=== PATIENT | female | born 1980 | race Caucasian/White ===

== ENCOUNTER 2016-05-30 13:08 | Emergency (ER) | payer MEDICARE, MEDICAID ==
[2016-05-30] MEDS ORDERED: ONDANSETRON 4 MG/2 ML VIAL IVP STA (13:36)
[2016-05-30] MEDS ORDERED: SODIUM CHLORIDE 0.9% 1,000 ML IV ONE (13:36)
[2016-05-30] MEDS ORDERED: ONDANSETRON 4 MG/2 ML VIAL ONE (13:48)
[2016-05-30] MEDS ORDERED: diphenhydrAMINE INJ 50 MG/ML VIAL IVP STA (14:14)
[2016-05-30] MEDS ORDERED: PROCHLORPERAZINE 10 MG/2 ML VIAL IVP STA (14:16)
[2016-05-30] MEDS ORDERED: diphenhydrAMINE INJ 50 MG/ML VIAL ONE (14:20)
[2016-05-30] MEDS ORDERED: PROCHLORPERAZINE 10 MG/2 ML VIAL ONE (14:20)
[2016-05-30] MEDS ORDERED: METOCLOPRAMIDE 10 MG/2 ML VIAL IVP STA (15:08)
[2016-05-30] MEDS ORDERED: MAG HYDROX/AL HYDROX/SIMETH 30 ML UDC PO STA (15:12)
[2016-05-30] MEDS ORDERED: LIDOCAINE VISCOUS 2% 15 ML UDC MM STA (15:12)
[2016-05-30] MEDS ORDERED: METOCLOPRAMIDE 10 MG/2 ML VIAL IVP ONE (15:16)
[2016-05-30] MEDS ORDERED: LIDOCAINE VISCOUS 2% 15 ML UDC MM ONE (15:17)
[2016-05-30] MEDS ORDERED: MAG HYDROX/AL HYDROX/SIMETH 30 ML UDC ONE (15:17)
== END 2016-05-30 15:52 | disposition home or self-care (01) ==
DX: K52.9 Noninfective gastroenteritis and colitis, unspecified (principal); E11.65 Type 2 diabetes mellitus with hyperglycemia; E11.42 Type 2 diabetes mellitus with diabetic polyneuropathy; Z79.4 Long term (current) use of insulin; E87.1 Hypo-osmolality and hyponatremia; I10 Essential (primary) hypertension; G40.909 Epilepsy, unspecified, not intractable, without status epilepticus; F17.200 Nicotine dependence, unspecified, uncomplicated; E66.01 Morbid (severe) obesity due to excess calories; Z68.41 Body mass index [BMI] 40.0-44.9, adult
CPT/HCPCS: 36415; 80053; 81003; 81025; 82009; 82803; 83690; 85025; 96361; 96374; 96375; 99283; 99284; A9270

== ENCOUNTER 2016-06-07 21:01 | Emergency (ER) | payer MEDICARE, MEDICAID ==
--- NOTE | 2016-06-07 21:51 | ED Physician Documentation ---
History of Present Illness - Stated complaint Stated Complaint: DIZZY - Chief complaint Chief Complaint: Neuro - History obtained from History obtained from: Patient - History of Present Illness Timing: Other (This is a 36-year-old woman with chronic idiopathic intracranial hypertension and diabetes. Has had diabetic ketoacidosis once. She was here in the hospital anyway, her has DKA, and she suddenly felt dizzy with an increased headache that's been going on for a few days. She feels lightheaded if she walks and dehydrated.) Review of Systems Constitutional: reports: Fatigue. denies: Fever, Chills Respiratory: denies: Dyspnea, Cough GI: reports: Nausea. 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 RESOURCE INTERN: None : Incontinence HEENT: None Psych: Anxiety, Bipolar disorder, Schizophrenia, ADD/ADHD, Post traumatic stress disorder Musculoskeletal: Osteoarthritis, Osteoporosis Derm: None - Past Surgical History Past Surgical History: Yes General: Cholecystectomy /HUMAN RESOURCE INTERN: Tubal ligation, Other HEENT: Tonsil/Adenoidectomy - Present Medications Home Medications: Ambulatory Orders Medication Instructions Recorded Confirmed Clonazepam [Klonopin] 1 mg PO QPM PRN 12/28/15 04/19/16 medroxyPROGESTERone [Provera] 2.5 mg PO DAILY 01/03/16 04/19/16 Insulin Regular, Human [Humulin R 8 units SQ .BID(ON 1CC SYRINGE) 03/11/1604/19 U-500] acetaZOLAMIDE ER [Diamox ER] 500 mg PO BID 03/11/16 04/19/16 Blood Sugar Diagnostic [Glucometer 1 each MC BID #100 strip 03/24/16 04/19/16 Strips] Blood-Glucose Meter [Glucometer] 1 each BID #1 each 03/24/16 04/19/16 Albuterol Sulf [Ventolin Hfa 2 puffs INH Q4HR PRN #1 inhaler 04/07/16 04/19/16 Inhaler] Benzonatate [Tessalon Perle] 100 mg PO TID PRN #20 capsule 04/07/16 04/19/16 Furosemide [Lasix] 20 mg PO DAILY 04/07/16 04/19/16 metFORMIN [Glucophage] 1,000 mg PO BIDWM 04/07/16 04/19/16 Hyoscyamine Sulfate [Levsin-Sl] 0.125 mg SL TID #14 tab.subl 05/30/16 Ondansetron Odt [Zofran] 4 mg TL Q6H PRN #10 tablet 05/30/16 - Allergies Allergies/Adverse Reactions: Allergies Allergy/AdvReac Type Severity Reaction Status Date / Time Latex, Natural Rubber Allergy Mild Rash Verified 06/07/16 21:07 acetaminophen [From Vicodin] Allergy Hives Verified 06/07/16 21:07 hydrocodone bitartrate * Allergy Hives Verified 06/07/16 21:07 [From Vicodin] Penicillins Allergy Rash Verified 06/07/16 21:07 adhesive AdvReac Intermediate chemical Verified 06/07/16 21:07 logan haloperidol [From Haldol] AdvReac Unknown Hallucinati Verified 06/07/16 21:07 ons iodine AdvReac Unknown Rash Verified 06/07/16 21:07 latex AdvReac Unknown Respiratory Verified 06/07/16 21:07 lamotrigine [From Lamictal] AdvReac Rash Verified 06/07/16 21:07 varenicline tartrate * AdvReac Hallucinati Verified 06/07/16 21:07 [From Chantix] ons steriods AdvReac Intermediate Unknown Uncoded 06/07/16 21:07 - Social History Does the pt smoke?: Yes Smoking Status: Current every day smoker Does the pt drink ETOH?: Yes Does the pt have substance abuse?: Yes - Immunizations Immunizations are current?: Yes - POLST Patient has POLST: No PD ED PE NORMAL - Vitals Vital signs reviewed: Yes - General General: Alert and oriented X 3, No acute distress - HEENT HEENT: PERRL, EOMI - Neck Neck: Supple, no meningeal sign, No bony TTP - Abdomen Abdomen: Soft, Non tender - Neuro Neuro: Alert and oriented X 3, collection clerk 2-12 intact, No motor deficit, No sensory deficit, Normal speech - Psych Psych: Normal mood, Normal affect Results - Vitals Vitals: Vital Signs - 24 hr 06/07/16 06/07/16 21:05 23:41 Temperature 37.0 C 36.7 C Heart Rate 86 78 Respiratory 18 18 Rate Blood Pressure 136/87 H 129/83 H O2 Saturation 97 95 Oxygen O2 Source Room air - Labs Labs: Laboratory Tests 06/07/16 22:00 Sodium 130 L Potassium 3.8 Chloride 94 L Carbon Dioxide 25 Anion Gap 11.0 BUN 14 Creatinine 0.7 Estimated GFR (MDRD) 96 Glucose 512 H* Calcium 8.9 PD MEDICAL DECISION MAKING - ED course ED course: 36-year-old woman with chronic headache syndrome related idiopathic intracranial hypertension presents with an exacerbation of same and also uncontrolled blood sugars. She was administered IV fluids and divided doses of IV insulin as well as pain and nausea medicine her with good relief. There is no evidence of DKA. Departure - Departure Disposition: 01 Home, Self Care Clinical Impression: Idiopathic intracranial hypertension, Hyperglycemia Condition: Good Record reviewed to determine appropriate education?: Yes Instructions: ED Cephalgia Unspecified Comments: Call your doctor to arrange a follow up appointment. Make the next available appointment. In the interim return anytime if worse or if new symptoms develop.
[2016-06-07] MEDS ORDERED: HYDROmorphone 1 MG/ML SYRINGE ONE ×2 (21:55→22:56)
[2016-06-07] MEDS ORDERED: SODIUM CHLORIDE 0.9% MINIBAG 100 ML IV ONE (21:55)
[2016-06-07] MEDS ORDERED: PROMETHAZINE 25 MG/1 ML VIAL ONE (21:55)
[2016-06-07] MEDS ORDERED: INSULIN REGULAR HUMAN 100 UNIT/1 ML 10 ML MDV ONE ×2 (21:55→23:24)
[2016-06-07] MEDS: PROMETHAZINE INJ 25 MG in SODIUM CHLORIDE 0.9% 50 ML IV STA (22:06)
[2016-06-07] MEDS: HYDROmorphone 1 MG/ML SYRINGE IVP STA ×2 (22:06→23:02)
[2016-06-07] MEDS: INSULIN REGULAR HUMAN 100 UNIT/1 ML 10 ML MDV IVP STA ×2 (22:06→23:28)
[2016-06-07] MEDS: SODIUM CHLORIDE 0.9% 1,000 ML IV ONE (22:07)
[2016-06-07 22:18] LABS: CALCIUM 8.9 mg/dL (8.5-10.3); CREATININE 0.7 mg/dL (0.4-1.0); POTASSIUM 3.8 mmol/L (3.5-5.0)
[2016-06-07 23:42] VITALS: BP 129/83
[2016-06-07] MEDS ORDERED: diphenhydrAMINE INJ 50 MG/ML VIAL ONE (23:47)
[2016-06-07] MEDS: diphenhydrAMINE INJ 50 MG/ML VIAL IVP STA (23:49)
== END 2016-06-07 23:56 | disposition home or self-care (01) ==
LOC: ED 21:01
DX: G93.2 Benign intracranial hypertension (principal); E11.65 Type 2 diabetes mellitus with hyperglycemia; E11.42 Type 2 diabetes mellitus with diabetic polyneuropathy; Z79.4 Long term (current) use of insulin; Z79.84 Long term (current) use of oral hypoglycemic drugs; E78.00 Pure hypercholesterolemia, unspecified; G47.30 Sleep apnea, unspecified; K21.9 Gastro-esophageal reflux disease without esophagitis; M19.90 Unspecified osteoarthritis, unspecified site; Z87.11 Personal history of peptic ulcer disease; F17.200 Nicotine dependence, unspecified, uncomplicated
CPT/HCPCS: 36415; 80048; 96365; 96375; 96376; 99284

== ENCOUNTER 2016-06-26 | Outpatient (CLI) | payer MEDICARE, MEDICAID | END 2016-06-26 08:48 | disposition critical access hospital (66) | CPT/HCPCS: A0425; A0429 ==

== ENCOUNTER 2016-06-26 08:52 | Emergency (ER) | payer MEDICARE, MEDICAID ==
[2016-06-26] MEDS ORDERED: diphenhydrAMINE INJ 50 MG/ML VIAL IM STA (10:39)
[2016-06-26] MEDS ORDERED: diphenhydrAMINE INJ 50 MG/ML VIAL ONE (10:43)
[2016-06-26] MEDS ORDERED: FLUCONAZOLE 100 MG TABLET PO STA (13:07)
[2016-06-26] MEDS ORDERED: FLUCONAZOLE 100 MG TABLET ONE (13:09)
== END 2016-06-26 13:25 | disposition home or self-care (01) ==
DX: R21 Rash and other nonspecific skin eruption (principal); E11.42 Type 2 diabetes mellitus with diabetic polyneuropathy; Z79.4 Long term (current) use of insulin; Z79.84 Long term (current) use of oral hypoglycemic drugs; F17.200 Nicotine dependence, unspecified, uncomplicated
CPT/HCPCS: 87210; 87220; 87491; 87591; 96372; 99283; 99284; A9270

== ENCOUNTER 2016-07-03 13:51 | Emergency (ER) | payer MEDICARE, MEDICAID ==
--- NOTE | 2016-07-03 14:40 | ED Physician Documentation ---
History of Present Illness - Stated complaint Stated Complaint: LT EYE SWOLLEN/FEMALE - Chief complaint Chief Complaint: General - Additonal information Additional information: hx from pt to ER for two concerns 1) swellign to L upper eyelid and itchig - no trauma or FB 2) continued vag dc - seen in ER within the week - had a pelvic - GC chlamydia neg, wet prep neg for clue cells and trich, KAMALA + for fungal elements Review of Systems Constitutional: denies: Fever Eyes: reports: Irritation : reports: Discharge Immunocompromised: denies: Immunocompromised PD PAST MEDICAL HISTORY - Past Medical History Cardiovascular: Hypertension, High cholesterol Respiratory: Sleep apnea Neuro: Headache/migraine, Peripheral neuropathy, Seizure disorder, Other Endocrine/Autoimmune: Type 2 diabetes GI: GERD, Ulcers, Chronic diarrhea 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 : Incontinence HEENT: None Psych: Anxiety, Bipolar disorder, Schizophrenia, ADD/ADHD, Post traumatic stress disorder Musculoskeletal: Osteoarthritis, Osteoporosis Derm: None - Past Surgical History Past Surgical History: Yes General: Cholecystectomy /PRESS HAND SUPERVISOR: Tubal ligation, Other HEENT: Tonsil/Adenoidectomy - Present Medications Home Medications: Ambulatory Orders Medication Instructions Recorded Confirmed medroxyPROGESTERone [Provera] 2.5 mg PO DAILY 01/03/16 04/19/16 Insulin Regular, Human [Humulin R 8 units SQ .BID(ON 1CC SYRINGE) 03/11/1607/03 U-500] acetaZOLAMIDE ER [Diamox ER] 500 mg PO BID 03/11/16 07/03/16 metFORMIN [Glucophage] 1,000 mg PO BIDWM 04/07/16 07/03/16 Clindamycin [Cleocin] 300 mg PO Q6H 7 Days 07/03/16 Clotrimazole [Clotrimazole 3] 1 applic VG QPM #7 cream.appl 07/03/16 - Allergies Allergies/Adverse Reactions: Allergies Allergy/AdvReac Type Severity Reaction Status Date / Time Latex, Natural Rubber Allergy Mild Rash Verified 06/07/16 21:07 acetaminophen [From Vicodin] Allergy Hives Verified 06/07/16 21:07 hydrocodone bitartrate * Allergy Hives Verified 06/07/16 21:07 [From Vicodin] Penicillins Allergy Rash Verified 06/07/16 21:07 adhesive AdvReac Intermediate chemical Verified 06/07/16 21:07 logan haloperidol [From Haldol] AdvReac Unknown Hallucinati Verified 06/07/16 21:07 ons iodine AdvReac Unknown Rash Verified 06/07/16 21:07 latex AdvReac Unknown Respiratory Verified 06/07/16 21:07 lamotrigine [From Lamictal] AdvReac Rash Verified 06/07/16 21:07 varenicline tartrate * AdvReac Hallucinati Verified 06/07/16 21:07 [From Chantix] ons steriods AdvReac Intermediate Unknown Uncoded 06/07/16 21:07 - Social History Does the pt smoke?: Yes Smoking Status: Current every day smoker Does the pt drink ETOH?: Yes Does the pt have substance abuse?: Yes - Immunizations Immunizations are current?: Yes - POLST Patient has POLST: No PD ED PE NORMAL - Vitals Vital signs reviewed: Yes (afebrile) - HEENT HEENT: PERRL, EOMI, Other (L upper out lid erythematous and swolln, globe no injected, no dc, no flourescin uptake, no FB even with lid eversion, globe soft) - Cardiac Cardiac: RRR - Respiratory Respiratory: No respiratory distress, Clear bilaterally - Abdomen Abdomen: Soft, Non tender Results - Vitals Vitals: Vital Signs - 24 hr 07/03/16 13:57 Temperature 36.1 C L Heart Rate 92 Respiratory 18 Rate Blood Pressure 117/78 O2 Saturation 97 Oxygen O2 Source Room air - Labs Labs: Laboratory Tests 07/03/16 15:03 Urine Color YELLOW Urine Clarity SL. CLOUDY Urine pH 6.5 Ur Specific [place] 1.015 Urine Protein 30 H Urine Glucose (UA) >=1000 H Urine Ketones 15 H Urine Occult Blood TRACE-LYSE Urine Nitrite NEGATIVE Urine Bilirubin NEGATIVE Urine Urobilinogen 0.2 (NORMAL) Ur Leukocyte Esterase TRACE H Urine RBC 0-5 Urine WBC >25 H Ur Squamous Epith Cells MANY Squamous H Urine Bacteria Few Ur Microscopic Review INDICATED Urine Culture Comments NOT INDICATED Urine HCG, Qual NEGATIVE PD MEDICAL DECISION MAKING - ED course ED course: pt was placed in room and I went in to see her within approx 30 min of arrival and she was not there - presumed LWBS vis acuity was slightly dec in affected eye she did not given a urine sample prior to leaving pt returned and was seen eye concern is a mild lid cellultis - will tx clinda 2/2 pnc allergy she has already been fully worked up for the vag dc last visit in the ER - today afebrile and no abd TTP, will rx vag cream but defer further eval to PMD who she has an appt with next week Departure - Departure Disposition: 01 Home, Self Care Clinical Impression: Cellulitis of left eyelid, Vagina, candidiasis Condition: Good Instructions: ED Infec Skin Cellulitis, ED Vaginitis Sabiha Follow-Up: LOLA PERSON [Primary Care Provider] - Prescriptions: Clindamycin [Cleocin] 300 mg PO Q6H 7 Days Clotrimazole [Clotrimazole 3] 1 applic VG QPM #7 cream.appl
[2016-07-03 15:15] LABS: BILIRUBIN,URINE NEGATIVE (NEGATIVE); PH,URINE 6.5 PH (5.0-7.5)
[2016-07-03 15:20] LABS: HCG UR QUAL NEGATIVE; UA w/ MICROSCOPIC CHARGE YES
[2016-07-03 15:29] LABS: UR CULTURE IF IND NOT INDICATED; WBC,URINE >25 /HPF (0-5)
[2016-07-03 16:16] VITALS: BP 150/82
== END 2016-07-03 16:16 | disposition home or self-care (01) ==
LOC: ED 13:51
DX: H00.034 Abscess of left upper eyelid (principal); B37.3 Candidiasis of vulva and vagina; I10 Essential (primary) hypertension; E11.42 Type 2 diabetes mellitus with diabetic polyneuropathy; Z79.4 Long term (current) use of insulin; G40.909 Epilepsy, unspecified, not intractable, without status epilepticus; F17.200 Nicotine dependence, unspecified, uncomplicated; Z88.0 Allergy status to penicillin
CPT/HCPCS: 81001; 81003; 81025; 87086; 99283; 99284

== ENCOUNTER 2016-07-11 19:13 | Emergency (ER) | payer MEDICARE, MEDICAID ==
[2016-07-11] MEDS ORDERED: INSULIN REGULAR HUMAN 100 UNIT/1 ML 10 ML MDV IVP STA (20:50)
[2016-07-11] MEDS ORDERED: INSULIN REGULAR HUMAN 100 UNIT/1 ML 10 ML MDV SUBQ STA (20:50)
[2016-07-11] MEDS ORDERED: SODIUM CHLORIDE 0.9% 1,000 ML IV ONE (20:50)
[2016-07-11] MEDS ORDERED: INSULIN REGULAR HUMAN 100 UNIT/1 ML 10 ML MDV ONE ×2 (21:17→22:11)
[2016-07-11] MEDS ORDERED: diphenhydrAMINE 25 MG CAPSULE PO STA (22:15)
[2016-07-11] MEDS ORDERED: diphenhydrAMINE 25 MG CAPSULE PO ONE (22:34)
== END 2016-07-11 23:12 | disposition home or self-care (01) ==
DX: E11.65 Type 2 diabetes mellitus with hyperglycemia (principal); E11.42 Type 2 diabetes mellitus with diabetic polyneuropathy; Z79.4 Long term (current) use of insulin; I10 Essential (primary) hypertension; G40.909 Epilepsy, unspecified, not intractable, without status epilepticus; F17.200 Nicotine dependence, unspecified, uncomplicated
CPT/HCPCS: 36415; 80053; 82009; 82803; 83690; 85025; 96360; 99283; 99284; A9270; J1815

== ENCOUNTER 2016-07-21 14:33 | Emergency (ER) | payer MEDICARE, MEDICAID ==
[2016-07-21] MEDS ORDERED: SODIUM CHLORIDE 0.9% 2,000 ML IV ONE (16:14)
[2016-07-21] MEDS ORDERED: SODIUM CHLORIDE 0.9% 1,000 ML IV ONE (18:03)
[2016-07-21] MEDS ORDERED: INSULIN REGULAR HUMAN 100 UNIT/1 ML 10 ML MDV SUBQ STA (19:28)
[2016-07-21] MEDS ORDERED: INSULIN REGULAR HUMAN 100 UNIT/1 ML 10 ML MDV ONE (19:43)
== END 2016-07-21 21:12 | disposition home or self-care (01) ==
DX: E11.65 Type 2 diabetes mellitus with hyperglycemia (principal); T38.3X6A Underdosing of insulin and oral hypoglycemic [antidiabetic] drugs, initial encounter; E11.42 Type 2 diabetes mellitus with diabetic polyneuropathy; Z79.4 Long term (current) use of insulin; I10 Essential (primary) hypertension; G40.909 Epilepsy, unspecified, not intractable, without status epilepticus; E66.01 Morbid (severe) obesity due to excess calories; Z68.41 Body mass index [BMI] 40.0-44.9, adult; Z87.891 Personal history of nicotine dependence
CPT/HCPCS: 36415; 80053; 81003; 81025; 82009; 82803; 83690; 85025; 87275; 87276; 93005; 93010; 96360; 96361; 99284; J1815

== ENCOUNTER 2016-08-04 16:29 | Emergency (ER) | payer MEDICARE, MEDICAID ==
[2016-08-04] MEDS ORDERED: FLUCONAZOLE 100 MG TABLET ONE (18:44)
[2016-08-04] MEDS: FLUCONAZOLE 100 MG TABLET PO STA (18:54)
== END 2016-08-04 18:57 | disposition home or self-care (01) ==
DX: J06.9 Acute upper respiratory infection, unspecified (principal); B97.89 Other viral agents as the cause of diseases classified elsewhere; B37.3 Candidiasis of vulva and vagina; I10 Essential (primary) hypertension; E11.42 Type 2 diabetes mellitus with diabetic polyneuropathy; Z79.4 Long term (current) use of insulin; G40.909 Epilepsy, unspecified, not intractable, without status epilepticus; Z87.891 Personal history of nicotine dependence
CPT/HCPCS: 87210; 87220; 99283; A9270

== ENCOUNTER 2016-08-08 16:27 | Emergency (ER) | payer MEDICARE, MEDICAID ==
[2016-08-08] MEDS ORDERED: LIDOCAINE-EPINEPH-TETRACAINE 3 ML SYRINGE TOP STA (17:02)
[2016-08-08] MEDS ORDERED: LIDOCAINE-EPINEPH-TETRACAINE 3 ML SYRINGE TOP ONE (17:23)
[2016-08-08] MEDS ORDERED: SULFAMETH/TRIMETH DS 800/160 MG TABLET PO STA (18:33)
[2016-08-08] MEDS ORDERED: SULFAMETH/TRIMETH DS 800/160 MG TABLET PO ONE (18:34)
== END 2016-08-08 18:43 | disposition home or self-care (01) ==
DX: L02.01 Cutaneous abscess of face (principal); E11.42 Type 2 diabetes mellitus with diabetic polyneuropathy; Z79.4 Long term (current) use of insulin; Z79.84 Long term (current) use of oral hypoglycemic drugs; I10 Essential (primary) hypertension; E78.00 Pure hypercholesterolemia, unspecified; G47.30 Sleep apnea, unspecified; K21.9 Gastro-esophageal reflux disease without esophagitis; M19.90 Unspecified osteoarthritis, unspecified site; Z87.11 Personal history of peptic ulcer disease; M81.0 Age-related osteoporosis without current pathological fracture; Z87.891 Personal history of nicotine dependence
CPT/HCPCS: 10160; 36415; 87070; 87205; 99283; A9270

== ENCOUNTER 2016-08-27 22:49 | Emergency (ER) | payer MEDICARE, MEDICAID ==
[2016-08-27] MEDS ORDERED: KETOROLAC 60 MG/2 ML VIAL IVP STA (23:22)
[2016-08-27] MEDS ORDERED: SODIUM CHLORIDE 0.9% 1,000 ML IV ONE (23:22)
[2016-08-27] MEDS ORDERED: cefTRIAXone 1 GM in SODIUM CHLORIDE 0.9% MINIBAG 100 ML IV STA (23:23)
[2016-08-27] MEDS ORDERED: PROCHLORPERAZINE 10 MG/2 ML VIAL IVP STA (23:23)
[2016-08-27] MEDS ORDERED: diphenhydrAMINE INJ 50 MG/ML VIAL IVP STA (23:23)
[2016-08-27] MEDS ORDERED: IPRATROPIUM/ALBUTEROL 3 ML NEB INH STA (23:28)
[2016-08-27] MEDS ORDERED: KETOROLAC 30 MG/ML VIAL ONE (23:29)
[2016-08-27] MEDS ORDERED: diphenhydrAMINE INJ 50 MG/ML VIAL ONE (23:29)
[2016-08-27] MEDS ORDERED: cefTRIAXone 1 GM VIAL ONE (23:30)
[2016-08-27] MEDS ORDERED: PROCHLORPERAZINE 10 MG/2 ML VIAL ONE (23:30)
[2016-08-27] MEDS ORDERED: IPRATROPIUM/ALBUTEROL 3 ML NEB INH ONE (23:37)
[2016-08-28] MEDS ORDERED: HYDROmorphone 1 MG/ML SYRINGE IVP STA (00:34)
[2016-08-28] MEDS ORDERED: HYDROmorphone 1 MG/ML SYRINGE ONE (00:40)
[2016-08-28] MEDS ORDERED: ONDANSETRON 4 MG/2 ML VIAL IVP STA (00:50)
[2016-08-28] MEDS ORDERED: ONDANSETRON 4 MG/2 ML VIAL ONE (00:50)
== END 2016-08-28 01:19 | disposition home or self-care (01) ==
DX: G43.909 Migraine, unspecified, not intractable, without status migrainosus (principal); H66.91 Otitis media, unspecified, right ear; I10 Essential (primary) hypertension; E78.00 Pure hypercholesterolemia, unspecified; G47.30 Sleep apnea, unspecified; E11.42 Type 2 diabetes mellitus with diabetic polyneuropathy; Z79.4 Long term (current) use of insulin; Z79.84 Long term (current) use of oral hypoglycemic drugs; K21.9 Gastro-esophageal reflux disease without esophagitis; M19.90 Unspecified osteoarthritis, unspecified site; Z87.11 Personal history of peptic ulcer disease; F17.200 Nicotine dependence, unspecified, uncomplicated
CPT/HCPCS: 36415; 80053; 83690; 85025; 94640; 96374; 96375; 99283; 99284; J1170; J7620

== ENCOUNTER 2016-08-30 17:07 | Emergency (ER) | payer MEDICARE, MEDICAID ==
[2016-08-30] MEDS ORDERED: HALOPERIDOL 5 MG/ML VIAL IVP STA (17:40)
[2016-08-30] MEDS ORDERED: HALOPERIDOL 5 MG/ML VIAL ONE (17:57)
[2016-08-30] MEDS ORDERED: diphenhydrAMINE INJ 50 MG/ML VIAL IVP STA (18:12)
[2016-08-30] MEDS ORDERED: PROMETHAZINE INJ 25 MG in SODIUM CHLORIDE 0.9% 50 ML IV STA (18:12)
[2016-08-30] MEDS ORDERED: KETOROLAC 60 MG/2 ML VIAL IVP STA (18:12)
[2016-08-30] MEDS ORDERED: PROMETHAZINE 25 MG/1 ML VIAL ONE (18:16)
[2016-08-30] MEDS ORDERED: KETOROLAC 30 MG/ML VIAL ONE (18:17)
[2016-08-30] MEDS ORDERED: diphenhydrAMINE INJ 50 MG/ML VIAL ONE (18:17)
[2016-08-30] MEDS ORDERED: FUROSEMIDE 40 MG/4 ML VIAL IVP STA (19:03)
[2016-08-30] MEDS ORDERED: MAGNESIUM SULFATE 2 GRAM 50 ML IV ONE ×2 (19:03→19:06)
[2016-08-30] MEDS ORDERED: FUROSEMIDE 40 MG/4 ML VIAL ONE (19:06)
[2016-08-30] MEDS ORDERED: SODIUM CHLORIDE 0.9% 1,000 ML IV ONE (20:51)
[2016-08-30] MEDS ORDERED: LIDOCAINE TOPICAL 4% 50 ML BOTTLE MM STA (20:52)
[2016-08-30] MEDS ORDERED: LIDOCAINE TOPICAL 4% 50 ML BOTTLE MM ONE (20:54)
== END 2016-08-30 21:17 | disposition home or self-care (01) ==
DX: G43.909 Migraine, unspecified, not intractable, without status migrainosus (principal); I10 Essential (primary) hypertension; E78.00 Pure hypercholesterolemia, unspecified; G47.30 Sleep apnea, unspecified; E11.42 Type 2 diabetes mellitus with diabetic polyneuropathy; Z79.4 Long term (current) use of insulin; Z79.84 Long term (current) use of oral hypoglycemic drugs; K21.9 Gastro-esophageal reflux disease without esophagitis; Z87.11 Personal history of peptic ulcer disease; M19.90 Unspecified osteoarthritis, unspecified site; F17.200 Nicotine dependence, unspecified, uncomplicated

== ENCOUNTER 2016-08-31 20:46 | Emergency (ER) | payer MEDICARE, MEDICAID ==
[2016-08-31] MEDS ORDERED: SODIUM CHLORIDE 0.9% 1,000 ML IV ONE (22:59)
[2016-08-31] MEDS ORDERED: PROCHLORPERAZINE 10 MG/2 ML VIAL IVP STA (23:00)
[2016-08-31] MEDS ORDERED: KETOROLAC 30 MG/ML VIAL IVP STA (23:00)
[2016-08-31] MEDS ORDERED: diphenhydrAMINE INJ 50 MG/ML VIAL IVP STA (23:00)
[2016-08-31] MEDS ORDERED: LIDOCAINE TOPICAL 4% 50 ML BOTTLE MM STA (23:01)
[2016-08-31] MEDS ORDERED: PROCHLORPERAZINE 10 MG/2 ML VIAL ONE (23:12)
[2016-08-31] MEDS ORDERED: KETOROLAC 30 MG/ML VIAL ONE (23:12)
[2016-08-31] MEDS ORDERED: diphenhydrAMINE INJ 50 MG/ML VIAL ONE (23:12)
[2016-08-31] MEDS ORDERED: LIDOCAINE TOPICAL 4% 50 ML BOTTLE MM ONE (23:13)
== END 2016-09-01 00:45 | disposition home or self-care (01) ==
DX: R51 Headache (principal); I10 Essential (primary) hypertension; E78.00 Pure hypercholesterolemia, unspecified; G47.30 Sleep apnea, unspecified; E11.42 Type 2 diabetes mellitus with diabetic polyneuropathy; Z79.4 Long term (current) use of insulin; K21.9 Gastro-esophageal reflux disease without esophagitis; Z87.11 Personal history of peptic ulcer disease; M19.90 Unspecified osteoarthritis, unspecified site; F17.200 Nicotine dependence, unspecified, uncomplicated

== ENCOUNTER 2016-09-02 05:55 | Outpatient (CLI) | payer MEDICARE, MEDICAID | END 2016-09-02 05:56 | disposition home or self-care (01) | DX: R51 Headache (principal); R56.9 Unspecified convulsions | CPT/HCPCS: A0425; A0429 ==

== ENCOUNTER 2016-09-02 06:01 | Emergency (ER) | payer MEDICARE, MEDICAID | END 2016-09-02 07:45 | disposition home or self-care (01) | DX: G40.909 Epilepsy, unspecified, not intractable, without status epilepticus (principal); I10 Essential (primary) hypertension; E78.00 Pure hypercholesterolemia, unspecified; G47.30 Sleep apnea, unspecified; E11.42 Type 2 diabetes mellitus with diabetic polyneuropathy; Z79.4 Long term (current) use of insulin; K21.9 Gastro-esophageal reflux disease without esophagitis; Z87.11 Personal history of peptic ulcer disease; F17.200 Nicotine dependence, unspecified, uncomplicated ==

== ENCOUNTER 2016-09-03 18:35 | Outpatient (CLI) | payer MEDICARE, MEDICAID | END 2016-09-03 18:36 | disposition home or self-care (01) | DX: Z01.818 Encounter for other preprocedural examination (principal); F44.5 Conversion disorder with seizures or convulsions ==

== ENCOUNTER 2016-09-04 05:01 | Outpatient (CLI) | payer MEDICARE, MEDICAID | END 2016-09-04 05:02 | disposition critical access hospital (66) | DX: R56.9 Unspecified convulsions (principal); W01.198A Fall on same level from slipping, tripping and stumbling with subsequent striking against other object, initial encounter; Y92.012 Bathroom of single-family (private) house as the place of occurrence of the external cause | CPT/HCPCS: A0425; A0429 ==

== ENCOUNTER 2016-09-04 05:06 | Emergency (ER) | payer MEDICARE, MEDICAID ==
[2016-09-04] MEDS ORDERED: oxyCODONE 5 MG TABLET PO STA (05:42)
[2016-09-04] MEDS ORDERED: oxyCODONE 5 MG TABLET ONE (05:46)
== END 2016-09-04 07:08 | disposition home or self-care (01) ==
DX: G40.909 Epilepsy, unspecified, not intractable, without status epilepticus (principal); S46.912A Strain of unspecified muscle, fascia and tendon at shoulder and upper arm level, left arm, initial encounter; S09.90XA Unspecified injury of head, initial encounter; S19.9XXA Unspecified injury of neck, initial encounter; W01.0XXA Fall on same level from slipping, tripping and stumbling without subsequent striking against object, initial encounter; T50.996A Underdosing of other drugs, medicaments and biological substances, initial encounter; I10 Essential (primary) hypertension; E78.00 Pure hypercholesterolemia, unspecified; G47.30 Sleep apnea, unspecified; E11.42 Type 2 diabetes mellitus with diabetic polyneuropathy; Z79.4 Long term (current) use of insulin; Z79.84 Long term (current) use of oral hypoglycemic drugs; K21.9 Gastro-esophageal reflux disease without esophagitis; Z87.11 Personal history of peptic ulcer disease; M19.90 Unspecified osteoarthritis, unspecified site; F17.200 Nicotine dependence, unspecified, uncomplicated
CPT/HCPCS: 70450; 72125; 73030; 99284; A9270

== ENCOUNTER 2016-09-07 22:35 | Emergency (ER) | payer MEDICARE, MEDICAID ==
[2016-09-07] MEDS ORDERED: IBUPROFEN 600 MG TABLET PO STA (23:46)
[2016-09-07] MEDS ORDERED: MAG HYDROX/AL HYDROX/SIMETH 30 ML UDC PO STA (23:46)
[2016-09-07] MEDS ORDERED: MAG HYDROX/AL HYDROX/SIMETH 30 ML UDC ONE (23:52)
[2016-09-07] MEDS ORDERED: IBUPROFEN 600 MG TABLET PO ONE (23:52)
== END 2016-09-08 00:10 | disposition home or self-care (01) ==
DX: S20.229A Contusion of unspecified back wall of thorax, initial encounter (principal); W01.0XXA Fall on same level from slipping, tripping and stumbling without subsequent striking against object, initial encounter; Y92.009 Unspecified place in unspecified non-institutional (private) residence as the place of occurrence of the external cause

== ENCOUNTER 2016-09-08 16:57 | Emergency (ER) | payer MEDICARE, MEDICAID ==
[2016-09-08] MEDS ORDERED: KETOROLAC 60 MG/2 ML VIAL IM STA (18:50)
[2016-09-08] MEDS ORDERED: ONDANSETRON ODT 4 MG TABLET TL STA (18:51)
[2016-09-08] MEDS ORDERED: INSULIN REGULAR HUMAN 100 UNIT/1 ML 10 ML MDV SUBQ STA (18:51)
[2016-09-08] MEDS ORDERED: ONDANSETRON ODT 4 MG TABLET ONE (18:56)
[2016-09-08] MEDS ORDERED: KETOROLAC 60 MG/2 ML VIAL ONE (18:56)
[2016-09-08] MEDS ORDERED: INSULIN REGULAR HUMAN 100 UNIT/1 ML 10 ML MDV ONE (18:57)
[2016-09-08] MEDS ORDERED: NITROFURANTOIN MACRO 100 MG CAPSULE PO STA (19:22)
[2016-09-08] MEDS ORDERED: NITROFURANTOIN MACRO 100 MG CAPSULE PO ONE (19:23)
== END 2016-09-08 20:03 | disposition home or self-care (01) ==
DX: S16.1XXA Strain of muscle, fascia and tendon at neck level, initial encounter (principal); N30.00 Acute cystitis without hematuria; E11.65 Type 2 diabetes mellitus with hyperglycemia; E11.42 Type 2 diabetes mellitus with diabetic polyneuropathy; Z79.4 Long term (current) use of insulin; I10 Essential (primary) hypertension; F17.200 Nicotine dependence, unspecified, uncomplicated; S20.229A Contusion of unspecified back wall of thorax, initial encounter; W01.0XXA Fall on same level from slipping, tripping and stumbling without subsequent striking against object, initial encounter; Y92.009 Unspecified place in unspecified non-institutional (private) residence as the place of occurrence of the external cause
CPT/HCPCS: 81001; 81025; 87086; 96372; 99282; 99283; A9270; J1815; Q0162

== ENCOUNTER 2016-09-15 13:14 | Outpatient (CLI) | payer MEDICARE, MEDICAID | END 2016-09-15 13:15 | disposition home or self-care (01) | DX: G47.33 Obstructive sleep apnea (adult) (pediatric) (principal) | CPT/HCPCS: 99213; G0463 ==

== ENCOUNTER 2016-10-06 13:40 | Outpatient (CLI) | payer MEDICARE, MEDICAID | END 2016-10-06 13:41 | disposition home or self-care (01) | DX: R05 Cough (principal); R50.9 Fever, unspecified; M62.81 Muscle weakness (generalized) ==

== ENCOUNTER 2016-10-07 12:17 | Emergency (ER) | payer MEDICARE, MEDICAID ==
[2016-10-07] MEDS ORDERED: SODIUM CHLORIDE 0.9% 1,000 ML IV ONE (12:59)
[2016-10-07] MEDS ORDERED: KETOROLAC 60 MG/2 ML VIAL IVP STA (13:00)
--- NOTE | 2016-10-07 13:03 | ED Physician Documentation ---
History of Present Illness - Stated complaint Stated Complaint: WEAKNESS,SLEEPYNESS - Chief complaint Chief Complaint: General - History obtained from History obtained from: Patient - Additonal information Additional information: 36-year-old woman with morbid obesity, pseudotumor, diabetes, seizures (I think she actually probably as more pseudoseizures) for which she takes zonegran. She presents today with several complaints, increased seizure frequency, almost daily, without injury. She also says that after having sex last night she developed a lot of brown drainage and pelvic pain. She thinks she may be running a fever and has some urinary frequency but she also feels very thirsty and her blood sugars are running high. Review of Systems Ten Systems: 10 systems reviewed and negative Constitutional: reports: Fever (subjective) Eyes: denies: Loss of vision, Decreased vision Ears: reports: Ear pain (bilateral). 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 HEENT: None Psych: Anxiety, Bipolar disorder, Schizophrenia, ADD/ADHD, Post traumatic stress disorder Musculoskeletal: Osteoarthritis, Osteoporosis Derm: None - Past Surgical History Past Surgical History: Yes General: Cholecystectomy /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: Tubal ligation, Other HEENT: Tonsil/Adenoidectomy - Present Medications Home Medications: Ambulatory Orders Medication Instructions Recorded Confirmed Insulin Regular, Human [Humulin R 25 units SQ BID 03/11/16 09/04/16 U-500] acetaZOLAMIDE ER [Diamox ER] 500 mg PO BID 03/11/16 09/04/16 metFORMIN [Glucophage] 1,000 mg PO BIDWM 04/07/16 09/04/16 Atorvastatin [Lipitor] 40 mg ORAL DAILY 07/21/16 09/04/16 Zonisamide 50 mg ORAL BID 07/21/16 09/04/16 Sulfamethoxazole/Trimethoprim 1 each PO BID #14 tablet 08/08/16 09/04/16 [Bactrim Ds Tablet] Ondansetron Odt [Zofran] 4 mg TL Q6H PRN #10 tablet 08/10/16 09/04/16 oxyCODONE [Roxicodone] 5 mg PO Q4-6H PRN #10 tablet 08/10/16 09/04/16 Azithromycin [Zithromax] 250 mg PO DAILY #6 tablet 08/28/16 09/04/16 Nitrofurantoin Monohyd/M-Cryst 100 mg PO BID 5 Days 09/08/16 [Macrobid 100 mg Capsule] Neomycin/Polymyx/Hc Otic Drops 4 drops OT TID #1 bottle 10/07/16 [Cortisporin Ear Susp] - Allergies Allergies/Adverse Reactions: Allergies Allergy/AdvReac Type Severity Reaction Status Date / Time Latex, Natural Rubber Allergy Mild Rash Verified 10/07/16 12:27 acetaminophen [From Vicodin] Allergy Hives Verified 10/07/16 12:27 hydrocodone bitartrate * Allergy Hives Verified 10/07/16 12:27 [From Vicodin] Penicillins Allergy Rash Verified 10/07/16 12:27 tramadol Allergy Rash Verified 10/07/16 12:27 adhesive AdvReac Intermediate chemical Verified 10/07/16 12:27 logan haloperidol [From Haldol] AdvReac Unknown Hallucinati Verified 10/07/16 12:27 ons iodine AdvReac Unknown Rash Verified 10/07/16 12:27 latex AdvReac Unknown Respiratory Verified 10/07/16 12:27 lamotrigine [From Lamictal] AdvReac Rash Verified 10/07/16 12:27 varenicline tartrate * AdvReac Hallucinati Verified 10/07/16 12:27 [From Chantix] ons steriods AdvReac Intermediate Unknown Uncoded 09/04/16 05:21 - Social History Does the pt smoke?: Yes Smoking Status: Current every day smoker Does the pt drink ETOH?: Yes Does the pt have substance abuse?: Yes - Immunizations Immunizations are current?: Yes - POLST Patient has POLST: No PD ED PE NORMAL - Vitals Vital signs reviewed: Yes - General General: Alert and oriented X 3, No acute distress - HEENT HEENT: Ears normal (B OE), Pharynx benign - Neck Neck: Supple, no meningeal sign, No bony TTP - Cardiac Cardiac: RRR, No murmur - Respiratory Respiratory: No respiratory distress, Clear bilaterally - Abdomen Abdomen: Soft, Non tender - Female Female : Car Detailer present (Francesca RN), Other (Some thick white discharge, no CMT or significant adnexal TTP.) - Back Back: No CVA TTP, No spinal TTP - Derm Derm: Normal color, Warm and dry - Extremities Extremities: No deformity, No tenderness to palpate, No edema, No calf tenderness / cord - Neuro Neuro: Alert and oriented X 3, 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 engraver 2-12 intact, Normal speech - Psych Psych: Normal mood, Normal affect Results - Vitals Vitals: Vital Signs - 24 hr 10/07/16 12:19 Temperature 36.5 C Heart Rate 107 H Respiratory 20 Rate Blood Pressure 129/89 H O2 Saturation 97 Oxygen O2 Source Room air - Labs Labs: Microbiology 10/07/16 13:45 KAMALA Preparation - Final Fluid - Vaginal 10/07/16 13:45 Wet Prep - Final Genital - Vaginal Laboratory Tests 10/07/16 10/07/16 10/07/16 13:19 13:19 14:10 WBC 9.2 RBC 5.28 Hgb 16.0 Hct 44.8 MCV 85.0 MCH 30.3 MCHC 35.7 RDW 14.5 Plt Count 241 MPV 7.5 L Neut # 6.1 Lymph # 2.3 [place]ier # 0.6 Eos # 0.2 Baso # 0.1 Absolute Nucleated RBC 0.01 Nucleated RBCs 0.1 Sodium 130 L Potassium 3.7 Chloride 95 L Carbon Dioxide 25 Anion Gap 10.0 BUN 6 Creatinine 0.5 Estimated GFR (MDRD) 141 Glucose 337 H Calcium 9.4 Total Bilirubin 0.5 AST 13 ALT 18 Alkaline Phosphatase 81 Total Protein 7.2 Albumin 4.1 Globulin 3.1 Albumin/Globulin Ratio 1.3 Lipase 23 Urine Color YELLOW Urine Clarity CLEAR Urine pH 7.0 Ur Specific [place] 1.010 Urine Protein NEGATIVE Urine Glucose (UA) >=1000 H Urine Ketones NEGATIVE Urine Occult Blood NEGATIVE Urine Nitrite NEGATIVE Urine Bilirubin NEGATIVE Urine Urobilinogen 0.2 (NORMAL) Ur Leukocyte Esterase NEGATIVE Ur Microscopic Review NOT INDICATED Urine Culture Comments NOT INDICATED Urine HCG, Qual NEGATIVE PD MEDICAL DECISION MAKING - ED course ED course: 36-year-old woman presents with multiple complaints including increased seizure versus pseudoseizure frequency, elevated blood sugars, pelvic pain after sex and discharge. Her blood work was really only notable for hyperglycemia which was treated with IV fluids and insulin here. Her pelvic exam was without evidence of PID. Wet mount and KAMALA were negative. Chlamydia pending on discharge. 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 Make the next available appointment. In the interim return anytime if worse or if new symptoms develop. Your blood pressure was elevated today on check in to the emergency department. This does not mean that you have hypertension, it is a common phenomenon to check into the emergency department and have elevated blood pressure. I recommend that you see your primary care physician within the week to have it rechecked when you're feeling better.
[2016-10-07] MEDS ORDERED: KETOROLAC 30 MG/ML VIAL ONE (13:22)
[2016-10-07 13:33] LABS: BASOPHILS # (AUTO) 0.1 10^3/uL (0.0-0.1); BASOPHILS % (AUTO) 0.9 %; EOSINOPHILS # (AUTO) 0.2 10^3/uL (0.0-0.7); EOSINOPHILS % (AUTO) 1.7 %; HCT - HEMATOCRIT 44.8 % (37.0-47.0); LYMPHOCYTES # (AUTO) 2.3 10^3/uL (1.5-3.5); LYMPHOCYTES % (AUTO) 24.7 %; MEAN CORPUSCULAR HEMOGLOBIN 30.3 pg (27.0-31.0); MEAN CORPUSCULAR HGB CONC 35.7 g/dL (32.0-36.0); MEAN PLATELET VOLUME 7.5 fL (7.9-10.8); MONOCYTES # (AUTO) 0.6 10^3/uL (0.0-1.0); MONOCYTES % (AUTO) 6.6 %; NEUTROPHILS # (AUTO) 6.1 10^3/uL (1.5-6.6); NEUTROPHILS % (AUTO) 66.1 %; NUCLEATED RED BLOOD CELLS AUTO 0.1 /100WBC; RED BLOOD COUNT 5.28 10^6/uL (4.20-5.40); RED CELL DISTRIBUTION WIDTH 14.5 % (12.0-15.0); UNCORRECTED WHITE BLOOD COUNT 9.2 x10^3/uL; WHITE BLOOD COUNT 9.2 x10^3/uL (4.8-10.8)
[2016-10-07 13:46] LABS: ALBUMIN/GLOBULIN RATIO 1.3 (1.0-2.2); BILIRUBIN,TOTAL 0.5 mg/dL (0.2-1.0); CALCIUM 9.4 mg/dL (8.5-10.3); CREATININE 0.5 mg/dL (0.4-1.0); POTASSIUM 3.7 mmol/L (3.5-5.0); TOTAL PROTEIN 7.2 g/dL (6.7-8.2)
[2016-10-07] MEDS ORDERED: INSULIN REGULAR HUMAN 100 UNIT/1 ML 10 ML MDV IVP STA (13:51)
[2016-10-07] MEDS ORDERED: ONDANSETRON 4 MG/2 ML VIAL IVP STA (14:01)
[2016-10-07] MEDS ORDERED: ONDANSETRON 4 MG/2 ML VIAL ONE (14:02)
[2016-10-07] MEDS ORDERED: INSULIN REGULAR HUMAN 100 UNIT/1 ML 10 ML MDV ONE (14:03)
[2016-10-07 14:26] LABS: BILIRUBIN,URINE NEGATIVE (NEGATIVE)
[2016-10-07 14:30] LABS: HCG UR QUAL NEGATIVE; UA CHARGE (STRIP ONLY) YES; UR CULTURE IF IND NOT INDICATED
[2016-10-07 14:36] VITALS: BP 109/67
== END 2016-10-07 14:49 | disposition home or self-care (01) ==
LOC: ED 12:17
DX: R10.2 Pelvic and perineal pain (principal); H60.333 Swimmer's ear, bilateral; E11.65 Type 2 diabetes mellitus with hyperglycemia; E11.42 Type 2 diabetes mellitus with diabetic polyneuropathy; Z79.4 Long term (current) use of insulin; I10 Essential (primary) hypertension; E78.00 Pure hypercholesterolemia, unspecified; G40.909 Epilepsy, unspecified, not intractable, without status epilepticus; K21.9 Gastro-esophageal reflux disease without esophagitis; Z87.11 Personal history of peptic ulcer disease; M19.90 Unspecified osteoarthritis, unspecified site; F17.200 Nicotine dependence, unspecified, uncomplicated
CPT/HCPCS: 36415; 80053; 81003; 81025; 83690; 85025; 87210; 87220; 96374; 96375; 99284; J1815; 81001; 87086; 87491; 87591

== ENCOUNTER 2016-10-23 15:10 | Outpatient (CLI) | payer MEDICARE, MEDICAID | END 2016-10-23 15:11 | disposition home or self-care (01) | DX: N83.8 Other noninflammatory disorders of ovary, fallopian tube and broad ligament (principal) ==

== ENCOUNTER 2016-10-29 09:29 | Outpatient (CLI) | payer MEDICARE, MEDICAID | END 2016-10-29 09:30 | disposition critical access hospital (66) | LOC: EMS 09:29 | PROVIDERS: ATTEND Surgery | DX: R22.2 Localized swelling, mass and lump, trunk (principal) | CPT/HCPCS: A0425; A0429 ==

== ENCOUNTER 2016-10-29 09:33 | Emergency (ER) | payer MEDICARE, MEDICAID ==
[2016-10-29] MEDS ORDERED: oxyCOD/ACETAMIN 5 MG/325 MG TABLET PO STA (09:56)
[2016-10-29] MEDS ORDERED: oxyCOD/ACETAMIN 5 MG/325 MG TABLET PO ONE (10:00)
[2016-10-29] MEDS ORDERED: cefTRIAXone 1 GM VIAL IM STA (12:18)
--- NOTE | 2016-10-29 12:18 | ED Physician Documentation ---
History of Present Illness - Stated complaint Stated Complaint: R BREAST PX - Chief complaint Chief Complaint: Wound - History obtained from History obtained from: Patient - History of Present Illness Timing: How many days ago (5) - Additonal information Additional information: 36 y/o female with 5 days of pain, redness and swelling to the right breast has been put on antibiotic and has increasing pain and tenderness. Review of Systems Constitutional: reports: Myalgias, Fatigue. denies: Fever Eyes: denies: Decreased vision Ears: denies: Ear pain Nose: denies: Congestion Throat: denies: Sore throat Respiratory: reports: Cough GI: denies: Abdominal Pain, Nausea, Vomiting : denies: Dysuria, Frequency Musculoskeletal: denies: Neck pain, Back pain Neurologic: denies: Generalized weakness, Focal weakness, Numbness PD PAST MEDICAL HISTORY - Past Medical History Past Medical History: Yes Cardiovascular: Hypertension, High cholesterol Respiratory: Sleep apnea Neuro: Headache/migraine, Peripheral neuropathy, Seizure disorder, Other Endocrine/Autoimmune: Type 2 diabetes GI: GERD, Ulcers, Chronic diarrhea 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 HEENT: None Psych: Anxiety, Bipolar disorder, Schizophrenia, ADD/ADHD, Post traumatic stress disorder Musculoskeletal: Osteoarthritis, Osteoporosis Derm: None - Past Surgical History Past Surgical History: Yes General: Cholecystectomy /STRAW 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: Tubal ligation, Other HEENT: Tonsil/Adenoidectomy - Present Medications Home Medications: Ambulatory Orders Medication Instructions Recorded Confirmed Insulin Regular, Human [Humulin R 25 units SQ BID 03/11/16 09/04/16 U-500] acetaZOLAMIDE ER [Diamox ER] 500 mg PO BID 03/11/16 09/04/16 metFORMIN [Glucophage] 1,000 mg PO BIDWM 04/07/16 09/04/16 Atorvastatin [Lipitor] 40 mg ORAL DAILY 07/21/16 09/04/16 Zonisamide 50 mg ORAL BID 07/21/16 09/04/16 Sulfamethoxazole/Trimethoprim 1 each PO BID #14 tablet 08/08/16 09/04/16 [Bactrim Ds Tablet] Ondansetron Odt [Zofran] 4 mg TL Q6H PRN #10 tablet 08/10/16 09/04/16 oxyCODONE [Roxicodone] 5 mg PO Q4-6H PRN #10 tablet 08/10/16 09/04/16 Azithromycin [Zithromax] 250 mg PO DAILY #6 tablet 08/28/16 09/04/16 Nitrofurantoin Monohyd/M-Cryst 100 mg PO BID 5 Days 09/08/16 [Macrobid 100 mg Capsule] Neomycin/Polymyx/Hc Otic Drops 4 drops OT TID #1 bottle 10/07/16 [Cortisporin Ear Susp] oxyCODONE/ACET 5/325 [Percocet 5 1 each PO Q4-6H PRN #20 tablet 10/29/16 mg/325 mg] - Allergies Allergies/Adverse Reactions: Allergies Allergy/AdvReac Type Severity Reaction Status Date / Time Latex, Natural Rubber Allergy Mild Rash Verified 10/07/16 12:27 acetaminophen [From Vicodin] Allergy Hives Verified 10/07/16 12:27 hydrocodone bitartrate * Allergy Hives Verified 10/07/16 12:27 [From Vicodin] Penicillins Allergy Rash Verified 10/07/16 12:27 tramadol Allergy Rash Verified 10/07/16 12:27 adhesive AdvReac Intermediate chemical Verified 10/07/16 12:27 logan haloperidol [From Haldol] AdvReac Unknown Hallucinati Verified 10/07/16 12:27 ons iodine AdvReac Unknown Rash Verified 10/07/16 12:27 latex AdvReac Unknown Respiratory Verified 10/07/16 12:27 lamotrigine [From Lamictal] AdvReac Rash Verified 10/07/16 12:27 varenicline tartrate * AdvReac Hallucinati Verified 10/07/16 12:27 [From Chantix] ons steriods AdvReac Intermediate Unknown Uncoded 09/04/16 05:21 - Social History Does the pt smoke?: Yes Smoking Status: Current every day smoker Does the pt drink ETOH?: Yes Does the pt have substance abuse?: Yes - Immunizations Immunizations are current?: Yes - POLST Patient has POLST: No PD ED PE NORMAL - Vitals Vital signs reviewed: Yes (tachy and hypertensive ) - General General: Alert and oriented X 3, Well developed/nourished, Other (The patient appears to be in pain ) - HEENT HEENT: Atraumatic, PERRL - Neck Neck: Supple, no meningeal sign, No bony TTP - Cardiac Cardiac: RRR, No murmur - Respiratory Respiratory: No respiratory distress, Clear bilaterally, Other (There is a redness, tenderness and a palpable mass to the right breast over the lateral superior quarant. There are deep pores over the skin surounding the nipple. There is no fluctuance and no drainage from the area. ) - Abdomen Abdomen: Soft, Non tender - Back Back: No CVA TTP, No spinal TTP - Derm Derm: Normal color, Warm and dry - Extremities Extremities: No deformity, No edema - Neuro Neuro: No motor deficit, No sensory deficit - Psych Psych: Normal mood, Normal affect Results - Vitals Vitals: Vital Signs - 24 hr 10/29/16 10/29/16 09:37 12:59 Temperature 36.8 C 36.9 C Heart Rate 109 H 95 Respiratory 16 16 Rate Blood Pressure 135/73 H 133/60 H O2 Saturation 94 99 Oxygen O2 Source Room air - Rads (name of study) local ultrasound Radiology: Prelim report reviewed, EMP read indepedently, See rad report PD MEDICAL DECISION MAKING - ED course Complexity details: reviewed results, re-evaluated patient, considered differential, d/w patient, d/w family ED course: 36 y/o female with an atypical presentation is suspected of possible inflamatory breast cancer and the surgeon Dr. Morrissey is consulted in the case and comes to the ED and examines the patient and the ultrasound. He will follow for potential biopsy if this does not respond as a mastitis. Departure - Departure Disposition: 01 Home, Self Care Clinical Impression: Mastitis in female Condition: Stable Instructions: ED Staph Infec Abx Tx Only Follow-Up: Lorna Mulligan MD [Primary Care Provider] - Yamil Morrissey DO [Provider Admit Priv/Credential] - Prescriptions: oxyCODONE/ACET 5/325 [Percocet 5 mg/325 mg] 1 each PO Q4-6H PRN #20 tablet PRN Reason: Pain Discharge Date/Time: 10/29/16 12:59
[2016-10-29] MEDS ORDERED: diphenhydrAMINE 25 MG CAPSULE PO STA (12:19)
[2016-10-29] MEDS ORDERED: LIDOCAINE 1% 2 ML VIAL ONE (12:32)
[2016-10-29] MEDS ORDERED: diphenhydrAMINE 25 MG CAPSULE PO ONE (12:32)
[2016-10-29] MEDS ORDERED: cefTRIAXone 1 GM VIAL ONE (12:32)
[2016-10-29 12:59] VITALS: BP 133/60
--- NOTE | 2016-10-29 13:30 | Ultrasound Report ---
RIGHT BREAST ULTRASOUND: 10/29/2016 CLINICAL INDICATION: Inflamed painful region right upper outer quadrant. TECHNIQUE: Real-time scanning was performed with regional sales representative static images obtained. FINDINGS: Ultrasound of the inflamed painful region identified by the patient was performed. Edema is seen, as well as unremarkable lobules. No drainable abscess or suspicious mass is identified . IMPRESSION: EDEMA IN THE BREAST PARENCHYMA, COMPATIBLE WITH MASTITIS. NO EVIDENCE OF A DRAINABLE COL LECTION OR A SUSPICIOUS MASS. BIRADS CATEGORY 2-BENIGN FINDINGS. JOB #: [id number] EXT JOB #:
== END 2016-10-29 12:59 | disposition home or self-care (01) ==
LOC: EDUNIT# → ED 09:33
DX: N61.0 Mastitis without abscess (principal); E11.42 Type 2 diabetes mellitus with diabetic polyneuropathy; Z79.4 Long term (current) use of insulin; I10 Essential (primary) hypertension; G40.909 Epilepsy, unspecified, not intractable, without status epilepticus; F17.200 Nicotine dependence, unspecified, uncomplicated
CPT/HCPCS: 76642; 96372; 99283; 99284; A9270

== ENCOUNTER 2016-10-31 16:32 | Inpatient (IN) | payer MEDICARE, MEDICAID ==
[2016-10-31] MEDS ORDERED: SODIUM CHLORIDE 0.9% 1,000 ML IV ONE (17:09)
[2016-10-31] MEDS ORDERED: ONDANSETRON 4 MG/2 ML VIAL IVP STA (17:09)
[2016-10-31] MEDS ORDERED: PIPERACILLIN/TAZOBACTAM 3.375 GM in SODIUM CHLORIDE 0.9% MINIBAG 100 ML IV STA (17:09)
[2016-10-31] MEDS ORDERED: CLINDAMYCIN 900 MG/50 ML 50 ML IV ONE ×2 (17:10→18:17)
--- NOTE | 2016-10-31 17:11 | ED Physician Documentation ---
History of Present Illness - Stated complaint Stated Complaint: RT BREAST PX - Chief complaint Chief Complaint: Wound - Additonal information Additional information: hx from pt 36 y/o female poorly controlled DM to ER for right breast mastitis seen by PMD and started on bactrim 5 days ago, then in ER 2 days ago (has sono showing inflammation c/w mastitis, no asbcess and no sign of cancer and also a surgical consultation) back today for worsening sx, nausea, unable to take meds, sleepy, feels ill Review of Systems Constitutional: denies: Fever Cardiac: denies: Chest pain / pressure Respiratory: reports: Dyspnea (hx asthma / COPD) GI: reports: Nausea. denies: Abdominal Pain : reports: Control (tubal ligation). 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: None : Incontinence HEENT: None Psych: Anxiety, Bipolar disorder, Schizophrenia, ADD/ADHD, Post traumatic stress disorder Musculoskeletal: Osteoarthritis, Osteoporosis Derm: None - Past Surgical History Past Surgical History: Yes General: Cholecystectomy /RIGGING MAN: Tubal ligation, Other HEENT: Tonsil/Adenoidectomy - Present Medications Home Medications: Ambulatory Orders Medication Instructions Recorded Confirmed Albuterol Sulf [Ventolin Hfa 2 puffs INH Q4H PRN 10/31/16 10/31/16 Inhaler] Atorvastatin Calcium 40 mg PO DAILY 10/31/16 10/31/16 Baclofen [Baclofen] 10 mg PO QID PRN 10/31/16 10/31/16 Clonazepam [Clonazepam] 1 mg PO DAILY PRN 10/31/16 10/31/16 Esomeprazole Magnesium 40 mg PO QDAC 10/31/16 10/31/16 [Esomeprazole Magnesium] Insulin Aspart (Vial) [NovoLOG 1 - 10 unit SUBQ .SLIDINGSCALE 10/31/16 10/31/16 (VIAL FOR ED USE)] Insulin Regular, Human [Humulin R 25 units SUBQ BID 10/31/16 10/31/16 U-500] Metformin HCl [Glucophage Xr] 500 mg PO BIDWM 10/31/16 10/31/16 Metoclopramide HCl [Metoclopramide 10 mg PO TID PRN 10/31/16 10/31/16 HCl] - Allergies Allergies/Adverse Reactions: Allergies Allergy/AdvReac Type Severity Reaction Status Date / Time Latex, Natural Rubber Allergy Mild Rash Verified 10/07/16 12:27 acetaminophen [From Vicodin] Allergy Hives Verified 10/07/16 12:27 hydrocodone bitartrate * Allergy Hives Verified 10/07/16 12:27 [From Vicodin] Penicillins Allergy Rash Verified 10/07/16 12:27 tramadol Allergy Rash Verified 10/07/16 12:27 adhesive AdvReac Intermediate chemical Verified 10/07/16 12:27 logan haloperidol [From Haldol] AdvReac Unknown Hallucinati Verified 10/07/16 12:27 ons iodine AdvReac Unknown Rash Verified 10/07/16 12:27 latex AdvReac Unknown Respiratory Verified 10/07/16 12:27 lamotrigine [From Lamictal] AdvReac Rash Verified 10/07/16 12:27 varenicline tartrate * AdvReac Hallucinati Verified 10/07/16 12:27 [From Chantix] ons steriods AdvReac Intermediate Unknown Uncoded 09/04/16 05:21 - Social History Does the pt smoke?: Yes Smoking Status: Current every day smoker Does the pt drink ETOH?: Yes Does the pt have substance abuse?: Yes - Immunizations Immunizations are current?: Yes - POLST Patient has POLST: No PD ED PE NORMAL - Vitals Vital signs reviewed: Yes (tachy) - General General: Alert and oriented X 3 - HEENT HEENT: PERRL - Neck Neck: Supple, no meningeal sign - Cardiac Cardiac: RRR - Respiratory Respiratory: No respiratory distress, Other (mild wheezing) - Abdomen Abdomen: Soft, Non tender - Derm Derm: Other (widespread mastitis to R breast with firm induaration (recent sono showed no abscess) erythema was outlined) - Neuro Neuro: Alert and oriented X 3 (droswy but answers) Results - Vitals Vitals: Vital Signs - 24 hr 10/31/16 10/31/16 16:40 18:21 Temperature 37.3 C Heart Rate 113 H 104 H Respiratory 21 20 Rate Blood Pressure 142/73 H 120/67 O2 Saturation 95 90 L Oxygen O2 Source Room air - Labs Labs: Laboratory Tests 10/31/16 10/31/16 10/31/16 17:50 17:50 17:50 WBC 8.9 RBC 5.12 Hgb 15.6 Hct 44.6 MCV 87.1 MCH 30.4 MCHC 34.9 RDW 14.8 Plt Count 258 MPV 7.0 L Neut # 6.2 Lymph # 1.9 [place] # 0.5 Eos # 0.2 Baso # 0.1 Absolute Nucleated RBC 0.00 Nucleated RBCs 0.0 Sodium 132 L Potassium 3.9 Chloride 96 L Carbon Dioxide 27 Anion Gap 9.0 BUN 8 Creatinine 0.5 Estimated GFR (MDRD) 141 Glucose 357 H Lactic Acid 0.8 Calcium 8.9 PD MEDICAL DECISION MAKING - ED course ED course: hx MRSA, was put on bactrim and has failed that, now ill appearing and tachy, gave IV clinda and will admit given neb for her wheezing Departure - Departure Disposition: 66 [facility] DC/Xfer Clinical Impression: Mastitis, Wheezing Condition: Fair
[2016-10-31 18:04] LABS: BASOPHILS # (AUTO) 0.1 10^3/uL (0.0-0.1); BASOPHILS % (AUTO) 1.1 %; EOSINOPHILS # (AUTO) 0.2 10^3/uL (0.0-0.7); EOSINOPHILS % (AUTO) 2.1 %; HCT - HEMATOCRIT 44.6 % (37.0-47.0); HGB - HEMOGLOBIN 15.6 g/dL (12.0-16.0); LYMPHOCYTES # (AUTO) 1.9 10^3/uL (1.5-3.5); LYMPHOCYTES % (AUTO) 21.1 %; MEAN CORPUSCULAR HEMOGLOBIN 30.4 pg (27.0-31.0); MEAN CORPUSCULAR HGB CONC 34.9 g/dL (32.0-36.0); MEAN CORPUSCULAR VOLUME 87.1 fL (81.0-99.0); MONOCYTES # (AUTO) 0.5 10^3/uL (0.0-1.0); MONOCYTES % (AUTO) 6.1 %; NEUTROPHILS # (AUTO) 6.2 10^3/uL (1.5-6.6); NEUTROPHILS % (AUTO) 69.6 %; RED BLOOD COUNT 5.12 10^6/uL (4.20-5.40); RED CELL DISTRIBUTION WIDTH 14.8 % (12.0-15.0); UNCORRECTED WHITE BLOOD COUNT 8.9 x10^3/uL; WHITE BLOOD COUNT 8.9 x10^3/uL (4.8-10.8)
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
[2016-10-31 18:11] LABS: CALCIUM 8.9 mg/dL (8.5-10.3); CREATININE 0.5 mg/dL (0.4-1.0); POTASSIUM 3.9 mmol/L (3.5-5.0)
[2016-10-31] MEDS ORDERED: ONDANSETRON 4 MG/2 ML VIAL ONE (18:17)
[2016-10-31] MEDS ORDERED: ACETAMINOPHEN 325 MG TABLET PO PRN (18:30)
[2016-10-31] MEDS ORDERED: TEMAZEPAM 15 MG CAPSULE PO PRN (18:30)
[2016-10-31] MEDS ORDERED: HYDROcod/ACETAM 5/325 MG TABLET PO PRN (18:30)
[2016-10-31] MEDS ORDERED: ALBUTEROL NEB 2.5 MG/3 ML INH STA (18:31)
[2016-10-31] MEDS ORDERED: BACLOFEN 10 MG TABLET PO PRN (18:35)
[2016-10-31] MEDS ORDERED: ALBUTEROL NEB 2.5 MG/3 ML INH ONE (18:35)
[2016-10-31] MEDS ORDERED: clonazePAM 0.5 MG TABLET PO PRN (18:35)
[2016-10-31] MEDS ORDERED: METOCLOPRAMIDE 10 MG TABLET PO PRN (18:35)
[2016-10-31] MEDS ORDERED: PANTOPRAZOLE 40 MG TABLET PO SCH (19:00)
[2016-10-31] MEDS ORDERED: ALBUTEROL NEB 2.5 MG/3 ML INH PRN (19:07)
[2016-10-31 19:14] LABS: HEMOGLOBIN A1C 1.78 g/dL
[2016-10-31] MEDS: oxyCOD/ACETAMIN 5 MG/325 MG TABLET PO PRN (20:51)
[2016-10-31] MEDS: PANTOPRAZOLE 40 MG TABLET PO SCH (20:51)
[2016-10-31] MEDS: INSULIN REGULAR HUMAN 100 UNIT/1 ML 10 ML MDV SUBQ SCH (20:52)
[2016-10-31] MEDS: ATORVASTATIN 40 MG TABLET PO SCH (20:52)
[2016-10-31] MEDS: INSULIN ASPART 300 UNIT/3 ML PEN SUBQ SCH (20:53)
[2016-10-31] MEDS: CLINDAMYCIN 600 MG/50 ML 50 ML IV SCH (22:00)
[2016-10-31] MEDS: SODIUM CHLORIDE FLUSH 0.9% 10 ML SYRINGE IVP SCH (22:01)
[2016-11-01] MEDS: oxyCOD/ACETAMIN 5 MG/325 MG TABLET PO PRN ×6 (01:08→22:58)
[2016-11-01] MEDS: CLINDAMYCIN 600 MG/50 ML 50 ML IV SCH ×3 (05:30→22:48)
[2016-11-01] MEDS: SODIUM CHLORIDE FLUSH 0.9% 10 ML SYRINGE IVP PRN (06:23)
[2016-11-01] MEDS: SODIUM CHLORIDE FLUSH 0.9% 10 ML SYRINGE IVP SCH ×4 (06:23→21:27)
[2016-11-01] MEDS: PANTOPRAZOLE 40 MG TABLET PO SCH ×2 (06:23→17:24)
[2016-11-01] MEDS: INSULIN ASPART 300 UNIT/3 ML PEN SUBQ SCH ×4 (08:15→21:26)
[2016-11-01] MEDS: metFORMIN 500 MG TABLET PO SCH ×2 (08:35→17:25)
[2016-11-01] MEDS: INSULIN REGULAR HUMAN 100 UNIT/1 ML 10 ML MDV SUBQ SCH ×2 (08:36→21:26)
[2016-11-01] MEDS: POLYETHYLENE GLYCOL 3350 17 GM PACKET PO SCH (08:36)
[2016-11-01] MEDS: FLUCONAZOLE 100 MG TABLET PO SCH (08:36)
[2016-11-01] MEDS ORDERED: fentaNYL 100 MCG/2 ML VIAL IVP PRN (09:07)
[2016-11-01] MEDS ORDERED: diphenhydrAMINE 25 MG CAPSULE PO PRN (09:08)
[2016-11-01] MEDS: MORPHINE 2 MG/ML SYRINGE IVP PRN ×5 (09:30→22:48)
[2016-11-01] MEDS: CEFEPIME 2 GM in SODIUM CHLORIDE 0.9% MINIBAG 100 ML IV SCH ×2 (10:39→22:48)
[2016-11-01] MEDS ORDERED: DOCUSATE SODIUM 250 MG CAPSULE PO SCH (11:00)
[2016-11-01] MEDS ORDERED: SENNA 8.6 MG TABLET PO SCH (11:00)
--- NOTE | 2016-11-01 14:33 | PROVIDER PROGRESS NOTE ---
Assessment/Plan - Problem List (1) Mastitis Assessment/Plan: Continues to have pain on exam. Afebrile. No new complaints. Plan Continue ABX. Add Cefepime. 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 Will continue to monitor and adjust insulins as needed (3) MARILYN (obstructive sleep apnea) Assessment/Plan: Continue home CPAP (4) Chronic pain Qualifiers: Chronic pain type: due to trauma Qualified Code(s): G89.21 - Chronic pain due to trauma Assessment/Plan: PT with complaints of 10/10 pain although does not look uncomfortable. Will continue treating with current medications. PRN MS added for breakthrough pain due to mastitis - Current Meds Current Meds: Current Medications Generic Name Dose Route Start Last Admin Trade Name Charmaine PRN Reason Stop Dose Admin Acetaminophen 650 mg 10/31/16 18:30 11/01/16 04:34 Tylenol PO 650 mg Q4HR PRN Administration Pain 1 to 4 Atorvastatin Calcium 40 mg 10/31/16 21:00 10/31/16 20:52 Lipitor PO Not Given QPM DEYSI Diphenhydramine HCl 25 mg 11/01/16 09:08 11/01/16 09:31 Benadryl PO 25 mg Q6H PRN Administration Allergy Symptoms Fluconazole 100 mg 11/01/16 09:00 11/01/16 08:36 Diflucan PO 100 mg DAILY DEYSI Administration Clindamycin Phosphate 50 mls @ 100 mls/hr 10/31/16 22:00 11/01/16 05:30 Cleocin 600 Mg/50 Ml IV 100 mls/hr Q8HR DEYSI Administration Cefepime HCl 2 gm/ Sodium 100 mls @ 200 mls/hr 11/01/16 10:00 11/01/16 10:39 Chloride IV 200 mls/hr Q12H DEYSI Administration Insulin Aspart 3 - 11 unit 10/31/16 21:00 11/01/16 11:58 Novolog SUBQ 7 unit 0800,1200,1700,2100 DEYSI Administration Protocol Insulin Human Regular 25 unit 10/31/16 21:00 11/01/16 08:36 Novolin R SUBQ 25 unit BID DEYSI Administration Metformin HCl 500 mg 11/01/16 08:00 11/01/16 08:35 Glucophage PO 500 mg BIDWM DEYSI Administration Morphine Sulfate 1 mg 11/01/16 09:13 11/01/16 13:37 Morphine IVP 1 mg Q2HR PRN Administration PAIN Oxycodone/Acetaminophen 1 tab 10/31/16 19:41 11/01/16 12:39 Percocet 5 Mg/325 Mg PO 1 tab Q4HR PRN Administration PAIN Pantoprazole Sodium 40 mg 10/31/16 20:00 11/01/16 06:23 Protonix PO 40 mg BIDAC DEYSI Administration Polyethylene Glycol 17 gm 11/01/16 09:00 11/01/16 08:36 Miralax PO 17 gm DAILY DEYSI Administration Sodium Chloride 10 ml 10/31/16 18:30 11/01/16 06:23 Normal Saline Flush 0.9% IVP 10 ml PRN PRN Administration NEEDED PER PROVIDER ORDERS Sodium Chloride 10 ml 10/31/16 22:00 11/01/16 13:37 Normal Saline Flush 0.9% IVP 10 ml Q8HR DEYSI Administration - Lab Result Lab results reviewed: Yes Fish Bone Diagrams: 10/31/16 17:50 10/31/16 17:50 - Additional Planning Condition/Complexity: Stable My Orders: My Active Orders 10/31/16 18:35 Baclofen [Lioresal] 10 mg PO QID PRN Metoclopramide [Reglan] 10 mg PO TID PRN clonazePAM [KlonoPIN] 1 mg PO DAILY PRN 10/31/16 18:36 Blood Glucose Checks - Eating [RC] 0800,1200,1700,2100 Initiate Hypoglycemia Protocol [RC] .protocol 10/31/16 19:07 Albuterol 2.5 mg INH Q4H PRN 10/31/16 20:00 Pantoprazole [Protonix] 40 mg PO BIDAC 10/31/16 21:00 Atorvastatin [Lipitor] 40 mg PO QPM Insulin Aspart [NovoLOG] 3 - 11 unit SUBQ 0800,1200,1700,2100 Insulin Regular Human [NovoLIN R] 25 unit SUBQ BID 10/31/16 22:00 Clindamycin 600 mg/50 ml [Cleocin 600 mg/50 ml] 50 ml IV Q8HR 11/01/16 02:28 RT [Home CPAP/BiPAP] [RC] .ONCE 11/01/16 08:00 metFORMIN [Glucophage] 500 mg PO BIDWM 11/01/16 09:00 Fluconazole [Diflucan] 100 mg PO DAILY 11/01/16 09:08 diphenhydrAMINE [Benadryl] 25 mg PO Q6H PRN 11/01/16 09:13 Morphine Inj [Morphine] 1 mg IVP Q2HR PRN 11/01/16 10:00 Cefepime 2 gm Sodium Chloride 0.9% Minibag [Normal Saline 0.9% Minibag] 100 ml IV Q12H Plan Discussed with:: Patient, Family Time Spent: 15-30 minutes Subjective - Subjective Patient Reports: Other (PT continues to complain of pain. She wanted to leave AMA due to anxiety and desire to smoke. She is willing to stay for another 24 hours of IV ABX) Nursing Reports: Pain Objective Vital Signs: Vital Signs - 24 hr 10/31/16 10/31/16 10/31/16 18:44 19:14 19:30 Temperature 37.1 C Heart Rate 100 103 H Heart Rate [ 104 H Monitoring electrodes] Respiratory 22 18 16 Rate Blood Pressure 98/49 L Blood Pressure 115/77 [Left Brachial artery] Blood Pressure [Right Brachial artery] O2 Saturation 90 L 95 11/01/16 11/01/16 01:16 07:51 Temperature 37.0 C 36.8 C Heart Rate Heart Rate [ 89 86 Monitoring electrodes] Respiratory 18 16 Rate Blood Pressure Blood Pressure [Left Brachial artery] Blood Pressure 110/69 115/79 [Right Brachial artery] O2 Saturation 94 96 Oxygen O2 Source Room air I&O (Last 24 Hrs): Intake and Output Totals x24h 10/30/16 10/31/16 11/01/16 23:59 23:59 23:59 Intake Total 1114 1675 Balance 1114 1675 General: Alert, Oriented x3 HEENT: PERRLA, EOMI Neck: No JVD Neuro: Alert, CN 2-12 Grossly Intact Cardiovascular: Regular rate, Normal S1 Respiratory: Chest non-tender, No respiratory distress Skin: No rashes (Erythemia on right breast has increased. Mass has softened) - Results Results: Laboratory Results WBC 8.9 x10^3/uL (4.8-10.8) 10/31/16 17:50 RBC 5.12 10^6/uL (4.20-5.40) 10/31/16 17:50 Hgb 15.6 g/dL (12.0-16.0) 10/31/16 17:50 Hct 44.6 % (37.0-47.0) 10/31/16 17:50 MCV 87.1 fL (81.0-99.0) 10/31/16 17:50 MCH 30.4 pg (27.0-31.0) 10/31/16 17:50 MCHC 34.9 g/dL (32.0-36.0) 10/31/16 17:50 RDW 14.8 % (12.0-15.0) 10/31/16 17:50 Plt Count 258 10^3/uL (130-450) 10/31/16 17:50 MPV 7.0 fL (7.9-10.8) L 10/31/16 17:50 Neut # 6.2 10^3/uL (1.5-6.6) 10/31/16 17:50 Lymph # 1.9 10^3/uL (1.5-3.5) 10/31/16 17:50 Real # 0.5 10^3/uL (0.0-1.0) 10/31/16 17:50 Eos # 0.2 10^3/uL (0.0-0.7) 10/31/16 17:50 Baso # 0.1 10^3/uL (0.0-0.1) 10/31/16 17:50 Absolute Nucleated RBC 0.00 x10^3/uL 10/31/16 17:50 Nucleated RBCs 0.0 /100WBC 10/31/16 17:50 Sodium 132 mmol/L (135-145) L 10/31/16 17:50 Potassium 3.9 mmol/L (3.5-5.0) 10/31/16 17:50 Chloride 96 mmol/L (101-111) L 10/31/16 17:50 Carbon Dioxide 27 mmol/L (21-32) 10/31/16 17:50 Anion Gap 9.0 (6-13) 10/31/16 17:50 BUN 8 mg/dL (6-20) 10/31/16 17:50 Creatinine 0.5 mg/dL (0.4-1.0) 10/31/16 17:50 Estimated GFR (MDRD) 141 (>89) 10/31/16 17:50 Glucose 357 mg/dL (70-100) H 10/31/16 17:50 POC Whole Bld Glucose 242 mg/dL (70 - 100) H 11/01/16 11:07 Glycated Hemoglobin 12.1 % (4.6-6.2) H 10/31/16 17:40 Estim Average Glucose 301 (70-100) H 10/31/16 17:40 Lactic Acid 0.8 mmol/L (0.5-2.2) 10/31/16 17:50 Calcium 8.9 mg/dL (8.5-10.3) 10/31/16 17:50
[2016-11-01] MEDS ORDERED: LORazepam 0.5 MG TABLET PO PRN (14:36)
[2016-11-01] MEDS: ONDANSETRON ODT 4 MG TABLET TL PRN (19:43)
[2016-11-01] MEDS: ATORVASTATIN 40 MG TABLET PO SCH (20:38)
[2016-11-02] MEDS: MORPHINE 2 MG/ML SYRINGE IVP PRN ×4 (01:56→09:07)
[2016-11-02] MEDS: SODIUM CHLORIDE FLUSH 0.9% 10 ML SYRINGE IVP PRN ×5 (01:57→06:56)
[2016-11-02] MEDS: PANTOPRAZOLE 40 MG TABLET PO SCH (06:13)
[2016-11-02] MEDS: oxyCOD/ACETAMIN 5 MG/325 MG TABLET PO PRN ×2 (06:13→11:24)
[2016-11-02] MEDS: CLINDAMYCIN 600 MG/50 ML 50 ML IV SCH (06:14)
[2016-11-02] MEDS ORDERED: SACCHAROMYCES BOULARDII 250 MG CAPSULE PO SCH (08:00)
[2016-11-02] MEDS: INSULIN ASPART 300 UNIT/3 ML PEN SUBQ SCH (08:16)
[2016-11-02] MEDS ORDERED: SENNA 8.6 MG TABLET PO SCH (09:00)
[2016-11-02] MEDS ORDERED: DOCUSATE SODIUM 250 MG CAPSULE PO SCH (09:00)
[2016-11-02] MEDS: FLUCONAZOLE 100 MG TABLET PO SCH (09:06)
[2016-11-02] MEDS: metFORMIN 500 MG TABLET PO SCH (09:06)
[2016-11-02] MEDS: CEFEPIME 2 GM in SODIUM CHLORIDE 0.9% MINIBAG 100 ML IV SCH (09:07)
[2016-11-02] MEDS: INSULIN REGULAR HUMAN 100 UNIT/1 ML 10 ML MDV SUBQ SCH (09:13)
[2016-11-02] MEDS: POLYETHYLENE GLYCOL 3350 17 GM PACKET PO SCH (09:13)
[2016-11-02] MEDS: ONDANSETRON ODT 4 MG TABLET TL PRN (09:20)
--- NOTE | 2016-11-02 09:20 | PROVIDER PROGRESS NOTE ---
Assessment/Plan - Problem List (1) Mastitis Assessment/Plan: Remains painful with large mass. Improved on exam. Decreased erythema. Plan: Continue IV antibiotics. PT may be willing to stay 1 more day which would be ideal for therapy. If not we will discharge this afternoon on PO antibiotics and encourage close followup (2) Diabetes mellitus out of control Qualifiers: Diabetes mellitus type: type 2 Diabetes mellitus complication status: with neurologic complications Diabetes mellitus penitentiary insulin use: with penitentiary use Qualified Code(s): E11.65 - Type 2 diabetes mellitus with hyperglycemia Assessment/Plan: Poor control. HgA1c is 12.1 corresponding to average BG level of 301. Elevated BG levels during admission. Plan continue current therapy. Will try to improve over all control without drop of BG level to fast. Close followup after discharge. Diet, exercise and wt loss will be ideal for recovery (3) MARILYN (obstructive sleep apnea) Assessment/Plan: Wearing CPAP at home. PT has her home equipment here and is using nightly. (4) Chronic pain Qualifiers: Chronic pain type: due to trauma Qualified Code(s): G89.21 - Chronic pain due to trauma - Current Meds Current Meds: Current Medications Generic Name Dose Route Start Last Admin Trade Name Freq PRN Reason Stop Dose Admin Acetaminophen 650 mg 10/31/16 18:30 11/01/16 04:34 Tylenol PO 650 mg Q4HR PRN Administration Pain 1 to 4 Atorvastatin Calcium 40 mg 10/31/16 21:00 11/01/16 20:38 Lipitor PO Not Given QPM DEYSI Baclofen 10 mg 10/31/16 18:35 11/01/16 18:30 Lioresal PO 10 mg QID PRN Administration Spasms Diphenhydramine HCl 25 mg 11/01/16 09:08 11/01/16 09:31 Benadryl PO 25 mg Q6H PRN Administration Allergy Symptoms Docusate Sodium 250 - 500 mg 11/02/16 09:00 11/02/16 09:07 Colace 250mg Capsule PO 250 mg DAILY DEYSI Administration Fluconazole 100 mg 11/01/16 09:00 11/02/16 09:06 Diflucan PO 100 mg DAILY DEYSI Administration Clindamycin Phosphate 50 mls @ 100 mls/hr 10/31/16 22:00 11/02/16 06:14 Cleocin 600 Mg/50 Ml IV 100 mls/hr Q8HR DEYSI Administration Cefepime HCl 2 gm/ Sodium 100 mls @ 200 mls/hr 11/01/16 10:00 11/02/16 09:07 Chloride IV 200 mls/hr Q12H DEYSI Administration Insulin Aspart 3 - 11 unit 10/31/16 21:00 11/02/16 08:16 Novolog SUBQ 5 unit 0800,1200,1700,2100 DEYSI Administration Protocol Insulin Human Regular 25 unit 10/31/16 21:00 11/02/16 09:13 Novolin R SUBQ 25 unit BID DEYSI Administration Lorazepam 0.5 mg 11/01/16 14:36 11/01/16 14:41 Ativan PO 0.5 mg Q4H PRN Administration Anxiety Metformin HCl 500 mg 11/01/16 08:00 11/02/16 09:06 Glucophage PO 500 mg BIDWM DEYSI Administration Metoclopramide HCl 10 mg 10/31/16 18:35 11/01/16 23:17 Reglan PO 10 mg TID PRN Administration Nausea / Vomiting Morphine Sulfate 1 mg 11/01/16 09:13 11/02/16 09:07 Morphine IVP 1 mg Q2HR PRN Administration PAIN Ondansetron HCl 4 mg 10/31/16 18:30 11/01/16 19:43 Zofran Odt TL 4 mg Q6HR PRN Administration Nausea / Vomiting Oxycodone/Acetaminophen 1 tab 10/31/16 19:41 11/02/16 06:13 Percocet 5 Mg/325 Mg PO 1 tab Q4HR PRN Administration PAIN Pantoprazole Sodium 40 mg 10/31/16 20:00 11/02/16 06:13 Protonix PO 40 mg BIDAC DEYSI Administration Polyethylene Glycol 17 gm 11/01/16 09:00 11/02/16 09:13 Miralax PO 17 gm DAILY DEYSI Administration Saccharomyces Boulardii 500 mg 11/02/16 08:00 11/02/16 09:06 Florastor PO 500 mg BIDWM DEYSI Administration Senna 8.6 - 17.2 mg 11/02/16 09:00 11/02/16 09:06 Senokot PO 17.2 mg DAILY DEYSI Administration Sodium Chloride 10 ml 10/31/16 18:30 11/02/16 06:56 Normal Saline Flush 0.9% IVP 10 ml PRN PRN Administration NEEDED PER PROVIDER ORDERS Sodium Chloride 10 ml 10/31/16 22:00 11/01/16 21:27 Normal Saline Flush 0.9% IVP 10 ml Q8HR DEYSI Administration Temazepam 15 mg 10/31/16 18:30 11/01/16 23:58 Restoril PO 15 mg QPM PRN Administration Insomnia - Lab Result Fish Bone Diagrams: 10/31/16 17:50 10/31/16 17:50 - Additional Planning My Orders: My Active Orders 11/01/16 09:00 Fluconazole [Diflucan] 100 mg PO DAILY 11/01/16 09:08 diphenhydrAMINE [Benadryl] 25 mg PO Q6H PRN 11/01/16 09:13 Morphine Inj [Morphine] 1 mg IVP Q2HR PRN 11/01/16 10:00 Cefepime 2 gm Sodium Chloride 0.9% Minibag [Normal Saline 0.9% Minibag] 100 ml IV Q12H 11/01/16 14:36 LORazepam [Ativan] 0.5 mg PO Q4H PRN 11/02/16 08:00 Saccharomyces Boulardii [Florastor] 500 mg PO BIDWM 11/02/16 09:00 Docusate Sodium 250Mg Capsule [Colace 250Mg Capsule] 250 - 500 mg PO DAILY Senna [Senokot] 8.6 - 17.2 mg PO DAILY Objective Vital Signs: Vital Signs - 24 hr 11/01/16 11/02/16 16:15 00:40 Temperature 36.9 C 36.4 C L Heart Rate [ 74 77 Radial] Respiratory 16 18 Rate Blood Pressure 129/80 [Right Brachial artery] Blood Pressure 147/78 H [Right Radial artery] O2 Saturation 95 97 Oxygen O2 Source Room air I&O (Last 24 Hrs): Intake and Output Totals x24h 10/31/16 11/01/16 11/02/16 23:59 23:59 23:59 Intake Total 1114 1843 1320 Balance 1114 1843 1320 - Results Results: Laboratory Results WBC 8.9 x10^3/uL (4.8-10.8) 10/31/16 17:50 RBC 5.12 10^6/uL (4.20-5.40) 10/31/16 17:50 Hgb 15.6 g/dL (12.0-16.0) 10/31/16 17:50 Hct 44.6 % (37.0-47.0) 10/31/16 17:50 MCV 87.1 fL (81.0-99.0) 10/31/16 17:50 MCH 30.4 pg (27.0-31.0) 10/31/16 17:50 MCHC 34.9 g/dL (32.0-36.0) 10/31/16 17:50 RDW 14.8 % (12.0-15.0) 10/31/16 17:50 Plt Count 258 10^3/uL (130-450) 10/31/16 17:50 MPV 7.0 fL (7.9-10.8) L 10/31/16 17:50 Neut # 6.2 10^3/uL (1.5-6.6) 10/31/16 17:50 Lymph # 1.9 10^3/uL (1.5-3.5) 10/31/16 17:50 Mcpherson # 0.5 10^3/uL (0.0-1.0) 10/31/16 17:50 Eos # 0.2 10^3/uL (0.0-0.7) 10/31/16 17:50 Baso # 0.1 10^3/uL (0.0-0.1) 10/31/16 17:50 Absolute Nucleated RBC 0.00 x10^3/uL 10/31/16 17:50 Nucleated RBCs 0.0 /100WBC 10/31/16 17:50 Sodium 132 mmol/L (135-145) L 10/31/16 17:50 Potassium 3.9 mmol/L (3.5-5.0) 10/31/16 17:50 Chloride 96 mmol/L (101-111) L 10/31/16 17:50 Carbon Dioxide 27 mmol/L (21-32) 10/31/16 17:50 Anion Gap 9.0 (6-13) 10/31/16 17:50 BUN 8 mg/dL (6-20) 10/31/16 17:50 Creatinine 0.5 mg/dL (0.4-1.0) 10/31/16 17:50 Estimated GFR (MDRD) 141 (>89) 10/31/16 17:50 Glucose 357 mg/dL (70-100) H 10/31/16 17:50 POC Whole Bld Glucose 268 mg/dL (70 - 100) H 11/01/16 20:36 Glycated Hemoglobin 12.1 % (4.6-6.2) H 10/31/16 17:40 Estim Average Glucose 301 (70-100) H 10/31/16 17:40 Lactic Acid 0.8 mmol/L (0.5-2.2) 10/31/16 17:50 Calcium 8.9 mg/dL (8.5-10.3) 10/31/16 17:50
[2016-11-02 09:47] VITALS: BP 113/74
--- NOTE | 2016-11-02 10:57 | Discharge Plan ---
Discharge Plan Disposition: 01 Home, Self Care Condition: Good Prescriptions: Clindamycin [Cleocin] 450 mg PO Q8H #126 capsule traMADol [Ultram] 50 mg PO Q4-6H #20 tablet Cefpodoxime Proxetil [Vantin] 400 mg PO BID #56 tablet Diet: Diabetic Activity Restrictions: No Restrictions Shower Restrictions: No Driving Restrictions: No Weight Bearing: Full Weight Instruction Topics: Diabetes Snf Complications, Diabetes Type 2 Coping, ED Breast Infec No Smoking: If you smoke, Please STOP! Call for help.
--- NOTE | 2016-11-02 13:16 | DISCHARGE SUMMARY ---
DATE OF ADMISSION: 10/31/2016 DATE OF DISCHARGE: 11/02/2016 ADMITTING DIAGNOSES 1. Mastitis - right-sided, present on admission. 2. Diabetes mellitus - uncontrolled. 3. Obstructive sleep apnea on CPAP at home. 4. Chronic pain. DISCHARGE DIAGNOSES 1. Mastitis: a. Right-sided. b. Responded to IV antibiotics. c. Improved on exam. 2. Diabetes mellitus - uncontrolled: a. Insulin-dependent at home. b. Hemoglobin A1c of 12.1 on admission. She is equivalent to have a blood glucose average of 301. c. Elevated blood glucose levels during hospitalization. 3. Obstructive sleep apnea on CPAP. 4. Chronic pain. BRIEF HISTORY OF PRESENT ILLNESS: For specifics, please see admission. This is a patient who had noted pain and swelling in her right breast 5 days prior to admission. She had no drainage. She was seen by Surgery in the outpatient setting with concerns for cancer, but determined it was infection. She was started on Cipro, but inflammation and pain increased. The patient reported to the emergency department for further evaluation. HOSPITAL COURSE: The patient was admitted to the medical floor for IV antibiotics. She was started on cefepime and clindamycin. She tolerated these medications without adverse drug reactions. Her mastitis improved significantly over the course of her stay. We anticipated her staying an additional 24 hours for IV antibiotics; unfortunately, she was unable to maintain IV access. Multiple attempts were made at reinitiating IV. The patient declined further attempts. We discharged her home on oral antibiotic therapy. PHYSICAL EXAMINATION ON DISCHARGE GENERAL: Appears much older than stated age, chronically ill-appearing female. HEENT: Poor impulse, atraumatic. No [place] dentition. NECK: No JVD. CHEST: Clear to auscultation. CARDIOVASCULAR: Regular rate and rhythm. BREASTS: Right breast with decreased erythema, and mass remains tender to palpation. EXTREMITIES: Without edema. ABDOMEN: Obese and benign. LABORATORY TEST ON ADMISSION: White blood cell 8.9, hemoglobin 15.6, hematocrit 44.6, platelets 258, sodium 132, potassium 3.9, chloride 96, BUN 8, creatinine 0.5, glucose 357, glycosylated hemoglobin 12.1, estimated average glucose 301, lactic acid was 0.8, and calcium 8.9. DISPOSITION: She will be discharged home. Recommend followup with her primary care provider next week. DISCHARGE MEDICATIONS Include: 1. Vantin 400 mg b.i.d. for 14 days. 2. Clindamycin 450 mg q.8h. for 14 days. 3. Lipitor 40 mg at bedtime. 4. Baclofen 10 mg q.i.d. as needed. 5. Clonazepam 1 mg daily as needed. 6. Metformin 500 mg b.i.d. 7. Insulin Humalog 25 units subcutaneous b.i.d. 8. Insulin Aspart adjusted per sliding scale. Thank you for the opportunity to participate in the care of the patient and all of her medical needs. Greater then 30 minutes was spent discharging patient including education and planning. JOB #: [id number] EXT JOB #:[id number] NADINE
== END 2016-11-02 11:24 | disposition home or self-care (01) | DRG 600 ==
LOC: ED 16:32 → MS 18:30
PROVIDERS: ADMIT Physician Assistant; ATTEND Physician Assistant
DX: N61.0 Mastitis without abscess (principal); Z68.41 Body mass index [BMI] 40.0-44.9, adult; R06.2 Wheezing; R21 Rash and other nonspecific skin eruption; R11.0 Nausea; E11.42 Type 2 diabetes mellitus with diabetic polyneuropathy; F41.9 Anxiety disorder, unspecified; F31.9 Bipolar disorder, unspecified; F43.10 Post-traumatic stress disorder, unspecified; F20.9 Schizophrenia, unspecified; K21.9 Gastro-esophageal reflux disease without esophagitis; E78.00 Pure hypercholesterolemia, unspecified; I10 Essential (primary) hypertension; F17.200 Nicotine dependence, unspecified, uncomplicated; Z79.84 Long term (current) use of oral hypoglycemic drugs; Z90.49 Acquired absence of other specified parts of digestive tract; Z79.4 Long term (current) use of insulin; E11.65 Type 2 diabetes mellitus with hyperglycemia; G47.33 Obstructive sleep apnea (adult) (pediatric); G89.29 Other chronic pain; E66.01 Morbid (severe) obesity due to excess calories; G93.2 Benign intracranial hypertension; Z88.0 Allergy status to penicillin
CPT/HCPCS: 36415; 80048; 83036; 83605; 85025; 87040; 94640; 96365; 96375; 99283; 99284

== ENCOUNTER 2016-11-08 17:37 | Emergency (ER) | payer MEDICARE, MEDICAID ==
[2016-11-08 17:49] VITALS: BP 120/75
[2016-11-08] MEDS ORDERED: diphenhydrAMINE INJ 50 MG/ML VIAL IM STA (18:32)
[2016-11-08] MEDS ORDERED: KETOROLAC 60 MG/2 ML VIAL ONE (18:36)
[2016-11-08] MEDS ORDERED: KETOROLAC 60 MG/2 ML VIAL IM STA (18:36)
[2016-11-08] MEDS ORDERED: diphenhydrAMINE INJ 50 MG/ML VIAL ONE (18:36)
--- NOTE | 2016-11-08 18:39 | ED Physician Documentation ---
History of Present Illness - Stated complaint Stated Complaint: ALLERGIC REACTION - Chief complaint Chief Complaint: Allergic Rx - History obtained from History obtained from: Patient - History of Present Illness Timing: Other (36-year-old woman with recent admission for mastitis, clinically improving. When she initially went to the pharmacy to fill the Cefpodoxime they didn't have enough and today filled a second prescription which apparently is from a different photovoltaic fabrication technician because the pill shaped and color are different. Shortly after taking the new formulation she became diffusely red and itchy but without wheezing. She does have a headache but that is not uncommon for her.) Review of Systems Constitutional: denies: Fever, Chills Ears: denies: Loss of hearing, Ear pain Nose: denies: Rhinorrhea / runny nose, Congestion Respiratory: denies: Dyspnea, Cough PD PAST MEDICAL HISTORY - Past Medical History Cardiovascular: Hypertension, High cholesterol Respiratory: Asthma, Sleep apnea Neuro: Headache/migraine, Peripheral neuropathy, Seizure disorder Endocrine/Autoimmune: Type 2 diabetes GI: GERD, Ulcers, Chronic diarrhea, Other RECEIVABLE MANAGER: None : Incontinence HEENT: None Psych: Anxiety, Bipolar disorder, Schizophrenia, ADD/ADHD, Post traumatic stress disorder, Obsessive compulsive disorder Musculoskeletal: Osteoarthritis, Osteoporosis Derm: Other drug resistant infections - Past Surgical History Past Surgical History: Yes General: Cholecystectomy /RECEIVABLE MANAGER: Tubal ligation, Other HEENT: Tonsil/Adenoidectomy - Present Medications Home Medications: Ambulatory Orders Medication Instructions Recorded Confirmed Albuterol Sulf [Ventolin Hfa 2 puffs INH Q4H PRN 10/31/16 10/31/16 Inhaler] Atorvastatin Calcium 40 mg PO DAILY 10/31/16 10/31/16 Baclofen 10 mg PO QID PRN 10/31/16 10/31/16 Clonazepam 1 mg PO DAILY PRN 10/31/16 10/31/16 Esomeprazole Magnesium 40 mg PO QDAC 10/31/16 10/31/16 Insulin Aspart (Vial) [NovoLOG 1 - 10 unit SUBQ .SLIDINGSCALE 10/31/16 10/31/16 (VIAL FOR ED USE)] Insulin Regular, Human [Humulin R 25 units SUBQ BID 10/31/16 10/31/16 U-500] Metformin HCl [Glucophage Xr] 500 mg PO BIDWM 10/31/16 10/31/16 Metoclopramide HCl 10 mg PO TID PRN 10/31/16 10/31/16 Cefpodoxime Proxetil [Vantin] 400 mg PO BID #56 tablet 11/02/16 Clindamycin [Cleocin] 450 mg PO Q8H #126 capsule 11/02/16 oxyCODONE/ACET 5/325 [Percocet 5 1 each PO Q8H #10 tablet 11/02/16 mg/325 mg] traMADol [Ultram] 50 mg PO Q4-6H #20 tablet 11/02/16 Cephalexin [Keflex] 500 mg PO QID 7 Days 11/08/16 diphenhydrAMINE [Benadryl] 25 mg PO Q4H PRN #20 capsule 11/08/16 - Allergies Allergies/Adverse Reactions: Allergies Allergy/AdvReac Type Severity Reaction Status Date / Time Latex, Natural Rubber Allergy Mild Rash Verified 10/07/16 12:27 acetaminophen [From Vicodin] Allergy Hives Verified 10/07/16 12:27 hydrocodone bitartrate * Allergy Hives Verified 10/07/16 12:27 [From Vicodin] Penicillins Allergy Rash Verified 10/07/16 12:27 tramadol Allergy Rash Verified 10/07/16 12:27 adhesive AdvReac Intermediate chemical Verified 10/07/16 12:27 logan haloperidol [From Haldol] AdvReac Unknown Hallucinati Verified 10/07/16 12:27 ons iodine AdvReac Unknown Rash Verified 10/07/16 12:27 latex AdvReac Unknown Respiratory Verified 10/07/16 12:27 lamotrigine [From Lamictal] AdvReac Rash Verified 10/07/16 12:27 varenicline tartrate * AdvReac Hallucinati Verified 10/07/16 12:27 [From Chantix] ons steriods AdvReac Intermediate Unknown Uncoded 09/04/16 05:21 - Social History Does the pt smoke?: Yes Smoking Status: Current every day smoker Does the pt drink ETOH?: Yes Does the pt have substance abuse?: Yes - Immunizations Immunizations are current?: Yes - POLST Patient has POLST: No PD ED PE NORMAL - Vitals Vital signs reviewed: Yes - General General: Alert and oriented X 3, No acute distress - HEENT HEENT: Pharynx benign - Neck Neck: Supple, no meningeal sign, No bony TTP - Derm Derm: Other (Gen. erythema especially Sun exposed areas) - Neuro Neuro: Alert and oriented X 3, Normal speech - Psych Psych: Normal mood, Normal affect Results - Vitals Vitals: Vital Signs - 24 hr 11/08/16 17:46 Temperature 36.3 C L Heart Rate 92 Respiratory 22 Rate Blood Pressure 120/75 O2 Saturation 97 Oxygen O2 Source Room air PD MEDICAL DECISION MAKING - ED course ED course: Suspect this is new lower reaction is related to a different formulation of cefpodoxime as opposed to the drug itself. There is no evidence of anaphylaxis and she was administered IM Benadryl. Also IM Toradol for the complaint of an exacerbation of chronic headache. I noticed when I was doing my charting that I neglected to prescribe Keflex which I felt would be a good alternative the Cefpodoxime. Called them at home and prescription was called in to [facility] per their request. Departure - Departure Disposition: Home, Self Care Clinical Impression: Mastitis Headache Qualifiers: Headache type: unspecified Headache chronicity pattern: chronic headache Intractability: not intractable Qualified Code(s): R51 - Headache Allergic reaction caused by a drug Qualifiers: Encounter type: initial encounter Qualified Code(s): T78.40XA - Allergy, unspecified, initial encounter Condition: Good Record reviewed to determine appropriate education?: Yes Instructions: ED Drug React Allergic Prescriptions: diphenhydrAMINE [Benadryl] 25 mg PO Q4H PRN #20 capsule PRN Reason: Itching Cephalexin [Keflex] 500 mg PO QID 7 Days Comments: Call your doctor to arrange a follow up appointment. Make the next available appointment. In the interim return anytime if worse or if new symptoms develop. Discharge Date/Time: 11/08/16 18:44
== END 2016-11-08 18:44 | disposition home or self-care (01) ==
LOC: ED 17:37
DX: N61.0 Mastitis without abscess (principal); R51 Headache; T36.1X5A Adverse effect of cephalosporins and other beta-lactam antibiotics, initial encounter; I10 Essential (primary) hypertension; F17.200 Nicotine dependence, unspecified, uncomplicated; E11.9 Type 2 diabetes mellitus without complications; Z79.4 Long term (current) use of insulin
CPT/HCPCS: 96372; 99283

== ENCOUNTER 2016-11-18 14:44 | Outpatient (CLI) | payer MEDICARE, MEDICAID ==
[2016-11-18 15:20] LABS: BASOPHILS # (AUTO) 0.1 10^3/uL (0.0-0.1); BASOPHILS % (AUTO) 0.9 %; EOSINOPHILS # (AUTO) 0.2 10^3/uL (0.0-0.7); EOSINOPHILS % (AUTO) 2.1 %; HCT - HEMATOCRIT 48.9 % (37.0-47.0); HGB - HEMOGLOBIN 16.6 g/dL (12.0-16.0); LYMPHOCYTES # (AUTO) 3.4 10^3/uL (1.5-3.5); LYMPHOCYTES % (AUTO) 31.7 %; MEAN CORPUSCULAR HEMOGLOBIN 29.6 pg (27.0-31.0); MEAN PLATELET VOLUME 7.4 fL (7.9-10.8); MONOCYTES # (AUTO) 0.7 10^3/uL (0.0-1.0); MONOCYTES % (AUTO) 6.2 %; NEUTROPHILS # (AUTO) 6.3 10^3/uL (1.5-6.6); NEUTROPHILS % (AUTO) 59.1 %; NUCLEATED RED BLOOD CELLS AUTO 0.1 /100WBC; RED BLOOD COUNT 5.62 10^6/uL (4.20-5.40); RED CELL DISTRIBUTION WIDTH 14.8 % (12.0-15.0); UNCORRECTED WHITE BLOOD COUNT 10.6 x10^3/uL; WHITE BLOOD COUNT 10.6 x10^3/uL (4.8-10.8)
== END 2016-11-18 14:45 | disposition home or self-care (01) ==
LOC: LAB 14:44
PROVIDERS: ATTEND Psychiatry & Neurology Psychiatry
DX: Z79.899 Other long term (current) drug therapy (principal)
CPT/HCPCS: 36415; 85025

== ENCOUNTER 2016-11-26 22:34 | Outpatient (CLI) | payer MEDICARE, MEDICAID | END 2016-11-26 22:35 | disposition critical access hospital (66) | DX: R11.2 Nausea with vomiting, unspecified (principal); R19.7 Diarrhea, unspecified; R06.02 Shortness of breath | CPT/HCPCS: A0425; A0427 ==

== ENCOUNTER 2016-11-26 22:39 | Emergency (ER) | payer MEDICARE, MEDICAID ==
[2016-11-26] MEDS ORDERED: ONDANSETRON 4 MG/2 ML VIAL IVP STA (23:00)
[2016-11-26] MEDS ORDERED: SODIUM CHLORIDE 0.9% 1,000 ML IV ONE ×2 (23:00→23:04)
[2016-11-26] MEDS ORDERED: ONDANSETRON 4 MG/2 ML VIAL ONE (23:04)
[2016-11-26 23:26] LABS: BASOPHILS # (AUTO) 0.1 10^3/uL (0.0-0.1); BASOPHILS % (AUTO) 0.9 %; EOSINOPHILS # (AUTO) 0.2 10^3/uL (0.0-0.7); EOSINOPHILS % (AUTO) 2.1 %; HCT - HEMATOCRIT 45.1 % (37.0-47.0); HGB - HEMOGLOBIN 15.6 g/dL (12.0-16.0); LYMPHOCYTES # (AUTO) 2.8 10^3/uL (1.5-3.5); LYMPHOCYTES % (AUTO) 24.8 %; MEAN CORPUSCULAR HEMOGLOBIN 29.9 pg (27.0-31.0); MEAN CORPUSCULAR HGB CONC 34.5 g/dL (32.0-36.0); MEAN CORPUSCULAR VOLUME 86.5 fL (81.0-99.0); MEAN PLATELET VOLUME 6.9 fL (7.9-10.8); MONOCYTES # (AUTO) 0.6 10^3/uL (0.0-1.0); MONOCYTES % (AUTO) 5.6 %; NEUTROPHILS # (AUTO) 7.5 10^3/uL (1.5-6.6); NEUTROPHILS % (AUTO) 66.6 %; NUCLEATED RED BLOOD CELLS AUTO 0.1 /100WBC; RED BLOOD COUNT 5.21 10^6/uL (4.20-5.40); RED CELL DISTRIBUTION WIDTH 14.3 % (12.0-15.0); UNCORRECTED WHITE BLOOD COUNT 11.3 x10^3/uL; WHITE BLOOD COUNT 11.3 x10^3/uL (4.8-10.8)
[2016-11-26] MEDS ORDERED: IPRATROPIUM/ALBUTEROL 3 ML NEB INH STA (23:38)
[2016-11-26 23:40] LABS: ALBUMIN/GLOBULIN RATIO 1.2 (1.0-2.2); BILIRUBIN,TOTAL 0.3 mg/dL (0.2-1.0); CALCIUM 8.9 mg/dL (8.5-10.3); CREATININE 0.5 mg/dL (0.4-1.0); POTASSIUM 3.5 mmol/L (3.5-5.0); TOTAL PROTEIN 6.9 g/dL (6.7-8.2)
[2016-11-26] MEDS ORDERED: IPRATROPIUM/ALBUTEROL 3 ML NEB INH ONE (23:41)
[2016-11-27 00:53] LABS: BILIRUBIN,URINE NEGATIVE (NEGATIVE); PH,URINE 6.5 PH (5.0-7.5)
[2016-11-27 00:54] LABS: UA CHARGE (STRIP ONLY) YES; UR CULTURE IF IND NOT INDICATED
--- NOTE | 2016-11-27 01:39 | XRAY Preliminary Report ---
Exam: XR Chest 2 View PA/LAT IMPRESSION: 1. Hypoventilation. 2. No pneumothorax or effusions. [facility] SITE ID: [id number]
--- NOTE | 2016-11-27 02:26 | XRAY Report ---
EXAM: CHEST RADIOGRAPHY EXAM DATE: 11/27/2016 01:25 AM. CLINICAL HISTORY: SOA. COMPARISON: 10/06/2016. TECHNIQUE: 2 views. FINDINGS: Lungs/Pleura: Hypoventilatory changes. No effusions or pneumothorax. Mediastinum: Heart and mediastinal contours are unremarkable. Other: None. IMPRESSION: 1. Hypoventilation. 2. No pneumothorax or effusions. [facility] Referring Provider Line: [phone] SITE ID: [id number]
--- NOTE | 2016-11-27 04:20 | ED Physician Documentation ---
PD HPI NVD - Stated complaint Stated Complaint: VOMITING - Chief complaint Chief Complaint: Abd Pain - History obtained from History obtained from: Patient, EMS - History of Present Illness Timing - onset: How many days ago (4) Timing - duration: Days (4) Timing - details: Gradual onset, Still present Associated symptoms: Other (altered LOC) Contributing factors: Diabetes Improved by: Vomiting Similar symptoms before: Diagnosis (gastroenteritis) Recently seen: Emergency Dept (The patient has recently been seen in the emergency department for right breast mastitis. This was thought to possibly related to a inflammatory breast carcinoma and she has been seen for this as an outpatient.) - Additonal information Additional information: 36-year-old female with a history ofDiabetes and schizoaffective disorder has developed some diarrhea and vomiting over the past several days and tonight she took some baclofen she believes she may have taken a double dose of this medicine and she is extremely sleepy and has had a severe asthma attack. She arrives to the emergency department with nebulizer running and rhonchorous breathing. She is initially difficult to arouse but does answer questions appropriately. Review of Systems Constitutional: denies: Fever Eyes: denies: Decreased vision Ears: denies: Ear pain Nose: denies: Rhinorrhea / runny nose, Congestion Throat: denies: Sore throat Cardiac: denies: Chest pain / pressure, Palpitations Respiratory: reports: Dyspnea, Cough GI: reports: Nausea, Vomiting, Diarrhea : denies: Dysuria, Frequency Skin: denies: Rash Musculoskeletal: denies: Neck pain, Back pain Neurologic: reports: Generalized weakness. denies: Focal weakness, Numbness PD PAST MEDICAL HISTORY - Past Medical History Cardiovascular: Hypertension, High cholesterol Respiratory: Asthma, Sleep apnea Neuro: Headache/migraine, Peripheral neuropathy, Seizure disorder Endocrine/Autoimmune: Type 2 diabetes GI: GERD, Ulcers, Chronic diarrhea, Other MINUTE CLERK: None : Incontinence HEENT: None Psych: Anxiety, Bipolar disorder, Schizophrenia, ADD/ADHD, Post traumatic stress disorder, Obsessive compulsive disorder Musculoskeletal: Osteoarthritis, Osteoporosis Derm: Other drug resistant infections - Past Surgical History Past Surgical History: Yes General: Cholecystectomy /MINUTE CLERK: Tubal ligation, Other HEENT: Tonsil/Adenoidectomy - Present Medications Home Medications: Ambulatory Orders Medication Instructions Recorded Confirmed Baclofen 10 mg PO QID PRN 10/31/16 10/31/16 Clonazepam 1 mg PO DAILY PRN 06/09/17 06/09/17 Insulin Aspart (Vial) [NovoLOG 1 - 10 unit SUBQ .SLIDINGSCALE 10/31/16 10/31/16 (VIAL FOR ED USE)] Insulin Regular, Human [Humulin R 25 units SUBQ BID 10/31/16 10/31/16 U-500] Metformin HCl [Glucophage Xr] 500 mg PO BIDWM 10/31/16 10/31/16 - Allergies Allergies/Adverse Reactions: Allergies Allergy/AdvReac Type Severity Reaction Status Date / Time Latex, Natural Rubber Allergy Mild Rash Verified 10/07/16 12:27 acetaminophen [From Vicodin] Allergy Hives Verified 10/07/16 12:27 hydrocodone bitartrate * Allergy Hives Verified 10/07/16 12:27 [From Vicodin] Penicillins Allergy Rash Verified 10/07/16 12:27 tramadol Allergy Rash Verified 10/07/16 12:27 adhesive AdvReac Intermediate chemical Verified 10/07/16 12:27 logan haloperidol [From Haldol] AdvReac Unknown Hallucinati Verified 10/07/16 12:27 ons iodine AdvReac Unknown Rash Verified 10/07/16 12:27 latex AdvReac Unknown Respiratory Verified 10/07/16 12:27 lamotrigine [From Lamictal] AdvReac Rash Verified 10/07/16 12:27 varenicline tartrate * AdvReac Hallucinati Verified 10/07/16 12:27 [From Chantix] ons steriods AdvReac Intermediate Unknown Uncoded 09/04/16 05:21 - Social History Does the pt smoke?: Yes Smoking Status: Current every day smoker Does the pt drink ETOH?: Yes Does the pt have substance abuse?: Yes - Immunizations Immunizations are current?: Yes - POLST Patient has POLST: No PD ED PE NORMAL - Vitals Vital signs reviewed: Yes (Tachycardic and hypertensive) - General General: Well developed/nourished, Other (Initially the patient has loud audible wheezing and she is less responsive.) - HEENT HEENT: Atraumatic, PERRL, EOMI - Neck Neck: Supple, no meningeal sign - Cardiac Cardiac: RRR, No murmur - Respiratory Respiratory: No respiratory distress, Clear bilaterally - Abdomen Abdomen: Soft, Non tender - Back Back: No CVA TTP, No spinal TTP - Derm Derm: Normal color, Warm and dry, No rash - Extremities Extremities: No deformity, No edema - Neuro Neuro: No motor deficit, No sensory deficit Results - Vitals Vitals: Vital Signs - 24 hr 11/26/16 11/26/16 11/26/16 22:42 23:08 23:25 Temperature 36.9 C Heart Rate 102 H 102 H Respiratory 18 20 Rate Blood Pressure 117/82 H 124/79 O2 Saturation 97 93 88 L 11/26/16 11/27/16 11/27/16 23:48 00:35 01:20 Temperature Heart Rate 94 100 94 Respiratory 20 20 25 H Rate Blood Pressure 121/76 114/80 O2 Saturation 94 99 11/27/16 11/27/16 11/27/16 01:51 02:00 02:45 Temperature 37.1 C Heart Rate 85 81 90 Respiratory 23 24 Rate Blood Pressure 112/63 106/72 O2 Saturation 97 96 95 11/27/16 11/27/16 11/27/16 03:33 04:00 04:23 Temperature 37.1 C Heart Rate 86 94 99 Respiratory 22 20 18 Rate Blood Pressure 110/87 H 104/60 141/97 H O2 Saturation 93 98 93 Oxygen O2 Source Room air Oxygen Flow Rate 6 - Labs Labs: Laboratory Tests 11/26/16 11/26/16 11/27/16 23:15 23:15 00:45 WBC 11.3 H RBC 5.21 Hgb 15.6 Hct 45.1 MCV 86.5 MCH 29.9 MCHC 34.5 RDW 14.3 Plt Count 230 MPV 6.9 L Neut # 7.5 H Lymph # 2.8 [place] # 0.6 Eos # 0.2 Baso # 0.1 Absolute Nucleated RBC 0.01 Nucleated RBCs 0.1 Sodium 136 Potassium 3.5 Chloride 100 L Carbon Dioxide 27 Anion Gap 9.0 BUN 10 Creatinine 0.5 Estimated GFR (MDRD) 141 Glucose 301 H Calcium 8.9 Total Bilirubin 0.3 AST 10 ALT 17 Alkaline Phosphatase 70 Total Protein 6.9 Albumin 3.8 Globulin 3.1 Albumin/Globulin Ratio 1.2 Lipase 19 L Urine Color YELLOW Urine Clarity CLEAR Urine pH 6.5 Ur Specific [place] 1.015 Urine Protein TRACE Urine Glucose (UA) >=1000 H Urine Ketones 40 H Urine Occult Blood NEGATIVE Urine Nitrite NEGATIVE Urine Bilirubin NEGATIVE Urine Urobilinogen 0.2 (NORMAL) Ur Leukocyte Esterase NEGATIVE Ur Microscopic Review NOT INDICATED Urine Culture Comments NOT INDICATED Urine Opiates Screen NEGATIVE Ur Oxycodone Screen NEGATIVE Urine Methadone Screen NEGATIVE Ur Propoxyphene Screen NEGATIVE Ur Barbiturates Screen NEGATIVE Ur Tricyclics Screen NEGATIVE Ur Phencyclidine Scrn NEGATIVE Ur Amphetamine Screen NEGATIVE U Methamphetamines Scrn NEGATIVE U Benzodiazepines Scrn NEGATIVE Urine Cocaine Screen NEGATIVE U Cannabinoids Screen POSITIVE H - Rads (name of study) 2 view chest Radiology: Prelim report reviewed (Impression: 1. Hypoventilation.2. No pneumothorax or effusions.), EMP read indepedently, See rad report PD MEDICAL DECISION MAKING - ED course Complexity details: reviewed old records, reviewed results, re-evaluated patient , considered differential, d/w patient, d/w family ED course: 36-year-old female with a long history here in the emergency department of various complaints is presents with diarrhea and vomiting appears dehydrated she is administered intravenous fluids. She arrives with rhonchorous breathing and is administered a second DuoNeb treatment while she is here although when I examined the patient she had clear lungs and this was similar to the exam done by the rest were therapist. She did seem to have some improvement with the treatment and she did not require oxygen after several hours in the emergency department. She did appear very sleepy on arrival to the emergency department and this cleared over a period of time. She eventually sat up and wanted to go home at which time she was discharged. I was not able to ascertain exactly what this visit represented. She did come in with abnormal vital signs and difficulty breathing and a depressed level of consciousness. This is most consistent with an overdose of 1 of her medications that metabolized overnight and she was able to get up and walk home. Departure - Departure Disposition: 01 Home, Self Care Clinical Impression: Altered awareness, transient, Gastroenteritis Condition: Stable Instructions: ED Gastroenteritis Non Infec Follow-Up: Lorna Mulligan MD [Primary Care Provider] - Discharge Date/Time: 11/27/16 04:36
[2016-11-27 04:26] VITALS: BP 141/97
== END 2016-11-27 04:36 | disposition home or self-care (01) ==
LOC: EDUNIT# → ED 22:39
DX: K52.9 Noninfective gastroenteritis and colitis, unspecified (principal); E11.9 Type 2 diabetes mellitus without complications; I10 Essential (primary) hypertension; Z79.84 Long term (current) use of oral hypoglycemic drugs; Z79.4 Long term (current) use of insulin
CPT/HCPCS: 36415; 51701; 71020; 80053; 80306; 81003; 83690; 85025; 94640; 96374; 99284; 99285; J7620; 81001; 87086

== ENCOUNTER 2016-12-02 21:34 | Emergency (ER) | payer MEDICARE, MEDICAID ==
--- NOTE | 2016-12-02 22:02 | ED Physician Documentation ---
History of Present Illness - Stated complaint Stated Complaint: SEIZURES - Chief complaint Chief Complaint: Neuro - History obtained from History obtained from: Patient - History of Present Illness Timing: Enter time (17:30), Today Worsened by: no apparent inciting/exacerbating factors - Additonal information Additional information: c/o seizure x 4 since 5:30 PM tonight. Patient says she has both petit mal and grand mal seizures, and she lost consciousness with two of the seizures tonight but not the other two. S.O. corroborates this. Patient was in bed when she had the seizures. She also c/o JOYA and generalized muscle aches. Denies missed doses of her zonegran Review of Systems Constitutional: denies: Fever, Chills, Sweats Eyes: reports: Reviewed and negative Cardiac: reports: Reviewed and negative Respiratory: reports: Reviewed and negative GI: reports: Reviewed and negative Neurologic: reports: Seizure, Headache. denies: Generalized weakness, Focal weakness, Numbness, Confused, Altered mental status, Head injury PD PAST MEDICAL HISTORY - Past Medical History Cardiovascular: Hypertension, High cholesterol Respiratory: Asthma, Sleep apnea Neuro: Headache/migraine, Peripheral neuropathy, Seizure disorder Endocrine/Autoimmune: Type 2 diabetes GI: GERD, Ulcers, Chronic diarrhea, Other [employer] FORMER: None : Incontinence HEENT: None Psych: Anxiety, Bipolar disorder, Schizophrenia, ADD/ADHD, Post traumatic stress disorder, Obsessive compulsive disorder Musculoskeletal: Osteoarthritis, Osteoporosis Derm: Other drug resistant infections - Past Surgical History Past Surgical History: Yes General: Cholecystectomy /[employer] 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: Tubal ligation, Other HEENT: Tonsil/Adenoidectomy - Present Medications Home Medications: Ambulatory Orders Medication Instructions Recorded Confirmed Baclofen 10 mg PO QID PRN 10/31/16 10/31/16 Clonazepam 1 mg PO DAILY PRN 10/31/16 10/31/16 Insulin Aspart (Vial) [NovoLOG 1 - 10 unit SUBQ .SLIDINGSCALE 10/31/16 10/31/16 (VIAL FOR ED USE)] Insulin Regular, Human [Humulin R 25 units SUBQ BID 10/31/16 10/31/16 U-500] Metformin HCl [Glucophage Xr] 500 mg PO BIDWM 10/31/16 10/31/16 Zonisamide [Zonegran] 200 mg PO BID 12/02/16 12/02/16 - Allergies Allergies/Adverse Reactions: Allergies Allergy/AdvReac Type Severity Reaction Status Date / Time Latex, Natural Rubber Allergy Mild Rash Verified 12/02/16 21:42 acetaminophen [From Vicodin] Allergy Hives Verified 12/02/16 21:42 hydrocodone bitartrate * Allergy Hives Verified 12/02/16 21:42 [From Vicodin] Penicillins Allergy Rash Verified 12/02/16 21:42 tramadol Allergy Rash Verified 12/02/16 21:42 adhesive AdvReac Intermediate chemical Verified 12/02/16 21:42 logan haloperidol [From Haldol] AdvReac Unknown Hallucinati Verified 12/02/16 21:42 ons iodine AdvReac Unknown Rash Verified 12/02/16 21:42 latex AdvReac Unknown Respiratory Verified 12/02/16 21:42 lamotrigine [From Lamictal] AdvReac Rash Verified 12/02/16 21:42 varenicline tartrate * AdvReac Hallucinati Verified 12/02/16 21:42 [From Chantix] ons steriods AdvReac Intermediate Unknown Uncoded 12/02/16 21:42 - Social History Does the pt smoke?: Yes Smoking Status: Current every day smoker Does the pt drink ETOH?: Yes Does the pt have substance abuse?: Yes - Immunizations Immunizations are current?: Yes - POLST Patient has POLST: No PD ED PE NORMAL - Vitals Vital signs reviewed: Yes - General General: Alert and oriented X 3, No acute distress, Well developed/nourished - HEENT HEENT: PERRL, EOMI - Neck Neck: Supple, no meningeal sign - Cardiac Cardiac: RRR, No murmur - Respiratory Respiratory: No respiratory distress, Clear bilaterally - Abdomen Abdomen: Soft, Non tender - Neuro Neuro: Alert and oriented X 3, underwear finisher 2-12 intact, No motor deficit, No sensory deficit, Normal speech Results - Vitals Vitals: Vital Signs - 24 hr 12/02/16 12/02/16 21:37 23:54 Temperature 36.8 C Heart Rate 104 H 92 Respiratory 18 16 Rate Blood Pressure 126/82 H 121/67 O2 Saturation 97 97 Oxygen O2 Source Room air PD MEDICAL DECISION MAKING - ED course Complexity details: reviewed results, re-evaluated patient, considered differential, d/w patient ED course: Well appearing/NAD. I did not witness any seizure activity during her ED stay, although s.o. informed RN that he saw patient have two petit mal seizures during her stay (these had stopped before ED staff came into room). I was going to order 200mg zonegran for patient (her dose is 200mg BID, but maximum is 600mg /day), but we do not have this medication in ED or hospital. Given 0.5mg ativan to raise seizure threshold and, prior to discharge, patient said she felt well and was comfortable with d/c. As she did not exhibit any sedation, I ordered 1mg ativan prior to d/c to further raise seizure threshold. She requested something for her headache and body aches, specifically tylenol or ibuprofen; ibuprofen given Departure - Departure Disposition: 01 Home, Self Care Clinical Impression: Seizure Condition: Good Instructions: ED Seizure Recurrent Discharge Date/Time: 12/02/16 23:55
[2016-12-02] MEDS ORDERED: LORazepam 0.5 MG TABLET PO STA ×2 (22:19→23:49)
[2016-12-02] MEDS ORDERED: LORazepam 0.5 MG TABLET ONE ×2 (22:21→23:50)
[2016-12-02] MEDS ORDERED: IBUPROFEN 600 MG TABLET PO STA (23:49)
[2016-12-02] MEDS ORDERED: IBUPROFEN 600 MG TABLET PO ONE (23:49)
[2016-12-02 23:55] VITALS: BP 121/67
== END 2016-12-02 23:55 | disposition home or self-care (01) ==
LOC: ED 21:34
DX: R56.9 Unspecified convulsions (principal); I10 Essential (primary) hypertension; E78.00 Pure hypercholesterolemia, unspecified; J45.909 Unspecified asthma, uncomplicated; E11.42 Type 2 diabetes mellitus with diabetic polyneuropathy; Z79.4 Long term (current) use of insulin; K21.9 Gastro-esophageal reflux disease without esophagitis; Z87.11 Personal history of peptic ulcer disease; M19.90 Unspecified osteoarthritis, unspecified site; F17.200 Nicotine dependence, unspecified, uncomplicated
CPT/HCPCS: 99283; A9270

== ENCOUNTER 2016-12-03 16:32 | Outpatient (CLI) | payer MEDICARE, MEDICAID ==
[2016-12-03 16:45] LABS: BASOPHILS # (AUTO) 0.1 10^3/uL (0.0-0.1); EOSINOPHILS # (AUTO) 0.2 10^3/uL (0.0-0.7); EOSINOPHILS % (AUTO) 1.8 %; HCT - HEMATOCRIT 49.2 % (37.0-47.0); HGB - HEMOGLOBIN 16.6 g/dL (12.0-16.0); LYMPHOCYTES # (AUTO) 2.6 10^3/uL (1.5-3.5); MEAN CORPUSCULAR HEMOGLOBIN 29.3 pg (27.0-31.0); MEAN CORPUSCULAR HGB CONC 33.7 g/dL (32.0-36.0); MEAN CORPUSCULAR VOLUME 86.9 fL (81.0-99.0); MEAN PLATELET VOLUME 6.9 fL (7.9-10.8); MONOCYTES # (AUTO) 0.7 10^3/uL (0.0-1.0); MONOCYTES % (AUTO) 5.6 %; NEUTROPHILS # (AUTO) 8.6 10^3/uL (1.5-6.6); NEUTROPHILS % (AUTO) 70.6 %; RED BLOOD COUNT 5.66 10^6/uL (4.20-5.40); RED CELL DISTRIBUTION WIDTH 14.4 % (12.0-15.0); UNCORRECTED WHITE BLOOD COUNT 12.1 x10^3/uL; WHITE BLOOD COUNT 12.1 x10^3/uL (4.8-10.8)
== END 2016-12-03 16:33 | disposition home or self-care (01) ==
LOC: LAB 16:32
PROVIDERS: ATTEND Psychiatry & Neurology Psychiatry
DX: Z79.899 Other long term (current) drug therapy (principal)
CPT/HCPCS: 36415; 85025

== ENCOUNTER 2016-12-05 16:19 | Outpatient (CLI) | payer MEDICARE, MEDICAID | END 2016-12-05 16:20 | disposition home or self-care (01) | LOC: LAB 16:19 | PROVIDERS: ATTEND Psychiatry & Neurology Psychiatry | DX: Z79.899 Other long term (current) drug therapy (principal) | CPT/HCPCS: 80306 ==

== ENCOUNTER 2016-12-10 12:05 | Outpatient (CLI) | payer MEDICARE, MEDICAID ==
[2016-12-10 12:52] LABS: BASOPHILS # (AUTO) 0.1 10^3/uL (0.0-0.1); BASOPHILS % (AUTO) 0.9 %; EOSINOPHILS # (AUTO) 0.2 10^3/uL (0.0-0.7); EOSINOPHILS % (AUTO) 1.7 %; HCT - HEMATOCRIT 46.9 % (37.0-47.0); HGB - HEMOGLOBIN 16.1 g/dL (12.0-16.0); LYMPHOCYTES # (AUTO) 2.8 10^3/uL (1.5-3.5); LYMPHOCYTES % (AUTO) 29.3 %; MEAN CORPUSCULAR HEMOGLOBIN 29.3 pg (27.0-31.0); MEAN CORPUSCULAR HGB CONC 34.2 g/dL (32.0-36.0); MEAN CORPUSCULAR VOLUME 85.8 fL (81.0-99.0); MONOCYTES # (AUTO) 0.6 10^3/uL (0.0-1.0); MONOCYTES % (AUTO) 6.4 %; NEUTROPHILS # (AUTO) 5.9 10^3/uL (1.5-6.6); NEUTROPHILS % (AUTO) 61.7 %; NUCLEATED RED BLOOD CELLS AUTO 0.1 /100WBC; RED BLOOD COUNT 5.47 10^6/uL (4.20-5.40); RED CELL DISTRIBUTION WIDTH 14.4 % (12.0-15.0); UNCORRECTED WHITE BLOOD COUNT 9.6 x10^3/uL; WHITE BLOOD COUNT 9.6 x10^3/uL (4.8-10.8)
[2016-12-13 11:36] LABS: TEST RESULT REPORT (())
== END 2016-12-10 12:06 | disposition home or self-care (01) ==
LOC: LAB 12:05
PROVIDERS: ATTEND Internal Medicine
DX: R56.9 Unspecified convulsions (principal); Z79.899 Other long term (current) drug therapy
CPT/HCPCS: 36415; 80203; 81599; 85025

== ENCOUNTER 2016-12-12 16:52 | Outpatient (CLI) | payer MEDICARE, MEDICAID ==
--- NOTE | 2016-12-12 17:36 | XRAY Preliminary Report ---
Exam: XR Shoulder 3 View LT IMPRESSION: Increasing calcific tendinitis. [facility] SITE ID: [id number]
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
== END 2016-12-12 16:53 | disposition home or self-care (01) ==
LOC: DI 16:52
PROVIDERS: ATTEND Internal Medicine
DX: M75.32 Calcific tendinitis of left shoulder (principal)

== ENCOUNTER 2016-12-17 12:16 | Outpatient (CLI) | payer MEDICARE, MEDICAID ==
[2016-12-17 12:40] LABS: BASOPHILS % (AUTO) 0.4 %; EOSINOPHILS # (AUTO) 0.1 10^3/uL (0.0-0.7); HCT - HEMATOCRIT 47.8 % (37.0-47.0); HGB - HEMOGLOBIN 16.3 g/dL (12.0-16.0); LYMPHOCYTES # (AUTO) 2.2 10^3/uL (1.5-3.5); LYMPHOCYTES % (AUTO) 16.3 %; MEAN CORPUSCULAR HEMOGLOBIN 29.1 pg (27.0-31.0); MEAN CORPUSCULAR VOLUME 85.6 fL (81.0-99.0); MEAN PLATELET VOLUME 7.4 fL (7.9-10.8); MONOCYTES # (AUTO) 0.5 10^3/uL (0.0-1.0); MONOCYTES % (AUTO) 4.1 %; NEUTROPHILS # (AUTO) 10.4 10^3/uL (1.5-6.6); NEUTROPHILS % (AUTO) 78.2 %; RED BLOOD COUNT 5.59 10^6/uL (4.20-5.40); RED CELL DISTRIBUTION WIDTH 14.2 % (12.0-15.0); UNCORRECTED WHITE BLOOD COUNT 13.3 x10^3/uL; WHITE BLOOD COUNT 13.3 x10^3/uL (4.8-10.8)
== END 2016-12-17 12:17 | disposition home or self-care (01) ==
LOC: LAB 12:16
PROVIDERS: ATTEND Psychiatry & Neurology Psychiatry
DX: Z79.899 Other long term (current) drug therapy (principal)
CPT/HCPCS: 36415; 85025

== ENCOUNTER 2016-12-26 14:42 | Outpatient (CLI) | payer MEDICARE, MEDICAID ==
[2016-12-26 15:01] LABS: BASOPHILS # (AUTO) 0.1 10^3/uL (0.0-0.1); BASOPHILS % (AUTO) 0.9 %; EOSINOPHILS # (AUTO) 0.2 10^3/uL (0.0-0.7); EOSINOPHILS % (AUTO) 2.6 %; HCT - HEMATOCRIT 44.1 % (37.0-47.0); HGB - HEMOGLOBIN 15.2 g/dL (12.0-16.0); MEAN CORPUSCULAR HEMOGLOBIN 29.5 pg (27.0-31.0); MEAN CORPUSCULAR HGB CONC 34.4 g/dL (32.0-36.0); MEAN CORPUSCULAR VOLUME 85.8 fL (81.0-99.0); MEAN PLATELET VOLUME 7.1 fL (7.9-10.8); MONOCYTES # (AUTO) 0.5 10^3/uL (0.0-1.0); MONOCYTES % (AUTO) 5.5 %; NEUTROPHILS # (AUTO) 4.6 10^3/uL (1.5-6.6); RED BLOOD COUNT 5.14 10^6/uL (4.20-5.40); RED CELL DISTRIBUTION WIDTH 14.5 % (12.0-15.0); UNCORRECTED WHITE BLOOD COUNT 8.4 x10^3/uL; WHITE BLOOD COUNT 8.4 x10^3/uL (4.8-10.8)
== END 2016-12-26 14:43 | disposition home or self-care (01) ==
LOC: LAB 14:42
PROVIDERS: ATTEND Psychiatry & Neurology Psychiatry
DX: Z79.899 Other long term (current) drug therapy (principal)
CPT/HCPCS: 36415; 85025

== ENCOUNTER → 2017-01-01 | Outpatient (CLI) | payer MEDICARE, MEDICAID ==
[2017-01-01 11:04] LABS: BASOPHILS # (AUTO) 0.1 10^3/uL (0.0-0.1); BASOPHILS % (AUTO) 0.6 %; EOSINOPHILS # (AUTO) 0.2 10^3/uL (0.0-0.7); EOSINOPHILS % (AUTO) 2.1 %; HGB - HEMOGLOBIN 15.6 g/dL (12.0-16.0); LYMPHOCYTES # (AUTO) 2.6 10^3/uL (1.5-3.5); LYMPHOCYTES % (AUTO) 28.9 %; MEAN CORPUSCULAR HGB CONC 33.9 g/dL (32.0-36.0); MEAN CORPUSCULAR VOLUME 88.5 fL (81.0-99.0); MEAN PLATELET VOLUME 7.2 fL (7.9-10.8); MONOCYTES # (AUTO) 0.5 10^3/uL (0.0-1.0); MONOCYTES % (AUTO) 5.3 %; NEUTROPHILS # (AUTO) 5.7 10^3/uL (1.5-6.6); NEUTROPHILS % (AUTO) 63.1 %; RED BLOOD COUNT 5.19 10^6/uL (4.20-5.40); UNCORRECTED WHITE BLOOD COUNT 9.1 x10^3/uL; WHITE BLOOD COUNT 9.1 x10^3/uL (4.8-10.8)
== END ==
LOC: LAB 08:00
PROVIDERS: ATTEND Psychiatry & Neurology Psychiatry
DX: Z79.899 Other long term (current) drug therapy (principal)
CPT/HCPCS: 36415; 85025

== ENCOUNTER 2017-01-06 13:56 | Outpatient (CLI) | payer MEDICARE, MEDICAID ==
[2017-01-06 14:42] LABS: BASOPHILS # (AUTO) 0.1 10^3/uL (0.0-0.1); EOSINOPHILS # (AUTO) 0.2 10^3/uL (0.0-0.7); EOSINOPHILS % (AUTO) 2.2 %; HCT - HEMATOCRIT 47.4 % (37.0-47.0); HGB - HEMOGLOBIN 15.9 g/dL (12.0-16.0); LYMPHOCYTES # (AUTO) 2.7 10^3/uL (1.5-3.5); LYMPHOCYTES % (AUTO) 29.8 %; MEAN CORPUSCULAR HEMOGLOBIN 29.3 pg (27.0-31.0); MEAN CORPUSCULAR HGB CONC 33.6 g/dL (32.0-36.0); MEAN CORPUSCULAR VOLUME 87.2 fL (81.0-99.0); MEAN PLATELET VOLUME 7.3 fL (7.9-10.8); MONOCYTES # (AUTO) 0.6 10^3/uL (0.0-1.0); MONOCYTES % (AUTO) 6.6 %; NEUTROPHILS # (AUTO) 5.4 10^3/uL (1.5-6.6); NEUTROPHILS % (AUTO) 60.4 %; RED BLOOD COUNT 5.43 10^6/uL (4.20-5.40); RED CELL DISTRIBUTION WIDTH 14.8 % (12.0-15.0); UNCORRECTED WHITE BLOOD COUNT 8.9 x10^3/uL; WHITE BLOOD COUNT 8.9 x10^3/uL (4.8-10.8)
== END 2017-01-06 13:57 | disposition home or self-care (01) ==
LOC: LAB 13:56
PROVIDERS: ATTEND Psychiatry & Neurology Psychiatry
DX: Z79.899 Other long term (current) drug therapy (principal)
CPT/HCPCS: 36415; 85025

== ENCOUNTER → 2017-01-13 | Outpatient (CLI) | payer MEDICARE, MEDICAID ==
[2017-01-13 15:49] LABS: BASOPHILS # (AUTO) 0.1 10^3/uL (0.0-0.1); BASOPHILS % (AUTO) 0.8 %; EOSINOPHILS # (AUTO) 0.2 10^3/uL (0.0-0.7); EOSINOPHILS % (AUTO) 1.7 %; HCT - HEMATOCRIT 44.4 % (37.0-47.0); HGB - HEMOGLOBIN 15.3 g/dL (12.0-16.0); LYMPHOCYTES # (AUTO) 2.5 10^3/uL (1.5-3.5); LYMPHOCYTES % (AUTO) 23.6 %; MEAN CORPUSCULAR HEMOGLOBIN 29.8 pg (27.0-31.0); MEAN CORPUSCULAR HGB CONC 34.4 g/dL (32.0-36.0); MEAN CORPUSCULAR VOLUME 86.7 fL (81.0-99.0); MEAN PLATELET VOLUME 7.3 fL (7.9-10.8); MONOCYTES # (AUTO) 0.6 10^3/uL (0.0-1.0); MONOCYTES % (AUTO) 5.6 %; NEUTROPHILS # (AUTO) 7.1 10^3/uL (1.5-6.6); NEUTROPHILS % (AUTO) 68.3 %; NUCLEATED RED BLOOD CELLS AUTO 0.1 /100WBC; RED BLOOD COUNT 5.13 10^6/uL (4.20-5.40); RED CELL DISTRIBUTION WIDTH 14.9 % (12.0-15.0); UNCORRECTED WHITE BLOOD COUNT 10.4 x10^3/uL; WHITE BLOOD COUNT 10.4 x10^3/uL (4.8-10.8)
== END ==
LOC: LAB 08:00
PROVIDERS: ATTEND Psychiatry & Neurology Psychiatry
DX: Z79.899 Other long term (current) drug therapy (principal)
CPT/HCPCS: 36415; 85025

== ENCOUNTER 2017-01-16 16:27 | Outpatient (CLI) | payer MEDICARE, MEDICAID | END 2017-01-16 16:28 | disposition critical access hospital (66) | LOC: EMS 16:27 | PROVIDERS: ATTEND Surgery | DX: R56.9 Unspecified convulsions (principal) | CPT/HCPCS: A0425; A0429 ==

== ENCOUNTER 2017-01-16 16:34 | Emergency (ER) | payer MEDICARE, MEDICAID ==
[2017-01-16] MEDS ORDERED: KETOROLAC 60 MG/2 ML VIAL IM STA (16:45)
[2017-01-16] MEDS ORDERED: LORazepam 2 MG/ML SYRINGE IM STA (16:45)
--- NOTE | 2017-01-16 16:46 | ED Physician Documentation ---
History of Present Illness - Stated complaint Stated Complaint: SEIZURES - Chief complaint Chief Complaint: General - History obtained from History obtained from: Patient - History of Present Illness Timing: Other (36-year-old woman with history of both seizures and pseudoseizures. She says for unclear reasons over the last day she has had an increased in seizure frequency with 13 yesterday and 5 today an episode of incontinence overnight. She has no specific injuries but does have body wide soreness from all this. 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: None : Incontinence HEENT: None Psych: Anxiety, Bipolar disorder, Schizophrenia, ADD/ADHD, Post traumatic stress disorder, Obsessive compulsive disorder Musculoskeletal: Osteoarthritis, Osteoporosis Derm: Other drug resistant infections - Past Surgical History Past Surgical History: Yes General: Cholecystectomy /ZINC MINER BLASTING: Tubal ligation, Other HEENT: Tonsil/Adenoidectomy - Present Medications Home Medications: Ambulatory Orders Medication Instructions Recorded Confirmed Baclofen 10 mg PO QID PRN 10/31/16 01/16/17 Clonazepam 1 mg PO DAILY PRN 10/31/16 01/16/17 Insulin Aspart (Vial) [NovoLOG 1 - 10 unit SUBQ .SLIDINGSCALE 10/31/16 01/16/17 (VIAL FOR ED USE)] Insulin Regular, Human [Humulin R 25 units SUBQ BID 10/31/16 01/16/17 U-500] Metformin HCl [Glucophage Xr] 500 mg PO BIDWM 10/31/16 01/16/17 Zonisamide [Zonegran] 200 mg PO TID 12/02/16 01/16/17 Lorazepam [Ativan] 1 mg PO TID PRN #5 tablet 01/16/17 - Allergies Allergies/Adverse Reactions: Allergies Allergy/AdvReac Type Severity Reaction Status Date / Time Latex, Natural Rubber Allergy Mild Rash Verified 01/16/17 16:58 acetaminophen [From Vicodin] Allergy Hives Verified 01/16/17 16:58 hydrocodone bitartrate * Allergy Hives Verified 01/16/17 16:58 [From Vicodin] Penicillins Allergy Rash Verified 01/16/17 16:58 tramadol Allergy Rash Verified 01/16/17 16:58 adhesive AdvReac Intermediate chemical Verified 01/16/17 16:58 logan haloperidol [From Haldol] AdvReac Unknown Hallucinati Verified 01/16/17 16:58 ons iodine AdvReac Unknown Rash Verified 01/16/17 16:58 latex AdvReac Unknown Respiratory Verified 12/02/16 21:42 lamotrigine [From Lamictal] AdvReac Rash Verified 01/16/17 16:58 varenicline tartrate * AdvReac Hallucinati Verified 12/02/16 21:42 [From Chantix] ons steriods AdvReac Intermediate Unknown Uncoded 12/02/16 21:42 - Social History Does the pt smoke?: Yes Smoking Status: Current every day smoker Does the pt drink ETOH?: Yes Does the pt have substance abuse?: Yes - Immunizations Immunizations are current?: Yes - POLST Patient has POLST: No PD ED PE NORMAL - Vitals Vital signs reviewed: Yes - General General: Alert and oriented X 3, No acute distress - HEENT HEENT: PERRL, EOMI - Neck Neck: Supple, no meningeal sign, No bony TTP - Cardiac Cardiac: RRR, No murmur - Respiratory Respiratory: No respiratory distress, Clear bilaterally - Abdomen Abdomen: Soft, Non tender - Extremities Extremities: No deformity, No tenderness to palpate, Normal ROM s pain - Neuro Neuro: Alert and oriented X 3, frit mixer and burner 2-12 intact, No motor deficit, No sensory deficit, Normal speech - Psych Psych: Normal mood, Normal affect Results - Vitals Vitals: Vital Signs - 24 hr 01/16/17 16:35 Temperature 36.5 C Heart Rate 93 Respiratory 18 Rate Blood Pressure 127/71 O2 Saturation 97 Oxygen O2 Source Room air - Labs Labs: Laboratory Tests 01/16/17 01/16/17 16:53 16:53 WBC 8.9 RBC 5.20 Hgb 15.5 Hct 45.2 MCV 86.8 MCH 29.8 MCHC 34.3 RDW 14.7 Plt Count 232 MPV 7.1 L Neut # 5.4 Lymph # 2.7 [place] # 0.5 Eos # 0.3 Baso # 0.1 Absolute Nucleated RBC 0.00 Nucleated RBCs 0.0 Sodium 133 L Potassium 3.5 Chloride 104 Carbon Dioxide 19 L Anion Gap 10.0 BUN 6 Creatinine 0.6 Estimated GFR (MDRD) 114 Glucose 302 H Calcium 9.1 Total Bilirubin 0.3 AST 14 ALT 14 Alkaline Phosphatase 76 Total Protein 7.6 Albumin 4.2 Globulin 3.4 Albumin/Globulin Ratio 1.2 Lipase 25 PD MEDICAL DECISION MAKING - ED course ED course: 36-year-old woman with an exacerbation of seizures versus pseudoseizures. She complains of body wide pain. Her examination is unremarkable, and her labs are basically normal for her with baseline hyponatremia. She was administered IM Toradol and Ativan here. Departure - Departure Disposition: 01 Home, Self Care Clinical Impression: Seizure Condition: Stable Record reviewed to determine appropriate education?: Yes Instructions: ED Seizure Recurrent Prescriptions: Lorazepam [Ativan] 1 mg PO TID PRN #5 tablet PRN Reason: Anxiety Comments: Follow-up with your neurologist as soon as possible. Return if worse.
[2017-01-16] MEDS ORDERED: LORazepam 2 MG/ML SYRINGE ONE (16:53)
[2017-01-16] MEDS ORDERED: KETOROLAC 60 MG/2 ML VIAL ONE (16:54)
[2017-01-16 16:59] LABS: BASOPHILS # (AUTO) 0.1 10^3/uL (0.0-0.1); BASOPHILS % (AUTO) 0.8 %; EOSINOPHILS # (AUTO) 0.3 10^3/uL (0.0-0.7); EOSINOPHILS % (AUTO) 2.8 %; HCT - HEMATOCRIT 45.2 % (37.0-47.0); HGB - HEMOGLOBIN 15.5 g/dL (12.0-16.0); LYMPHOCYTES # (AUTO) 2.7 10^3/uL (1.5-3.5); LYMPHOCYTES % (AUTO) 30.2 %; MEAN CORPUSCULAR HEMOGLOBIN 29.8 pg (27.0-31.0); MEAN CORPUSCULAR HGB CONC 34.3 g/dL (32.0-36.0); MEAN CORPUSCULAR VOLUME 86.8 fL (81.0-99.0); MEAN PLATELET VOLUME 7.1 fL (7.9-10.8); MONOCYTES # (AUTO) 0.5 10^3/uL (0.0-1.0); MONOCYTES % (AUTO) 5.5 %; NEUTROPHILS # (AUTO) 5.4 10^3/uL (1.5-6.6); NEUTROPHILS % (AUTO) 60.7 %; RED CELL DISTRIBUTION WIDTH 14.7 % (12.0-15.0); UNCORRECTED WHITE BLOOD COUNT 8.9 x10^3/uL; WHITE BLOOD COUNT 8.9 x10^3/uL (4.8-10.8)
[2017-01-16 17:12] LABS: ALBUMIN/GLOBULIN RATIO 1.2 (1.0-2.2); BILIRUBIN,TOTAL 0.3 mg/dL (0.2-1.0); CALCIUM 9.1 mg/dL (8.5-10.3); CREATININE 0.6 mg/dL (0.4-1.0); POTASSIUM 3.5 mmol/L (3.5-5.0); TOTAL PROTEIN 7.6 g/dL (6.7-8.2)
[2017-01-16 17:45] VITALS: BP 130/63
== END 2017-01-16 18:12 | disposition home or self-care (01) ==
LOC: EDUNIT# → ED 16:34
DX: G40.909 Epilepsy, unspecified, not intractable, without status epilepticus (principal); E78.00 Pure hypercholesterolemia, unspecified; E11.42 Type 2 diabetes mellitus with diabetic polyneuropathy; F17.200 Nicotine dependence, unspecified, uncomplicated; Z79.84 Long term (current) use of oral hypoglycemic drugs
CPT/HCPCS: 36415; 80053; 83690; 85025; 96372; 99283; 99284; J2060

== ENCOUNTER 2017-01-20 13:10 | Outpatient (CLI) | payer MEDICARE, MEDICAID ==
[2017-01-20 14:00] LABS: BASOPHILS # (AUTO) 0.1 10^3/uL (0.0-0.1); BASOPHILS % (AUTO) 0.6 %; EOSINOPHILS # (AUTO) 0.2 10^3/uL (0.0-0.7); EOSINOPHILS % (AUTO) 1.8 %; HCT - HEMATOCRIT 42.5 % (37.0-47.0); HGB - HEMOGLOBIN 14.6 g/dL (12.0-16.0); LYMPHOCYTES # (AUTO) 2.5 10^3/uL (1.5-3.5); LYMPHOCYTES % (AUTO) 22.3 %; MEAN CORPUSCULAR HEMOGLOBIN 29.4 pg (27.0-31.0); MEAN CORPUSCULAR HGB CONC 34.4 g/dL (32.0-36.0); MEAN CORPUSCULAR VOLUME 85.3 fL (81.0-99.0); MEAN PLATELET VOLUME 7.4 fL (7.9-10.8); MONOCYTES # (AUTO) 0.6 10^3/uL (0.0-1.0); MONOCYTES % (AUTO) 4.9 %; NEUTROPHILS # (AUTO) 7.9 10^3/uL (1.5-6.6); NEUTROPHILS % (AUTO) 70.4 %; NUCLEATED RED BLOOD CELLS AUTO 0.1 /100WBC; RED BLOOD COUNT 4.98 10^6/uL (4.20-5.40); RED CELL DISTRIBUTION WIDTH 14.9 % (12.0-15.0); UNCORRECTED WHITE BLOOD COUNT 11.3 x10^3/uL; WHITE BLOOD COUNT 11.3 x10^3/uL (4.8-10.8)
== END 2017-01-20 13:11 | disposition home or self-care (01) ==
LOC: LAB 13:10
PROVIDERS: ATTEND Psychiatry & Neurology Psychiatry
DX: Z79.899 Other long term (current) drug therapy (principal)
CPT/HCPCS: 36415; 85025

== ENCOUNTER 2017-01-28 10:18 | Outpatient (CLI) | payer MEDICARE, MEDICAID ==
[2017-01-28 10:44] LABS: BASOPHILS # (AUTO) 0.1 10^3/uL (0.0-0.1); EOSINOPHILS # (AUTO) 0.1 10^3/uL (0.0-0.7); EOSINOPHILS % (AUTO) 1.4 %; HGB - HEMOGLOBIN 14.9 g/dL (12.0-16.0); LYMPHOCYTES # (AUTO) 2.4 10^3/uL (1.5-3.5); LYMPHOCYTES % (AUTO) 23.7 %; MEAN CORPUSCULAR HEMOGLOBIN 30.3 pg (27.0-31.0); MEAN CORPUSCULAR HGB CONC 34.8 g/dL (32.0-36.0); MEAN PLATELET VOLUME 6.9 fL (7.9-10.8); MONOCYTES # (AUTO) 0.6 10^3/uL (0.0-1.0); MONOCYTES % (AUTO) 5.5 %; NEUTROPHILS % (AUTO) 68.4 %; RED BLOOD COUNT 4.94 10^6/uL (4.20-5.40); RED CELL DISTRIBUTION WIDTH 15.2 % (12.0-15.0); UNCORRECTED WHITE BLOOD COUNT 10.3 x10^3/uL; WHITE BLOOD COUNT 10.3 x10^3/uL (4.8-10.8)
[2017-01-28 11:14] LABS: HEMOGLOBIN A1C 1.59 g/dL
== END 2017-01-28 10:19 | disposition home or self-care (01) ==
LOC: LAB 10:18
PROVIDERS: ATTEND Psychiatry & Neurology Psychiatry
DX: Z79.899 Other long term (current) drug therapy (principal); E11.9 Type 2 diabetes mellitus without complications
CPT/HCPCS: 36415; 83036; 85025

== ENCOUNTER 2017-02-03 13:55 | Outpatient (CLI) | payer MEDICARE, MEDICAID ==
[2017-02-03 14:17] LABS: BASOPHILS # (AUTO) 0.1 10^3/uL (0.0-0.1); BASOPHILS % (AUTO) 1.2 %; EOSINOPHILS % (AUTO) 0.7 %; HCT - HEMATOCRIT 43.9 % (37.0-47.0); HGB - HEMOGLOBIN 15.2 g/dL (12.0-16.0); LYMPHOCYTES # (AUTO) 2.3 10^3/uL (1.5-3.5); LYMPHOCYTES % (AUTO) 34.9 %; MEAN CORPUSCULAR HGB CONC 34.5 g/dL (32.0-36.0); MEAN CORPUSCULAR VOLUME 86.9 fL (81.0-99.0); MEAN PLATELET VOLUME 6.9 fL (7.9-10.8); MONOCYTES # (AUTO) 0.5 10^3/uL (0.0-1.0); MONOCYTES % (AUTO) 6.8 %; NEUTROPHILS # (AUTO) 3.7 10^3/uL (1.5-6.6); NEUTROPHILS % (AUTO) 56.4 %; NUCLEATED RED BLOOD CELLS AUTO 0.1 /100WBC; RED BLOOD COUNT 5.05 10^6/uL (4.20-5.40); RED CELL DISTRIBUTION WIDTH 15.1 % (12.0-15.0); UNCORRECTED WHITE BLOOD COUNT 6.6 x10^3/uL; WHITE BLOOD COUNT 6.6 x10^3/uL (4.8-10.8)
== END 2017-02-03 13:56 | disposition home or self-care (01) ==
LOC: LAB 13:55
PROVIDERS: ATTEND Psychiatry & Neurology Psychiatry
DX: Z79.899 Other long term (current) drug therapy (principal)
CPT/HCPCS: 36415; 85025

== ENCOUNTER 2017-02-06 09:45 | Emergency (ER) | payer MEDICARE, MEDICAID ==
[2017-02-06] MEDS ORDERED: oxyCODONE 5 MG TABLET PO STA (10:33)
[2017-02-06 10:45] LABS: BASOPHILS # (AUTO) 0.1 10^3/uL (0.0-0.1); BASOPHILS % (AUTO) 1.2 %; EOSINOPHILS % (AUTO) 0.7 %; HCT - HEMATOCRIT 46.7 % (37.0-47.0); HGB - HEMOGLOBIN 16.1 g/dL (12.0-16.0); LYMPHOCYTES # (AUTO) 2.8 10^3/uL (1.5-3.5); MEAN CORPUSCULAR HEMOGLOBIN 30.4 pg (27.0-31.0); MEAN CORPUSCULAR HGB CONC 34.5 g/dL (32.0-36.0); MEAN PLATELET VOLUME 7.3 fL (7.9-10.8); MONOCYTES # (AUTO) 0.5 10^3/uL (0.0-1.0); MONOCYTES % (AUTO) 6.2 %; NEUTROPHILS # (AUTO) 4.1 10^3/uL (1.5-6.6); NEUTROPHILS % (AUTO) 54.9 %; NUCLEATED RED BLOOD CELLS AUTO 0.1 /100WBC; RED BLOOD COUNT 5.31 10^6/uL (4.20-5.40); RED CELL DISTRIBUTION WIDTH 15.1 % (12.0-15.0); UNCORRECTED WHITE BLOOD COUNT 7.5 x10^3/uL; WHITE BLOOD COUNT 7.5 x10^3/uL (4.8-10.8)
[2017-02-06] MEDS ORDERED: oxyCODONE 5 MG TABLET ONE (10:45)
[2017-02-06] MEDS: traZODone 50 MG TABLET PO STA ×2 (10:46→10:49)
[2017-02-06 11:04] LABS: BUN - BLOOD UREA NITROGEN < 5 mg/dL (6-20); CALCIUM 9.2 mg/dL (8.5-10.3); CARBON DIOXIDE - CO2 24 mmol/L (21-32); CHLORIDE 97 mmol/L (101-111); CREATININE 0.5 mg/dL (0.4-1.0); GFR - MDRD 141 (>89); GLUCOSE 293 mg/dL (70-100); POTASSIUM 3.4 mmol/L (3.5-5.0); SODIUM 132 mmol/L (135-145)
--- NOTE | 2017-02-06 12:04 | ED Physician Documentation ---
PD HPI SEIZURE - Stated complaint Stated Complaint: SEIZURES - Chief complaint Chief Complaint: Neuro - History obtained from History obtained from: Patient, Family (sister) - History of Present Illness Witnessed: Witnessed Number of seizures: Multiple, Recovered between seizure Description of seizure activity: Generalized, Incontinent Injury during seizure: None Contributing factors: Sleep deprivation Similar symptoms before: Diagnosis (History of seizures, as well as pseudoseizures.) - Additional information Additional information: The patient is a 36-year-old female who is well known to staff in the emergency department because of her frequent emergency department visits. She presents today complaining of seizures that have occurred through the night. Her sister who accompanies her has witnessed the seizures, and describes them as generalized shaking that lasted for one to 2 minutes per spore resolving spontaneously. The patient reports urinary incontinence. She denies any injuries. The dose of her antiseizure medication was increased about one month ago by her neurologist. She has not missed any doses. She does report sleep deprivation since running out of trazodone which she takes at night to help her sleep. She reportedly misplaced her trazodone 2 days ago, and reports that Medicaid will not pay for refill until her next refill is due next week. She denies fever, cough, vomiting, or dysuria. She does report nausea and mild generalized headache. Review of Systems Constitutional: denies: Fever Eyes: denies: Decreased vision Ears: denies: Tinnitus/ringing Nose: denies: Congestion Throat: denies: Sore throat Cardiac: denies: Chest pain / pressure Respiratory: denies: Dyspnea, Cough GI: reports: Nausea. denies: Abdominal Pain, Vomiting : denies: Dysuria Musculoskeletal: denies: Back pain, Extremity swelling Neurologic: reports: Seizure, Headache. denies: Focal weakness, Numbness PD PAST MEDICAL HISTORY - Past Medical History Past Medical History: Yes Cardiovascular: Hypertension, High cholesterol Respiratory: Asthma, Sleep apnea Neuro: Headache/migraine, Peripheral neuropathy, Seizure disorder Endocrine/Autoimmune: Type 2 diabetes GI: GERD, Ulcers, Chronic diarrhea, Other LUBRICATING ENGINEER: None : Incontinence HEENT: None Psych: Anxiety, Bipolar disorder, Schizophrenia, ADD/ADHD, Post traumatic stress disorder, Obsessive compulsive disorder Musculoskeletal: Osteoarthritis, Osteoporosis Derm: Other drug resistant infections - Past Surgical History Past Surgical History: Yes General: Cholecystectomy /LUBRICATING ENGINEER: Tubal ligation, Other HEENT: Tonsil/Adenoidectomy - Present Medications Home Medications: Ambulatory Orders Medication Instructions Recorded Confirmed Baclofen 10 mg PO QID PRN 10/31/16 02/06/17 Clonazepam 1 mg PO DAILY PRN 10/31/16 02/06/17 Insulin Aspart (Vial) [NovoLOG 1 - 10 unit SUBQ .SLIDINGSCALE 10/31/16 02/06/17 (VIAL FOR ED USE)] Insulin Regular, Human [Humulin R 25 units SUBQ BID 10/31/16 02/06/17 U-500] Metformin HCl [Glucophage Xr] 500 mg PO BIDWM 10/31/16 02/06/17 Zonisamide [Zonegran] 200 mg PO TID 12/02/16 02/06/17 Lorazepam [Ativan] 1 mg PO TID PRN #5 tablet 01/16/17 02/06/17 Trazodone HCl 150 mg PO QPM #20 tablet 02/06/17 - Allergies Allergies/Adverse Reactions: Allergies Allergy/AdvReac Type Severity Reaction Status Date / Time Latex, Natural Rubber Allergy Mild Rash Verified 01/16/17 16:58 acetaminophen [From Vicodin] Allergy Hives Verified 01/16/17 16:58 hydrocodone bitartrate * Allergy Hives Verified 01/16/17 16:58 [From Vicodin] Penicillins Allergy Rash Verified 01/16/17 16:58 tramadol Allergy Rash Verified 01/16/17 16:58 adhesive AdvReac Intermediate chemical Verified 01/16/17 16:58 logan haloperidol [From Haldol] AdvReac Unknown Hallucinati Verified 01/16/17 16:58 ons iodine AdvReac Unknown Rash Verified 01/16/17 16:58 latex AdvReac Unknown Respiratory Verified 12/02/16 21:42 lamotrigine [From Lamictal] AdvReac Rash Verified 01/16/17 16:58 varenicline tartrate * AdvReac Hallucinati Verified 12/02/16 21:42 [From Chantix] ons steriods AdvReac Intermediate Unknown Uncoded 12/02/16 21:42 - Social History Does the pt smoke?: Yes Smoking Status: Current every day smoker Does the pt drink ETOH?: Yes Does the pt have substance abuse?: Yes - Immunizations Immunizations are current?: Yes - POLST Patient has POLST: No PD ED PE NORMAL - Vitals Vital signs reviewed: Yes (hypertensive) - General General: Alert and oriented X 3, Well developed/nourished - HEENT HEENT: Atraumatic, PERRL, EOMI, Ears normal, Pharynx benign, Other (Faint bite lizeth on the left side of the tongue.) - Neck Neck: Supple, no meningeal sign, No adenopathy, No JVD - Cardiac Cardiac: RRR, No murmur - Respiratory Respiratory: No respiratory distress, Clear bilaterally - Abdomen Abdomen: Soft, Non tender - Back Back: No CVA TTP - Derm Derm: No rash - Extremities Extremities: No edema, No calf tenderness / cord - Neuro Neuro: Alert and oriented X 3, No motor deficit, No sensory deficit, Normal speech Results - Vitals Vitals: Oxygen O2 Source Room air - Labs Labs: Laboratory Tests 02/06/17 02/06/17 02/06/17 10:00 10:00 10:02 WBC 7.5 RBC 5.31 Hgb 16.1 H Hct 46.7 MCV 88.0 MCH 30.4 MCHC 34.5 RDW 15.1 H Plt Count 244 MPV 7.3 L Neut # 4.1 Lymph # 2.8 [place] # 0.5 Eos # 0.0 Baso # 0.1 Absolute Nucleated RBC 0.01 Nucleated RBCs 0.1 Sodium 132 L Potassium 3.4 L Chloride 97 L Carbon Dioxide 24 Anion Gap 11.0 BUN < 5 L Creatinine 0.5 Estimated GFR (MDRD) 141 Glucose 293 H POC Whole Bld Glucose 295 H Calcium 9.2 PD MEDICAL DECISION MAKING - ED course Complexity details: reviewed old records, reviewed results, re-evaluated patient , considered differential, d/w patient, d/w family ED course: The patient's presentation is consistent with seizure. It is likely that sleep deprivation is a contributing factor. Her presentation does not suggest meningitis or intracranial hemorrhage. Her blood sugar is moderately elevated at 293. Treatment in the emergency department included administration of trazodone 100 mg orally, and oxycodone 5 mg orally. Her headache markedly improved, and she began to exhibit sleepiness. She was discharged in the accompaniment of her sister, with prescription for trazodone at 150 mg daily at bedtime. I discussed with her potentially worrisome signs or symptoms that should prompt reevaluation in the emergency department. Departure - Departure Disposition: Home, Self Care Clinical Impression: Seizure, Headache Hyperglycemia due to type 2 diabetes mellitus Qualifiers: Diabetes mellitus halfway insulin use: with superintendent terminal use Qualified Code(s): E11.65 - Type 2 diabetes mellitus with hyperglycemia Condition: Stable Instructions: ED Seizure Recurrent, ED Cephalgia Unspecified Follow-Up: Lorna Mulligan MD [Primary Care Provider] - Prescriptions: Trazodone HCl 150 mg PO QPM #20 tablet Comments: 1. Continue your seizure medication as previously prescribed. 2. Take trazodone as prescribed at night to help with sleep. 3. Follow-up with your primary physician as planned. 4. Return to the emergency department if you develop persistent or increasing seizures, increasing headache, or otherwise worsening symptoms. Discharge Date/Time: 02/06/17 12:09
[2017-02-06 12:09] VITALS: BP 127/82
== END 2017-02-06 12:09 | disposition home or self-care (01) ==
LOC: ED 09:45
DX: E11.65 Type 2 diabetes mellitus with hyperglycemia (principal); E11.42 Type 2 diabetes mellitus with diabetic polyneuropathy; Z79.4 Long term (current) use of insulin; Z79.84 Long term (current) use of oral hypoglycemic drugs; R56.9 Unspecified convulsions; R51 Headache; I10 Essential (primary) hypertension; E78.00 Pure hypercholesterolemia, unspecified; J45.909 Unspecified asthma, uncomplicated; G47.30 Sleep apnea, unspecified; K21.9 Gastro-esophageal reflux disease without esophagitis; Z87.11 Personal history of peptic ulcer disease; M19.90 Unspecified osteoarthritis, unspecified site; F17.200 Nicotine dependence, unspecified, uncomplicated
CPT/HCPCS: 36415; 80048; 85025; 99283; A9270

== ENCOUNTER 2017-02-11 14:48 | Outpatient (CLI) | payer MEDICARE, MEDICAID ==
[2017-02-11 15:18] LABS: BASOPHILS # (AUTO) 0.1 10^3/uL (0.0-0.1); BASOPHILS % (AUTO) 1.9 %; EOSINOPHILS % (AUTO) 0.4 %; HCT - HEMATOCRIT 43.8 % (37.0-47.0); HGB - HEMOGLOBIN 15.4 g/dL (12.0-16.0); LYMPHOCYTES # (AUTO) 2.2 10^3/uL (1.5-3.5); LYMPHOCYTES % (AUTO) 32.7 %; MEAN CORPUSCULAR HGB CONC 35.2 g/dL (32.0-36.0); MEAN PLATELET VOLUME 6.9 fL (7.9-10.8); MONOCYTES # (AUTO) 0.5 10^3/uL (0.0-1.0); MONOCYTES % (AUTO) 8.1 %; NEUTROPHILS # (AUTO) 3.9 10^3/uL (1.5-6.6); NEUTROPHILS % (AUTO) 56.9 %; NUCLEATED RED BLOOD CELLS AUTO 0.2 /100WBC; RED BLOOD COUNT 4.98 10^6/uL (4.20-5.40); UNCORRECTED WHITE BLOOD COUNT 6.8 x10^3/uL; WHITE BLOOD COUNT 6.8 x10^3/uL (4.8-10.8)
== END 2017-02-11 14:49 | disposition home or self-care (01) ==
LOC: LAB 14:48
PROVIDERS: ATTEND Psychiatry & Neurology Psychiatry
DX: Z79.899 Other long term (current) drug therapy (principal)
CPT/HCPCS: 36415; 80306; 85025

== ENCOUNTER 2017-02-12 08:29 | Outpatient (CLI) | payer MEDICARE, MEDICAID | END 2017-02-12 08:30 | disposition home or self-care (01) | LOC: LAB.R 08:29 | PROVIDERS: ATTEND Psychiatry & Neurology Psychiatry | DX: Z79.899 Other long term (current) drug therapy (principal) | CPT/HCPCS: 80306 ==

== ENCOUNTER 2017-02-13 14:56 | Outpatient (CLI) | payer MEDICARE, MEDICAID | END 2017-02-13 14:57 | disposition critical access hospital (66) | LOC: EMS 14:56 | PROVIDERS: ATTEND Surgery | DX: R56.9 Unspecified convulsions (principal); M54.2 Cervicalgia; M54.9 Dorsalgia, unspecified | CPT/HCPCS: A0425; A0429 ==

== ENCOUNTER 2017-02-13 15:00 | Emergency (ER) | payer MEDICARE, MEDICAID ==
[2017-02-13 15:14] VITALS: BP 97/55
[2017-02-13] MEDS ORDERED: SODIUM CHLORIDE 0.9% 1,000 ML IV ONE (15:32)
[2017-02-13] MEDS ORDERED: LORazepam 2 MG/ML SYRINGE IVP STA (15:32)
--- NOTE | 2017-02-13 15:42 | ED Physician Documentation ---
History of Present Illness - Stated complaint Stated Complaint: SZ - Chief complaint Chief Complaint: Neuro - Additonal information Additional information: hx from pt 36 female diabetic and hx seizures recently had her seizure meds increased recently seen in ER for seizures states she had six seizures today which is unusual for her hit her head - has head and neck pain also noted to have low grade fever in ER and states she is coughing brown sputum ,vomiting, and having urinary incont Review of Systems Constitutional: reports: Fever (low grade in ER). denies: Chills Ears: denies: Drainage/discharge Nose: denies: Epistaxis Respiratory: reports: Cough GI: reports: Vomiting. denies: Abdominal Pain, Diarrhea : denies: Now EGA (pt denies) Musculoskeletal: reports: Neck pain (after fall - will image) Neurologic: reports: Generalized weakness, Seizure (hx seizure disorder, 6 today ), Headache, Head injury Endocrine: denies: Easy bruising / bleeding Immunocompromised: denies: Immunocompromised PD PAST MEDICAL HISTORY - Past Medical History Cardiovascular: Hypertension, High cholesterol Respiratory: Asthma, Sleep apnea Neuro: Headache/migraine, Peripheral neuropathy, Seizure disorder Endocrine/Autoimmune: Type 2 diabetes GI: GERD, Ulcers, Chronic diarrhea, Other ASSIGNMENT AGENT: None : Incontinence HEENT: None Psych: Anxiety, Bipolar disorder, Schizophrenia, ADD/ADHD, Post traumatic stress disorder, Obsessive compulsive disorder Musculoskeletal: Osteoarthritis, Osteoporosis Derm: Other drug resistant infections - Past Surgical History Past Surgical History: Yes General: Cholecystectomy /ASSIGNMENT AGENT: Tubal ligation, Other HEENT: Tonsil/Adenoidectomy - Present Medications Home Medications: Ambulatory Orders Medication Instructions Recorded Confirmed Baclofen 10 mg PO QID PRN 10/31/16 02/06/17 Clonazepam 1 mg PO DAILY PRN 10/31/16 02/06/17 Insulin Aspart (Vial) [NovoLOG 1 - 10 unit SUBQ .SLIDINGSCALE 10/31/16 02/06/17 (VIAL FOR ED USE)] Insulin Regular, Human [Humulin R 25 units SUBQ BID 10/31/16 02/06/17 U-500] Metformin HCl [Glucophage Xr] 500 mg PO BIDWM 10/31/16 02/06/17 Zonisamide [Zonegran] 200 mg PO TID 12/02/16 02/06/17 Lorazepam [Ativan] 1 mg PO TID PRN #5 tablet 01/16/17 02/06/17 Trazodone HCl 150 mg PO QPM #20 tablet 02/06/17 Azithromycin [Zithromax] 250 mg PO DAILY #4 tablet 02/13/17 - Allergies Allergies/Adverse Reactions: Allergies Allergy/AdvReac Type Severity Reaction Status Date / Time Latex, Natural Rubber Allergy Mild Rash Verified 01/16/17 16:58 acetaminophen [From Vicodin] Allergy Hives Verified 01/16/17 16:58 hydrocodone bitartrate * Allergy Hives Verified 01/16/17 16:58 [From Vicodin] Penicillins Allergy Rash Verified 01/16/17 16:58 tramadol Allergy Rash Verified 01/16/17 16:58 adhesive AdvReac Intermediate chemical Verified 01/16/17 16:58 logan haloperidol [From Haldol] AdvReac Unknown Hallucinati Verified 01/16/17 16:58 ons iodine AdvReac Unknown Rash Verified 01/16/17 16:58 latex AdvReac Unknown Respiratory Verified 12/02/16 21:42 lamotrigine [From Lamictal] AdvReac Rash Verified 01/16/17 16:58 varenicline tartrate * AdvReac Hallucinati Verified 12/02/16 21:42 [From Chantix] ons steriods AdvReac Intermediate Unknown Uncoded 12/02/16 21:42 - Social History Does the pt smoke?: Yes Smoking Status: Current every day smoker Does the pt drink ETOH?: Yes Does the pt have substance abuse?: Yes - Immunizations Immunizations are current?: Yes - POLST Patient has POLST: No PD ED PE NORMAL - Vitals Vital signs reviewed: Yes (borderling temp, little tachy, little hypotensive, sat 93%) - General General: Alert and oriented X 3 - HEENT HEENT: PERRL - Neck Neck: No: No bony TTP (+ TTP will image) - Cardiac Cardiac: RRR - Respiratory Respiratory: Other (wheeze on ronchi on R) - Abdomen Abdomen: Soft, Other (mild LUQ TTP s peritoneal signs) - Derm Derm: Normal color - Extremities Extremities: Normal ROM s pain - Neuro Neuro: Alert and oriented X 3, No motor deficit - Psych Psych: Normal mood Results - Vitals Vitals: Vital Signs - 24 hr 02/13/17 15:13 Temperature 37.7 C H Heart Rate 105 H Respiratory 14 Rate Blood Pressure 97/55 L O2 Saturation 93 Oxygen O2 Source Room air - Labs Labs: Laboratory Tests 02/13/17 02/13/17 02/13/17 15:45 15:45 15:45 WBC 8.2 RBC 4.80 Hgb 14.8 Hct 42.7 MCV 89.0 MCH 30.8 MCHC 34.6 RDW 14.8 Plt Count 211 MPV 7.0 L Neut # 5.5 Lymph # 2.1 [place] # 0.6 Eos # 0.0 Baso # 0.0 Absolute Nucleated RBC 0.01 Nucleated RBCs 0.1 Sodium 133 L Potassium 3.2 L Chloride 101 Carbon Dioxide 20 L Anion Gap 12.0 BUN 6 Creatinine 0.5 Estimated GFR (MDRD) 141 Glucose 280 H Lactic Acid 3.2 H* Calcium 8.9 HCG, Quant 02/13/17 15:45 WBC RBC Hgb Hct MCV MCH MCHC RDW Plt Count MPV Neut # Lymph # [place] # Eos # Baso # Absolute Nucleated RBC Nucleated RBCs Sodium Potassium Chloride Carbon Dioxide Anion Gap BUN Creatinine Estimated GFR (MDRD) Glucose Lactic Acid Calcium HCG, Quant < 0.60 - Rads (name of study) CXR Radiology: See rad report (NACPD) PD MEDICAL DECISION MAKING - ED course ED course: pts head and neck pain resolved s intervention so CT scans cancelled recommended pt be admitted for presumed sepsis given high lactate but she feels better and refuses explained to pt the risk for worsening infection, organ damage, even and she still chooses to go home wrote rx for zmax and encouraged pt to return if worse CXR neg but ronchi on R so presume pna is the source urine did not get pushed so still pending Departure - Departure Disposition: 07 Against Medical Advice Clinical Impression: Sepsis, Pneumonia, Diabetes mellitus out of control Condition: Good Instructions: ED Bacteremia Rule Out, ED Pneumonia Adult Prescriptions: Azithromycin [Zithromax] 250 mg PO DAILY #4 tablet Comments: As we discussed I am concerned you have a serious infection called sepsis and I recommend that you stay in the hospital for antibiotics but you have chosen to leave against medical advise. I have warned you that this could result in worsening infection, organ damage, loss or present life style and even and you still want to go home Take the antibiotic I wrote for Return f you change your mind and want to continue your medical care Continue your seizure medications and don't drive
[2017-02-13] MEDS ORDERED: LORazepam 2 MG/ML SYRINGE ONE (15:58)
[2017-02-13 16:00] LABS: BASOPHILS % (AUTO) 0.5 %; EOSINOPHILS % (AUTO) 0.1 %; HCT - HEMATOCRIT 42.7 % (37.0-47.0); HGB - HEMOGLOBIN 14.8 g/dL (12.0-16.0); LYMPHOCYTES # (AUTO) 2.1 10^3/uL (1.5-3.5); LYMPHOCYTES % (AUTO) 25.8 %; MEAN CORPUSCULAR HEMOGLOBIN 30.8 pg (27.0-31.0); MEAN CORPUSCULAR HGB CONC 34.6 g/dL (32.0-36.0); MONOCYTES # (AUTO) 0.6 10^3/uL (0.0-1.0); NEUTROPHILS # (AUTO) 5.5 10^3/uL (1.5-6.6); NEUTROPHILS % (AUTO) 66.6 %; NUCLEATED RED BLOOD CELLS AUTO 0.1 /100WBC; RED CELL DISTRIBUTION WIDTH 14.8 % (12.0-15.0); UNCORRECTED WHITE BLOOD COUNT 8.2 x10^3/uL; WHITE BLOOD COUNT 8.2 x10^3/uL (4.8-10.8)
[2017-02-13 16:04] LABS: CALCIUM 8.9 mg/dL (8.5-10.3); CREATININE 0.5 mg/dL (0.4-1.0); POTASSIUM 3.2 mmol/L (3.5-5.0)
[2017-02-13] MEDS ORDERED: cefTRIAXone 1 GM in SODIUM CHLORIDE 0.9% MINIBAG 100 ML IV STA (16:18)
[2017-02-13] MEDS ORDERED: AZITHROMYCIN INJ 500 MG in SODIUM CHLORIDE 0.9% 250 ML IV STA (16:19)
--- NOTE | 2017-02-13 16:49 | XRAY Preliminary Report ---
Exam: XR Chest 2 View PA/LAT IMPRESSION: No acute cardiopulmonary disease seen. [facility] SITE ID: [id number]
--- NOTE | 2017-02-13 16:52 | XRAY Report ---
EXAM: CHEST RADIOGRAPHY EXAM DATE: 02/13/2017 04:04 PM. CLINICAL HISTORY: Low blood pressure hypoxic fever. COMPARISON: Chest 11/27/2016. TECHNIQUE: 2 views. FINDINGS: Lungs/Pleura: No focal opacities evident. No pleural effusion. No pneumothorax. Normal volumes. Mediastinum: Heart and mediastinal contours are unremarkable. IMPRESSION: No acute cardiopulmonary disease seen. [facility] Referring Provider Line: [phone] SITE ID: [id number]
[2017-02-13] MEDS ORDERED: cefTRIAXone 1 GM VIAL ONE (16:59)
[2017-02-13 18:01] LABS: BILIRUBIN,URINE NEGATIVE (NEGATIVE)
[2017-02-13 18:02] LABS: UA CHARGE (STRIP ONLY) YES; UR CULTURE IF IND NOT INDICATED
== END 2017-02-13 18:32 | disposition left against medical advice (07) ==
LOC: EDUNIT# → ED 15:00
DX: A41.9 Sepsis, unspecified organism (principal); J18.9 Pneumonia, unspecified organism; E11.42 Type 2 diabetes mellitus with diabetic polyneuropathy; E11.65 Type 2 diabetes mellitus with hyperglycemia; I10 Essential (primary) hypertension; E78.00 Pure hypercholesterolemia, unspecified; Z79.4 Long term (current) use of insulin; F17.200 Nicotine dependence, unspecified, uncomplicated
CPT/HCPCS: 36415; 71020; 80048; 80306; 81003; 83605; 84702; 85025; 87040; 96374; 96375; 99283; 99284; J2060; 81001; 87086

== ENCOUNTER 2017-02-14 14:17 | Emergency (ER) | payer MEDICARE, MEDICAID ==
[2017-02-14 14:28] VITALS: BP 118/78
[2017-02-14] MEDS ORDERED: HYDROmorphone 1 MG/ML CARPUJECT IM STA (14:54)
--- NOTE | 2017-02-14 14:54 | ED Physician Documentation ---
History of Present Illness - Stated complaint Stated Complaint: BACK PX, FEVER - Chief complaint Chief Complaint: Back Pain - History obtained from History obtained from: Patient - History of Present Illness Timing: Other (She was seen here yesterday after multiple seizures. She had a modestly low blood pressure and a septic workup was begun showing a lactic acidosis but no white count. She had a urinalysis that was positive only for glucose and a clear chest x-ray. She signed out AGAINST MEDICAL ADVICE, that I guess there was a persistent concern for sepsis. Last night she developed flank pain, left greater than right. She denies significant respiratory complaints, no cough or shortness of breath. She thinks she was febrile overnight but is not quite sure. She denies any urinary complaints but does feel like she is urinating less than normal despite drinking a lot of fluids. The urine may have had some foul smell to it but she does not have dysuria or frequency.) Review of Systems Constitutional: reports: Fever. 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 HELPER DESSERT: None : Incontinence HEENT: None Psych: Anxiety, Bipolar disorder, Schizophrenia, ADD/ADHD, Post traumatic stress disorder, Obsessive compulsive disorder Musculoskeletal: Osteoarthritis, Osteoporosis Derm: Other drug resistant infections - Past Surgical History Past Surgical History: Yes General: Cholecystectomy /COOK HELPER DESSERT: Tubal ligation, Other HEENT: Tonsil/Adenoidectomy - Present Medications Home Medications: Ambulatory Orders Medication Instructions Recorded Confirmed Baclofen 10 mg PO QID PRN 10/31/16 02/14/17 Clonazepam 1 mg PO DAILY PRN 10/31/16 02/14/17 Insulin Aspart (Vial) [NovoLOG 1 - 10 unit SUBQ .SLIDINGSCALE 10/31/16 02/14/17 (VIAL FOR ED USE)] Insulin Regular, Human [Humulin R 25 units SUBQ BID 10/31/16 02/14/17 U-500] Metformin HCl [Glucophage Xr] 500 mg PO BIDWM 10/31/16 02/14/17 Zonisamide [Zonegran] 200 mg PO TID 12/02/16 02/14/17 Lorazepam [Ativan] 1 mg PO TID PRN #5 tablet 01/16/17 02/14/17 Trazodone HCl 150 mg PO QPM #20 tablet 02/06/17 02/14/17 Azithromycin [Zithromax] 250 mg PO DAILY #4 tablet 02/13/17 02/14/17 Oxycodone HCl/Acetaminophen 1 - 2 tab PO Q4H PRN #5 tablet 02/14/17 [Percocet 5-325 mg Tablet] - Allergies Allergies/Adverse Reactions: Allergies Allergy/AdvReac Type Severity Reaction Status Date / Time Latex, Natural Rubber Allergy Mild Rash Verified 01/16/17 16:58 acetaminophen [From Vicodin] Allergy Hives Verified 01/16/17 16:58 hydrocodone bitartrate * Allergy Hives Verified 01/16/17 16:58 [From Vicodin] Penicillins Allergy Rash Verified 01/16/17 16:58 tramadol Allergy Rash Verified 01/16/17 16:58 adhesive AdvReac Intermediate chemical Verified 01/16/17 16:58 logan haloperidol [From Haldol] AdvReac Unknown Hallucinati Verified 01/16/17 16:58 ons iodine AdvReac Unknown Rash Verified 01/16/17 16:58 latex AdvReac Unknown Respiratory Verified 12/02/16 21:42 lamotrigine [From Lamictal] AdvReac Rash Verified 01/16/17 16:58 varenicline tartrate * AdvReac Hallucinati Verified 12/02/16 21:42 [From Chantix] ons steriods AdvReac Intermediate Unknown Uncoded 12/02/16 21:42 - Social History Does the pt smoke?: Yes Smoking Status: Current every day smoker Does the pt drink ETOH?: Yes Does the pt have substance abuse?: Yes - Immunizations Immunizations are current?: Yes - POLST Patient has POLST: No PD ED PE NORMAL - Vitals Vital signs reviewed: Yes - General General: Alert and oriented X 3, No acute distress - HEENT HEENT: PERRL, EOMI, Pharynx benign - Neck Neck: Supple, no meningeal sign, No bony TTP - Cardiac Cardiac: RRR, No murmur - Respiratory Respiratory: No respiratory distress, Other (Wheezy and rhonchorous) - Abdomen Abdomen: Soft, Non tender - Back Back: Other (Tender to both flanks, left greater than right) - Neuro Neuro: No motor deficit, No sensory deficit - Psych Psych: Normal mood, Normal affect Results - Vitals Vitals: Vital Signs - 24 hr 02/14/17 14:25 Temperature 36.4 C L Heart Rate 105 H Respiratory 16 Rate Blood Pressure 118/78 O2 Saturation 98 Oxygen O2 Source Room air - Labs Labs: Laboratory Tests 02/14/17 02/14/17 02/14/17 15:05 15:05 15:05 WBC 7.3 RBC 4.71 Hgb 14.6 Hct 41.4 MCV 88.0 MCH 31.0 MCHC 35.2 RDW 14.8 Plt Count 211 MPV 7.0 L Neut # 4.9 Lymph # 1.9 [place] # 0.4 Eos # 0.0 Baso # 0.1 Absolute Nucleated RBC 0.00 Nucleated RBCs 0.1 Sodium 131 L Potassium 3.4 L Chloride 100 L Carbon Dioxide 22 Anion Gap 9.0 BUN 7 Creatinine 0.6 Estimated GFR (MDRD) 114 Glucose 271 H Lactic Acid 1.7 Calcium 8.5 Urine Color Urine Clarity Urine pH Ur Specific [place] Urine Protein Urine Glucose (UA) Urine Ketones Urine Occult Blood Urine Nitrite Urine Bilirubin Urine Urobilinogen Ur Leukocyte Esterase Urine RBC Urine WBC Ur Squamous Epith Cells Amorphous Sediment Urine Bacteria Ur Microscopic Review Urine Culture Comments 02/14/17 15:31 WBC RBC Hgb Hct MCV MCH MCHC RDW Plt Count MPV Neut # Lymph # [place] # Eos # Baso # Absolute Nucleated RBC Nucleated RBCs Sodium Potassium Chloride Carbon Dioxide Anion Gap BUN Creatinine Estimated GFR (MDRD) Glucose Lactic Acid Calcium Urine Color DARK YELLOW Urine Clarity HAZY Urine pH 7.0 Ur Specific [place] 1.020 Urine Protein NEGATIVE Urine Glucose (UA) NEGATIVE Urine Ketones NEGATIVE Urine Occult Blood NEGATIVE Urine Nitrite NEGATIVE Urine Bilirubin NEGATIVE Urine Urobilinogen 0.2 (NORMAL) Ur Leukocyte Esterase NEGATIVE Urine RBC 0-5 Urine WBC 0-3 Ur Squamous Epith Cells FEW Squamous Amorphous Sediment Moderate Urine Bacteria None Seen Ur Microscopic Review INDICATED Urine Culture Comments NOT INDICATED PD MEDICAL DECISION MAKING - ED course ED course: She presents now with flank pain in the setting of a lactic acidosis yesterday, however the lactic acidosis could be explained by the seizure activity she would having. Her urinalysis was negative yesterday except for glucosuria. Lactate was rechecked and now normal, so I presume it was from the seizures yesterday or potentially from metformin. She does not have a white count and no source. Departure - Departure Disposition: 01 Home, Self Care Clinical Impression: Acute flank pain Condition: Stable Record reviewed to determine appropriate education?: Yes Instructions: ED Abdominal Pain Unkn Cause Prescriptions: Oxycodone HCl/Acetaminophen [Percocet 5-325 mg Tablet] 1 - 2 tab PO Q4H PRN #5 tablet PRN Reason: Pain Comments: Call your doctor to arrange a follow-up appointment, make the next available appointment. In the interim, return anytime if worse or if new symptoms develop. Discharge Date/Time: 02/14/17 15:30
[2017-02-14] MEDS ORDERED: HYDROmorphone 1 MG/ML CARPUJECT ONE (15:01)
[2017-02-14 15:17] LABS: BASOPHILS # (AUTO) 0.1 10^3/uL (0.0-0.1); BASOPHILS % (AUTO) 0.9 %; EOSINOPHILS % (AUTO) 0.1 %; HCT - HEMATOCRIT 41.4 % (37.0-47.0); HGB - HEMOGLOBIN 14.6 g/dL (12.0-16.0); LYMPHOCYTES # (AUTO) 1.9 10^3/uL (1.5-3.5); LYMPHOCYTES % (AUTO) 26.4 %; MEAN CORPUSCULAR HGB CONC 35.2 g/dL (32.0-36.0); MONOCYTES # (AUTO) 0.4 10^3/uL (0.0-1.0); NEUTROPHILS # (AUTO) 4.9 10^3/uL (1.5-6.6); NEUTROPHILS % (AUTO) 66.6 %; NUCLEATED RED BLOOD CELLS AUTO 0.1 /100WBC; RED BLOOD COUNT 4.71 10^6/uL (4.20-5.40); RED CELL DISTRIBUTION WIDTH 14.8 % (12.0-15.0); UNCORRECTED WHITE BLOOD COUNT 7.3 x10^3/uL; WHITE BLOOD COUNT 7.3 x10^3/uL (4.8-10.8)
[2017-02-14] MEDS ORDERED: ONDANSETRON ODT 4 MG TABLET TL STA (15:18)
[2017-02-14] MEDS ORDERED: ONDANSETRON ODT 4 MG TABLET ONE (15:29)
[2017-02-14 15:38] LABS: CALCIUM 8.5 mg/dL (8.5-10.3); CREATININE 0.6 mg/dL (0.4-1.0); POTASSIUM 3.4 mmol/L (3.5-5.0)
[2017-02-14 15:39] LABS: BILIRUBIN,URINE NEGATIVE (NEGATIVE)
[2017-02-14 15:43] LABS: UA w/ MICROSCOPIC CHARGE YES
[2017-02-14 15:47] LABS: UR CULTURE IF IND NOT INDICATED; WBC,URINE 0-3 /HPF (0-5)
[2017-02-14] MEDS ORDERED: VANCOMYCIN 1 GM VIAL ONE ×2 (18:52→19:24)
[2017-02-14] MEDS ORDERED: WATER FOR INJECTION,STERILE 40 ML ONE (18:55)
[2017-02-14] MEDS ORDERED: WATER FOR INJECTION,STERILE 20 ML ONE (19:24)
[2017-02-14] MEDS ORDERED: SODIUM CHLORIDE FLUSH 0.9% 10 ML SYRINGE IVP ONE (20:59)
== END 2017-02-14 15:30 | disposition home or self-care (01) ==
LOC: ED 14:17
DX: R10.32 Left lower quadrant pain (principal); I10 Essential (primary) hypertension; E11.42 Type 2 diabetes mellitus with diabetic polyneuropathy; Z79.4 Long term (current) use of insulin; Z79.84 Long term (current) use of oral hypoglycemic drugs; E78.00 Pure hypercholesterolemia, unspecified; J45.909 Unspecified asthma, uncomplicated; G47.30 Sleep apnea, unspecified; K21.9 Gastro-esophageal reflux disease without esophagitis; M19.90 Unspecified osteoarthritis, unspecified site; M81.0 Age-related osteoporosis without current pathological fracture; Z87.11 Personal history of peptic ulcer disease; F17.200 Nicotine dependence, unspecified, uncomplicated
CPT/HCPCS: 36415; 80048; 81001; 81003; 83605; 85025; 87086; 99283

== ENCOUNTER 2017-02-14 18:37 | Inpatient (IN) | payer MEDICARE, MEDICAID ==
[2017-02-14] MEDS ORDERED: VANCOMYCIN INJ 2 GM in SODIUM CHLORIDE 0.9% 500 ML IV STA (18:39)
--- NOTE | 2017-02-14 18:42 | ED Physician Documentation ---
History of Present Illness - Stated complaint Stated Complaint: JOYA PX - History obtained from History obtained from: Patient - History of Present Illness Timing: Other (See Dr. Seals's note from yesterday and mine from today. Briefly she was seen yesterday after seizure activity, had a temperature of 37.7 and noted to have an elevated lactate. Blood cultures were done and she was given Rocephin. She was seen again today and her lactate had normalized. However after discharge this time her blood culture came back positive for gram- positive cocci in clusters and she was called back for reevaluation and admission.) Review of Systems Constitutional: reports: Reviewed and negative Ears: reports: Reviewed and negative Nose: reports: Reviewed and negative Cardiac: reports: Reviewed and negative Respiratory: reports: Reviewed and negative PD PAST MEDICAL HISTORY - Past Medical History Cardiovascular: Hypertension, High cholesterol Respiratory: Asthma, Sleep apnea Neuro: Headache/migraine, Peripheral neuropathy, Seizure disorder Endocrine/Autoimmune: Type 2 diabetes GI: GERD, Ulcers, Chronic diarrhea, Other 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 MERCHANT: None : Incontinence HEENT: None Psych: Anxiety, Bipolar disorder, Schizophrenia, ADD/ADHD, Post traumatic stress disorder, Obsessive compulsive disorder Musculoskeletal: Osteoarthritis, Osteoporosis Derm: Other drug resistant infections - Past Surgical History Past Surgical History: Yes General: Cholecystectomy /DIAMOND MERCHANT: Tubal ligation, Other HEENT: Tonsil/Adenoidectomy - Present Medications Home Medications: Ambulatory Orders Medication Instructions Recorded Confirmed Baclofen 10 mg PO QID PRN 10/31/16 02/14/17 Clonazepam 1 mg PO DAILY PRN 10/31/16 02/14/17 Insulin Aspart (Vial) [NovoLOG 1 - 10 unit SUBQ .SLIDINGSCALE 10/31/16 02/14/17 (VIAL FOR ED USE)] Insulin Regular, Human [Humulin R 25 units SUBQ BID 10/31/16 02/14/17 U-500] Metformin HCl [Glucophage Xr] 500 mg PO BIDWM 10/31/16 02/14/17 Zonisamide [Zonegran] 200 mg PO TID 12/02/16 02/14/17 Lorazepam [Ativan] 1 mg PO TID PRN #5 tablet 01/16/17 02/14/17 Trazodone HCl 150 mg PO QPM #20 tablet 02/06/17 02/14/17 Azithromycin [Zithromax] 250 mg PO DAILY #4 tablet 02/13/17 02/14/17 Oxycodone HCl/Acetaminophen 1 - 2 tab PO Q4H PRN #5 tablet 02/14/17 [Percocet 5-325 mg Tablet] - Allergies Allergies/Adverse Reactions: Allergies Allergy/AdvReac Type Severity Reaction Status Date / Time Latex, Natural Rubber Allergy Mild Rash Verified 01/16/17 16:58 acetaminophen [From Vicodin] Allergy Hives Verified 01/16/17 16:58 hydrocodone bitartrate * Allergy Hives Verified 01/16/17 16:58 [From Vicodin] Penicillins Allergy Rash Verified 01/16/17 16:58 tramadol Allergy Rash Verified 01/16/17 16:58 adhesive AdvReac Intermediate chemical Verified 01/16/17 16:58 logan haloperidol [From Haldol] AdvReac Unknown Hallucinati Verified 01/16/17 16:58 ons iodine AdvReac Unknown Rash Verified 01/16/17 16:58 latex AdvReac Unknown Respiratory Verified 12/02/16 21:42 lamotrigine [From Lamictal] AdvReac Rash Verified 01/16/17 16:58 varenicline tartrate * AdvReac Hallucinati Verified 12/02/16 21:42 [From Chantix] ons steriods AdvReac Intermediate Unknown Uncoded 12/02/16 21:42 - Social History Does the pt smoke?: Yes Smoking Status: Current every day smoker Does the pt drink ETOH?: Yes Does the pt have substance abuse?: Yes - Immunizations Immunizations are current?: Yes - POLST Patient has POLST: No PD ED PE NORMAL - Vitals Vital signs reviewed: Yes - General General: Alert and oriented X 3, No acute distress - HEENT HEENT: PERRL, EOMI - Neck Neck: Supple, no meningeal sign, No bony TTP - Cardiac Cardiac: RRR, No murmur - Respiratory Respiratory: Other (Wheezy rhonchi throughout) - Abdomen Abdomen: Soft, Non tender - Back Back: No CVA TTP, No spinal TTP - Derm Derm: Normal color, Warm and dry - Extremities Extremities: No edema, No calf tenderness / cord - Neuro Neuro: Alert and oriented X 3, Normal speech - Psych Psych: Normal mood, Normal affect Results - Vitals Vitals: Vital Signs - 24 hr 02/14/17 18:43 Temperature 36.9 C Heart Rate 93 Respiratory 20 Rate Blood Pressure 125/88 H O2 Saturation 100 Oxygen O2 Source Room air PD MEDICAL DECISION MAKING - ED course ED course: 36-year-old woman with potential gram-positive sepsis versus contaminant. Blood cultures were repeated and she was put on vancomycin and I spoke with the hospitalist, Dr. Sharma for admission pending repeat blood cultures to piece together whether this is a contaminant or not at 7:42 PM. Departure - Departure Disposition: 66 [facility] DC/Xfer Clinical Impression: Gram positive septicemia Condition: Stable
[2017-02-14] MEDS ORDERED: BACLOFEN 10 MG TABLET PO PRN (20:01)
[2017-02-14] MEDS ORDERED: LORazepam 0.5 MG TABLET PO PRN (20:01)
[2017-02-14] MEDS ORDERED: clonazePAM 0.5 MG TABLET PO PRN (20:01)
[2017-02-14] MEDS ORDERED: SODIUM CHLORIDE FLUSH 0.9% 10 ML SYRINGE IVP PRN (20:02)
[2017-02-14] MEDS ORDERED: PROCHLORPERAZINE 10 MG/2 ML VIAL IVP PRN (20:02)
[2017-02-14] MEDS ORDERED: ZOLPIDEM 5 MG TABLET PO PRN (20:02)
[2017-02-14] MEDS ORDERED: ONDANSETRON 4 MG/2 ML VIAL IVP PRN (20:02)
[2017-02-14] MEDS ORDERED: ACETAMINOPHEN 325 MG TABLET PO PRN (20:02)
[2017-02-14] MEDS ORDERED: oxyCODONE 5 MG TABLET PO PRN (20:02)
[2017-02-14] MEDS ORDERED: oxyCOD/ACETAMIN 5 MG/325 MG TABLET PO STA (20:26)
[2017-02-14] MEDS ORDERED: traZODone 50 MG TABLET PO SCH (21:00)
--- NOTE | 2017-02-14 21:25 | ED Physician Documentation ---
ED Addendum - Addendum Addendum: 02/14/17 21:23 unscheduled return visit seen by me yesterday for seizures and noted to have low grade fever, hypotension , hypoxia and wup showed elev lactate so rec pt be admitted but she signed out ama now admitted for + blood cx (gram + so could be contaminate) chart accessed for follow up and educational purposes
[2017-02-14] MEDS: SODIUM CHLORIDE 0.9% 1,000 ML IV SCH (21:33)
[2017-02-14] MEDS: SODIUM CHLORIDE FLUSH 0.9% 10 ML SYRINGE IVP SCH (21:34)
[2017-02-14] MEDS: oxyCODONE 5 MG TABLET PO PRN (21:34)
--- NOTE | 2017-02-14 23:49 | HISTORY & PHYSICAL EXAMINATION ---
Chief Complaint - Chief Complaint Chief Complaint: Fever History of Present Illness - Admitted From Admitted From:: Emergency department - History Obtained From Records Reviewed: Yes History obtained from: Patient Exam Limitations: None - History of Present Illness HPI Comment/Other: Patient is a 36-year-old female with a past medical history significant for an unspecified seizure disorder, hypertension, hyperlipidemia, chronic pain, obstructive sleep apnea on CPAP, type 2 diabetes, peripheral neuropathy and anxiety who presents to the emergency department with a chief complaint of fever. The patient states that she had come into the emergency department yesterday as she been having frequent seizures at home. The patient states that she does have seizures almost on a daily basis however yesterday she had a number of seizures which was unusual for her. In the ER yesterday the patient was found to be hypotensive, she had an elevated lactic acid and a temperature of 37.7. The patient was thought to be septic and blood cultures were drawn however the patient left AGAINST MEDICAL ADVICE. The patient states that she return to the emergency department today as she was having a severe headache and again had several episodes of seizure activity and was just not feeling well. The patient was in a lot of pain on presentation as she states that she was just having generalized body aches. The patient had labs repeated which appeared to have normalized from the day prior. The patient's vital signs were within normal limits and she was discharged home. The patient was called at home as her blood cultures from previous day came back positive for gram- positive cocci and she returned back to the emergency department. The patient states that at home she had a temperature of 102 and again upon returning to the emergency department she had several episodes of seizure activity. The patient otherwise denies any blurred vision, runny nose, sore throat, she was having some cough and mild shortness of air but denied any chest pain, abdominal pain, nausea, vomiting, urinary urgency, urinary frequency, or dysuria , she did admit to decreased appetite, muscle aches but denied any focal neurologic deficits. On presentation back to the emergency department tonight the patient was afebrile and vital signs were stable. The patient did not have any labs drawn tonight if she had already come into the emergency department earlier in the day. Labs from earlier in the day did not show any evidence of leukocytosis, she was hyperglycemic and had a mild hyponatremia but otherwise her electrolytes were within normal limits. The patient did have a chest x-ray on the day prior to admission which was negative. She also had a UA that was negative. The patient was admitted to the hospital for bacteremia with gram- positive cocci and started on vancomycin IV. 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: reports: None : reports: Incontinence HEENT: reports: None Psych: reports: Depression, Anxiety, Bipolar disorder, Schizophrenia, ADD/ADHD, Post traumatic stress disorder, Obsessive compulsive disorder Musculoskeletal: reports: Osteoarthritis, Osteoporosis Derm: reports: Other drug resistant infections MRSA Hx?: Yes - Past Surgical History General: reports: Cholecystectomy /DEVELOPMENTAL MATHEMATICS PROFESSOR: reports: Tubal ligation, Other HEENT: reports: Tonsil/Adenoidectomy - Family & Social History Family History: Mother: Alive and Well, Cancer, Sister: Diabetes, Type 2, Mental Illness, Obesity, Brother: Diabetes, Type 2, Mental Illness, Obesity, Other family: Cancer Living arrangement: At home Social History Notes: The patient was born in [place], met her to be, and they were in 2000. She became homeless in 2007. Again moved would [facility] 4 years ago. She was up to 3-1/2-4 packs of cigarettes. She stopped smoking about a year ago but then restarted and has been smoking less. The patient has no history of alcohol or drug abuse. She is on disability for her psychiatric disorder and has in-home support several hours a week. She currently lives in a trailer behind the [facility] in [place]. She has 1 child who lives with her mother. - Substance History Use: Uses substance without health or social issues: NONE Abuse: Recurrent use of substance despite neg consequences: NONE Dependence: Experiences withdrawal or developed tolerances: NONE - POLST Patient has POLST: No POLST Status: Full Code Meds/Allgy - Home Medications Home Medications: Ambulatory Orders Medication Instructions Recorded Confirmed Baclofen 10 mg PO QID PRN 10/31/16 02/14/17 Clonazepam 1 mg PO DAILY PRN 10/31/16 02/14/17 Insulin Aspart (Vial) [NovoLOG 1 - 10 unit SUBQ .SLIDINGSCALE 10/31/16 02/14/17 (VIAL FOR ED USE)] Insulin Regular, Human [Humulin R 25 units SUBQ BID 10/31/16 02/14/17 U-500] Metformin HCl [Glucophage Xr] 500 mg PO BIDWM 10/31/16 02/14/17 Zonisamide [Zonegran] 200 mg PO TID 12/02/16 02/14/17 Lorazepam [Ativan] 1 mg PO TID PRN #5 tablet 01/16/17 02/14/17 Trazodone HCl 150 mg PO QPM #20 tablet 02/06/17 02/14/17 Azithromycin [Zithromax] 250 mg PO DAILY #4 tablet 02/13/17 02/14/17 Oxycodone HCl/Acetaminophen 1 - 2 tab PO Q4H PRN #5 tablet 02/14/17 [Percocet 5-325 mg Tablet] - Allergies Allergies/Adverse Reactions: Allergies Allergy/AdvReac Type Severity Reaction Status Date / Time Latex, Natural Rubber Allergy Mild Rash Verified 01/16/17 16:58 acetaminophen [From Vicodin] Allergy Hives Verified 01/16/17 16:58 hydrocodone bitartrate * Allergy Hives Verified 01/16/17 16:58 [From Vicodin] Penicillins Allergy Rash Verified 01/16/17 16:58 tramadol Allergy Rash Verified 01/16/17 16:58 adhesive AdvReac Intermediate chemical Verified 01/16/17 16:58 logan haloperidol [From Haldol] AdvReac Unknown Hallucinati Verified 01/16/17 16:58 ons iodine AdvReac Unknown Rash Verified 01/16/17 16:58 latex AdvReac Unknown Respiratory Verified 12/02/16 21:42 lamotrigine [From Lamictal] AdvReac Rash Verified 01/16/17 16:58 varenicline tartrate * AdvReac Hallucinati Verified 12/02/16 21:42 [From Chantix] ons steriods AdvReac Intermediate Unknown Uncoded 12/02/16 21:42 Review of Systems - Other Findings Other Findings: A comprehensive review of systems was performed the pertinent positives and negatives are stated above in the HPI and the remainder of the review of systems is negative. Exam - Vital Signs Reviewed Vital Signs: Yes Vital Signs: Vital Signs x48h Temp Pulse Resp BP Pulse Ox 02/14/17 20:43 36.7 C 77 16 113/77 96 - Physical Exam General Appearance: positive: No acute distress, Alert, Other (Obese) Eyes Bilateral: positive: Normal inspection, PERRL, EOMI, No lid inflammation, Conjunctivae nml, No scleral icterus ENT: positive: ENT inspection nml, Pharynx nml, Dry mucous membranes. negative : Purulent nasal drainage, Pharyngeal erythema, Oral lesions Neck: positive: Nml inspection, Thyroid nml, No JVD, Trachea midline. negative : Lymphadenopathy (R), Lymphadenopathy (L), Stiff neck, Carotid bruit, Tracheal deviation Respiratory: positive: Chest non-tender, No respiratory distress, Breath sounds nml. negative: Wheezes, Rales, Rhonchi Cardiovascular: positive: Regular rate & rhythm, No murmur, No gallop Peripheral Pulses: positive: 2+ Abdomen: positive: Non-tender, No organomegaly, Nml bowel sounds, No distention. negative: Guarding, Rebound, Hepatomegaly Back: positive: Nml inspection. negative: CVA tenderness (R), CVA tenderness (L ) Skin: positive: Color nml, No rash, Warm. negative: Cyanosis, Pallor Extremities: positive: Non-tender, Full ROM, Nml appearance, No pedal edema Neurologic/Psychiatric: positive: Oriented x3, CN's nml (2-12), Motor nml, Sensation nml, Mood/affect nml Conclusion/Plan - Problem List (1) Gram-positive bacteremia Conclusion/Plan: The patient presented yesterday with frequent seizures. The patient was found to have hypotension, elevated lactic acid and low-grade fever yesterday. The patient had fever again overnight at home. She continued to have increased seizure activity. The the patient underwent blood cultures yesterday but left AMA. Today patient was found to have positive blood cultures with gram- positive cocci. The patient was asked to return to the emergency department and admitted for IV antibiotics. Source of bacteremia is unclear as the patient does not have any permanent lines , she is not an IV drug user and does not have any evidence of cellulitis or skin infection. Patient's chest x-ray and UA were negative Plan: We will repeat blood cultures Patient will be placed on IV vancomycin until blood cultures return. We will monitor patient closely for sepsis. (2) Diabetes Conclusion/Plan: Patient is a diabetic and has poorly controlled blood sugars. The patient's most recent A1c was 11.0. She presents with elevated blood sugar. Patient's blood sugars are likely elevated secondary to bacteremia. Plan: Patient will be placed on home dose of Lantus and we will place her on sliding scale of insulin. Patient will be placed on a diabetic diet. We will monitor patient's blood glucose before meals at bedtime Qualifiers: Diabetes mellitus type: type 2 Diabetes mellitus complication status: with unspecified complications Diabetes mellitus buttermaker insulin use: unspecified nursing home insulin use status Qualified Code(s): E11.8 - Type 2 diabetes mellitus with unspecified complications (3) Seizure disorder Conclusion/Plan: Patient has history of seizure disorder which is unspecified. There is some concern that the patient may have pseudoseizures. Patient presented with frequent seizures at home and had subsequent seizures in the emergency department. Patient's increased seizure activity is likely secondary to decreased seizure threshold due to infection and bacteremia. Plan: Patient will be continued on her home dose of clonazepam and trazodone. We will monitor closely for any further seizure activity and give Ativan as needed for subsequent seizures. We will treat patient's bacteremia and hopes that this will decrease her seizure activity. (4) Peripheral neuropathy Conclusion/Plan: The patient has history of peripheral neuropathy and uses baclofen at home. We will continue the patient's baclofen The patient also uses Percocet for chronic pain we will continue patient on oxycodone while she is hospitalized. (5) Anxiety Conclusion/Plan: The patient has history of multiple mental health disorders including anxiety. The patient does use clonazepam, Ativan and trazodone at home. We will continue the patient's home medications and continue to monitor her for any symptoms. (6) Prophylactic use of low molecular weight heparin for venous thromboembolism (VTE) Conclusion/Plan: Patient will be placed on Lovenox while she is hospitalized. - Lab Results Lab results reviewed: Yes - Diagnostic Imaging Results Diagnostic Imaging Results: positive: Final report reviewed Diagnostic Imaging Results Comments: Chest x-ray Impression: Normal single view chest Issues/Core Measures - Anticipated LOS Anticipated Stay Length: 2 or more midnights - DVT/VTE - Prophylaxis VTE/DVT Prophylaxis med ordered at admit?: Yes
[2017-02-15] MEDS ORDERED: INSULIN ASPART 300 UNIT/3 ML PEN SUBQ ONE (00:10)
[2017-02-15] MEDS: INSULIN ASPART 300 UNIT/3 ML PEN SUBQ SCH ×3 (00:15→12:02)
[2017-02-15] MEDS: oxyCODONE 5 MG TABLET PO PRN ×2 (01:40→05:48)
[2017-02-15] MEDS ORDERED: guaiFENesin/CODEINE 5 ML UDC PO PRN (03:24)
[2017-02-15] MEDS ORDERED: IPRATROPIUM/ALBUTEROL 3 ML NEB INH PRN (03:24)
[2017-02-15] MEDS: SODIUM CHLORIDE FLUSH 0.9% 10 ML SYRINGE IVP SCH ×2 (04:53→09:12)
[2017-02-15 05:05] LABS: BASOPHILS # (AUTO) 0.1 10^3/uL (0.0-0.1); BASOPHILS % (AUTO) 1.1 %; HCT - HEMATOCRIT 41.2 % (37.0-47.0); HGB - HEMOGLOBIN 14.1 g/dL (12.0-16.0); LYMPHOCYTES # (AUTO) 2.3 10^3/uL (1.5-3.5); LYMPHOCYTES % (AUTO) 34.2 %; MEAN CORPUSCULAR HEMOGLOBIN 30.6 pg (27.0-31.0); MEAN CORPUSCULAR HGB CONC 34.3 g/dL (32.0-36.0); MEAN CORPUSCULAR VOLUME 89.1 fL (81.0-99.0); MEAN PLATELET VOLUME 6.8 fL (7.9-10.8); MONOCYTES # (AUTO) 0.6 10^3/uL (0.0-1.0); MONOCYTES % (AUTO) 9.2 %; NEUTROPHILS # (AUTO) 3.7 10^3/uL (1.5-6.6); NEUTROPHILS % (AUTO) 55.5 %; NUCLEATED RED BLOOD CELLS AUTO 0.1 /100WBC; RED BLOOD COUNT 4.62 10^6/uL (4.20-5.40); UNCORRECTED WHITE BLOOD COUNT 6.7 x10^3/uL; WHITE BLOOD COUNT 6.7 x10^3/uL (4.8-10.8)
[2017-02-15 05:27] LABS: ALBUMIN/GLOBULIN RATIO 1.3 (1.0-2.2); BILIRUBIN,TOTAL 0.3 mg/dL (0.2-1.0); CALCIUM 8.4 mg/dL (8.5-10.3); CREATININE 0.6 mg/dL (0.4-1.0); MAGNESIUM 1.9 mg/dL (1.7-2.8); PHOSPHORUS 3.3 mg/dL (2.5-4.6); POTASSIUM 3.3 mmol/L (3.5-5.0); TOTAL PROTEIN 6.1 g/dL (6.7-8.2)
[2017-02-15 07:28] VITALS: BP 90/67
[2017-02-15] MEDS ORDERED: VANCOMYCIN INJ 1.75 GM in SODIUM CHLORIDE 0.9% 500 ML IV SCH (08:00)
[2017-02-15] MEDS ORDERED: VANCOMYCIN 1.5 GM/NS 500 ML 500 ML IV SCH (08:00)
[2017-02-15] MEDS ORDERED: LORazepam 2 MG/ML SYRINGE IVP PRN (08:35)
[2017-02-15] MEDS: SODIUM CHLORIDE 0.9% 1,000 ML IV SCH (08:40)
[2017-02-15] MEDS ORDERED: FAMOTIDINE 20 MG TABLET PO SCH (09:00)
[2017-02-15] MEDS ORDERED: POLYETHYLENE GLYCOL 3350 17 GM PACKET PO SCH (09:00)
[2017-02-15] MEDS ORDERED: INSULIN REGULAR HUMAN 100 UNIT/1 ML 10 ML MDV SUBQ SCH (09:00)
[2017-02-15] MEDS ORDERED: ENOXAPARIN 40 MG/0.4 ML SYRINGE SUBQ SCH (09:00)
--- NOTE | 2017-02-15 10:12 | Discharge Plan ---
Discharge Plan Disposition: Home, Self Care Condition: Stable Diet: Diabetic Activity Restrictions: Activity as Tolerated Shower Restrictions: No Driving Restrictions: No Weight Bearing: Full Weight Instruction Topics: Temperature Axillary Additional Instructions or Follow Up instructions: PLEASE SEE YOUR PRIMARY CARE PROVIDER THIS WEEK AND TELL THEM YOU WERE IN THE HOSPITAL PLEASE CONTINUE TO TAKE HOME MEDICATIONS PRESCRIBED PLEASE CONTINUE TO TAKE YOUR BLOOD GLUCOSE LEVEL WITH EVERY MEAL CONTINUE TO TAKE YOUR INSULIN AND METFORMIN CONTINUE ON A DIABETIC DIET AND CALL THE [facility] FOR APPOINTMENT FOR COUNSELING FOR HYPERGLYCEMIA. YOU HAVE A HEMOGLOBIN A1C OF >10 RETURN TO THE ER IF YOU HAVE CHEST PAIN OR WORSENING SHORTNESS OF BREATH THAT WILL NOT IMPROVE. CALL 911 IF THEY WORSEN No Smoking: If you smoke, Please STOP! Call for help. Follow-up with: Lorna Mulligan MD [Primary Care Provider] -
--- NOTE | 2017-02-15 10:15 | DISCHARGE SUMMARY ---
"Discharge Summary Admit Date: 02/14/17 Discharge Date: 02/15/17 Discharging Provider: ANNA MOORE Condition at Discharge: Stable Discharge Disposition: 01 Home, Self Care Discharge Facility Name: HOME - DIAGNOSES Admission Diagnoses: 1. ACUTE GRAM POSITIVE BACTEREMIA 2. TYPE 2 DIABETES INSULIN CONTROLLED WITH UNSPECIFIED COMPLICATIONS INCLUDING PERIPHERAL NEUROPATHY 3. CHRONIC SEIZURE DISORDER POSSIBLE PSEUDO 4. MORBID OBESITY WITH BMI >40 5. GENERALIZED ANXIETY DISORDER CHRONIC Discharge Diagnoses with Status of Each Condition: 1. ACUTE GRAM POSITIVE BLOOD CULTURES WITH FALSE POSITIVE DUE TO CONTAMINATE 2. TYPE 2 DIABETES INSULIN CONTROLLED WITH UNSPECIFIED COMPLICATIONS INCLUDING PERIPHERAL NEUROPATHY 3. CHRONIC SEIZURE DISORDER POSSIBLE PSEUDOSEIZURE 4. MORBID OBESITY WITH BMI >40 5. GENERALIZED ANXIETY DISORDER CHRONIC 6. ACUTE ON CHRONIC HEADACHE, UNSPECIFIED - HPI History of Present Illness: Patient is a 36-year-old female with a past medical history significant for an unspecified seizure disorder, hypertension, hyperlipidemia, chronic pain, obstructive sleep apnea on CPAP, type 2 diabetes, peripheral neuropathy and anxiety who presents to the emergency department with a chief complaint of fever. The patient states that she had come into the emergency department yesterday as she been having frequent seizures at home. The patient states that she does have seizures almost on a daily basis however yesterday she had a number of seizures which was unusual for her. In the ER yesterday the patient was found to be hypotensive, she had an elevated lactic acid and a temperature of 37.7. The patient was thought to be septic and blood cultures were drawn however the patient left AGAINST MEDICAL ADVICE. The patient states that she return to the emergency department today as she was having a severe headache and again had several episodes of seizure activity and was just not feeling well. The patient was in a lot of pain on presentation as she states that she was just having generalized body aches. The patient had labs repeated which appeared to have normalized from the day prior. The patient's vital signs were within normal limits and she was discharged home. The patient was called at home as her blood cultures from previous day came back positive for gram- positive cocci and she returned back to the emergency department. The patient states that at home she had a temperature of 102 and again upon returning to the emergency department she had several episodes of seizure activity. The patient otherwise denies any blurred vision, runny nose, sore throat, she was having some cough and mild shortness of air but denied any chest pain, abdominal pain, nausea, vomiting, urinary urgency, urinary frequency, or dysuria , she did admit to decreased appetite, muscle aches but denied any focal neurologic deficits. On presentation back to the emergency department tonight the patient was afebrile and vital signs were stable. The patient did not have any labs drawn tonight if she had already come into the emergency department earlier in the day. Labs from earlier in the day did not show any evidence of leukocytosis, she was hyperglycemic and had a mild hyponatremia but otherwise her electrolytes were within normal limits. The patient did have a chest x-ray on the day prior to admission which was negative. She also had a UA that was negative. The patient was admitted to the hospital for bacteremia with gram- positive cocci and started on vancomycin I - CONSULTS | PROCEDURES Consultations: NONE Procedures: BLOOD WORK, IVF CHEST XRAY PATIENT HAD REPEATED BLOOD CULTURES AND THE FIRST WERE PROBABLY CONTAMINATED. SHE DID RECEIVE VANCOMYCIN X 2 BEFORE DISCHARGE. SHE REMAINED AFEBRILE AND NO ELEVATED WHITE COUNT OR ELEVATED LACTIC ACID. - HOSPITAL COURSE Hospital Course: corina List (1) Gram-positive bacteremia Conclusion/Plan: Patient's chest x-ray and UA were negative We DID repeat blood cultures Patient given IV vancomycin x 2. Monitored closely for sepsis. no fever (2) Diabetes Conclusion/Plan: Patient is a diabetic and has poorly controlled blood sugars. The patient's most recent A1c was 11.0. She presents with elevated blood sugar. Patient was placed on home dose of Lantus and we will placed her on sliding scale of insulin. Patient was placed on a diabetic diet. 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 There is some concern that the patient may have pseudoseizures. Patient presented with frequent seizures at home and had subsequent seizures in the emergency department. Patient's increased seizure activity is likely secondary to decreased seizure threshold due to infection and bacteremia. Patient continued on her home dose of clonazepam and trazodone. monitored closely for any further seizure activity and give Ativan as needed for subsequent seizures. (4) Peripheral neuropathy Conclusion/Plan: The patient has history of peripheral neuropathy and uses baclofen at home. We continued the patient's baclofen The patient also uses Percocet for chronic pain we continued patient on oxycodone while she was hospitalized. (5) Anxiety Conclusion/Plan: The patient has history of multiple mental health disorders including anxiety. The patient does use clonazepam, Ativan and trazodone at home. We continued the patient's home medications and continued to monitor her for any symptoms. (6) Prophylactic use of low molecular weight heparin for venous thromboembolism (VTE) Conclusion/Plan: Patient was placed on Lovenox while she was hospitalized. PATIENT HAD REPEATED BLOOD CULTURES AND THE FIRST WERE PROBABLY CONTAMINATED. SHE DID RECEIVE VANCOMYCIN X 2 BEFORE DISCHARGE. SHE REMAINED AFEBRILE AND NO ELEVATED WHITE COUNT OR ELEVATED LACTIC ACID. SHE WANTED TO BE DISCHARGED HOME SHE WAS ABLE TO GO HOME WITH AND WAS STABLE. SHE CONTINUED ON OUTPATIENT ANTIBIOTIC PRESCRIBED IN THE ER, SHE WAS INSTRUCTED TO SEE HER PCP TOMORROW AND SHE HAS AN APPOINTMENT WITH HER NEUROLOGIST ON FEB 24. SHE INTENDS ON KEEPING THE APPOINTMENT. - ALLERGIES Allergies/Adverse Reactions: Allergies Allergy/AdvReac Type Severity Reaction Status Date / Time Latex, Natural Rubber Allergy Mild Rash Verified 01/16/17 16:58 acetaminophen [From Vicodin] Allergy Hives Verified 01/16/17 16:58 hydrocodone bitartrate * Allergy Hives Verified 01/16/17 16:58 [From Vicodin] Penicillins Allergy Rash Verified 01/16/17 16:58 tramadol Allergy Rash Verified 01/16/17 16:58 adhesive AdvReac Intermediate chemical Verified 01/16/17 16:58 logan haloperidol [From Haldol] AdvReac Unknown Hallucinati Verified 01/16/17 16:58 ons iodine AdvReac Unknown Rash Verified 01/16/17 16:58 latex AdvReac Unknown Respiratory Verified 12/02/16 21:42 lamotrigine [From Lamictal] AdvReac Rash Verified 01/16/17 16:58 varenicline tartrate * AdvReac Hallucinati Verified 12/02/16 21:42 [From Chantix] ons steriods AdvReac Intermediate Unknown Uncoded 12/02/16 21:42 - MEDICATIONS Home Medications: Ambulatory Orders Medication Instructions Recorded Confirmed Baclofen 10 mg PO QID PRN 10/31/16 02/15/17 Clonazepam 1 mg PO DAILY PRN 10/31/16 02/15/17 Insulin Aspart (Vial) [NovoLOG 1 - 10 unit SUBQ .SLIDINGSCALE 10/31/16 02/15/17 (VIAL FOR ED USE)] Insulin Regular, Human [Humulin R 0.08 ml SUBQ BID 10/31/16 02/15/17 U-500] Zonisamide [Zonegran] 200 mg PO BID 12/02/16 02/15/17 Acetazolamide [Acetazolamide] 500 mg PO BID 02/15/17 02/15/17 Clozapine [Clozapine] 100 mg PO TID 02/15/17 02/15/17 Esomeprazole Magnesium 40 mg PO QDAC 02/15/17 02/15/17 [Esomeprazole Magnesium] Metformin HCl 1,000 mg PO BIDWM 02/15/17 02/15/17 Mirtazapine [Mirtazapine] 7.5 mg PO QPM 02/15/17 02/15/17 Oxybutynin [Ditropan] 5 mg PO BID 02/15/17 02/15/17 Polyethylene Glycol 3350 [Glycolax] 17 gm PO DAILY 02/15/17 02/15/17 Prazosin HCl [Prazosin HCl] 5 mg PO QPM 02/15/17 02/15/17 Quetiapine Fumarate [Seroquel] 400 mg PO QPM 02/15/17 02/15/17 Trazodone HCl 200 mg PO QPM 02/15/17 02/15/17 Venlafaxine HCl [Venlafaxine HCl 150 mg PO DAILY 02/15/17 02/15/17 ER] - PHYSICAL EXAM AT DISCHARGE General Appearance: positive: No acute distress, Alert Eyes Bilateral: positive: Normal inspection, PERRL, EOMI ENT: positive: ENT inspection nml, Pharynx nml, No signs of dehydration Neck: positive: Nml inspection, Thyroid nml, No JVD, Trachea midline Respiratory: positive: Chest non-tender, No respiratory distress, Breath sounds nml Cardiovascular: positive: Regular rate & rhythm, No murmur, No gallop Peripheral Pulses: positive: 2+ Abdomen: positive: Non-tender, No organomegaly, Nml bowel sounds, No distention Rectal: positive: Non-tender Back: positive: Nml inspection Skin: positive: Color nml, No rash, Warm, Dry, Cyanosis Extremities: positive: Non-tender, Full ROM, Nml appearance, No pedal edema Neurologic/Psychiatric: positive: Oriented x3, CN's nml (2-12), Motor nml, Sensation nml - LABS Result Diagrams: 02/15/17 04:59 02/15/17 04:59 Other Lab Results: Abnormal Lab Results 02/14/17 02/15/17 02/15/17 23:59 04:59 04:59 MPV 6.8 fL L fL (7.9-10.8) Sodium 134 mmol/L L mmol/L (135-145) Potassium 3.3 mmol/L L mmol/L (3.5-5.0) Glucose 292 mg/dL H mg/dL (70-100) POC Whole Bld Glucose 273 mg/dL H mg/dL (70 - 100) Calcium 8.4 mg/dL L mg/dL (8.5-10.3) Total Protein 6.1 g/dL L g/dL (6.7-8.2) 02/15/17 07:23 MPV Sodium Potassium Glucose POC Whole Bld Glucose 317 mg/dL H mg/dL (70 - 100) Calcium Total Protein - DIAGNOSTIC IMAGING Diagnostic Imaging Results: Prelim report reviewed - FOLLOW UP Follow Up: PATIENT WAS INSTRUCTED TO SEE HER NEUROLOGIST AND PRIMARY CARE PROVIDER WITHIN THE NEXT FEW DAYS PATIENT WAS TO CONTINUE ON HER HOME MEDICATIONS SHE VERBALLY UNDERSTOOD INSTRUCTIONS AND WANTS TO GO HOME - TIME SPENT Time Spent in Discharge (Minutes): 35 (FOR DISCHARGE ASSESSMENT AND PLANNING)"
[2017-02-15] MEDS ORDERED: POTASSIUM CHLORIDE 20 MEQ TABLET PO SCH (11:00)
[2017-02-15] MEDS ORDERED: VANCOMYCIN PER PHARMACY 1 GM in SODIUM CHLORIDE 0.9% 250 ML IV SCH (12:00)
[2017-02-15] MEDS ORDERED: ZONISAMIDE 200 MG PO SCH (14:00)
== END 2017-02-15 13:30 | disposition home or self-care (01) | DRG 951 ==
LOC: ED 18:37 → MS2 20:02
PROVIDERS: ADMIT Internal Medicine; ATTEND Nurse Practitioner
DX: A41.89 Other specified sepsis (principal); Z03.89 Encounter for observation for other suspected diseases and conditions ruled out; E78.00 Pure hypercholesterolemia, unspecified; Z68.41 Body mass index [BMI] 40.0-44.9, adult; G47.30 Sleep apnea, unspecified; E87.1 Hypo-osmolality and hyponatremia; G40.909 Epilepsy, unspecified, not intractable, without status epilepticus; I10 Essential (primary) hypertension; E66.01 Morbid (severe) obesity due to excess calories; F41.9 Anxiety disorder, unspecified; R51 Headache; E11.42 Type 2 diabetes mellitus with diabetic polyneuropathy; J45.909 Unspecified asthma, uncomplicated; K21.9 Gastro-esophageal reflux disease without esophagitis; K52.9 Noninfective gastroenteritis and colitis, unspecified; R32 Unspecified urinary incontinence; F31.9 Bipolar disorder, unspecified; F20.9 Schizophrenia, unspecified; F17.200 Nicotine dependence, unspecified, uncomplicated; F90.9 Attention-deficit hyperactivity disorder, unspecified type; R10.32 Left lower quadrant pain; F43.10 Post-traumatic stress disorder, unspecified; F42.9 Obsessive-compulsive disorder, unspecified; I95.9 Hypotension, unspecified; M19.90 Unspecified osteoarthritis, unspecified site; M81.0 Age-related osteoporosis without current pathological fracture; E11.65 Type 2 diabetes mellitus with hyperglycemia; F17.210 Nicotine dependence, cigarettes, uncomplicated; Z79.4 Long term (current) use of insulin; Z79.84 Long term (current) use of oral hypoglycemic drugs; Z87.11 Personal history of peptic ulcer disease
CPT/HCPCS: 36415; 80048; 80053; 81001; 81003; 83605; 83735; 84100; 85025; 87040; 87086; 96365; 96372; 99282; 99283; 99284

== ENCOUNTER 2017-02-18 22:58 | Outpatient (CLI) | payer MEDICARE, MEDICAID | END 2017-02-18 22:59 | disposition critical access hospital (66) | LOC: EMS 22:58 | PROVIDERS: ATTEND Surgery | DX: R55 Syncope and collapse (principal); M54.2 Cervicalgia; R10.30 Lower abdominal pain, unspecified; W19.XXXA Unspecified fall, initial encounter; Y92.039 Unspecified place in apartment as the place of occurrence of the external cause | CPT/HCPCS: A0425; A0429 ==

== ENCOUNTER 2017-02-18 23:00 | Emergency (ER) | payer MEDICARE, MEDICAID ==
[2017-02-18] MEDS ORDERED: INSULIN REGULAR HUMAN 100 UNIT/1 ML 10 ML MDV IVP STA (23:11)
[2017-02-18] MEDS ORDERED: SODIUM CHLORIDE 0.9% 1,000 ML IV ONE (23:11)
[2017-02-18 23:30] LABS: VBG PH 7.318 (7.31-7.41)
[2017-02-18 23:31] LABS: VBG BASE EXCESS -6.6 mmol/L (-2 - +2); VBG OXYGEN SATURATION 89.1 % (60-80); VBG TOTAL CO2 20.1 mmol/L (24-29)
[2017-02-18] MEDS ORDERED: INSULIN REGULAR HUMAN 100 UNIT/1 ML 10 ML MDV ONE ×2 (23:35→23:53)
[2017-02-18 23:41] LABS: BASOPHILS # (AUTO) 0.1 10^3/uL (0.0-0.1); BASOPHILS % (AUTO) 1.2 %; HCT - HEMATOCRIT 40.8 % (37.0-47.0); HGB - HEMOGLOBIN 14.4 g/dL (12.0-16.0); LYMPHOCYTES # (AUTO) 2.5 10^3/uL (1.5-3.5); LYMPHOCYTES % (AUTO) 32.5 %; MEAN CORPUSCULAR HGB CONC 35.3 g/dL (32.0-36.0); MEAN CORPUSCULAR VOLUME 87.7 fL (81.0-99.0); MONOCYTES # (AUTO) 0.5 10^3/uL (0.0-1.0); MONOCYTES % (AUTO) 6.7 %; NEUTROPHILS # (AUTO) 4.7 10^3/uL (1.5-6.6); NEUTROPHILS % (AUTO) 59.6 %; NUCLEATED RED BLOOD CELLS AUTO 0.1 /100WBC; RED BLOOD COUNT 4.65 10^6/uL (4.20-5.40); RED CELL DISTRIBUTION WIDTH 14.8 % (12.0-15.0); UNCORRECTED WHITE BLOOD COUNT 7.8 x10^3/uL; WHITE BLOOD COUNT 7.8 x10^3/uL (4.8-10.8)
[2017-02-18 23:46] LABS: ALBUMIN/GLOBULIN RATIO 1.4 (1.0-2.2); BILIRUBIN,TOTAL 0.4 mg/dL (0.2-1.0); BUN - BLOOD UREA NITROGEN 9 mg/dL (6-20); CALCIUM 8.8 mg/dL (8.5-10.3); CARBON DIOXIDE - CO2 21 mmol/L (21-32); CHLORIDE 102 mmol/L (101-111); CREATININE 0.8 mg/dL (0.4-1.0); GFR - MDRD 82 (>89); GLUCOSE 288 mg/dL (70-100); LIPASE 25 U/L (22-51); POTASSIUM 3.5 mmol/L (3.5-5.0); SODIUM 132 mmol/L (135-145); TOTAL PROTEIN 6.6 g/dL (6.7-8.2)
[2017-02-18] MEDS ORDERED: KETOROLAC 15 MG/ML VIAL IVP STA (23:54)
[2017-02-18] MEDS ORDERED: METOCLOPRAMIDE 10 MG/2 ML VIAL IVP STA (23:54)
--- NOTE | 2017-02-19 00:10 | CT Preliminary Report ---
Exam: CT Cervical Spine W/O IMPRESSION: 1. No acute bony abnormality. 2. Mild to moderate mid and lower cervical spondylitic change, notably at C5-C6. [facility] SITE ID: [id number]
--- NOTE | 2017-02-19 00:12 | CT Report ---
EXAM: CT CERVICAL SPINE WITHOUT CONTRAST DATE: 02/18/2017 11:37 PM HISTORY: Fall, neck pain COMPARISONS: 09/04/2016, 02/11/2016 TECHNIQUE: Thin-section axial images were acquired of the cervical spine without contrast. Post-proce ssing: Coronal and sagittal reformats. Other: None. In accordance with CT protocol optimization, one or more of the following dose reduction techniques w ere utilized for this exam: automated exposure control, adjustment of mA and/or KV based on patient s ize, or use of iterative reconstructive technique. FINDINGS: Alignment: No subluxation. Bones: No fracture or bone lesion. Interspace Levels/Facets: Multilevel disk space height loss as well as endplate osteophytosis. Soft tissues: The paravertebral and prevertebral soft tissues are normal. The lung apices are clear. IMPRESSION: 1. No acute bony abnormality. 2. Mild to moderate mid and lower cervical spondylitic change, notably at C5-C6. [facility] Referring Provider Line: [phone] SITE ID: [id number]
[2017-02-19 00:34] LABS: BILIRUBIN,URINE NEGATIVE (NEGATIVE)
[2017-02-19] MEDS ORDERED: KETOROLAC 15 MG/ML VIAL ONE (00:34)
[2017-02-19] MEDS ORDERED: METOCLOPRAMIDE 10 MG/2 ML VIAL ONE (00:34)
[2017-02-19 00:37] LABS: UA CHARGE (STRIP ONLY) YES; UR CULTURE IF IND NOT INDICATED
--- NOTE | 2017-02-19 00:49 | ED Physician Documentation ---
PD HPI Fall - Stated complaint Stated Complaint: FALL/ABD PN - Chief complaint Chief Complaint: General - History obtained from History obtained from: Patient, EMS - History of Present Illness Mechanism of injury: Slipped Fall distance: Sitting position Where injury occurred: Home Timing - onset: How many hours ago (1) Injury(ies) location: Neck Quality of pain: Pain Associated symptoms: LOC, Seizures. No: Amnesia Worsens with: Movement, Palpation Similar symptoms before: Work up / diagnostics, Treatment Recently seen: Emergency Dept - Additional information Additional information: Patient is a 36 year old female with multiple co-morbidities whith multiple ED visits who is presenting to the emergency department for falling and questionable seizure. patient states that she was also admitted recently for sepsis. Patient states that she fell from a seated position and now has neck pain. Review of Systems Constitutional: denies: Fever, Chills Eyes: denies: Decreased vision, Photophobia Ears: denies: Ear pain Nose: denies: Epistaxis Throat: denies: Dental pain / toothache, Sore throat Cardiac: denies: Chest pain / pressure Respiratory: denies: Cough, Wheezing GI: reports: Abdominal Pain. denies: Nausea, Vomiting : reports: Unable to Void. denies: Dysuria, Frequency, Hesitancy, Vaginal bleeding Musculoskeletal: reports: Neck pain, Back pain Neurologic: reports: Seizure. 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: None : Incontinence HEENT: None Psych: Depression, Anxiety, Bipolar disorder, Schizophrenia, ADD/ADHD, Post traumatic stress disorder, Obsessive compulsive disorder Musculoskeletal: Osteoarthritis, Osteoporosis Derm: Other drug resistant infections - Past Surgical History Past Surgical History: Yes General: Cholecystectomy /ADULT PROTECTIVE CASEWORKER: Tubal ligation, Other HEENT: Tonsil/Adenoidectomy - Present Medications Home Medications: Ambulatory Orders Medication Instructions Recorded Confirmed Baclofen 10 mg PO QID PRN 10/31/16 02/15/17 Insulin Aspart (Vial) [NovoLOG 1 - 10 unit SUBQ .SLIDINGSCALE 10/31/16 02/15/17 (VIAL FOR ED USE)] Insulin Regular, Human [Humulin R 0.08 ml SUBQ BID 10/31/16 02/15/17 U-500] Zonisamide [Zonegran] 200 mg PO BID 12/02/16 02/15/17 Acetazolamide [Acetazolamide] 500 mg PO BID 02/15/17 02/15/17 Clozapine [Clozapine] 100 mg PO TID 02/15/17 02/15/17 Esomeprazole Magnesium 40 mg PO QDAC 02/15/17 02/15/17 [Esomeprazole Magnesium] Metformin HCl 1,000 mg PO BIDWM 02/15/17 02/15/17 Mirtazapine [Mirtazapine] 7.5 mg PO QPM 02/15/17 02/15/17 Oxybutynin [Ditropan] 5 mg PO BID 02/15/17 02/15/17 Polyethylene Glycol 3350 [Glycolax] 17 gm PO DAILY 02/15/17 02/15/17 Quetiapine Fumarate [Seroquel] 400 mg PO QPM 02/15/17 02/15/17 Venlafaxine HCl [Venlafaxine HCl 150 mg PO DAILY 02/15/17 02/15/17 ER] Clonazepam [Clonazepam] 1 mg PO QPM PRN 02/17/17 Prazosin HCl [Prazosin HCl] 10 mg PO QPM 02/17/17 Trazodone HCl 100 - 200 mg PO QPM PRN 02/17/17 - Allergies Allergies/Adverse Reactions: Allergies Allergy/AdvReac Type Severity Reaction Status Date / Time Latex, Natural Rubber Allergy Mild Rash Verified 01/16/17 16:58 acetaminophen [From Vicodin] Allergy Hives Verified 01/16/17 16:58 hydrocodone bitartrate * Allergy Hives Verified 01/16/17 16:58 [From Vicodin] Penicillins Allergy Rash Verified 01/16/17 16:58 tramadol Allergy Rash Verified 01/16/17 16:58 adhesive AdvReac Intermediate chemical Verified 01/16/17 16:58 logan haloperidol [From Haldol] AdvReac Unknown Hallucinati Verified 01/16/17 16:58 ons iodine AdvReac Unknown Rash Verified 01/16/17 16:58 latex AdvReac Unknown Respiratory Verified 12/02/16 21:42 lamotrigine [From Lamictal] AdvReac Rash Verified 01/16/17 16:58 varenicline tartrate * AdvReac Hallucinati Verified 12/02/16 21:42 [From Chantix] ons steriods AdvReac Intermediate Unknown Uncoded 12/02/16 21:42 - Social History Does the pt smoke?: Yes Smoking Status: Current every day smoker Does the pt drink ETOH?: Yes Does the pt have substance abuse?: Yes - Immunizations Immunizations are current?: Yes - POLST Patient has POLST: No POLST Status: Full Code PD ED PE NORMAL - Vitals Vital signs reviewed: Yes - General General: Alert and oriented X 3, No acute distress - HEENT HEENT: Atraumatic, PERRL - Cardiac Cardiac: RRR, No murmur - Respiratory Respiratory: No respiratory distress - Abdomen Abdomen: Soft, Non distended - Back Back: No spinal TTP - Derm Derm: Normal color, No rash - Neuro Neuro: Alert and oriented X 3, No motor deficit, No sensory deficit, Normal speech - Psych Psych: Normal mood PD ED PE EXPANDED - Neck Neck: Soft tissue TTP (more on the left side), Bony TTP - Abdomen Abdomen: Tender to palpation, Generalized/diffuse. No: Distended, Rebound, Guarding Results - Vitals Vitals: Vital Signs - 24 hr 02/18/17 02/19/17 23:05 01:11 Temperature 36.5 C 36.5 C Heart Rate 87 88 Respiratory 16 18 Rate Blood Pressure 118/67 123/76 O2 Saturation 98 99 Oxygen O2 Source Room air - Labs Labs: Laboratory Tests 02/18/17 02/18/17 02/18/17 23:21 23:21 23:21 WBC 7.8 RBC 4.65 Hgb 14.4 Hct 40.8 MCV 87.7 MCH 31.0 MCHC 35.3 RDW 14.8 Plt Count 226 MPV 7.0 L Neut # 4.7 Lymph # 2.5 Nance # 0.5 Eos # 0.0 Baso # 0.1 Absolute Nucleated RBC 0.00 Nucleated RBC % 0.1 VBG pH VBG pCO2 VBG pO2 VBG HCO3 VBG Total CO2 VBG O2 Saturation VBG Base Excess Sodium 132 L Potassium 3.5 Chloride 102 Carbon Dioxide 21 Anion Gap 9.0 BUN 9 Creatinine 0.8 Estimated GFR (MDRD) 82 L Glucose 288 H Lactic Acid 1.7 Calcium 8.8 Total Bilirubin 0.4 AST 16 ALT 14 Alkaline Phosphatase 76 Total Protein 6.6 L Albumin 3.8 Globulin 2.8 Albumin/Globulin Ratio 1.4 Lipase 25 Urine Color Urine Clarity Urine pH Ur Specific [place] Urine Protein Urine Glucose (UA) Urine Ketones Urine Occult Blood Urine Nitrite Urine Bilirubin Urine Urobilinogen Ur Leukocyte Esterase Ur Microscopic Review Urine Culture Comments Serum Ketones NEGATIVE 02/18/17 02/19/17 23:21 00:30 WBC RBC Hgb Hct MCV MCH MCHC RDW Plt Count MPV Neut # Lymph # [place] # Eos # Baso # Absolute Nucleated RBC Nucleated RBC % VBG pH 7.318 VBG pCO2 37.7 L VBG pO2 48.9 H VBG HCO3 18.9 L VBG Total CO2 20.1 L VBG O2 Saturation 89.1 H VBG Base Excess -6.6 L Sodium Potassium Chloride Carbon Dioxide Anion Gap BUN Creatinine Estimated GFR (MDRD) Glucose Lactic Acid Calcium Total Bilirubin AST ALT Alkaline Phosphatase Total Protein Albumin Globulin Albumin/Globulin Ratio Lipase Urine Color YELLOW Urine Clarity CLEAR Urine pH 7.0 Ur Specific [place] 1.015 Urine Protein NEGATIVE Urine Glucose (UA) >=1000 H Urine Ketones NEGATIVE Urine Occult Blood NEGATIVE Urine Nitrite NEGATIVE Urine Bilirubin NEGATIVE Urine Urobilinogen 0.2 (NORMAL) Ur Leukocyte Esterase NEGATIVE Ur Microscopic Review NOT INDICATED Urine Culture Comments NOT INDICATED Serum Ketones - Rads (name of study) ct cervical spine Radiology: Final report received (no acute abnormality) PD MEDICAL DECISION MAKING - ED course Complexity details: reviewed old records, reviewed results, re-evaluated patient , considered differential, d/w patient ED course: Patient was seen and examined at bedside. patient was well appearing and in no distress. fingerstick was performed and was elevated over three hundred. Patient was treated with fluids and insulin. labs were drawn and patient was sent for imaging. When patient returned the results showed no acute abnormality. patient stated that she had a headache, and was treated with reglan and toradol. Patient's diagnostics were all within normal limits. Patient required no further work up at this time and was stable for discharge with outpatient follow up. Departure - Departure Disposition: 01 Home, Self Care Clinical Impression: Abdominal pain Condition: Good Instructions: ED Abdominal Pain Unkn Cause Follow-Up: primary,care provider [Other] - Within 3 Days Comments: Your diagnostics today were within normal limits. there was no fracture or dislocation and no sign of infection. You should try to keep closer control of your blood sugars. You should follow up with your doctor this week. You may return to the emergency department at any time for new, worsening or uncontrollable symptoms. Discharge Date/Time: 02/19/17 01:11
[2017-02-19 01:15] VITALS: BP 123/76
== END 2017-02-19 01:11 | disposition home or self-care (01) ==
LOC: EDUNIT# → ED 23:00
DX: R10.9 Unspecified abdominal pain (principal); M54.2 Cervicalgia; W07.XXXA Fall from chair, initial encounter; Y92.019 Unspecified place in single-family (private) house as the place of occurrence of the external cause; E11.65 Type 2 diabetes mellitus with hyperglycemia; E11.42 Type 2 diabetes mellitus with diabetic polyneuropathy; Z79.4 Long term (current) use of insulin; I10 Essential (primary) hypertension; E78.00 Pure hypercholesterolemia, unspecified; J45.909 Unspecified asthma, uncomplicated; G40.909 Epilepsy, unspecified, not intractable, without status epilepticus; Z79.01 Long term (current) use of anticoagulants; K21.9 Gastro-esophageal reflux disease without esophagitis; Z87.11 Personal history of peptic ulcer disease; M19.90 Unspecified osteoarthritis, unspecified site; F17.200 Nicotine dependence, unspecified, uncomplicated
CPT/HCPCS: 36415; 51701; 72125; 80053; 81003; 82009; 82803; 83605; 83690; 85025; 96361; 96374; 96375; 99283; 99284; J1815; 81001; 87086

== ENCOUNTER 2017-02-25 08:59 | Outpatient (CLI) | payer MEDICARE, MEDICAID ==
[2017-02-25 09:16] LABS: BASOPHILS # (AUTO) 0.1 10^3/uL (0.0-0.1); BASOPHILS % (AUTO) 0.9 %; HCT - HEMATOCRIT 42.7 % (37.0-47.0); HGB - HEMOGLOBIN 14.6 g/dL (12.0-16.0); LYMPHOCYTES # (AUTO) 1.8 10^3/uL (1.5-3.5); LYMPHOCYTES % (AUTO) 23.4 %; MEAN CORPUSCULAR HEMOGLOBIN 30.5 pg (27.0-31.0); MEAN CORPUSCULAR HGB CONC 34.2 g/dL (32.0-36.0); MEAN CORPUSCULAR VOLUME 89.1 fL (81.0-99.0); MEAN PLATELET VOLUME 7.1 fL (7.9-10.8); MONOCYTES # (AUTO) 0.5 10^3/uL (0.0-1.0); MONOCYTES % (AUTO) 6.8 %; NEUTROPHILS # (AUTO) 5.2 10^3/uL (1.5-6.6); NEUTROPHILS % (AUTO) 68.9 %; RED CELL DISTRIBUTION WIDTH 14.5 % (12.0-15.0); UNCORRECTED WHITE BLOOD COUNT 7.6 x10^3/uL; WHITE BLOOD COUNT 7.6 x10^3/uL (4.8-10.8)
== END 2017-02-25 09:00 | disposition home or self-care (01) ==
LOC: LAB 08:59
PROVIDERS: ATTEND Psychiatry & Neurology Psychiatry
DX: Z79.899 Other long term (current) drug therapy (principal)
CPT/HCPCS: 36415; 85025

== ENCOUNTER 2017-03-04 12:13 | Outpatient (CLI) | payer MEDICARE, MEDICAID ==
[2017-03-04 13:02] LABS: BASOPHILS # (AUTO) 0.1 10^3/uL (0.0-0.1); HCT - HEMATOCRIT 43.9 % (37.0-47.0); LYMPHOCYTES # (AUTO) 2.5 10^3/uL (1.5-3.5); LYMPHOCYTES % (AUTO) 27.3 %; MEAN CORPUSCULAR HEMOGLOBIN 30.6 pg (27.0-31.0); MEAN CORPUSCULAR HGB CONC 34.2 g/dL (32.0-36.0); MEAN CORPUSCULAR VOLUME 89.4 fL (81.0-99.0); MEAN PLATELET VOLUME 7.2 fL (7.9-10.8); MONOCYTES # (AUTO) 0.5 10^3/uL (0.0-1.0); MONOCYTES % (AUTO) 5.4 %; NEUTROPHILS % (AUTO) 66.3 %; NUCLEATED RED BLOOD CELLS AUTO 0.1 /100WBC; RED BLOOD COUNT 4.91 10^6/uL (4.20-5.40); RED CELL DISTRIBUTION WIDTH 14.8 % (12.0-15.0); UNCORRECTED WHITE BLOOD COUNT 9.1 x10^3/uL; WHITE BLOOD COUNT 9.1 x10^3/uL (4.8-10.8)
== END 2017-03-04 12:14 | disposition home or self-care (01) ==
LOC: LAB 12:13
PROVIDERS: ATTEND Psychiatry & Neurology Psychiatry
DX: Z79.899 Other long term (current) drug therapy (principal)
CPT/HCPCS: 36415; 85025

== ENCOUNTER 2017-03-07 07:18 | Outpatient (CLI) | payer MEDICARE, MEDICAID | END 2017-03-07 07:19 | disposition critical access hospital (66) | LOC: EMS 07:18 | PROVIDERS: ATTEND Surgery | DX: R06.00 Dyspnea, unspecified (principal) | CPT/HCPCS: A0425; A0429 ==

== ENCOUNTER 2017-03-07 07:21 | Emergency (ER) | payer MEDICARE, MEDICAID ==
--- NOTE | 2017-03-07 09:09 | ED Physician Documentation ---
PD HPI URI - Stated complaint Stated Complaint: COUGH - Chief complaint Chief Complaint: Resp - History obtained from History obtained from: Patient - History of Present Illness Timing - onset: How many days ago (3) Timing duration: Days (3) Timing details: Gradual onset, Still present Associated symptoms: Ear pain, Nasal congestion, Rhinorrhea, Productive cough, Dyspnea Contributing factors: Sick contact Improves by: Rest, Medication, MDI/nebulizer Worsened by: Activity, Breathing Similar symptoms before: Diagnosis (bronchitis and pneumonia.) Recently seen: Admitted - Additional information Additional information: 37-year-old female with frequent visits to the emergency department with a history of pseudotumor cerebrii and reactive airway disease has developed a productive cough, congestion and dyspnea. She has been sick for about 4 days and this was precipitously worse last night. She has had pneumonia before. Review of Systems Constitutional: denies: Fever Eyes: denies: Decreased vision Ears: reports: Loss of hearing, Ear pain Nose: reports: Rhinorrhea / runny nose, Congestion Throat: reports: Sore throat Cardiac: denies: Chest pain / pressure, Palpitations Respiratory: reports: Dyspnea, Cough GI: denies: Abdominal Pain, Nausea, Vomiting : denies: Dysuria PD PAST MEDICAL HISTORY - Past Medical History Cardiovascular: Hypertension, High cholesterol, Other Respiratory: Asthma, Sleep apnea Neuro: Headache/migraine, Peripheral neuropathy, Seizure disorder Endocrine/Autoimmune: Type 2 diabetes GI: GERD, Ulcers, Chronic diarrhea, Other MANAGER HOUSE: None : Incontinence HEENT: None Psych: Depression, Anxiety, Bipolar disorder, Schizophrenia, ADD/ADHD, Post traumatic stress disorder, Obsessive compulsive disorder Musculoskeletal: Osteoarthritis, Osteoporosis Derm: Other drug resistant infections - Past Surgical History Past Surgical History: Yes General: Cholecystectomy /MANAGER HOUSE: Tubal ligation, Other HEENT: Tonsil/Adenoidectomy - Present Medications Home Medications: Ambulatory Orders Medication Instructions Recorded Confirmed Baclofen 10 mg PO QID PRN 10/31/16 03/07/17 Insulin Aspart (Vial) [NovoLOG 1 - 10 unit SUBQ .SLIDINGSCALE 10/31/16 03/07/17 (VIAL FOR ED USE)] Insulin Regular, Human [Humulin R 0.08 ml SUBQ BID 10/31/16 03/07/17 U-500] Zonisamide [Zonegran] 200 mg PO BID 12/02/16 03/07/17 Acetazolamide [Acetazolamide] 500 mg PO BID 02/15/17 03/07/17 Clozapine [Clozapine] 100 mg PO TID 02/15/17 03/07/17 Esomeprazole Magnesium 40 mg PO QDAC 02/15/17 03/07/17 [Esomeprazole Magnesium] Metformin HCl 1,000 mg PO BIDWM 02/15/17 03/07/17 Mirtazapine [Mirtazapine] 7.5 mg PO QPM 02/15/17 03/07/17 Oxybutynin [Ditropan] 5 mg PO BID 02/15/17 03/07/17 Polyethylene Glycol 3350 [Glycolax] 17 gm PO DAILY 02/15/17 03/07/17 Quetiapine Fumarate [Seroquel] 400 mg PO QPM 02/15/17 03/07/17 Venlafaxine HCl [Venlafaxine HCl 150 mg PO DAILY 02/15/17 03/07/17 ER] Clonazepam [Clonazepam] 1 mg PO QPM PRN 02/17/17 03/07/17 Prazosin HCl [Prazosin HCl] 10 mg PO QPM 02/17/17 03/07/17 Trazodone HCl 100 - 200 mg PO QPM PRN 02/17/17 03/07/17 Azithromycin [Zithromax] 250 mg PO DAILY #6 tablet 03/07/17 Benzonatate [Tessalon] 100 - 200 mg PO TID PRN #20 capsule 03/07/17 - Allergies Allergies/Adverse Reactions: Allergies Allergy/AdvReac Type Severity Reaction Status Date / Time Latex, Natural Rubber Allergy Mild Rash Verified 03/07/17 07:28 acetaminophen [From Vicodin] Allergy Hives Verified 03/07/17 07:28 hydrocodone bitartrate * Allergy Hives Verified 03/07/17 07:28 [From Vicodin] Penicillins Allergy Rash Verified 03/07/17 07:28 tramadol Allergy Rash Verified 03/07/17 07:28 adhesive AdvReac Intermediate chemical Verified 03/07/17 07:28 logan haloperidol [From Haldol] AdvReac Unknown Hallucinati Verified 03/07/17 07:28 ons iodine AdvReac Unknown Rash Verified 03/07/17 07:28 latex AdvReac Unknown Respiratory Verified 03/07/17 07:28 lamotrigine [From Lamictal] AdvReac Rash Verified 03/07/17 07:28 varenicline tartrate * AdvReac Hallucinati Verified 03/07/17 07:28 [From Chantix] ons steriods AdvReac Intermediate Unknown Uncoded 03/07/17 07:28 - Social History Does the pt smoke?: Yes Smoking Status: Current every day smoker Does the pt drink ETOH?: Yes Does the pt have substance abuse?: Yes - Immunizations Immunizations are current?: Yes - POLST Patient has POLST: No POLST Status: Full Code PD ED PE NORMAL - Vitals Vital signs reviewed: Yes - General General: Alert and oriented X 3, Well developed/nourished, Other (37 y/o female apppears flush and is short of breath with audible wheezes) - HEENT HEENT: Atraumatic, PERRL, EOMI, Other (both TM's are inflamed the right more than the left. The pharynx is without the uvula and the mucous membranes are dry. ) - Neck Neck: Supple, no meningeal sign, No bony TTP - Cardiac Cardiac: RRR, No murmur - Respiratory Respiratory: No respiratory distress, Other (scattered wheezed and rhonchi) - Abdomen Abdomen: Soft, Non tender - Back Back: No CVA TTP, No spinal TTP - Derm Derm: Normal color, Warm and dry, No rash - Neuro Neuro: Alert and oriented X 3, No motor deficit, No sensory deficit, Normal speech - Psych Psych: Normal mood, Normal affect Results - Vitals Vitals: Vital Signs - 24 hr 03/07/17 03/07/17 03/07/17 07:25 09:30 09:31 Temperature 36.7 C 36.7 C Heart Rate 93 90 92 Respiratory 20 16 14 Rate Blood Pressure 121/80 122/84 H O2 Saturation 99 99 Oxygen O2 Source Room air - Labs Labs: Laboratory Tests 03/07/17 09:40 Group A Strep Rapid Negative Procedures - IVC sono (time) 0900 Bedside IVC sono: IVC measures (cm) (1.84), Euvolemia PD MEDICAL DECISION MAKING - ED course Complexity details: reviewed old records, reviewed results, re-evaluated patient , considered differential, d/w patient ED course: I [id number] female with a history of pseudotumor has developed a cough and congestion and has otitis on examination. She has a history of reactive airway disease and has wheezing today. She is administered DuoNeb treatment 10 mg of dexamethasone orally and 1 g of Rocephin IM.Today she does not require intravenous therapy. Departure - Departure Disposition: 01 Home, Self Care Clinical Impression: Otitis media Qualifiers: Otitis media type: suppurative Chronicity: acute Laterality: bilateral Recurrence: not specified as recurrent Spontaneous tympanic membrane rupture: without spontaneous rupture Qualified Code(s): H66.003 - Acute suppurative otitis media without spontaneous rupture of ear drum, bilateral Condition: Stable Instructions: ED Bronchitis Asthmatic, ED Otitis Media Acute Adult Follow-Up: Lorna Mulligan MD [Primary Care Provider] - Prescriptions: Azithromycin [Zithromax] 250 mg PO DAILY #6 tablet Benzonatate [Tessalon] 100 - 200 mg PO TID PRN #20 capsule PRN Reason: Cough
[2017-03-07] MEDS ORDERED: DEXAMETHASONE 10 MG/ML VIAL PO STA (09:15)
[2017-03-07] MEDS ORDERED: ONDANSETRON ODT 4 MG TABLET TL STA (09:15)
[2017-03-07] MEDS ORDERED: cefTRIAXone 1 GM VIAL IM STA (09:15)
[2017-03-07] MEDS ORDERED: IPRATROPIUM/ALBUTEROL 3 ML NEB INH STA (09:15)
[2017-03-07] MEDS ORDERED: DEXAMETHASONE 10 MG/ML VIAL ONE (09:26)
[2017-03-07] MEDS ORDERED: LIDOCAINE 1% 2 ML VIAL ONE (09:32)
[2017-03-07] MEDS ORDERED: ONDANSETRON ODT 4 MG TABLET ONE (09:32)
[2017-03-07] MEDS ORDERED: cefTRIAXone 1 GM VIAL ONE (09:33)
[2017-03-07] MEDS ORDERED: IPRATROPIUM/ALBUTEROL 3 ML NEB INH ONE (09:34)
[2017-03-07] MEDS ORDERED: MAGNESIUM HYDROXIDE 2,400 MG/30 ML UDC PO STA (10:09)
[2017-03-07] MEDS ORDERED: MAGNESIUM HYDROXIDE 2,400 MG/30 ML UDC ONE (10:18)
[2017-03-07 10:36] LABS: RAPID STREP SCREEN REAGENT QC YELLOW (YELLOW)
--- NOTE | 2017-03-07 10:56 | XRAY Preliminary Report ---
Exam: XR CHEST 2 VIEW PA/LAT IMPRESSION: 1. Possible mild airways disease. No consolidation. [facility] SITE ID: [id number]
--- NOTE | 2017-03-07 10:59 | XRAY Report ---
EXAM: CHEST RADIOGRAPHY EXAM DATE: 03/07/2017 10:13 AM. CLINICAL HISTORY: Cough, shortness of breath. COMPARISON: 02/13/2017. TECHNIQUE: 2 views. FINDINGS: Lungs/Pleura: No consolidation or vascular congestion. Mild bronchial wall thickening in the lower ji ng zones. No pleural effusion or pneumothorax. Mediastinum: Normal cardiomediastinal silhouette. Bones: No significant findings. IMPRESSION: 1. Possible mild airways disease. No consolidation. [facility] Referring Provider Line: [phone] SITE ID: [id number]
[2017-03-07 11:12] VITALS: BP 145/83
== END 2017-03-07 11:10 | disposition home or self-care (01) ==
LOC: EDUNIT# → ED 07:21
DX: H66.003 Acute suppurative otitis media without spontaneous rupture of ear drum, bilateral (principal); I10 Essential (primary) hypertension; J45.909 Unspecified asthma, uncomplicated; E78.00 Pure hypercholesterolemia, unspecified; E11.42 Type 2 diabetes mellitus with diabetic polyneuropathy; F17.200 Nicotine dependence, unspecified, uncomplicated; Z79.4 Long term (current) use of insulin
CPT/HCPCS: 71020; 87070; 87430; 94640; 96372; 99283; J7620; Q0162

== ENCOUNTER 2017-03-11 10:10 | Outpatient (CLI) | payer MEDICARE, MEDICAID ==
[2017-03-11 10:24] LABS: BASOPHILS # (AUTO) 0.1 10^3/uL (0.0-0.1); HCT - HEMATOCRIT 47.2 % (37.0-47.0); HGB - HEMOGLOBIN 16.1 g/dL (12.0-16.0); LYMPHOCYTES # (AUTO) 1.9 10^3/uL (1.5-3.5); LYMPHOCYTES % (AUTO) 21.6 %; MEAN CORPUSCULAR HEMOGLOBIN 30.7 pg (27.0-31.0); MEAN CORPUSCULAR VOLUME 90.2 fL (81.0-99.0); MEAN PLATELET VOLUME 6.9 fL (7.9-10.8); MONOCYTES # (AUTO) 0.7 10^3/uL (0.0-1.0); MONOCYTES % (AUTO) 7.8 %; NEUTROPHILS # (AUTO) 6.1 10^3/uL (1.5-6.6); NEUTROPHILS % (AUTO) 69.6 %; NUCLEATED RED BLOOD CELLS AUTO 0.1 /100WBC; RED BLOOD COUNT 5.23 10^6/uL (4.20-5.40); RED CELL DISTRIBUTION WIDTH 14.5 % (12.0-15.0); UNCORRECTED WHITE BLOOD COUNT 8.8 x10^3/uL; WHITE BLOOD COUNT 8.8 x10^3/uL (4.8-10.8)
== END 2017-03-11 10:11 | disposition home or self-care (01) ==
LOC: LAB 10:10
PROVIDERS: ATTEND Psychiatry & Neurology Psychiatry
DX: Z79.899 Other long term (current) drug therapy (principal)
CPT/HCPCS: 36415; 85025

== ENCOUNTER 2017-03-14 13:08 | Emergency (ER) | payer MEDICARE, MEDICAID ==
[2017-03-14] MEDS ORDERED: SUMAtriptan 6 MG/0.5 ML VIAL SUBQ STA (14:31)
[2017-03-14] MEDS ORDERED: PROCHLORPERAZINE 10 MG/2 ML VIAL IM STA (14:32)
[2017-03-14] MEDS ORDERED: KETOROLAC 60 MG/2 ML VIAL IM STA (14:32)
[2017-03-14] MEDS ORDERED: diphenhydrAMINE INJ 50 MG/ML VIAL IM STA (14:32)
--- NOTE | 2017-03-14 14:35 | ED Physician Documentation ---
History of Present Illness - Stated complaint Stated Complaint: JOYA/LT SHOULDER PX - Chief complaint Chief Complaint: General - History obtained from History obtained from: Patient - History of Present Illness Timing: How many days ago (several) Pain level max: 8 Pain level now: 8 Improved by: dark room Worsened by: light, noise - Additonal information Additional information: Patient is a 37-year-old female who presents the emergency department with a headache for the past several days. She states that she took [id number] Excedrin Migraine without relief. She denies any fevers, recent illnesses. Also states that she is concerned she has recurrent shingles on her back. This is been present for approximately 1 week. Has not noticed any rash. Review of Systems Ten Systems: 10 systems reviewed and negative Constitutional: denies: Fever, Chills Eyes: reports: Photophobia Nose: denies: Rhinorrhea / runny nose, Congestion Throat: denies: Sore throat Cardiac: denies: Chest pain / pressure Respiratory: denies: Cough GI: denies: Abdominal Pain, Nausea, Vomiting, Diarrhea : denies: Now EGA Skin: denies: Rash Musculoskeletal: denies: Neck pain Neurologic: denies: Focal weakness, Numbness, Headache PD PAST MEDICAL HISTORY - Past Medical History Past Medical History: Yes Cardiovascular: Hypertension, High cholesterol, Other Respiratory: Asthma, Sleep apnea Neuro: Headache/migraine, Peripheral neuropathy, Seizure disorder Endocrine/Autoimmune: Type 2 diabetes GI: GERD, Ulcers, Chronic diarrhea, Other MANAGER BUDGET: None : Incontinence HEENT: None Psych: Depression, Anxiety, Bipolar disorder, Schizophrenia, ADD/ADHD, Post traumatic stress disorder, Obsessive compulsive disorder Musculoskeletal: Osteoarthritis, Osteoporosis Derm: Other drug resistant infections - Past Surgical History Past Surgical History: Yes General: Cholecystectomy /MANAGER BUDGET: Tubal ligation, Other HEENT: Tonsil/Adenoidectomy - Present Medications Home Medications: Ambulatory Orders Medication Instructions Recorded Confirmed Baclofen 10 mg PO QID PRN 10/31/16 03/14/17 Insulin Aspart (Vial) [NovoLOG 1 - 10 unit SUBQ .SLIDINGSCALE 10/31/16 03/14/17 (VIAL FOR ED USE)] Insulin Regular, Human [Humulin R 0.08 ml SUBQ BID 10/31/16 03/14/17 U-500] Zonisamide [Zonegran] 200 mg PO BID 12/02/16 03/14/17 Acetazolamide [Acetazolamide] 500 mg PO BID 02/15/17 03/14/17 Clozapine [Clozapine] 100 mg PO TID 02/15/17 03/14/17 Esomeprazole Magnesium 40 mg PO QDAC 02/15/17 03/14/17 [Esomeprazole Magnesium] Metformin HCl 1,000 mg PO BIDWM 02/15/17 03/14/17 Mirtazapine [Mirtazapine] 7.5 mg PO QPM 02/15/17 03/14/17 Oxybutynin [Ditropan] 5 mg PO BID 02/15/17 03/14/17 Polyethylene Glycol 3350 [Glycolax] 17 gm PO DAILY 02/15/17 03/14/17 Quetiapine Fumarate [Seroquel] 400 mg PO QPM 02/15/17 03/14/17 Venlafaxine HCl [Venlafaxine HCl 150 mg PO DAILY 02/15/17 03/14/17 ER] Clonazepam [Clonazepam] 1 mg PO QPM PRN 02/17/17 03/14/17 Prazosin HCl [Prazosin HCl] 10 mg PO QPM 02/17/17 03/14/17 Trazodone HCl 100 - 200 mg PO QPM PRN 02/17/17 03/14/17 Azithromycin [Zithromax] 250 mg PO DAILY #6 tablet 03/07/17 03/14/17 Benzonatate [Tessalon] 100 - 200 mg PO TID PRN #20 capsule 03/07/17 03/14/17 Lidocaine Patch 5% [Lidoderm Patch] 1 each TOP DAILY PRN #10 patch 03/14/17 - Allergies Allergies/Adverse Reactions: Allergies Allergy/AdvReac Type Severity Reaction Status Date / Time Latex, Natural Rubber Allergy Mild Rash Verified 03/14/17 13:16 acetaminophen [From Vicodin] Allergy Hives Verified 03/14/17 13:16 hydrocodone bitartrate * Allergy Hives Verified 03/14/17 13:16 [From Vicodin] Penicillins Allergy Rash Verified 03/14/17 13:16 tramadol Allergy Rash Verified 03/14/17 13:16 adhesive AdvReac Intermediate chemical Verified 03/14/17 13:16 logan haloperidol [From Haldol] AdvReac Unknown Hallucinati Verified 03/14/17 13:16 ons iodine AdvReac Unknown Rash Verified 03/14/17 13:16 latex AdvReac Unknown Respiratory Verified 03/14/17 13:16 lamotrigine [From Lamictal] AdvReac Rash Verified 03/14/17 13:16 varenicline tartrate * AdvReac Hallucinati Verified 03/14/17 13:16 [From Chantix] ons steriods AdvReac Intermediate Unknown Uncoded 03/07/17 07:28 - Social History Does the pt smoke?: Yes Smoking Status: Current every day smoker Does the pt drink ETOH?: Yes Does the pt have substance abuse?: Yes - Immunizations Immunizations are current?: Yes - POLST Patient has POLST: No POLST Status: Full Code PD ED PE NORMAL - Vitals Vital signs reviewed: Yes - General General: Alert and oriented X 3, No acute distress, Well developed/nourished - HEENT HEENT: PERRL, Ears normal, Moist mucous membranes, Pharynx benign - Neck Neck: Supple, no meningeal sign, No bony TTP - Cardiac Cardiac: RRR - Respiratory Respiratory: No respiratory distress, Clear bilaterally - Abdomen Abdomen: Soft, Non tender, Non distended - Back Back: No spinal TTP, Other (TTP over the R upper thoracic area, no midline TTP. ) - Derm Derm: Warm and dry, No rash - Neuro Neuro: Alert and oriented X 3 - Psych Psych: Normal mood, Normal affect Results - Vitals Vitals: Vital Signs - 24 hr 03/14/17 03/14/17 03/14/17 13:11 14:10 14:44 Temperature 36.4 C L 36.5 C Heart Rate 97 96 Respiratory 18 16 15 Rate Blood Pressure 117/73 124/74 O2 Saturation 96 90 L 92 03/14/17 14:59 Temperature Heart Rate 96 Respiratory 18 Rate Blood Pressure 147/94 H O2 Saturation 96 Oxygen O2 Source Room air PD MEDICAL DECISION MAKING - ED course Complexity details: re-evaluated patient, considered differential, d/w patient, d/w family ED course: Patient is a 37-year-old female who presents to the emergency department with her usual headache as well as right upper thoracic back pain. No abdominal tenderness. No vomiting. Administered Toradol, Compazine, Benadryl. Within 5 minutes she is at the nurses station and full bright lights with no residual headache, talking to the [employer]. We will have her follow-up with her PCP for further evaluation and care. We did discuss the frequency of her emergency department visits and the need for closer follow-up with her primary care provider for her chronic conditions. Patient counseled regarding signs and symptoms for which I believe and urgent re-evaluation would be necessary. Patient with good understanding of and agreement to plan and is comfortable going home at this time This document was made in part using voice recognition software. While efforts are made to proofread this document, sound alike and grammatical errors may occur. Departure - Departure Disposition: Home, Self Care Clinical Impression: Headache Back pain Qualifiers: Back pain location: thoracic back pain Chronicity: acute Back pain laterality: right Qualified Code(s): M54.6 - Pain in thoracic spine Condition: Good Instructions: ED Headache Migraine, ED Neck Back Pain General Follow-Up: Lorna Mulligan MD [Primary Care Provider] - Within 1 week Prescriptions: Lidocaine Patch 5% [Lidoderm Patch] 1 each TOP DAILY PRN #10 patch PRN Reason: back pain Comments: You need to follow up with your doctor closely for further care. this is your 37th emergency department this year and this generallly indicates you are not following closely enough with your outpatient providers. Discharge Date/Time: 03/14/17 15:01
[2017-03-14] MEDS ORDERED: KETOROLAC 60 MG/2 ML VIAL ONE (14:46)
[2017-03-14] MEDS ORDERED: PROCHLORPERAZINE 10 MG/2 ML VIAL ONE (14:46)
[2017-03-14] MEDS ORDERED: diphenhydrAMINE INJ 50 MG/ML VIAL ONE (14:46)
[2017-03-14] MEDS ORDERED: SUMAtriptan 6 MG/0.5 ML VIAL SUBQ ONE (14:46)
[2017-03-14 15:01] VITALS: BP 147/94
== END 2017-03-14 15:01 | disposition home or self-care (01) ==
LOC: ED 13:08
DX: R51 Headache (principal); I10 Essential (primary) hypertension; E78.00 Pure hypercholesterolemia, unspecified; E11.42 Type 2 diabetes mellitus with diabetic polyneuropathy; Z79.4 Long term (current) use of insulin; J45.909 Unspecified asthma, uncomplicated; G47.30 Sleep apnea, unspecified; K21.9 Gastro-esophageal reflux disease without esophagitis; M19.90 Unspecified osteoarthritis, unspecified site; Z87.11 Personal history of peptic ulcer disease; F17.200 Nicotine dependence, unspecified, uncomplicated
CPT/HCPCS: 96372; 99283; 99284

== ENCOUNTER 2017-03-16 10:50 | Outpatient (CLI) | payer MEDICARE, MEDICAID | END 2017-03-16 10:51 | disposition home or self-care (01) | LOC: SC 10:50 | PROVIDERS: ATTEND Internal Medicine Pulmonary Disease | DX: G47.33 Obstructive sleep apnea (adult) (pediatric) (principal) | CPT/HCPCS: 99213; G0463; 99212 ==

== ENCOUNTER 2017-03-18 10:49 | Outpatient (CLI) | payer MEDICARE, MEDICAID ==
[2017-03-18 11:07] LABS: BASOPHILS # (AUTO) 0.1 10^3/uL (0.0-0.1); BASOPHILS % (AUTO) 0.6 %; HCT - HEMATOCRIT 47.1 % (37.0-47.0); HGB - HEMOGLOBIN 16.1 g/dL (12.0-16.0); LYMPHOCYTES # (AUTO) 2.4 10^3/uL (1.5-3.5); LYMPHOCYTES % (AUTO) 24.2 %; MEAN CORPUSCULAR HEMOGLOBIN 30.7 pg (27.0-31.0); MEAN CORPUSCULAR HGB CONC 34.1 g/dL (32.0-36.0); MEAN CORPUSCULAR VOLUME 90.1 fL (81.0-99.0); MEAN PLATELET VOLUME 7.1 fL (7.9-10.8); MONOCYTES # (AUTO) 0.7 10^3/uL (0.0-1.0); MONOCYTES % (AUTO) 7.1 %; NEUTROPHILS # (AUTO) 6.8 10^3/uL (1.5-6.6); NEUTROPHILS % (AUTO) 68.1 %; RED BLOOD COUNT 5.23 10^6/uL (4.20-5.40); RED CELL DISTRIBUTION WIDTH 14.9 % (12.0-15.0); UNCORRECTED WHITE BLOOD COUNT 10.1 x10^3/uL; WHITE BLOOD COUNT 10.1 x10^3/uL (4.8-10.8)
== END 2017-03-18 10:50 | disposition home or self-care (01) ==
LOC: LAB 10:49
PROVIDERS: ATTEND Psychiatry & Neurology Psychiatry
DX: Z79.899 Other long term (current) drug therapy (principal)
CPT/HCPCS: 36415; 85025

== ENCOUNTER 2017-03-22 17:42 | Emergency (ER) | payer MEDICARE, MEDICAID ==
[2017-03-22 17:48] VITALS: BP 127/86
[2017-03-22] MEDS ORDERED: KETOROLAC 60 MG/2 ML VIAL IM STA (17:57)
[2017-03-22] MEDS ORDERED: oxyCODONE/ACET 5/325 Prepack 4 PO STA (17:58)
--- NOTE | 2017-03-22 18:01 | ED Physician Documentation ---
PD HPI UPPER EXT INJURY - Stated complaint Stated Complaint: LT BODY SIDE PX - Chief complaint Chief Complaint: Ext Problem - History obtained from History obtained from: Patient - History of Present Illness Location: Other (She has long-standing left shoulder pain, had x-rays in November showing calcific tendinitis of the supraspinatus which was worsening. Continues to bother her and she has been in physical therapy and has an appointment upcoming with an orthopedist for this. Needs some pain medication for it. Also for the last few days has had lateral left rib pain because she slept on it wrong. There is no cough or shortness of breath associated with this.) Review of Systems Constitutional: reports: Reviewed and negative Cardiac: reports: Reviewed and negative Respiratory: reports: Reviewed and negative PD PAST MEDICAL HISTORY - Past Medical History Cardiovascular: Hypertension, High cholesterol, Other Respiratory: Asthma, Sleep apnea Neuro: Headache/migraine, Peripheral neuropathy, Seizure disorder Endocrine/Autoimmune: Type 2 diabetes GI: GERD, Ulcers, Chronic diarrhea, Other CONVEX GRINDER: None : Incontinence HEENT: None Psych: Depression, Anxiety, Bipolar disorder, Schizophrenia, ADD/ADHD, Post traumatic stress disorder, Obsessive compulsive disorder Musculoskeletal: Osteoarthritis, Osteoporosis Derm: Other drug resistant infections - Past Surgical History Past Surgical History: Yes General: Cholecystectomy /CONVEX GRINDER: Tubal ligation, Other HEENT: Tonsil/Adenoidectomy - Present Medications Home Medications: Ambulatory Orders Medication Instructions Recorded Confirmed Insulin Aspart (Vial) [NovoLOG 1 - 10 unit SUBQ .SLIDINGSCALE 10/31/16 03/22/17 (VIAL FOR ED USE)] Insulin Regular, Human [Humulin R 0.08 ml SUBQ BID 10/31/16 03/22/17 U-500] Zonisamide [Zonegran] 200 mg PO BID 12/02/16 03/22/17 Esomeprazole Magnesium 40 mg PO QDAC 02/15/17 03/22/17 [Esomeprazole Magnesium] Metformin HCl 1,000 mg PO BIDWM 02/15/17 03/22/17 Mirtazapine [Mirtazapine] 7.5 mg PO QPM 02/15/17 03/22/17 Oxybutynin [Ditropan] 5 mg PO BID 02/15/17 03/22/17 Polyethylene Glycol 3350 [Glycolax] 17 gm PO DAILY 02/15/17 03/22/17 Quetiapine Fumarate [Seroquel] 400 mg PO QPM 02/15/17 03/22/17 Venlafaxine HCl [Venlafaxine HCl 150 mg PO DAILY 02/15/17 03/22/17 ER] acetaZOLAMIDE [Acetazolamide] 500 mg PO BID 02/15/17 03/22/17 cloZAPine [Clozapine] 100 mg PO TID 02/15/17 03/22/17 Prazosin HCl [Prazosin HCl] 10 mg PO QPM 02/17/17 03/22/17 Trazodone HCl 400 mg PO QPM PRN 02/17/17 03/22/17 clonazePAM [Clonazepam] 1 mg PO QPM PRN 02/17/17 03/22/17 Azithromycin [Zithromax] 250 mg PO DAILY #6 tablet 03/07/17 03/22/17 - Allergies Allergies/Adverse Reactions: Allergies Allergy/AdvReac Type Severity Reaction Status Date / Time Latex, Natural Rubber Allergy Mild Rash Verified 03/22/17 17:48 acetaminophen [From Vicodin] Allergy Hives Verified 03/22/17 17:48 hydrocodone bitartrate * Allergy Hives Verified 03/22/17 17:48 [From Vicodin] Penicillins Allergy Rash Verified 03/22/17 17:48 tramadol Allergy Rash Verified 03/22/17 17:48 adhesive AdvReac Intermediate chemical Verified 03/22/17 17:48 logan haloperidol [From Haldol] AdvReac Unknown Hallucinati Verified 03/22/17 17:48 ons iodine AdvReac Unknown Rash Verified 03/22/17 17:48 latex AdvReac Unknown Respiratory Verified 03/22/17 17:48 lamotrigine [From Lamictal] AdvReac Rash Verified 03/22/17 17:48 varenicline tartrate * AdvReac Hallucinati Verified 03/22/17 17:48 [From Chantix] ons steriods AdvReac Intermediate Unknown Uncoded 03/22/17 17:48 - Social History Does the pt smoke?: Yes Smoking Status: Current every day smoker Does the pt drink ETOH?: Yes Does the pt have substance abuse?: Yes - Immunizations Immunizations are current?: Yes - POLST Patient has POLST: No POLST Status: Full Code PD ED PE NORMAL - Vitals Vital signs reviewed: Yes - General General: Alert and oriented X 3, No acute distress - Neck Neck: Supple, no meningeal sign, No bony TTP - Cardiac Cardiac: RRR, No murmur - Respiratory Respiratory: No respiratory distress, Clear bilaterally - Extremities Extremities: Other (Tender to the posterior left shoulder and rhomboid musculature without chest wall tenderness. She is only able to abduct actively to a little less than 90, no better passively. MVI in the left arm and hand.) - Neuro Neuro: Alert and oriented X 3, Normal speech - Psych Psych: Normal mood, Normal affect Results - Vitals Vitals: Vital Signs - 24 hr 03/22/17 17:45 Temperature 36.5 C Heart Rate 102 H Respiratory 18 Rate Blood Pressure 127/86 H O2 Saturation 96 Oxygen O2 Source Room air PD MEDICAL DECISION MAKING - ED course ED course: 37-year-old woman has subacute to chronic left shoulder pain for which she is administered Toradol and 4 Percocet to go and encouraged to keep her primary care and orthopedics appointments. Departure - Departure Disposition: 01 Home, Self Care Clinical Impression: Left shoulder tendinitis Condition: Good Record reviewed to determine appropriate education?: Yes Instructions: ED Tendinitis Calcific Comments: Follow-up with the orthopedic surgeon as scheduled. Return if worse.
[2017-03-22] MEDS ORDERED: oxyCODONE/ACET 5/325 Prepack 4 PO ONE (18:08)
[2017-03-22] MEDS ORDERED: KETOROLAC 60 MG/2 ML VIAL ONE (18:08)
== END 2017-03-22 18:09 | disposition home or self-care (01) ==
LOC: ED 17:42
DX: M75.32 Calcific tendinitis of left shoulder (principal); I10 Essential (primary) hypertension; E11.42 Type 2 diabetes mellitus with diabetic polyneuropathy; Z79.4 Long term (current) use of insulin; E78.00 Pure hypercholesterolemia, unspecified; J45.909 Unspecified asthma, uncomplicated; K21.9 Gastro-esophageal reflux disease without esophagitis; M19.90 Unspecified osteoarthritis, unspecified site; Z87.11 Personal history of peptic ulcer disease; F17.200 Nicotine dependence, unspecified, uncomplicated
CPT/HCPCS: 96372; 99282; 99283

== ENCOUNTER 2017-04-06 10:07 | Outpatient (CLI) | payer MEDICARE, MEDICAID ==
[2017-04-06 10:20] LABS: BASOPHILS # (AUTO) 0.1 10^3/uL (0.0-0.1); BASOPHILS % (AUTO) 0.7 %; HCT - HEMATOCRIT 47.9 % (37.0-47.0); HGB - HEMOGLOBIN 16.2 g/dL (12.0-16.0); LYMPHOCYTES # (AUTO) 2.3 10^3/uL (1.5-3.5); LYMPHOCYTES % (AUTO) 25.2 %; MEAN CORPUSCULAR HEMOGLOBIN 30.6 pg (27.0-31.0); MEAN CORPUSCULAR HGB CONC 33.8 g/dL (32.0-36.0); MEAN CORPUSCULAR VOLUME 90.4 fL (81.0-99.0); MEAN PLATELET VOLUME 7.1 fL (7.9-10.8); MONOCYTES # (AUTO) 0.6 10^3/uL (0.0-1.0); MONOCYTES % (AUTO) 6.8 %; NEUTROPHILS # (AUTO) 6.2 10^3/uL (1.5-6.6); NEUTROPHILS % (AUTO) 67.3 %; NUCLEATED RED BLOOD CELLS AUTO 0.1 /100WBC; RED BLOOD COUNT 5.29 10^6/uL (4.20-5.40); RED CELL DISTRIBUTION WIDTH 14.4 % (12.0-15.0); UNCORRECTED WHITE BLOOD COUNT 9.1 x10^3/uL; WHITE BLOOD COUNT 9.1 x10^3/uL (4.8-10.8)
== END 2017-04-06 10:08 | disposition home or self-care (01) ==
LOC: LAB 10:07
PROVIDERS: ATTEND Psychiatry & Neurology Psychiatry
DX: Z79.899 Other long term (current) drug therapy (principal)
CPT/HCPCS: 36415; 85025

== ENCOUNTER 2017-04-11 15:35 | Emergency (ER) | payer MEDICARE, MEDICAID ==
[2017-04-11] MEDS ORDERED: SODIUM CHLORIDE 0.9% 1,000 ML IV ONE (15:53)
[2017-04-11] MEDS ORDERED: PROCHLORPERAZINE 10 MG/2 ML VIAL IVP STA (15:53)
[2017-04-11] MEDS ORDERED: diphenhydrAMINE INJ 50 MG/ML VIAL IVP STA (15:54)
[2017-04-11] MEDS ORDERED: PROCHLORPERAZINE 10 MG/2 ML VIAL ONE (16:03)
[2017-04-11] MEDS ORDERED: diphenhydrAMINE INJ 50 MG/ML VIAL ONE (16:03)
[2017-04-11] MEDS ORDERED: KETOROLAC 30 MG/ML VIAL IVP STA (16:38)
[2017-04-11] MEDS ORDERED: KETOROLAC 30 MG/ML VIAL ONE (16:45)
--- NOTE | 2017-04-11 16:56 | ED Physician Documentation ---
PD HPI HEADACHE - Stated complaint Stated Complaint: HEADACHE - Chief complaint Chief Complaint: Neuro - History obtained from History obtained from: Patient (Pt here for evaluation of a headache that started earlier today. she states that she has had this headache in the past. no fevers, no trauma, tried her imitrex today w/o improvement.) - History of Present Illness Timing - details: Still present Review of Systems Constitutional: denies: Fever, Chills Eyes: reports: Photophobia. denies: Loss of vision Ears: denies: Drainage/discharge Nose: denies: Congestion, Sinus pressure / pain Throat: denies: Sore throat Cardiac: denies: Chest pain / pressure Respiratory: denies: Dyspnea, Cough GI: reports: Nausea. denies: Abdominal Pain, Vomiting, Diarrhea : denies: Dysuria Skin: denies: Rash, Lesions Musculoskeletal: denies: Neck pain, Back pain Neurologic: reports: Headache. 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 : Incontinence HEENT: None Psych: Depression, Anxiety, Bipolar disorder, Schizophrenia, ADD/ADHD, Post traumatic stress disorder, Obsessive compulsive disorder Musculoskeletal: Osteoarthritis, Osteoporosis Derm: Other drug resistant infections - Past Surgical History Past Surgical History: Yes General: 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: Tubal ligation, Other HEENT: Tonsil/Adenoidectomy - Present Medications Home Medications: Ambulatory Orders Medication Instructions Recorded Confirmed Insulin Aspart (Vial) [NovoLOG 1 - 10 unit SUBQ .SLIDINGSCALE 10/31/16 04/11/17 (VIAL FOR ED USE)] Insulin Regular, Human [Humulin R 0.08 ml SUBQ BID 10/31/16 04/11/17 U-500] Zonisamide [Zonegran] 200 mg PO BID 12/02/16 04/11/17 Esomeprazole Magnesium 40 mg PO QDAC 02/15/17 04/11/17 [Esomeprazole Magnesium] Metformin HCl 1,000 mg PO BIDWM 02/15/17 04/11/17 Mirtazapine [Mirtazapine] 7.5 mg PO QPM 02/15/17 04/11/17 Quetiapine Fumarate [Seroquel] 400 mg PO QPM 02/15/17 04/11/17 Venlafaxine HCl [Venlafaxine HCl 150 mg PO DAILY 02/15/17 04/11/17 ER] acetaZOLAMIDE [Acetazolamide] 500 mg PO BID 02/15/17 04/11/17 cloZAPine [Clozapine] 100 mg PO TID 02/15/17 04/11/17 Prazosin HCl [Prazosin HCl] 10 mg PO QPM 02/17/17 04/11/17 Trazodone HCl 400 mg PO QPM PRN 02/17/17 04/11/17 Blood Sugar Diagnostic [Glucose 1 each MC QID #120 strip 03/28/17 Test Strip] Diazepam [Valium] 10 mg PO ONCE #1 tablet 03/28/17 04/11/17 SUMAtriptan [Imitrex] 25 mg ORAL DAILY PRN 04/11/17 04/11/17 - Allergies Allergies/Adverse Reactions: Allergies Allergy/AdvReac Type Severity Reaction Status Date / Time Latex, Natural Rubber Allergy Mild Rash Verified 04/11/17 15:45 acetaminophen [From Vicodin] Allergy Hives Verified 04/11/17 15:45 hydrocodone bitartrate * Allergy Hives Verified 04/11/17 15:45 [From Vicodin] Penicillins Allergy Rash Verified 04/11/17 15:45 tramadol Allergy Rash Verified 04/11/17 15:45 adhesive AdvReac Intermediate chemical Verified 04/11/17 15:45 logan haloperidol [From Haldol] AdvReac Unknown Hallucinati Verified 04/11/17 15:45 ons iodine AdvReac Unknown Rash Verified 04/11/17 15:45 latex AdvReac Unknown Respiratory Verified 04/11/17 15:45 lamotrigine [From Lamictal] AdvReac Rash Verified 04/11/17 15:45 varenicline tartrate * AdvReac Hallucinati Verified 04/11/17 15:45 [From Chantix] ons steriods AdvReac Intermediate Unknown Uncoded 04/11/17 15:45 - Social History Does the pt smoke?: Yes Smoking Status: Current every day smoker Does the pt drink ETOH?: Yes Does the pt have substance abuse?: Yes - Immunizations Immunizations are current?: Yes - POLST Patient has POLST: No POLST Status: Full Code PD ED PE NORMAL - Vitals Vital signs reviewed: Yes - General General: Alert and oriented X 3, No acute distress, Well developed/nourished - HEENT HEENT: Atraumatic, PERRL, EOMI, Ears normal, Moist mucous membranes, Pharynx benign - Neck Neck: Supple, no meningeal sign, No bony TTP - Cardiac Cardiac: RRR, No murmur, No gallop - Respiratory Respiratory: No respiratory distress, Clear bilaterally - Abdomen Abdomen: Soft, Non tender, Non distended - Derm Derm: Normal color, Warm and dry, No rash - Extremities Extremities: No edema - Neuro Neuro: Alert and oriented 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 Pt given IV meds which she states resolved her symptoms. Doubt meningitis, no need for ABX, no reported hx of trauma, has a normal neuro exam here. Will discharge home. Departure - Departure Disposition: 01 Home, Self Care Clinical Impression: Migraine Qualifiers: Migraine type: unspecified Status migrainosus presence: without status migrainosus Intractability: not intractable Qualified Code(s): G43.909 - Migraine, unspecified, not intractable, without status migrainosus Condition: Good Instructions: ED Headache Migraine Follow-Up: Lorna Mulligan MD [Primary Care Provider] - Comments: Return to the ER for any new or worsening symptoms.
[2017-04-11 16:58] VITALS: BP 113/70
== END 2017-04-11 17:00 | disposition home or self-care (01) ==
LOC: ED 15:35
DX: G43.909 Migraine, unspecified, not intractable, without status migrainosus (principal); I10 Essential (primary) hypertension; E78.00 Pure hypercholesterolemia, unspecified; J45.909 Unspecified asthma, uncomplicated; G47.30 Sleep apnea, unspecified; E11.42 Type 2 diabetes mellitus with diabetic polyneuropathy; Z79.4 Long term (current) use of insulin; K21.9 Gastro-esophageal reflux disease without esophagitis; Z87.11 Personal history of peptic ulcer disease; M19.90 Unspecified osteoarthritis, unspecified site; F17.200 Nicotine dependence, unspecified, uncomplicated
CPT/HCPCS: 96374; 96375; 99283; 99284

== ENCOUNTER 2017-04-13 19:46 | Emergency (ER) | payer MEDICARE, MEDICAID ==
[2017-04-13] MEDS ORDERED: oxyCOD/ACETAMIN 5 MG/325 MG TABLET PO STA (20:46)
--- NOTE | 2017-04-13 20:48 | ED Physician Documentation ---
PD HPI SEIZURE - Stated complaint Stated Complaint: GLF HEAD/SHOULDER PX - Chief complaint Chief Complaint: Neuro - History obtained from History obtained from: Patient, Family - History of Present Illness Timing - onset: Other (37-year-old woman with seizures versus pseudoseizures. She had A tonic-clonic event tonight during which time she hit the back of her right head on the floor. She has had 2 episodes of vomiting since then. 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 : Incontinence HEENT: None Psych: Depression, Anxiety, Bipolar disorder, Schizophrenia, ADD/ADHD, Post traumatic stress disorder, Obsessive compulsive disorder Musculoskeletal: Osteoarthritis, Osteoporosis Derm: Other drug resistant infections - Past Surgical History Past Surgical History: Yes General: 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: Tubal 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, Other HEENT: Tonsil/Adenoidectomy - Present Medications Home Medications: Ambulatory Orders Medication Instructions Recorded Confirmed Insulin Aspart (Vial) [NovoLOG 1 - 10 unit SUBQ .SLIDINGSCALE 10/31/16 04/11/17 (VIAL FOR ED USE)] Insulin Regular, Human [Humulin R 0.08 ml SUBQ BID 10/31/16 04/11/17 U-500] Zonisamide [Zonegran] 200 mg PO BID 12/02/16 04/11/17 Esomeprazole Magnesium 40 mg PO QDAC 02/15/17 04/11/17 [Esomeprazole Magnesium] Metformin HCl 1,000 mg PO BIDWM 02/15/17 04/11/17 Mirtazapine [Mirtazapine] 7.5 mg PO QPM 02/15/17 04/11/17 Quetiapine Fumarate [Seroquel] 400 mg PO QPM 02/15/17 04/11/17 Venlafaxine HCl [Venlafaxine HCl 150 mg PO DAILY 02/15/17 04/11/17 ER] acetaZOLAMIDE [Acetazolamide] 500 mg PO BID 02/15/17 04/11/17 cloZAPine [Clozapine] 100 mg PO TID 02/15/17 04/11/17 Prazosin HCl [Prazosin HCl] 10 mg PO QPM 02/17/17 04/11/17 Trazodone HCl 400 mg PO QPM PRN 02/17/17 04/11/17 Blood Sugar Diagnostic [Glucose 1 each MC QID #120 strip 03/28/17 Test Strip] Diazepam [Valium] 10 mg PO ONCE #1 tablet 03/28/17 04/11/17 SUMAtriptan [Imitrex] 25 mg ORAL DAILY PRN 04/11/17 04/11/17 - Allergies Allergies/Adverse Reactions: Allergies Allergy/AdvReac Type Severity Reaction Status Date / Time Latex, Natural Rubber Allergy Mild Rash Verified 04/11/17 15:45 acetaminophen [From Vicodin] Allergy Hives Verified 04/11/17 15:45 hydrocodone bitartrate * Allergy Hives Verified 04/11/17 15:45 [From Vicodin] Penicillins Allergy Rash Verified 04/11/17 15:45 tramadol Allergy Rash Verified 04/11/17 15:45 adhesive AdvReac Intermediate chemical Verified 04/11/17 15:45 logan haloperidol [From Haldol] AdvReac Unknown Hallucinati Verified 04/11/17 15:45 ons iodine AdvReac Unknown Rash Verified 04/11/17 15:45 latex AdvReac Unknown Respiratory Verified 04/11/17 15:45 lamotrigine [From Lamictal] AdvReac Rash Verified 04/11/17 15:45 varenicline tartrate * AdvReac Hallucinati Verified 04/11/17 15:45 [From Chantix] ons steriods AdvReac Intermediate Unknown Uncoded 04/11/17 15:45 - Social History Does the pt smoke?: Yes Smoking Status: Current every day smoker Does the pt drink ETOH?: Yes Does the pt have substance abuse?: Yes - Immunizations Immunizations are current?: Yes - POLST Patient has POLST: No POLST Status: Full Code PD ED PE NORMAL - Vitals Vital signs reviewed: Yes - General General: Alert and oriented X 3, No acute distress - HEENT HEENT: PERRL, EOMI - Neck Neck: Supple, no meningeal sign, No bony TTP - Extremities Extremities: Other (Mild tenderness of the anterior left shoulder with moderately limited range of motion, only able to abduct to 90% but painless internal and external rotation.) - Neuro Neuro: Alert and oriented X 3, Normal speech Eye Opening: Spontaneous Motor: Obeys Commands Verbal: Oriented GCS Score: 15 - Psych Psych: Normal mood, Normal affect Results - Vitals Vitals: Vital Signs - 24 hr 04/13/17 04/13/17 19:59 20:22 Temperature 36.8 C Heart Rate 94 90 Respiratory 16 24 Rate Blood Pressure 124/84 H 98/70 O2 Saturation 95 93 Oxygen O2 Source Room air - Rads (name of study) CAT scan of the head and left shoulder x-ray Radiology: EMP read contemporaneously (Normal) PD MEDICAL DECISION MAKING - ED course ED course: 37-year-old woman status post seizure versus pseudoseizure, a recurrent phenomenon for her. With shoulder and head injury, vomiting necessitating imaging of the head. Both negative. Comfortable and well-appearing after a single Percocet on recheck. Departure - Departure Disposition: 01 Home, Self Care Clinical Impression: Seizure disorder, Concussion with no loss of consciousness, Left shoulder tendinitis Condition: Good Record reviewed to determine appropriate education?: Yes Instructions: ED Head Injury Closed, ED Seizure Recurrent Comments: Continue current medications. Follow-up with your neurologist for EEG as scheduled. Return if worse.
[2017-04-13] MEDS ORDERED: oxyCOD/ACETAMIN 5 MG/325 MG TABLET PO ONE (20:56)
--- NOTE | 2017-04-13 21:43 | CT Preliminary Report ---
Exam: CT HEAD W/O IMPRESSION: Normal head CT. [facility] SITE ID: [id number]
--- NOTE | 2017-04-13 21:46 | XRAY Preliminary Report ---
Exam: XR SHOULDER 3 VIEW LT IMPRESSION: Normal shoulder radiography. [facility] SITE ID: [id number]
--- NOTE | 2017-04-13 21:49 | XRAY Report ---
EXAM: LEFT SHOULDER RADIOGRAPHY EXAM DATE: 04/13/2017 09:10 PM. CLINICAL HISTORY: Shoulder inj/sz. COMPARISON: 04/01/2017. TECHNIQUE: 3 views. FINDINGS: Bones: Normal. No fracture or bone lesion. Joints: The glenohumeral and acromioclavicular joints are normal. Soft tissues: The visualized hemithorax is unremarkable. No soft tissue swelling. IMPRESSION: Normal shoulder radiography. [facility] Referring Provider Line: [phone] SITE ID: [id number]
[2017-04-13] MEDS ORDERED: oxyCODONE/ACET 5/325 Prepack 4 PO STA (21:54)
[2017-04-13 22:00] VITALS: BP 108/66
[2017-04-13] MEDS ORDERED: oxyCODONE/ACET 5/325 Prepack 4 PO ONE (22:02)
--- NOTE | 2017-04-13 22:20 | CT Report ---
EXAM: CT HEAD EXAM DATE: 04/13/2017 09:08 PM. CLINICAL HISTORY: Head injury/seizure/vomiting. COMPARISON: 09/04/2016. TECHNIQUE: Multiaxial CT images were obtained from the foramen magnum to the vertex. Reformats: Coron al. IV contrast: None. In accordance with CT protocol optimization, one or more of the following dose reduction techniques w ere utilized for this exam: automated exposure control, adjustment of mA and/or KV based on patient s ize, or use of iterative reconstructive technique. FINDINGS: Parenchyma: No intraparenchymal hemorrhage. No evidence of mass, midline shift, or CT findings of inf arction. Mejia-white differentiation is distinct. Extraaxial Spaces: Normal for age. No subdural or epidural collections identified. Ventricles: Normal in size and position. Sinuses and Orbits: Imaged paranasal sinuses, orbits, and mastoids show no significant abnormality. Bones: No evidence of fracture or calvarial defect. Other: None. IMPRESSION: Normal head CT. [facility] Referring Provider Line: [phone] SITE ID: [id number]
== END 2017-04-13 22:06 | disposition home or self-care (01) ==
LOC: ED 19:46
DX: G40.909 Epilepsy, unspecified, not intractable, without status epilepticus (principal); S06.0X0A Concussion without loss of consciousness, initial encounter; W18.39XA Other fall on same level, initial encounter; M75.92 Shoulder lesion, unspecified, left shoulder; I10 Essential (primary) hypertension; E78.00 Pure hypercholesterolemia, unspecified; E11.42 Type 2 diabetes mellitus with diabetic polyneuropathy; Z79.4 Long term (current) use of insulin; G47.30 Sleep apnea, unspecified; J45.909 Unspecified asthma, uncomplicated; K21.9 Gastro-esophageal reflux disease without esophagitis; Z87.11 Personal history of peptic ulcer disease; M19.90 Unspecified osteoarthritis, unspecified site; F17.200 Nicotine dependence, unspecified, uncomplicated
CPT/HCPCS: 70450; 73030; 99284; A9270

== ENCOUNTER 2017-04-15 04:46 | Outpatient (CLI) | payer MEDICARE, MEDICAID | END 2017-04-15 04:47 | disposition EMS.NT | LOC: EMS 04:46 | PROVIDERS: ATTEND Surgery | DX: R55 Syncope and collapse (principal) ==

== ENCOUNTER 2017-04-17 16:56 | Emergency (ER) | payer MEDICARE, MEDICAID ==
[2017-04-17 17:39] VITALS: BP 118/82
== END 2017-04-17 19:10 | disposition left against medical advice (07) ==
LOC: ED 16:56
DX: Z53.21 Procedure and treatment not carried out due to patient leaving prior to being seen by health care provider (principal)

== ENCOUNTER 2017-04-18 14:02 | Emergency (ER) | payer MEDICARE, MEDICAID ==
[2017-04-18 14:07] VITALS: BP 127/86
== END 2017-04-18 16:10 | disposition left against medical advice (07) ==
LOC: ED 14:02
DX: Z53.21 Procedure and treatment not carried out due to patient leaving prior to being seen by health care provider (principal)
CPT/HCPCS: 87275; 87276

== ENCOUNTER 2017-04-20 03:41 | Outpatient (CLI) | payer MEDICARE, MEDICAID | END 2017-04-20 03:42 | disposition critical access hospital (66) | LOC: EMS 03:41 | PROVIDERS: ATTEND Surgery | DX: R11.2 Nausea with vomiting, unspecified (principal); R19.7 Diarrhea, unspecified | CPT/HCPCS: A0425; A0429 ==

== ENCOUNTER 2017-04-20 03:46 | Emergency (ER) | payer MEDICARE, MEDICAID ==
[2017-04-20] MEDS ORDERED: ONDANSETRON ODT 4 MG TABLET TL STA (04:03)
[2017-04-20] MEDS ORDERED: DIPHENOX/ATROPINE 2.5/0.025 MG TABLET PO STA (04:04)
[2017-04-20] MEDS ORDERED: oxyCODONE 5 MG TABLET PO STA (04:05)
[2017-04-20] MEDS ORDERED: DIPHENOX/ATROPINE 2.5/0.025 MG TABLET PO ONE (04:14)
[2017-04-20] MEDS ORDERED: oxyCODONE 5 MG TABLET ONE (04:14)
[2017-04-20] MEDS ORDERED: ONDANSETRON ODT 4 MG TABLET ONE (04:14)
[2017-04-20 04:19] LABS: BILIRUBIN,URINE NEGATIVE (NEGATIVE)
[2017-04-20 04:21] LABS: UA CHARGE (STRIP ONLY) YES; UR CULTURE IF IND NOT INDICATED
[2017-04-20] MEDS ORDERED: HYDROmorphone 1 MG/ML SYRINGE IM STA (04:44)
[2017-04-20] MEDS ORDERED: PROMETHAZINE 25 MG/1 ML VIAL IM STA (04:45)
[2017-04-20] MEDS ORDERED: PROMETHAZINE 25 MG/1 ML VIAL ONE (04:58)
[2017-04-20] MEDS ORDERED: HYDROmorphone 1 MG/ML SYRINGE ONE (04:58)
--- NOTE | 2017-04-20 06:11 | ED Physician Documentation ---
PD HPI NVD - Stated complaint Stated Complaint: D/V - Chief complaint Chief Complaint: Abd Pain - History obtained from History obtained from: Patient - History of Present Illness Timing - onset: How many days ago (3-4) Timing - duration: Days (3-4) Timing - details: Gradual onset, Still present Associated symptoms: Other (nausea with vomiting about 4 times daily and diarrhea about 3 times daily. Feels generally ill. Has some cough.). No: Fever , Abdominal pain Contributing factors: Sick contact (she says her is sick with this as well.). No: Bad food, Travel, Recent antibiotics Improved by: No: Vomiting Worsened by: Eating Similar symptoms before: Has not had sx before Recently seen: Not recently seen (came to ED couple times the past 2 days but then did not stay to be seen after registered.) Review of Systems Constitutional: reports: Chills, Myalgias. denies: Fever Nose: reports: Congestion Cardiac: denies: Chest pain / pressure Respiratory: reports: Cough. denies: Dyspnea GI: reports: Nausea, Vomiting, Diarrhea. denies: Abdominal Pain : denies: Dysuria, Frequency Skin: denies: Rash Neurologic: reports: Generalized weakness, Headache (common for her migraines). 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 : Incontinence HEENT: None Psych: Depression, Anxiety, Bipolar disorder, Schizophrenia, ADD/ADHD, Post traumatic stress disorder, Obsessive compulsive disorder Musculoskeletal: Osteoarthritis, Osteoporosis Derm: Other drug resistant infections - Past Surgical History Past Surgical History: Yes General: 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, Other HEENT: Tonsil/Adenoidectomy - Present Medications Home Medications: Ambulatory Orders Medication Instructions Recorded Confirmed Insulin Aspart (Vial) [NovoLOG 1 - 10 unit SUBQ .SLIDINGSCALE 10/31/16 04/20/17 (VIAL FOR ED USE)] Insulin Regular, Human [Humulin R 0.08 ml SUBQ BID 10/31/16 04/20/17 U-500] Zonisamide [Zonegran] 200 mg PO BID 12/02/16 04/20/17 Esomeprazole Magnesium 40 mg PO QDAC 02/15/17 04/20/17 [Esomeprazole Magnesium] Metformin HCl 1,000 mg PO BIDWM 02/15/17 04/20/17 Mirtazapine [Mirtazapine] 7.5 mg PO QPM 02/15/17 04/20/17 Quetiapine Fumarate [Seroquel] 400 mg PO QPM 02/15/17 04/20/17 Venlafaxine HCl [Venlafaxine HCl 150 mg PO DAILY 02/15/17 04/20/17 ER] acetaZOLAMIDE [Acetazolamide] 500 mg PO BID 02/15/17 04/20/17 cloZAPine [Clozapine] 100 mg PO TID 02/15/17 04/20/17 Prazosin HCl [Prazosin HCl] 10 mg PO QPM 02/17/17 04/20/17 Trazodone HCl 400 mg PO QPM PRN 02/17/17 04/20/17 Blood Sugar Diagnostic [Glucose 1 each MC QID #120 strip 03/28/17 04/20/17 Test Strip] SUMAtriptan [Imitrex] 25 mg ORAL DAILY PRN 04/11/17 04/20/17 Diphenoxylate HCl/Atropine 1 each PO Q6H PRN #12 tablet 04/20/17 [Diphenoxylate-Atrop 2.5-0.025] Promethazine [Phenergan] 25 mg PO Q6H PRN #15 tab 04/20/17 - Allergies Allergies/Adverse Reactions: Allergies Allergy/AdvReac Type Severity Reaction Status Date / Time Latex, Natural Rubber Allergy Mild Rash Verified 04/20/17 03:50 acetaminophen [From Vicodin] Allergy Hives Verified 04/20/17 03:50 hydrocodone bitartrate * Allergy Hives Verified 04/20/17 03:50 [From Vicodin] Penicillins Allergy Rash Verified 04/20/17 03:50 tramadol Allergy Rash Verified 04/20/17 03:50 adhesive AdvReac Intermediate chemical Verified 04/20/17 03:50 logan haloperidol [From Haldol] AdvReac Unknown Hallucinati Verified 04/20/17 03:50 ons iodine AdvReac Unknown Rash Verified 04/20/17 03:50 latex AdvReac Unknown Respiratory Verified 04/20/17 03:50 lamotrigine [From Lamictal] AdvReac Rash Verified 04/20/17 03:50 varenicline tartrate * AdvReac Hallucinati Verified 04/20/17 03:50 [From Chantix] ons steriods AdvReac Intermediate Unknown Uncoded 04/11/17 15:45 - Social History Does the pt smoke?: Yes Smoking Status: Current every day smoker Does the pt drink ETOH?: Yes Does the pt have substance abuse?: Yes - Immunizations Immunizations are current?: Yes - POLST Patient has POLST: No POLST Status: Full Code PD ED PE NORMAL - Vitals Vital signs reviewed: Yes - General General: Alert and oriented X 3, Well developed/nourished - HEENT HEENT: Moist mucous membranes, Pharynx benign - Neck Neck: Supple, no meningeal sign, No adenopathy - Cardiac Cardiac: RRR, No murmur - Respiratory Respiratory: Clear bilaterally - Abdomen Abdomen: Normal bowel sounds, Soft, Non distended, Other (mild tender central abdomen without guarding nor percussion tenderness. ) - Female Female : Deferred - Rectal Rectal: Deferred - Back Back: No CVA TTP - Derm Derm: Warm and dry, No rash - Neuro Neuro: Alert and oriented X 3, No motor deficit, Normal speech Results - Vitals Vitals: Vital Signs - 24 hr 04/20/17 04/20/17 04/20/17 03:52 05:27 06:17 Temperature 36.9 C 36.7 C Heart Rate 80 78 76 Respiratory 18 16 18 Rate Blood Pressure 119/77 120/74 124/79 O2 Saturation 95 97 95 Oxygen O2 Source Nasal cannula - Labs Labs: Laboratory Tests 04/20/17 04/20/17 04:13 04:13 Urine Color YELLOW Urine Clarity CLEAR Urine pH 6.0 Ur Specific [place] >=1.030 H Urine Protein NEGATIVE Urine Glucose (UA) 250 H Urine Ketones NEGATIVE Urine Occult Blood NEGATIVE Urine Nitrite NEGATIVE Urine Bilirubin NEGATIVE Urine Urobilinogen 0.2 (NORMAL) Ur Leukocyte Esterase NEGATIVE Ur Microscopic Review NOT INDICATED Urine Culture Comments NOT INDICATED Influenza A (Rapid) Negative Influenza B (Rapid) Negative Influenza Types A,B Ag - PD MEDICAL DECISION MAKING - ED course Complexity details: re-evaluated patient (she is commonly difficult IV start and does not look too ill, so talked with her and shared decision to go with IM/ PO meds for symptoms and target then oral rehydration at home. She is feeling better with IM/PO meds for nausea and headache. Taking oral sips and feeling better. Discharged home. ), considered differential, d/w patient Departure - Departure Disposition: 01 Home, Self Care Clinical Impression: Nausea vomiting and diarrhea, Flu-like symptoms Condition: Stable Record reviewed to determine appropriate education?: Yes Instructions: ED Nausea Vomiting Follow-Up: Lorna Mulligan MD [Primary Care Provider] - Prescriptions: Diphenoxylate HCl/Atropine [Diphenoxylate-Atrop 2.5-0.025] 1 each PO Q6H PRN # 12 tablet PRN Reason: Diarrhea Promethazine [Phenergan] 25 mg PO Q6H PRN #15 tab PRN Reason: Nausea / Vomiting Comments: Continue usual medications. Small frequent fluids and start with bland food such as rice cereals [place]. Increased intake as able. Promethazine if needed for nausea. Lomotil if needed for diarrhea. Tylenol for pains. I presume this will improve over the next couple of days. Recheck if not better in the next day or 2. Discharge Date/Time: 04/20/17 06:18
[2017-04-20 06:18] VITALS: BP 124/79
== END 2017-04-20 06:18 | disposition home or self-care (01) ==
LOC: EDUNIT# → ED 03:46 → SUPCPDRO 03:46 → ED 06:18
DX: R11.2 Nausea with vomiting, unspecified (principal); R19.7 Diarrhea, unspecified; R05 Cough; I10 Essential (primary) hypertension; E78.00 Pure hypercholesterolemia, unspecified; J45.909 Unspecified asthma, uncomplicated; G40.909 Epilepsy, unspecified, not intractable, without status epilepticus; E11.42 Type 2 diabetes mellitus with diabetic polyneuropathy; Z79.4 Long term (current) use of insulin; K21.9 Gastro-esophageal reflux disease without esophagitis; M19.90 Unspecified osteoarthritis, unspecified site; Z87.11 Personal history of peptic ulcer disease; F17.200 Nicotine dependence, unspecified, uncomplicated
CPT/HCPCS: 81003; 87275; 87276; 96372; 99283; 99284; A9270; J1170; Q0162; 81001; 87086

== ENCOUNTER 2017-04-23 09:13 | Outpatient (CLI) | payer MEDICARE, MEDICAID ==
[2017-04-23 09:30] LABS: BASOPHILS # (AUTO) 0.1 10^3/uL (0.0-0.1); BASOPHILS % (AUTO) 0.5 %; HCT - HEMATOCRIT 47.5 % (37.0-47.0); HGB - HEMOGLOBIN 15.8 g/dL (12.0-16.0); LYMPHOCYTES # (AUTO) 2.2 10^3/uL (1.5-3.5); LYMPHOCYTES % (AUTO) 18.6 %; MEAN CORPUSCULAR HEMOGLOBIN 29.9 pg (27.0-31.0); MEAN CORPUSCULAR HGB CONC 33.2 g/dL (32.0-36.0); MEAN CORPUSCULAR VOLUME 90.2 fL (81.0-99.0); MONOCYTES # (AUTO) 0.8 10^3/uL (0.0-1.0); MONOCYTES % (AUTO) 6.6 %; NEUTROPHILS # (AUTO) 8.7 10^3/uL (1.5-6.6); NEUTROPHILS % (AUTO) 74.3 %; RED BLOOD COUNT 5.27 10^6/uL (4.20-5.40); RED CELL DISTRIBUTION WIDTH 14.2 % (12.0-15.0); UNCORRECTED WHITE BLOOD COUNT 11.7 x10^3/uL; WHITE BLOOD COUNT 11.7 x10^3/uL (4.8-10.8)
== END 2017-04-23 09:14 | disposition home or self-care (01) ==
LOC: LAB 09:13
PROVIDERS: ATTEND Psychiatry & Neurology Psychiatry
DX: Z79.899 Other long term (current) drug therapy (principal)
CPT/HCPCS: 36415; 85025

== ENCOUNTER 2017-04-29 19:48 | Emergency (ER) | payer MEDICARE, MEDICAID ==
[2017-04-29] MEDS ORDERED: KETOROLAC 60 MG/2 ML VIAL IM STA (21:06)
[2017-04-29] MEDS ORDERED: METOCLOPRAMIDE 10 MG TABLET PO STA (21:06)
[2017-04-29] MEDS: DEXAMETHASONE 10 MG/ML VIAL PO STA ×2 (21:19→21:33)
[2017-04-29] MEDS ORDERED: METOCLOPRAMIDE 10 MG TABLET ONE (21:21)
[2017-04-29] MEDS ORDERED: KETOROLAC 60 MG/2 ML VIAL ONE (21:22)
[2017-04-29] MEDS ORDERED: DEXAMETHASONE 10 MG/ML VIAL ONE (21:22)
--- NOTE | 2017-04-29 21:45 | ED Physician Documentation ---
PD HPI HEADACHE - Stated complaint Stated Complaint: JOYA - Chief complaint Chief Complaint: Neuro - History obtained from History obtained from: Patient - History of Present Illness Timing - onset: Chronic Timing - details: Gradual onset, Still present Location: Front Quality: Aching Associated symptoms: No: Fever, Stiff neck, Nausea, Vomiting, Weakness, Numbness Similar symptoms before: Work up / diagnostics, Treatment, Follow up Recently seen: Emergency Dept - Additional information Additional information: Patient is a 37 year old female with a history of idiopathic intracranial hypertension and multiple ER visits is presenting to the emergency department for a headache. patient states that she is supposed to get an LP soon, but if she had a headache her doctor told her to come to the hospital. Patient denied any neurological complaints. Review of Systems Constitutional: denies: Fever, Chills Eyes: denies: Loss of vision, Decreased vision, Photophobia Ears: denies: Ear pain, Drainage/discharge Nose: reports: Sinus pressure / pain. denies: Congestion Throat: denies: Oral lesions / sores, Sore throat Cardiac: reports: Reviewed and negative Respiratory: reports: Reviewed and negative GI: reports: Reviewed and negative : reports: Reviewed and negative Skin: reports: Reviewed and negative Musculoskeletal: reports: Reviewed and negative Neurologic: reports: Headache. 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 : Incontinence HEENT: None Psych: Depression, Anxiety, Bipolar disorder, Schizophrenia, ADD/ADHD, Post traumatic stress disorder, Obsessive compulsive disorder Musculoskeletal: Osteoarthritis, Osteoporosis Derm: Other drug resistant infections - Past Surgical History Past Surgical History: Yes General: Cholecystectomy /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 OPERATOR: Tubal ligation, Other HEENT: Tonsil/Adenoidectomy - Present Medications Home Medications: Ambulatory Orders Medication Instructions Recorded Confirmed Insulin Aspart (Vial) [NovoLOG 1 - 10 unit SUBQ .SLIDINGSCALE 10/31/16 04/20/17 (VIAL FOR ED USE)] Insulin Regular, Human [Humulin R 0.08 ml SUBQ BID 10/31/16 04/20/17 U-500] Zonisamide [Zonegran] 200 mg PO BID 12/02/16 04/20/17 Esomeprazole Magnesium 40 mg PO QDAC 02/15/17 04/20/17 [Esomeprazole Magnesium] Metformin HCl 1,000 mg PO BIDWM 02/15/17 04/20/17 Mirtazapine [Mirtazapine] 7.5 mg PO QPM 02/15/17 04/20/17 Quetiapine Fumarate [Seroquel] 400 mg PO QPM 02/15/17 04/20/17 Venlafaxine HCl [Venlafaxine HCl 150 mg PO DAILY 02/15/17 04/20/17 ER] acetaZOLAMIDE [Acetazolamide] 500 mg PO BID 02/15/17 04/20/17 cloZAPine [Clozapine] 100 mg PO TID 02/15/17 04/20/17 Prazosin HCl [Prazosin HCl] 10 mg PO QPM 02/17/17 04/20/17 Trazodone HCl 400 mg PO QPM PRN 02/17/17 04/20/17 Blood Sugar Diagnostic [Glucose 1 each MC QID #120 strip 03/28/17 04/20/17 Test Strip] SUMAtriptan [Imitrex] 25 mg ORAL DAILY PRN 04/11/17 04/20/17 Diphenoxylate HCl/Atropine 1 each PO Q6H PRN #12 tablet 04/20/17 [Diphenoxylate-Atrop 2.5-0.025] Promethazine [Phenergan] 25 mg PO Q6H PRN #15 tab 04/20/17 - Allergies Allergies/Adverse Reactions: Allergies Allergy/AdvReac Type Severity Reaction Status Date / Time Latex, Natural Rubber Allergy Mild Rash Verified 04/20/17 03:50 acetaminophen [From Vicodin] Allergy Hives Verified 04/20/17 03:50 hydrocodone bitartrate * Allergy Hives Verified 04/20/17 03:50 [From Vicodin] Penicillins Allergy Rash Verified 04/20/17 03:50 tramadol Allergy Rash Verified 04/20/17 03:50 adhesive AdvReac Intermediate chemical Verified 04/20/17 03:50 logan haloperidol [From Haldol] AdvReac Unknown Hallucinati Verified 04/20/17 03:50 ons iodine AdvReac Unknown Rash Verified 04/20/17 03:50 latex AdvReac Unknown Respiratory Verified 04/20/17 03:50 lamotrigine [From Lamictal] AdvReac Rash Verified 04/20/17 03:50 varenicline tartrate * AdvReac Hallucinati Verified 04/20/17 03:50 [From Chantix] ons steriods AdvReac Intermediate Unknown Uncoded 04/11/17 15:45 - Social History Does the pt smoke?: Yes Smoking Status: Current every day smoker Does the pt drink ETOH?: Yes Does the pt have substance abuse?: Yes - Immunizations Immunizations are current?: Yes - POLST Patient has POLST: No POLST Status: Full Code PD ED PE NORMAL - General General: Alert and oriented X 3, No acute distress, Well developed/nourished - HEENT HEENT: Atraumatic, PERRL, Moist mucous membranes, Pharynx benign - Neck Neck: Supple, no meningeal sign, No JVD - Cardiac Cardiac: RRR, No murmur - Respiratory Respiratory: No respiratory distress - Abdomen Abdomen: Non distended - Derm Derm: Normal color, Warm and dry, No rash - Extremities Extremities: No deformity, No edema - Neuro Neuro: Alert and oriented X 3, No motor deficit, No sensory deficit, Normal speech Eye Opening: Spontaneous Motor: Obeys Commands Verbal: Oriented GCS Score: 15 - Psych Psych: Normal mood Results - Vitals Vitals: Vital Signs - 24 hr 04/29/17 04/29/17 20:11 21:53 Temperature 36.4 C L Heart Rate 91 68 Respiratory 16 16 Rate Blood Pressure 137/79 H 130/68 O2 Saturation 98 99 Oxygen O2 Source Room air PD MEDICAL DECISION MAKING - ED course Complexity details: reviewed old records, reviewed results, re-evaluated patient , considered differential, d/w patient ED course: Patient was seen and examined at bedside. Patient was given toradol, reglan and oral hydration. Patient responded well after a short time and asked if she could go home. Patient required no further work up and was stable for discharge with outpatient follow up. Departure - Departure Disposition: 01 Home, Self Care Clinical Impression: Headache, Idiopathic intracranial hypertension Condition: Good Instructions: ED Cephalgia Unspecified Follow-Up: Lorna Mulligan MD [Primary Care Provider] - Within 3 Days Comments: As you know the only way to control your headaches will be with an LP. You will need to follow up with your doctor as planned for the lp. You may return to the emergency department at any time for new, worsening or uncontrollable symptoms. Discharge Date/Time: 04/29/17 21:53
[2017-04-29 21:54] VITALS: BP 130/68
== END 2017-04-29 21:53 | disposition home or self-care (01) ==
LOC: ED 19:48
DX: R51 Headache (principal); G93.2 Benign intracranial hypertension; E78.00 Pure hypercholesterolemia, unspecified; E11.42 Type 2 diabetes mellitus with diabetic polyneuropathy; Z79.4 Long term (current) use of insulin; K21.9 Gastro-esophageal reflux disease without esophagitis; M19.90 Unspecified osteoarthritis, unspecified site; Z87.11 Personal history of peptic ulcer disease; F17.200 Nicotine dependence, unspecified, uncomplicated
CPT/HCPCS: 96372; 99283; A9270

== ENCOUNTER 2017-04-30 19:25 | Outpatient (CLI) | payer MEDICARE, MEDICAID | END 2017-04-30 19:26 | disposition critical access hospital (66) | LOC: EMS 19:25 | PROVIDERS: ATTEND Surgery | DX: R56.9 Unspecified convulsions (principal) | CPT/HCPCS: A0425; A0429 ==

== ENCOUNTER 2017-04-30 19:28 | Emergency (ER) | payer MEDICARE, MEDICAID ==
[2017-04-30] MEDS ORDERED: SUMAtriptan 6 MG/0.5 ML VIAL SUBQ STA (19:34)
[2017-04-30] MEDS ORDERED: diphenhydrAMINE INJ 50 MG/ML VIAL IM STA (19:34)
[2017-04-30] MEDS ORDERED: PROCHLORPERAZINE 10 MG/2 ML VIAL IVP STA (19:34)
[2017-04-30] MEDS ORDERED: KETOROLAC 30 MG/ML VIAL IM STA (19:34)
--- NOTE | 2017-04-30 19:41 | ED Physician Documentation ---
PD HPI HEADACHE - Stated complaint Stated Complaint: seizure - Chief complaint Chief Complaint: Neuro - History obtained from History obtained from: Patient - History of Present Illness Timing - onset: Other (37-year-old woman with long history of headaches, potential history of intracranial idiopathic hypertension, although this diagnosis and is in question by her new neurologist. She presents with headache , frontal and global of several hours duration associated with light sensitivity , spots in her peripheral vision, and the headache is worse when she is supine.) Review of Systems Constitutional: denies: Fever, Chills Nose: denies: Rhinorrhea / runny nose, Congestion GI: reports: Vomiting. 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 : Incontinence HEENT: None Psych: Depression, Anxiety, Bipolar disorder, Schizophrenia, ADD/ADHD, Post traumatic stress disorder, Obsessive compulsive disorder Musculoskeletal: Osteoarthritis, Osteoporosis Derm: Other drug resistant infections - Past Surgical History Past Surgical History: Yes General: 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: Tubal ligation, Other HEENT: Tonsil/Adenoidectomy - Present Medications Home Medications: Ambulatory Orders Medication Instructions Recorded Confirmed Insulin Aspart (Vial) [NovoLOG 1 - 10 unit SUBQ .SLIDINGSCALE 10/31/16 04/20/17 (VIAL FOR ED USE)] Insulin Regular, Human [Humulin R 0.08 ml SUBQ BID 10/31/16 04/20/17 U-500] Zonisamide [Zonegran] 200 mg PO BID 12/02/16 04/20/17 Esomeprazole Magnesium 40 mg PO QDAC 02/15/17 04/20/17 [Esomeprazole Magnesium] Metformin HCl 1,000 mg PO BIDWM 02/15/17 04/20/17 Mirtazapine [Mirtazapine] 7.5 mg PO QPM 02/15/17 04/20/17 Quetiapine Fumarate [Seroquel] 400 mg PO QPM 02/15/17 04/20/17 Venlafaxine HCl [Venlafaxine HCl 150 mg PO DAILY 02/15/17 04/20/17 ER] acetaZOLAMIDE [Acetazolamide] 500 mg PO BID 02/15/17 04/20/17 cloZAPine [Clozapine] 100 mg PO TID 02/15/17 04/20/17 Prazosin HCl [Prazosin HCl] 10 mg PO QPM 02/17/17 04/20/17 Trazodone HCl 400 mg PO QPM PRN 02/17/17 04/20/17 Blood Sugar Diagnostic [Glucose 1 each MC QID #120 strip 03/28/17 04/20/17 Test Strip] SUMAtriptan [Imitrex] 25 mg ORAL DAILY PRN 04/11/17 04/20/17 Diphenoxylate HCl/Atropine 1 each PO Q6H PRN #12 tablet 04/20/17 [Diphenoxylate-Atrop 2.5-0.025] Promethazine [Phenergan] 25 mg PO Q6H PRN #15 tab 04/20/17 - Allergies Allergies/Adverse Reactions: Allergies Allergy/AdvReac Type Severity Reaction Status Date / Time Latex, Natural Rubber Allergy Mild Rash Verified 04/20/17 03:50 acetaminophen [From Vicodin] Allergy Hives Verified 04/20/17 03:50 hydrocodone bitartrate * Allergy Hives Verified 04/20/17 03:50 [From Vicodin] Penicillins Allergy Rash Verified 04/20/17 03:50 tramadol Allergy Rash Verified 04/20/17 03:50 adhesive AdvReac Intermediate chemical Verified 04/20/17 03:50 logan haloperidol [From Haldol] AdvReac Unknown Hallucinati Verified 04/20/17 03:50 ons iodine AdvReac Unknown Rash Verified 04/20/17 03:50 latex AdvReac Unknown Respiratory Verified 04/20/17 03:50 lamotrigine [From Lamictal] AdvReac Rash Verified 04/20/17 03:50 varenicline tartrate * AdvReac Hallucinati Verified 04/20/17 03:50 [From Chantix] ons steriods AdvReac Intermediate Unknown Uncoded 04/11/17 15:45 - Social History Does the pt smoke?: Yes Smoking Status: Current every day smoker Does the pt drink ETOH?: Yes Does the pt have substance abuse?: Yes - Immunizations Immunizations are current?: Yes - POLST Patient has POLST: No POLST Status: Full Code PD ED PE NORMAL - Vitals Vital signs reviewed: Yes - General General: Alert and oriented X 3, No acute distress - HEENT HEENT: PERRL, EOMI - Neck Neck: Supple, no meningeal sign, No bony TTP - Neuro Neuro: Alert and oriented X 3 Eye Opening: Spontaneous Motor: Obeys Commands Verbal: Oriented GCS Score: 15 - Psych Psych: Normal mood, Normal affect Results - Vitals Vitals: Vital Signs - 24 hr 04/30/17 04/30/17 04/30/17 19:30 20:07 21:05 Temperature 36.6 C Heart Rate 101 H 79 79 Respiratory 18 15 15 Rate Blood Pressure 150/101 H 144/96 H 133/89 H O2 Saturation 97 94 94 Oxygen O2 Source Room air PD MEDICAL DECISION MAKING - ED course Complexity details: reviewed old records (39th ED visit so far this calendar year) ED course: The headache is gradual in onset and similar to prior headaches. As such I doubt subarachnoid hemorrhage. There are no infectious symptoms such as fever or stiff neck to make me suspect meningitis. No carbon monoxide exposure by history. She was administered, Compazine, Toradol, Benadryl and Imitrex. On recheck not much improvement but after the administration of IV Haldol she felt much better. Departure - Departure Disposition: 01 Home, Self Care Clinical Impression: Headache Condition: Good Record reviewed to determine appropriate education?: Yes Instructions: ED Cephalgia Unspecified Comments: Call your doctor to arrange a follow-up appointment, make the next available appointment. In the interim, return anytime if worse or if new symptoms develop. Your blood pressure was elevated today on check into the emergency department. This does not mean that you have hypertension, it is a common phenomenon to come to the emergency department and have elevated blood pressure. I recommend that you see your primary care physician within the week to have it rechecked when you are feeling better.
[2017-04-30] MEDS ORDERED: PROCHLORPERAZINE 10 MG/2 ML VIAL ONE (19:48)
[2017-04-30] MEDS ORDERED: SUMAtriptan 6 MG/0.5 ML VIAL SUBQ ONE (19:48)
[2017-04-30] MEDS ORDERED: diphenhydrAMINE INJ 50 MG/ML VIAL ONE (19:48)
[2017-04-30] MEDS ORDERED: KETOROLAC 30 MG/ML VIAL ONE (19:49)
[2017-04-30] MEDS ORDERED: HALOPERIDOL 5 MG/ML VIAL IVP ONE (20:58)
[2017-04-30 21:06] VITALS: BP 133/89
[2017-04-30] MEDS ORDERED: HALOPERIDOL 5 MG/ML VIAL ONE (21:06)
== END 2017-04-30 20:22 | disposition home or self-care (01) ==
LOC: EDUNIT# → ED 19:28
DX: R51 Headache (principal); I10 Essential (primary) hypertension; E78.00 Pure hypercholesterolemia, unspecified; J45.909 Unspecified asthma, uncomplicated; G47.30 Sleep apnea, unspecified; E11.42 Type 2 diabetes mellitus with diabetic polyneuropathy; Z79.4 Long term (current) use of insulin; K21.9 Gastro-esophageal reflux disease without esophagitis; Z87.11 Personal history of peptic ulcer disease; M19.90 Unspecified osteoarthritis, unspecified site; F17.200 Nicotine dependence, unspecified, uncomplicated
CPT/HCPCS: 96372; 96374; 96375; 99284

== ENCOUNTER 2017-05-05 16:25 | Emergency (ER) | payer MEDICARE, MEDICAID ==
[2017-05-05 16:30] VITALS: BP 132/80
== END 2017-05-05 19:00 | disposition left against medical advice (07) ==
LOC: ED 16:25
DX: Z53.21 Procedure and treatment not carried out due to patient leaving prior to being seen by health care provider (principal)
CPT/HCPCS: 99281

== ENCOUNTER 2017-05-13 18:50 | Emergency (ER) | payer MEDICARE, MEDICAID ==
[2017-05-13] MEDS ORDERED: cefTRIAXone 1 GM VIAL IM STA (19:37)
[2017-05-13] MEDS ORDERED: KETOROLAC 60 MG/2 ML VIAL IM STA (19:37)
[2017-05-13] MEDS ORDERED: SUMAtriptan 6 MG/0.5 ML VIAL SUBQ STA (19:38)
--- NOTE | 2017-05-13 19:42 | ED Physician Documentation ---
History of Present Illness - Stated complaint Stated Complaint: FEMALE ISSUE - Chief complaint Chief Complaint: General - History obtained from History obtained from: Patient - History of Present Illness Timing: Other (37-year-old woman who is very well-known to me, she has a history of type 2 diabetes. She was admitted in October of this year for mastitis not related to breast-feeding. Starting today the superolateral part of her right breast started hurting and turning red again with some nipple discharge. No fevers. 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 : Incontinence HEENT: None Psych: Depression, Anxiety, Bipolar disorder, Schizophrenia, ADD/ADHD, Post traumatic stress disorder, Obsessive compulsive disorder Musculoskeletal: Osteoarthritis, Osteoporosis Derm: Other drug resistant infections - Past Surgical History Past Surgical History: Yes General: 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: Tubal ligation, Other HEENT: Tonsil/Adenoidectomy - Present Medications Home Medications: Ambulatory Orders Medication Instructions Recorded Confirmed Insulin Aspart (Vial) [NovoLOG 1 - 10 unit SUBQ .SLIDINGSCALE 10/31/16 05/13/17 (VIAL FOR ED USE)] Insulin Regular, Human [Humulin R 0.08 ml SUBQ BID 10/31/16 05/13/17 U-500] Zonisamide [Zonegran] 200 mg PO BID 12/02/16 05/13/17 Esomeprazole Magnesium 40 mg PO QDAC 02/15/17 05/13/17 [Esomeprazole Magnesium] Metformin HCl 1,000 mg PO BIDWM 02/15/17 05/13/17 Mirtazapine [Mirtazapine] 7.5 mg PO QPM 02/15/17 05/13/17 Quetiapine Fumarate [Seroquel] 400 mg PO QPM 02/15/17 05/13/17 Venlafaxine HCl [Venlafaxine HCl 150 mg PO DAILY 02/15/17 05/13/17 ER] acetaZOLAMIDE [Acetazolamide] 500 mg PO BID 02/15/17 05/13/17 cloZAPine [Clozapine] 100 mg PO TID 02/15/17 05/13/17 Prazosin HCl [Prazosin HCl] 10 mg PO QPM 02/17/17 05/13/17 Trazodone HCl 400 mg PO QPM PRN 02/17/17 05/13/17 Blood Sugar Diagnostic [Glucose 1 each MC QID #120 strip 03/28/17 05/13/17 Test Strip] SUMAtriptan [Imitrex] 25 mg ORAL DAILY PRN 04/11/17 05/13/17 Diphenoxylate HCl/Atropine 1 each PO Q6H PRN #12 tablet 04/20/17 05/13/17 [Diphenoxylate-Atrop 2.5-0.025] Promethazine [Phenergan] 25 mg PO Q6H PRN #15 tab 04/20/17 05/13/17 Cephalexin [Keflex] 500 mg PO QID #40 capsule 05/13/17 - Allergies Allergies/Adverse Reactions: Allergies Allergy/AdvReac Type Severity Reaction Status Date / Time Latex, Natural Rubber Allergy Mild Rash Verified 05/13/17 19:28 acetaminophen [From Vicodin] Allergy Hives Verified 05/13/17 19:28 hydrocodone bitartrate * Allergy Hives Verified 05/13/17 19:28 [From Vicodin] Penicillins Allergy Rash Verified 05/13/17 19:28 tramadol Allergy Rash Verified 05/13/17 19:28 adhesive AdvReac Intermediate chemical Verified 05/13/17 19:28 logan haloperidol [From Haldol] AdvReac Unknown Hallucinati Verified 05/13/17 19:28 ons iodine AdvReac Unknown Rash Verified 05/13/17 19:28 latex AdvReac Unknown Respiratory Verified 05/13/17 19:28 lamotrigine [From Lamictal] AdvReac Rash Verified 05/13/17 19:28 varenicline tartrate * AdvReac Hallucinati Verified 04/20/17 03:50 [From Chantix] ons steriods AdvReac Intermediate Unknown Uncoded 04/11/17 15:45 - Social History Does the pt smoke?: Yes Smoking Status: Current every day smoker Does the pt drink ETOH?: Yes Does the pt have substance abuse?: Yes - Immunizations Immunizations are current?: Yes - POLST Patient has POLST: No POLST Status: Full Code PD ED PE NORMAL - Vitals Vital signs reviewed: Yes - General General: Alert and oriented X 3, No acute distress - Derm Derm: Other (Done with Meme Rowell RN present in chaperoning. She has a mild case of breast cellulitis superolateral to the right areola.) - Neuro Neuro: Alert and oriented X 3, Normal speech Results - Vitals Vitals: Vital Signs - 24 hr 05/13/17 18:55 Temperature 36.5 C Heart Rate 87 Respiratory 17 Rate Blood Pressure 135/86 H O2 Saturation 96 Oxygen O2 Source Room air PD MEDICAL DECISION MAKING - ED course ED course: 37-year-old woman with Diabetes and chronic pain and migraines presents with a mild case of right breast mastitis, she is allergic to penicillins but has done okay with cephalosporins in the past and she is administered Rocephin IM as well as Toradol and Imitrex for the headache. Departure - Departure Disposition: 01 Home, Self Care Clinical Impression: Mastitis in female Condition: Good Record reviewed to determine appropriate education?: Yes Instructions: ED Breast Infec Prescriptions: Cephalexin [Keflex] 500 mg PO QID #40 capsule Comments: Talk with Dr. Mulligan about further workup on your current breast infections. Return if worse, or if you run a fever. Your blood pressure was elevated today on check into the emergency department. This does not mean that you have hypertension, it is a common phenomenon to come to the emergency department and have elevated blood pressure. I recommend that you see your primary care physician within the week to have it rechecked when you are feeling better.
[2017-05-13] MEDS ORDERED: LIDOCAINE 1% 2 ML VIAL ONE (19:49)
[2017-05-13 20:13] VITALS: BP 121/89
== END 2017-05-13 20:17 | disposition home or self-care (01) ==
LOC: ED 18:50
DX: N61.0 Mastitis without abscess (principal); G89.29 Other chronic pain; E11.42 Type 2 diabetes mellitus with diabetic polyneuropathy; Z79.4 Long term (current) use of insulin; I10 Essential (primary) hypertension; E78.00 Pure hypercholesterolemia, unspecified; J45.909 Unspecified asthma, uncomplicated; K21.9 Gastro-esophageal reflux disease without esophagitis; Z87.11 Personal history of peptic ulcer disease; M19.90 Unspecified osteoarthritis, unspecified site; F17.200 Nicotine dependence, unspecified, uncomplicated
CPT/HCPCS: 96372; 99283

== ENCOUNTER 2017-05-14 23:06 | Outpatient (CLI) | payer MEDICARE, MEDICAID | END 2017-05-14 23:59 | disposition critical access hospital (66) | LOC: EMS 23:06 | PROVIDERS: ATTEND Surgery | DX: N64.4 Mastodynia (principal) | CPT/HCPCS: A0425; A0429 ==

== ENCOUNTER 2017-05-14 23:11 | Emergency (ER) | payer MEDICARE, MEDICAID ==
[2017-05-14] MEDS ORDERED: ONDANSETRON ODT 4 MG TABLET TL STA (23:58)
--- NOTE | 2017-05-15 00:03 | ED Physician Documentation ---
History of Present Illness - Stated complaint Stated Complaint: BREAST PN - Chief complaint Chief Complaint: General - History obtained from History obtained from: Patient, EMS - History of Present Illness Timing: How many days ago (2) - Additonal information Additional information: c/o right breast redness, swelling, pain localized to an area superior (cranial ) to the areola. she was T+R from this ED yesterday for same, given IM rocephin and rx keflex, returns due to worsening symptoms; she is mostly concerned with the rapidity of worsening rather than the severity of symptoms. she had mastitis in October of this year that failed outpatient treatment but responded well to inpatient IV antibiotics. Review of Systems Constitutional: reports: Chills, Sweats. 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 HEENT: None Psych: Depression, Anxiety, Bipolar disorder, Schizophrenia, ADD/ADHD, Post traumatic stress disorder, Obsessive compulsive disorder Musculoskeletal: Osteoarthritis, Osteoporosis Derm: Other drug resistant infections - Past Surgical History Past Surgical History: Yes General: 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: Tubal ligation, Other HEENT: Tonsil/Adenoidectomy - Present Medications Home Medications: Ambulatory Orders Medication Instructions Recorded Confirmed Insulin Aspart (Vial) [NovoLOG 1 - 10 unit SUBQ .SLIDINGSCALE 10/31/16 05/14/17 (VIAL FOR ED USE)] Insulin Regular, Human [Humulin R 0.08 ml SUBQ BID 10/31/16 05/14/17 U-500] Zonisamide [Zonegran] 200 mg PO BID 12/02/16 05/14/17 Esomeprazole Magnesium 40 mg PO QDAC 02/15/17 05/14/17 [Esomeprazole Magnesium] Metformin HCl 1,000 mg PO BIDWM 02/15/17 05/14/17 Mirtazapine [Mirtazapine] 7.5 mg PO QPM 02/15/17 05/14/17 Quetiapine Fumarate [Seroquel] 400 mg PO QPM 02/15/17 05/14/17 Venlafaxine HCl [Venlafaxine HCl 150 mg PO DAILY 02/15/17 05/14/17 ER] acetaZOLAMIDE [Acetazolamide] 500 mg PO BID 02/15/17 05/14/17 cloZAPine [Clozapine] 100 mg PO TID 02/15/17 05/14/17 Prazosin HCl [Prazosin HCl] 10 mg PO QPM 02/17/17 05/14/17 Trazodone HCl 400 mg PO QPM PRN 02/17/17 05/14/17 Blood Sugar Diagnostic [Glucose 1 each MC QID #120 strip 03/28/17 05/14/17 Test Strip] SUMAtriptan [Imitrex] 25 mg ORAL DAILY PRN 04/11/17 05/14/17 Diphenoxylate HCl/Atropine 1 each PO Q6H PRN #12 tablet 04/20/17 05/14/17 [Diphenoxylate-Atrop 2.5-0.025] Promethazine [Phenergan] 25 mg PO Q6H PRN #15 tab 04/20/17 05/14/17 Cephalexin [Keflex] 500 mg PO QID #40 capsule 05/13/17 05/14/17 Clindamycin HCl [Clindamycin 300MG 300 mg PO QID 10 Days #40 capsule 05/15/17 CAP] - Allergies Allergies/Adverse Reactions: Allergies Allergy/AdvReac Type Severity Reaction Status Date / Time Latex, Natural Rubber Allergy Mild Rash Verified 05/14/17 23:18 acetaminophen [From Vicodin] Allergy Hives Verified 05/14/17 23:18 hydrocodone bitartrate * Allergy Hives Verified 05/14/17 23:18 [From Vicodin] Penicillins Allergy Rash Verified 05/14/17 23:18 tramadol Allergy Rash Verified 05/14/17 23:18 adhesive AdvReac Intermediate chemical Verified 05/14/17 23:18 logan haloperidol [From Haldol] AdvReac Unknown Hallucinati Verified 05/14/17 23:18 ons iodine AdvReac Unknown Rash Verified 05/14/17 23:18 latex AdvReac Unknown Respiratory Verified 05/14/17 23:18 lamotrigine [From Lamictal] AdvReac Rash Verified 05/14/17 23:18 varenicline tartrate * AdvReac Hallucinati Verified 05/14/17 23:18 [From Chantix] ons steriods AdvReac Intermediate Unknown Uncoded 05/14/17 23:18 - Social History Does the pt smoke?: Yes Smoking Status: Current every day smoker Does the pt drink ETOH?: Yes Does the pt have substance abuse?: Yes - Immunizations Immunizations are current?: Yes - POLST Patient has POLST: No POLST Status: Full Code PD ED PE NORMAL - Vitals Vital signs reviewed: Yes - General General: Alert and oriented X 3, No acute distress, Well developed/nourished - Female Female : Other (RN Brandi Hines present for breast exam. there is mild erythema, tenderness, and mild induration superior and adjacent to the right areola. no fluctuance or palpable abscess, no discharge) Results - Vitals Vitals: Vital Signs - 24 hr 05/14/17 05/15/17 23:15 01:22 Temperature 37.5 C 36.1 C L Heart Rate 89 91 Respiratory 18 16 Rate Blood Pressure 131/80 H 139/76 H O2 Saturation 95 96 Oxygen O2 Source Room air PD MEDICAL DECISION MAKING - ED course Complexity details: reviewed old records, considered differential, d/w patient ED course: despite worsening, the exam does not suggest abscess nor advanced cellulitis requiring or indicating inpatient treatment. she is given another dose of IM rocephin, and PO clindamycin is added to the keflex she is taking (PO dose in ED. 450mg given in ED, based on dosing provided when she was discharged from this hospital in October, but rx for 300 mg provided for dosing convenience). encouraged to return if worse Departure - Departure Disposition: 01 Home, Self Care Clinical Impression: Mastitis Condition: Good Instructions: ED Breast Infec Follow-Up: Lorna Mulligan MD [Primary Care Provider] - Prescriptions: Clindamycin HCl [Clindamycin 300MG CAP] 300 mg PO QID 10 Days #40 capsule Discharge Date/Time: 05/15/17 01:25
[2017-05-15] MEDS ORDERED: cefTRIAXone 1 GM VIAL IM STA (00:41)
[2017-05-15] MEDS ORDERED: KETOROLAC 60 MG/2 ML VIAL IM STA (00:41)
[2017-05-15] MEDS ORDERED: CLINDAMYCIN 150 MG CAPSULE PO STA (00:41)
[2017-05-15] MEDS ORDERED: LIDOCAINE 1% 2 ML VIAL ONE (00:51)
[2017-05-15 01:25] VITALS: BP 139/76
== END 2017-05-15 01:25 | disposition home or self-care (01) ==
LOC: EDUNIT# → ED 23:11
DX: N61.0 Mastitis without abscess (principal); I10 Essential (primary) hypertension; E78.00 Pure hypercholesterolemia, unspecified; J45.909 Unspecified asthma, uncomplicated; E11.42 Type 2 diabetes mellitus with diabetic polyneuropathy; Z79.4 Long term (current) use of insulin; K21.9 Gastro-esophageal reflux disease without esophagitis; Z87.11 Personal history of peptic ulcer disease; M81.0 Age-related osteoporosis without current pathological fracture; M19.90 Unspecified osteoarthritis, unspecified site; F17.200 Nicotine dependence, unspecified, uncomplicated
CPT/HCPCS: 96372; 99283; A9270; Q0162

== ENCOUNTER 2017-05-21 09:11 | Outpatient (CLI) | payer MEDICARE, MEDICAID ==
[2017-05-21 09:43] LABS: BASOPHILS # (AUTO) 0.1 10^3/uL (0.0-0.1); BASOPHILS % (AUTO) 0.7 %; HCT - HEMATOCRIT 44.9 % (37.0-47.0); HGB - HEMOGLOBIN 15.3 g/dL (12.0-16.0); LYMPHOCYTES # (AUTO) 2.1 10^3/uL (1.5-3.5); LYMPHOCYTES % (AUTO) 25.1 %; MEAN CORPUSCULAR HEMOGLOBIN 30.4 pg (27.0-31.0); MEAN CORPUSCULAR VOLUME 89.3 fL (81.0-99.0); MEAN PLATELET VOLUME 7.3 fL (7.9-10.8); MONOCYTES # (AUTO) 0.5 10^3/uL (0.0-1.0); MONOCYTES % (AUTO) 6.1 %; NEUTROPHILS # (AUTO) 5.7 10^3/uL (1.5-6.6); NEUTROPHILS % (AUTO) 68.1 %; NUCLEATED RED BLOOD CELLS AUTO 0.1 /100WBC; RED BLOOD COUNT 5.03 10^6/uL (4.20-5.40); RED CELL DISTRIBUTION WIDTH 14.7 % (12.0-15.0); UNCORRECTED WHITE BLOOD COUNT 8.4 x10^3/uL; WHITE BLOOD COUNT 8.4 x10^3/uL (4.8-10.8)
== END 2017-05-21 09:12 | disposition home or self-care (01) ==
LOC: LAB 09:11
PROVIDERS: ATTEND Psychiatry & Neurology Psychiatry
DX: Z79.899 Other long term (current) drug therapy (principal)
CPT/HCPCS: 36415; 85025

== ENCOUNTER 2017-05-23 10:40 | Emergency (ER) | payer MEDICARE, MEDICAID ==
[2017-05-23 10:50] VITALS: BP 141/95
[2017-05-23] MEDS ORDERED: IBUPROFEN 400 MG TABLET PO STA (11:49)
[2017-05-23] MEDS ORDERED: ACETAMINOPHEN 325 MG TABLET PO STA (11:53)
--- NOTE | 2017-05-23 13:15 | XRAY Report ---
EXAMS: 1. Right Foot Radiography 2. Left Foot Radiography EXAM DATE: 05/23/2017 12:49 PM. CLINICAL HISTORY: Fall hurts. COMPARISON: None. TECHNIQUE: 3 views each foot. FINDINGS: Right: Bones: Normal. No fractures or bone lesions. Joints: There is a hallux valgus measuring approximately 30 degrees. Soft Tissues: Normal. No soft tissue swelling. Left: Bones: Normal. No fractures or bone lesions. Joints: There is a hallux valgus measuring approximately 20 degrees. Soft Tissues: Normal. No soft tissue swelling. IMPRESSION: Negative bilateral feet. [facility] Referring Provider Line: [phone] SITE ID: [id number]
--- NOTE | 2017-05-23 13:15 | XRAY Report ---
EXAMS: 1. Right Foot Radiography 2. Left Foot Radiography EXAM DATE: 05/23/2017 12:49 PM. CLINICAL HISTORY: Fall hurts. COMPARISON: None. TECHNIQUE: 3 views each foot. FINDINGS: Right: Bones: Normal. No fractures or bone lesions. Joints: There is a hallux valgus measuring approximately 30 degrees. Soft Tissues: Normal. No soft tissue swelling. Left: Bones: Normal. No fractures or bone lesions. Joints: There is a hallux valgus measuring approximately 20 degrees. Soft Tissues: Normal. No soft tissue swelling. IMPRESSION: Negative bilateral feet. [facility] Referring Provider Line: [phone] SITE ID: [id number]
--- NOTE | 2017-05-23 13:15 | XRAY Preliminary Report ---
Exam: XR FOOT 3 VIEW LT IMPRESSION: Negative bilateral feet. [facility] SITE ID: [id number]
--- NOTE | 2017-05-23 13:16 | XRAY Report ---
EXAM: LEFT ANKLE RADIOGRAPHY EXAM DATE: 05/23/2017 12:50 PM. CLINICAL HISTORY: Fall hurts. COMPARISON: 08/04/2013. TECHNIQUE: 3 views. FINDINGS: Bones: Normal. No fractures or bone lesions. Joints: Normal. No effusion. No subluxations. The ankle mortise is normally aligned. Soft Tissues: Normal. No soft tissue swelling. IMPRESSION: Negative left ankle. [facility] Referring Provider Line: [phone] SITE ID: [id number]
--- NOTE | 2017-05-23 13:17 | ED Physician Documentation ---
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 : Incontinence HEENT: None Psych: Depression, Anxiety, Bipolar disorder, Schizophrenia, ADD/ADHD, Post traumatic stress disorder, Obsessive compulsive disorder Musculoskeletal: Osteoarthritis, Osteoporosis Derm: Other drug resistant infections - Past Surgical History Past Surgical History: Yes General: Cholecystectomy /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 STRIPPER CUTTER: Tubal ligation, Other HEENT: Tonsil/Adenoidectomy - Present Medications Home Medications: Ambulatory Orders Medication Instructions Recorded Confirmed Insulin Aspart (Vial) [NovoLOG 1 - 10 unit SUBQ .SLIDINGSCALE 10/31/16 05/14/17 (VIAL FOR ED USE)] Insulin Regular, Human [Humulin R 0.08 ml SUBQ BID 10/31/16 05/14/17 U-500] Zonisamide [Zonegran] 200 mg PO BID 12/02/16 05/14/17 Esomeprazole Magnesium 40 mg PO QDAC 02/15/17 05/14/17 [Esomeprazole Magnesium] Metformin HCl 1,000 mg PO BIDWM 02/15/17 05/14/17 Mirtazapine [Mirtazapine] 7.5 mg PO QPM 02/15/17 05/14/17 Quetiapine Fumarate [Seroquel] 400 mg PO QPM 02/15/17 05/14/17 Venlafaxine HCl [Venlafaxine HCl 150 mg PO DAILY 02/15/17 05/14/17 ER] acetaZOLAMIDE [Acetazolamide] 500 mg PO BID 02/15/17 05/14/17 cloZAPine [Clozapine] 100 mg PO TID 02/15/17 05/14/17 Prazosin HCl [Prazosin HCl] 10 mg PO QPM 02/17/17 05/14/17 Trazodone HCl 400 mg PO QPM PRN 02/17/17 05/14/17 Blood Sugar Diagnostic [Glucose 1 each MC QID #120 strip 03/28/17 05/14/17 Test Strip] SUMAtriptan [Imitrex] 25 mg ORAL DAILY PRN 04/11/17 05/14/17 Diphenoxylate HCl/Atropine 1 each PO Q6H PRN #12 tablet 04/20/17 05/14/17 [Diphenoxylate-Atrop 2.5-0.025] Promethazine [Phenergan] 25 mg PO Q6H PRN #15 tab 04/20/17 05/14/17 Cephalexin [Keflex] 500 mg PO QID #40 capsule 05/13/17 05/14/17 Clindamycin HCl [Clindamycin 300MG 300 mg PO QID 10 Days #40 capsule 05/15/17 CAP] - Allergies Allergies/Adverse Reactions: Allergies Allergy/AdvReac Type Severity Reaction Status Date / Time Latex, Natural Rubber Allergy Mild Rash Verified 05/14/17 23:18 acetaminophen [From Vicodin] Allergy Hives Verified 05/14/17 23:18 hydrocodone bitartrate * Allergy Hives Verified 05/14/17 23:18 [From Vicodin] Penicillins Allergy Rash Verified 05/14/17 23:18 tramadol Allergy Rash Verified 05/14/17 23:18 adhesive AdvReac Intermediate chemical Verified 05/14/17 23:18 logan haloperidol [From Haldol] AdvReac Unknown Hallucinati Verified 05/14/17 23:18 ons iodine AdvReac Unknown Rash Verified 05/14/17 23:18 latex AdvReac Unknown Respiratory Verified 05/14/17 23:18 lamotrigine [From Lamictal] AdvReac Rash Verified 05/14/17 23:18 varenicline tartrate * AdvReac Hallucinati Verified 05/14/17 23:18 [From Chantix] ons steriods AdvReac Intermediate Unknown Uncoded 05/14/17 23:18 - Social History Does the pt smoke?: Yes Smoking Status: Current every day smoker Does the pt drink ETOH?: Yes Does the pt have substance abuse?: Yes - Immunizations Immunizations are current?: Yes - POLST Patient has POLST: No POLST Status: Full Code PD ED PE NORMAL - Vitals Vital signs reviewed: Yes - HEENT HEENT: Atraumatic, PERRL - Neck Neck: No bony TTP - Cardiac Cardiac: RRR - Respiratory Respiratory: No respiratory distress, Clear bilaterally - Derm Derm: Normal color - Extremities Extremities: Other (L knee no edema, TT ant lat jt line, no LC: MCL laxity, mild ACL laxity but same as R knee, ext mech intact, MSV intact. L ankle + edema medial and lateral, diffuse TTP, neg drawer, MSV intact. L foot TTP prox top of foot not 5th MT, no bruising sig swelling or deformity, MSV intact. R foot mild swelling, mild TTP lat and prox ant, no laxity, MSV intact) Results - Vitals Vitals: Vital Signs - 24 hr 05/23/17 10:45 Temperature 37.1 C Heart Rate 104 H Respiratory 18 Rate Blood Pressure 141/95 H O2 Saturation 97 Oxygen O2 Source Room air - Rads (name of study) L knee L ankle oleg feet Radiology: See rad report (no fx) Departure - Departure Disposition: 01 Home, Self Care Clinical Impression: Fall Qualifiers: Encounter type: initial encounter Qualified Code(s): W19.XXXA - Unspecified fall, initial encounter Ankle sprain Qualifiers: Encounter type: initial encounter Involved ligament of ankle: unspecified ligament Laterality: left Qualified Code(s): S93.402A - Sprain of unspecified ligament of left ankle, initial encounter Knee sprain Qualifiers: Encounter type: initial encounter Involved ligament of knee: unspecified ligament Laterality: left Qualified Code(s): S83.92XA - Sprain of unspecified site of left knee, initial encounter Foot sprain Qualifiers: Encounter type: initial encounter Laterality: unspecified laterality Qualified Code(s): S93.609A - Unspecified sprain of unspecified foot, initial encounter Condition: Good Instructions: ED Sprain Knee, ED Sprain Ankle, ED Sprain Foot Comments: The xrays show no fractures Wear the boot as needed to walk but take it off at night or when resting Tylenol and ice for the pain. If pain last more than 2 weeks please see you PMD for a recheck
--- NOTE | 2017-05-23 13:17 | XRAY Report ---
EXAM: LEFT KNEE RADIOGRAPHY EXAM DATE: 05/23/2017 12:53 PM. CLINICAL HISTORY: Injury. COMPARISON: 11/28/2013. TECHNIQUE: 3 views. FINDINGS: Bones: Normal. No fractures or bone lesions. Joints: There are tiny traction osteophytes. No joint effusion. Soft Tissues: Normal. No soft tissue swelling. IMPRESSION: No acute abnormality in the left knee. [facility] Referring Provider Line: [phone] SITE ID: [id number]
== END 2017-05-23 13:59 | disposition home or self-care (01) ==
LOC: ED 10:40
DX: S93.402A Sprain of unspecified ligament of left ankle, initial encounter (principal); S83.92XA Sprain of unspecified site of left knee, initial encounter; S93.602A Unspecified sprain of left foot, initial encounter; W18.30XA Fall on same level, unspecified, initial encounter; I10 Essential (primary) hypertension; E78.00 Pure hypercholesterolemia, unspecified; E10.42 Type 1 diabetes mellitus with diabetic polyneuropathy; Z79.4 Long term (current) use of insulin; F17.200 Nicotine dependence, unspecified, uncomplicated
CPT/HCPCS: 73562; 73610; 73630; 99283; A9270

== ENCOUNTER 2017-05-24 20:45 | Emergency (ER) | payer MEDICARE, MEDICAID ==
[2017-05-24 20:51] VITALS: BP 146/106
[2017-05-24] MEDS ORDERED: oxyCOD/ACETAMIN 5 MG/325 MG TABLET PO STA (21:41)
--- NOTE | 2017-05-24 22:06 | ED Physician Documentation ---
PD HPI LOWER EXT INJURY - Stated complaint Stated Complaint: BILTAL ANKLE PX - Chief complaint Chief Complaint: Ext Problem - History obtained from History obtained from: Patient - History of Present Illness PD HPI LOW EXT INJURY LOCATION: Left, Knee, Ankle, Foot Type of injury: Fall Where injury occurred: Home Timing - onset: Yesterday Timing - details: Abrupt onset Improved by: Rest, Immobilization Worsened by: Moving, Palpating Associated symptoms: Swelling, Discolored Similar symptoms before: Work up / diagnostics, Treatment Recently seen: Emergency Dept - Additional information Additional information: Patient is a 37 year old female who is presenting to the emergency department for ankle and knee pain. patient states that she fell yesterday twisting her ankle and hitting her knee. patient had x-rays done which were all negative. Patient states that the pain persisted today and she is unable to walk on it and get to the bathroom. Patient states that the pain is unbearable and she did not have crutches at home. Patient denies any new trauma today. Review of Systems Constitutional: denies: Fever, Chills Eyes: reports: Reviewed and negative Ears: reports: Reviewed and negative Nose: reports: Reviewed and negative Throat: reports: Reviewed and negative Cardiac: reports: Reviewed and negative Respiratory: reports: Reviewed and negative GI: reports: Reviewed and negative : reports: Reviewed and negative Skin: reports: Other (ecchymosis) Musculoskeletal: reports: Extremity pain, Joint pain, Extremity swelling, Joint swelling Neurologic: denies: Generalized weakness, Focal weakness Immunocompromised: denies: Immunocompromised PD PAST MEDICAL HISTORY - Past Medical History Past Medical History: Yes Cardiovascular: Hypertension, High cholesterol, Other Respiratory: Asthma, Sleep apnea Neuro: Headache/migraine, Peripheral neuropathy, Seizure disorder Endocrine/Autoimmune: Type 2 diabetes GI: GERD, Ulcers, Chronic diarrhea, 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 : Incontinence HEENT: None Psych: Depression, Anxiety, Bipolar disorder, Schizophrenia, ADD/ADHD, Post traumatic stress disorder, Obsessive compulsive disorder Musculoskeletal: Osteoarthritis, Osteoporosis Derm: Other drug resistant infections - Past Surgical History Past Surgical History: Yes General: Cholecystectomy /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: Tubal ligation, Other HEENT: Tonsil/Adenoidectomy - Present Medications Home Medications: Ambulatory Orders Medication Instructions Recorded Confirmed Insulin Aspart (Vial) [NovoLOG 1 - 10 unit SUBQ .SLIDINGSCALE 10/31/16 05/24/17 (VIAL FOR ED USE)] Insulin Regular, Human [Humulin R 0.08 ml SUBQ BID 10/31/16 05/24/17 U-500] Zonisamide [Zonegran] 200 mg PO BID 12/02/16 05/24/17 Esomeprazole Magnesium 40 mg PO QDAC 02/15/17 05/24/17 [Esomeprazole Magnesium] Metformin HCl 1,000 mg PO BIDWM 02/15/17 05/24/17 Mirtazapine [Mirtazapine] 7.5 mg PO QPM 02/15/17 05/24/17 Quetiapine Fumarate [Seroquel] 400 mg PO QPM 02/15/17 05/24/17 Venlafaxine HCl [Venlafaxine HCl 150 mg PO DAILY 02/15/17 05/24/17 ER] acetaZOLAMIDE [Acetazolamide] 500 mg PO BID 02/15/17 05/24/17 cloZAPine [Clozapine] 100 mg PO TID 02/15/17 05/24/17 Prazosin HCl [Prazosin HCl] 10 mg PO QPM 02/17/17 05/24/17 Trazodone HCl 400 mg PO QPM PRN 02/17/17 05/24/17 Blood Sugar Diagnostic [Glucose 1 each MC QID #120 strip 03/28/17 05/24/17 Test Strip] SUMAtriptan [Imitrex] 25 mg ORAL DAILY PRN 04/11/17 05/24/17 Diphenoxylate HCl/Atropine 1 each PO Q6H PRN #12 tablet 04/20/17 05/24/17 [Diphenoxylate-Atrop 2.5-0.025] Promethazine [Phenergan] 25 mg PO Q6H PRN #15 tab 04/20/17 05/24/17 Cephalexin [Keflex] 500 mg PO QID #40 capsule 05/13/17 05/24/17 Clindamycin HCl [Clindamycin 300MG 300 mg PO QID 10 Days #40 capsule 05/15/17 CAP] - Allergies Allergies/Adverse Reactions: Allergies Allergy/AdvReac Type Severity Reaction Status Date / Time Latex, Natural Rubber Allergy Mild Rash Verified 05/24/17 20:51 acetaminophen [From Vicodin] Allergy Hives Verified 05/24/17 20:51 hydrocodone bitartrate * Allergy Hives Verified 05/24/17 20:51 [From Vicodin] Penicillins Allergy Rash Verified 05/24/17 20:51 tramadol Allergy Rash Verified 05/24/17 20:51 adhesive AdvReac Intermediate chemical Verified 05/24/17 20:51 logan haloperidol [From Haldol] AdvReac Unknown Hallucinati Verified 05/24/17 20:51 ons iodine AdvReac Unknown Rash Verified 05/24/17 20:51 latex AdvReac Unknown Respiratory Verified 05/24/17 20:51 lamotrigine [From Lamictal] AdvReac Rash Verified 05/24/17 20:51 varenicline tartrate * AdvReac Hallucinati Verified 05/24/17 20:51 [From Chantix] ons steriods AdvReac Intermediate Unknown Uncoded 05/24/17 20:51 - Social History Does the pt smoke?: Yes Smoking Status: Current every day smoker Does the pt drink ETOH?: Yes Does the pt have substance abuse?: Yes - Immunizations Immunizations are current?: Yes - POLST Patient has POLST: No POLST Status: Full Code PD ED PE NORMAL - Vitals Vital signs reviewed: Yes - General General: Alert and oriented X 3, No acute distress - HEENT HEENT: Atraumatic, PERRL, Moist mucous membranes - Neck Neck: Supple, no meningeal sign, No bony TTP - Cardiac Cardiac: RRR, No murmur - Respiratory Respiratory: No respiratory distress - Abdomen Abdomen: Non distended - Neuro Neuro: Alert and oriented X 3, No motor deficit, No sensory deficit, Normal speech Eye Opening: Spontaneous Motor: Obeys Commands Verbal: Oriented GCS Score: 15 PD ED PE EXPANDED - Extremities Extremities: Left knee (tenderness and swelling of left knee), Left ankle ( tenderness, swelling and ecchymosis of left ankle) Results - Vitals Vitals: Vital Signs - 24 hr 05/24/17 20:47 Temperature 36.6 C Heart Rate 109 H Respiratory 18 Rate Blood Pressure 146/106 H O2 Saturation 97 Oxygen O2 Source Room air PD MEDICAL DECISION MAKING - ED course Complexity details: reviewed old records, reviewed results, re-evaluated patient , considered differential, d/w patient, d/w family ED course: Patient was seen and examined at bedside. Patient's films were reviewed from the previous day. Patient was treated with a percocet for pain and given crutches. Patient required no further work up at this time and was stable for discharge with outpatient follow up. Departure - Departure Disposition: 01 Home, Self Care Clinical Impression: Ankle sprain Instructions: ED Sprain Ankle W X Ray Follow-Up: Lorna Mulligan MD [Primary Care Provider] - Within 1 week Comments: Your films from yesterday were reviewed and showed no acute fracture or dislocation. You do have a significant sprain and you should ambulate with crutches. You should continue to ice your injuries at least 4 times a day. You should follow up with your doctor if your symptoms perist for more than the next 10-14 days.
== END 2017-05-24 22:16 | disposition home or self-care (01) ==
LOC: ED 20:45
DX: S93.402A Sprain of unspecified ligament of left ankle, initial encounter (principal); W19.XXXA Unspecified fall, initial encounter; X50.9XXA Other and unspecified overexertion or strenuous movements or postures, initial encounter; W22.09XA Striking against other stationary object, initial encounter; Y92.009 Unspecified place in unspecified non-institutional (private) residence as the place of occurrence of the external cause; I10 Essential (primary) hypertension; E78.00 Pure hypercholesterolemia, unspecified; E10.42 Type 1 diabetes mellitus with diabetic polyneuropathy; F17.200 Nicotine dependence, unspecified, uncomplicated; Z79.4 Long term (current) use of insulin
CPT/HCPCS: 99283; A9270

== ENCOUNTER 2017-05-26 11:02 | Outpatient (CLI) | payer MEDICARE, MEDICAID | END 2017-05-26 11:03 | disposition critical access hospital (66) | LOC: EMS 11:02 | PROVIDERS: ATTEND Surgery | DX: R06.00 Dyspnea, unspecified (principal); R46.4 Slowness and poor responsiveness | CPT/HCPCS: A0425; A0427 ==

== ENCOUNTER 2017-05-26 11:08 | Inpatient (IN) | payer MEDICARE, MEDICAID ==
[2017-05-26] MEDS ORDERED: SODIUM CHLORIDE 0.9% 1,000 ML IV ONE (11:33)
--- NOTE | 2017-05-26 11:37 | ED Physician Documentation ---
History of Present Illness - Stated complaint Stated Complaint: WEAKNESS - Chief complaint Chief Complaint: Resp - History obtained from History obtained from: EMS, Caregiver - History of Present Illness Timing: Prior to arrival, Today - Additonal information Additional information: 37-year-old female has a recent ankle sprain and is is in a walking boot got up this morning about 4 AM to go to the bathroom was noted to be diaphoretic at that time. She went back to bed was noted at 7 AM to be sleeping peacefully she got up at 9 AM to go to the bathroom again she collapsed in the [place] secondary to pain she was diaphoretic and has altered level of consciousness. She has had a cough and congestion and was brought to the hospital this morning not responding to EMS. 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 : Incontinence HEENT: None Psych: Depression, Anxiety, Bipolar disorder, Schizophrenia, ADD/ADHD, Post traumatic stress disorder, Obsessive compulsive disorder Musculoskeletal: Osteoarthritis, Osteoporosis Derm: Other drug resistant infections - Past Surgical History Past Surgical History: Yes General: 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, Other HEENT: Tonsil/Adenoidectomy - Present Medications Home Medications: Ambulatory Orders Medication Instructions Recorded Confirmed Insulin Aspart (Vial) [NovoLOG 1 - 10 unit SUBQ .SLIDINGSCALE 10/31/16 05/24/17 (VIAL FOR ED USE)] Insulin Regular, Human [Humulin R 0.08 ml SUBQ BID 10/31/16 05/24/17 U-500] Zonisamide [Zonegran] 200 mg PO BID 12/02/16 05/24/17 Esomeprazole Magnesium 40 mg PO QDAC 02/15/17 05/24/17 [Esomeprazole Magnesium] Metformin HCl 1,000 mg PO BIDWM 02/15/17 05/24/17 Mirtazapine [Mirtazapine] 7.5 mg PO QPM 02/15/17 05/24/17 Quetiapine Fumarate [Seroquel] 400 mg PO QPM 02/15/17 05/24/17 Venlafaxine HCl [Venlafaxine HCl 150 mg PO DAILY 02/15/17 05/24/17 ER] acetaZOLAMIDE [Acetazolamide] 500 mg PO BID 02/15/17 05/24/17 cloZAPine [Clozapine] 100 mg PO TID 02/15/17 05/24/17 Prazosin HCl [Prazosin HCl] 10 mg PO QPM 02/17/17 05/24/17 Trazodone HCl 400 mg PO QPM PRN 02/17/17 05/24/17 Blood Sugar Diagnostic [Glucose 1 each MC QID #120 strip 03/28/17 05/24/17 Test Strip] SUMAtriptan [Imitrex] 25 mg ORAL DAILY PRN 04/11/17 05/24/17 Diphenoxylate HCl/Atropine 1 each PO Q6H PRN #12 tablet 04/20/17 05/24/17 [Diphenoxylate-Atrop 2.5-0.025] Promethazine [Phenergan] 25 mg PO Q6H PRN #15 tab 04/20/17 05/24/17 Cephalexin [Keflex] 500 mg PO QID #40 capsule 05/13/17 05/24/17 Clindamycin HCl [Clindamycin 300MG 300 mg PO QID 10 Days #40 capsule 05/15/17 CAP] - Allergies Allergies/Adverse Reactions: Allergies Allergy/AdvReac Type Severity Reaction Status Date / Time Latex, Natural Rubber Allergy Mild Rash Verified 05/24/17 20:51 acetaminophen [From Vicodin] Allergy Hives Verified 05/24/17 20:51 hydrocodone bitartrate * Allergy Hives Verified 05/24/17 20:51 [From Vicodin] Penicillins Allergy Rash Verified 05/24/17 20:51 tramadol Allergy Rash Verified 05/24/17 20:51 adhesive AdvReac Intermediate chemical Verified 05/24/17 20:51 logan haloperidol [From Haldol] AdvReac Unknown Hallucinati Verified 05/24/17 20:51 ons iodine AdvReac Unknown Rash Verified 05/24/17 20:51 latex AdvReac Unknown Respiratory Verified 05/24/17 20:51 lamotrigine [From Lamictal] AdvReac Rash Verified 05/24/17 20:51 varenicline tartrate * AdvReac Hallucinati Verified 05/24/17 20:51 [From Chantix] ons steriods AdvReac Intermediate Unknown Uncoded 05/24/17 20:51 - Social History Does the pt smoke?: Yes Smoking Status: Current every day smoker Does the pt drink ETOH?: Yes Does the pt have substance abuse?: Yes - Immunizations Immunizations are current?: Yes - POLST Patient has POLST: No POLST Status: Full Code PD ED PE NORMAL - Vitals Vital signs reviewed: Yes (tachy and hypertension mild ) - General General: Well developed/nourished, Other (The patient does open her eyes to voice but is not verbally responsive. She is tachypneic at rest. ) - HEENT HEENT: Atraumatic, PERRL, EOMI, Other (both TM's are inflamed along the umbo) - Neck Neck: Supple, no meningeal sign, No bony TTP - Cardiac Cardiac: No murmur, Other (tachy to 110) - Respiratory Respiratory: Other (tachypneic at rest with diffuse rhonchi on exam but fair air movement. ) - Abdomen Abdomen: Soft, Non tender - Back Back: No CVA TTP, No spinal TTP - Derm Derm: Normal color, Warm and dry, No rash - Extremities Extremities: No deformity - Neuro Eye Opening: Spontaneous Motor: Obeys Commands Verbal: Confused GCS Score: 14 - Psych Psych: Normal affect Results - Vitals Vitals: Vital Signs - 24 hr 05/26/17 05/26/17 05/26/17 11:11 11:37 12:01 Temperature 36.2 C L Heart Rate 110 H 106 H 65 Respiratory 24 26 H 15 Rate Blood Pressure 131/75 H 118/101 H 113/70 O2 Saturation 92 96 95 Oxygen O2 Source Simple Mask Oxygen Flow Rate 8 - Labs Labs: Laboratory Tests 05/26/17 05/26/17 05/26/17 11:25 11:25 11:25 WBC 14.7 H RBC 5.31 Hgb 15.8 Hct 47.2 H MCV 88.8 MCH 29.8 MCHC 33.6 RDW 14.6 Plt Count 221 MPV 7.9 Neut # 11.9 H Lymph # 1.7 [place] # 1.0 Eos # 0.0 Baso # 0.1 Absolute Nucleated RBC 0.01 Nucleated RBC % 0.1 Manual Slide Review Indicated Platelet Estimate NORMAL (130-450,000) Platelet Morphology NORMAL APPEARANCE RBC Morph Micro Appear NORMAL APPEARANCE Sodium 138 Potassium 3.9 Chloride 109 Carbon Dioxide 20 L Anion Gap 9.0 BUN 13 Creatinine 0.7 Estimated GFR (MDRD) 95 Glucose 310 H Lactic Acid Calcium 8.8 Total Bilirubin 0.7 AST 28 ALT 19 Alkaline Phosphatase 65 Troponin I < 0.04 Total Protein 7.4 Albumin 4.0 Globulin 3.4 Albumin/Globulin Ratio 1.2 Lipase 15 L 05/26/17 11:25 WBC RBC Hgb Hct MCV MCH MCHC RDW Plt Count MPV Neut # Lymph # [place] # Eos # Baso # Absolute Nucleated RBC Nucleated RBC % Manual Slide Review Platelet Estimate Platelet Morphology RBC Morph Micro Appear Sodium Potassium Chloride Carbon Dioxide Anion Gap BUN Creatinine Estimated GFR (MDRD) Glucose Lactic Acid 1.7 Calcium Total Bilirubin AST ALT Alkaline Phosphatase Troponin I Total Protein Albumin Globulin Albumin/Globulin Ratio Lipase - Rads (name of study) 1 view chest Radiology: Prelim report reviewed (Impression: 1. Hypoinflation. 2. Mild increased vascular interstitial markings bilaterally be may be related to hypoinflation. Mild interstitial inflammatory changes cannot definitely be excluded. No focal consolidation.), EMP read indepedently, See rad report Procedures - IVC sono (time) 1130 Bedside IVC sono: IVC measures (cm) (0.79), IVC collapsed c insp (cm) (complete) , Low CVP, Dehydration PD MEDICAL DECISION MAKING - ED course Complexity details: reviewed old records, reviewed results, re-evaluated patient , considered differential, d/w patient ED course: 37-year-old schizophrenic female with a history of type 2 diabetes and seizure disorder has developed cough and congestion shortness of breath and altered level of consciousness. She has become sick over the past 2 days and on x-ray examination of her chest appears to have bilateral infiltrate and on exam sounds like she has pneumonia. She has elevated white blood cell count and altered level of consciousness. IV is begun she is given IV fluid antibiotic and the hospitalist is consulted for admission to the hospital. Departure - Departure Disposition: 66 [facility] DC/Xfer Clinical Impression: Delirium, Pneumonia
[2017-05-26 11:48] LABS: BASOPHILS # (AUTO) 0.1 10^3/uL (0.0-0.1); BASOPHILS % (AUTO) 0.4 %; HGB - HEMOGLOBIN 15.8 g/dL (12.0-16.0); LYMPHOCYTES # (AUTO) 1.7 10^3/uL (1.5-3.5); LYMPHOCYTES % (AUTO) 11.7 %; MEAN CORPUSCULAR HEMOGLOBIN 29.8 pg (27.0-31.0); MEAN CORPUSCULAR HGB CONC 33.6 g/dL (32.0-36.0); MEAN CORPUSCULAR VOLUME 88.8 fL (81.0-99.0); MEAN PLATELET VOLUME 7.9 fL (7.9-10.8); NEUTROPHILS # (AUTO) 11.9 10^3/uL (1.5-6.6); NEUTROPHILS % (AUTO) 80.9 %; PLT - PLATELET COUNT 221 10^3/uL (130-450); RED BLOOD COUNT 5.31 10^6/uL (4.20-5.40); RED CELL DISTRIBUTION WIDTH 14.6 % (12.0-15.0); WHITE BLOOD COUNT 14.7 x10^3/uL (4.8-10.8)
[2017-05-26 11:55] LABS: ALBUMIN/GLOBULIN RATIO 1.2 (1.0-2.2); BILIRUBIN,TOTAL 0.7 mg/dL (0.2-1.0); CALCIUM 8.8 mg/dL (8.5-10.3); CREATININE 0.7 mg/dL (0.4-1.0); TOTAL PROTEIN 7.4 g/dL (6.7-8.2)
[2017-05-26 12:13] LABS: PLATELET ESTIMATE, MANUAL NORMAL (130-450,000) (NORMAL); PLATELET MORPHOLOGY NORMAL APPEARANCE (NORMAL); RBC MORPHOLOGY (MULTIPLE) NORMAL APPEARANCE (NORMAL)
--- NOTE | 2017-05-26 12:27 | XRAY Report ---
EXAM: CHEST RADIOGRAPHY EXAM DATE: 05/26/2017 12:09 PM. CLINICAL HISTORY: Cough and rhonchi. COMPARISON: 2 views 03/07/2017. TECHNIQUE: 1 view. FINDINGS: Lungs/Pleura: Interval decreased lung volumes bilaterally. Associated increased bronchovascular alfonso ngs may in large part be due to hypoinflation but mild inflammatory process cannot definitely be excl uded. No focal consolidation demonstrate. No definite pleural effusion. No pneumothorax. Mediastinum: Within exam limitations, the cardiomediastinal contour is normal. Other: None. IMPRESSION: 1. Hypoinflation. 2. Mild increased vascular and interstitial markings bilaterally may be related to hypoinflation. Mil d interstitial inflammatory changes cannot definitely be excluded. No focal consolidation. [facility] Referring Provider Line: [phone] SITE ID: [id number]
[2017-05-26] MEDS ORDERED: cefTRIAXone 1 GM in SODIUM CHLORIDE 0.9% MINIBAG 100 ML IV STA (12:35)
--- NOTE | 2017-05-26 13:42 | HISTORY & PHYSICAL EXAMINATION ---
Chief Complaint - Chief Complaint Chief Complaint: cough History of Present Illness - Admitted From Admitted From:: ED - History Obtained From Records Reviewed: yes History obtained from: patient, chart review, ED report. - History of Present Illness HPI Comment/Other: Annie Barnard is a developmentally delayed 37-year female with a past medical history of diabetes mellitus type 2, hypertension, hyperlipidemia, asthma, sleep apnea, migraines, periperal neuropathy, seizure disorder, GERD, chronic diarrhea, ulcers, incontinence, depression, anxiety, bipolar disorder, schizophrenia, ADD, PTSD, OCD, and osteoarthritis. The patient came to the ED today after falling while on her way to the bathroom around 4AM, and a second fall around 9AM. She had associated SOB, diaphoresis, and AMS. EMS were called and brought her to the ED when she was found to have a cough and congestion. Chest x-ray shows bilateral infiltrates, so she will be admitted to the hospitalist service for further treatment. History - Past Medical History Cardiovascular: reports: Hypertension, High cholesterol, Other Respiratory: reports: Asthma, COPD, Sleep apnea, CPAP use Neuro: reports: Headache/migraine, Peripheral neuropathy, Seizure disorder Endocrine/Autoimmune: reports: Type 2 diabetes GI: reports: GERD, Ulcers, Chronic diarrhea, Other CLASSIFIED ADVERTISING MANAGER: reports: None : reports: Incontinence HEENT: reports: None Psych: reports: Depression, Anxiety, Bipolar disorder, Schizophrenia, ADD/ADHD, Post traumatic stress disorder, Obsessive compulsive disorder Musculoskeletal: reports: Osteoarthritis, Osteoporosis Derm: reports: Other drug resistant infections MRSA Hx?: Yes - Past Surgical History General: reports: Cholecystectomy /CLASSIFIED ADVERTISING MANAGER: reports: Tubal ligation, Other HEENT: reports: Tonsil/Adenoidectomy - Family & Social History Family History: Mother: Alive and Well, Father: , Cancer, Sister: Alive and Well, Brother: Alive and Well Living arrangement: At home Living Situation: With spouse/s.o. Social History Notes: The patient was born in [place], met her to be, and they were in 2000. She became homeless in 2007. Again moved would [facility] 4 years ago. She was up to 3-1/2-4 packs of cigarettes. She stopped smoking about a year ago but then restarted and has been smoking less. The patient has no history of alcohol or drug abuse. She is on disability for her psychiatric disorder and has in-home support several hours a week. She currently lives in a trailer behind the [facility] in [place]. She has 1 child who lives with her mother. - Substance History Use: Uses substance without health or social issues: Tobacco Abuse: Recurrent use of substance despite neg consequences: NONE Dependence: Experiences withdrawal or developed tolerances: Tobacco Tobacco Details: Cigarettes - POLST Patient has POLST: No POLST Status: Full Code Meds/Allgy - Home Medications Home Medications: Ambulatory Orders Medication Instructions Recorded Confirmed Insulin Regular, Human [Humulin R 0.12 ml SUBQ BID 10/31/16 05/26/17 U-500] Zonisamide [Zonegran] 200 mg PO BID 12/02/16 05/26/17 Metformin HCl 1,000 mg PO BIDWM 02/15/17 05/26/17 acetaZOLAMIDE [Acetazolamide] 500 mg PO BID 02/15/17 05/26/17 Atorvastatin Calcium 40 mg PO QPM 05/26/17 05/26/17 Baclofen [Baclofen] 20 mg PO TID PRN 05/26/17 05/26/17 Esomeprazole Magnesium 40 mg PO QDAC 05/26/17 05/26/17 [Esomeprazole Magnesium] Insulin Aspart [Novolog Flexpen] 1 - 10 units SUBQ TIDWM 05/26/17 05/26/17 - Allergies Allergies/Adverse Reactions: Allergies Allergy/AdvReac Type Severity Reaction Status Date / Time Latex, Natural Rubber Allergy Mild Rash Verified 05/24/17 20:51 acetaminophen [From Vicodin] Allergy Hives Verified 05/24/17 20:51 hydrocodone bitartrate * Allergy Hives Verified 05/24/17 20:51 [From Vicodin] Penicillins Allergy Rash Verified 05/24/17 20:51 tramadol Allergy Rash Verified 05/24/17 20:51 adhesive AdvReac Intermediate chemical Verified 05/24/17 20:51 logan haloperidol [From Haldol] AdvReac Unknown Hallucinati Verified 05/24/17 20:51 ons iodine AdvReac Unknown Rash Verified 05/24/17 20:51 latex AdvReac Unknown Respiratory Verified 05/24/17 20:51 lamotrigine [From Lamictal] AdvReac Rash Verified 05/24/17 20:51 varenicline tartrate * AdvReac Hallucinati Verified 05/24/17 20:51 [From Chantix] ons tammy AdvReac Intermediate Unknown Uncoded 05/24/17 20:51 Review of Systems - Constitutional Constitutional: reports: Fatigue, Fever, Chills, Weakness, Poor appetite, Diaphoresis - Ears, Nose & Throat Ears, Nose & Throat: reports: Nasal congestion, Sore throat - Cardiovascular Cariovascular: reports: Lightheadedness, Syncope, Exertional dyspnea, Decr. exercise tolerance - Respiratory Respiratory: reports: Cough, SOB at rest, SOB with exertion - Gastrointestinal Gastrointestinal: reports: Diarrhea - Genitourinary Genitourinary: reports: Dysuria, Incontinence - Integumentary Integumentary: reports: Dryness - Neurological Neurological: reports: General weakness, Memory problems, Pre-existing deficit, Incoordination - Psychiatric Psychiatric: reports: Depression, Anxiety - All Other Systems All Other Systems: reports: Reviewed and negative Exam - Vital Signs Reviewed Vital Signs: Yes Vital Signs: Vital Signs x48h Temp Pulse Resp BP Pulse Ox 05/26/17 13:01 103 H 25 H 122/75 95 05/26/17 12:35 66 12 120/71 96 05/26/17 12:01 65 15 113/70 95 05/26/17 11:37 106 H 26 H 118/101 H 96 05/26/17 11:11 36.2 C L 110 H 24 131/75 H 92 - Physical Exam General Appearance: positive: Moderate distress, Lethargic Eyes Bilateral: positive: Normal inspection ENT: positive: ENT inspection nml, Pharynx nml, Dry mucous membranes Neck: positive: Nml inspection, Thyroid nml, No JVD, Trachea midline Respiratory: positive: Chest non-tender, No respiratory distress, Rales, Rhonchi Cardiovascular: positive: Regular rate & rhythm, No gallop, Systolic murmur Peripheral Pulses: positive: 2+ Abdomen: positive: Non-tender, No organomegaly, Nml bowel sounds, No distention Back: positive: Nml inspection Skin: positive: No rash, Warm, Dry, Diaphoresis Extremities: positive: Non-tender, Full ROM, Pedal edema, Joint swelling Neurologic/Psychiatric: positive: Disoriented to time, Weakness, Sensory loss, Slurred/abnml speech, Depressed mood/affect Reflexes: Bicep (R): 2+, Bicep (L): 2+ Conclusion/Plan - Problem List (1) Pneumonia Conclusion/Plan: Chest x-ray on admission shows hypoinflation and mildly increased vascular and interstitial markings bilaterally. Although there are no charted elevated temps , patient feels hot and can be found to be diaphoretic at times. Plan: Treat with IV antibiotics, IV fluids and supplemental oxygen. (2) Abdominal pain Conclusion/Plan: Patient has noted pain in her abdomen and per , Mark she suffers from IBS. Plan: Monitor and treat for pain. Qualifiers: Abdominal location: unspecified location Qualified Code(s): R10.9 - Unspecified abdominal pain (3) Anxiety Conclusion/Plan: Patient is prescribed several medications for sedation including seroquel for sleep. During the day patient is high-strung and busy. Patient is also dependent on large amounts of coffee and cigarettes. Plan: Manage with medications and frequent nursing care. (4) Chronic pain Conclusion/Plan: Patient is known, especially in our ED for pain medication seeking behaviors. Plan: limit narcotics and try other modes of pain management. Qualifiers: Chronic pain type: due to trauma Qualified Code(s): G89.21 - Chronic pain due to trauma (5) Fall Conclusion/Plan: Patient was found down by her during an unwitnessed fall in which she may have fallen to her knees. Plan: PT evaluation before discharge. Patient wears a LLE boot from a previous ankle fracture. Qualifiers: Encounter type: initial encounter Qualified Code(s): W19.XXXA - Unspecified fall, initial encounter (6) History of seizure disorder Conclusion/Plan: Patient is prescribed 2 mediations, one of which this hospital does not carry. Plan: Allow one of patients home medications to be continued while inpatient. IV keppra if patient shows signs of seizure activity. (7) Hyperglycemia due to type 2 diabetes mellitus Conclusion/Plan: Patient has an elevated HgA1C of 10.9 upon admission. Patient's , Mark states that his does not check her blood sugars and forgets to take her medication. Plan: Monitor blood sugars and hold metformin while inpatient. Qualifiers: Diabetes mellitus medical terminologist insulin use: with longterm use Qualified Code( s): E11.65 - Type 2 diabetes mellitus with hyperglycemia; Z79.4 - care home ( current) use of insulin; Z79.4 - care home (current) use of insulin; Z79.4 - rat exterminator (current) use of insulin; Z79.4 - rat exterminator (current) use of insulin - Lab Results Lab results reviewed: Yes Fish Bones: 05/27/17 07:13 05/27/17 07:13 - Diagnostic Imaging Results Diagnostic Imaging Results: positive: Prelim report reviewed, Final report reviewed Diagnostic Imaging Results Comments: Chest x-ray: FINDINGS: Lungs/Pleura: Interval decreased lung volumes bilaterally. Associated increased bronchovascular markings may in large part be due to hypoinflation but mild inflammatory process cannot definitely be excluded. No focal consolidation demonstrate. No definite pleural effusion. No pneumothorax. Mediastinum: Within exam limitations, the cardiomediastinal contour is normal. Other: None. IMPRESSION: 1. Hypoinflation. 2. Mild increased vascular and interstitial markings bilaterally may be related to hypoinflation. Mild interstitial inflammatory changes cannot definitely be excluded. No focal consolidation. - EKG Results EKG Interpreted Independently: Yes Core Measures - Anticipated LOS I expect patient to be DC'd or transferred within 96 hours.: Yes - DVT/VTE - Prophylaxis VTE/DVT Device ordered at admit?: Yes VTE/DVT Prophylaxis med ordered at admit?: Yes - Stroke - Rehab Assessment Rehab services assessment to be ordered?: Yes - AMI - Statin at Admit Aspirin Prescribed on Admit: Yes
[2017-05-26 17:31] LABS: MUDS CUTOFF CONCENTRATIONS CUTOFF CONC BELOW:
[2017-05-26 17:36] LABS: BILIRUBIN,URINE NEGATIVE (NEGATIVE); GLUCOSE, URINE (UA) 500 mg/dL (NEGATIVE); KETONES,URINE (UA) TRACE mg/dL (NEGATIVE); LEUKOCYTE ESTERASE, URINE NEGATIVE (NEGATIVE); NITRITE,URINE POSITIVE (NEGATIVE); OCCULT BLOOD,URINE TRACE-INTA (NEGATIVE); PH,URINE 7.5 PH (5.0-7.5); PROTEIN,URINE 30 mg/dL (NEGATIVE); UROBILINOGEN,URINE 0.2 (NORMAL) E.U./dL (NORMAL)
[2017-05-26 17:37] LABS: CLARITY,URINE CLOUDY (CLEAR)
[2017-05-26 17:49] LABS: BACTERIA,URINE Many /HPF (None Seen); SQUAMOUS EPITHELIAL CELL,UR FEW Squamous (<= Few)
[2017-05-26 17:50] LABS: AMPHETAMINE SCREEN,URINE NEGATIVE (NEGATIVE); BENZODIAZEPINES SCREEN, URINE NEGATIVE (NEGATIVE); COCAINE SCREEN URINE NEGATIVE (NEGATIVE); METHADONE SCREEN, URINE NEGATIVE (NEGATIVE); METHAMPHETAMINES SCREEN, URINE NEGATIVE (NEGATIVE); OPIATE SCREEN, URINE NEGATIVE (NEGATIVE); OXYCODONE SCREEN, URINE NEGATIVE (NEGATIVE); PROPOXYPHENE SCREEN, URINE NEGATIVE (NEGATIVE); TRICYCLIC ANTIDEPRESSANT,URINE POSITIVE (NEGATIVE)
[2017-05-26] MEDS: SODIUM CHLORIDE FLUSH 0.9% 10 ML SYRINGE IVP SCH ×2 (18:32→21:40)
[2017-05-26] MEDS ORDERED: INSULIN GLARGINE 300 UNIT/3 ML PEN SUBQ SCH (21:00)
[2017-05-26] MEDS: INSULIN ASPART 300 UNIT/3 ML PEN SUBQ SCH (21:40)
[2017-05-26] MEDS: SODIUM CHLORIDE FLUSH 0.9% 10 ML SYRINGE IVP PRN (22:31)
[2017-05-26] MEDS: BACLOFEN 10 MG TABLET PO PRN (22:32)
[2017-05-26] MEDS: KETOROLAC 15 MG/ML VIAL IVP PRN (22:32)
[2017-05-27] MEDS: SODIUM CHLORIDE FLUSH 0.9% 10 ML SYRINGE IVP SCH ×3 (05:37→21:45)
--- NOTE | 2017-05-27 06:04 | ED Physician Documentation ---
ED Addendum - Addendum Addendum: 05/27/17 06:03 unscheduled return visit - chart accessed for follow up and educational purposes
[2017-05-27 06:51] LABS: HB2 TOTAL 15.6 g/dL; HEMOGLOBIN A1C 1.37 g/dL; HEMOGLOBIN A1C % 10.2 % (4.6-6.2)
[2017-05-27] MEDS ORDERED: SODIUM CHLORIDE FLUSH 0.9% 10 ML SYRINGE IVP PRN (07:03)
[2017-05-27] MEDS ORDERED: IBUPROFEN 400 MG TABLET PO PRN (07:03)
[2017-05-27] MEDS ORDERED: PROCHLORPERAZINE 10 MG/2 ML VIAL IVP PRN (07:03)
[2017-05-27] MEDS ORDERED: TEMAZEPAM 15 MG CAPSULE PO PRN (07:03)
[2017-05-27 07:28] LABS: CALCIUM 8.5 mg/dL (8.5-10.3); CREATININE 0.5 mg/dL (0.4-1.0); MAGNESIUM 2.1 mg/dL (1.7-2.8)
[2017-05-27 07:46] LABS: BASOPHILS # (AUTO) 0.1 10^3/uL (0.0-0.1); BASOPHILS % (AUTO) 1.3 %; HGB - HEMOGLOBIN 14.2 g/dL (12.0-16.0); LYMPHOCYTES # (AUTO) 1.6 10^3/uL (1.5-3.5); LYMPHOCYTES % (AUTO) 18.2 %; MEAN CORPUSCULAR HEMOGLOBIN 29.2 pg (27.0-31.0); MEAN CORPUSCULAR HGB CONC 32.8 g/dL (32.0-36.0); MEAN CORPUSCULAR VOLUME 89.2 fL (81.0-99.0); MEAN PLATELET VOLUME 7.1 fL (7.9-10.8); MONOCYTES # (AUTO) 0.6 10^3/uL (0.0-1.0); MONOCYTES % (AUTO) 7.2 %; NEUTROPHILS # (AUTO) 6.5 10^3/uL (1.5-6.6); NEUTROPHILS % (AUTO) 73.3 %; PLT - PLATELET COUNT 243 10^3/uL (130-450); RED BLOOD COUNT 4.85 10^6/uL (4.20-5.40); RED CELL DISTRIBUTION WIDTH 14.7 % (12.0-15.0); WHITE BLOOD COUNT 8.8 x10^3/uL (4.8-10.8)
[2017-05-27] MEDS: INSULIN ASPART 300 UNIT/3 ML PEN SUBQ SCH ×4 (08:33→21:53)
[2017-05-27] MEDS: NS W/20 MEQ KCL 1,000 ML IV SCH ×2 (08:34→20:28)
[2017-05-27] MEDS: POLYETHYLENE GLYCOL 3350 17 GM PACKET PO SCH (08:37)
[2017-05-27] MEDS: BACLOFEN 10 MG TABLET PO PRN (08:42)
[2017-05-27] MEDS: KETOROLAC 15 MG/ML VIAL IVP PRN ×3 (08:43→21:52)
[2017-05-27] MEDS ORDERED: POLYETHYLENE GLYCOL 3350 17 GM PACKET PO SCH (09:00)
[2017-05-27] MEDS: cefTRIAXone 1 GM in SODIUM CHLORIDE 0.9% MINIBAG 100 ML IV SCH (12:16)
[2017-05-27] MEDS ORDERED: ACETAMINOPHEN 500 MG TABLET PO PRN (13:23)
[2017-05-27] MEDS ORDERED: SODIUM CHLORIDE FLUSH 0.9% 10 ML SYRINGE IVP SCH (14:00)
[2017-05-27] MEDS: GABAPENTIN 300 MG CAPSULE PO SCH ×2 (14:18→20:19)
[2017-05-27] MEDS: NICOTINE 21 MG PATCH TOP SCH (14:18)
[2017-05-27] MEDS: SODIUM CHLORIDE FLUSH 0.9% 10 ML SYRINGE IVP PRN ×3 (15:43→23:06)
[2017-05-27] MEDS: NYSTATIN 500000 UNITS/5 ML UDC PO SCH ×2 (18:21→21:46)
[2017-05-27] MEDS: oxyCOD/ACETAMIN 5 MG/325 MG TABLET PO PRN ×2 (18:21→22:26)
[2017-05-27] MEDS ORDERED: INSULIN GLARGINE 300 UNIT/3 ML PEN SUBQ SCH (21:00)
[2017-05-27] MEDS ORDERED: ATORVASTATIN 40 MG TABLET PO SCH (21:00)
[2017-05-27] MEDS ORDERED: QUEtiapine 100 MG TABLET PO SCH (21:00)
[2017-05-27] MEDS ORDERED: ONDANSETRON 4 MG/2 ML VIAL IVP PRN (22:08)
[2017-05-27] MEDS ORDERED: levETIRAcetam INJ 500 MG in SODIUM CHLORIDE 0.9% 100ML 100 ML IV ONE (22:09)
[2017-05-27] MEDS ORDERED: PROCHLORPERAZINE 25 MG SUPP PR PRN (22:10)
[2017-05-27] MEDS ORDERED: SODIUM CHLORIDE 0.9% 100ML 100 ML IV ONE (22:28)
--- NOTE | 2017-05-27 22:31 | PROVIDER PROGRESS NOTE ---
Subjective - Prog Note Date Prog Note Date: 05/27/17 Prog Note Time: 08:00 - Subjective Pt reports feeling: Improved Subjective: Annie is much different from the time of admission and is fully conversational. She denies SOB, chest pain, N/V or a new cough. Current Medications - Current Medications Current Medications: Active Medications Acetaminophen (Tylenol) 1,000 mg PO Q6HR PRN PRN Reason: Pain or Fever > 38C (100.4F) Last Admin: 05/27/17 14:16 Dose: 1,000 mg Acetazolamide (Diamox Er) 500 mg PO BID [facility] Last Admin: 05/27/17 20:19 Dose: 500 mg Atorvastatin Calcium (Lipitor) 40 mg PO QPM [facility] Last Admin: 05/27/17 20:18 Dose: 40 mg Baclofen (Lioresal) 20 mg PO TID PRN PRN Reason: MUSCLESPASM Last Admin: 05/27/17 08:42 Dose: 20 mg Gabapentin (Neurontin) 300 mg PO BID [facility] Last Admin: 05/27/17 20:19 Dose: 300 mg Ceftriaxone Sodium 1 gm/ (Sodium Chloride) 100 mls @ 200 mls/hr IV DAILY@1200 [facility] Last Infusion: 05/27/17 12:50 Dose: Infused Potassium Chloride/Sodium Chloride (Normal Saline 0.9% W/20 Meq Kcl) 1,000 mls @ 100 mls/hr IV .Q10H [facility] Last Admin: 05/27/17 20:28 Dose: 100 mls/hr Ibuprofen (Motrin) 400 mg PO Q4HR PRN PRN Reason: Pain 1 to 4 Insulin Aspart (Novolog) 2 - 10 unit SUBQ 0800,1200,1700,2100 [facility] PRN Reason: Protocol Last Admin: 05/27/17 21:53 Dose: 6 unit Insulin Glargine (Lantus Solostar) 20 unit SUBQ QPM [facility] Last Admin: 05/27/17 21:55 Dose: 20 unit Ketorolac Tromethamine (Toradol Inj) 15 mg IVP Q6HR PRN PRN Reason: PAIN Stop: 05/31/17 21:58 Last Admin: 05/27/17 21:52 Dose: 15 mg Nicotine (Nicoderm) 1 patch TOP DAILY [facility] Last Admin: 05/27/17 14:18 Dose: Not Given Nystatin (Mycostatin) 5 ml PO QID [facility] Last Admin: 05/27/17 21:46 Dose: 5 ml Ondansetron HCl (Zofran Inj) 4 mg IVP Q4HR PRN PRN Reason: Nausea / Vomiting 1st choice Oxycodone/Acetaminophen (Percocet 5 Mg/325 Mg) 1 tab PO Q4HR PRN PRN Reason: PAIN Last Admin: 05/27/17 22:26 Dose: 1 tab (Zonisamide [ Zonegran] 200 Mg) Tab 1 each PO BID [facility] Last Admin: 05/27/17 20:19 Dose: 1 each Polyethylene Glycol (Miralax) 17 gm PO DAILY [facility] Last Admin: 05/27/17 08:37 Dose: 17 gm Prochlorperazine Edisylate (Compazine Inj) 10 mg IVP Q6HR PRN PRN Reason: Nausea / Vomiting 3RD CHOICE Last Admin: 05/27/17 16:55 Dose: 10 mg Prochlorperazine Maleate (Compazine Supp) 25 mg MO BID PRN PRN Reason: Nausea / Vomiting 2ND CHOICE Last Admin: 05/27/17 22:23 Dose: 25 mg Quetiapine Fumarate (Seroquel) 400 mg PO QPM [facility] Last Admin: 05/27/17 20:18 Dose: 400 mg Sodium Chloride (Normal Saline Flush 0.9%) 10 ml IVP PRN PRN PRN Reason: NEEDED PER PROVIDER ORDERS Last Admin: 05/27/17 21:45 Dose: 20 ml Sodium Chloride (Normal Saline Flush 0.9%) 10 ml IVP Q8HR [facility] Last Admin: 05/27/17 21:45 Dose: 10 ml Temazepam (Restoril) 15 mg PO QPM PRN PRN Reason: Insomnia Insulin Regular, Human [Humulin R U-500] 0.12 ml SUBQ BID 10/31/16 Zonisamide [Zonegran] 200 mg PO BID 12/02/16 Metformin HCl 1,000 mg PO BIDWM 02/15/17 acetaZOLAMIDE [Acetazolamide] 500 mg PO BID 02/15/17 Atorvastatin Calcium 40 mg PO QPM 05/26/17 Baclofen [Baclofen] 20 mg PO TID PRN 05/26/17 Esomeprazole Magnesium [Esomeprazole Magnesium] 40 mg PO QDAC 05/26/17 Insulin Aspart [Novolog Flexpen] 1 - 10 units SUBQ TIDWM 05/26/17 Objective - Vital Signs/Intake & Output Reviewed Vital Signs: Yes Vital Signs: Vital Signs x48h Temp Pulse Resp BP Pulse Ox 05/27/17 15:35 36.9 C 74 16 129/77 97 Intake & Output: Intake & Output 05/24/17 05/25/17 05/26/17 05/27/17 23:59 23:59 23:59 23:59 Intake Total 1940 3845 Output Total 375 3250 Balance 1565 595 - Objective General Appearance: positive: No acute distress, Alert Eyes Bilateral: positive: Normal inspection Eyes: OU Scleral icterus ENT: positive: ENT inspection nml, Pharynx nml, No signs of dehydration Neck: positive: Nml inspection, Thyroid nml, No JVD, Trachea midline Respiratory: positive: Chest non-tender, No respiratory distress, Wheezes, Rhonchi Cardiovascular: positive: Regular rate & rhythm, No gallop Peripheral Pulses: 2+ Radial (R), 2+ Radial (L) Abdomen: positive: Nml bowel sounds, Tenderness, Guarding Back: positive: Nml inspection, Other (heat rash, non-raised, non-puritic.) Skin: positive: Warm, Dry, Skin rash (mild on upper back, likely from being diaphoretic on admission.) Extremities: positive: Pedal edema, Calf tenderness, Joint swelling, Other ( sore BLE from previous falls.) Neurologic/Psychiatric: positive: Oriented x3, CN's nml (2-12), Motor nml, Sensation nml, Depressed mood/affect, Other (baseline delay.) Reflexes: Bicep (R): 2+, Bicep (L): 2+ - Lab Results Fish Bones: 05/27/17 07:13 05/27/17 07:13 Other Labs: Lab Results x24hrs 05/27/17 05/27/17 05/27/17 Range/Units 07:13 07:13 05:40 WBC 8.8 (4.8-10.8) x10^3/uL RBC 4.85 (4.20-5.40) 10^6/uL Hgb 14.2 (12.0-16.0) g/dL Hct 43.3 (37.0-47.0) % MCV 89.2 (81.0-99.0) fL MCH 29.2 (27.0-31.0) pg MCHC 32.8 (32.0-36.0) g/dL RDW 14.7 (12.0-15.0) % Plt Count 243 (130-450) 10^3/uL MPV 7.1 L (7.9-10.8) fL Neut # 6.5 (1.5-6.6) 10^3/uL Lymph # 1.6 (1.5-3.5) 10^3/uL [place] # 0.6 (0.0-1.0) 10^3/uL Eos # 0.0 (0.0-0.7) 10^3/uL Baso # 0.1 (0.0-0.1) 10^3/uL Absolute Nucleated RBC 0.01 x10^3/uL Nucleated RBC % 0.1 /100WBC Sodium 141 (135-145) mmol/L Potassium 3.5 (3.5-5.0) mmol/L Chloride 113 H (101-111) mmol/L Carbon Dioxide 21 (21-32) mmol/L Anion Gap 7.0 (6-13) BUN 16 (6-20) mg/dL Creatinine 0.5 (0.4-1.0) mg/dL Estimated GFR (MDRD) 140 (>89) Glucose 251 H (70-100) mg/dL Glycated Hemoglobin 10.2 H (4.6-6.2) % Estim Average Glucose 246 H (70-100) Calcium 8.5 (8.5-10.3) mg/dL Magnesium 2.1 (1.7-2.8) mg/dL - Diagnostic Imaging Diagnostic Imaging Results: positive: Final report reviewed Assessment/Plan - Problem List (1) Pneumonia Impression: Chest x-ray on admission shows hypoinflation and mildly increased vascular and interstitial markings bilaterally. Although there are no charted elevated temps , patient feels hot and can be found to be diaphoretic at times. Plan: Treat with IV antibiotics, IV fluids and supplemental oxygen. (2) Abdominal pain Impression: Patient has noted pain in her abdomen and per , Mark she suffers from IBS. Plan: Monitor and treat for pain. Qualifiers: Abdominal location: unspecified location Qualified Code(s): R10.9 - Unspecified abdominal pain (3) Anxiety Impression: Patient is prescribed several medications for sedation including seroquel for sleep. During the day patient is high-strung and busy. Patient is also dependent on large amounts of coffee and cigarettes. Plan: Manage with medications and frequent nursing care. (4) Chronic pain Impression: Patient is known, especially in our ED for pain medication seeking behaviors. Plan: limit narcotics and try other modes of pain management. Qualifiers: Chronic pain type: due to trauma Qualified Code(s): G89.21 - Chronic pain due to trauma (5) Fall Impression: Patient was found down by her during an unwitnessed fall in which she may have fallen to her knees. Plan: PT evaluation before discharge. Patient wears a LLE boot from a previous ankle fracture. Qualifiers: Encounter type: initial encounter Qualified Code(s): W19.XXXA - Unspecified fall, initial encounter (6) History of seizure disorder Impression: Patient is prescribed 2 mediations, one of which this hospital does not carry. Plan: Allow one of patients home medications to be continued while inpatient. IV keppra if patient shows signs of seizure activity. (7) Hyperglycemia due to type 2 diabetes mellitus Impression: Patient has an elevated HgA1C of 10.9 upon admission. Patient's , Mark states that his does not check her blood sugars and forgets to take her medication. Blood sugars continue to run high in the 200's. Plan: Monitor blood sugars and hold metformin while inpatient. SSI will be added for meals. Qualifiers: Diabetes mellitus terminal superintendent insulin use: with residential use Qualified Code( s): E11.65 - Type 2 diabetes mellitus with hyperglycemia; Z79.4 - terminal superintendent ( current) use of insulin; Z79.4 - senior care (current) use of insulin; Z79.4 - terminal superintendent (current) use of insulin; Z79.4 - terminal superintendent (current) use of insulin
[2017-05-28] MEDS: SODIUM CHLORIDE FLUSH 0.9% 10 ML SYRINGE IVP SCH ×2 (05:02→11:10)
[2017-05-28] MEDS: oxyCOD/ACETAMIN 5 MG/325 MG TABLET PO PRN ×2 (05:05→10:35)
[2017-05-28 05:58] LABS: BASOPHILS # (AUTO) 0.1 10^3/uL (0.0-0.1); BASOPHILS % (AUTO) 1.4 %; HGB - HEMOGLOBIN 13.5 g/dL (12.0-16.0); LYMPHOCYTES # (AUTO) 2.2 10^3/uL (1.5-3.5); LYMPHOCYTES % (AUTO) 38.9 %; MEAN CORPUSCULAR HEMOGLOBIN 29.4 pg (27.0-31.0); MEAN CORPUSCULAR HGB CONC 32.5 g/dL (32.0-36.0); MEAN CORPUSCULAR VOLUME 90.5 fL (81.0-99.0); MEAN PLATELET VOLUME 7.4 fL (7.9-10.8); MONOCYTES # (AUTO) 0.5 10^3/uL (0.0-1.0); MONOCYTES % (AUTO) 8.1 %; NEUTROPHILS # (AUTO) 2.9 10^3/uL (1.5-6.6); NEUTROPHILS % (AUTO) 51.6 %; PLT - PLATELET COUNT 192 10^3/uL (130-450); RED BLOOD COUNT 4.57 10^6/uL (4.20-5.40); RED CELL DISTRIBUTION WIDTH 14.6 % (12.0-15.0); WHITE BLOOD COUNT 5.6 x10^3/uL (4.8-10.8)
[2017-05-28 06:12] LABS: ALBUMIN 3.6 g/dL (3.2-5.5); ALBUMIN/GLOBULIN RATIO 1.3 (1.0-2.2); BILIRUBIN,TOTAL 0.5 mg/dL (0.2-1.0); CALCIUM 8.1 mg/dL (8.5-10.3); CREATININE 0.5 mg/dL (0.4-1.0); TOTAL PROTEIN 6.4 g/dL (6.7-8.2)
[2017-05-28] MEDS ORDERED: SODIUM CHLORIDE 0.65% NASAL SPRAY NAS PRN (07:05)
[2017-05-28 07:32] VITALS: BP 112/66
[2017-05-28] MEDS: NS W/20 MEQ KCL 1,000 ML IV SCH (08:11)
[2017-05-28] MEDS: INSULIN ASPART 300 UNIT/3 ML PEN SUBQ SCH ×2 (08:13→11:45)
[2017-05-28] MEDS: NICOTINE 21 MG PATCH TOP SCH ×2 (08:14→08:17)
[2017-05-28] MEDS: NYSTATIN 500000 UNITS/5 ML UDC PO SCH ×2 (08:14→11:42)
[2017-05-28] MEDS: GABAPENTIN 300 MG CAPSULE PO SCH (08:14)
[2017-05-28] MEDS: POLYETHYLENE GLYCOL 3350 17 GM PACKET PO SCH (08:15)
--- NOTE | 2017-05-28 10:52 | Discharge Plan ---
Discharge Plan Disposition: 01 Home, Self Care Condition: Good Prescriptions: Azithromycin [Zithromax Tri-Pee] 500 mg PO DAILY #5 tablet Diet: Diabetic Activity Restrictions: No Restrictions Assistance Devices: Walker Weight Bearing: Full Weight Additional Instructions or Follow Up instructions: You were admitted for mild pneumonia and a fall. You recieved IV antibiotics. Your blood sugars appear to be uncontrolled over the past few months and you should set reminders for blood sugar checks and medications. Please continue on oral antibiotics for the pneumonia for another 7 days. Take all of your medications as prescribed. Follow-Up Care: [facility] [place] [facility] - Diabetes Ed No Smoking: If you smoke, Please STOP! Call for help. Follow-up with: Lorna Mulligan MD [Primary Care Provider] -
--- NOTE | 2017-05-28 11:27 | DISCHARGE SUMMARY ---
Discharge Summary Admit Date: 05/26/17 Discharge Date: 05/28/17 Discharging Provider: ANGY Bah Primary Care Provider: Lorna Mulligan Code Status: Attempt Resuscitation Condition at Discharge: Good Discharge Disposition: Home, Self Care - DIAGNOSES Admission Diagnoses: Seizure disorder (G40.909) Chronic respiratory failure with hypercapnia (J96.12) Type II diabetes mellitus with complication, uncontrolled (E11.8) Depression (F32.9) Discharge Diagnoses with Status of Each Condition: Seizure disorder (G40.909) chronic, controlled. Chronic respiratory failure with hypercapnia (J96.12) chronic, controlled with inhalers. Type II diabetes mellitus with complication, uncontrolled (E11.8) chronic, uncontrolled at home, but managed well while patient was inpatient. Depression (F32.9) Chronic, stable. - HPI History of Present Illness: Annie Barnard is a developmentally delayed 37-year female with a past medical history of diabetes mellitus type 2, hypertension, hyperlipidemia, asthma, sleep apnea, migraines, periperal neuropathy, seizure disorder, GERD, chronic diarrhea, ulcers, incontinence, depression, anxiety, bipolar disorder, schizophrenia, ADD, PTSD, OCD, and osteoarthritis. The patient came to the ED today after falling while on her way to the bathroom around 4AM, and a second fall around 9AM. She had associated SOB, diaphoresis, and AMS. EMS were called and brought her to the ED when she was found to have a cough and congestion. Chest x-ray shows bilateral infiltrates, so she will be admitted to the hospitalist service for further treatment. - HOSPITAL COURSE Hospital Course: The following problems/diagnoses were prevalent during the hospital stay: Pneumonia: Chest x-ray on admission shows hypoinflation and mildly increased vascular and interstitial markings bilaterally. Although there are no charted elevated temps, patient feels hot and can be found to be diaphoretic at times. Patient was treated with IV antibiotics as a prophylaxis as she has underlying lung disease. She was also given IV fluids and supplemental oxygen. Pneumonia was ruled out at the time of discharge, although she was prescribed a short course of Azithromycin for this medications anti-inflammatory properties. Abdominal pain: Patient has noted pain in her abdomen and per , Mark she suffers from IBS. Patient was monitored and treated for pain. Anxiety: Patient is prescribed several medications for sedation including seroquel for sleep. During the day patient is high-strung and busy. Patient is also dependent on large amounts of coffee and cigarettes. Patient was managed with medications and frequent nursing care. Chronic pain: Patient is known, especially in our ED for pain medication seeking behaviors. Narcotics were limited and other modes of pain management were implemented such as distraction and mobility. Fall: Patient was found down by her during an unwitnessed fall in which she may have fallen to her knees. Patient was evaluated by PT before discharge , who noted patient to be at baseline. Patient wears a LLE boot from a previous ankle fracture. A left knee x-ray was completed prior to discharge that was negative for fractures. History of seizure disorder: Patient is prescribed 2 mediations, one of which this hospital does not carry. A home medications was continued while inpatient. IV keppra if patient shows signs of seizure activity. Patient had a very mild seizure noted by nursing after a "bar code scanning beam" was accidentally placed in the patient's view. It was very mild, only under a minute in duration and managed with IV Keppra. There was no interruption or compromise to her airway and was at the bedside. Hyperglycemia dut to type 2 DM: Patient has an elevated HgA1C of 10.9 upon admission. Patient's , Mark states that his does not check her blood sugars and forgets to take her medication. Blood sugars continue to run high in the 200's. Patient's blood sugars were monitored and metformin was held while inpatient. SSI was added for meals. Disposition: Patient was very anxious to get home on the day of discharge and was upset when her did not arrive until later in the day to pick her up. She and her were encouraged to allow more home visits and set reminders to ensure insulin administration. She was transported via private car in stable condition home. - ALLERGIES Allergies/Adverse Reactions: Allergies Allergy/AdvReac Type Severity Reaction Status Date / Time Latex, Natural Rubber Allergy Mild Rash Verified 05/24/17 20:51 acetaminophen [From Vicodin] Allergy Hives Verified 05/24/17 20:51 hydrocodone bitartrate * Allergy Hives Verified 05/24/17 20:51 [From Vicodin] Penicillins Allergy Rash Verified 05/24/17 20:51 tramadol Allergy Rash Verified 05/24/17 20:51 adhesive AdvReac Intermediate chemical Verified 05/24/17 20:51 logan haloperidol [From Haldol] AdvReac Unknown Hallucinati Verified 05/24/17 20:51 ons iodine AdvReac Unknown Rash Verified 05/24/17 20:51 latex AdvReac Unknown Respiratory Verified 05/24/17 20:51 lamotrigine [From Lamictal] AdvReac Rash Verified 05/24/17 20:51 varenicline tartrate * AdvReac Hallucinati Verified 05/24/17 20:51 [From Chantix] ons steriods AdvReac Intermediate Unknown Uncoded 05/24/17 20:51 - MEDICATIONS Home Medications: Ambulatory Orders Medication Instructions Recorded Confirmed Insulin Regular, Human [Humulin R 0.12 ml SUBQ BID 10/31/16 05/26/17 U-500] Zonisamide [Zonegran] 200 mg PO BID 12/02/16 05/26/17 Metformin HCl 1,000 mg PO BIDWM 02/15/17 05/26/17 acetaZOLAMIDE [Acetazolamide] 500 mg PO BID 02/15/17 05/26/17 Atorvastatin Calcium 40 mg PO QPM 05/26/17 05/26/17 Baclofen 20 mg PO TID PRN 05/26/17 05/26/17 Esomeprazole Magnesium 40 mg PO QDAC 05/26/17 05/26/17 Insulin Aspart [Novolog Flexpen] 1 - 10 units SUBQ TIDWM 05/26/17 05/26/17 Azithromycin [Zithromax Tri-Pee] 500 mg PO DAILY #5 tablet 05/28/17 Enoxaparin [Lovenox] 30 mg SUBQ Q12H #20 syringe 05/31/17 Oxycodone HCl/Acetaminophen 1 - 2 tab PO Q4H PRN #15 tablet 05/31/17 [Percocet 5-325 mg Tablet] - PHYSICAL EXAM AT DISCHARGE General Appearance: positive: No acute distress, Alert Eyes Bilateral: positive: Normal inspection, PERRL ENT: positive: ENT inspection nml, Pharynx nml, No signs of dehydration Neck: positive: Nml inspection, Thyroid nml, No JVD, Trachea midline Respiratory: positive: Chest non-tender, No respiratory distress, Wheezes, Other (crackles) Cardiovascular: positive: Regular rate & rhythm, No gallop, Systolic murmur Peripheral Pulses: positive: 1+ Abdomen: positive: Non-tender, No organomegaly, Nml bowel sounds Back: positive: Nml inspection Skin: positive: No rash, Warm, Dry Extremities: positive: Nml appearance, Pedal edema, Joint swelling, Other ( Brace on LLE) Neurologic/Psychiatric: positive: Oriented x3, CN's nml (2-12), Motor nml, Sensation nml, Depressed mood/affect, Other (developmentally delayed, baseline.) Reflexes: Bicep (R): 3+, Bicep (L): 3+ - LABS Result Diagrams: 05/28/17 05:30 05/28/17 05:30 - DIAGNOSTIC IMAGING Diagnostic Imaging Results: Prelim report reviewed, Final report reviewed Diagnostic Imaging Results Comments: Chest x-ray: FINDINGS: Lungs/Pleura: Interval decreased lung volumes bilaterally. Associated increased bronchovascular markings may in large part be due to hypoinflation but mild inflammatory process cannot definitely be excluded. No focal consolidation demonstrate. No definite pleural effusion. No pneumothorax. Mediastinum: Within exam limitations, the cardiomediastinal contour is normal. Other: None. IMPRESSION: 1. Hypoinflation. 2. Mild increased vascular and interstitial markings bilaterally may be related to hypoinflation. Mild interstitial inflammatory changes cannot definitely be excluded. No focal consolidation. - FOLLOW UP Follow Up: Azithromycin [Zithromax Tri-Pee] 500 mg PO DAILY #5 tablet Diet: Diabetic Activity Restrictions: No Restrictions Assistance Devices: Walker Weight Bearing: Full Weight Additional Instructions or Follow Up instructions: You were admitted for mild pneumonia and a fall. You recieved IV antibiotics. Your blood sugars appear to be uncontrolled over the past few months and you should set reminders for blood sugar checks and medications. Please continue on oral antibiotics for the pneumonia for another 7 days. Take all of your medications as prescribed. Follow-Up Care: [facility] - [facility] Ed - TIME SPENT Time Spent in Discharge (Minutes): 60
[2017-05-28] MEDS: cefTRIAXone 1 GM in SODIUM CHLORIDE 0.9% MINIBAG 100 ML IV SCH (11:42)
--- NOTE | 2017-05-29 08:56 | XRAY Report ---
DATE OF SERVICE: 05/28/2017 LEFT KNEE: 05/28/2017 COMPARISON: Left knee 05/23/2017. INDICATION: Multiple falls at home. TECHNIQUE: Four views. FINDINGS: There are mild tricompartmental degenerative changes. Normal alignment. No evidence of acute fracture. No effusion. IMPRESSION: Mild tricompartmental osteoarthritis. Stable exam. TD: 05/28/2017 19:36 [facility]
== END 2017-05-28 13:05 | disposition home or self-care (01) | DRG 189 ==
LOC: EDUNIT# → ED 11:08 → MS2 13:39
PROVIDERS: ADMIT Nurse Practitioner; ATTEND Nurse Practitioner
DX: R41.0 Disorientation, unspecified (principal); J18.9 Pneumonia, unspecified organism; J96.12 Chronic respiratory failure with hypercapnia; J44.9 Chronic obstructive pulmonary disease, unspecified; G40.909 Epilepsy, unspecified, not intractable, without status epilepticus; E86.0 Dehydration; E11.42 Type 2 diabetes mellitus with diabetic polyneuropathy; J45.909 Unspecified asthma, uncomplicated; E11.65 Type 2 diabetes mellitus with hyperglycemia; F17.200 Nicotine dependence, unspecified, uncomplicated; I10 Essential (primary) hypertension; E78.5 Hyperlipidemia, unspecified; G47.30 Sleep apnea, unspecified; G89.21 Chronic pain due to trauma; K21.9 Gastro-esophageal reflux disease without esophagitis; F41.9 Anxiety disorder, unspecified; F31.9 Bipolar disorder, unspecified; F20.9 Schizophrenia, unspecified; F43.10 Post-traumatic stress disorder, unspecified; F42.9 Obsessive-compulsive disorder, unspecified; F90.9 Attention-deficit hyperactivity disorder, unspecified type; M19.90 Unspecified osteoarthritis, unspecified site; K58.0 Irritable bowel syndrome with diarrhea; F17.210 Nicotine dependence, cigarettes, uncomplicated; Z76.5 Malingerer [conscious simulation]; Z79.84 Long term (current) use of oral hypoglycemic drugs; Z91.81 History of falling; Z79.4 Long term (current) use of insulin; Z86.14 Personal history of Methicillin resistant Staphylococcus aureus infection
CPT/HCPCS: 36415; 71045; 80048; 80053; 80306; 81001; 81003; 82803; 83036; 83605; 83690; 83735; 84484; 85025; 87040; 87086; 96361; 96365; 99284; 99285

== ENCOUNTER 2017-05-31 17:49 | Outpatient (CLI) | payer MEDICARE, MEDICAID | END 2017-05-31 17:50 | disposition critical access hospital (66) | LOC: EMS 17:49 | PROVIDERS: ATTEND Surgery | DX: M79.672 Pain in left foot (principal) | CPT/HCPCS: A0425; A0429 ==

== ENCOUNTER 2017-05-31 18:02 | Emergency (ER) | payer MEDICARE, MEDICAID ==
[2017-05-31] MEDS ORDERED: PROMETHAZINE 25 MG/1 ML VIAL IM STA (18:09)
[2017-05-31] MEDS ORDERED: KETOROLAC 60 MG/2 ML VIAL IM STA (18:09)
--- NOTE | 2017-05-31 18:12 | ED Physician Documentation ---
PD HPI LOWER EXT INJURY - Stated complaint Stated Complaint: FOOT INJURY - Chief complaint Chief Complaint: Ext Problem - History obtained from History obtained from: Patient, EMS - History of Present Illness PD HPI LOW EXT INJURY LOCATION: Other (37-year-old woman with long-standing diabetes and psychiatric issues. According the records she fell on May 23 and injured her feet. She had x-rays that were negative. She presented the next day for persistent pain and then a few days later for delirium which was thought to be due to pneumonia. She still having severe pain especially over the top of the left foot and ankle despite taking Tylenol and ibuprofen at home. ) Review of Systems Constitutional: denies: Fever, Chills GI: reports: Nausea. denies: Abdominal Pain, Vomiting : reports: Reviewed and negative PD PAST MEDICAL HISTORY - Past Medical History Cardiovascular: Hypertension, High cholesterol, Other Respiratory: Asthma, COPD, Sleep apnea, CPAP use Neuro: Headache/migraine, Peripheral neuropathy, Seizure disorder Endocrine/Autoimmune: Type 2 diabetes GI: GERD, Ulcers, Chronic diarrhea, Other COMPUTERIZED MILL RECORDER: None : Incontinence HEENT: None Psych: Depression, Anxiety, Bipolar disorder, Schizophrenia, ADD/ADHD, Post traumatic stress disorder, Obsessive compulsive disorder Musculoskeletal: Osteoarthritis, Osteoporosis Derm: Other drug resistant infections - Past Surgical History Past Surgical History: Yes General: Cholecystectomy /COMPUTERIZED MILL RECORDER: Tubal ligation, Other HEENT: Tonsil/Adenoidectomy - Present Medications Home Medications: Ambulatory Orders Medication Instructions Recorded Confirmed Insulin Regular, Human [Humulin R 0.12 ml SUBQ BID 10/31/16 05/26/17 U-500] Zonisamide [Zonegran] 200 mg PO BID 12/02/16 05/26/17 Metformin HCl 1,000 mg PO BIDWM 02/15/17 05/26/17 acetaZOLAMIDE [Acetazolamide] 500 mg PO BID 02/15/17 05/26/17 Atorvastatin Calcium 40 mg PO QPM 05/26/17 05/26/17 Baclofen 20 mg PO TID PRN 05/26/17 05/26/17 Esomeprazole Magnesium 40 mg PO QDAC 05/26/17 05/26/17 Insulin Aspart [Novolog Flexpen] 1 - 10 units SUBQ TIDWM 05/26/17 05/26/17 Azithromycin [Zithromax Tri-Pee] 500 mg PO DAILY #5 tablet 05/28/17 Enoxaparin [Lovenox] 30 mg SUBQ Q12H #20 syringe 05/31/17 Oxycodone HCl/Acetaminophen 1 - 2 tab PO Q4H PRN #15 tablet 05/31/17 [Percocet 5-325 mg Tablet] - Allergies Allergies/Adverse Reactions: Allergies Allergy/AdvReac Type Severity Reaction Status Date / Time Latex, Natural Rubber Allergy Mild Rash Verified 05/24/17 20:51 acetaminophen [From Vicodin] Allergy Hives Verified 05/24/17 20:51 hydrocodone bitartrate * Allergy Hives Verified 05/24/17 20:51 [From Vicodin] Penicillins Allergy Rash Verified 05/24/17 20:51 tramadol Allergy Rash Verified 05/24/17 20:51 adhesive AdvReac Intermediate chemical Verified 05/24/17 20:51 logan haloperidol [From Haldol] AdvReac Unknown Hallucinati Verified 05/24/17 20:51 ons iodine AdvReac Unknown Rash Verified 05/24/17 20:51 latex AdvReac Unknown Respiratory Verified 05/24/17 20:51 lamotrigine [From Lamictal] AdvReac Rash Verified 05/24/17 20:51 varenicline tartrate * AdvReac Hallucinati Verified 05/24/17 20:51 [From Chantix] ons steriods AdvReac Intermediate Unknown Uncoded 05/24/17 20:51 - Social History Does the pt smoke?: Yes Smoking Status: Current every day smoker Does the pt drink ETOH?: Yes Does the pt have substance abuse?: Yes - Immunizations Immunizations are current?: Yes - POLST Patient has POLST: No POLST Status: Full Code PD ED PE NORMAL - Vitals Vital signs reviewed: Yes - General General: Alert and oriented X 3, No acute distress - HEENT HEENT: PERRL, EOMI - Neck Neck: Supple, no meningeal sign, No bony TTP - Cardiac Cardiac: RRR, No murmur - Respiratory Respiratory: No respiratory distress, Clear bilaterally - Abdomen Abdomen: Normal bowel sounds, Non tender - Back Back: No CVA TTP, No spinal TTP - Derm Derm: Normal color, Warm and dry - Extremities Extremities: Other (Focused examination of the left lower externally demonstrates no proximal fibular tenderness. She is tender over the top of the foot and the lateral malleolus. She has a lot of bruising near the calcaneus and between the dorsal first and second web space. She has good pedal pulses and normal motion.) - Neuro Neuro: Alert and oriented X 3, Normal speech - Psych Psych: Normal mood, Normal affect Results - Vitals Vitals: Vital Signs - 24 hr 05/31/17 05/31/17 18:07 18:43 Temperature 36.3 C L Heart Rate 95 84 Respiratory 18 18 Rate Blood Pressure 141/90 H 121/89 H O2 Saturation 98 98 Oxygen O2 Source Room air - Rads (name of study) CT LLE Radiology: EMP read contemporaneously (Unstable fracture dislocation in the midfoot with involvement of Lisfranc and plantar first cuneiform to third metatarsal ligament regions) PD MEDICAL DECISION MAKING - ED course ED course: 37-year-old woman with diabetes schizoaffective disorder presents for continued pain in the left foot after negative x-rays about [address] was done showing Lisfranc's fracture. Case was discussed by phone with Dr. Valdez, our on- call orthopedist who felt she would be best managed at [facility] and the case was discussed by phone with Dr. Ceballos who took down her information and will have the clinic call her to arrange for an appointment in a few days. In the meantime he would like her fully splinted and nonweightbearing and on Lovenox twice a day. The patient has some social issues that will make it difficult for her to get transportation to [facility] and I emailed the executive secretary social welfare who will be on tomorrow to contact her. Departure - Departure Disposition: 01 Home, Self Care Clinical Impression: Lisfranc's dislocation Qualifiers: Encounter type: initial encounter Laterality: left Qualified Code(s): S93.325A - Dislocation of tarsometatarsal joint of left foot, initial encounter Condition: Good Prescriptions: Enoxaparin [Lovenox] 30 mg SUBQ Q12H #20 syringe Oxycodone HCl/Acetaminophen [Percocet 5-325 mg Tablet] 1 - 2 tab PO Q4H PRN #15 tablet PRN Reason: Pain Comments: Keep the splint on at all times and dry, do not try to walk or bear weight on that foot.. [facility] should be calling you tomorrow to arrange for a clinic appointment probably on Thursday. You need to take the Lovenox twice a day until they tell you to stop to prevent blood clots. Return if worse.
--- NOTE | 2017-05-31 19:05 | CT Report ---
EXAM: LEFT FOOT CT WITHOUT CONTRAST EXAM DATE: 05/31/2017 06:38 PM. CLINICAL HISTORY: Foot/ankle injury COMPARISON: 05/23/2017 radiograph. TECHNIQUE: Thin-section axial images were acquired of the foot without contrast. Post-processing: Cor onal and sagittal reformats. Other: None. In accordance with CT protocol optimization, one or more of the following dose reduction techniques w ere utilized for this exam: automated exposure control, adjustment of mA and/or KV based on patient s ize, or use of iterative reconstructive technique. FINDINGS: Bones: A small bony calcaneal spur is present. There is lateral subluxation of the second and third m etatarsals relative to the second and third cuneiforms. The lateral subluxation of the second metatar pancho suggests a tear of the Lisfranc ligament. The second metatarsal is also dorsally subluxed relativ e to the second cuneiform. The following ligamentous avulsion fractures are present: 1. Plantar medial proximal first metatarsal 2. Lateral mid-portion of the base of the first metatarsal, nondisplaced. 3. Medial portions of the base of the third metatarsal, including the insertion site of the plantar f irst cuneiform-third metatarsal ligament. 4. The plantar medial portion of the base of the fourth metatarsal. 5. The medial plantar portion of the cuboid. 6. The dorsal proximal portion of the cuboid. Musculature: Normal. No fatty atrophy. Other: There is calcific tendinosis of the distal Achilles tendon insertion. IMPRESSION: 1. Unstable fracture-dislocation pattern in the midfoot with involvement of the Lisfranc and plantar first cuneiform-third metatarsal ligament regions. [facility] Referring Provider Line: [phone] SITE ID: [id number]
--- NOTE | 2017-05-31 19:05 | CT Preliminary Report ---
Exam: CT LOWER EXTREMITY LEFT W/O IMPRESSION: 1. Unstable fracture-dislocation pattern in the midfoot with involvement of the Lisfranc and plantar first cuneiform-third metatarsal ligament regions. [facility] SITE ID: [id number]
[2017-05-31] MEDS ORDERED: ENOXAPARIN 30 MG/0.3 ML SYRINGE SUBQ STA (19:57)
[2017-05-31] MEDS ORDERED: oxyCODONE/ACET 5/325 Prepack 4 PO STA (20:09)
[2017-05-31 20:31] VITALS: BP 129/64
== END 2017-05-31 20:31 | disposition home or self-care (01) ==
LOC: EDUNIT# → ED 18:02
DX: S93.325A Dislocation of tarsometatarsal joint of left foot, initial encounter (principal); W19.XXXA Unspecified fall, initial encounter; E11.42 Type 2 diabetes mellitus with diabetic polyneuropathy; Z79.4 Long term (current) use of insulin; I10 Essential (primary) hypertension; F25.9 Schizoaffective disorder, unspecified; F17.200 Nicotine dependence, unspecified, uncomplicated
CPT/HCPCS: 73700; 96372; 99283; 99284; J1650

== ENCOUNTER 2017-06-05 11:15 | Outpatient (CLI) | payer MEDICARE, MEDICAID | END 2017-06-05 11:16 | disposition critical access hospital (66) | LOC: EMS 11:15 | PROVIDERS: ATTEND Surgery | DX: R06.02 Shortness of breath (principal) | CPT/HCPCS: A0425; A0429 ==

== ENCOUNTER 2017-06-05 11:21 | Emergency (ER) | payer MEDICARE, MEDICAID ==
[2017-06-05 12:51] LABS: BILIRUBIN,URINE NEGATIVE (NEGATIVE); GLUCOSE, URINE (UA) >=1000 mg/dL (NEGATIVE); KETONES,URINE (UA) NEGATIVE (NEGATIVE); LEUKOCYTE ESTERASE, URINE NEGATIVE (NEGATIVE); NITRITE,URINE NEGATIVE (NEGATIVE); OCCULT BLOOD,URINE NEGATIVE (NEGATIVE); PROTEIN,URINE NEGATIVE (NEGATIVE); UROBILINOGEN,URINE 0.2 (NORMAL) E.U./dL (NORMAL)
[2017-06-05 12:53] LABS: CLARITY,URINE CLEAR (CLEAR)
[2017-06-05] MEDS ORDERED: ALBUTEROL NEB 2.5 MG/3 ML INH STA (13:32)
[2017-06-05] MEDS ORDERED: ENOXAPARIN 30 MG/0.3 ML SYRINGE SUBQ STA (13:33)
--- NOTE | 2017-06-05 13:37 | ED Physician Documentation ---
History of Present Illness - Stated complaint Stated Complaint: SOA - Chief complaint Chief Complaint: Resp - History obtained from History obtained from: Patient - History of Present Illness Timing: How many days ago (2) Pain level max: 7 Pain level now: 7 Improved by: albuterol helps the dyspnea and cough Worsened by: nothing - Additonal information Additional information: Patient is a 37-year-old female who presents to the emergency department with dyspnea since yesterday as well as cough. She was recently treated for pneumonia and is concerned that may be coming back. She states that she also moved her left shoulder felt a pop and then had tingling in her arm. This is better now. No chest pain. No pleuritic chest pain. She is currently on Lovenox twice a day as she is in a cast for a Lisfranc fracture and is supposed to have surgery on 11 June at the [facility]. Her only leg pain is at the site of the fracture. Review of Systems Ten Systems: 10 systems reviewed and negative Constitutional: denies: Fever, Chills Ears: denies: Ear pain Nose: denies: Rhinorrhea / runny nose, Congestion Cardiac: denies: Chest pain / pressure, Palpitations Respiratory: reports: Dyspnea, Cough, Wheezing GI: denies: Abdominal Pain, Nausea, Vomiting, Diarrhea : denies: Now [facility] PD PAST MEDICAL HISTORY - Past Medical History Past Medical History: Yes Cardiovascular: Hypertension, High cholesterol, Other Respiratory: Asthma, COPD, Sleep apnea, CPAP use Neuro: Headache/migraine, Peripheral neuropathy, Seizure disorder Endocrine/Autoimmune: Type 2 diabetes GI: GERD, Ulcers, Chronic diarrhea, 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 : Incontinence HEENT: None Psych: Depression, Anxiety, Bipolar disorder, Schizophrenia, ADD/ADHD, Post traumatic stress disorder, Obsessive compulsive disorder Musculoskeletal: Osteoarthritis, Osteoporosis Derm: Other drug resistant infections - Past Surgical History Past Surgical History: Yes General: Cholecystectomy /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: Tubal ligation, Other HEENT: Tonsil/Adenoidectomy - Present Medications Home Medications: Ambulatory Orders Medication Instructions Recorded Confirmed Insulin Regular, Human [Humulin R 0.12 ml SUBQ BID 10/31/16 05/26/17 U-500] Zonisamide [Zonegran] 200 mg PO BID 12/02/16 05/26/17 Metformin HCl 1,000 mg PO BIDWM 02/15/17 05/26/17 acetaZOLAMIDE [Acetazolamide] 500 mg PO BID 02/15/17 05/26/17 Atorvastatin Calcium 40 mg PO QPM 05/26/17 05/26/17 Baclofen 20 mg PO TID PRN 05/26/17 05/26/17 Esomeprazole Magnesium 40 mg PO QDAC 05/26/17 05/26/17 Insulin Aspart [Novolog Flexpen] 1 - 10 units SUBQ TIDWM 05/26/17 05/26/17 Azithromycin [Zithromax Tri-Pee] 500 mg PO DAILY #5 tablet 05/28/17 Enoxaparin [Lovenox] 30 mg SUBQ Q12H #20 syringe 05/31/17 Oxycodone HCl/Acetaminophen 1 - 2 tab PO Q4H PRN #15 tablet 05/31/17 [Percocet 5-325 mg Tablet] - Allergies Allergies/Adverse Reactions: Allergies Allergy/AdvReac Type Severity Reaction Status Date / Time Latex, Natural Rubber Allergy Mild Rash Verified 05/24/17 20:51 acetaminophen [From Vicodin] Allergy Hives Verified 05/24/17 20:51 hydrocodone bitartrate * Allergy Hives Verified 05/24/17 20:51 [From Vicodin] Penicillins Allergy Rash Verified 05/24/17 20:51 tramadol Allergy Rash Verified 05/24/17 20:51 adhesive AdvReac Intermediate chemical Verified 05/24/17 20:51 logan haloperidol [From Haldol] AdvReac Unknown Hallucinati Verified 05/24/17 20:51 ons iodine AdvReac Unknown Rash Verified 05/24/17 20:51 latex AdvReac Unknown Respiratory Verified 05/24/17 20:51 lamotrigine [From Lamictal] AdvReac Rash Verified 05/24/17 20:51 varenicline tartrate * AdvReac Hallucinati Verified 05/24/17 20:51 [From Chantix] ons steriods AdvReac Intermediate Unknown Uncoded 05/24/17 20:51 - Social History Does the pt smoke?: Yes Smoking Status: Current every day smoker Does the pt drink ETOH?: Yes Does the pt have substance abuse?: Yes - Immunizations Immunizations are current?: Yes - POLST Patient has POLST: No POLST Status: Full Code PD ED PE NORMAL - Vitals Vital signs reviewed: Yes - General General: Alert and oriented X 3, No acute distress - HEENT HEENT: Ears normal, Moist mucous membranes, Pharynx benign - Neck Neck: Supple, no meningeal sign, No adenopathy - Cardiac Cardiac: RRR - Respiratory Respiratory: No respiratory distress, Other (diminished BS bilaterally. wheezing present) - Abdomen Abdomen: Soft, Non tender, Non distended - Back Back: No CVA TTP - Derm Derm: Warm and dry - Extremities Extremities: Other (LLE - in a short leg cast. NVI) - Neuro Neuro: Alert and oriented X 3 - Psych Psych: Normal mood, Normal affect Results - Vitals Vitals: Vital Signs - 24 hr 06/05/17 06/05/17 06/05/17 11:55 13:04 13:51 Temperature 36.1 C L 36.5 C Heart Rate 83 81 82 Respiratory 14 20 14 Rate Blood Pressure 157/94 H 141/90 H O2 Saturation 97 100 06/05/17 15:12 Temperature 35.5 C L Heart Rate 81 Respiratory 16 Rate Blood Pressure 131/89 H O2 Saturation 97 Oxygen O2 Source Room air Oxygen Flow Rate 2 - EKG (time done) 1147 Rate: Rate (enter#) (86) Rhythm: NSR [place]: Normal Intervals: Normal DC QRS: Normal Ischemia: Normal ST segments - Labs Labs: Laboratory Tests 06/05/17 06/05/17 12:01 12:33 POC Whole Bld Glucose 286 H Urine Color YELLOW Urine Clarity CLEAR Urine pH 8.0 H Ur Specific [place] 1.010 Urine Protein NEGATIVE Urine Glucose (UA) >=1000 H Urine Ketones NEGATIVE Urine Occult Blood NEGATIVE Urine Nitrite NEGATIVE Urine Bilirubin NEGATIVE Urine Urobilinogen 0.2 (NORMAL) Ur Leukocyte Esterase NEGATIVE Ur Microscopic Review NOT INDICATED Urine Culture Comments NOT INDICATED - Rads (name of study) cxr Radiology: Prelim report reviewed, EMP read contemporaneously, See rad report ( no acute disease) PD MEDICAL DECISION MAKING - ED course Complexity details: reviewed results, re-evaluated patient, considered differential, d/w patient ED course: Patient is a 37-year-old female who presents to the emergency department concerned about recurrent pneumonia. No evidence of pneumonia on chest x-ray. She is well-appearing, nontoxic. No hypoxia. Feels better after nebulizer treatment. Cannot take steroids. We will have her follow-up with her doctor for further evaluation and care. No evidence of DVT or pulmonary embolus clinically. She is on Lovenox but did not take it this morning, therefore the Lovenox injection was given here. Social work was also consulted to help arrange transportation for her upcoming surgery. Patient counseled regarding signs and symptoms for which I believe and urgent re-evaluation would be necessary. Patient with good understanding of and agreement to plan and is comfortable going home at this time This document was made in part using voice recognition software. While efforts are made to proofread this document, sound alike and grammatical errors may occur. Departure - Departure Disposition: Home, Self Care Clinical Impression: URI (upper respiratory infection) Qualifiers: URI type: unspecified viral URI Qualified Code(s): J06.9 - Acute upper respiratory infection, unspecified Condition: Good Instructions: ED Viral Syndrome Follow-Up: Lorna Mulligan MD [Primary Care Provider] - Within 1 week Comments: Make sure to follow-up with [facility] for your surgery. You can follow-up with your doctor for further evaluation and care of your other symptoms. Discharge Date/Time: 06/05/17 15:48
--- NOTE | 2017-06-05 14:50 | XRAY Report ---
EXAM: CHEST RADIOGRAPHY EXAM DATE: 06/05/2017 02:32 PM. CLINICAL HISTORY: Cough. COMPARISON: None. TECHNIQUE: 2 views. FINDINGS: Lungs/Pleura: No focal opacities evident. No pleural effusion. No pneumothorax. Normal volumes. Mediastinum: Heart and mediastinal contours are unremarkable. Other: None. IMPRESSION: Normal 2-view chest radiography. [facility] Referring Provider Line: [phone] SITE ID: [id number]
--- NOTE | 2017-06-05 14:50 | XRAY Preliminary Report ---
Exam: XR CHEST 2 VIEW X-RAY IMPRESSION: Normal 2-view chest radiography. [facility] SITE ID: [id number]
[2017-06-05 15:13] VITALS: BP 131/89
== END 2017-06-05 15:48 | disposition home or self-care (01) ==
LOC: EDBD → EDUNIT# → ED 11:21
DX: J06.9 Acute upper respiratory infection, unspecified (principal); I10 Essential (primary) hypertension; E78.00 Pure hypercholesterolemia, unspecified; E11.51 Type 2 diabetes mellitus with diabetic peripheral angiopathy without gangrene; F17.200 Nicotine dependence, unspecified, uncomplicated; Z79.4 Long term (current) use of insulin; Z79.01 Long term (current) use of anticoagulants
CPT/HCPCS: 71046; 81003; 93005; 94640; 94664; 96372; 99284; J1650; J7613; 81001; 87086

== ENCOUNTER 2017-06-09 14:13 | Outpatient (CLI) | payer MEDICARE, MEDICAID | END 2017-06-09 14:14 | disposition critical access hospital (66) | LOC: EMS 14:13 | PROVIDERS: ATTEND Surgery | DX: M79.605 Pain in left leg (principal); M79.604 Pain in right leg | CPT/HCPCS: A0425; A0429 ==

== ENCOUNTER 2017-06-09 14:17 | Emergency (ER) | payer MEDICARE, MEDICAID ==
[2017-06-09 14:54] LABS: BILIRUBIN,URINE NEGATIVE (NEGATIVE); GLUCOSE, URINE (UA) NEGATIVE (NEGATIVE); KETONES,URINE (UA) NEGATIVE (NEGATIVE); LEUKOCYTE ESTERASE, URINE NEGATIVE (NEGATIVE); NITRITE,URINE NEGATIVE (NEGATIVE); OCCULT BLOOD,URINE NEGATIVE (NEGATIVE); PROTEIN,URINE NEGATIVE (NEGATIVE); UROBILINOGEN,URINE 0.2 (NORMAL) E.U./dL (NORMAL)
[2017-06-09 14:57] LABS: CLARITY,URINE CLEAR (CLEAR)
[2017-06-09] MEDS ORDERED: LIDOCAINE PATCH 5% TOP STA (16:08)
--- NOTE | 2017-06-09 16:11 | ED Physician Documentation ---
History of Present Illness - Stated complaint Stated Complaint: BILAT LEG PX - Chief complaint Chief Complaint: Trauma Ext - Additonal information Additional information: hx from pt 37 f HTN NLD DM seizures psych asthma COPD recently dx [place] [facility] [place] splint on pending surgery to ER today with numerous concerns 1) her leg is swollen and her ortho said for her to come to ED to get a doppler 2) fever chills cough NV - seen for similar sx few days ago now worse 3) L flank to LUQ pain denies preg s/p tubal and uterine ablation Review of Systems Constitutional: reports: Fever, Chills, Myalgias, Fatigue Throat: denies: Sore throat Cardiac: denies: Chest pain / pressure Respiratory: reports: Dyspnea, Cough GI: reports: Abdominal Pain, Vomiting, Diarrhea : denies: Hematuria Musculoskeletal: reports: Back pain (L flank), Extremity pain, Extremity swelling Endocrine: denies: Easy bruising / bleeding Immunocompromised: denies: Immunocompromised PD PAST MEDICAL HISTORY - Past Medical History Cardiovascular: Hypertension, High cholesterol, Other Respiratory: Asthma, COPD, Sleep apnea, CPAP use Neuro: Headache/migraine, Peripheral neuropathy, Seizure disorder Endocrine/Autoimmune: Type 2 diabetes GI: GERD, Ulcers, Chronic diarrhea, 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 : Incontinence HEENT: None Psych: Depression, Anxiety, Bipolar disorder, Schizophrenia, ADD/ADHD, Post traumatic stress disorder, Obsessive compulsive disorder Musculoskeletal: Osteoarthritis, Osteoporosis Derm: Other drug resistant infections Other Past Medical History: FX left foot 05/2017 - Past Surgical History Past Surgical History: Yes General: 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, Other HEENT: Tonsil/Adenoidectomy - Present Medications Home Medications: Ambulatory Orders Medication Instructions Recorded Confirmed Insulin Regular, Human [Humulin R 0.12 ml SUBQ BID 10/31/16 06/09/17 U-500] Zonisamide [Zonegran] 200 mg PO BID 12/02/16 06/09/17 Metformin HCl 1,000 mg PO BIDWM 02/15/17 06/09/17 acetaZOLAMIDE [Acetazolamide] 500 mg PO BID 02/15/17 06/09/17 Atorvastatin Calcium 40 mg PO QPM 05/26/17 06/09/17 Baclofen 20 mg PO TID PRN 05/26/17 06/09/17 Esomeprazole Magnesium 40 mg PO QDAC 05/26/17 06/09/17 Insulin Aspart [Novolog Flexpen] 1 - 10 units SUBQ TIDWM 05/26/17 06/09/17 Azithromycin [Zithromax Tri-Pee] 500 mg PO DAILY #5 tablet 05/28/17 06/09/17 Enoxaparin [Lovenox] 30 mg SUBQ Q12H #20 syringe 05/31/17 06/09/17 Oxycodone HCl/Acetaminophen 1 - 2 tab PO Q4H PRN #15 tablet 05/31/17 06/09/17 [Percocet 5-325 mg Tablet] Benzonatate [Tessalon] 100 mg PO TID PRN #20 capsule 06/09/17 - Allergies Allergies/Adverse Reactions: Allergies Allergy/AdvReac Type Severity Reaction Status Date / Time Latex, Natural Rubber Allergy Mild Rash Verified 05/24/17 20:51 acetaminophen [From Vicodin] Allergy Hives Verified 05/24/17 20:51 hydrocodone bitartrate * Allergy Hives Verified 05/24/17 20:51 [From Vicodin] Penicillins Allergy Rash Verified 05/24/17 20:51 tramadol Allergy Rash Verified 05/24/17 20:51 adhesive AdvReac Intermediate chemical Verified 05/24/17 20:51 logan haloperidol [From Haldol] AdvReac Unknown Hallucinati Verified 05/24/17 20:51 ons iodine AdvReac Unknown Rash Verified 05/24/17 20:51 latex AdvReac Unknown Respiratory Verified 05/24/17 20:51 lamotrigine [From Lamictal] AdvReac Rash Verified 05/24/17 20:51 varenicline tartrate * AdvReac Hallucinati Verified 05/24/17 20:51 [From Chantix] ons steriods AdvReac Intermediate Unknown Uncoded 05/24/17 20:51 - Social History Does the pt smoke?: Yes Smoking Status: Current every day smoker Does the pt drink ETOH?: Yes Does the pt have substance abuse?: Yes - Immunizations Immunizations are current?: Yes - POLST Patient has POLST: No POLST Status: Full Code PD ED PE NORMAL - Vitals Vital signs reviewed: Yes - HEENT HEENT: Atraumatic - Neck Neck: Supple, no meningeal sign - Cardiac Cardiac: RRR - Respiratory Respiratory: No respiratory distress, Clear bilaterally - Abdomen Abdomen: Soft, Other (TT LUQ and epigastric region s peritoneal signs) - Back Back: No: No CVA TTP (+ L CVA TTP) - Derm Derm: Other (no shingles rash) - Extremities Extremities: Other (in a shor leg splint, calf TTP no cord apprecizted MSV intact) - Neuro Neuro: Alert and oriented X 3, No sensory deficit Results - Vitals Vitals: Vital Signs - 24 hr 06/09/17 06/09/17 14:27 18:07 Temperature 36.5 C Heart Rate 108 H 87 Respiratory 24 19 Rate Blood Pressure 126/76 113/68 O2 Saturation 97 98 Oxygen O2 Source Room air - Labs Labs: Laboratory Tests 06/09/17 06/09/17 06/09/17 14:35 16:20 16:20 WBC 8.7 RBC 5.06 Hgb 15.1 Hct 44.9 MCV 88.8 MCH 29.8 MCHC 33.5 RDW 14.9 Plt Count 304 MPV 6.9 L Neut # 5.3 Lymph # 2.7 [place] # 0.6 Eos # 0.0 Baso # 0.1 Absolute Nucleated RBC 0.01 Nucleated RBC % 0.1 Sodium 135 Potassium 3.5 Chloride 102 Carbon Dioxide 22 Anion Gap 11.0 BUN 8 Creatinine 0.5 Estimated GFR (MDRD) 140 Glucose 111 H Calcium 9.3 Total Bilirubin 0.2 AST 11 ALT 23 Alkaline Phosphatase 65 Total Protein 8.1 Albumin 4.7 Globulin 3.4 Albumin/Globulin Ratio 1.4 Lipase 37 Urine Color YELLOW Urine Clarity CLEAR Urine pH 7.0 Ur Specific [place] 1.010 Urine Protein NEGATIVE Urine Glucose (UA) NEGATIVE Urine Ketones NEGATIVE Urine Occult Blood NEGATIVE Urine Nitrite NEGATIVE Urine Bilirubin NEGATIVE Urine Urobilinogen 0.2 (NORMAL) Ur Leukocyte Esterase NEGATIVE Ur Microscopic Review NOT INDICATED Urine Culture Comments NOT INDICATED Influenza A (Rapid) Influenza B (Rapid) Influenza Types A,B Ag 06/09/17 18:20 WBC RBC Hgb Hct MCV MCH MCHC RDW Plt Count MPV Neut # Lymph # [place] # Eos # Baso # Absolute Nucleated RBC Nucleated RBC % Sodium Potassium Chloride Carbon Dioxide Anion Gap BUN Creatinine Estimated GFR (MDRD) Glucose Calcium Total Bilirubin AST ALT Alkaline Phosphatase Total Protein Albumin Globulin Albumin/Globulin Ratio Lipase Urine Color Urine Clarity Urine pH Ur Specific [place] Urine Protein Urine Glucose (UA) Urine Ketones Urine Occult Blood Urine Nitrite Urine Bilirubin Urine Urobilinogen Ur Leukocyte Esterase Ur Microscopic Review Urine Culture Comments Influenza A (Rapid) Negative Influenza B (Rapid) Negative Influenza Types A,B Ag - PD MEDICAL DECISION MAKING - ED course ED course: L flank to LQU pain - no trauma no shingles, neg UA so doubt infection or stone , prior CT AP did not show diverticulosis so doubt itits - doubt acute intra- abdominal porcess - perhaps sore for coughing cough and SOA - unlikely to develop DVT PE while on BID lovenox but checked CXR and doppler LE - if no DVT and on lovenox do not feel CTA chest merited - doppler neg - CXR neg - flu neg - will tx symtomatically Departure - Departure Clinical Impression: Leg pain, left, Viral syndrome, Abdominal wall pain Condition: Good Instructions: ED Viral Syndrome Prescriptions: Benzonatate [Tessalon] 100 mg PO TID PRN #20 capsule PRN Reason: to ease cough Comments: The ultrasound of your leg does not show a blood clot - keep wearing the splint - keep taking the lovenox. The chest xray was fine as well - no pneumonia. And your labs and urine test are fine - normal liver function kidney function pancreas function and no urine infection or blood to suggest a kidney stone Rest and drink plenty of fluids. Continue your usual medications I prescribed tessalon to ease your cough We will call you if the influenza swab is positive
[2017-06-09 16:27] LABS: BASOPHILS # (AUTO) 0.1 10^3/uL (0.0-0.1); BASOPHILS % (AUTO) 1.5 %; HGB - HEMOGLOBIN 15.1 g/dL (12.0-16.0); LYMPHOCYTES # (AUTO) 2.7 10^3/uL (1.5-3.5); LYMPHOCYTES % (AUTO) 30.7 %; MEAN CORPUSCULAR HEMOGLOBIN 29.8 pg (27.0-31.0); MEAN CORPUSCULAR HGB CONC 33.5 g/dL (32.0-36.0); MEAN CORPUSCULAR VOLUME 88.8 fL (81.0-99.0); MEAN PLATELET VOLUME 6.9 fL (7.9-10.8); MONOCYTES # (AUTO) 0.6 10^3/uL (0.0-1.0); NEUTROPHILS # (AUTO) 5.3 10^3/uL (1.5-6.6); NEUTROPHILS % (AUTO) 60.8 %; PLT - PLATELET COUNT 304 10^3/uL (130-450); RED BLOOD COUNT 5.06 10^6/uL (4.20-5.40); RED CELL DISTRIBUTION WIDTH 14.9 % (12.0-15.0); WHITE BLOOD COUNT 8.7 x10^3/uL (4.8-10.8)
[2017-06-09 16:40] LABS: ALBUMIN 4.7 g/dL (3.2-5.5); ALBUMIN/GLOBULIN RATIO 1.4 (1.0-2.2); BILIRUBIN,TOTAL 0.2 mg/dL (0.2-1.0); CALCIUM 9.3 mg/dL (8.5-10.3); CREATININE 0.5 mg/dL (0.4-1.0); TOTAL PROTEIN 8.1 g/dL (6.7-8.2)
--- NOTE | 2017-06-09 17:16 | Ultrasound Report ---
EXAM: LEFT LOWER EXTREMITY VENOUS ULTRASOUND EXAM DATE: 06/09/2017 05:08 PM. CLINICAL HISTORY: Leg in cast painful and swollen. Left leg swollen and painful. COMPARISON: None. TECHNIQUE: Real-time sonographic vascular imaging was performed by the first cook through the lower extremity utilizing both color-flow and Doppler spectral analysis. Multiple digital sales representative static ambreen ges were saved for review. FINDINGS: Common Femoral Vein (CFV): Normal. CFV-GSV Junction: Normal. Profunda Femoral Vein (PFV): Normal. Femoral Vein (FV) Prox: Normal. Femoral Vein (FV) Mid: Normal. Femoral Vein (FV) Dist: Normal. Popliteal Vein: Normal. Posterior Tibial Veins: Normal. Peroneal Veins: Normal. IMPRESSION: No evidence for deep venous thrombosis. [facility] Referring Provider Line: [phone] SITE ID: [id number]
--- NOTE | 2017-06-09 18:02 | XRAY Preliminary Report ---
Exam: XR CHEST 2 VIEW X-RAY IMPRESSION: Normal 2-view chest radiography. [facility] SITE ID: [id number]
--- NOTE | 2017-06-09 18:05 | XRAY Report ---
EXAM: CHEST RADIOGRAPHY EXAM DATE: 06/09/2017 05:33 PM. CLINICAL HISTORY: Fever cough. COMPARISON: 06/05/2017. TECHNIQUE: 2 views. FINDINGS: Lungs/Pleura: No focal opacities evident. No pleural effusion. No pneumothorax. Normal volumes. Mediastinum: Heart and mediastinal contours are unremarkable. Other: None. IMPRESSION: Normal 2-view chest radiography. [facility] Referring Provider Line: [phone] SITE ID: [id number]
[2017-06-09 18:07] VITALS: BP 113/68
== END 2017-06-09 18:56 | disposition home or self-care (01) ==
LOC: EDUNIT# → ED 14:17
DX: M79.605 Pain in left leg (principal); B34.9 Viral infection, unspecified; R10.32 Left lower quadrant pain; I10 Essential (primary) hypertension; E11.9 Type 2 diabetes mellitus without complications; Z79.4 Long term (current) use of insulin; J44.9 Chronic obstructive pulmonary disease, unspecified; E78.00 Pure hypercholesterolemia, unspecified; G47.30 Sleep apnea, unspecified; K21.9 Gastro-esophageal reflux disease without esophagitis; M19.90 Unspecified osteoarthritis, unspecified site; M81.0 Age-related osteoporosis without current pathological fracture; Z87.11 Personal history of peptic ulcer disease; F17.200 Nicotine dependence, unspecified, uncomplicated
CPT/HCPCS: 36415; 71046; 80053; 81003; 83690; 85025; 87275; 87276; 93971; 99283; A9270; 81001; 87086

== ENCOUNTER 2017-08-18 08:19 | Outpatient (CLI) | payer MEDICARE, MEDICAID, OTHER ==
--- NOTE | 2017-08-18 18:45 | MRI Report ---
EXAM: LEFT KNEE MRI WITHOUT CONTRAST EXAM DATE: 08/18/2017 08:58 AM. CLINICAL HISTORY: Left knee pain, possible loose body. COMPARISON: Left knee 4 views 05/28/2017. TECHNIQUE: Multiplanar, multisequence T1-weighted and fluid-sensitive sequences of the knee without c ontrast. Other: None. FINDINGS: Bones: Mild spurring medial femoral condyle, medial tibial plateau, lateral femoral condyle and later al tibial plateau without change from the radiographs 05/28/2017.. Articular Cartilage: Moderate chondromalacia trochlear groove severe chondromalacia posterior aspect lateral femoral condyle. Medial Meniscus: The medial meniscus is intact. Lateral Meniscus: Possible small free edge tear lateral meniscus body. Para meniscal cyst adjacent to the inferior aspect lateral meniscus body 7 mm in diameter and 1.4 cm in AP dimension. Cruciate Ligaments: The anterior and posterior cruciate ligaments are intact. Collateral Ligaments: The medial collateral and lateral collateral ligamentous structures are intact. Tendons: The quadriceps, patellar, semimembranosus, and popliteus tendons are unremarkable. Musculature: No edema or fatty atrophy. Other: Small fluid collection lateral patellar recess. No popliteal cyst. No loose bodies. The media l and lateral retinacula are intact. The subcutaneous tissues and fat pads are unremarkable. IMPRESSION: 1. Negative for medial meniscus tear and possible small free edge tear lateral meniscus body. 2. 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 3. Parameniscal cyst lateral meniscus body 7 mm in diameter and 1.4 cm in AP dimension. [facility] MUSCULOSKELETAL RADIOLOGY SECTION Referring Provider Line: [phone] SITE ID: [id number]
== END 2017-08-18 08:20 | disposition home or self-care (01) ==
LOC: DI 08:19
PROVIDERS: ATTEND Orthopaedic Surgery
DX: M94.262 Chondromalacia, left knee (principal); M25.862 Other specified joint disorders, left knee

== ENCOUNTER 2017-10-13 20:55 | Emergency (ER) | payer MEDICARE, MEDICAID ==
[2017-10-13] MEDS ORDERED: KETOROLAC 60 MG/2 ML VIAL IVP STA (21:10)
[2017-10-13] MEDS ORDERED: diphenhydrAMINE INJ 50 MG/ML VIAL IVP STA (21:10)
[2017-10-13] MEDS ORDERED: SODIUM CHLORIDE 0.9% 1,000 ML IV ONE (21:10)
[2017-10-13] MEDS ORDERED: METOCLOPRAMIDE 10 MG/2 ML VIAL IVP STA (21:10)
[2017-10-13 21:31] VITALS: BP 106/91
[2017-10-13 22:10] LABS: BILIRUBIN,URINE NEGATIVE (NEGATIVE); GLUCOSE, URINE (UA) NEGATIVE (NEGATIVE); KETONES,URINE (UA) NEGATIVE (NEGATIVE); LEUKOCYTE ESTERASE, URINE NEGATIVE (NEGATIVE); NITRITE,URINE NEGATIVE (NEGATIVE); OCCULT BLOOD,URINE NEGATIVE (NEGATIVE); PH,URINE 6.5 PH (5.0-7.5); PROTEIN,URINE NEGATIVE (NEGATIVE); UROBILINOGEN,URINE 0.2 (NORMAL) E.U./dL (NORMAL)
--- NOTE | 2017-10-13 22:18 | ED Physician Documentation ---
PD HPI HEADACHE - Stated complaint Stated Complaint: HD/NECK PX - Chief complaint Chief Complaint: Neuro - History obtained from History obtained from: Patient - History of Present Illness Timing - onset: How many weeks ago (2) Timing - onset during: Rest Timing - details: Gradual onset, Still present Location: Global Associated symptoms: Fever, Nausea, Weakness. No: Stiff neck, Vomiting, Syncope , Seizure Similar symptoms before: Work up / diagnostics, Treatment Recently seen: Not recently seen - Additional information Additional information: Patient is a 37 year old female with multiple co-morbidities including Idiopathic intracranial hypertension who is presenting to the emergency department for headaches. Patient states that her headache has been going on for the last 2 weeks. Patient states that she has follow up at [facility] for an LP. Patient also reports that she has some flank pain and foul smelling urine. Review of Systems Constitutional: denies: Fever, Chills Eyes: reports: Photophobia Ears: reports: Reviewed and negative Nose: denies: Congestion, Sinus pressure / pain Throat: reports: Reviewed and negative GI: reports: Nausea. denies: Vomiting : reports: Dysuria Skin: denies: Rash, Lesions Musculoskeletal: reports: Back pain Neurologic: reports: Headache. 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: None : Incontinence HEENT: None Psych: Depression, Anxiety, Bipolar disorder, Schizophrenia, ADD/ADHD, Post traumatic stress disorder, Obsessive compulsive disorder Musculoskeletal: Osteoarthritis, Osteoporosis Derm: Other drug resistant infections - Past Surgical History Past Surgical History: Yes General: Cholecystectomy /DICTAPHONE TRANSCRIBER: Tubal ligation, Other HEENT: Tonsil/Adenoidectomy - Present Medications Home Medications: Ambulatory Orders Medication Instructions Recorded Confirmed Insulin Regular, Human [Humulin R 0.12 ml SUBQ BID 10/31/16 06/09/17 U-500] Zonisamide [Zonegran] 200 mg PO BID 12/02/16 06/09/17 Metformin HCl 1,000 mg PO BIDWM 02/15/17 06/09/17 acetaZOLAMIDE [Acetazolamide] 500 mg PO BID 02/15/17 06/09/17 Atorvastatin Calcium 40 mg PO QPM 05/26/17 06/09/17 Baclofen 20 mg PO TID PRN 05/26/17 06/09/17 Esomeprazole Magnesium 40 mg PO QDAC 05/26/17 06/09/17 Insulin Aspart [Novolog Flexpen] 1 - 10 units SUBQ TIDWM 05/26/17 06/09/17 Azithromycin [Zithromax Tri-Pee] 500 mg PO DAILY #5 tablet 05/28/17 06/09/17 Enoxaparin [Lovenox] 30 mg SUBQ Q12H #20 syringe 05/31/17 06/09/17 Oxycodone HCl/Acetaminophen 1 - 2 tab PO Q4H PRN #15 tablet 05/31/17 06/09/17 [Percocet 5-325 mg Tablet] Benzonatate [Tessalon] 100 mg PO TID PRN #20 capsule 06/09/17 - Allergies Allergies/Adverse Reactions: Allergies Allergy/AdvReac Type Severity Reaction Status Date / Time Latex, Natural Rubber Allergy Mild Rash Verified 05/24/17 20:51 acetaminophen [From Vicodin] Allergy Hives Verified 05/24/17 20:51 hydrocodone bitartrate * Allergy Hives Verified 05/24/17 20:51 [From Vicodin] Penicillins Allergy Rash Verified 05/24/17 20:51 tramadol Allergy Rash Verified 05/24/17 20:51 adhesive AdvReac Intermediate chemical Verified 05/24/17 20:51 logan haloperidol [From Haldol] AdvReac Unknown Hallucinati Verified 05/24/17 20:51 ons iodine AdvReac Unknown Rash Verified 05/24/17 20:51 latex AdvReac Unknown Respiratory Verified 05/24/17 20:51 lamotrigine [From Lamictal] AdvReac Rash Verified 05/24/17 20:51 varenicline tartrate * AdvReac Hallucinati Verified 05/24/17 20:51 [From Chantix] ons steriods AdvReac Intermediate Unknown Uncoded 05/24/17 20:51 - Social History Does the pt smoke?: Yes Smoking Status: Current every day smoker Does the pt drink ETOH?: Yes Does the pt have substance abuse?: Yes - Immunizations Immunizations are current?: Yes - POLST Patient has POLST: No POLST Status: Full Code PD ED PE NORMAL - Vitals Vital signs reviewed: Yes - General General: Alert and oriented X 3, No acute distress - HEENT HEENT: Atraumatic - Neck Neck: Supple, no meningeal sign - Cardiac Cardiac: RRR - Respiratory Respiratory: No respiratory distress - Abdomen Abdomen: Non distended - Derm Derm: Normal color, Warm and dry - Extremities Extremities: No deformity - Neuro Neuro: Alert and oriented X 3, No motor deficit, Normal speech Eye Opening: Spontaneous Motor: Obeys Commands Verbal: Oriented GCS Score: 15 Results - Vitals Vitals: Vital Signs - 24 hr 10/13/17 20:58 Temperature 36.4 C L Heart Rate 92 Respiratory 18 Rate Blood Pressure 106/91 H O2 Saturation 97 Oxygen O2 Source Room air - Labs Labs: Laboratory Tests 10/13/17 21:40 Urine Color YELLOW Urine Clarity CLEAR Urine pH 6.5 Ur Specific [place] 1.010 Urine Protein NEGATIVE Urine Glucose (UA) NEGATIVE Urine Ketones NEGATIVE Urine Occult Blood NEGATIVE Urine Nitrite NEGATIVE Urine Bilirubin NEGATIVE Urine Urobilinogen 0.2 (NORMAL) Ur Leukocyte Esterase NEGATIVE Ur Microscopic Review NOT INDICATED Urine Culture Comments NOT INDICATED PD MEDICAL DECISION MAKING - ED course Complexity details: reviewed old records, reviewed results, re-evaluated patient , considered differential, d/w patient ED course: Patient was seen and examined at bedside. Iv access was gained and patient was treated with ns bolus, toradol, reglan and benadryl. Patient's urine was collected and was within normal limits. Upon re-evaluation patient reports that her headache had resolved. Patient required no further work up and was stable for discharge with outpatient follow up. Departure - Departure Disposition: 01 Home, Self Care Clinical Impression: Headache Condition: Good Instructions: ED Cephalgia Unspecified Follow-Up: primary,care provider [Other] - Tomorrow Comments: Your diagnostics today were within normal limits. there was no sign of acute infection. It is important that you follow up with [facility] to schedule your LP as that will be the only thing that ultimately helps the situation. You may return to the emergency department at any time for new, worsening or uncontrollable symptoms. Discharge Date/Time: 10/13/17 22:34
[2017-10-13 22:19] LABS: CLARITY,URINE CLEAR (CLEAR)
== END 2017-10-13 22:34 | disposition home or self-care (01) ==
LOC: ED 20:55
DX: R51 Headache (principal); I10 Essential (primary) hypertension; E78.00 Pure hypercholesterolemia, unspecified; J44.9 Chronic obstructive pulmonary disease, unspecified; G47.30 Sleep apnea, unspecified; E11.9 Type 2 diabetes mellitus without complications; Z79.4 Long term (current) use of insulin; K21.9 Gastro-esophageal reflux disease without esophagitis; Z87.11 Personal history of peptic ulcer disease; M19.90 Unspecified osteoarthritis, unspecified site; F17.200 Nicotine dependence, unspecified, uncomplicated
CPT/HCPCS: 81003; 96361; 96374; 96375; 99283; 99284; J1200; J2765; 81001; 87086

== ENCOUNTER 2017-10-24 19:09 | Emergency (ER) | payer MEDICARE, MEDICAID ==
--- NOTE | 2017-10-24 19:23 | ED Physician Documentation ---
PD HPI NVD - Stated complaint Stated Complaint: VOMITTING/DIARRHEA - Chief complaint Chief Complaint: Abd Pain - History obtained from History obtained from: Patient - History of Present Illness Timing - onset: How many days ago (5-6) Timing - duration: Days (5-6 days of nausea with vomiting and diarrhea. States vomiting a few times daily. Diarrhea 5-6 times daily and is watery/brown, without formed stool nor melena/blood. Left lower abd cramps intermittently, mostly prior to diarrheal movement. No consistent abd pain.) Timing - details: Gradual onset, Still present, Waxing and waning Associated symptoms: Abdominal pain (left lower crampy). No: Fever, Chest pain , Hematemesis, Melena Contributing factors: No: Sick contact, Bad food, Travel, Recent antibiotics Improved by: No: Vomiting Worsened by: Eating Similar symptoms before: Diagnosis (has had headache with the nausea and vomiting due to migraines/intracranial HTN. Has not had the vomiting and diarrhea in the past.) Review of Systems Constitutional: reports: Myalgias. denies: Fever, Chills Eyes: denies: Loss of vision, Decreased vision Nose: denies: Rhinorrhea / runny nose, Congestion Throat: denies: Sore throat Respiratory: reports: Cough (baseline symptoms per patient), Wheezing (common for her and ran out of inhaler recently.) GI: reports: Abdominal Pain, Nausea, Vomiting, Diarrhea. denies: Abdominal Swelling, Constipation : denies: Dysuria, Frequency, Discharge, Vaginal bleeding Skin: denies: Rash Neurologic: reports: Generalized weakness, Headache. 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 : Incontinence HEENT: None Psych: Depression, Anxiety, Bipolar disorder, Schizophrenia, ADD/ADHD, Post traumatic stress disorder, Obsessive compulsive disorder Musculoskeletal: Osteoarthritis, Osteoporosis Derm: Other drug resistant infections - Past Surgical History Past Surgical History: Yes General: Cholecystectomy /GAS METER PROVER: Tubal ligation, Other HEENT: Tonsil/Adenoidectomy - Present Medications Home Medications: Ambulatory Orders Medication Instructions Recorded Confirmed Zonisamide [Zonegran] 200 mg PO BID 07/11/17 06/02/18 Metformin HCl 1,000 mg PO BIDWM 02/15/17 10/24/17 acetaZOLAMIDE [Acetazolamide] 500 mg PO BID 02/15/17 10/24/17 Atorvastatin Calcium 40 mg PO QPM 05/26/17 10/24/17 Esomeprazole Magnesium 40 mg PO QDAC 05/26/17 10/24/17 Loperamide [Imodium] 2 mg PO QID PRN #20 capsule 10/24/17 Ondansetron Odt [Zofran] 4 mg TL Q6H PRN #15 tablet 10/24/17 - Allergies Allergies/Adverse Reactions: Allergies Allergy/AdvReac Type Severity Reaction Status Date / Time Latex, Natural Rubber Allergy Mild Rash Verified 10/24/17 19:16 acetaminophen [From Vicodin] Allergy Hives Verified 10/24/17 19:16 hydrocodone bitartrate * Allergy Hives Verified 10/24/17 19:16 [From Vicodin] Penicillins Allergy Rash Verified 10/24/17 19:16 tramadol Allergy Rash Verified 10/24/17 19:16 adhesive AdvReac Intermediate chemical Verified 10/24/17 19:16 logan haloperidol [From Haldol] AdvReac Unknown Hallucinati Verified 10/24/17 19:16 ons iodine AdvReac Unknown Rash Verified 10/24/17 19:16 latex AdvReac Unknown Respiratory Verified 10/24/17 19:16 lamotrigine [From Lamictal] AdvReac Rash Verified 10/24/17 19:16 varenicline tartrate * AdvReac Hallucinati Verified 10/24/17 19:16 [From Chantix] ons steriods AdvReac Intermediate Unknown Uncoded 10/24/17 19:16 - Social History Does the pt smoke?: Yes Smoking Status: Current every day smoker Does the pt drink ETOH?: Yes Does the pt have substance abuse?: Yes - Immunizations Immunizations are current?: Yes - POLST Patient has POLST: No POLST Status: Full Code PD ED PE NORMAL - Vitals Vital signs reviewed: Yes - General General: Alert and oriented X 3, Well developed/nourished, Other (appears in pain and has light sensitivity) - HEENT HEENT: Atraumatic, Pharynx benign. No: Moist mucous membranes - Neck Neck: Supple, no meningeal sign, No adenopathy - Cardiac Cardiac: RRR, No murmur - Respiratory Respiratory: Other (no coarse sounds on lungs; there is some fine wheezing noted on expiration. ) - Abdomen Abdomen: Normal bowel sounds, Soft, Non distended, No organomegaly, Other ( tender LLQ area without guarding nor percussion tenderness. Rest of abd not tender. ) - Female Female : Deferred - Rectal Rectal: Deferred - Back Back: No CVA TTP - Derm Derm: Normal color - Extremities Extremities: No deformity, No tenderness to palpate, Normal ROM s pain, No edema , No calf tenderness / cord - Neuro Neuro: Alert and oriented X 3, No motor deficit, Normal speech Eye Opening: Spontaneous Motor: Obeys Commands Verbal: Oriented GCS Score: 15 - Psych Psych: Normal mood Results - Vitals Vitals: Vital Signs - 24 hr 10/24/17 10/24/17 10/24/17 19:11 20:02 21:41 Temperature 36.7 C Heart Rate 100 70 68 Respiratory 22 12 18 Rate Blood Pressure 124/93 H 122/84 H O2 Saturation 97 96 Oxygen O2 Source Nasal cannula Oxygen Flow Rate 2 - Labs Labs: Laboratory Tests 10/24/17 10/24/17 19:29 19:29 WBC 10.2 RBC 5.61 H Hgb 17.1 H Hct 49.7 H MCV 88.6 MCH 30.4 MCHC 34.4 RDW 14.0 Plt Count 278 MPV 7.6 L Neut # (Auto) 6.2 Lymph # (Auto) 3.0 [place] # (Auto) 0.8 Eos # (Auto) 0.1 Baso # (Auto) 0.1 Absolute Nucleated RBC 0.01 Nucleated RBC % 0.1 Sodium 134 L Potassium 3.2 L Chloride 100 L Carbon Dioxide 23 Anion Gap 11.0 BUN 5 L Creatinine 0.5 Estimated GFR (MDRD) 140 Glucose 339 H Calcium 8.7 Magnesium 2.0 Total Bilirubin 0.4 AST 23 ALT 21 Alkaline Phosphatase 67 Total Protein 7.7 Albumin 4.2 Globulin 3.5 Albumin/Globulin Ratio 1.2 Lipase 33 - Rads (name of study) chest Radiology: Prelim report reviewed, EMP read contemporaneously (no infiltrates) abd/pelvis CT Radiology: Prelim report reviewed (4x3 cm adnexal cystic mass with fluid, c/w complex cyst. Recommends U/S. No diverticulitis or other GI cause of the pain per se. ), EMP read contemporaneously pelvic U/S Radiology: Prelim report reviewed, Discussed with rads (complex cyst, recommends repeat U/S to resolution or possible other interventions if not improved for concern of other than cyst given the complex appearance. ), EMP read contemporaneously (as following up for CT, due to adnexal cystic mass on CT.) PD MEDICAL DECISION MAKING - ED course Complexity details: re-evaluated patient (headache and nasuea improved with migraine targeted meds and IV fluids. Some lower abd cramping still, but improved. Updated her on CT findings and to get U/S. ) Departure - Departure Disposition: 01 Home, Self Care Clinical Impression: Nausea vomiting and diarrhea, Lower abdominal pain, Complex cyst of left ovary Migraine headache Qualifiers: Migraine type: without aura Status migrainosus presence: with status migrainosus Intractability: not intractable Qualified Code(s): G43.001 - Migraine without aura, not intractable, with status migrainosus Condition: Stable Record reviewed to determine appropriate education?: Yes Instructions: ED Diet Vomiting Diarrhea Prescriptions: Loperamide [Imodium] 2 mg PO QID PRN #20 capsule PRN Reason: Diarrhea Ondansetron Odt [Zofran] 4 mg TL Q6H PRN #15 tablet PRN Reason: Nausea / Vomiting Comments: Frequent fluids. Use Zofran as needed for nausea. Imodium as needed for diarrhea. The CT and Ultrasound showed a moderate sized cyst on the left ovary. No signs of infectious cause of the diarrhea such as diverticulitis. Presume the diarrhea and cramps are related to viral illness or colon irritation, but it could be a bacterial infection instead. Bring a sample of your diarrhea to the lab if it continues the next 1-2 days to assess for these types of infection that might need specific treatment. For the cyst, your primary care may want to repeat the ultrasound in a month or so to see if it has resolved on its own. Follow up with your PMD in 2-3 days, call for an appt. Return if needed. Discharge Date/Time: 10/24/17 23:12
[2017-10-24] MEDS ORDERED: ONDANSETRON 4 MG/2 ML VIAL IVP STA (19:42)
[2017-10-24] MEDS ORDERED: diphenhydrAMINE INJ 50 MG/ML VIAL IVP STA (19:42)
[2017-10-24] MEDS ORDERED: SODIUM CHLORIDE 0.9% 1,000 ML IV ONE (19:42)
[2017-10-24] MEDS ORDERED: KETOROLAC 60 MG/2 ML VIAL IVP STA (19:42)
[2017-10-24] MEDS ORDERED: METOCLOPRAMIDE 10 MG/2 ML VIAL IVP STA (19:44)
[2017-10-24] MEDS ORDERED: ALBUTEROL NEB 2.5 MG/3 ML INH STA (19:44)
[2017-10-24 19:59] LABS: BASOPHILS # (AUTO) 0.1 10^3/uL (0.0-0.1); BASOPHILS % (AUTO) 0.9 %; EOSINOPHILS # (AUTO) 0.1 10^3/uL (0.0-0.7); EOSINOPHILS % (AUTO) 1.1 %; HGB - HEMOGLOBIN 17.1 g/dL (12.0-16.0); LYMPHOCYTES % (AUTO) 29.2 %; MEAN CORPUSCULAR HEMOGLOBIN 30.4 pg (27.0-31.0); MEAN CORPUSCULAR HGB CONC 34.4 g/dL (32.0-36.0); MEAN CORPUSCULAR VOLUME 88.6 fL (81.0-99.0); MEAN PLATELET VOLUME 7.6 fL (7.9-10.8); MONOCYTES # (AUTO) 0.8 10^3/uL (0.0-1.0); MONOCYTES % (AUTO) 7.8 %; NEUTROPHILS # (AUTO) 6.2 10^3/uL (1.5-6.6); PLT - PLATELET COUNT 278 10^3/uL (130-450); RED BLOOD COUNT 5.61 10^6/uL (4.20-5.40); WHITE BLOOD COUNT 10.2 x10^3/uL (4.8-10.8)
[2017-10-24 20:08] LABS: ALBUMIN 4.2 g/dL (3.2-5.5); ALBUMIN/GLOBULIN RATIO 1.2 (1.0-2.2); BILIRUBIN,TOTAL 0.4 mg/dL (0.2-1.0); CALCIUM 8.7 mg/dL (8.5-10.3); CREATININE 0.5 mg/dL (0.4-1.0); TOTAL PROTEIN 7.7 g/dL (6.7-8.2)
[2017-10-24] MEDS ORDERED: IOPAMIDOL-300 100 ML VIAL ONE (20:23)
--- NOTE | 2017-10-24 20:47 | XRAY Report ---
EXAM: CHEST RADIOGRAPHY EXAM DATE: 10/24/2017 08:28 PM. CLINICAL HISTORY: Cough and wheezing. COMPARISON: 06/09/2017. TECHNIQUE: 2 views. FINDINGS: Lungs/Pleura: No focal opacities evident. No pleural effusion. No pneumothorax. Normal volumes. Mediastinum: Heart and mediastinal contours are unremarkable. Other: No acute osseous abnormalities. Mild degenerative changes of the thoracic spine. IMPRESSION: 1. No acute disease in the chest. [facility] Referring Provider Line: [phone] SITE ID: [id number]
[2017-10-24] MEDS ORDERED: ACETAMINOPHEN 1,000 MG/100 ML 100 ML IV STA (21:01)
--- NOTE | 2017-10-24 21:01 | CT Report ---
EXAM: CT ABDOMEN AND PELVIS EXAM DATE: 10/24/2017 08:35 PM. CLINICAL HISTORY: Left lower abdomen pain and diarrhea for 5 days. Nausea and vomiting. COMPARISONS: 11/26/2015. TECHNIQUE: Routine helical CT imaging was performed through the abdomen and pelvis. IV contrast: None . Enteric contrast: No. Reconstructions: Coronal and sagittal. In accordance with CT protocol optimization, one or more of the following dose reduction techniques w ere utilized for this exam: automated exposure control, adjustment of mA and/or KV based on patient s ize, or use of iterative reconstructive technique. FINDINGS: Lung Bases: Unremarkable. Liver: Normal. No masses. Gallbladder/Bile Ducts: Cholecystectomy. No dilated ducts.. Spleen: Normal. Pancreas: Normal. Adrenal Glands: Normal. Kidneys: Small nonobstructing intrarenal stones again noted bilaterally with no ureteral stones or ob struction. Peritoneal Cavity/Bowel: Normal. No free fluid, free air or adenopathy. No masses or acute inflammato ry process. The appendix is well visualized and normal. Pelvic Organs: Large lobular left adnexal mass noted 5.2 x 4.4 x 4.4 cm, with cystic areas as well as high density areas, possibly complex cysts. No surrounding fat stranding. Tubal ligation clips. Uter us, right ovary, and bladder are unremarkable. Vasculature: No aneurysms or other significant abnormality. Bones: Stable mild levoscoliosis. Advanced degenerative changes at L4-L5. Other: None. IMPRESSION: 1. Large lobular left adnexal mass which appears to contain simple and complex cysts. No surrounding fat stranding to suggest torsion. Consider ultrasound evaluation. 2. Small nonobstructing bilateral intrarenal stones. [facility] Referring Provider Line: [phone] SITE ID: [id number]
[2017-10-24] MEDS ORDERED: HYDROmorphone 2 MG/ML VIAL IVP STA (21:06)
[2017-10-24] MEDS ORDERED: LORazepam 2 MG/ML VIAL IVP STA (21:13)
[2017-10-24 21:42] VITALS: BP 122/84
--- NOTE | 2017-10-24 23:20 | Ultrasound Preliminary Report ---
Exam: US PELVIC W/TRANSVAG+DOPPLER LTD IMPRESSION: 1. Ultrasound confirms a complex septated left ovarian cyst measuring 3.3 x 3.5 x 4.3 cm. Recommend s hort interval follow-up to document resolution. If findings persist, patient may benefit from obstetr ics and gynecology workup and management. If further imaging is necessary at that time, MRI with and without contrast is recommended. Both malignant and benign processes remain on the differential. 2. No free fluid. 3. Normal right ovary and adnexa. 4. No endometrial mass or polyp. Fundal cysts are noted. No uterine fibroids. [facility] The above findings were discussed with Rex Ridley by Dr. Ellen Abernathy at 23:18 hrs on 10/24/17. SITE ID: [id number]
--- NOTE | 2017-10-24 23:28 | Ultrasound Report ---
EXAM: PELVIC ULTRASOUND EXAM DATE: 10/24/2017 10:56 PM. CLINICAL HISTORY: Left abdominal pain. CT showing adnexal cyst/mass. COMPARISON: 10/24/2017. TECHNIQUE: Realtime transabdominal pelvic scan performed to identify the uterus and adnexa and as an overview of other pelvic structures, followed by transvaginal scan to provide greater detail of the u terus and adnexa, with static image documentation. FINDINGS: Uterus: 6.8 x 3.2 x 5.0 cm, volume 56 cc. Anteverted position. No uterine mass is identified. There a re 2 cysts in the fundus measuring 1.4 cm and 1.2 cm respectively. No concerning features. Masses: None. Endometrium: 5.2 mm. No endometrial mass or polyp. Cervix: Not well seen. No gross abnormality. Right Ovary: 3.2 x 2.0 x 2.3 cm, volume 7.7 cc. Normal echotexture and blood flow. Left Ovary: 5.8 x 4.0 x 5.3 cm, volume 64 cc. Normal echotexture and blood flow. Complex 3.3 x 3.5 x 4.3 cm septated left ovarian cyst. No definite thickening septation or mural nodules. This lesion cor responds to the CT findings. Free Fluid: None. Other: None. IMPRESSION: 1. Ultrasound confirms a complex septated left ovarian cyst measuring 3.3 x 3.5 x 4.3 cm. Recommend s hort interval followup to document resolution. If findings persist, patient may benefit from obstetri cs and gynecology workup and management. If further imaging is necessary at that time, MRI with and w ithout contrast is recommended. Both malignant and benign processes remain on the differential. 2. No free fluid. 3. Normal right ovary and adnexa. 4. No endometrial mass or polyp. Fundal cysts are noted. No uterine fibroids. [facility] The above findings were discussed with Rex Ridley by Dr. Ellen Abernathy at 23:18 hrs on 10/24/17. Referring Provider Line: [phone] SITE ID: [id number]
== END 2017-10-24 23:12 | disposition home or self-care (01) ==
LOC: ED 19:09
DX: R11.2 Nausea with vomiting, unspecified (principal); R10.30 Lower abdominal pain, unspecified; N83.202 Unspecified ovarian cyst, left side; G43.001 Migraine without aura, not intractable, with status migrainosus; E11.9 Type 2 diabetes mellitus without complications; F17.200 Nicotine dependence, unspecified, uncomplicated; Z79.84 Long term (current) use of oral hypoglycemic drugs
CPT/HCPCS: 36415; 71046; 74176; 76830; 76856; 80053; 83690; 83735; 85025; 93976; 94640; 96361; 96365; 96375; 99283; 99284; J0131; J1200; J2060; J2765

== ENCOUNTER 2017-11-26 15:00 | Outpatient (CLI) | payer MEDICARE, MEDICAID | END 2017-11-26 15:01 | disposition critical access hospital (66) | LOC: EMS 15:00 | PROVIDERS: ATTEND Surgery | DX: R06.02 Shortness of breath (principal); R05 Cough; R56.9 Unspecified convulsions | CPT/HCPCS: A0425; A0429 ==

== ENCOUNTER 2017-11-26 15:08 | Emergency (ER) | payer MEDICARE, MEDICAID ==
[2017-11-26 15:19] VITALS: BP 128/82
[2017-11-26] MEDS ORDERED: IPRATROPIUM/ALBUTEROL 3 ML NEB INH STA (15:26)
[2017-11-26] MEDS ORDERED: oxyCOD/ACETAMIN 5 MG/325 MG TABLET PO STA (15:26)
--- NOTE | 2017-11-26 15:32 | ED Physician Documentation ---
PD HPI DYSPNEA - Stated complaint Stated Complaint: SOB - Chief complaint Chief Complaint: Resp - History obtained from History obtained from: Patient - History of Present Illness Timing - onset: Other (She has been sick for about a week with cough, it was initially productive but over the last 3 days it is nonproductive and associated with more shortness of breath. She also has URI symptoms and her was also sick. She feels like she has been having fevers and is also having headaches and other aches and pains. She denies pedal edema. No chest pain except for coughing. 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 : Incontinence HEENT: None Psych: Depression, Anxiety, Bipolar disorder, Schizophrenia, ADD/ADHD, Post traumatic stress disorder, Obsessive compulsive disorder Musculoskeletal: Osteoarthritis, Osteoporosis Derm: Other drug resistant infections - Past Surgical History Past Surgical History: Yes General: Cholecystectomy /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: Tubal ligation, Other HEENT: Tonsil/Adenoidectomy - Present Medications Home Medications: Ambulatory Orders Medication Instructions Recorded Confirmed Zonisamide [Zonegran] 200 mg PO BID 12/02/16 10/24/17 Metformin HCl 1,000 mg PO BIDWM 02/15/17 10/24/17 acetaZOLAMIDE [Acetazolamide] 500 mg PO BID 02/15/17 10/24/17 Atorvastatin Calcium 40 mg PO QPM 05/26/17 10/24/17 Esomeprazole Magnesium 40 mg PO QDAC 05/26/17 10/24/17 Loperamide [Imodium] 2 mg PO QID PRN #20 capsule 10/24/17 Albuterol 2.5 mg INH Q4H PRN #30 neb 11/26/17 Albuterol Sulfate [Proventil Hfa 1 - 2 puffs IH Q4H PRN #1 11/26/17 Inhaler] hfa.aer.ad Doxycycline Hyclate 100 mg PO BID #14 tablet 11/26/17 - Allergies Allergies/Adverse Reactions: Allergies Allergy/AdvReac Type Severity Reaction Status Date / Time Latex, Natural Rubber Allergy Mild Rash Verified 10/24/17 19:16 acetaminophen [From Vicodin] Allergy Hives Verified 10/24/17 19:16 hydrocodone bitartrate * Allergy Hives Verified 10/24/17 19:16 [From Vicodin] Penicillins Allergy Rash Verified 10/24/17 19:16 tramadol Allergy Rash Verified 10/24/17 19:16 adhesive AdvReac Intermediate chemical Verified 10/24/17 19:16 logan haloperidol [From Haldol] AdvReac Unknown Hallucinati Verified 10/24/17 19:16 ons iodine AdvReac Unknown Rash Verified 10/24/17 19:16 latex AdvReac Unknown Respiratory Verified 10/24/17 19:16 lamotrigine [From Lamictal] AdvReac Rash Verified 11/26/17 15:19 varenicline tartrate * AdvReac Hallucinati Verified 10/24/17 19:16 [From Chantix] ons steriods AdvReac Intermediate Unknown Uncoded 10/24/17 19:16 - Social History Does the pt smoke?: Yes Smoking Status: Current every day smoker Does the pt drink ETOH?: Yes Does the pt have substance abuse?: Yes - Immunizations Immunizations are current?: Yes - POLST Patient has POLST: No POLST Status: Full Code PD ED PE NORMAL - Vitals Vital signs reviewed: Yes - General General: Alert and oriented X 3, No acute distress - Neck Neck: Supple, no meningeal sign, No bony TTP - Cardiac Cardiac: RRR, No murmur - Respiratory Respiratory: No respiratory distress, Other (Wheezy with diminished air movement throughout) - Abdomen Abdomen: Non tender - Extremities Extremities: No edema, No calf tenderness / cord - Neuro Neuro: Alert and oriented X 3, Normal speech Results - Vitals Vitals: Vital Signs - 24 hr 11/26/17 11/26/17 15:15 15:46 Temperature 36.3 C L Heart Rate 91 85 Respiratory 20 18 Rate Blood Pressure 128/82 H O2 Saturation 95 Oxygen O2 Source Room air - Rads (name of study) 2v chest Radiology: EMP read contemporaneously (RLL PNA) PD MEDICAL DECISION MAKING - ED course ED course: 37-year-old heavy smoker presents with pulmonary symptoms and tight lungs which improved after the administration of a DuoNeb here. X-ray shows pneumonia. She was advised to quit smoking. - Sepsis Event Vital Signs: Vital Signs - 24 hr 11/26/17 11/26/17 15:15 15:46 Temperature 36.3 C L Heart Rate 91 85 Respiratory 20 18 Rate Blood Pressure 128/82 H O2 Saturation 95 Oxygen O2 Source Room air Departure - Departure Disposition: 01 Home, Self Care Clinical Impression: Pneumonia Qualifiers: Pneumonia type: due to unspecified organism Laterality: right Lung location: lower lobe of lung Qualified Code(s): J18.1 - Lobar pneumonia, unspecified organism Condition: Good Record reviewed to determine appropriate education?: Yes Instructions: Pneumonia Dc Prescriptions: Albuterol 2.5 mg INH Q4H PRN #30 neb PRN Reason: Wheezing Albuterol Sulfate [Proventil Hfa Inhaler] 1 - 2 puffs IH Q4H PRN #1 hfa.aer.ad PRN Reason: Cough Doxycycline Hyclate 100 mg PO BID #14 tablet Comments: Call your doctor to arrange a follow-up appointment, make the next available appointment. In the interim, return anytime if worse or if new symptoms develop. Discharge Date/Time: 11/26/17 16:45
--- NOTE | 2017-11-26 16:06 | XRAY Report ---
Procedure Date: 11/26/2017 Accession Number: [id number] / [id number] Procedure: XR - Chest 2 View X-Ray CPT Code: 11362 FULL RESULT: EXAM: CHEST RADIOGRAPHY EXAM DATE: 11/26/2017 03:48 PM. CLINICAL HISTORY: Productive cough for 6 days. COMPARISON: 10/24/2017. TECHNIQUE: 2 views. FINDINGS: Lungs/Pleura: Faint interstitial infiltrate involving the basilar segments right lower lobe. Left lung is clear. Normal lung volumes. No effusion, vascular congestion nor pneumothorax. Mediastinum: Heart and mediastinal contours are unremarkable. Other: None. IMPRESSION: Right posterior lung base infiltrate. RADIA
[2017-11-26] MEDS ORDERED: levoFLOXacin 250 MG TABLET PO STA (16:24)
[2017-11-26] MEDS ORDERED: DOXYCYCLINE 100 MG TABLET PO STA (16:35)
== END 2017-11-26 16:45 | disposition home or self-care (01) ==
LOC: EDUNIT# → ED 15:08
DX: J18.1 Lobar pneumonia, unspecified organism (principal); I10 Essential (primary) hypertension; E78.00 Pure hypercholesterolemia, unspecified; E11.9 Type 2 diabetes mellitus without complications; F17.200 Nicotine dependence, unspecified, uncomplicated
CPT/HCPCS: 71046; 94640; 99283; A9270

== ENCOUNTER 2017-12-02 17:01 | Outpatient (CLI) | payer MEDICARE, MEDICAID ==
--- NOTE | 2017-12-04 11:15 | MRI Report ---
Procedure Date: 12/02/2017 Accession Number: [id number] / [id number] Procedure: MRI - Cervical Spine W/O CPT Code: FULL RESULT: EXAM: MRI CERVICAL SPINE WITHOUT CONTRAST EXAM DATE: 12/02/2017 05:23 PM. CLINICAL HISTORY: Cervical spine radiculopathy. Pain after injury one year ago. COMPARISONS: 02/18/2017 CT. TECHNIQUE: Multiplanar, multisequence T1-weighted and fluid-sensitive sequences of the cervical spine without contrast. Other: None. FINDINGS: Evaluation is mildly limited by patient motion. Neurologic Structures: The visualized posterior fossa structures are unremarkable. No signal abnormality in the visualized spinal cord. Alignment: No scoliosis or spondylolisthesis. Bone Marrow: No gross fractures or bone lesions. No marrow edema. Interspace Levels/Facets: All visualized intervertebral disks are desiccated. C1-c2: Unremarkable. C2-C3: Unremarkable. C3-C4: Unremarkable. C4-C5: Anterior endplate spurring is present. A mild posterior disk/osteophyte complex results in minimal spinal canal narrowing. C5-C6: A mild posterior disk/osteophyte complex causes minimal spinal canal and right foraminal narrowing. There is anterior endplate spurring. C6-C7: Mild disk height loss is present. A mild posterior disk/osteophyte complex results in mild spinal canal and left foraminal narrowing. C7-T1: Mild right facet osteoarthritis results in minimal right foraminal narrowing. Musculature: Normal. No edema or fatty atrophy. Other: The paravertebral and prevertebral soft tissues are normal. IMPRESSION: 1. Mild spinal canal and left foraminal narrowing at C6-C7 due to a disk/osteophyte complex. RADIA
== END 2017-12-02 17:02 | disposition home or self-care (01) ==
LOC: DI 17:01
PROVIDERS: ATTEND Orthopaedic Surgery Orthopaedic Surgery of the Spine
DX: M47.893 Other spondylosis, cervicothoracic region (principal); M48.02 Spinal stenosis, cervical region; M25.78 Osteophyte, vertebrae
CPT/HCPCS: 72141

== ENCOUNTER 2017-12-17 14:55 | Emergency (ER) | payer MEDICARE, MEDICAID ==
[2017-12-17 15:18] VITALS: BP 100/54
== END 2017-12-17 16:07 | disposition left against medical advice (07) ==
LOC: ED 14:55
DX: Z53.21 Procedure and treatment not carried out due to patient leaving prior to being seen by health care provider (principal)

== ENCOUNTER 2017-12-28 13:09 | Outpatient (CLI) | payer MEDICARE, MEDICAID | END 2017-12-28 13:10 | disposition home or self-care (01) | LOC: SC 13:09 | PROVIDERS: ATTEND Internal Medicine Pulmonary Disease | DX: G47.33 Obstructive sleep apnea (adult) (pediatric) (principal) | CPT/HCPCS: 99213; G0463; 99212 ==

== ENCOUNTER 2018-01-13 09:57 | Emergency (ER) | payer MEDICARE, MEDICAID ==
[2018-01-13] MEDS ORDERED: KETOROLAC 60 MG/2 ML VIAL IM STA (12:01)
--- NOTE | 2018-01-13 12:03 | ED Physician Documentation ---
PD HPI NECK PAIN - Stated complaint Stated Complaint: NECK/BACK PX/LT SIDE PX - Chief complaint Chief Complaint: Back Pain - History obtained from History obtained from: Patient, Family - History of Present Illness Timing - onset: How many months ago (2) Timing - duration: Months (2) Timing - details: Gradual onset, Still present Location: Mid, Lower, Left Quality: Pain, Spasm, Sharp, Similar to prior episodes Associated symptoms: Numbness (to the left hand). No: Fever, Weakness, Incontinent of urine, Unable to urinate, Hematuria, Incontinent of stool Improves with: Rest, Ice, Position Worsened by: Movement Contributing factors: Lifting, Twisting Similar symptoms before: Diagnosis (cervical radiculopathy) Recently seen: Clinic - Additional information Additional information: 37-year-old female with a history of cervical radiculopathy and multiple co- morbidities including idiopathic intracranial hypertension, schzioaffective disoder and ADHA has increase in her symptoms and the tramadol at 2 pills per day is not adequate for pain control. Review of Systems Constitutional: denies: Fever Eyes: denies: Decreased vision Ears: denies: Ear pain Nose: reports: Congestion Throat: denies: Sore throat Cardiac: denies: Chest pain / pressure, Palpitations Respiratory: denies: Dyspnea, Cough GI: reports: Nausea. denies: Abdominal Pain : denies: Dysuria, Frequency Musculoskeletal: reports: Neck pain, Back pain, Extremity pain Neurologic: reports: Numbness. 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 : Incontinence HEENT: None Psych: Depression, Anxiety, Bipolar disorder, Schizophrenia, ADD/ADHD, Post traumatic stress disorder, Obsessive compulsive disorder Musculoskeletal: Osteoarthritis, Osteoporosis Derm: Other drug resistant infections - Past Surgical History Past Surgical History: Yes General: Cholecystectomy /[employer] IN[employer] SALES: Tubal ligation, Other HEENT: Tonsil/Adenoidectomy - Present Medications Home Medications: Ambulatory Orders Medication Instructions Recorded Confirmed Zonisamide [Zonegran] 200 mg PO BID 12/02/16 10/24/17 Metformin HCl 1,000 mg PO BIDWM 02/15/17 10/24/17 acetaZOLAMIDE [Acetazolamide] 500 mg PO BID 02/15/17 10/24/17 Atorvastatin Calcium 40 mg PO QPM 05/26/17 10/24/17 Esomeprazole Magnesium 40 mg PO QDAC 05/26/17 10/24/17 Loperamide [Imodium] 2 mg PO QID PRN #20 capsule 10/24/17 Albuterol 2.5 mg INH Q4H PRN #30 neb 11/26/17 Albuterol Sulfate [Proventil Hfa 1 - 2 puffs IH Q4H PRN #1 11/26/17 Inhaler] hfa.aer.ad oxyCODONE/ACET 5/325 [Percocet 5 1 each PO Q6H PRN #12 tablet 01/13/18 mg/325 mg] - Allergies Allergies/Adverse Reactions: Allergies Allergy/AdvReac Type Severity Reaction Status Date / Time Latex, Natural Rubber Allergy Mild Rash Verified 01/13/18 10:12 acetaminophen [From Vicodin] Allergy Hives Verified 01/13/18 10:12 hydrocodone bitartrate * Allergy Hives Verified 01/13/18 10:12 [From Vicodin] Penicillins Allergy Rash Verified 01/13/18 10:12 tramadol Allergy Rash Verified 01/13/18 10:12 adhesive AdvReac Intermediate chemical Verified 01/13/18 10:12 logan haloperidol [From Haldol] AdvReac Unknown Hallucinati Verified 01/13/18 10:12 ons iodine AdvReac Unknown Rash Verified 01/13/18 10:12 latex AdvReac Unknown Respiratory Verified 01/13/18 10:12 lamotrigine [From Lamictal] AdvReac Rash Verified 01/13/18 10:12 varenicline tartrate * AdvReac Hallucinati Verified 01/13/18 10:12 [From Chantix] ons steriods AdvReac Intermediate Unknown Uncoded 01/13/18 10:12 - Social History Does the pt smoke?: Yes Smoking Status: Current every day smoker Does the pt drink ETOH?: Yes Does the pt have substance abuse?: Yes - Immunizations Immunizations are current?: Yes - POLST Patient has POLST: No POLST Status: Full Code PD ED PE NORMAL - General General: Alert and oriented X 3, Well developed/nourished, Other (The patient is in tears and exhibits hysterical pain behavior. ) - HEENT HEENT: Atraumatic, PERRL - Neck Neck: Supple, no meningeal sign, Other (There is hysterical pain to the left side of the neck and shoulder. The muslces are not tensely in spasm. The fingernails are stained deeply with tabacco. There is pain elicited with movement of the left shoulder. 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, No motor deficit, No sensory deficit, Normal speech Eye Opening: Spontaneous Motor: Obeys Commands Verbal: Oriented GCS Score: 15 - Psych Psych: Other (mood is painful and the affect is labile ) Results - Vitals Vitals: Vital Signs - 24 hr 01/13/18 10:10 Temperature 36.8 C Heart Rate 81 Respiratory 16 Rate Blood Pressure 124/73 O2 Saturation 96 Oxygen O2 Source Room air PD MEDICAL DECISION MAKING - ED course Complexity details: considered differential, d/w patient ED course: 37-year-old female with multiple comorbidities has cervical radiculopathy and a left frozen shoulder and she is getting incomplete pain relief with the use of tramadol. She does have a primary care doctor. Here in the emergency department she is treated with Toradol 60 mg IM and we will provide a small amount of Percocet. - Sepsis Event Vital Signs: Vital Signs - 24 hr 01/13/18 10:10 Temperature 36.8 C Heart Rate 81 Respiratory 16 Rate Blood Pressure 124/73 O2 Saturation 96 Oxygen O2 Source Room air Departure - Departure Disposition: 01 Home, Self Care Clinical Impression: Cervical radiculopathy Condition: Stable Instructions: ED Cervical Radiculopathy Follow-Up: Christina Joaquin MD [Physician No Access] - Prescriptions: oxyCODONE/ACET 5/325 [Percocet 5 mg/325 mg] 1 each PO Q6H PRN #12 tablet PRN Reason: Pain
[2018-01-13 12:36] VITALS: BP 124/72
== END 2018-01-13 12:30 | disposition home or self-care (01) ==
LOC: ED 09:57
DX: M54.12 Radiculopathy, cervical region (principal); G93.2 Benign intracranial hypertension; E78.00 Pure hypercholesterolemia, unspecified; E11.9 Type 2 diabetes mellitus without complications; Z79.84 Long term (current) use of oral hypoglycemic drugs; F17.200 Nicotine dependence, unspecified, uncomplicated
CPT/HCPCS: 99283; 99284

== ENCOUNTER 2018-01-21 15:18 | Emergency (ER) | payer MEDICARE, MEDICAID ==
--- NOTE | 2018-01-21 15:50 | ED Physician Documentation ---
PD HPI HEADACHE - Stated complaint Stated Complaint: DIZZY,HD PX /L SHOULDER PX - Chief complaint Chief Complaint: General - History obtained from History obtained from: Patient - History of Present Illness Timing - onset: Other (having chronic headaches. Having left shoulder pain the past month or more, increased with ROM. Hurts with lifting. Having increased number of focal seizures and had general one yesterday; says having more than usual number of them the past month or so. She has been taking usual meds. She says her prior Neurologist in [place] retired and she had to get appt with new one, which is scheduled for March (?).) Worst headache ever?: No: Worst headache ever? Location: Left Quality: Throbbing, Aching Associated symptoms: No: Fever, Stiff neck, Nausea Contributing factors: No: Anticoagulated, Trauma Similar symptoms before: Diagnosis (chronic headaches and seizures) Recently seen: Emergency Dept (seen for shoulder pain recently. Getting some PT for the shoulder as well.) Review of Systems Constitutional: reports: Myalgias. denies: Fever, Chills Nose: denies: Rhinorrhea / runny nose, Congestion Throat: denies: Sore throat Respiratory: denies: Cough GI: reports: Nausea. 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 HEENT: None Psych: Depression, Anxiety, Bipolar disorder, Schizophrenia, ADD/ADHD, Post traumatic stress disorder, Obsessive compulsive disorder Musculoskeletal: Osteoarthritis, Osteoporosis Derm: Other drug resistant infections - Past Surgical History Past Surgical History: Yes General: 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, Other HEENT: Tonsil/Adenoidectomy - Present Medications Home Medications: Ambulatory Orders Medication Instructions Recorded Confirmed Zonisamide [Zonegran] 200 mg PO BID 12/02/16 10/24/17 Metformin HCl 1,000 mg PO BIDWM 02/15/17 10/24/17 acetaZOLAMIDE [Acetazolamide] 500 mg PO BID 02/15/17 10/24/17 Atorvastatin Calcium 40 mg PO QPM 05/26/17 10/24/17 Esomeprazole Magnesium 40 mg PO QDAC 05/26/17 10/24/17 Albuterol 2.5 mg INH Q4H PRN #30 neb 11/26/17 Albuterol Sulfate [Proventil Hfa 1 - 2 puffs IH Q4H PRN #1 11/26/17 Inhaler] hfa.aer.ad Oxycodone HCl/Acetaminophen 1 each PO Q6H PRN #20 tablet 01/21/18 [Percocet 5-325 mg Tablet] QUEtiapine [SEROquel] 400 01/21/18 Topiramate 25 mg PO QPM #30 tablet 01/21/18 Trazodone HCl 400 01/21/18 Venlafaxine ER [Effexor ER] 150 01/21/18 clonazePAM [Klonopin] 1 01/21/18 - Allergies Allergies/Adverse Reactions: Allergies Allergy/AdvReac Type Severity Reaction Status Date / Time Latex, Natural Rubber Allergy Mild Rash Verified 01/13/18 10:12 acetaminophen [From Vicodin] Allergy Hives Verified 01/13/18 10:12 hydrocodone bitartrate * Allergy Hives Verified 01/13/18 10:12 [From Vicodin] Penicillins Allergy Rash Verified 01/13/18 10:12 tramadol Allergy Rash Verified 01/13/18 10:12 adhesive AdvReac Intermediate chemical Verified 01/13/18 10:12 logan haloperidol [From Haldol] AdvReac Unknown Hallucinati Verified 01/13/18 10:12 ons iodine AdvReac Unknown Rash Verified 01/13/18 10:12 latex AdvReac Unknown Respiratory Verified 01/13/18 10:12 lamotrigine [From Lamictal] AdvReac Rash Verified 01/13/18 10:12 varenicline tartrate * AdvReac Hallucinati Verified 01/13/18 10:12 [From Chantix] ons steriods AdvReac Intermediate Unknown Uncoded 01/13/18 10:12 - Social History Does the pt smoke?: Yes Smoking Status: Current every day smoker Does the pt drink ETOH?: Yes Does the pt have substance abuse?: Yes - Immunizations Immunizations are current?: Yes - POLST Patient has POLST: No POLST Status: Full Code PD ED PE NORMAL - Vitals Vital signs reviewed: Yes - General General: Alert and oriented X 3, No acute distress, Well developed/nourished - HEENT HEENT: Pharynx benign - Neck Neck: Supple, no meningeal sign, No adenopathy, Other (tender left trapezius muscle. Tender in left suprascapular area and lateral shoulder. ) - Cardiac Cardiac: RRR, No murmur - Respiratory Respiratory: Clear bilaterally - Derm Derm: Normal color, Warm and dry, No rash - Extremities Extremities: No tenderness to palpate. No: Normal ROM s pain (left shoulder hurts with abduction and rotational movements but does have good ROM, so not seeming stiffened/frozen. 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 Also with persistent shoulder pain. Has appt with new neurologist (her prior one retired) but not until March. 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 She had been on Topomax in past as single med without improvement, but will try it as low dose adjunct. ), d/w patient - Sepsis Event Vital Signs: Vital Signs - 24 hr 01/21/18 01/21/18 15:30 16:31 Temperature 36.3 C L 36.2 C L Heart Rate 84 84 Respiratory 16 16 Rate Blood Pressure 121/82 H 97/84 H O2 Saturation 97 94 Oxygen O2 Source Room air Departure - Departure Disposition: 01 Home, Self Care Clinical Impression: Seizure disorder Left shoulder pain Qualifiers: Chronicity: unspecified Qualified Code(s): M25.512 - Pain in left shoulder Condition: Stable Record reviewed to determine appropriate education?: Yes Prescriptions: Oxycodone HCl/Acetaminophen [Percocet 5-325 mg Tablet] 1 each PO Q6H PRN #20 tablet PRN Reason: Pain Topiramate 25 mg PO QPM #30 tablet Comments: continue your current medications. Add topiramate 25 mg at night which is a low dose for adjunctive treatment of the seizures. This may help with her headaches as well. For the shoulder, continue range of motion exercises and therapy. Use a sling periodically to reduce pain. Do not use it consistently so your shoulder does not get stiff. Add Percocet if needed for pain short- term. Follow-up with your primary care regarding the shoulder. Follow-up with neurology in March as scheduled and he can call and see if they have sooner appointments. Discharge Date/Time: 01/21/18 16:40
[2018-01-21] MEDS ORDERED: oxyCODONE 5 MG TABLET PO STA (16:23)
[2018-01-21 16:32] VITALS: BP 97/84
== END 2018-01-21 16:40 | disposition home or self-care (01) ==
LOC: ED 15:18
DX: G40.909 Epilepsy, unspecified, not intractable, without status epilepticus (principal); M25.512 Pain in left shoulder; I10 Essential (primary) hypertension; E78.00 Pure hypercholesterolemia, unspecified; E11.9 Type 2 diabetes mellitus without complications; F17.200 Nicotine dependence, unspecified, uncomplicated; Z79.84 Long term (current) use of oral hypoglycemic drugs
CPT/HCPCS: 99283; A9270

== ENCOUNTER 2018-01-27 15:17 | Outpatient (CLI) | payer MEDICARE, MEDICAID ==
[2018-01-27 15:33] LABS: BASOPHILS # (AUTO) 0.4 10^3/uL (0.0-0.1); BASOPHILS % (AUTO) 4.8 %; EOSINOPHILS # (AUTO) 0.2 10^3/uL (0.0-0.7); EOSINOPHILS % (AUTO) 2.3 %; HGB - HEMOGLOBIN 15.3 g/dL (12.0-16.0); LYMPHOCYTES % (AUTO) 32.9 %; MEAN CORPUSCULAR HEMOGLOBIN 32.1 pg (27.0-31.0); MEAN CORPUSCULAR HGB CONC 35.2 g/dL (32.0-36.0); MEAN CORPUSCULAR VOLUME 91.2 fL (81.0-99.0); MONOCYTES # (AUTO) 0.6 10^3/uL (0.0-1.0); MONOCYTES % (AUTO) 6.4 %; NEUTROPHILS # (AUTO) 4.9 10^3/uL (1.5-6.6); NEUTROPHILS % (AUTO) 53.6 %; PLT - PLATELET COUNT 326 10^3/uL (130-450); RED BLOOD COUNT 4.76 10^6/uL (4.20-5.40); RED CELL DISTRIBUTION WIDTH 13.9 % (12.0-15.0); WHITE BLOOD COUNT 9.1 x10^3/uL (4.8-10.8)
[2018-01-27 15:46] LABS: ALBUMIN 4.2 g/dL (3.2-5.5); ALBUMIN/GLOBULIN RATIO 1.3 (1.0-2.2); BILIRUBIN,TOTAL 0.5 mg/dL (0.2-1.0); CALCIUM 8.8 mg/dL (8.5-10.3); CREATININE 0.6 mg/dL (0.4-1.0); TOTAL PROTEIN 7.5 g/dL (6.7-8.2)
[2018-01-27 15:52] LABS: CHOL/HDL RATIO 6.4 (<4.4); CHOLESTEROL 231 mg/dL; HDL CHOLESTEROL 36 mg/dL
[2018-01-27 16:02] LABS: HB2 TOTAL 15.7 g/dL; HEMOGLOBIN A1C 0.97 g/dL; HEMOGLOBIN A1C % 7.8 % (4.6-6.2)
[2018-01-27 16:14] LABS: LDL CHOLESTEROL,DIRECT 97 mg/dL; LDLD/HDL RATIO 2.7 (<4.4)
== END 2018-01-27 15:18 | disposition home or self-care (01) ==
LOC: LAB 15:17
PROVIDERS: ATTEND Nurse Practitioner Psychiatric/Mental Health
DX: F25.0 Schizoaffective disorder, bipolar type (principal); E11.8 Type 2 diabetes mellitus with unspecified complications
CPT/HCPCS: 36415; 80053; 80061; 83036; 83721; 85025

== ENCOUNTER 2018-02-09 14:15 | Emergency (ER) | payer MEDICARE, MEDICAID ==
[2018-02-09 14:35] VITALS: BP 118/70
== END 2018-02-09 16:17 | disposition left against medical advice (07) ==
LOC: ED 14:15
DX: Z53.21 Procedure and treatment not carried out due to patient leaving prior to being seen by health care provider (principal)

== ENCOUNTER 2018-02-25 17:53 | Outpatient (CLI) | payer MEDICARE, MEDICAID ==
[2018-02-25 18:14] LABS: BASOPHILS # (AUTO) 0.1 10^3/uL (0.0-0.1); BASOPHILS % (AUTO) 1.3 %; EOSINOPHILS # (AUTO) 0.2 10^3/uL (0.0-0.7); EOSINOPHILS % (AUTO) 2.1 %; HGB - HEMOGLOBIN 15.6 g/dL (12.0-16.0); LYMPHOCYTES # (AUTO) 3.1 10^3/uL (1.5-3.5); LYMPHOCYTES % (AUTO) 33.2 %; MEAN CORPUSCULAR HEMOGLOBIN 32.1 pg (27.0-31.0); MEAN CORPUSCULAR HGB CONC 34.5 g/dL (32.0-36.0); MEAN CORPUSCULAR VOLUME 93.2 fL (81.0-99.0); MEAN PLATELET VOLUME 6.7 fL (7.9-10.8); MONOCYTES # (AUTO) 0.5 10^3/uL (0.0-1.0); MONOCYTES % (AUTO) 5.8 %; NEUTROPHILS # (AUTO) 5.4 10^3/uL (1.5-6.6); NEUTROPHILS % (AUTO) 57.6 %; PLT - PLATELET COUNT 251 10^3/uL (130-450); RED BLOOD COUNT 4.87 10^6/uL (4.20-5.40); RED CELL DISTRIBUTION WIDTH 13.7 % (12.0-15.0); WHITE BLOOD COUNT 9.4 x10^3/uL (4.8-10.8)
[2018-02-25 18:58] LABS: ALBUMIN 4.1 g/dL (3.2-5.5); ALBUMIN/GLOBULIN RATIO 1.4 (1.0-2.2); BILIRUBIN,TOTAL 0.3 mg/dL (0.2-1.0); CALCIUM 8.8 mg/dL (8.5-10.3); CREATININE 0.6 mg/dL (0.4-1.0)
== END 2018-02-25 17:54 | disposition home or self-care (01) ==
LOC: LAB 17:53
PROVIDERS: ATTEND Nurse Practitioner Psychiatric/Mental Health
DX: F25.0 Schizoaffective disorder, bipolar type (principal)
CPT/HCPCS: 36415; 80053; 81599; 85025

== ENCOUNTER 2018-03-11 15:44 | Outpatient (CLI) | payer MEDICARE, MEDICAID ==
[2018-03-11 16:13] LABS: BASOPHILS # (AUTO) 0.1 10^3/uL (0.0-0.1); EOSINOPHILS # (AUTO) 0.2 10^3/uL (0.0-0.7); EOSINOPHILS % (AUTO) 1.7 %; LYMPHOCYTES # (AUTO) 2.6 10^3/uL (1.5-3.5); LYMPHOCYTES % (AUTO) 23.6 %; MEAN CORPUSCULAR HGB CONC 34.7 g/dL (32.0-36.0); MEAN CORPUSCULAR VOLUME 92.3 fL (81.0-99.0); MONOCYTES # (AUTO) 0.6 10^3/uL (0.0-1.0); MONOCYTES % (AUTO) 5.7 %; NEUTROPHILS # (AUTO) 7.4 10^3/uL (1.5-6.6); PLT - PLATELET COUNT 250 10^3/uL (130-450); RED BLOOD COUNT 5.01 10^6/uL (4.20-5.40); RED CELL DISTRIBUTION WIDTH 13.9 % (12.0-15.0); WHITE BLOOD COUNT 10.9 x10^3/uL (4.8-10.8)
== END 2018-03-11 15:45 | disposition home or self-care (01) ==
LOC: LAB 15:44
PROVIDERS: ATTEND Nurse Practitioner Psychiatric/Mental Health
DX: F25.0 Schizoaffective disorder, bipolar type (principal)
CPT/HCPCS: 36415; 85025

== ENCOUNTER 2018-03-17 13:56 | Outpatient (CLI) | payer MEDICARE, MEDICAID ==
[2018-03-17 14:25] LABS: BASOPHILS # (AUTO) 0.1 10^3/uL (0.0-0.1); BASOPHILS % (AUTO) 1.1 %; EOSINOPHILS # (AUTO) 0.2 10^3/uL (0.0-0.7); HGB - HEMOGLOBIN 16.6 g/dL (12.0-16.0); LYMPHOCYTES # (AUTO) 2.8 10^3/uL (1.5-3.5); LYMPHOCYTES % (AUTO) 31.6 %; MEAN CORPUSCULAR HGB CONC 34.6 g/dL (32.0-36.0); MEAN CORPUSCULAR VOLUME 92.3 fL (81.0-99.0); MONOCYTES # (AUTO) 0.8 10^3/uL (0.0-1.0); MONOCYTES % (AUTO) 9.1 %; NEUTROPHILS # (AUTO) 4.9 10^3/uL (1.5-6.6); NEUTROPHILS % (AUTO) 56.2 %; PLT - PLATELET COUNT 264 10^3/uL (130-450); RED BLOOD COUNT 5.19 10^6/uL (4.20-5.40); RED CELL DISTRIBUTION WIDTH 13.9 % (12.0-15.0); WHITE BLOOD COUNT 8.7 x10^3/uL (4.8-10.8)
== END 2018-03-17 13:57 | disposition home or self-care (01) ==
LOC: LAB 13:56
PROVIDERS: ATTEND Nurse Practitioner Psychiatric/Mental Health
DX: F25.0 Schizoaffective disorder, bipolar type (principal)
CPT/HCPCS: 36415; 85025

== ENCOUNTER 2018-03-18 17:47 | Emergency (ER) | payer MEDICARE, MEDICAID ==
[2018-03-18 19:59] VITALS: BP 115/91
== END 2018-03-18 20:47 | disposition left against medical advice (07) ==
LOC: ED 17:47
DX: Z53.21 Procedure and treatment not carried out due to patient leaving prior to being seen by health care provider (principal)

== ENCOUNTER 2018-03-24 13:42 | Outpatient (CLI) | payer MEDICARE, MEDICAID ==
[2018-03-24 14:25] LABS: BASOPHILS # (AUTO) 0.1 10^3/uL (0.0-0.1); BASOPHILS % (AUTO) 1.4 %; EOSINOPHILS # (AUTO) 0.2 10^3/uL (0.0-0.7); EOSINOPHILS % (AUTO) 1.6 %; HGB - HEMOGLOBIN 16.4 g/dL (12.0-16.0); LYMPHOCYTES # (AUTO) 2.9 10^3/uL (1.5-3.5); LYMPHOCYTES % (AUTO) 27.9 %; MEAN CORPUSCULAR HEMOGLOBIN 32.2 pg (27.0-31.0); MEAN CORPUSCULAR HGB CONC 35.2 g/dL (32.0-36.0); MEAN CORPUSCULAR VOLUME 91.5 fL (81.0-99.0); MEAN PLATELET VOLUME 7.2 fL (7.9-10.8); MONOCYTES # (AUTO) 0.6 10^3/uL (0.0-1.0); MONOCYTES % (AUTO) 5.5 %; NEUTROPHILS # (AUTO) 6.5 10^3/uL (1.5-6.6); NEUTROPHILS % (AUTO) 63.6 %; PLT - PLATELET COUNT 244 10^3/uL (130-450); RED BLOOD COUNT 5.08 10^6/uL (4.20-5.40); RED CELL DISTRIBUTION WIDTH 13.3 % (12.0-15.0); WHITE BLOOD COUNT 10.3 x10^3/uL (4.8-10.8)
== END 2018-03-24 13:43 | disposition home or self-care (01) ==
LOC: LAB 13:42
PROVIDERS: ATTEND Nurse Practitioner Psychiatric/Mental Health
DX: F25.0 Schizoaffective disorder, bipolar type (principal)
CPT/HCPCS: 36415; 85025

== ENCOUNTER 2018-03-25 12:17 | Emergency (ER) | payer MEDICARE, MEDICAID ==
[2018-03-25] MEDS ORDERED: PROMETHAZINE 25 MG/1 ML VIAL IM STA (13:49)
[2018-03-25] MEDS ORDERED: diphenhydrAMINE INJ 50 MG/ML VIAL IM STA (13:49)
[2018-03-25] MEDS ORDERED: KETOROLAC 60 MG/2 ML VIAL IM STA (13:49)
--- NOTE | 2018-03-25 14:01 | ED Physician Documentation ---
PD HPI HEADACHE - Stated complaint Stated Complaint: MIGRAINE - Chief complaint Chief Complaint: Neuro - History obtained from History obtained from: Patient - History of Present Illness Timing - onset: How many weeks ago (3) Timing - onset during: Rest Timing - duration: Weeks (3) Timing - details: Gradual onset Pain level max: 10 Pain level now: 10 Location: Global Quality: Throbbing, Aching Associated symptoms: Nausea, Other (photophobia). No: Fever, Stiff neck, Vomiting, Weakness, Numbness, Syncope, Seizure, Eye pain, Vision changes Improved by: Rest, Dark room Worsened by: Light, Noise Similar symptoms before: Diagnosis (chronic headaches) - Additional information Additional information: Patient states she is switching neurologist and has an appointment on the of this month. Review of Systems Constitutional: denies: Fever, Chills Ears: denies: Ear pain Nose: denies: Rhinorrhea / runny nose, Congestion Respiratory: denies: Cough GI: denies: Abdominal Pain, Nausea, Vomiting, Diarrhea Skin: denies: Rash Musculoskeletal: denies: Neck pain, Back pain Neurologic: denies: Focal weakness, Numbness, Headache PD PAST MEDICAL HISTORY - Past Medical History Past Medical History: Yes Cardiovascular: High cholesterol, Other Respiratory: Asthma, Sleep apnea, CPAP use Neuro: Seizure disorder Endocrine/Autoimmune: Type 2 diabetes GI: GERD, Ulcers, Chronic diarrhea, Other CARE SUPPORT REPRESENTATIVE: None : Incontinence HEENT: None Psych: Depression, Anxiety, Bipolar disorder, Schizophrenia, ADD/ADHD, Post traumatic stress disorder, Obsessive compulsive disorder Musculoskeletal: Osteoarthritis, Osteoporosis Derm: Other drug resistant infections - Past Surgical History Past Surgical History: Yes General: Cholecystectomy /CARE SUPPORT REPRESENTATIVE: Tubal ligation, Other HEENT: Tonsil/Adenoidectomy, Other - Present Medications Home Medications: Ambulatory Orders Medication Instructions Recorded Confirmed Zonisamide [Zonegran] 200 mg PO BID 12/02/16 10/24/17 Metformin HCl 1,000 mg PO BIDWM 02/15/17 10/24/17 acetaZOLAMIDE [Acetazolamide] 500 mg PO BID 02/15/17 10/24/17 Atorvastatin Calcium 40 mg PO QPM 05/26/17 10/24/17 Esomeprazole Magnesium 40 mg PO QDAC 05/26/17 10/24/17 Albuterol 2.5 mg INH Q4H PRN #30 neb 11/26/17 Albuterol Sulfate [Proventil Hfa 1 - 2 puffs IH Q4H PRN #1 11/26/17 Inhaler] hfa.aer.ad QUEtiapine [SEROquel] 400 01/21/18 Trazodone HCl 400 01/21/18 Venlafaxine ER [Effexor ER] 150 01/21/18 clonazePAM [Klonopin] 1 mg ORAL QPM 01/21/18 Clozaril 25 mg ORAL BID 03/25/18 - Allergies Allergies/Adverse Reactions: Allergies Allergy/AdvReac Type Severity Reaction Status Date / Time Latex, Natural Rubber Allergy Mild Rash Verified 03/25/18 12:25 acetaminophen [From Vicodin] Allergy Hives Verified 03/25/18 12:25 hydrocodone bitartrate * Allergy Hives Verified 03/25/18 12:25 [From Vicodin] ketorolac [From Toradol] Allergy Unknown Verified 03/25/18 12:25 Penicillins Allergy Rash Verified 03/25/18 12:25 tramadol Allergy Rash Verified 03/25/18 12:25 adhesive AdvReac Intermediate chemical Verified 03/25/18 12:25 logan haloperidol [From Haldol] AdvReac Unknown Hallucinati Verified 03/25/18 12:25 ons iodine AdvReac Unknown Rash Verified 03/25/18 12:25 latex AdvReac Unknown Respiratory Verified 03/25/18 12:25 lamotrigine [From Lamictal] AdvReac Rash Verified 03/25/18 12:25 varenicline tartrate * AdvReac Hallucinati Verified 03/25/18 12:25 [From Chantix] ons steriods AdvReac Intermediate Unknown Uncoded 03/25/18 12:25 - Social History Does the pt smoke?: Yes Smoking Status: Current every day smoker Does the pt drink ETOH?: Yes Does the pt have substance abuse?: No Substance Use and Type: Marijuana - Immunizations Immunizations are current?: No - POLST Patient has POLST: No POLST Status: Full Code PD ED PE NORMAL - Vitals Vital signs reviewed: Yes - General General: Alert and oriented X 3, No acute distress - HEENT HEENT: PERRL, Moist mucous membranes, Other (ON diameter on US - OD is 3.2mm, OS is 3.4 mm) - Neck Neck: Supple, no meningeal sign - Cardiac Cardiac: RRR - Respiratory Respiratory: No respiratory distress, Clear bilaterally - Abdomen Abdomen: Soft, Non tender - Derm Derm: Warm and dry - Neuro Neuro: Alert and oriented X 3, shape carver 2-12 intact, No motor deficit, No sensory deficit, Normal speech - Psych Psych: Normal mood, Normal affect Results - Vitals Vitals: Vital Signs - 24 hr 03/25/18 03/25/18 12:23 14:32 Temperature 36 C L Heart Rate 85 71 Respiratory 18 18 Rate Blood Pressure 134/80 H 103/63 O2 Saturation 95 95 Oxygen O2 Source Room air PD MEDICAL DECISION MAKING - ED course Complexity details: considered differential, d/w patient ED course: Patient is a 38-year-old female with chronic headaches. No evidence of increased intracranial pressure on bedside ultrasound. No papilledema. Normal optic nerves. Given Toradol, Phenergan, Benadryl and headache resolved. She feels completely better. We will have her follow-up with her doctor for further care. Patient counseled regarding signs and symptoms for which I believe and urgent re-evaluation would be necessary. Patient with good understanding of and agreement to plan and is comfortable going home at this time This document was made in part using voice recognition software. While efforts are made to proofread this document, sound alike and grammatical errors may occur. Departure - Departure Disposition: 01 Home, Self Care Clinical Impression: Headache Qualifiers: Headache type: unspecified Headache chronicity pattern: acute headache Intractability: not intractable Qualified Code(s): R51 - Headache Condition: Good Instructions: ED Headache Migraine Follow-Up: your,doctor in 1 week [Other] Comments: Return if you worsen. Go home and rest today. Discharge Date/Time: 03/25/18 14:32
[2018-03-25 14:33] VITALS: BP 103/63
== END 2018-03-25 14:32 | disposition home or self-care (01) ==
LOC: ED 12:17
DX: R51 Headache (principal); E78.00 Pure hypercholesterolemia, unspecified; E11.9 Type 2 diabetes mellitus without complications; Z79.84 Long term (current) use of oral hypoglycemic drugs; F17.200 Nicotine dependence, unspecified, uncomplicated
CPT/HCPCS: 96372; 99283; J1200

== ENCOUNTER 2018-04-02 10:53 | Outpatient (CLI) | payer MEDICARE, MEDICAID ==
[2018-04-02 11:13] LABS: BASOPHILS # (AUTO) 0.1 10^3/uL (0.0-0.1); EOSINOPHILS # (AUTO) 0.3 10^3/uL (0.0-0.7); LYMPHOCYTES # (AUTO) 2.3 10^3/uL (1.5-3.5); LYMPHOCYTES % (AUTO) 26.1 %; MEAN CORPUSCULAR HEMOGLOBIN 32.2 pg (27.0-31.0); MEAN CORPUSCULAR HGB CONC 34.9 g/dL (32.0-36.0); MEAN CORPUSCULAR VOLUME 92.2 fL (81.0-99.0); MEAN PLATELET VOLUME 6.9 fL (7.9-10.8); MONOCYTES # (AUTO) 0.6 10^3/uL (0.0-1.0); MONOCYTES % (AUTO) 6.6 %; NEUTROPHILS # (AUTO) 5.6 10^3/uL (1.5-6.6); NEUTROPHILS % (AUTO) 63.3 %; PLT - PLATELET COUNT 257 10^3/uL (130-450); RED BLOOD COUNT 4.98 10^6/uL (4.20-5.40); RED CELL DISTRIBUTION WIDTH 13.3 % (12.0-15.0); WHITE BLOOD COUNT 8.9 x10^3/uL (4.8-10.8)
== END 2018-04-02 10:54 | disposition home or self-care (01) ==
LOC: LAB 10:53
PROVIDERS: ATTEND Nurse Practitioner Psychiatric/Mental Health
DX: F25.0 Schizoaffective disorder, bipolar type (principal)
CPT/HCPCS: 36415; 85025

== ENCOUNTER 2018-04-10 08:00 | Outpatient (CLI) | payer MEDICARE, MEDICAID ==
[2018-04-10 09:06] LABS: BASOPHILS # (AUTO) 0.1 10^3/uL (0.0-0.1); BASOPHILS % (AUTO) 1.3 %; EOSINOPHILS # (AUTO) 0.2 10^3/uL (0.0-0.7); EOSINOPHILS % (AUTO) 2.6 %; HGB - HEMOGLOBIN 15.8 g/dL (12.0-16.0); LYMPHOCYTES # (AUTO) 2.7 10^3/uL (1.5-3.5); LYMPHOCYTES % (AUTO) 32.1 %; MEAN CORPUSCULAR HEMOGLOBIN 32.3 pg (27.0-31.0); MEAN CORPUSCULAR HGB CONC 34.8 g/dL (32.0-36.0); MEAN CORPUSCULAR VOLUME 92.8 fL (81.0-99.0); MEAN PLATELET VOLUME 6.9 fL (7.9-10.8); MONOCYTES # (AUTO) 0.5 10^3/uL (0.0-1.0); MONOCYTES % (AUTO) 6.6 %; NEUTROPHILS # (AUTO) 4.8 10^3/uL (1.5-6.6); NEUTROPHILS % (AUTO) 57.4 %; PLT - PLATELET COUNT 221 10^3/uL (130-450); RED BLOOD COUNT 4.89 10^6/uL (4.20-5.40); RED CELL DISTRIBUTION WIDTH 13.6 % (12.0-15.0); WHITE BLOOD COUNT 8.3 x10^3/uL (4.8-10.8)
== END 2018-04-10 23:59 | disposition home or self-care (01) ==
LOC: LAB.R 08:00
PROVIDERS: ATTEND Nurse Practitioner Psychiatric/Mental Health
DX: F25.0 Schizoaffective disorder, bipolar type (principal)
CPT/HCPCS: 36415; 85025

== ENCOUNTER 2018-04-14 09:42 | Outpatient (CLI) | payer MEDICARE, MEDICAID ==
[2018-04-14 09:59] LABS: BASOPHILS # (AUTO) 0.1 10^3/uL (0.0-0.1); BASOPHILS % (AUTO) 1.1 %; EOSINOPHILS # (AUTO) 0.2 10^3/uL (0.0-0.7); HGB - HEMOGLOBIN 15.9 g/dL (12.0-16.0); LYMPHOCYTES # (AUTO) 2.5 10^3/uL (1.5-3.5); LYMPHOCYTES % (AUTO) 30.6 %; MEAN CORPUSCULAR HEMOGLOBIN 31.9 pg (27.0-31.0); MEAN CORPUSCULAR HGB CONC 34.4 g/dL (32.0-36.0); MEAN CORPUSCULAR VOLUME 92.7 fL (81.0-99.0); MEAN PLATELET VOLUME 6.7 fL (7.9-10.8); MONOCYTES # (AUTO) 0.6 10^3/uL (0.0-1.0); MONOCYTES % (AUTO) 6.9 %; NEUTROPHILS # (AUTO) 4.9 10^3/uL (1.5-6.6); NEUTROPHILS % (AUTO) 59.4 %; PLT - PLATELET COUNT 230 10^3/uL (130-450); RED BLOOD COUNT 4.98 10^6/uL (4.20-5.40); RED CELL DISTRIBUTION WIDTH 13.5 % (12.0-15.0); WHITE BLOOD COUNT 8.2 x10^3/uL (4.8-10.8)
== END 2018-04-14 09:43 | disposition home or self-care (01) ==
LOC: LAB 09:42
PROVIDERS: ATTEND Nurse Practitioner Psychiatric/Mental Health
DX: F25.0 Schizoaffective disorder, bipolar type (principal)
CPT/HCPCS: 36415; 85025

== ENCOUNTER 2018-04-22 11:45 | Outpatient (CLI) | payer MEDICARE, MEDICAID ==
[2018-04-22 12:14] LABS: BASOPHILS # (AUTO) 0.1 10^3/uL (0.0-0.1); EOSINOPHILS # (AUTO) 0.1 10^3/uL (0.0-0.7); EOSINOPHILS % (AUTO) 1.6 %; HGB - HEMOGLOBIN 16.1 g/dL (12.0-16.0); LYMPHOCYTES # (AUTO) 2.4 10^3/uL (1.5-3.5); LYMPHOCYTES % (AUTO) 27.3 %; MEAN CORPUSCULAR HEMOGLOBIN 31.6 pg (27.0-31.0); MEAN CORPUSCULAR HGB CONC 34.6 g/dL (32.0-36.0); MEAN CORPUSCULAR VOLUME 91.2 fL (81.0-99.0); MEAN PLATELET VOLUME 7.2 fL (7.9-10.8); MONOCYTES # (AUTO) 0.6 10^3/uL (0.0-1.0); MONOCYTES % (AUTO) 6.9 %; NEUTROPHILS # (AUTO) 5.6 10^3/uL (1.5-6.6); NEUTROPHILS % (AUTO) 63.2 %; PLT - PLATELET COUNT 203 10^3/uL (130-450); RED BLOOD COUNT 5.09 10^6/uL (4.20-5.40); RED CELL DISTRIBUTION WIDTH 13.4 % (12.0-15.0); WHITE BLOOD COUNT 8.8 x10^3/uL (4.8-10.8)
== END 2018-04-22 11:46 | disposition home or self-care (01) ==
LOC: LAB 11:45
PROVIDERS: ATTEND Nurse Practitioner Psychiatric/Mental Health
DX: F25.0 Schizoaffective disorder, bipolar type (principal)
CPT/HCPCS: 36415; 85025

== ENCOUNTER 2018-04-29 07:37 | Outpatient (CLI) | payer MEDICARE, MEDICAID ==
--- NOTE | 2018-04-29 18:42 | MRI Report ---
Reason: MASS OF JOINT OF LEFT WRIST Procedure Date: 04/29/2018 Accession Number: [id number] / [id number] Procedure: MRI - Wrist LT W/O CPT Code: FULL RESULT: EXAM: LEFT WRIST MRI WITHOUT CONTRAST EXAM DATE: 04/29/2018 08:43 AM. CLINICAL HISTORY: Mass of joint of left wrist. Possible ganglion cyst. COMPARISON: None. TECHNIQUE: Multiplanar, multisequence T1-weighted and fluid-sensitive sequences of the wrist without contrast. Other: None. FINDINGS: Bones: No fractures or subluxations. No marrow edema. No bone lesions. Cartilage: The articular cartilage is unremarkable. Nonvisualization of the triangular fibrocartilage. Ligaments: The scapholunate and lunotriquetral ligaments are intact. Tendons: The extensor compartment I through and flexor tendons are unremarkable. Musculature: No edema or fatty atrophy. Other: The contents of the carpal tunnel, including the median nerve, are unremarkable. Guyons canal is unremarkable. No ganglion cysts. No joint effusions. Deep to the skin marker at the dorsum wrist is a subcutaneous nodule which measures 8.1 x 5.2 mm in transverse dimension and is of intermediate signal (image 13 series 401). There is corresponding intermediate signal on the T2-weighted fat saturation sequence. Evaluation of this subcutaneous nodule is compromised secondary to motion artifact. IMPRESSION: Probable subcutaneous solid nodule 8.1 x 5.2 mm dorsum wrist corresponding to the palpable area of interest indicated by the skin marker. Evaluation of the nodule signal characteristics is compromised secondary to patient motion. Recommend ultrasound correlation to confirm a solid nodule. [facility] MUSCULOSKELETAL RADIOLOGY SECTION
== END 2018-04-29 07:38 | disposition home or self-care (01) ==
LOC: DI 07:37
PROVIDERS: ATTEND Orthopaedic Surgery Sports Medicine
DX: M25.832 Other specified joint disorders, left wrist (principal)

== ENCOUNTER 2018-04-30 13:50 | Outpatient (CLI) | payer MEDICARE, MEDICAID ==
[2018-04-30 14:16] LABS: BASOPHILS % (AUTO) 0.6 %; EOSINOPHILS # (AUTO) 0.2 10^3/uL (0.0-0.7); EOSINOPHILS % (AUTO) 2.5 %; HGB - HEMOGLOBIN 16.6 g/dL (12.0-16.0); LYMPHOCYTES # (AUTO) 1.9 10^3/uL (1.5-3.5); LYMPHOCYTES % (AUTO) 28.1 %; MEAN CORPUSCULAR HEMOGLOBIN 31.8 pg (27.0-31.0); MEAN CORPUSCULAR HGB CONC 34.6 g/dL (32.0-36.0); MEAN CORPUSCULAR VOLUME 91.9 fL (81.0-99.0); MEAN PLATELET VOLUME 7.2 fL (7.9-10.8); MONOCYTES # (AUTO) 0.5 10^3/uL (0.0-1.0); MONOCYTES % (AUTO) 7.8 %; NEUTROPHILS # (AUTO) 4.2 10^3/uL (1.5-6.6); PLT - PLATELET COUNT 232 10^3/uL (130-450); RED BLOOD COUNT 5.24 10^6/uL (4.20-5.40); RED CELL DISTRIBUTION WIDTH 13.6 % (12.0-15.0); WHITE BLOOD COUNT 6.9 x10^3/uL (4.8-10.8)
== END 2018-04-30 13:51 | disposition home or self-care (01) ==
LOC: LAB 13:50
PROVIDERS: ATTEND Nurse Practitioner Psychiatric/Mental Health
DX: Z00.00 Encounter for general adult medical examination without abnormal findings (principal); F25.0 Schizoaffective disorder, bipolar type; F32.9 Major depressive disorder, single episode, unspecified; L29.9 Pruritus, unspecified; Z11.3 Encounter for screening for infections with a predominantly sexual mode of transmission
CPT/HCPCS: 36415; 85025

== ENCOUNTER 2018-05-07 16:08 | Outpatient (CLI) | payer MEDICARE, MEDICAID ==
[2018-05-07 16:34] LABS: BASOPHILS # (AUTO) 0.1 10^3/uL (0.0-0.1); BASOPHILS % (AUTO) 0.9 %; EOSINOPHILS # (AUTO) 0.1 10^3/uL (0.0-0.7); EOSINOPHILS % (AUTO) 1.9 %; HGB - HEMOGLOBIN 15.6 g/dL (12.0-16.0); LYMPHOCYTES # (AUTO) 1.8 10^3/uL (1.5-3.5); MEAN CORPUSCULAR VOLUME 93.8 fL (81.0-99.0); MEAN PLATELET VOLUME 6.9 fL (7.9-10.8); MONOCYTES # (AUTO) 0.4 10^3/uL (0.0-1.0); MONOCYTES % (AUTO) 6.4 %; NEUTROPHILS # (AUTO) 4.1 10^3/uL (1.5-6.6); NEUTROPHILS % (AUTO) 62.8 %; PLT - PLATELET COUNT 253 10^3/uL (130-450); RED BLOOD COUNT 5.03 10^6/uL (4.20-5.40); RED CELL DISTRIBUTION WIDTH 13.7 % (12.0-15.0); WHITE BLOOD COUNT 6.5 x10^3/uL (4.8-10.8)
[2018-05-07 16:40] LABS: CALCIUM 8.6 mg/dL (8.5-10.3); CREATININE 0.6 mg/dL (0.4-1.0)
[2018-05-07 16:44] LABS: CREATININE,URINE 30.2 mg/dL; TOTAL PROTEIN,URINE TIMED < 6 mg/dL
[2018-05-07 16:59] LABS: HB2 TOTAL 16.7 g/dL; HEMOGLOBIN A1C 1.31 g/dL; HEMOGLOBIN A1C % 9.3 % (4.6-6.2)
== END 2018-05-07 16:09 | disposition home or self-care (01) ==
LOC: LAB 16:08
PROVIDERS: ATTEND Nurse Practitioner Psychiatric/Mental Health
DX: F25.0 Schizoaffective disorder, bipolar type (principal); E11.42 Type 2 diabetes mellitus with diabetic polyneuropathy; E78.5 Hyperlipidemia, unspecified; Z79.4 Long term (current) use of insulin
CPT/HCPCS: 36415; 80048; 82570; 83036; 84156; 85025

== ENCOUNTER 2018-05-13 19:30 | Outpatient (CLI) | payer MEDICARE, MEDICAID | END 2018-05-13 19:31 | disposition critical access hospital (66) | LOC: EMS 19:30 | PROVIDERS: ATTEND Surgery | DX: M54.9 Dorsalgia, unspecified (principal); R56.9 Unspecified convulsions | CPT/HCPCS: A0425; A0429 ==

== ENCOUNTER 2018-05-13 19:36 | Emergency (ER) | payer MEDICARE, MEDICAID ==
--- NOTE | 2018-05-13 19:45 | ED Physician Documentation ---
History of Present Illness - Stated complaint Stated Complaint: PAIN,COLD, CAN'T SLEEP WITH POWER OUT - History obtained from History obtained from: Patient - History of Present Illness Timing: Today (38-year-old woman with multiple complaints. The power is out so she is having trouble sleeping without her BiPAP. She had a seizure versus pseudoseizure in hurt the back of her head and neck. She feels cold.) Review of Systems Ten Systems: 10 systems reviewed and negative Constitutional: reports: Chills. denies: Fever Eyes: reports: Loss of vision (Chronic) Nose: denies: Rhinorrhea / runny nose, Congestion Cardiac: denies: Chest pain / pressure, Palpitations Respiratory: denies: Dyspnea PD PAST MEDICAL HISTORY - Past Medical History Cardiovascular: High cholesterol, Other Respiratory: Asthma, Sleep apnea, CPAP use Neuro: Seizure disorder Endocrine/Autoimmune: Type 2 diabetes GI: GERD, Ulcers, Chronic diarrhea, Other SURVEILLANCE SPECIALIST: None : Incontinence HEENT: None Psych: Depression, Anxiety, Bipolar disorder, Schizophrenia, ADD/ADHD, Post traumatic stress disorder, Obsessive compulsive disorder Musculoskeletal: Osteoarthritis, Osteoporosis Derm: Other drug resistant infections - Past Surgical History Past Surgical History: Yes General: Cholecystectomy /SURVEILLANCE SPECIALIST: Tubal ligation, Other HEENT: Tonsil/Adenoidectomy, Other - Present Medications Home Medications: Ambulatory Orders Medication Instructions Recorded Confirmed Zonisamide [Zonegran] 200 mg PO BID 12/02/16 10/24/17 Metformin HCl 1,000 mg PO BIDWM 02/15/17 10/24/17 acetaZOLAMIDE [Acetazolamide] 500 mg PO BID 02/15/17 10/24/17 Atorvastatin Calcium 40 mg PO QPM 05/26/17 10/24/17 Esomeprazole Magnesium 40 mg PO QDAC 05/26/17 10/24/17 Albuterol 2.5 mg INH Q4H PRN #30 neb 11/26/17 Albuterol Sulfate [Proventil Hfa 1 - 2 puffs IH Q4H PRN #1 11/26/17 Inhaler] hfa.aer.ad QUEtiapine [SEROquel] 400 01/21/18 Trazodone HCl 400 01/21/18 Venlafaxine ER [Effexor ER] 150 01/21/18 clonazePAM [Klonopin] 1 mg ORAL QPM 01/21/18 Clozaril 25 mg ORAL BID 03/25/18 - Allergies Allergies/Adverse Reactions: Allergies Allergy/AdvReac Type Severity Reaction Status Date / Time Latex, Natural Rubber Allergy Mild Rash Verified 05/13/18 19:38 acetaminophen [From Vicodin] Allergy Hives Verified 05/13/18 19:38 hydrocodone bitartrate * Allergy Hives Verified 05/13/18 19:38 [From Vicodin] ketorolac [From Toradol] Allergy Unknown Verified 05/13/18 19:38 Penicillins Allergy Rash Verified 05/13/18 19:38 tramadol Allergy Rash Verified 05/13/18 19:38 adhesive AdvReac Intermediate chemical Verified 05/13/18 19:38 logan haloperidol [From Haldol] AdvReac Unknown Hallucinati Verified 05/13/18 19:38 ons iodine AdvReac Unknown Rash Verified 05/13/18 19:38 latex AdvReac Unknown Respiratory Verified 05/13/18 19:38 lamotrigine [From Lamictal] AdvReac Rash Verified 03/25/18 12:25 varenicline tartrate * AdvReac Hallucinati Verified 03/25/18 12:25 [From Chantix] ons steriods AdvReac Intermediate Unknown Uncoded 03/25/18 12:25 - Social History Does the pt smoke?: Yes Smoking Status: Current every day smoker Does the pt drink ETOH?: Yes Does the pt have substance abuse?: No - Immunizations Immunizations are current?: No - POLST Patient has POLST: No POLST Status: Full Code PD ED PE NORMAL - Vitals Vital signs reviewed: Yes - General General: Alert and oriented X 3, No acute distress - HEENT HEENT: PERRL, EOMI, Pharynx benign - Neck Neck: Supple, no meningeal sign, Other (Mild upper and mid neck tenderness) - Neuro Neuro: Alert and oriented X 3, facilities 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 2-12 intact Eye Opening: Spontaneous Motor: Obeys Commands Verbal: Oriented GCS Score: 15 Results - Vitals Vitals: Vital Signs - 24 hr 05/13/18 19:39 Temperature 36.3 C L Heart Rate 86 Respiratory 18 Rate Blood Pressure 114/74 O2 Saturation 96 Oxygen O2 Source Room air - Rads (name of study) CT Head Radiology: EMP read contemporaneously (Neg) Ct Cspine Radiology: EMP read contemporaneously (NAD) Departure - Departure Disposition: 01 Home, Self Care Clinical Impression: Pseudoseizure Head injuries Qualifiers: Encounter type: initial encounter Qualified Code(s): S09.90XA - Unspecified injury of head, initial encounter Neck sprain Qualifiers: Encounter type: initial encounter Qualified Code(s): S13.9XXA - Sprain of joints and ligaments of unspecified parts of neck, initial encounter Condition: Good Record reviewed to determine appropriate education?: Yes Instructions: ED Head Injury Closed Comments: Call your doctor to arrange a follow-up appointment, make the next available appointment. In the interim, return anytime if worse or if new symptoms develop.
[2018-05-13] MEDS: LORazepam 2 MG/ML VIAL IM STA (19:55)
[2018-05-13] MEDS: oxyCODONE 5 MG TABLET PO STA (19:55)
--- NOTE | 2018-05-13 20:39 | CT Report ---
Reason: head inj Procedure Date: 05/13/2018 Accession Number: [id number] / [id number] Procedure: CT - Head W/O CPT Code: FULL RESULT: EXAM: CT HEAD EXAM DATE: 05/13/2018 07:57 PM. CLINICAL HISTORY: Head inj. Seizure. Hit back of head. COMPARISON: HEAD W/O 04/13/2017 9:00 PM. TECHNIQUE: Multiaxial CT images were obtained from the foramen magnum to the vertex. Reformats: Sagittal and coronal. IV contrast: None. In accordance with CT protocol optimization, one or more of the following dose reduction techniques were utilized for this exam: automated exposure control, adjustment of mA and/or KV based on patient size, or use of iterative reconstructive technique. FINDINGS: Parenchyma: No intraparenchymal hemorrhage. No evidence of mass, midline shift, or CT findings of infarction. Mejia-white differentiation is distinct. Extraaxial Spaces: Normal for age. No subdural or epidural collections identified. Ventricles: Normal in size and position. Sinuses and Orbits: Imaged paranasal sinuses, orbits, and mastoids show no significant abnormality. Bones: No evidence of fracture or calvarial defect. Other: None. IMPRESSION: Negative nonenhanced head CT. [facility]
--- NOTE | 2018-05-13 20:45 | CT Report ---
Reason: neck inj Procedure Date: 05/13/2018 Accession Number: [id number] / [id number] Procedure: CT - Cervical Spine W/O CPT Code: FULL RESULT: EXAM: CT CERVICAL SPINE WITHOUT CONTRAST DATE: 05/13/2018 08:22 PM. HISTORY: Neck inj. Fall with trauma. Pain. COMPARISONS: HEAD W/O 04/13/2017 9:00 PM. TECHNIQUE: Thin-section axial images were acquired of the cervical spine without contrast. Post-processing: Coronal and sagittal reformats. Other: None. In accordance with CT protocol optimization, one or more of the following dose reduction techniques were utilized for this exam: automated exposure control, adjustment of mA and/or KV based on patient size, or use of iterative reconstructive technique. FINDINGS: Alignment: No subluxation or scoliosis. Bones: Negative for fracture. No destructive bony abnormality. There are moderate sized anterior disk osteophyte spurs at C4-C5 and C5-C6. Interspace Levels/Facets: There is moderate disk height loss at C6-C7 and C7-T1. There is mild disk height loss at C4-C5 and C5-C6. Musculature: Normal. No fatty atrophy. Other: The paravertebral and prevertebral soft tissues are unremarkable. No apical pneumothorax. IMPRESSION: 1. Negative for acute fracture and subluxation of the cervical spine. 2. Mild to moderate degenerative disk disease. [facility]
[2018-05-13 21:36] VITALS: BP 116/72
== END 2018-05-13 21:35 | disposition home or self-care (01) ==
LOC: EDUNIT# → ED 19:36
DX: G40.89 Other seizures (principal); S09.90XA Unspecified injury of head, initial encounter; S13.9XXA Sprain of joints and ligaments of unspecified parts of neck, initial encounter; X58.XXXA Exposure to other specified factors, initial encounter; E78.00 Pure hypercholesterolemia, unspecified; E11.9 Type 2 diabetes mellitus without complications; Z79.84 Long term (current) use of oral hypoglycemic drugs; F17.200 Nicotine dependence, unspecified, uncomplicated
CPT/HCPCS: 70450; 72125; 99283

== ENCOUNTER 2018-05-31 09:02 | Outpatient (CLI) | payer MEDICARE, MEDICAID ==
[2018-05-31 09:28] LABS: BASOPHILS # (AUTO) 0.1 10^3/uL (0.0-0.1); BASOPHILS % (AUTO) 1.3 %; EOSINOPHILS # (AUTO) 0.2 10^3/uL (0.0-0.7); EOSINOPHILS % (AUTO) 2.6 %; HGB - HEMOGLOBIN 15.4 g/dL (12.0-16.0); LYMPHOCYTES # (AUTO) 2.2 10^3/uL (1.5-3.5); MEAN CORPUSCULAR HEMOGLOBIN 31.5 pg (27.0-31.0); MEAN CORPUSCULAR HGB CONC 34.6 g/dL (32.0-36.0); MEAN PLATELET VOLUME 7.6 fL (7.9-10.8); MONOCYTES # (AUTO) 0.6 10^3/uL (0.0-1.0); MONOCYTES % (AUTO) 8.8 %; NEUTROPHILS # (AUTO) 3.5 10^3/uL (1.5-6.6); NEUTROPHILS % (AUTO) 53.3 %; PLT - PLATELET COUNT 191 10^3/uL (130-450); RED BLOOD COUNT 4.87 10^6/uL (4.20-5.40); RED CELL DISTRIBUTION WIDTH 14.3 % (12.0-15.0); WHITE BLOOD COUNT 6.5 x10^3/uL (4.8-10.8)
[2018-05-31 09:42] LABS: ALBUMIN 3.8 g/dL (3.2-5.5); ALBUMIN/GLOBULIN RATIO 1.4 (1.0-2.2); BILIRUBIN,TOTAL 0.3 mg/dL (0.2-1.0); CALCIUM 8.9 mg/dL (8.5-10.3); CREATININE 0.6 mg/dL (0.4-1.0); TOTAL PROTEIN 6.6 g/dL (6.7-8.2)
[2018-05-31 09:45] LABS: PT - PROTHROMBIN TIME 10.9 secs (9.9-12.6)
== END 2018-05-31 09:03 | disposition home or self-care (01) ==
LOC: LAB 09:02
PROVIDERS: ATTEND Physician Assistant
DX: G93.2 Benign intracranial hypertension (principal); Z51.89 Encounter for other specified aftercare; G40.909 Epilepsy, unspecified, not intractable, without status epilepticus; Z01.812 Encounter for preprocedural laboratory examination
CPT/HCPCS: 36415; 80053; 80203; 81599; 85025; 85610

== ENCOUNTER 2018-07-01 08:08 | Outpatient (CLI) | payer MEDICARE, MEDICAID ==
--- NOTE | 2018-07-01 09:57 | Ultrasound Report ---
Reason: MASS OF JOINT OF LEFT WRIST Procedure Date: 07/01/2018 Accession Number: [id number] / [id number] Procedure: US - Ext Limited Non Vascular CPT Code: FULL RESULT: EXAM: LEFT UPPER EXTREMITY ULTRASOUND - LIMITED EXAM DATE: 07/01/2018 08:36 AM. CLINICAL HISTORY: Mass of joint of left wrist. COMPARISON: WRIST LT W/O 04/29/2018 7:57 AM. TECHNIQUE: Real-time scanning was performed with static images obtained. FINDINGS: There is a solid, oval, parallel orientation, circumscribed, hypoechoic mass measuring 8 x 8 x 4 mm dorsal soft tissues superficial to the retinacular tissues, corresponding to the palpable finding and finding noted at recent MRI. Mass is mildly vascular. IMPRESSION: Nonspecific 8 mm solid mass with moderate vascularity dorsum of the wrist. Clinical and/or imaging surveillance to assess stability is a potential option to biopsy. Lesion would be amenable to biopsy/fine-needle aspiration under ultrasound guidance if clinically indicated. [facility]
== END 2018-07-01 08:09 | disposition home or self-care (01) ==
LOC: DI 08:08
PROVIDERS: ATTEND Orthopaedic Surgery Sports Medicine
DX: M25.832 Other specified joint disorders, left wrist (principal)
CPT/HCPCS: 76882

== ENCOUNTER 2018-07-03 02:55 | Outpatient (CLI) | payer MEDICARE, MEDICAID | END 2018-07-03 02:56 | disposition critical access hospital (66) | LOC: EMS 02:55 | PROVIDERS: ATTEND Surgery | DX: R69 Illness, unspecified (principal) | CPT/HCPCS: A0425; A0429 ==

== ENCOUNTER 2018-07-03 03:01 | Emergency (ER) | payer MEDICARE, MEDICAID ==
--- NOTE | 2018-07-03 03:00 | ED Physician Documentation ---
History of Present Illness - Stated complaint Stated Complaint: MALAISE, UNABLE TO SLEEP - History obtained from History obtained from: Patient, EMS - History of Present Illness Timing: Other (various timeframes) Pain level max: 8 Pain level now: 6 - Additonal information Additional information: patient is brought to the emergency department by ambulance. Patient called 911 tonight for a number of complaints that vary over timeframe and severity. Patient complains of difficulty sleeping, chest discomfort, sore neck, sore throat, generalized malaise, diffuse muscle spasms throughout entire body, visual changes (bilateral decreased vision), shortness of breath, bilateral ear pain. this patient is well known to this emergency department because of particularly frequent ED visits. She had significantly less visits last year, but had over 40 ED visits in 2017. Review of Systems Constitutional: reports: Chills, Myalgias, Fatigue, Sweats. denies: Fever Eyes: reports: Decreased vision Ears: reports: Ear pain Cardiac: reports: Chest pain / pressure. denies: Palpitations, Pedal edema Respiratory: reports: Dyspnea. denies: Cough GI: reports: Nausea, Vomiting. denies: Abdominal Pain Musculoskeletal: reports: Neck pain, Back pain, Extremity pain Neurologic: reports: Generalized weakness, Headache. denies: Focal weakness, Nu mbness PD PAST MEDICAL HISTORY - Past Medical History Past Medical History: Yes Cardiovascular: Hypertension Respiratory: Asthma, COPD Endocrine/Autoimmune: Type 2 diabetes GI: GERD Psych: Bipolar disorder - Present Medications Home Medications: Ambulatory Orders Medication Instructions Recorded Confirmed Zonisamide [Zonegran] 200 mg PO BID 12/02/16 10/24/17 Metformin HCl 1,000 mg PO BIDWM 02/15/17 10/24/17 acetaZOLAMIDE [Acetazolamide] 500 mg PO BID 02/15/17 10/24/17 Atorvastatin Calcium 40 mg PO QPM 05/26/17 10/24/17 Esomeprazole Magnesium 40 mg PO QDAC 05/26/17 10/24/17 Albuterol 2.5 mg INH Q4H PRN #30 neb 11/26/17 Albuterol Sulfate [Proventil Hfa 1 - 2 puffs IH Q4H PRN #1 11/26/17 Inhaler] hfa.aer.ad QUEtiapine [SEROquel] 400 01/21/18 Trazodone HCl 400 01/21/18 Venlafaxine ER [Effexor ER] 150 01/21/18 clonazePAM [Klonopin] 1 mg ORAL QPM 01/21/18 Clozaril 25 mg ORAL BID 03/25/18 Prochlorperazine [Compazine] 10 mg PO Q6H PRN #10 tablet 07/03/18 - Allergies Allergies/Adverse Reactions: Allergies Allergy/AdvReac Type Severity Reaction Status Date / Time Latex, Natural Rubber Allergy Mild Rash Verified 07/03/18 03:09 acetaminophen [From Vicodin] Allergy Hives Verified 07/03/18 03:09 hydrocodone bitartrate * Allergy Hives Verified 07/03/18 03:09 [From Vicodin] ketorolac [From Toradol] Allergy Unknown Verified 07/03/18 03:09 Penicillins Allergy Rash Verified 07/03/18 03:09 tramadol Allergy Rash Verified 07/03/18 03:09 adhesive AdvReac Intermediate chemical Verified 07/03/18 03:09 logan haloperidol [From Haldol] AdvReac Unknown Hallucinati Verified 07/03/18 03:09 ons iodine AdvReac Unknown Rash Verified 07/03/18 03:09 latex AdvReac Unknown Respiratory Verified 07/03/18 03:09 lamotrigine [From Lamictal] AdvReac Rash Verified 07/03/18 03:09 varenicline tartrate * AdvReac Hallucinati Verified 07/03/18 03:09 [From Chantix] ons steriods AdvReac Intermediate Unknown Uncoded 07/03/18 03:09 PD ED PE NORMAL - Vitals Vital signs reviewed: Yes - General General: Alert and oriented X 3, Well developed/nourished, Other (anxious, hyperkinetic at times, but also suddenly stops responding early in HPI for 5-10 seconds despite stable vital signs, normal respiratory rate, RRR with strong pulses; she then suddenly wakes and resumes discussion) - HEENT HEENT: Atraumatic, PERRL, EOMI, Ears normal, Moist mucous membranes, Pharynx benign - Neck Neck: Supple, no meningeal sign - Cardiac Cardiac: RRR, No murmur - Respiratory Respiratory: No respiratory distress, Clear bilaterally - Abdomen Abdomen: Soft, Non tender - Derm Derm: Normal color, Warm and dry - Extremities Extremities: No edema - Neuro Neuro: Alert and oriented X 3, 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 pianos and organs 2-12 intact, No motor deficit, No sensory deficit, Normal speech Eye Opening: Spontaneous Motor: Obeys Commands Verbal: Oriented GCS Score: 15 Results - Vitals Vitals: Oxygen O2 Source Room air - Labs Labs: Laboratory Tests 07/03/18 07/03/18 07/03/18 03:25 04:05 04:05 WBC 10.1 RBC 5.28 Hgb 16.2 H Hct 47.0 MCV 89.1 MCH 30.8 MCHC 34.5 RDW 13.5 Plt Count 291 MPV 7.6 L Neut # (Auto) 6.8 H Lymph # (Auto) 2.2 [place] # (Auto) 0.7 Eos # (Auto) 0.2 Baso # (Auto) 0.2 H Absolute Nucleated RBC 0.00 Nucleated RBC % 0.0 Sodium 133 L Potassium 3.3 L Chloride 107 Carbon Dioxide 18 L Anion Gap 8.0 BUN 13 Creatinine 0.5 Estimated GFR (MDRD) 140 Glucose 243 H Calcium 8.8 Total Bilirubin 0.6 AST 12 ALT 14 Alkaline Phosphatase 65 Total Protein 7.5 Albumin 4.4 Globulin 3.1 Albumin/Globulin Ratio 1.4 Lipase 32 Influenza A (Rapid) Negative Influenza B (Rapid) Negative PD MEDICAL DECISION MAKING - ED course Complexity details: reviewed old records, reviewed results, re-evaluated patient, considered differential, d/w patient ED course: on reevaluation after IV fluids, and PO compazine and valium, she is asleep, arouses to gentle tactile stimulus (shoulder tapping), reports feeling si gnificantly improved. of note, she c/o pain during ED stay but declined pain medication. also, at time of discharge planning, she declined valium rx (for sleep, spasms, anxiety). she says she is worried she will take incorrect doses due to her vision and memory issues. NAD at time of disposition Departure - Departure Disposition: 01 Home, Self Care Clinical Impression: Generalized muscle ache Condition: Good Instructions: ED Acute Pain UKO, ED Symptoms No Dx Follow-Up: LOLA PERSON [Primary Care Provider] - Within 3 Days Prescriptions: Prochlorperazine [Compazine] 10 mg PO Q6H PRN #10 tablet PRN Reason: Nausea / Vomiting Discharge Date/Time: 07/03/18 08:32
[2018-07-03] MEDS ORDERED: PROCHLORPERAZINE 5 MG TABLET PO STA (03:44)
[2018-07-03] MEDS ORDERED: diazePAM 5 MG TABLET PO STA (03:44)
[2018-07-03] MEDS ORDERED: MAG HYDROX/AL HYDROX/SIMETH 30 ML UDC PO STA (03:44)
[2018-07-03] MEDS ORDERED: PANTOPRAZOLE 40 MG TABLET PO STA (03:44)
[2018-07-03] MEDS ORDERED: SODIUM CHLORIDE 0.9% 1,000 ML IV STA (04:05)
[2018-07-03 04:17] LABS: BASOPHILS # (AUTO) 0.2 10^3/uL (0.0-0.1); BASOPHILS % (AUTO) 2.3 %; EOSINOPHILS # (AUTO) 0.2 10^3/uL (0.0-0.7); EOSINOPHILS % (AUTO) 1.7 %; HGB - HEMOGLOBIN 16.2 g/dL (12.0-16.0); LYMPHOCYTES # (AUTO) 2.2 10^3/uL (1.5-3.5); LYMPHOCYTES % (AUTO) 21.4 %; MEAN CORPUSCULAR HEMOGLOBIN 30.8 pg (27.0-31.0); MEAN CORPUSCULAR HGB CONC 34.5 g/dL (32.0-36.0); MEAN CORPUSCULAR VOLUME 89.1 fL (81.0-99.0); MEAN PLATELET VOLUME 7.6 fL (7.9-10.8); MONOCYTES # (AUTO) 0.7 10^3/uL (0.0-1.0); MONOCYTES % (AUTO) 7.2 %; NEUTROPHILS # (AUTO) 6.8 10^3/uL (1.5-6.6); NEUTROPHILS % (AUTO) 67.4 %; PLT - PLATELET COUNT 291 10^3/uL (130-450); RED BLOOD COUNT 5.28 10^6/uL (4.20-5.40); RED CELL DISTRIBUTION WIDTH 13.5 % (12.0-15.0); WHITE BLOOD COUNT 10.1 x10^3/uL (4.8-10.8)
[2018-07-03 04:29] LABS: ALBUMIN 4.4 g/dL (3.2-5.5); ALBUMIN/GLOBULIN RATIO 1.4 (1.0-2.2); BILIRUBIN,TOTAL 0.6 mg/dL (0.2-1.0); CALCIUM 8.8 mg/dL (8.5-10.3); CREATININE 0.5 mg/dL (0.4-1.0); TOTAL PROTEIN 7.5 g/dL (6.7-8.2)
[2018-07-03 07:58] VITALS: BP 123/83
== END 2018-07-03 08:32 | disposition home or self-care (01) ==
LOC: EDUNIT# → ED 03:01
DX: M79.10 Myalgia, unspecified site (principal); I10 Essential (primary) hypertension; E11.9 Type 2 diabetes mellitus without complications; Z79.84 Long term (current) use of oral hypoglycemic drugs
CPT/HCPCS: 36415; 80053; 83690; 85025; 87275; 87276; 96360; 99283; A9270

== ENCOUNTER 2018-07-14 10:25 | Outpatient (CLI) | payer MEDICARE, MEDICAID ==
[2018-07-14 12:53] LABS: BASOPHILS # (AUTO) 0.1 10^3/uL (0.0-0.1); BASOPHILS % (AUTO) 0.7 %; EOSINOPHILS # (AUTO) 0.2 10^3/uL (0.0-0.7); EOSINOPHILS % (AUTO) 2.4 %; HGB - HEMOGLOBIN 15.9 g/dL (12.0-16.0); LYMPHOCYTES # (AUTO) 2.4 10^3/uL (1.5-3.5); LYMPHOCYTES % (AUTO) 27.5 %; MEAN CORPUSCULAR HEMOGLOBIN 30.4 pg (27.0-31.0); MEAN CORPUSCULAR HGB CONC 33.4 g/dL (32.0-36.0); MEAN CORPUSCULAR VOLUME 90.9 fL (81.0-99.0); MEAN PLATELET VOLUME 7.9 fL (7.9-10.8); MONOCYTES # (AUTO) 0.6 10^3/uL (0.0-1.0); MONOCYTES % (AUTO) 6.5 %; NEUTROPHILS # (AUTO) 5.4 10^3/uL (1.5-6.6); NEUTROPHILS % (AUTO) 62.9 %; PLT - PLATELET COUNT 298 10^3/uL (130-450); RED BLOOD COUNT 5.25 10^6/uL (4.20-5.40); RED CELL DISTRIBUTION WIDTH 13.8 % (12.0-15.0); WHITE BLOOD COUNT 8.6 x10^3/uL (4.8-10.8)
[2018-07-14 13:19] LABS: HB2 TOTAL 17.4 g/dL; HEMOGLOBIN A1C 1.29 g/dL; HEMOGLOBIN A1C % 8.9 % (4.6-6.2)
[2018-07-14 13:21] LABS: ALBUMIN 4.1 g/dL (3.2-5.5); ALBUMIN/GLOBULIN RATIO 1.2 (1.0-2.2); ALKALINE PHOSPHATASE 62 IU/L (42-121); ALT ALANINE AMINOTRANSFERASE 17 IU/L (10-60); AST ASPARTATE AMINOTRANSFERASE 14 IU/L (10-42); BILIRUBIN,TOTAL 0.4 mg/dL (0.2-1.0); BUN - BLOOD UREA NITROGEN 12 mg/dL (6-20); CARBON DIOXIDE - CO2 20 mmol/L (21-32); CHLORIDE 105 mmol/L (101-111); CHOL/HDL RATIO 5.5 (<4.4); CHOLESTEROL 171 mg/dL; CREATININE 0.6 mg/dL (0.4-1.0); GFR - MDRD 113 (>89); GLUCOSE 219 mg/dL (70-100); HDL CHOLESTEROL 31 mg/dL; SODIUM 136 mmol/L (135-145); TOTAL PROTEIN 7.5 g/dL (6.7-8.2)
[2018-07-14 13:44] LABS: CREATININE,URINE 125.1 mg/dL; MICROALBUM/CREATININE RATIO,UR 37.6 ug/mg (<30.0); MICROALBUMIN,URINE 4.7 mg/dL (0-300.0)
[2018-07-14 14:08] LABS: LDL CHOLESTEROL,DIRECT 86 mg/dL; LDLD/HDL RATIO 2.8 (<4.4)
== END 2018-07-14 10:26 | disposition home or self-care (01) ==
LOC: LAB.WCP 10:25
PROVIDERS: ATTEND Family Medicine
DX: E11.9 Type 2 diabetes mellitus without complications (principal); F25.0 Schizoaffective disorder, bipolar type; G43.909 Migraine, unspecified, not intractable, without status migrainosus
CPT/HCPCS: 36415; 80053; 80061; 82043; 82570; 83036; 83721; 84443; 85025

== ENCOUNTER 2018-07-18 21:09 | Outpatient (CLI) | payer MEDICARE, MEDICAID | END 2018-07-18 21:10 | disposition critical access hospital (66) | LOC: EMS 21:09 | PROVIDERS: ATTEND Surgery | DX: R10.32 Left lower quadrant pain (principal) | CPT/HCPCS: A0425; A0429 ==

== ENCOUNTER 2018-07-18 21:15 | Emergency (ER) | payer MEDICARE, MEDICAID ==
[2018-07-18] MEDS ORDERED: HYDROmorphone 1 MG/ML CARPUJECT IVP STA (21:31)
[2018-07-18] MEDS ORDERED: ONDANSETRON 4 MG/2 ML VIAL IVP STA (21:31)
--- NOTE | 2018-07-18 21:44 | ED Physician Documentation ---
PD HPI ABD PAIN - Stated complaint Stated Complaint: L SIDE ABD PAIN - Chief complaint Chief Complaint: Abd Pain - History obtained from History obtained from: Patient, EMS - History of Present Illness Timing - onset: Today Timing - duration: Hours Timing - details: Abrupt onset, Still present Quality: Sharp, Pain Location: LUQ Radiation: Left flank Improved by: Other (nothing) Worsened by: Position, Palpation, Other (undulation) Associated symptoms: Nausea. No: Vomiting Similar symptoms before: Has not had sx before Recently seen: Emergency Dept - Additional information Additional information: 38-year-old female with a history of schizophrenia and diabetes mellitus well- known to the emergency department with over 40 visits and 2017 has developed acute left flank and lower abdominal pain today. She is called the ambulance with unrelenting pain that has undulations and peaks. Review of Systems Constitutional: denies: Fever Eyes: denies: Decreased vision Ears: denies: Ear pain Nose: denies: Congestion Throat: denies: Sore throat Cardiac: denies: Chest pain / pressure, Palpitations Respiratory: denies: Dyspnea, Cough GI: reports: Abdominal Pain, Nausea : reports: Dysuria, Frequency Skin: denies: Rash Musculoskeletal: reports: Back pain. 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: None : Incontinence HEENT: None Psych: Bipolar disorder Musculoskeletal: Osteoarthritis, Osteoporosis Derm: Other drug resistant infections - Past Surgical History Past Surgical History: Yes General: Cholecystectomy /VFX ARTIST: Tubal ligation, Other HEENT: Tonsil/Adenoidectomy, Other - Present Medications Home Medications: Ambulatory Orders Medication Instructions Recorded Confirmed RX: Zonisamide [Zonegran] 200 mg PO BID 12/02/16 10/24/17 RX: Metformin HCl 1,000 mg PO BIDWM 02/15/17 10/24/17 RX: acetaZOLAMIDE [Acetazolamide] 500 mg PO BID 02/15/17 10/24/17 RX: Atorvastatin Calcium 40 mg PO QPM 05/26/17 10/24/17 RX: Esomeprazole Magnesium 40 mg PO QDAC 05/26/17 10/24/17 RX: Albuterol 2.5 mg INH Q4H PRN #30 neb 07/05/18 RX: Albuterol Sulfate [Proventil 1 - 2 puffs IH Q4H PRN #1 11/26/17 Hfa Inhaler] hfa.aer.ad - Allergies Allergies/Adverse Reactions: Allergies Allergy/AdvReac Type Severity Reaction Status Date / Time Latex, Natural Rubber Allergy Mild Rash Verified 07/03/18 03:09 acetaminophen [From Vicodin] Allergy Hives Verified 07/03/18 03:09 hydrocodone bitartrate * Allergy Hives Verified 07/03/18 03:09 [From Vicodin] Penicillins Allergy Rash Verified 07/03/18 03:09 tramadol Allergy Rash Verified 07/03/18 03:09 adhesive AdvReac Intermediate chemical Verified 07/03/18 03:09 logan haloperidol [From Haldol] AdvReac Unknown Hallucinati Verified 07/03/18 03:09 ons iodine AdvReac Unknown Rash Verified 07/03/18 03:09 latex AdvReac Unknown Respiratory Verified 07/03/18 03:09 lamotrigine [From Lamictal] AdvReac Rash Verified 07/03/18 03:09 varenicline tartrate * AdvReac Hallucinati Verified 07/03/18 03:09 [From Chantix] ons steriods AdvReac Intermediate Unknown Uncoded 07/03/18 03:09 - Social History Does the pt smoke?: Yes Smoking Status: Current every day smoker Does the pt drink ETOH?: Yes Does the pt have substance abuse?: No - Immunizations Immunizations are current?: No - POLST Patient has POLST: No POLST Status: Full Code PD ED PE NORMAL - Vitals Vital signs reviewed: Yes (tachy and hypertensive) - General General: Well developed/nourished, Other (crying in pain and with obvious peaks in pain periodically ) - HEENT HEENT: Atraumatic, PERRL, EOMI - Neck Neck: Supple, no meningeal sign - Cardiac Cardiac: No murmur, Other (tachy) - Respiratory Respiratory: No respiratory distress - Abdomen Abdomen: Soft, Other (non-reproducible tenderness to the LLQ and left flank. ) - Back Back: No spinal TTP, Other (CVA is non-reproducibly tender. ) - Derm Derm: Normal color, Warm and dry, No rash - Extremities Extremities: No deformity, No edema - Neuro Neuro: No motor deficit, No sensory deficit Eye Opening: Spontaneous Motor: Obeys Commands Verbal: Oriented GCS Score: 15 - Psych Psych: Other (mood is painful and the affect is labile ) Results - Vitals Vitals: Vital Signs - 24 hr 07/18/18 07/19/18 21:18 00:18 Temperature 36.8 C Heart Rate 111 H 98 Respiratory 16 16 Rate Blood Pressure 122/102 H 125/95 H O2 Saturation 100 100 Oxygen O2 Source Room air - Labs Labs: Laboratory Tests 07/18/18 07/18/18 07/18/18 21:42 21:42 21:42 WBC 9.9 RBC 4.97 Hgb 15.4 Hct 44.9 MCV 90.3 MCH 31.1 H MCHC 34.4 RDW 13.8 Plt Count 267 MPV 7.4 L Neut # (Auto) 5.8 Lymph # (Auto) 3.2 [place] # (Auto) 0.6 Eos # (Auto) 0.2 Baso # (Auto) 0.1 Absolute Nucleated RBC 0.00 Nucleated RBC % 0.0 Sodium 136 Potassium 3.3 L Chloride 104 Carbon Dioxide 22 Anion Gap 10.0 BUN 10 Creatinine 0.5 Estimated GFR (MDRD) 140 Glucose 297 H Calcium 9.5 Total Bilirubin 0.4 AST 14 ALT 28 Alkaline Phosphatase 70 Troponin I < 0.04 Total Protein 7.3 Albumin 4.1 Globulin 3.2 Albumin/Globulin Ratio 1.3 Lipase 31 Urine Color Urine Clarity Urine pH Ur Specific [place] Urine Protein Urine Glucose (UA) Urine Ketones Urine Occult Blood Urine Nitrite Urine Bilirubin Urine Urobilinogen Ur Leukocyte Esterase Urine RBC Urine WBC Ur Squamous Epith Cells Urine Bacteria Ur Microscopic Review Urine Culture Comments Urine HCG, Qual 07/18/18 22:05 WBC RBC Hgb Hct MCV MCH MCHC RDW Plt Count MPV Neut # (Auto) Lymph # (Auto) [place] # (Auto) Eos # (Auto) Baso # (Auto) Absolute Nucleated RBC Nucleated RBC % Sodium Potassium Chloride Carbon Dioxide Anion Gap BUN Creatinine Estimated GFR (MDRD) Glucose Calcium Total Bilirubin AST ALT Alkaline Phosphatase Troponin I Total Protein Albumin Globulin Albumin/Globulin Ratio Lipase Urine Color YELLOW Urine Clarity CLEAR Urine pH 6.5 Ur Specific [place] 1.020 Urine Protein NEGATIVE Urine Glucose (UA) 500 H Urine Ketones NEGATIVE Urine Occult Blood NEGATIVE Urine Nitrite NEGATIVE Urine Bilirubin NEGATIVE Urine Urobilinogen 0.2 (NORMAL) Ur Leukocyte Esterase TRACE H Urine RBC None Seen Urine WBC 0-3 Ur Squamous Epith Cells MOD Squamous H Urine Bacteria Few Ur Microscopic Review INDICATED Urine Culture Comments NOT INDICATED Urine HCG, Qual NEGATIVE - Rads (name of study) CT abd/pel without Radiology: Prelim report reviewed (Impression: 1. Stable small nonobstructing left intrarenal stones with no ureteral stones or obstruction. 2. Stable enlarged mixed density left ovary. 3. Cholecystectomy.), EMP read indepedently, See rad report Procedures - Bedside sono Bedside sono by EMP: With use of bedside ultrasound the left kidney is imaged it is sonographically nontender and there is no evidence of hydronephrosis. - IVC sono (time) 2129 Bedside IVC sono: IVC measures (cm) (1.82), Euvolemia PD MEDICAL DECISION MAKING - ED course Complexity details: reviewed old records, reviewed results, re-evaluated patient, considered differential, d/w patient ED course: 38-year-old female with extensive past medical history has acute onset of left flank pain and no reproducible tenderness on examination. She has a history of renal lithiasis and a CT scan of the abdomen pelvis is obtained which does not demonstrate any ureteral lithiasis but she does have 2 small non-obstructing stones in the left kidney. There are no other explanations for the patient's left upper quadrant pain. She is administered Dilaudid intravenously with improvement in her pain. She is diagnosed with flank pain of uncertain etiology. Departure - Departure Disposition: 01 Home, Self Care Clinical Impression: Flank pain Condition: Stable Instructions: ED Flank Pain Uncertain Cause Follow-Up: Miki Mcdaniel MD [Primary Care Provider] - Discharge Date/Time: 07/19/18 01:34
[2018-07-18 21:49] LABS: BASOPHILS # (AUTO) 0.1 10^3/uL (0.0-0.1); BASOPHILS % (AUTO) 0.7 %; EOSINOPHILS # (AUTO) 0.2 10^3/uL (0.0-0.7); EOSINOPHILS % (AUTO) 1.9 %; HGB - HEMOGLOBIN 15.4 g/dL (12.0-16.0); LYMPHOCYTES # (AUTO) 3.2 10^3/uL (1.5-3.5); LYMPHOCYTES % (AUTO) 32.4 %; MEAN CORPUSCULAR HEMOGLOBIN 31.1 pg (27.0-31.0); MEAN CORPUSCULAR HGB CONC 34.4 g/dL (32.0-36.0); MEAN CORPUSCULAR VOLUME 90.3 fL (81.0-99.0); MEAN PLATELET VOLUME 7.4 fL (7.9-10.8); MONOCYTES # (AUTO) 0.6 10^3/uL (0.0-1.0); MONOCYTES % (AUTO) 6.2 %; NEUTROPHILS # (AUTO) 5.8 10^3/uL (1.5-6.6); NEUTROPHILS % (AUTO) 58.8 %; PLT - PLATELET COUNT 267 10^3/uL (130-450); RED BLOOD COUNT 4.97 10^6/uL (4.20-5.40); RED CELL DISTRIBUTION WIDTH 13.8 % (12.0-15.0); WHITE BLOOD COUNT 9.9 x10^3/uL (4.8-10.8)
[2018-07-18 22:00] LABS: ALBUMIN 4.1 g/dL (3.2-5.5); ALBUMIN/GLOBULIN RATIO 1.3 (1.0-2.2); BILIRUBIN,TOTAL 0.4 mg/dL (0.2-1.0); CALCIUM 9.5 mg/dL (8.5-10.3); CREATININE 0.5 mg/dL (0.4-1.0); TOTAL PROTEIN 7.3 g/dL (6.7-8.2)
[2018-07-18 22:15] LABS: BILIRUBIN,URINE NEGATIVE (NEGATIVE); GLUCOSE, URINE (UA) 500 mg/dL (NEGATIVE); KETONES,URINE (UA) NEGATIVE (NEGATIVE); LEUKOCYTE ESTERASE, URINE TRACE (NEGATIVE); NITRITE,URINE NEGATIVE (NEGATIVE); OCCULT BLOOD,URINE NEGATIVE (NEGATIVE); PH,URINE 6.5 PH (5.0-7.5); PROTEIN,URINE NEGATIVE (NEGATIVE); UROBILINOGEN,URINE 0.2 (NORMAL) E.U./dL (NORMAL)
[2018-07-18 22:16] LABS: CLARITY,URINE CLEAR (CLEAR); HCG UR QUAL NEGATIVE
[2018-07-18 22:23] LABS: BACTERIA,URINE Few /HPF (None Seen); RBC,URINE None Seen /HPF (0-5); SQUAMOUS EPITHELIAL CELL,UR MOD Squamous (<= Few)
--- NOTE | 2018-07-18 22:50 | CT Report ---
Reason: L flank and LLQ abd pain Procedure Date: 07/18/2018 Accession Number: [id number] / [id number] Procedure: CT - Abdomen/Pelvis WO CPT Code: FULL RESULT: EXAM: CT ABDOMEN AND PELVIS (CT KUB) EXAM DATE: 07/18/2018 10:23 PM. CLINICAL HISTORY: Left flank pain and left lower quadrant pain. COMPARISONS: ABDOMEN/PELVIS W/O 10/24/2017 8:27 PM. TECHNIQUE: Routine axial helical CT imaging was performed through the abdomen and pelvis without IV contrast. Reconstructions: Coronal and sagittal. In accordance with CT protocol optimization, one or more of the following dose reduction techniques were utilized for this exam: automated exposure control, adjustment of mA and/or KV based on patient size, or use of iterative reconstructive technique. FINDINGS: Lung Bases: Unremarkable. Right Kidney/Ureter: No stones, hydronephrosis, or hydroureter. No perinephric fat stranding. Left Kidney/Ureter: Nonobstructing intrarenal stones. No ureteral stones, hydronephrosis, or hydroureter. No perinephric fat stranding. Other Solid Organs: Noncontrast images of the solid organs are grossly unremarkable. Gallbladder/Bile Ducts: Cholecystectomy. No dilated ducts.. Peritoneal Cavity: No free fluid, free air or liliane adenopathy. Bowel is grossly unremarkable. Normal appendix noted. Pelvic Organs: Enlarged mixed density left ovary again noted. Tubal ligation clips noted. Right ovary, uterus, and bladder are unremarkable. Vasculature: Unremarkable. Other: Minimal S-shaped scoliosis. Lower lumbar degenerative disk disease. IMPRESSION: 1. Stable small nonobstructing left intrarenal stones with no ureteral stones or obstruction. 2. Stable enlarged mixed density left ovary. 3. Cholecystectomy. RADIA
[2018-07-19 00:19] VITALS: BP 125/95
== END 2018-07-19 01:34 | disposition home or self-care (01) ==
LOC: EDUNIT# → ED 21:15
DX: N20.0 Calculus of kidney (principal); I10 Essential (primary) hypertension; E11.9 Type 2 diabetes mellitus without complications; Z79.84 Long term (current) use of oral hypoglycemic drugs; F17.200 Nicotine dependence, unspecified, uncomplicated
CPT/HCPCS: 36415; 74176; 80053; 81001; 81025; 83690; 84484; 85025; 96374; 99284; J1170; 81003; 87086

== ENCOUNTER 2018-08-12 07:57 | Outpatient (CLI) | payer MEDICARE, MEDICAID ==
[2018-08-12 08:36] LABS: ALBUMIN 4.2 g/dL (3.2-5.5); ALBUMIN/GLOBULIN RATIO 1.5 (1.0-2.2); BILIRUBIN,TOTAL 0.4 mg/dL (0.2-1.0); CALCIUM 8.8 mg/dL (8.5-10.3); CREATININE 0.5 mg/dL (0.4-1.0)
== END 2018-08-12 07:58 | disposition home or self-care (01) ==
LOC: LAB 07:57
PROVIDERS: ATTEND Physician Assistant
DX: Z79.899 Other long term (current) drug therapy (principal)
CPT/HCPCS: 36415; 80053

== ENCOUNTER 2018-08-18 08:00 | Outpatient (CLI) | payer MEDICARE, MEDICAID ==
[2018-08-18 19:55] LABS: CALCIUM 8.8 mg/dL (8.5-10.3); CREATININE 0.4 mg/dL (0.4-1.0); MAGNESIUM 1.9 mg/dL (1.7-2.8)
== END 2018-08-18 23:59 | disposition home or self-care (01) ==
LOC: LAB.WCP 08:00
PROVIDERS: ATTEND Physician Assistant
DX: E87.6 Hypokalemia (principal); B37.0 Candidal stomatitis
CPT/HCPCS: 36415; 80048; 83735; 87389

== ENCOUNTER 2018-08-18 19:05 | Outpatient (CLI) | payer MEDICARE, MEDICAID | END 2018-08-18 19:06 | disposition critical access hospital (66) | LOC: EMS 19:05 | PROVIDERS: ATTEND Surgery | DX: R10.9 Unspecified abdominal pain (principal); H54.8 Legal blindness, as defined in USA | CPT/HCPCS: A0425; A0429 ==

== ENCOUNTER 2018-08-18 19:10 | Emergency (ER) | payer MEDICARE, MEDICAID ==
[2018-08-18 19:51] LABS: BILIRUBIN,URINE NEGATIVE (NEGATIVE); GLUCOSE, URINE (UA) NEGATIVE (NEGATIVE); KETONES,URINE (UA) NEGATIVE (NEGATIVE); LEUKOCYTE ESTERASE, URINE NEGATIVE (NEGATIVE); NITRITE,URINE NEGATIVE (NEGATIVE); OCCULT BLOOD,URINE NEGATIVE (NEGATIVE); PROTEIN,URINE NEGATIVE (NEGATIVE); UROBILINOGEN,URINE 0.2 (NORMAL) E.U./dL (NORMAL)
[2018-08-18 19:53] LABS: CLARITY,URINE CLEAR (CLEAR); HCG UR QUAL NEGATIVE
[2018-08-18 20:20] LABS: BASOPHILS # (AUTO) 0.1 10^3/uL (0.0-0.1); BASOPHILS % (AUTO) 0.9 %; EOSINOPHILS # (AUTO) 0.2 10^3/uL (0.0-0.7); EOSINOPHILS % (AUTO) 2.4 %; HGB - HEMOGLOBIN 14.3 g/dL (12.0-16.0); LYMPHOCYTES % (AUTO) 33.9 %; MEAN CORPUSCULAR HEMOGLOBIN 31.8 pg (27.0-31.0); MEAN CORPUSCULAR HGB CONC 35.8 g/dL (32.0-36.0); MEAN PLATELET VOLUME 7.3 fL (7.9-10.8); MONOCYTES # (AUTO) 0.5 10^3/uL (0.0-1.0); MONOCYTES % (AUTO) 6.3 %; NEUTROPHILS # (AUTO) 4.9 10^3/uL (1.5-6.6); NEUTROPHILS % (AUTO) 56.5 %; PLT - PLATELET COUNT 259 10^3/uL (130-450); RED BLOOD COUNT 4.48 10^6/uL (4.20-5.40); RED CELL DISTRIBUTION WIDTH 13.6 % (12.0-15.0); WHITE BLOOD COUNT 8.7 x10^3/uL (4.8-10.8)
[2018-08-18 20:38] LABS: ALBUMIN 4.2 g/dL (3.2-5.5); ALBUMIN/GLOBULIN RATIO 1.4 (1.0-2.2); ALKALINE PHOSPHATASE 60 IU/L (42-121); ALT ALANINE AMINOTRANSFERASE 13 IU/L (10-60); AST ASPARTATE AMINOTRANSFERASE < 10 IU/L (10-42); BILIRUBIN,TOTAL 0.3 mg/dL (0.2-1.0); BUN - BLOOD UREA NITROGEN 9 mg/dL (6-20); CALCIUM 9.3 mg/dL (8.5-10.3); CARBON DIOXIDE - CO2 20 mmol/L (21-32); CHLORIDE 108 mmol/L (101-111); CREATININE 0.4 mg/dL (0.4-1.0); GFR - MDRD 181 (>89); GLUCOSE 168 mg/dL (70-100); LIPASE 31 U/L (22-51); SODIUM 138 mmol/L (135-145); TOTAL PROTEIN 7.1 g/dL (6.7-8.2)
[2018-08-18] MEDS ORDERED: KETOROLAC 60 MG/2 ML VIAL IM STA (20:54)
--- NOTE | 2018-08-18 20:58 | ED Physician Documentation ---
PD HPI ABD PAIN - Stated complaint Stated Complaint: LLQ PAIN - Chief complaint Chief Complaint: Abd Pain - History obtained from History obtained from: Patient, EMS - History of Present Illness Timing - onset: How many days ago (2) Timing - duration: Days (2) Timing - details: Gradual onset Pain level max: 10 Pain level now: 10 Quality: Aching, Pain Location: LLQ Radiation: No: Chest, , Lower back, Left flank, Left shoulder, Right flank, Right shoulder, Upper back Improved by: No: Eating, Laying still, Vomiting, BM, Position, Meds Worsened by: Moving, Palpation. No: Eating, Breathing, Position Associated symptoms: No: Fever, Nausea, Vomiting, Hematemesis, Diarrhea, Constipation, Melena, Hematochezia, Dysuria, Hematuria, Chest pain, Dizzy, Near syncope / syncope, Loss of appetite, Weight loss, Vaginal bleeding, Vaginal dc - Additional information Additional information: states LLQ pain worsening x 2 days. States started after sexual activity 2 days ago and now worse today. No vaginal bleeding, no vaginal discharge. 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 HEENT: None Psych: Bipolar disorder Musculoskeletal: Osteoarthritis, Osteoporosis Derm: Other drug resistant infections - Past Surgical History Past Surgical History: Yes General: Cholecystectomy /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: Tubal ligation, Other HEENT: Tonsil/Adenoidectomy, Other - Present Medications Home Medications: Ambulatory Orders Medication Instructions Recorded Confirmed Zonisamide [Zonegran] 200 mg PO BID 12/02/16 10/24/17 Metformin HCl 1,000 mg PO BIDWM 02/15/17 10/24/17 acetaZOLAMIDE [Acetazolamide] 500 mg PO BID 02/15/17 10/24/17 Atorvastatin Calcium 40 mg PO QPM 01/02/18 06/02/18 Esomeprazole Magnesium 40 mg PO QDAC 05/26/17 10/24/17 Albuterol 2.5 mg INH Q4H PRN #30 neb 11/26/17 Albuterol Sulfate [Proventil Hfa 1 - 2 puffs IH Q4H PRN #1 11/26/17 Inhaler] [email or web address] Meloxicam [Mobic] 15 mg PO DAILY PRN #20 tablet 08/19/18 - Allergies Allergies/Adverse Reactions: Allergies Allergy/AdvReac Type Severity Reaction Status Date / Time Latex, Natural Rubber Allergy Mild Rash Verified 08/18/18 19:20 acetaminophen [From Vicodin] Allergy Hives Verified 08/18/18 19:20 hydrocodone bitartrate * Allergy Hives Verified 08/18/18 19:20 [From Vicodin] Penicillins Allergy Rash Verified 08/18/18 19:20 tramadol Allergy Rash Verified 08/18/18 19:20 adhesive AdvReac Intermediate chemical Verified 08/18/18 19:20 logan haloperidol [From Haldol] AdvReac Unknown Hallucinati Verified 08/18/18 19:20 ons iodine AdvReac Unknown Rash Verified 08/18/18 19:20 latex AdvReac Unknown Respiratory Verified 08/18/18 19:20 lamotrigine [From Lamictal] AdvReac Rash Verified 08/18/18 19:20 varenicline tartrate * AdvReac Hallucinati Verified 08/18/18 19:20 [From Chantix] ons steriods AdvReac Intermediate Unknown Uncoded 08/18/18 19:20 - Social History Does the pt smoke?: Yes Smoking Status: Current every day smoker Does the pt drink ETOH?: Yes Does the pt have substance abuse?: No - Immunizations Immunizations are current?: No - POLST Patient has POLST: No POLST Status: Full Code PD ED PE NORMAL - Vitals Vital signs reviewed: Yes - General General: Alert and oriented X 3, No acute distress - HEENT HEENT: Moist mucous membranes - Neck Neck: Supple, no meningeal sign - Cardiac Cardiac: RRR, Strong equal pulses - Respiratory Respiratory: No respiratory distress, Clear bilaterally - Abdomen Abdomen: Soft, Non distended, Other (Tender to palpation left lower quadrant. No peritoneal signs.) - Female Female : Pt declined - Back Back: No CVA TTP - Derm Derm: Warm and dry, No rash - Extremities Extremities: No calf tenderness / cord - Neuro Neuro: Alert and oriented X 3 Results - Vitals Vitals: Vital Signs - 24 hr 08/18/18 08/18/18 08/18/18 19:17 21:20 23:00 Temperature 36.2 C L Heart Rate 88 63 61 Respiratory 18 14 15 Rate Blood Pressure 106/71 127/71 115/70 O2 Saturation 100 91 L 91 L 08/19/18 00:38 Temperature 36.2 C L Heart Rate 68 Respiratory 16 Rate Blood Pressure 108/82 H O2 Saturation 98 Oxygen O2 Source Room air - Labs Labs: Laboratory Tests 08/18/18 08/18/18 08/18/18 19:40 20:11 20:11 WBC 8.7 RBC 4.48 Hgb 14.3 Hct 39.9 MCV 89.0 MCH 31.8 H MCHC 35.8 RDW 13.6 Plt Count 259 MPV 7.3 L Neut # (Auto) 4.9 Lymph # (Auto) 3.0 [place] # (Auto) 0.5 Eos # (Auto) 0.2 Baso # (Auto) 0.1 Absolute Nucleated RBC 0.00 Nucleated RBC % 0.0 Sodium 138 Potassium 3.5 Chloride 108 Carbon Dioxide 20 L Anion Gap 10.0 BUN 9 Creatinine 0.4 Estimated GFR (MDRD) 181 Glucose 168 H Calcium 9.3 Total Bilirubin 0.3 AST < 10 L ALT 13 Alkaline Phosphatase 60 Total Protein 7.1 Albumin 4.2 Globulin 2.9 Albumin/Globulin Ratio 1.4 Lipase 31 Urine Color YELLOW Urine Clarity CLEAR Urine pH 7.0 Ur Specific [place] 1.010 Urine Protein NEGATIVE Urine Glucose (UA) NEGATIVE Urine Ketones NEGATIVE Urine Occult Blood NEGATIVE Urine Nitrite NEGATIVE Urine Bilirubin NEGATIVE Urine Urobilinogen 0.2 (NORMAL) Ur Leukocyte Esterase NEGATIVE Ur Microscopic Review NOT INDICATED Urine Culture Comments NOT INDICATED Urine HCG, Qual NEGATIVE - Rads (name of study) Pelvic ultrasound Radiology: Prelim report reviewed, EMP read contemporaneously, See rad report (Uterine fibroids and uterine fundal cysts similar to the prior study. Prior ablation of the endometrium. 2. Septated left ovarian cyst very similar to the prior exam. ) PD MEDICAL DECISION MAKING - ED course Complexity details: reviewed old records, reviewed results, re-evaluated patient, considered differential, d/w patient ED course: 38-year-old female with left-sided pelvic pain. No acute findings on laboratory testing or ultrasound. No evidence of ovarian torsion, rupture, peritonitis. Abdomen is soft, nontender nondistended on serial exam. Ambulating without difficulty in the emergency department. Patient counseled regarding signs and symptoms for which I believe and urgent re-evaluation would be necessary. Patient with good understanding of and agreement to plan and is comfortable going home at this time This document was made in part using voice recognition software. While efforts are made to proofread this document, sound alike and grammatical errors may occur. Departure - Departure Disposition: Home, Self Care Clinical Impression: Pelvic pain Ovarian cyst Qualifiers: Laterality: left Qualified Code(s): N83.202 - Unspecified ovarian cyst, left side Condition: Good Instructions: ED Pelvic Pain [facility] Follow-Up: Cassia Main PA [Primary Care Provider] - Within 1 week Prescriptions: Meloxicam [Mobic] 15 mg PO DAILY PRN #20 tablet PRN Reason: pain Comments: Follow-up with your doctor for further care. Return if you worsen. Discharge Date/Time: 08/19/18 00:49
--- NOTE | 2018-08-19 00:26 | Ultrasound Report ---
Reason: LLQ pain, h/o ovarian cyst Procedure Date: 08/18/2018 Accession Number: [id number] / [id number] Procedure: US - Pelvic w/Transvag+Doppler Comp CPT Code: FULL RESULT: EXAM: PELVIC ULTRASOUND EXAM DATE: 08/18/2018 10:55 PM. CLINICAL HISTORY: LLQ pain, h/o ovarian cyst. COMPARISON: PEL NON OB W/TV DOP LTD 10/24/2017 10:02 PM. TECHNIQUE: Realtime transabdominal pelvic scan performed to identify the uterus and adnexa and as an overview of other pelvic structures, followed by transvaginal scan to provide greater detail of the uterus and adnexa, with static image documentation. FINDINGS: Uterus: Uterus measures 6.7 x 5.2 x 3.7 cm, volume 67 cc. Anteverted position. The uterine echotexture is heterogeneous. Masses: There is a possible intramuscular uterine fibroid along the posterior wall measuring 15 mm x 10 mm x 16 mm and another probable intramural fibroid in the anterior wall measuring 10 mm x 12 mm x 13 mm. There are 2 cystic areas within the fundus. Towards the right cyst measures 13 mm x 12 mm x 11 mm. Towards the left fundus there is a cyst measuring 15 mm x 13 mm x 14 mm. Endometrium: 7.5 mm. Difficult to evaluate endometrium secondary to previous history of endometrial ablation in 2009. Cervix: Unremarkable. Right Ovary: 4.1 x 3.0 x 2.2 cm, volume 14 cc. A right ovarian cyst measures 14 mm x 14 mm x 13 mm. Color Doppler flow noted. Normal echotexture and blood flow. PSV 11.3 cm/s. Resistive index 0.32. Left Ovary: 5.5 x 3.9 x 3.2 cm, volume 36 cc. There is a septated cyst in the left measuring 3.1 x 3.3 x 3.5 cm. This is similar in size to the prior study. Color Doppler flow noted. Normal echotexture and blood flow. PSVT 22.4 cm/s. Restrictive index 0.86 Free Fluid: Minimal IMPRESSION: 1. Uterine fibroids and uterine fundal cysts similar to the prior study. Prior ablation of the endometrium. 2. Septated left ovarian cyst very similar to the prior exam. RADIA
[2018-08-19 00:39] VITALS: BP 108/82
== END 2018-08-19 00:49 | disposition home or self-care (01) ==
LOC: EDUNIT# → ED 19:10
DX: N83.202 Unspecified ovarian cyst, left side (principal); N83.201 Unspecified ovarian cyst, right side; I10 Essential (primary) hypertension; E11.9 Type 2 diabetes mellitus without complications; Z79.84 Long term (current) use of oral hypoglycemic drugs; F17.200 Nicotine dependence, unspecified, uncomplicated; E87.6 Hypokalemia; B37.0 Candidal stomatitis
CPT/HCPCS: 36415; 76830; 76856; 80048; 80053; 81001; 81003; 81025; 83690; 83735; 85025; 87086; 93975; 96372; 99283; 99284

== ENCOUNTER 2018-08-24 13:24 | Outpatient (CLI) | payer MEDICARE, MEDICAID ==
[~2018-08-24 13:24] MED LIST: BUFFERED LIDOCAINE 10 ML SYRINGE ONE
--- NOTE | 2018-08-24 15:57 | Ultrasound Report ---
Reason: MASS OF JOINT OF LEFT WRIST Procedure Date: 08/24/2018 Accession Number: [id number] / [id number] Procedure: US - Biopsy Muscle Percutaneous CPT Code: 59985 FULL RESULT: EXAM: EXTREMITY FINE NEEDLE ASPIRATION EXAM DATE: 08/24/2018 03:16 PM. CLINICAL HISTORY: Mass of joint of left wrist. COMPARISON: None. TECHNIQUE: The risks, benefits, and alternatives of the procedure were discussed with the patient. All questions were answered. Written and verbal consent were obtained. A site was marked over the left wrist nodule in question under live sonographic evaluation, then subsequently prepped and draped in a sterile manner. Local anesthesia was performed with 5 cc of normal saline per patient preference as she wished to avoid administration of lidocaine. Four 22 gauge fine-needle aspirates/passes were performed through the dorsal left wrist nodule in question, then passed to the fur buyer for preparation. Estimated blood loss was less than 1 mL. Sonographic images demonstrate needle placement within dorsal left wrist nodule in question. FINDINGS/IMPRESSION: Successful FNA of dorsal left wrist nodule. Final disposition pending results of histology. [facility] ADDENDUM: 08/26/18 16:59 Histology from fine-needle aspiration returns acellular fluid, nondiagnostic return. Appropriate action is recommended. As patient refuses lidocaine administration, core needle biopsy is likely not possible. Consider either clinical follow-up for stability versus excisional biopsy.
== END 2018-08-24 13:25 | disposition home or self-care (01) ==
LOC: DI 13:24
PROVIDERS: ATTEND Orthopaedic Surgery Sports Medicine
DX: M25.832 Other specified joint disorders, left wrist (principal)
CPT/HCPCS: 20206

== ENCOUNTER 2018-08-27 11:56 | Outpatient (CLI) | payer MEDICARE, MEDICAID | END 2018-08-27 23:59 | disposition home or self-care (01) | LOC: LAB.R 11:56 | PROVIDERS: ATTEND Obstetrics & Gynecology | DX: R10.32 Left lower quadrant pain (principal) | CPT/HCPCS: 87480; 87491; 87510; 87591; 87660 ==

== ENCOUNTER 2018-08-30 13:15 | Emergency (ER) | payer MEDICARE, MEDICAID ==
[2018-08-30 13:44] LABS: BILIRUBIN,URINE NEGATIVE (NEGATIVE); GLUCOSE, URINE (UA) 100 mg/dL (NEGATIVE); KETONES,URINE (UA) NEGATIVE (NEGATIVE); LEUKOCYTE ESTERASE, URINE TRACE (NEGATIVE); NITRITE,URINE NEGATIVE (NEGATIVE); OCCULT BLOOD,URINE NEGATIVE (NEGATIVE); PROTEIN,URINE NEGATIVE (NEGATIVE); UROBILINOGEN,URINE 0.2 (NORMAL) E.U./dL (NORMAL)
[2018-08-30 13:51] LABS: CLARITY,URINE CLEAR (CLEAR)
[2018-08-30 13:52] LABS: HCG UR QUAL NEGATIVE
[2018-08-30 14:00] LABS: BASOPHILS # (AUTO) 0.1 10^3/uL (0.0-0.1); EOSINOPHILS # (AUTO) 0.2 10^3/uL (0.0-0.7); EOSINOPHILS % (AUTO) 2.4 %; HGB - HEMOGLOBIN 14.6 g/dL (12.0-16.0); LYMPHOCYTES # (AUTO) 3.1 10^3/uL (1.5-3.5); LYMPHOCYTES % (AUTO) 33.2 %; MEAN CORPUSCULAR HEMOGLOBIN 30.4 pg (27.0-31.0); MEAN CORPUSCULAR HGB CONC 33.8 g/dL (32.0-36.0); MEAN PLATELET VOLUME 7.4 fL (7.9-10.8); MONOCYTES # (AUTO) 0.5 10^3/uL (0.0-1.0); MONOCYTES % (AUTO) 5.5 %; NEUTROPHILS # (AUTO) 5.3 10^3/uL (1.5-6.6); NEUTROPHILS % (AUTO) 57.9 %; PLT - PLATELET COUNT 311 10^3/uL (130-450); RED CELL DISTRIBUTION WIDTH 13.5 % (12.0-15.0); WHITE BLOOD COUNT 9.2 x10^3/uL (4.8-10.8)
[2018-08-30 14:02] LABS: BACTERIA,URINE Rare /HPF (None Seen); RBC,URINE 0-5 /HPF (0-5); SQUAMOUS EPITHELIAL CELL,UR MOD Squamous (<= Few)
[2018-08-30 14:16] LABS: ALBUMIN 4.4 g/dL (3.2-5.5); ALBUMIN/GLOBULIN RATIO 1.3 (1.0-2.2); BILIRUBIN,TOTAL 0.4 mg/dL (0.2-1.0); CREATININE 0.6 mg/dL (0.4-1.0); TOTAL PROTEIN 7.7 g/dL (6.7-8.2)
[2018-08-30] MEDS ORDERED: oxyCODONE 5 MG TABLET PO STA (15:05)
--- NOTE | 2018-08-30 15:10 | ED Physician Documentation ---
PD HPI ABD PAIN - Stated complaint Stated Complaint: LOWER LEFT AB PX - Chief complaint Chief Complaint: Abd Pain - History obtained from History obtained from: Patient - History of Present Illness Timing - onset: Other (38-year-old woman with ongoing left lower quadrant pain. She has a known ovarian cyst to the area that had started showing up on imaging in October of last year. Since then compared to ultrasound she had 10 days ago it has not grown but she has persistent left lower quadrant pain. She was seen by a blankbook forwarder who recommended oophorectomy but wanted to her to see a general surgeon first for concern for hernia. Noting that no hernia was present on the last CT. She denies any nausea, vomiting, diarrhea, vaginal bleeding.) Review of Systems Constitutional: denies: Fever, Chills Cardiac: denies: Chest pain / pressure, Palpitations Respiratory: denies: Dyspnea, Cough PD PAST MEDICAL HISTORY - Past Medical History Cardiovascular: Hypertension Respiratory: Asthma, COPD Neuro: Seizure disorder Endocrine/Autoimmune: Type 2 diabetes GI: GERD MEDICAL REFERRAL COORDINATOR: None : Incontinence HEENT: None Psych: Bipolar disorder Musculoskeletal: Osteoarthritis, Osteoporosis Derm: Other drug resistant infections - Past Surgical History Past Surgical History: Yes General: Cholecystectomy /MEDICAL REFERRAL COORDINATOR: Tubal ligation, Other HEENT: Tonsil/Adenoidectomy, Other - Present Medications Home Medications: Ambulatory Orders Medication Instructions Recorded Confirmed Zonisamide [Zonegran] 200 mg PO BID 12/02/16 10/24/17 Metformin HCl 1,000 mg PO BIDWM 02/15/17 10/24/17 acetaZOLAMIDE [Acetazolamide] 500 mg PO BID 02/15/17 10/24/17 Atorvastatin Calcium 40 mg PO QPM 05/26/17 10/24/17 Esomeprazole Magnesium 40 mg PO QDAC 05/26/17 10/24/17 Albuterol 2.5 mg INH Q4H PRN #30 neb 11/26/17 Albuterol Sulfate [Proventil Hfa 1 - 2 puffs IH Q4H PRN #1 11/26/17 Inhaler] [email or web address] Meloxicam [Mobic] 15 mg PO DAILY PRN #20 tablet 08/19/18 Oxycodone HCl/Acetaminophen 1 - 2 each PO Q6H PRN #14 tablet 08/30/18 [Percocet 5-325 mg Tablet] - Allergies Allergies/Adverse Reactions: Allergies Allergy/AdvReac Type Severity Reaction Status Date / Time Latex, Natural Rubber Allergy Mild Rash Verified 08/30/18 13:30 acetaminophen [From Vicodin] Allergy Hives Verified 08/30/18 13:30 hydrocodone bitartrate * Allergy Hives Verified 08/30/18 13:30 [From Vicodin] Penicillins Allergy Rash Verified 08/30/18 13:30 tramadol Allergy Rash Verified 08/30/18 13:30 adhesive AdvReac Intermediate chemical Verified 08/30/18 13:30 logan haloperidol [From Haldol] AdvReac Unknown Hallucinati Verified 08/30/18 13:30 ons iodine AdvReac Unknown Rash Verified 08/30/18 13:30 latex AdvReac Unknown Respiratory Verified 08/30/18 13:30 lamotrigine [From Lamictal] AdvReac Rash Verified 08/30/18 13:30 varenicline tartrate * AdvReac Hallucinati Verified 08/30/18 13:30 [From Chantix] ons steriods AdvReac Intermediate Unknown Uncoded 08/30/18 13:30 - Social History Does the pt smoke?: Yes Smoking Status: Current every day smoker Does the pt drink ETOH?: Yes Does the pt have substance abuse?: No - Immunizations Immunizations are current?: No - POLST Patient has POLST: No POLST Status: Full Code PD ED PE NORMAL - Vitals Vital signs reviewed: Yes - General General: Alert and oriented X 3, No acute distress - Abdomen Abdomen: Normal bowel sounds, Soft, Non tender - Derm Derm: Normal color, Warm and dry - Extremities Extremities: No edema, No calf tenderness / cord Results - Vitals Vitals: Vital Signs - 24 hr 08/30/18 13:27 Temperature 35.9 C L Heart Rate 86 Respiratory 15 Rate Blood Pressure 141/81 H O2 Saturation 99 Oxygen O2 Source Room air - Labs Labs: Laboratory Tests 08/30/18 08/30/18 08/30/18 13:31 13:55 13:55 WBC 9.2 RBC 4.80 Hgb 14.6 Hct 43.2 MCV 90.0 MCH 30.4 MCHC 33.8 RDW 13.5 Plt Count 311 MPV 7.4 L Neut # (Auto) 5.3 Lymph # (Auto) 3.1 [place] # (Auto) 0.5 Eos # (Auto) 0.2 Baso # (Auto) 0.1 Absolute Nucleated RBC 0.00 Nucleated RBC % 0.0 Sodium 135 Potassium 3.4 L Chloride 105 Carbon Dioxide 21 Anion Gap 9.0 BUN 10 Creatinine 0.6 Estimated GFR (MDRD) 113 Glucose 224 H Calcium 9.0 Total Bilirubin 0.4 AST 13 ALT 17 Alkaline Phosphatase 74 Total Protein 7.7 Albumin 4.4 Globulin 3.3 Albumin/Globulin Ratio 1.3 Lipase 38 Urine Color YELLOW Urine Clarity CLEAR Urine pH 7.0 Ur Specific [place] 1.010 Urine Protein NEGATIVE Urine Glucose (UA) 100 H Urine Ketones NEGATIVE Urine Occult Blood NEGATIVE Urine Nitrite NEGATIVE Urine Bilirubin NEGATIVE Urine Urobilinogen 0.2 (NORMAL) Ur Leukocyte Esterase TRACE H Urine RBC 0-5 Urine WBC 0-3 Ur Squamous Epith Cells MOD Squamous H Urine Bacteria Rare Ur Microscopic Review INDICATED Urine Culture Comments NOT INDICATED Urine HCG, Qual NEGATIVE PD MEDICAL DECISION MAKING - ED course ED course: This is a 38-year-old woman with ongoing left ovarian pain with known cyst there. Pain is not acutely worse and she is not in extremis so I doubt torsion. Gynecologic follow-up was advised. Departure - Departure Disposition: 01 Home, Self Care Clinical Impression: Ovarian cyst Qualifiers: Laterality: left Qualified Code(s): N83.202 - Unspecified ovarian cyst, left side Condition: Good Record reviewed to determine appropriate education?: Yes Instructions: ED Cyst Ovarian Prescriptions: Oxycodone HCl/Acetaminophen [Percocet 5-325 mg Tablet] 1 - 2 each PO Q6H PRN #14 tablet PRN Reason: pain Comments: Follow-up with a blankbook forwarder for consideration for oophorectomy. Return for new or worsening symptoms.
[2018-08-30 15:29] VITALS: BP 130/79
== END 2018-08-30 15:31 | disposition home or self-care (01) ==
LOC: ED 13:15
DX: N83.202 Unspecified ovarian cyst, left side (principal); I10 Essential (primary) hypertension; E11.9 Type 2 diabetes mellitus without complications; F17.200 Nicotine dependence, unspecified, uncomplicated; Z79.84 Long term (current) use of oral hypoglycemic drugs
CPT/HCPCS: 36415; 80053; 81001; 81025; 83690; 85025; 99283; A9270; 81003; 87086

== ENCOUNTER 2018-10-12 16:53 | Outpatient (CLI) | payer MEDICARE, MEDICAID | END 2018-10-12 16:54 | disposition critical access hospital (66) | LOC: EMS 16:53 | PROVIDERS: ATTEND Surgery | DX: K92.0 Hematemesis (principal) | CPT/HCPCS: A0425; A0429 ==

== ENCOUNTER 2018-10-12 16:59 | Emergency (ER) | payer MEDICARE, MEDICAID ==
[2018-10-12] MEDS ORDERED: HYDROmorphone 1 MG/ML CARPUJECT IVP STA (17:13)
[2018-10-12] MEDS ORDERED: ONDANSETRON 4 MG/2 ML VIAL IVP STA (17:13)
[2018-10-12] MEDS ORDERED: PANTOPRAZOLE 40 MG VIAL IVP STA (17:13)
[2018-10-12] MEDS ORDERED: SODIUM CHLORIDE 0.9% 1,000 ML IV ONE (17:13)
--- NOTE | 2018-10-12 17:15 | ED Physician Documentation ---
PD HPI ABD PAIN - Stated complaint Stated Complaint: VOMITING BLOOD - Chief complaint Chief Complaint: Abd Pain - History obtained from History obtained from: Patient, EMS - History of Present Illness Timing - onset: Other (38-year-old woman with history of psychiatric illness, uncontrolled diabetes, pseudoseizures presents with a 6-day illness of nausea and vomiting as well as upper abdominal pain. She has a history of ulcer disease. She was exposed to a viral GI illness by a child about a week ago. Today in the midst of vomiting she threw up blood mixed with the vomit.) Review of Systems Ten Systems: 10 systems reviewed and negative Constitutional: reports: Fever (Tactile) Nose: denies: Rhinorrhea / runny nose, Congestion Throat: denies: Sore throat Cardiac: denies: Chest pain / pressure, Palpitations Respiratory: reports: Cough. 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: None : Incontinence HEENT: None Psych: Bipolar disorder Musculoskeletal: Osteoarthritis, Osteoporosis Derm: Other drug resistant infections - Past Surgical History Past Surgical History: Yes General: Cholecystectomy /BOILERMAKER WELDER: Tubal ligation, Other HEENT: Tonsil/Adenoidectomy, Other - Present Medications Home Medications: Ambulatory Orders Medication Instructions Recorded Confirmed Zonisamide [Zonegran] 200 mg PO BID 12/02/16 10/12/18 Metformin HCl 1,000 mg PO BIDWM 02/15/17 10/12/18 acetaZOLAMIDE [Acetazolamide] 1,000 mg PO BID 02/15/17 10/12/18 Atorvastatin Calcium 40 mg PO QPM 05/26/17 10/12/18 Albuterol Sulfate [Proventil Hfa 1 - 2 puffs IH Q4H PRN #1 11/26/17 10/12/18 Inhaler] hfa.aer.ad Meloxicam [Mobic] 15 mg PO DAILY PRN #20 tablet 08/19/18 10/12/18 Ciprofloxacin [Cipro] 250 mg PO Q12H #10 tablet 10/12/18 Methocarbamol 1 tab ORAL TID 10/12/18 10/12/18 Pantoprazole [Protonix] 1 tab ORAL DAILY 10/12/18 10/12/18 Promethazine [Phenergan] 25 mg PO Q6H PRN #10 tab 10/12/18 - Allergies Allergies/Adverse Reactions: Allergies Allergy/AdvReac Type Severity Reaction Status Date / Time Latex, Natural Rubber Allergy Mild Rash Verified 10/12/18 18:02 acetaminophen [From Vicodin] Allergy Hives Verified 10/12/18 18:02 hydrocodone bitartrate * Allergy Hives Verified 10/12/18 18:02 [From Vicodin] Penicillins Allergy Rash Verified 10/12/18 18:02 tramadol Allergy Rash Verified 10/12/18 18:02 adhesive AdvReac Intermediate chemical Verified 10/12/18 18:02 logan haloperidol [From Haldol] AdvReac Unknown Hallucinati Verified 10/12/18 18:02 ons iodine AdvReac Unknown Rash Verified 10/12/18 18:02 latex AdvReac Unknown Respiratory Verified 10/12/18 18:02 lamotrigine [From Lamictal] AdvReac Rash Verified 10/12/18 18:02 varenicline tartrate * AdvReac Hallucinati Verified 10/12/18 18:02 [From Chantix] ons steriods AdvReac Intermediate Unknown Uncoded 10/12/18 18:02 - Social History Does the pt smoke?: Yes Smoking Status: Current every day smoker Does the pt drink ETOH?: Yes Does the pt have substance abuse?: No - Immunizations Immunizations are current?: No - POLST Patient has POLST: No POLST Status: Full Code PD ED PE NORMAL - Vitals Vital signs reviewed: Yes - General General: Alert and oriented X 3, No acute distress - Neck Neck: Supple, no meningeal sign, No bony TTP - Cardiac Cardiac: RRR, No murmur - Respiratory Respiratory: Other (Diffuse expiratory wheezing) - Abdomen Abdomen: Normal bowel sounds, Soft, Other (Upper abdominal tenderness from which she is distractible) - Back Back: No CVA TTP, No spinal TTP - Derm Derm: Normal color, Warm and dry - Extremities Extremities: No edema, No calf tenderness / cord - Neuro Neuro: Alert and oriented X 3, Normal speech Results - Vitals Vitals: Vital Signs - 24 hr 10/12/18 10/12/18 17:06 19:31 Temperature 36.5 C Heart Rate 96 74 Respiratory 24 16 Rate Blood Pressure 127/93 H 120/74 O2 Saturation 98 96 Oxygen O2 Source Room air - Labs Labs: Laboratory Tests 10/12/18 10/12/18 10/12/18 17:25 18:13 18:30 WBC 8.6 RBC 4.98 Hgb 15.2 Hct 45.0 MCV 90.4 MCH 30.5 MCHC 33.8 RDW 13.0 Plt Count 243 MPV 7.1 L Neut # (Auto) 5.2 Lymph # (Auto) 2.6 [place] # (Auto) 0.5 Eos # (Auto) 0.2 Baso # (Auto) 0.1 Absolute Nucleated RBC 0.00 Nucleated RBC % 0.0 Sodium 139 Potassium 3.7 Chloride 108 Carbon Dioxide 24 Anion Gap 7.0 BUN 10 Creatinine 0.5 Estimated GFR (MDRD) 140 Glucose 187 H Calcium 8.5 Total Bilirubin 0.4 AST < 10 L ALT 14 Alkaline Phosphatase 52 Total Protein 6.3 L Albumin 3.8 Globulin 2.5 Albumin/Globulin Ratio 1.5 Lipase 39 Urine Color YELLOW Urine Clarity CLEAR Urine pH 6.5 Ur Specific [place] 1.015 Urine Protein NEGATIVE Urine Glucose (UA) NEGATIVE Urine Ketones NEGATIVE Urine Occult Blood NEGATIVE Urine Nitrite POSITIVE H Urine Bilirubin NEGATIVE Urine Urobilinogen 0.2 (NORMAL) Ur Leukocyte Esterase NEGATIVE Urine RBC None Seen Urine WBC 0-3 Ur Squamous Epith Cells FEW Squamous Urine Bacteria Many H Ur Microscopic Review INDICATED Urine Culture Comments INDICATED - Rads (name of study) CT A/P Radiology: EMP read contemporaneously (Diverticulosis, stable ovarian cyst.) PD MEDICAL DECISION MAKING - ED course ED course: 38-year-old woman with what sounds like a viral gastroenteritis, now with a single episode of hematemesis tonight was consistent with a Elisabet-Foster phenomenon. CT without acute findings and her H&H was fine. She felt better after meds here. She did not want to stay in the emergency department to complete an oral challenge and demanded discharge. Departure - Departure Disposition: 01 Home, Self Care Clinical Impression: Abdominal pain Vomiting Qualifiers: Vomiting type: unspecified Vomiting Intractability: non-intractable Nausea presence: with nausea Qualified Code(s): R11.2 - Nausea with vomiting, unspecified Diarrhea Qualifiers: Diarrhea type: presumed infectious Qualified Code(s): R19.7 - Diarrhea, unspecified Condition: Good Record reviewed to determine appropriate education?: Yes Instructions: ED Abdominal Pain Unkn Cause Prescriptions: Ciprofloxacin [Cipro] 250 mg PO Q12H #10 tablet Promethazine [Phenergan] 25 mg PO Q6H PRN #10 tab PRN Reason: Nausea / Vomiting Comments: We will culture your urine, the results should be done in 48-72 hours. If an antibiotic change is necessary we will call you. Return if worse in the meantime, especially if you develop increasing flank pain, fevers, or cannot keep down the medication.
[2018-10-12] MEDS ORDERED: IOVERSOL 320 100 ML VIAL IVP ONE (17:23)
[2018-10-12] MEDS ORDERED: diphenhydrAMINE INJ 50 MG/ML VIAL IVP STA (17:30)
[2018-10-12 17:38] LABS: BASOPHILS # (AUTO) 0.1 10^3/uL (0.0-0.1); BASOPHILS % (AUTO) 1.3 %; EOSINOPHILS # (AUTO) 0.2 10^3/uL (0.0-0.7); EOSINOPHILS % (AUTO) 2.3 %; HGB - HEMOGLOBIN 15.2 g/dL (12.0-16.0); LYMPHOCYTES # (AUTO) 2.6 10^3/uL (1.5-3.5); LYMPHOCYTES % (AUTO) 30.2 %; MEAN CORPUSCULAR HEMOGLOBIN 30.5 pg (27.0-31.0); MEAN CORPUSCULAR HGB CONC 33.8 g/dL (32.0-36.0); MEAN CORPUSCULAR VOLUME 90.4 fL (81.0-99.0); MEAN PLATELET VOLUME 7.1 fL (7.9-10.8); MONOCYTES # (AUTO) 0.5 10^3/uL (0.0-1.0); MONOCYTES % (AUTO) 6.3 %; NEUTROPHILS # (AUTO) 5.2 10^3/uL (1.5-6.6); NEUTROPHILS % (AUTO) 59.9 %; PLT - PLATELET COUNT 243 10^3/uL (130-450); RED BLOOD COUNT 4.98 10^6/uL (4.20-5.40); WHITE BLOOD COUNT 8.6 x10^3/uL (4.8-10.8)
[2018-10-12] MEDS ORDERED: PROMETHAZINE INJ 25 MG in SODIUM CHLORIDE 0.9% 50 ML IV STA (18:32)
[2018-10-12 18:37] LABS: BILIRUBIN,URINE NEGATIVE (NEGATIVE); GLUCOSE, URINE (UA) NEGATIVE (NEGATIVE); KETONES,URINE (UA) NEGATIVE (NEGATIVE); LEUKOCYTE ESTERASE, URINE NEGATIVE (NEGATIVE); NITRITE,URINE POSITIVE (NEGATIVE); OCCULT BLOOD,URINE NEGATIVE (NEGATIVE); PH,URINE 6.5 PH (5.0-7.5); PROTEIN,URINE NEGATIVE (NEGATIVE); UROBILINOGEN,URINE 0.2 (NORMAL) E.U./dL (NORMAL)
[2018-10-12 18:39] LABS: CLARITY,URINE CLEAR (CLEAR)
[2018-10-12 18:47] LABS: BACTERIA,URINE Many /HPF (None Seen); RBC,URINE None Seen /HPF (0-5); SQUAMOUS EPITHELIAL CELL,UR FEW Squamous (<= Few)
[2018-10-12 19:03] LABS: ALBUMIN 3.8 g/dL (3.2-5.5); ALBUMIN/GLOBULIN RATIO 1.5 (1.0-2.2); ALKALINE PHOSPHATASE 52 IU/L (42-121); ALT ALANINE AMINOTRANSFERASE 14 IU/L (10-60); AST ASPARTATE AMINOTRANSFERASE < 10 IU/L (10-42); BILIRUBIN,TOTAL 0.4 mg/dL (0.2-1.0); BUN - BLOOD UREA NITROGEN 10 mg/dL (6-20); CALCIUM 8.5 mg/dL (8.5-10.3); CARBON DIOXIDE - CO2 24 mmol/L (21-32); CHLORIDE 108 mmol/L (101-111); CREATININE 0.5 mg/dL (0.4-1.0); GFR - MDRD 140 (>89); GLUCOSE 187 mg/dL (70-100); LIPASE 39 U/L (22-51); SODIUM 139 mmol/L (135-145); TOTAL PROTEIN 6.3 g/dL (6.7-8.2)
[2018-10-12] MEDS ORDERED: cefTRIAXone 1 GM in SODIUM CHLORIDE 0.9% MINIBAG 100 ML IV STA (19:28)
--- NOTE | 2018-10-12 20:01 | CT Report ---
Reason: IV only, N/V abd pain Procedure Date: 10/12/2018 Accession Number: [id number] / [id number] Procedure: CT - Abdomen/Pelvis W CPT Code: FULL RESULT: EXAM: CT ABDOMEN AND PELVIS EXAM DATE: 10/12/2018 07:28 PM. CLINICAL HISTORY: IV only, N/V abd pain. COMPARISONS: ABDOMEN/PELVIS W/O 07/18/2018 10:08 PM. TECHNIQUE: Routine helical CT imaging was performed through the abdomen and pelvis. IV contrast: Optiray 320. Enteric contrast: No. Reconstructions: Coronal and sagittal. In accordance with CT protocol optimization, one or more of the following dose reduction techniques were utilized for this exam: automated exposure control, adjustment of mA and/or KV based on patient size, or use of iterative reconstructive technique. FINDINGS: Lung Bases: Unremarkable. Liver: Hepatomegaly 24 cm Gallbladder/Bile Ducts: Post cholecystectomy Spleen: Normal. Pancreas: Normal. Adrenal Glands: Normal. Kidneys: Left renal small nonobstructing calcification. Right kidney unremarkable Peritoneal Cavity/Bowel: Diverticulosis. No free fluid, free air or adenopathy. No masses or acute inflammatory process. The appendix is well visualized and normal. Pelvic Organs: Left ovarian 4.7 x 4.5 cm density stable. Tubal ligation clips.. The bladder and rest of the visualized pelvic organs are within normal limits. Vasculature: No aneurysms or other significant abnormality. Bones: DJD spine. S-shaped scoliosis. Other: None. IMPRESSION: 1. Hepatomegaly. 2. Diverticulosis. 3. Left ovarian mass stable RADIA
[2018-10-12 20:13] VITALS: BP 121/76
== END 2018-10-12 20:15 | disposition home or self-care (01) ==
LOC: EDUNIT# → EDBD → ED 16:59
DX: R10.10 Upper abdominal pain, unspecified (principal); R11.2 Nausea with vomiting, unspecified; R19.7 Diarrhea, unspecified; I10 Essential (primary) hypertension; E11.9 Type 2 diabetes mellitus without complications; F17.200 Nicotine dependence, unspecified, uncomplicated
CPT/HCPCS: 36415; 74177; 80053; 81001; 83690; 85025; 87086; 87181; 96365; 96366; 96375; 99283; J1170; J1200; J7040; Q9967; 81003

== ENCOUNTER 2018-10-15 14:50 | Outpatient (CLI) | payer MEDICARE, MEDICAID ==
[2018-10-15 19:22] LABS: HB2 TOTAL 17.3 g/dL; HEMOGLOBIN A1C 1.01 g/dL; HEMOGLOBIN A1C % 7.5 % (4.6-6.2)
== END 2018-10-15 23:59 | disposition home or self-care (01) ==
LOC: LAB.WCP 14:50
PROVIDERS: ATTEND Obstetrics & Gynecology
DX: E11.9 Type 2 diabetes mellitus without complications (principal)
CPT/HCPCS: 36415; 83036

== ENCOUNTER 2018-10-19 14:18 | Outpatient (CLI) | payer MEDICARE, MEDICAID | END 2018-10-19 14:19 | disposition home or self-care (01) | LOC: SC 14:18 | PROVIDERS: ATTEND Internal Medicine Pulmonary Disease | DX: G47.33 Obstructive sleep apnea (adult) (pediatric) (principal) | CPT/HCPCS: 99213; G0463; 99212 ==

== ENCOUNTER 2018-10-22 16:56 | Outpatient (CLI) | payer MEDICARE, MEDICAID ==
--- NOTE | 2018-10-23 22:07 | Ultrasound Report ---
Reason: OTHER OVARIAN CYST,LEFT SIDE Procedure Date: 10/22/2018 Accession Number: [id number] / [id number] Procedure: US - Pelvic w/Transvaginal CPT Code: FULL RESULT: EXAM: PELVIC ULTRASOUND EXAM DATE: 10/22/2018 06:11 PM. CLINICAL HISTORY: Other ovarian cyst, left side. COMPARISON: 10/12/2018 CT and 08/18/2018 pelvic ultrasound. TECHNIQUE: Realtime transabdominal pelvic scan performed to identify the uterus and adnexa and as an overview of other pelvic structures, followed by transvaginal scan to provide greater detail of the uterus and adnexa, with static image documentation. FINDINGS: Uterus: 7.5 x 3.4 x 4.8 cm, volume 64 cc. Anteverted position. Normal overall size and echotexture. Masses: None. Endometrium: 5.9 mm. Poorly defined compatible with the provided history of previous endometrial ablation. 1 x 0.9 x 1.2 cm and 1.4 x 1.3 x 1.7 cm fundal myometrial cysts are noted. No focal endometrial mass or polyp. Cervix: No mass. Small nabothian cysts are noted. Right Ovary: 3.3 x 1.6 x 2.1 cm, volume 5.8 cc. Normal echotexture and blood flow. Left Ovary: 6.6 x 4.5 x 5.7 cm, volume 88 cc. Normal echotexture and blood flow. Complex 3.3 x 3 x 3 cm avascular left ovarian cyst with lacelike debris. There is a second complex septated debris-containing 2.7 x 2.3 x 2.7 cm cyst. Previously noted septated cyst measured 3.1 x 3.3 x 3.5 cm. Free Fluid: None. Other: None. IMPRESSION: 1. Slightly decreased size in the septated complex left ovarian cyst currently measuring 2.7 cm compared with the previous 3.5 cm. Recommend continue monitoring to document resolution of findings. There is a new avascular complex debris-containing left ovarian cyst measuring 3.3 cm. Sonographic appearance is most compatible with a corpus luteum or involuting cyst. Otherwise, left ovary and adnexa are normal. 2. Normal right ovary and adnexa. 3. No endometrial mass or polyp. Myometrial cysts are noted. No uterine fibroid. RADIA
== END 2018-10-22 16:57 | disposition home or self-care (01) ==
LOC: DI 16:56
PROVIDERS: ATTEND Obstetrics & Gynecology
DX: N83.292 Other ovarian cyst, left side (principal)
CPT/HCPCS: 76830; 76856

== ENCOUNTER 2018-11-02 07:59 | Outpatient (CLI) | payer MEDICARE, MEDICAID ==
[2018-11-02 08:38] LABS: BASOPHILS # (AUTO) 0.1 10^3/uL (0.0-0.1); EOSINOPHILS # (AUTO) 0.2 10^3/uL (0.0-0.7); EOSINOPHILS % (AUTO) 2.5 %; HGB - HEMOGLOBIN 15.1 g/dL (12.0-16.0); LYMPHOCYTES # (AUTO) 2.4 10^3/uL (1.5-3.5); LYMPHOCYTES % (AUTO) 26.3 %; MEAN CORPUSCULAR HEMOGLOBIN 30.3 pg (27.0-31.0); MEAN CORPUSCULAR HGB CONC 33.5 g/dL (32.0-36.0); MEAN CORPUSCULAR VOLUME 90.4 fL (81.0-99.0); MEAN PLATELET VOLUME 7.1 fL (7.9-10.8); MONOCYTES # (AUTO) 0.6 10^3/uL (0.0-1.0); MONOCYTES % (AUTO) 6.1 %; NEUTROPHILS # (AUTO) 5.9 10^3/uL (1.5-6.6); NEUTROPHILS % (AUTO) 64.1 %; PLT - PLATELET COUNT 285 10^3/uL (130-450); RED BLOOD COUNT 4.97 10^6/uL (4.20-5.40); RED CELL DISTRIBUTION WIDTH 13.2 % (12.0-15.0); WHITE BLOOD COUNT 9.3 x10^3/uL (4.8-10.8)
[2018-11-02 08:48] LABS: ALBUMIN 3.9 g/dL (3.2-5.5); ALBUMIN/GLOBULIN RATIO 1.3 (1.0-2.2); BILIRUBIN,TOTAL 0.4 mg/dL (0.2-1.0); CALCIUM 9.2 mg/dL (8.5-10.3); CREATININE 0.6 mg/dL (0.4-1.0); TOTAL PROTEIN 6.9 g/dL (6.7-8.2)
== END 2018-11-02 08:00 | disposition home or self-care (01) ==
LOC: LAB 07:59
PROVIDERS: ATTEND Obstetrics & Gynecology
DX: N83.202 Unspecified ovarian cyst, left side (principal); E11.9 Type 2 diabetes mellitus without complications; R06.09 Other forms of dyspnea
CPT/HCPCS: 36415; 80053; 82378; 83880; 85025; 86304

== ENCOUNTER → 2018-11-04 | Outpatient (CLI) | payer MEDICARE, MEDICAID | LOC: LAB 08:00 | PROVIDERS: ATTEND Obstetrics & Gynecology | DX: Z53.9 Procedure and treatment not carried out, unspecified reason (principal) ==

== ENCOUNTER 2018-11-05 15:11 | Outpatient (CLI) | payer MEDICARE, MEDICAID ==
--- NOTE | 2018-11-05 16:34 | XRAY Report ---
Reason: DYSPNEA ON EXERTION Procedure Date: 11/05/2018 Accession Number: [id number] / [id number] Procedure: XR - Chest 2 View X-Ray CPT Code: 52535 FULL RESULT: EXAM: CHEST RADIOGRAPHY EXAM DATE: 11/05/2018 03:42 PM. CLINICAL HISTORY: Dyspnea on exertion. COMPARISON: CHEST 2 VIEW 11/26/2017 3:37 PM. TECHNIQUE: 2 views. FINDINGS: Lungs/Pleura: No focal opacities evident. No pleural effusion. No pneumothorax. Normal volumes. Mediastinum: Heart and mediastinal contours are unremarkable. Other: None. IMPRESSION: Normal 2-view chest radiography. RADIA
== END 2018-11-05 15:12 | disposition home or self-care (01) ==
LOC: DI 15:11
PROVIDERS: ATTEND Family Medicine
DX: R06.00 Dyspnea, unspecified (principal)
CPT/HCPCS: 71046

== ENCOUNTER 2018-11-13 20:59 | Emergency (ER) | payer MEDICARE, MEDICAID ==
[2018-11-13] MEDS ORDERED: KETOROLAC 60 MG/2 ML VIAL IM STA (21:22)
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
[2018-11-13 21:40] LABS: BASOPHILS # (AUTO) 0.1 10^3/uL (0.0-0.1); BASOPHILS % (AUTO) 0.8 %; EOSINOPHILS # (AUTO) 0.2 10^3/uL (0.0-0.7); EOSINOPHILS % (AUTO) 2.1 %; HGB - HEMOGLOBIN 15.5 g/dL (12.0-16.0); LYMPHOCYTES # (AUTO) 3.3 10^3/uL (1.5-3.5); LYMPHOCYTES % (AUTO) 37.1 %; MEAN CORPUSCULAR HEMOGLOBIN 30.8 pg (27.0-31.0); MEAN CORPUSCULAR HGB CONC 34.3 g/dL (32.0-36.0); MEAN CORPUSCULAR VOLUME 89.7 fL (81.0-99.0); MEAN PLATELET VOLUME 9.1 fL (7.9-10.8); MONOCYTES # (AUTO) 0.5 10^3/uL (0.0-1.0); NEUTROPHILS # (AUTO) 4.8 10^3/uL (1.5-6.6); NEUTROPHILS % (AUTO) 53.8 %; PLT - PLATELET COUNT 266 10^3/uL (130-450); RED BLOOD COUNT 5.04 10^6/uL (4.20-5.40); RED CELL DISTRIBUTION WIDTH 12.7 % (12.0-15.0); WHITE BLOOD COUNT 8.8 x10^3/uL (4.8-10.8)
[2018-11-13 21:49] LABS: ALBUMIN/GLOBULIN RATIO 1.3 (1.0-2.2); BILIRUBIN,TOTAL 0.5 mg/dL (0.2-1.0); CALCIUM 8.9 mg/dL (8.5-10.3); CREATININE 0.6 mg/dL (0.4-1.0); TOTAL PROTEIN 7.2 g/dL (6.7-8.2)
[2018-11-13] MEDS ORDERED: IPRATROPIUM/ALBUTEROL 3 ML NEB INH STA (21:53)
--- NOTE | 2018-11-13 22:06 | XRAY Report ---
Reason: right rhomboid pain Procedure Date: 11/13/2018 Accession Number: [id number] / [id number] Procedure: XR - Chest 2 View X-Ray CPT Code: 07922 FULL RESULT: EXAM: CHEST RADIOGRAPHY EXAM DATE: 11/13/2018 09:45 PM. CLINICAL HISTORY: Right rhomboid pain. COMPARISON: CHEST 2 VIEW 11/05/2018 3:30 PM. TECHNIQUE: 2 views. FINDINGS: Lungs/Pleura: No focal opacities evident. No pleural effusion. No pneumothorax. Normal volumes. Mediastinum: Heart and mediastinal contours are unremarkable. Other: None. IMPRESSION: Normal 2-view chest radiography. RAD[facility]
[2018-11-13] MEDS ORDERED: oxyCODONE 5 MG TABLET PO STA (22:13)
[2018-11-13] MEDS ORDERED: POTASSIUM CHLORIDE 20 MEQ TABLET PO STA (22:14)
[2018-11-13 22:53] LABS: BILIRUBIN,URINE NEGATIVE (NEGATIVE); GLUCOSE, URINE (UA) NEGATIVE (NEGATIVE); KETONES,URINE (UA) NEGATIVE (NEGATIVE); LEUKOCYTE ESTERASE, URINE NEGATIVE (NEGATIVE); NITRITE,URINE NEGATIVE (NEGATIVE); OCCULT BLOOD,URINE NEGATIVE (NEGATIVE); PROTEIN,URINE NEGATIVE (NEGATIVE); UROBILINOGEN,URINE 0.2 (NORMAL) E.U./dL (NORMAL)
[2018-11-13 22:54] LABS: CLARITY,URINE CLEAR (CLEAR)
[2018-11-13] MEDS ORDERED: oxyCODONE/ACET 5/325 Prepack 4 PO STA (23:26)
[2018-11-13 23:54] VITALS: BP 110/69
== END 2018-11-13 23:54 | disposition home or self-care (01) ==
LOC: ED 20:59
DX: R07.89 Other chest pain (principal); M54.2 Cervicalgia; M25.551 Pain in right hip; W18.30XA Fall on same level, unspecified, initial encounter; E11.9 Type 2 diabetes mellitus without complications; Z79.84 Long term (current) use of oral hypoglycemic drugs; I10 Essential (primary) hypertension; F20.9 Schizophrenia, unspecified; J44.9 Chronic obstructive pulmonary disease, unspecified; F17.200 Nicotine dependence, unspecified, uncomplicated
CPT/HCPCS: 36415; 71046; 80053; 81003; 83690; 85025; 94640; 96372; 99283; A9270; 81001; 87086

== ENCOUNTER 2018-11-17 08:00 | Outpatient (CLI) | payer MEDICARE, MEDICAID | END 2018-11-17 08:01 | disposition home or self-care (01) | LOC: LAB.R 08:00 | PROVIDERS: ATTEND Obstetrics & Gynecology | DX: Z22.322 Carrier or suspected carrier of Methicillin resistant Staphylococcus aureus (principal) | CPT/HCPCS: 87640 ==

== ENCOUNTER 2018-11-17 19:13 | Outpatient (CLI) | payer MEDICARE, MEDICAID | END 2018-11-17 19:14 | disposition home or self-care (01) | LOC: SC 19:13 | PROVIDERS: ATTEND Internal Medicine Pulmonary Disease | DX: Z53.9 Procedure and treatment not carried out, unspecified reason (principal) ==

== ENCOUNTER 2018-11-17 22:06 | Outpatient (CLI) | payer MEDICARE, MEDICAID | END 2018-11-17 22:07 | disposition critical access hospital (66) | LOC: EMS 22:06 | PROVIDERS: ATTEND Surgery | DX: M54.5 Low back pain (principal); R11.0 Nausea | CPT/HCPCS: A0425; A0429 ==

== ENCOUNTER 2018-11-17 22:24 | Emergency (ER) | payer MEDICARE, MEDICAID ==
--- NOTE | 2018-11-17 23:58 | ED Physician Documentation ---
PD HPI BACK PAIN - Stated complaint Stated Complaint: BACK PAIN - Chief complaint Chief Complaint: Back Pain - History obtained from History obtained from: Patient - History of Present Illness Timing - onset: How many hours ago (1) Timing - duration: Hours Timing - details: Abrupt onset Pain level max: 8 Pain level now: 1 Location: Right Quality: Pain, Similar to prior episodes Associated symptoms: No: Fever, Weakness, Numbness, Incontinent of urine, Unable to urinate, Hematuria, Incontinent of stool Improves with: Rest Worsened by: Movement Similar symptoms before: No diagnosis Recently seen: Emergency Dept (4 days ago for unrelated c/o) - Additional information Additional information: c/o right LBP. while awaiting evaluation, she says her back suddenly popped while walking back from bathroom and this was associated with sudden dramatic improvement in her back pain. by the time of this evaluation, she says the pain is nearly resolved Review of Systems GI: reports: Reviewed and negative : denies: Dysuria, Frequency, Incontinent Musculoskeletal: reports: Back pain Neurologic: denies: Focal weakness, Numbness PD PAST MEDICAL HISTORY - Past Medical History Cardiovascular: Hypertension Respiratory: Asthma, COPD Neuro: Seizure disorder Endocrine/Autoimmune: Type 2 diabetes GI: GERD PLUSH WEAVER: Ovarian cysts : Incontinence HEENT: None Psych: Bipolar disorder Musculoskeletal: Osteoarthritis, Osteoporosis Derm: Other drug resistant infections - Past Surgical History Past Surgical History: Yes General: Cholecystectomy /PLUSH WEAVER: Tubal ligation, Other HEENT: Tonsil/Adenoidectomy, Other - Present Medications Home Medications: Ambulatory Orders Medication Instructions Recorded Confirmed Zonisamide [Zonegran] 200 mg PO BID 12/02/16 10/12/18 Metformin HCl 1,000 mg PO BIDWM 02/15/17 10/12/18 acetaZOLAMIDE [Acetazolamide ER] 1,000 mg PO BID 02/15/17 10/12/18 Atorvastatin Calcium 40 mg PO QPM 05/26/17 10/12/18 Albuterol Sulfate [Proventil Hfa 1 - 2 puffs IH Q4H PRN #1 11/26/17 10/12/18 Inhaler] hfa.aer.ad Meloxicam [Mobic] 15 mg PO DAILY PRN #20 tablet 08/19/18 10/12/18 Ciprofloxacin [Cipro] 250 mg PO Q12H #10 tablet 10/12/18 Methocarbamol 1 tab ORAL TID 10/12/18 10/12/18 Pantoprazole [Protonix] 1 tab ORAL DAILY 10/12/18 10/12/18 Promethazine [Phenergan] 25 mg PO Q6H PRN #10 tab 10/12/18 Oxycodone HCl/Acetaminophen 1 - 2 each PO Q6H PRN #14 tablet 11/13/18 [Percocet 5-325 mg Tablet] - Allergies Allergies/Adverse Reactions: Allergies Allergy/AdvReac Type Severity Reaction Status Date / Time Latex, Natural Rubber Allergy Mild Rash Verified 11/17/18 22:35 acetaminophen [From Vicodin] Allergy Hives Verified 11/17/18 22:35 hydrocodone bitartrate * Allergy Hives Verified 11/17/18 22:35 [From Vicodin] Penicillins Allergy Rash Verified 11/17/18 22:35 tramadol Allergy Rash Verified 11/17/18 22:35 adhesive AdvReac Intermediate chemical Verified 11/17/18 22:35 logan haloperidol [From Haldol] AdvReac Unknown Hallucinati Verified 11/17/18 22:35 ons iodine AdvReac Unknown Rash Verified 11/17/18 22:35 latex AdvReac Unknown Respiratory Verified 11/17/18 22:35 lamotrigine [From Lamictal] AdvReac Rash Verified 11/17/18 22:35 varenicline tartrate * AdvReac Hallucinati Verified 11/13/18 21:04 [From Chantix] ons steriods AdvReac Intermediate Unknown Uncoded 11/13/18 21:04 - Social History Does the pt smoke?: Yes Smoking Status: Current every day smoker Does the pt drink ETOH?: Yes Does the pt have substance abuse?: Yes - Immunizations Immunizations are current?: No - POLST Patient has POLST: No POLST Status: Full Code PD ED PE NORMAL - Vitals Vital signs reviewed: Yes - General General: Alert and oriented X 3, No acute distress, Well developed/nourished - Back Back: No CVA TTP, No spinal TTP - Derm Derm: Normal color - Extremities Extremities: No edema - Neuro Neuro: No motor deficit, No sensory deficit Results - Vitals Vitals: Oxygen O2 Source Room air PD MEDICAL DECISION MAKING - ED course Complexity details: considered differential, d/w patient Departure - Departure Disposition: 01 Home, Self Care Clinical Impression: Back pain Qualifiers: Back pain location: low back pain Chronicity: acute Back pain laterality: right Sciatica presence: with sciatica Sciatica laterality: sciatica of right side Qualified Code(s): M54.41 - Lumbago with sciatica, right side Condition: Good Health Concerns: Back pain Plan of Treatment: Follow up with PCP Assessment: See diagnoses Instructions: ED Sciatica Follow-Up: Cassia Main PA [Primary Care Provider] - Discharge Date/Time: 11/18/18 00:28
[2018-11-18 00:29] VITALS: BP 154/68
== END 2018-11-18 00:28 | disposition home or self-care (01) ==
LOC: EDUNIT# → ED 22:24
DX: M54.41 Lumbago with sciatica, right side (principal); I10 Essential (primary) hypertension; E11.9 Type 2 diabetes mellitus without complications; Z79.84 Long term (current) use of oral hypoglycemic drugs; F17.200 Nicotine dependence, unspecified, uncomplicated
CPT/HCPCS: 99282; 99283

== ENCOUNTER 2018-11-18 14:31 | Outpatient (CLI) | payer MEDICARE, MEDICAID ==
[2018-11-18 23:32] LABS: CANDIDA GROUP DNA NEGATIVE (NEGATIVE); CANDIDA KRUSEI DNA NEGATIVE (NEGATIVE); TRICHOMONAS VAGINALIS DNA NEGATIVE (NEGATIVE)
== END 2018-11-18 23:59 | disposition home or self-care (01) ==
LOC: LAB.R 14:31
PROVIDERS: ATTEND Obstetrics & Gynecology
DX: Z01.812 Encounter for preprocedural laboratory examination (principal); Z22.322 Carrier or suspected carrier of Methicillin resistant Staphylococcus aureus; R10.2 Pelvic and perineal pain
CPT/HCPCS: 87640; 87661; 87801

== ENCOUNTER 2018-11-22 16:45 | Emergency (ER) | payer MEDICARE, MEDICAID ==
[2018-11-22] MEDS ORDERED: KETOROLAC 60 MG/2 ML VIAL IM STA (18:45)
--- NOTE | 2018-11-22 18:53 | ED Physician Documentation ---
PD HPI SEIZURE - Stated complaint Stated Complaint: SEIZURE,MIGRAINE - Chief complaint Chief Complaint: Neuro - History obtained from History obtained from: Patient, Family - History of Present Illness Timing - onset: How many hours ago (1) Witnessed: Witnessed Number of seizures: Single, Lasted - seconds (10-20) Description of seizure activity: Generalized, Tonic clonic Injury during seizure: Head injury, Other (L shoulder pain, L facial pain) Pain level max: 10 Pain level now: 10 Associated symptoms: Headache History of seizures: Known seizure disorder Contributing factors: No: Off meds, Out of meds, Changed meds, Low blood sugar, Head injury, Substance abuse, EtOH withdrawal, Benzo withdrawal, Overdose, Fever, Sleep deprivation 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: Other (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) Similar symptoms before: Diagnosis (chronic migraines.) Recently seen: Other (well known to this ED and surrouding ED's for frequent v isits) Review of Systems Ten Systems: 10 systems reviewed and negative Constitutional: denies: Fever, Chills Ears: denies: Ear pain Respiratory: denies: Cough GI: denies: Vomiting Skin: denies: Rash Musculoskeletal: denies: Neck pain, Back pain Neurologic: denies: Focal weakness, Numbness PD PAST MEDICAL HISTORY - Past Medical History Past Medical History: Yes Cardiovascular: Hypertension Respiratory: Asthma, COPD Neuro: Seizure disorder Endocrine/Autoimmune: Type 2 diabetes GI: GERD 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: Ovarian cysts : Incontinence HEENT: None Psych: Bipolar disorder Musculoskeletal: Osteoarthritis, Osteoporosis Derm: Other drug resistant infections - Past Surgical History Past Surgical History: Yes General: Cholecystectomy /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: Tubal ligation, Other HEENT: Tonsil/Adenoidectomy, Other - Present Medications Home Medications: Ambulatory Orders Medication Instructions Recorded Confirmed Zonisamide [Zonegran] 200 mg PO BID 12/02/16 10/12/18 Metformin HCl 1,000 mg PO BIDWM 02/15/17 10/12/18 acetaZOLAMIDE [Acetazolamide ER] 1,000 mg PO BID 02/15/17 10/12/18 Atorvastatin Calcium 40 mg PO QPM 05/26/17 10/12/18 Albuterol Sulfate [Proventil Hfa 1 - 2 puffs IH Q4H PRN #1 11/26/17 10/12/18 Inhaler] hfa.aer.ad Meloxicam [Mobic] 15 mg PO DAILY PRN #20 tablet 08/19/18 10/12/18 Ciprofloxacin [Cipro] 250 mg PO Q12H #10 tablet 10/12/18 Methocarbamol 1 tab ORAL TID 10/12/18 10/12/18 Pantoprazole [Protonix] 1 tab ORAL DAILY 10/12/18 10/12/18 Promethazine [Phenergan] 25 mg PO Q6H PRN #10 tab 10/12/18 Oxycodone HCl/Acetaminophen 1 - 2 each PO Q6H PRN #14 tablet 11/13/18 [Percocet 5-325 mg Tablet] - Allergies Allergies/Adverse Reactions: Allergies Allergy/AdvReac Type Severity Reaction Status Date / Time Latex, Natural Rubber Allergy Mild Rash Verified 11/22/18 17:08 acetaminophen [From Vicodin] Allergy Hives Verified 11/22/18 17:08 hydrocodone bitartrate * Allergy Hives Verified 11/22/18 17:08 [From Vicodin] Penicillins Allergy Rash Verified 11/22/18 17:08 tramadol Allergy Rash Verified 11/22/18 17:08 adhesive AdvReac Intermediate chemical Verified 11/22/18 17:08 logan haloperidol [From Haldol] AdvReac Unknown Hallucinati Verified 11/22/18 17:08 ons iodine AdvReac Unknown Rash Verified 11/22/18 17:08 latex AdvReac Unknown Respiratory Verified 11/22/18 17:08 lamotrigine [From Lamictal] AdvReac Rash Verified 11/22/18 17:08 varenicline tartrate * AdvReac Hallucinati Verified 11/13/18 21:04 [From Chantix] ons steriods AdvReac Intermediate Unknown Uncoded 11/13/18 21:04 - Social History Does the pt smoke?: Yes Smoking Status: Current every day smoker Does the pt drink ETOH?: Yes Does the pt have substance abuse?: Yes Substance Use and Type: Marijuana - Immunizations Immunizations are current?: No - POLST Patient has POLST: No POLST Status: Full Code PD ED PE NORMAL - Vitals Vital signs reviewed: Yes - General General: Alert and oriented X 3, No acute distress, Well developed/nourished - HEENT HEENT: Atraumatic, PERRL, Moist mucous membranes, Other (Tender to palpation over the left buddhism as well as the left mandibular ramus) - Neck Neck: Supple, no meningeal sign, No bony TTP - Cardiac Cardiac: RRR - Respiratory Respiratory: No respiratory distress, Clear bilaterally - Abdomen Abdomen: Soft, Non tender, Non distended - Back Back: No spinal TTP - Derm Derm: Warm and dry - Extremities Extremities: No deformity, Other (Tender to palpation over the left shoulder, limited range of motion secondary to pain. Neurovascular intact. No deformity.) - Neuro Neuro: Alert and oriented X 3, director of sustainability 2-12 intact, No motor deficit, No sensory deficit, Normal speech Eye Opening: Spontaneous Motor: Obeys Commands Verbal: Oriented GCS Score: 15 - Psych Psych: Normal mood, Normal affect Results - Vitals Vitals: Vital Signs - 24 hr 11/22/18 11/22/18 11/22/18 17:05 17:23 19:48 Temperature 36.9 C 37.0 C Heart Rate 85 87 60 Respiratory 20 16 20 Rate Blood Pressure 116/68 129/86 H 100/57 L O2 Saturation 96 100 98 Oxygen O2 Source Room air - Rads (name of study) Head CT Radiology: Prelim report reviewed, EMP read contemporaneously, See rad report (No acute abnormality) Maxillofacial CT Radiology: Prelim report reviewed, EMP read contemporaneously, See rad report (No acute abnormality) Left shoulder x-ray Radiology: Prelim report reviewed, EMP read contemporaneously, See rad report (Subluxation of the left shoulder. No fracture or dislocation) PD MEDICAL DECISION MAKING - ED course Complexity details: reviewed results, re-evaluated patient, considered differential, d/w patient, d/w family ED course: Symptoms resolved with Toradol. No acute findings on x-ray, head CT or cervical spine CT. She is using the left shoulder freely upon repeat evaluation. Suspect chronic subluxation. Neurovascularly intact. Patient counseled regarding signs and symptoms for which I believe and urgent re-evaluation would be necessary. Patient with good understanding of and agreement to plan and is co mfortable going home at this time This document was made in part using voice recognition software. While efforts are made to proofread this document, sound alike and grammatical errors may occur. Patient refuses any blood work or urine. Departure - Departure Disposition: Home, Self Care Clinical Impression: Seizure Shoulder subluxation, left Qualifiers: Encounter type: initial encounter Qualified Code(s): S43.002A - Unspecified subluxation of left shoulder joint, initial encounter Headache Qualifiers: Headache type: unspecified Headache chronicity pattern: acute headache Intractability: not intractable Qualified Code(s): R51 - Headache Condition: Good Instructions: ED Headache Migraine, ED Sprain Shoulder Follow-Up: Cassia Main PA [Primary Care Provider] - Within 1 week Comments: Follow-up with your doctor for further care. Return if you worsen. Discharge Date/Time: 11/22/18 20:00
--- NOTE | 2018-11-22 19:03 | CT Report ---
Reason: headache s/p seizure Procedure Date: 11/22/2018 Accession Number: [id number] / [id number] Procedure: CT - HEAD WO CPT Code: FULL RESULT: EXAM: CT HEAD EXAM DATE: 11/22/2018 06:50 PM. CLINICAL HISTORY: Headache s/p seizure. COMPARISON: HEAD W/O 05/13/2018 7:57 PM. TECHNIQUE: Multiaxial CT images were obtained from the foramen magnum to the vertex. Reformats: Sagittal and coronal. IV contrast: None. In accordance with CT protocol optimization, one or more of the following dose reduction techniques were utilized for this exam: automated exposure control, adjustment of mA and/or KV based on patient size, or use of iterative reconstructive technique. FINDINGS: Parenchyma: No intraparenchymal hemorrhage. No evidence of mass, midline shift, or CT findings of infarction. Mejia-white differentiation is distinct. Extraaxial Spaces: Normal for age. No subdural or epidural collections identified. Ventricles: Normal in size and position. Sinuses and Orbits: Imaged paranasal sinuses, orbits, and mastoids show no significant abnormality. Bones: No evidence of fracture or calvarial defect. Other: None. IMPRESSION: Negative nonenhanced head CT. [facility]
--- NOTE | 2018-11-22 19:08 | CT Report ---
Reason: facial pain s/p seizure Procedure Date: 11/22/2018 Accession Number: [id number] / [id number] Procedure: CT - MAXILLOFACIAL WO CPT Code: FULL RESULT: EXAM: CT MAXILLOFACIAL WITHOUT CONTRAST EXAM DATE: 11/22/2018 06:50 PM. CLINICAL HISTORY: Facial pain s/p seizure. COMPARISONS: HEAD W/O 05/13/2018 7:57 PM. TECHNIQUE: Thin-section axial images were acquired of the face without contrast. Post-processing: Coronal and sagittal reformats. Other: None. In accordance with CT protocol optimization, one or more of the following dose reduction techniques were utilized for this exam: automated exposure control, adjustment of mA and/or KV based on patient size, or use of iterative reconstructive technique. FINDINGS: Soft Tissue: The infratemporal fossa and parapharyngeal spaces are unremarkable. Orbits: Symmetric and unremarkable. Bones: The patient is edentulous. There is no fracture or bony destruction. Temporomandibular Joints: Satisfactory alignment at temporal mandibular joints. Sinuses: Normal. No mucosal thickening or fluid levels. Other: None. IMPRESSION: Negative [facility]
--- NOTE | 2018-11-22 19:22 | XRAY Report ---
Reason: L shoulder pain s/p seizure Procedure Date: 11/22/2018 Accession Number: [id number] / [id number] Procedure: XR - Shoulder 3 View LT CPT Code: FULL RESULT: EXAM: LEFT SHOULDER RADIOGRAPHY EXAM DATE: 11/22/2018 07:08 PM. CLINICAL HISTORY: L shoulder pain s/p seizure. COMPARISON: SHOULDER 3 VIEW LT 04/13/2017 9:02 PM. TECHNIQUE: 3 views. FINDINGS: Bones: No acute fracture. Joints: There is inferior subluxation of the humeral head at the glenohumeral joint. Soft tissues: No pneumothorax. IMPRESSION: Inferior subluxation of humeral head at glenohumeral joint. No dislocation or fracture. [facility]
[2018-11-22 19:49] VITALS: BP 100/57
== END 2018-11-22 20:00 | disposition home or self-care (01) ==
LOC: ED 16:45
DX: G40.909 Epilepsy, unspecified, not intractable, without status epilepticus (principal); S43.002A Unspecified subluxation of left shoulder joint, initial encounter; R51 Headache; I10 Essential (primary) hypertension; E11.9 Type 2 diabetes mellitus without complications; F17.200 Nicotine dependence, unspecified, uncomplicated; Z79.84 Long term (current) use of oral hypoglycemic drugs
CPT/HCPCS: 70450; 70486; 80053; 83690; 85025; 96372; 99284

== ENCOUNTER 2018-12-11 13:45 | Emergency (ER) | payer MEDICARE, MEDICAID ==
[2018-12-11 13:52] VITALS: BP 131/68
--- NOTE | 2018-12-11 14:28 | ED Physician Documentation ---
History of Present Illness - Stated complaint Stated Complaint: BODY PX - Chief complaint Chief Complaint: Ext Problem - History obtained from History obtained from: Patient - Additonal information Additional information: Patient is a 38-year-old female with multiple comorbidities and extremely well- known to the ED presenting with generalized pain complaint. Patient states she has pain from her head to her pelvis without particular inciting incident, fall, or trauma. Patient has difficulty specifying her pain otherwise. Patient also reports mild shortness of breath without productive cough or fever. Patient does believe she has had some wheezing. Patient reports nausea without vomiting. She has urinary incontinence at baseline which she feels is worse than usual, but denies stool changes. No other improving or worsening factors noted. Review of Systems Constitutional: denies: Fever Respiratory: reports: Dyspnea. denies: Cough GI: reports: Nausea. 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: Ovarian cysts : Incontinence HEENT: None Psych: Bipolar disorder Musculoskeletal: Osteoarthritis, Osteoporosis Derm: Other drug resistant infections - Past Surgical History Past Surgical History: Yes General: Cholecystectomy /BILINGUAL SPANISH INBOUND SALES: Tubal ligation, Other HEENT: Tonsil/Adenoidectomy, Other - Present Medications Home Medications: Ambulatory Orders Medication Instructions Recorded Confirmed Zonisamide [Zonegran] 200 mg PO BID 12/02/16 10/12/18 Metformin HCl 1,000 mg PO BIDWM 02/15/17 10/12/18 acetaZOLAMIDE [Acetazolamide ER] 1,000 mg PO BID 02/15/17 10/12/18 Atorvastatin Calcium 40 mg PO QPM 05/26/17 10/12/18 Albuterol Sulfate [Proventil Hfa 1 - 2 puffs IH Q4H PRN #1 11/26/17 10/12/18 Inhaler] hfa.aer.ad Meloxicam [Mobic] 15 mg PO DAILY PRN #20 tablet 08/19/18 10/12/18 Ciprofloxacin [Cipro] 250 mg PO Q12H #10 tablet 10/12/18 Methocarbamol 1 tab ORAL TID 10/12/18 10/12/18 Pantoprazole [Protonix] 1 tab ORAL DAILY 10/12/18 10/12/18 Promethazine [Phenergan] 25 mg PO Q6H PRN #10 tab 10/12/18 Oxycodone HCl/Acetaminophen 1 - 2 each PO Q6H PRN #14 tablet 11/13/18 [Percocet 5-325 mg Tablet] - Allergies Allergies/Adverse Reactions: Allergies Allergy/AdvReac Type Severity Reaction Status Date / Time Latex, Natural Rubber Allergy Mild Rash Verified 12/11/18 13:50 acetaminophen [From Vicodin] Allergy Hives Verified 12/11/18 13:50 hydrocodone bitartrate * Allergy Hives Verified 12/11/18 13:50 [From Vicodin] Penicillins Allergy Rash Verified 12/11/18 13:50 tramadol Allergy Rash Verified 12/11/18 13:50 adhesive AdvReac Intermediate chemical Verified 12/11/18 13:50 logan haloperidol [From Haldol] AdvReac Unknown Hallucinati Verified 12/11/18 13:50 ons iodine AdvReac Unknown Rash Verified 12/11/18 13:50 latex AdvReac Unknown Respiratory Verified 12/11/18 13:50 lamotrigine [From Lamictal] AdvReac Rash Verified 12/11/18 13:50 varenicline tartrate * AdvReac Hallucinati Verified 12/11/18 13:51 [From Chantix] ons steriods AdvReac Intermediate Unknown Uncoded 11/13/18 21:04 - Social History Does the pt smoke?: Yes Smoking Status: Current every day smoker Does the pt drink ETOH?: Yes Does the pt have substance abuse?: Yes - Immunizations Immunizations are current?: No - POLST Patient has POLST: No POLST Status: Full Code PD ED PE NORMAL - Vitals Vital signs reviewed: Yes - General General: Alert and oriented X 3, No acute distress, Well developed/nourished - HEENT HEENT: Atraumatic, Moist mucous membranes - Neck Neck: Supple, no meningeal sign - Cardiac Cardiac: RRR, No murmur - Respiratory Respiratory: No respiratory distress, Clear bilaterally - Abdomen Abdomen: Normal bowel sounds, Soft, Non tender, Non distended - Derm Derm: Normal color, Warm and dry, No rash - Extremities Extremities: No deformity, No tenderness to palpate - Neuro Neuro: Alert and oriented X 3, No motor deficit, No sensory deficit, Other (Normal gait) - Psych Psych: Normal mood, Normal affect Results - Vitals Vitals: Vital Signs - 24 hr 12/11/18 13:47 Temperature 36.2 C L Heart Rate 77 Respiratory 18 Rate Blood Pressure 131/68 H O2 Saturation 100 Oxygen O2 Source Room air PD MEDICAL DECISION MAKING - ED course Complexity details: reviewed old records, considered differential, d/w patient ED course: Patient presenting with generalized pain complaint forNearly her entire body. No particular inciting incident or trauma do not find evidence of trauma on exam. Additionally do not find evidence of systemic illness or neurological deficit. Her complaints do not align with particular medical etiology or pathology. Patient also complained of other issues including shortness of breath and wheezing although none found on pulmonary exam. Did offer DuoNeb, as well as chest x-ray to further evaluate for possible pathology including pneumonia, however patient declined. Also offered urine testing given worsening of baseline incontinence, as well as EKG given generalized pain. Patient again declined. She feels that she can go to the chiropractor at this time. Discussed return precautions, supportive cares, and follow-up. Departure - Departure Disposition: 01 Home, Self Care Clinical Impression: Pain Condition: Good Instructions: ED Chronic Pain Management Follow-Up: Cassia Main PA [Primary Care Provider] - Within 3 Days Comments: Please continue any home medications as previously instructed. Follow-up with primary care physician in next 2 to 3 days and return to ED sooner if experience worsening symptoms or have other concerns.
== END 2018-12-11 14:50 | disposition home or self-care (01) ==
LOC: EDUNIT# → ED 13:45
DX: R52 Pain, unspecified (principal); I10 Essential (primary) hypertension; E11.9 Type 2 diabetes mellitus without complications; F17.200 Nicotine dependence, unspecified, uncomplicated; Z79.84 Long term (current) use of oral hypoglycemic drugs
CPT/HCPCS: 99282

== ENCOUNTER 2018-12-13 19:03 | Outpatient (CLI) | payer MEDICARE, MEDICAID | END 2018-12-13 19:04 | disposition home or self-care (01) | LOC: SC 19:03 | PROVIDERS: ATTEND Internal Medicine Pulmonary Disease | DX: G47.33 Obstructive sleep apnea (adult) (pediatric) (principal); G47.61 Periodic limb movement disorder | CPT/HCPCS: 95810 ==

== ENCOUNTER 2018-12-23 20:36 | Emergency (ER) | payer MEDICARE, MEDICAID ==
[2018-12-23 20:42] VITALS: BP 123/87
[2018-12-23] MEDS ORDERED: IPRATROPIUM/ALBUTEROL 3 ML NEB INH STA (20:44)
[2018-12-23] MEDS ORDERED: oxyCODONE 5 MG TABLET PO STA (20:48)
[2018-12-23] MEDS ORDERED: SODIUM CHLORIDE INHALATION 3 ML NEB INH STA (20:50)
--- NOTE | 2018-12-23 20:50 | ED Physician Documentation ---
History of Present Illness - Stated complaint Stated Complaint: SOA - Chief complaint Chief Complaint: Resp - History obtained from History obtained from: Patient - History of Present Illness Timing: Other (This is a 38-year-old woman with relatively complicated medical history given her young age including but not limited to type 2 diabetes, pseudoseizures, idiopathic intracranial hypertension, tobacco abuse, and asthma/COPD. She is had 2 days of increasing shortness of breath with a minimally productive cough and sore throat. No fevers are noted. Her has not been sick with any respiratory illness. She is been using her inhaler increasingly without relief. As a general rule she cannot take steroids because it makes her blood sugars go high and because it makes her intracranial hy pertension worse.) Review of Systems Constitutional: reports: Fatigue. 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: Ovarian cysts : Incontinence HEENT: None Psych: Bipolar disorder Musculoskeletal: Osteoarthritis, Osteoporosis Derm: Other drug resistant infections - Past Surgical History Past Surgical History: Yes General: Cholecystectomy /CATALYST CONCENTRATION OPERATOR: Tubal ligation, Other HEENT: Tonsil/Adenoidectomy, Other - Present Medications Home Medications: Ambulatory Orders Medication Instructions Recorded Confirmed Zonisamide [Zonegran] 200 mg PO BID 12/02/16 10/12/18 Metformin HCl 1,000 mg PO BIDWM 02/15/17 10/12/18 acetaZOLAMIDE [Acetazolamide ER] 1,000 mg PO BID 02/15/17 10/12/18 Atorvastatin Calcium 40 mg PO QPM 05/26/17 10/12/18 Albuterol Sulfate [Proventil Hfa 1 - 2 puffs IH Q4H PRN #1 11/26/17 10/12/18 Inhaler] hfa.[email or web address] Meloxicam [Mobic] 15 mg PO DAILY PRN #20 tablet 08/19/18 10/12/18 Ciprofloxacin [Cipro] 250 mg PO Q12H #10 tablet 10/12/18 Methocarbamol 1 tab ORAL TID 10/12/18 10/12/18 Pantoprazole [Protonix] 1 tab ORAL DAILY 10/12/18 10/12/18 Promethazine [Phenergan] 25 mg PO Q6H PRN #10 tab 10/12/18 Oxycodone HCl/Acetaminophen 1 - 2 each PO Q6H PRN #14 tablet 11/13/18 [Percocet 5-325 mg Tablet] Doxycycline Hyclate 100 mg PO BID #14 capsule 12/23/18 - Allergies Allergies/Adverse Reactions: Allergies Allergy/AdvReac Type Severity Reaction Status Date / Time Latex, Natural Rubber Allergy Mild Rash Verified 12/23/18 20:42 acetaminophen [From Vicodin] Allergy Hives Verified 12/23/18 20:42 hydrocodone bitartrate * Allergy Hives Verified 12/23/18 20:42 [From Vicodin] Penicillins Allergy Rash Verified 12/23/18 20:42 tramadol Allergy Rash Verified 12/23/18 20:42 adhesive AdvReac Intermediate chemical Verified 12/23/18 20:42 logan haloperidol [From Haldol] AdvReac Unknown Hallucinati Verified 12/23/18 20:42 ons iodine AdvReac Unknown Rash Verified 12/23/18 20:42 latex AdvReac Unknown Respiratory Verified 12/23/18 20:42 lamotrigine [From Lamictal] AdvReac Rash Verified 12/23/18 20:42 [email or web address] tartrate * AdvReac Hallucinati Verified 12/23/18 20:42 [From Chantix] ons steriods AdvReac Intermediate Unknown Uncoded 11/13/18 21:04 - Social History Does the pt smoke?: Yes Smoking Status: Current every day smoker Does the pt drink ETOH?: Yes Does the pt have substance abuse?: Yes - Immunizations Immunizations are current?: No - POLST Patient has POLST: No POLST Status: Full Code PD ED PE NORMAL - Vitals Vital signs reviewed: Yes - General General: Alert and oriented X 3, No acute distress - HEENT HEENT: Pharynx benign (Mildly red tonsillar pillars but her tonsils and uvula are surgically absent) - Neck Neck: Supple, no meningeal sign, No bony TTP - Cardiac Cardiac: RRR, No murmur - Respiratory Respiratory: Other (Minimally labored breathing but speaking in full sentences, bronchitic frequent cough, somewhat tight and wheezy lungs, rhonchorous throughout without clear focal findings.) - Abdomen Abdomen: Normal bowel sounds, Soft, Non tender - Extremities Extremities: No edema, No calf tenderness / cord - Neuro Neuro: Alert and oriented X 3, Normal speech Results - Vitals Vitals: Vital Signs - 24 hr 12/23/18 12/23/18 20:38 20:54 Temperature 36.3 C L Heart Rate 98 98 Respiratory 22 18 Rate Blood Pressure 123/87 H O2 Saturation 98 Oxygen O2 Source Room air - Rads (name of study) 1v chest Radiology: EMP read contemporaneously (NAD) PD MEDICAL DECISION MAKING - ED course ED course: 38-year-old woman with history of asthma, heavy tobacco abuse, presumed some element of underlying COPD presents with bronchitic cough and shortness of br eath. Her oxygen saturations are okay and her chest x-ray is clear. Steroids are avoided both because of the diabetes and intracranial hypertension. Departure - Departure Disposition: 01 Home, Self Care Clinical Impression: Bronchitis Hyperglycemia due to type 2 diabetes mellitus Qualifiers: Diabetes mellitus prison insulin use: without prison use Qualified Code(s): E11.65 - Type 2 diabetes mellitus with hyperglycemia Condition: Stable Record reviewed to determine appropriate education?: Yes Instructions: ED Upper Resp Infec Abx Tx Prescriptions: Doxycycline Hyclate 100 mg PO BID #14 capsule Comments: Return anytime if worse or if new symptoms develop. Continue other current medications. Follow-up with your neurologist regarding your seizures/pseudoseizures and intracranial hypertension. Please try to quit smoking,
--- NOTE | 2018-12-23 21:18 | XRAY Report ---
Reason: cough Procedure Date: 12/23/2018 Accession Number: [id number] / [id number] Procedure: XR - Chest 1 View X-Ray CPT Code: 48718 FULL RESULT: EXAM: CHEST RADIOGRAPHY EXAM DATE: 12/23/2018 08:59 PM. CLINICAL HISTORY: Cough. COMPARISON: CHEST 2 VIEW 11/13/2018 9:29 PM. TECHNIQUE: 1 view. FINDINGS: Lungs/Pleura: No dense consolidation. No large effusion or pneumothorax. No pulmonary edema. Mediastinum: Heart and mediastinal contours are unremarkable. Other: None. IMPRESSION: No acute radiographic pulmonary abnormalities. RADIA
[2018-12-23] MEDS ORDERED: LEVALBUTEROL 1.25 MG/3 ML NEB INH STA (21:37)
[2018-12-23] MEDS ORDERED: DOXYCYCLINE 100 MG TABLET PO STA (21:37)
== END 2018-12-23 22:15 | disposition home or self-care (01) ==
LOC: ED 20:36
DX: J44.9 Chronic obstructive pulmonary disease, unspecified (principal); F17.200 Nicotine dependence, unspecified, uncomplicated; E11.65 Type 2 diabetes mellitus with hyperglycemia; Z79.84 Long term (current) use of oral hypoglycemic drugs; G93.2 Benign intracranial hypertension
CPT/HCPCS: 71045; 94640; 99284; A9270

== ENCOUNTER 2018-12-25 16:51 | Emergency (ER) | payer MEDICARE, MEDICAID ==
[2018-12-25 17:04] VITALS: BP 130/112
--- NOTE | 2018-12-25 17:28 | ED Physician Documentation ---
History of Present Illness - Stated complaint Stated Complaint: RASH ON LEGS - Chief complaint Chief Complaint: Wound - History obtained from History obtained from: Patient - Additonal information Additional information: This is a 38-year-old female with a history of COPD/asthma, type 2 diabetes, seizure disorder, who presents with a rash for the past 3 days. Patient states that she began having some itchy red spots on her left and right thighs 3 days ago, these have increased somewhat in size. She has been taking Benadryl intermittently with some relief of the itchiness. She denies any lesions on her torso or face, no lesions in her mouth, eyes, or perineal area. No shortness of breath, no cough, no fever. She states she had a similar rash to this in the past and her doctor did not know what the cause was, but it resolved on its own. She denies any IV drug use. She is currently on bactrim for a diagnosed bronchitis. 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: Ovarian cysts : Incontinence HEENT: None Psych: Bipolar disorder Musculoskeletal: Osteoarthritis, Osteoporosis Derm: Other drug resistant infections - Past Surgical History Past Surgical History: Yes General: Cholecystectomy /VOICE ENGINEER: Tubal ligation, Other HEENT: Tonsil/Adenoidectomy, Other - Present Medications Home Medications: Ambulatory Orders Medication Instructions Recorded Confirmed RX: Zonisamide [Zonegran] 200 mg PO BID 12/02/16 10/12/18 RX: Metformin HCl 1,000 mg PO BIDWM 02/15/17 10/12/18 RX: acetaZOLAMIDE [Acetazolamide 1,000 mg PO BID 02/15/17 10/12/18 ER] RX: Atorvastatin Calcium 40 mg PO QPM 05/26/17 10/12/18 RX: Albuterol Sulfate [Proventil 1 - 2 puffs IH Q4H PRN #1 11/26/17 10/12/18 Hfa Inhaler] hfa.aer.ad Meloxicam [Mobic] 15 mg PO DAILY PRN #20 tablet 08/19/18 10/12/18 Pantoprazole [Protonix] 1 tab ORAL DAILY 10/12/18 10/12/18 Promethazine [Phenergan] 25 mg PO Q6H PRN #10 tab 10/12/18 RX: Ciprofloxacin [Cipro] 250 mg PO Q12H #10 tablet 10/12/18 RX: Methocarbamol 1 tab ORAL TID 10/12/18 10/12/18 Oxycodone HCl/Acetaminophen 1 - 2 each PO Q6H PRN #14 tablet 11/13/18 [Percocet 5-325 mg Tablet] RX: Doxycycline Hyclate 100 mg PO BID #14 capsule 12/23/18 RX: Loratadine [Allergy Relief] 10 mg PO DAILY #10 tablet 12/25/18 - Allergies Allergies/Adverse Reactions: Allergies Allergy/AdvReac Type Severity Reaction Status Date / Time Latex, Natural Rubber Allergy Mild Rash Verified 12/23/18 20:42 acetaminophen [From Vicodin] Allergy Hives Verified 12/23/18 20:42 hydrocodone bitartrate * Allergy Hives Verified 12/23/18 20:42 [From Vicodin] Penicillins Allergy Rash Verified 12/23/18 20:42 tramadol Allergy Rash Verified 12/23/18 20:42 adhesive AdvReac Intermediate chemical Verified 12/23/18 20:42 logan haloperidol [From Haldol] AdvReac Unknown Hallucinati Verified 12/23/18 20:42 ons iodine AdvReac Unknown Rash Verified 12/23/18 20:42 latex AdvReac Unknown Respiratory Verified 12/23/18 20:42 lamotrigine [From Lamictal] AdvReac Rash Verified 12/23/18 20:42 [email or web address] tartrate * AdvReac Hallucinati Verified 12/23/18 20:42 [From Chantix] ons steriods AdvReac Intermediate Unknown Uncoded 11/13/18 21:04 - Social History Does the pt smoke?: Yes Smoking Status: Current every day smoker Does the pt drink ETOH?: Yes Does the pt have substance abuse?: Yes - Immunizations Immunizations are current?: No - POLST Patient has POLST: No POLST Status: Full Code PD ED PE NORMAL - Vitals Vital signs reviewed: Yes - General General: Alert and oriented X 3, No acute distress - HEENT HEENT: PERRL - Neck Neck: Supple, no meningeal sign - Cardiac Cardiac: RRR, No murmur - Respiratory Respiratory: Other (No respiratory distress, lungs clear to ausculation bilaterally) - Abdomen Abdomen: Soft, Non tender, Non distended - Derm Derm: Other (Around 10 scattered erythematous, blanching lesions over the bilateral upper thighs, with central darkening. They vary in size from 0.5 to 3 cm in diameter. No pustules or necrosis. No mucous membrance involvement.) - Extremities Extremities: No deformity - Neuro Neuro: Alert and oriented X 3 - Psych Psych: Normal mood, Normal affect Results - Vitals Vitals: Vital Signs - 24 hr 12/25/18 17:03 Temperature 36.6 C Heart Rate 85 Respiratory 18 Rate Blood Pressure 130/112 H O2 Saturation 98 Oxygen O2 Source Room air PD MEDICAL DECISION MAKING - ED course Complexity details: considered differential (Drug reaction, alleric reaction, contact dermatitis, erythema multiforme, insect bite, cellulitis) ED course: Pt is well appearing, with unremarkable vital signs and a pruritic rash that has been present for 3 days in the setting of starting bactrim. She has no other symptoms, no signs of systemic involvement. No signs of SJS, disseminated infection on exam. The rash does not appear to be cellulitic, and it is pruritic, not tender. I discussed that this may be a reaction to her bactrim, it may be erythema multiforme. Given that she is very well appearing and the bactrim was for a bronchitis with very mild symptoms, we will stop the bactrim and trial antihistamines. I discussed she should return to the ED with any worsening, particularly fever, abdominal pain, dissemination of the rash, mucous membrane invovlement, or any other concerning symptoms. Pt agrees and was discharged home in the care of her partner. Departure - Departure Disposition: Home, Self Care Clinical Impression: Rash and nonspecific skin eruption, Foreign body entering through skin Condition: Good Instructions: Rash Skin Self Care Follow-Up: Cassia Main PA [Primary Care Provider] - Within 1 week Prescriptions: RX: Loratadine [Allergy Relief] 10 mg PO DAILY #10 tablet Comments: You were seen today for a rash. This may be an allergic reaction, or erythema multiforme, which is usually a reaction to a virus. Take an antihistamine such as loratadine or Benadryl and follow-up with her primary care provider. If the rash spreads, or you develop other symptoms such as difficulty breathing, involvement of the mouth, eyes, or vagina, fever, return to the emergency department immediately Discharge Date/Time: 12/25/18 18:33
== END 2018-12-25 18:33 | disposition home or self-care (01) ==
LOC: ED 16:51
DX: R21 Rash and other nonspecific skin eruption (principal); E11.9 Type 2 diabetes mellitus without complications; I10 Essential (primary) hypertension; F17.200 Nicotine dependence, unspecified, uncomplicated; Z79.84 Long term (current) use of oral hypoglycemic drugs
CPT/HCPCS: 99282; 99284

== ENCOUNTER 2019-01-03 12:00 | Outpatient (CLI) | payer MEDICARE, MEDICAID | END 2019-01-03 12:01 | disposition critical access hospital (66) | LOC: EMS 12:00 | PROVIDERS: ATTEND Surgery | DX: R51 Headache (principal); M54.2 Cervicalgia; M25.50 Pain in unspecified joint | CPT/HCPCS: A0425; A0429 ==

== ENCOUNTER 2019-01-03 12:05 | Emergency (ER) | payer MEDICARE, MEDICAID ==
--- NOTE | 2019-01-03 13:09 | ED Physician Documentation ---
History of Present Illness - Stated complaint Stated Complaint: JOYA - Chief complaint Chief Complaint: Neuro - History obtained from History obtained from: Patient - Additonal information Additional information: Patient is a 38-year-old female with multiple comorbidities and very well-known to the ED presenting with complaint of headache similar to her previous issues with migraine and her reported intracranial hypertension. Patient reports symptoms are similar to previous episodes with diffuse headache and photosensitivity but no other vision loss. Patient also complains of nausea without vomiting.Patient also complains of general myalgias, joint pains, and "cracking and popping" all over her body. No other improving or worsening factors noted. Review of Systems Constitutional: denies: Fever Eyes: reports: Photophobia. denies: Loss of vision Cardiac: denies: Chest pain / pressure Respiratory: denies: Dyspnea GI: reports: Nausea, Vomiting. 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: Ovarian cysts : Incontinence HEENT: None Psych: Bipolar disorder Musculoskeletal: Osteoarthritis, Osteoporosis Derm: Other drug resistant infections - Past Surgical History Past Surgical History: Yes General: Cholecystectomy /RIVET CATCHER: Tubal ligation, Other HEENT: Tonsil/Adenoidectomy, Other - Present Medications Home Medications: Ambulatory Orders Medication Instructions Recorded Confirmed Zonisamide [Zonegran] 200 mg PO BID 12/02/16 10/12/18 Metformin HCl 1,000 mg PO BIDWM 02/15/17 10/12/18 acetaZOLAMIDE [Acetazolamide ER] 1,000 mg PO BID 02/15/17 10/12/18 Atorvastatin Calcium 40 mg PO QPM 05/26/17 10/12/18 Albuterol Sulfate [Proventil Hfa 1 - 2 puffs IH Q4H PRN #1 11/26/17 10/12/18 Inhaler] hfa.aer.ad Meloxicam [Mobic] 15 mg PO DAILY PRN #20 tablet 08/19/18 10/12/18 Ciprofloxacin [Cipro] 250 mg PO Q12H #10 tablet 10/12/18 Methocarbamol 1 tab ORAL TID 10/12/18 10/12/18 Pantoprazole [Protonix] 1 tab ORAL DAILY 10/12/18 10/12/18 Promethazine [Phenergan] 25 mg PO Q6H PRN #10 tab 10/12/18 Oxycodone HCl/Acetaminophen 1 - 2 each PO Q6H PRN #14 tablet 11/13/18 [Percocet 5-325 mg Tablet] Doxycycline Hyclate 100 mg PO BID #14 capsule 12/23/18 Loratadine [Allergy Relief] 10 mg PO DAILY #10 tablet 12/25/18 - Allergies Allergies/Adverse Reactions: Allergies Allergy/AdvReac Type Severity Reaction Status Date / Time Latex, Natural Rubber Allergy Mild Rash Verified 01/03/19 12:13 acetaminophen [From Vicodin] Allergy Hives Verified 01/03/19 12:13 hydrocodone bitartrate * Allergy Hives Verified 01/03/19 12:13 [From Vicodin] Penicillins Allergy Rash Verified 01/03/19 12:13 tramadol Allergy Rash Verified 01/03/19 12:13 adhesive AdvReac Intermediate chemical Verified 01/03/19 12:13 logan haloperidol [From Haldol] AdvReac Unknown Hallucinati Verified 01/03/19 12:13 ons iodine AdvReac Unknown Rash Verified 01/03/19 12:13 latex AdvReac Unknown Respiratory Verified 01/03/19 12:13 lamotrigine [From Lamictal] AdvReac Rash Verified 01/03/19 12:13 [email or web address] tartrate * AdvReac Hallucinati Verified 01/03/19 12:13 [From Chantix] ons steriods AdvReac Intermediate Unknown Uncoded 01/03/19 12:13 - Social History Does the pt smoke?: Yes Smoking Status: Current every day smoker Does the pt drink ETOH?: Yes Does the pt have substance abuse?: Yes - Immunizations Immunizations are current?: No - POLST Patient has POLST: No POLST Status: Full Code PD ED PE NORMAL - Vitals Vital signs reviewed: Yes - General General: Alert and oriented X 3, Well developed/nourished. No: No acute distress (Slightly histrionic, tearful, covering herself with a blanket and shielding her eyes) - HEENT HEENT: Atraumatic, PERRL (Gross visual acuity intact. No nystagmus.), EOMI, Moist mucous membranes, Pharynx benign - Neck Neck: Supple, no meningeal sign - Cardiac Cardiac: RRR, No murmur - Respiratory Respiratory: No respiratory distress. No: Clear bilaterally (Decreased air movement throughout, as well as expiratory wheezing (chronic and similar to previous exams)) - Abdomen Abdomen: Soft, Non tender, Non distended - Derm Derm: Normal color, Warm and dry, No rash - Extremities Extremities: No deformity, No tenderness to palpate - Neuro Neuro: Alert and oriented X 3, No motor deficit, No sensory deficit - Psych Psych: Normal mood, Normal affect Results - Vitals Vitals: Vital Signs - 24 hr 01/03/19 12:10 Temperature 36.7 C Heart Rate 88 Respiratory 22 Rate Blood Pressure 139/93 H O2 Saturation 100 Oxygen O2 Source Room air PD MEDICAL DECISION MAKING - ED course Complexity details: re-evaluated patient, considered differential, d/w patient, d/w family ED course: Patient is well-known to the ED and often suffers from chronic pain issues. Although patient has history of intracranial hypertension, do not feel she is suffering acutely from this today. Feel this is more in line with her migraine-like headaches. Do not feel patient requires CT head imaging at this time given low suspicion for intracranial issue as stated above as well as low suspicion for aneurysm, thrombus, stroke, concussion, closed head injury and otherwise. Do not find evidence of meningitis or other systemic illness on exam. Physical exam is otherwise benign without evidence of trauma, infection, or neurological deficit. Patient received migraine cocktail in ED with near resolution of all symptoms. Upon reevaluation, patient sleeping comfortably. Advised on supportive cares, return precautions, appropriate follow-up. Otherwise, feel that patient is safe to discharge home. Departure - Departure Disposition: 01 Home, Self Care Clinical Impression: Migraine Condition: Good Instructions: ED Headache Migraine Follow-Up: Cassia Main PA [Primary Care Provider] - Within 3 Days Comments: Please continue home medications as previously instructed. Recommend follow-up with primary care physician in next 2 to 3 days and return to ED sooner if experience worsening symptoms or have other concerns.
[2019-01-03] MEDS ORDERED: diphenhydrAMINE INJ 50 MG/ML VIAL IVP STA (13:13)
[2019-01-03] MEDS ORDERED: SODIUM CHLORIDE 0.9% 1,000 ML IV ONE (13:13)
[2019-01-03] MEDS ORDERED: ONDANSETRON 4 MG/2 ML VIAL IVP STA (13:13)
[2019-01-03] MEDS ORDERED: METOCLOPRAMIDE 10 MG/2 ML VIAL IVP STA (13:13)
[2019-01-03] MEDS ORDERED: KETOROLAC 60 MG/2 ML VIAL IM STA (14:53)
[2019-01-03 15:03] VITALS: BP 134/76
== END 2019-01-03 15:16 | disposition home or self-care (01) ==
LOC: EDUNIT# → ED 12:05
DX: G43.909 Migraine, unspecified, not intractable, without status migrainosus (principal); I10 Essential (primary) hypertension; E11.9 Type 2 diabetes mellitus without complications; F17.200 Nicotine dependence, unspecified, uncomplicated; Z79.84 Long term (current) use of oral hypoglycemic drugs
CPT/HCPCS: 96361; 96372; 96374; 99284; 99285; J1200; J2765

== ENCOUNTER 2019-01-09 08:47 | Outpatient (CLI) | payer MEDICARE, MEDICAID | END 2019-01-09 08:48 | disposition critical access hospital (66) | LOC: EMS 08:47 | PROVIDERS: ATTEND Surgery | DX: R51 Headache (principal) | CPT/HCPCS: A0425; A0429 ==

== ENCOUNTER 2019-01-09 08:53 | Emergency (ER) | payer MEDICARE, MEDICAID ==
[2019-01-09] MEDS ORDERED: ONDANSETRON 4 MG/2 ML VIAL IM STA (09:04)
[2019-01-09] MEDS ORDERED: diphenhydrAMINE INJ 50 MG/ML VIAL IM STA (09:04)
[2019-01-09] MEDS ORDERED: KETOROLAC 60 MG/2 ML VIAL IM STA (09:04)
--- NOTE | 2019-01-09 09:13 | ED Physician Documentation ---
PD HPI HEADACHE - Stated complaint Stated Complaint: JOYA - Chief complaint Chief Complaint: Neuro - History obtained from History obtained from: Patient - History of Present Illness Timing - onset: How many weeks ago (3) Timing - onset during: Rest Timing - duration: Weeks (3) Timing - details: Gradual onset, Waxing and waning Pain level max: 8 Pain level now: 8 Location: Global Quality: Throbbing, Aching Associated symptoms: Nausea, Vomiting. No: Fever, Stiff neck, Weakness, Numbness, Syncope, Seizure, Eye pain, Vision changes Improved by: Rest, Dark room Worsened by: Light, Noise Contributing factors: No: Anticoagulated, Possible carbon monoxide, Hypertension, Recent illness, Trauma Similar symptoms before: Diagnosis (chronic headaches) Recently seen: Emergency Dept (2 weeks ago for same. sees her neurologist in 4 days.) Review of Systems Constitutional: denies: Fever, Chills Eyes: reports: Photophobia Ears: denies: Ear pain Nose: denies: Rhinorrhea / runny nose, Congestion Throat: denies: Sore throat Cardiac: denies: Chest pain / pressure Respiratory: denies: Cough GI: reports: Nausea, Vomiting. denies: Abdominal Pain, Diarrhea Skin: denies: Rash Musculoskeletal: denies: Neck pain, Back pain Neurologic: denies: Focal weakness, Numbness, Seizure, Confused, Head injury, LOC PD PAST MEDICAL HISTORY - Past Medical History Cardiovascular: Hypertension Respiratory: Asthma, COPD Neuro: Seizure disorder Endocrine/Autoimmune: Type 2 diabetes GI: GERD HEALTH TECH: Ovarian cysts : Incontinence HEENT: None Psych: Bipolar disorder Musculoskeletal: Osteoarthritis, Osteoporosis Derm: Other drug resistant infections - Past Surgical History Past Surgical History: Yes General: Cholecystectomy /HEALTH TECH: Tubal ligation, Other HEENT: Tonsil/Adenoidectomy, Other - Present Medications Home Medications: Ambulatory Orders Medication Instructions Recorded Confirmed Zonisamide [Zonegran] 200 mg PO BID 12/02/16 10/12/18 Metformin HCl 1,000 mg PO BIDWM 02/15/17 10/12/18 acetaZOLAMIDE [Acetazolamide ER] 1,000 mg PO BID 02/15/17 10/12/18 Atorvastatin Calcium 40 mg PO QPM 05/26/17 10/12/18 Albuterol Sulfate [Proventil Hfa 1 - 2 puffs IH Q4H PRN #1 11/26/17 10/12/18 Inhaler] hfa.aer.ad Meloxicam [Mobic] 15 mg PO DAILY PRN #20 tablet 08/19/18 10/12/18 Ciprofloxacin [Cipro] 250 mg PO Q12H #10 tablet 10/12/18 Methocarbamol 1 tab ORAL TID 10/12/18 10/12/18 Pantoprazole [Protonix] 1 tab ORAL DAILY 10/12/18 10/12/18 Promethazine [Phenergan] 25 mg PO Q6H PRN #10 tab 10/12/18 Oxycodone HCl/Acetaminophen 1 - 2 each PO Q6H PRN #14 tablet 11/13/18 [Percocet 5-325 mg Tablet] Doxycycline Hyclate 100 mg PO BID #14 capsule 12/23/18 Loratadine [Allergy Relief] 10 mg PO DAILY #10 tablet 12/25/18 - Allergies Allergies/Adverse Reactions: Allergies Allergy/AdvReac Type Severity Reaction Status Date / Time Latex, Natural Rubber Allergy Mild Rash Verified 01/03/19 12:13 acetaminophen [From Vicodin] Allergy Hives Verified 01/03/19 12:13 hydrocodone bitartrate * Allergy Hives Verified 01/03/19 12:13 [From Vicodin] Penicillins Allergy Rash Verified 01/03/19 12:13 tramadol Allergy Rash Verified 01/03/19 12:13 adhesive AdvReac Intermediate chemical Verified 01/03/19 12:13 logan haloperidol [From Haldol] AdvReac Unknown Hallucinati Verified 01/03/19 12:13 ons iodine AdvReac Unknown Rash Verified 01/03/19 12:13 latex AdvReac Unknown Respiratory Verified 01/03/19 12:13 lamotrigine [From Lamictal] AdvReac Rash Verified 01/03/19 12:13 varenicline tartrate * AdvReac Hallucinati Verified 01/03/19 12:13 [From Chantix] ons steriods AdvReac Intermediate Unknown Uncoded 01/03/19 12:13 - Social History Does the pt smoke?: Yes Smoking Status: Current every day smoker Does the pt drink ETOH?: Yes Does the pt have substance abuse?: Yes - Immunizations Immunizations are current?: No - POLST Patient has POLST: No POLST Status: Full Code PD ED PE NORMAL - Vitals Vital signs reviewed: Yes - General General: Alert and oriented X 3, No acute distress, Well developed/nourished - HEENT HEENT: PERRL, Moist mucous membranes, Pharynx benign - Neck Neck: Supple, no meningeal sign - Cardiac Cardiac: RRR, Strong equal pulses - Respiratory Respiratory: No respiratory distress, Clear bilaterally - Abdomen Abdomen: Normal bowel sounds, Soft, Non tender, Non distended - Derm Derm: Warm and dry - Extremities Extremities: No calf tenderness / cord - Neuro Neuro: Alert and oriented X 3, communication signals intelligence 2-12 intact, No motor deficit, No sensory deficit, Normal speech Eye Opening: Spontaneous Motor: Obeys Commands Verbal: Oriented GCS Score: 15 - Psych Psych: Normal mood, Normal affect Results - Vitals Vitals: Vital Signs - 24 hr 01/09/19 01/09/19 01/09/19 08:59 09:04 10:32 Temperature 36.7 C Heart Rate 70 71 70 Respiratory 16 16 16 Rate Blood Pressure 109/73 111/65 112/64 O2 Saturation 97 96 98 Oxygen O2 Source Room air PD MEDICAL DECISION MAKING - ED course Complexity details: reviewed old records, re-evaluated patient, considered differential, d/w patient ED course: Usual headache. Feels better after toradol, zofran, and benadryl. Will follow up with her neurologist this week. No evidence of subarachnoid hemorrhage. Patient counseled regarding signs and symptoms for which I believe and urgent re- evaluation would be necessary. Patient with good understanding of and agreement to plan and is comfortable going home at this time This document was made in part using voice recognition software. While efforts are made to proofread this document, sound alike and grammatical errors may occur. Departure - Departure Disposition: 01 Home, Self Care Clinical Impression: Headache Condition: Good Instructions: ED Cephalgia Unspecified Follow-Up: Cassia Main PA [Primary Care Provider] - Within 1 week Comments: Continue your current medications at home. Return if you worsen. Follow-up with your doctor for further care. Discharge Date/Time: 01/09/19 10:31
[2019-01-09 10:33] VITALS: BP 112/64
== END 2019-01-09 10:31 | disposition home or self-care (01) ==
LOC: ED 08:53
DX: R51 Headache (principal); R11.2 Nausea with vomiting, unspecified; I10 Essential (primary) hypertension; E11.9 Type 2 diabetes mellitus without complications; Z79.84 Long term (current) use of oral hypoglycemic drugs; F17.200 Nicotine dependence, unspecified, uncomplicated
CPT/HCPCS: 96372; 99283; 99284; J1200

== ENCOUNTER 2019-01-11 20:10 | Outpatient (CLI) | payer MEDICARE, MEDICAID | END 2019-01-11 20:11 | disposition critical access hospital (66) | LOC: EMS 20:10 | PROVIDERS: ATTEND Surgery | DX: R56.9 Unspecified convulsions (principal); R52 Pain, unspecified; R53.83 Other fatigue | CPT/HCPCS: A0425; A0429 ==

== ENCOUNTER 2019-01-11 20:15 | Emergency (ER) | payer MEDICARE, MEDICAID ==
[2019-01-11 21:02] LABS: BASOPHILS # (AUTO) 0.1 10^3/uL (0.0-0.1); BASOPHILS % (AUTO) 0.8 %; EOSINOPHILS # (AUTO) 0.2 10^3/uL (0.0-0.7); EOSINOPHILS % (AUTO) 2.4 %; HGB - HEMOGLOBIN 16.3 g/dL (12.0-16.0); LYMPHOCYTES # (AUTO) 2.7 10^3/uL (1.5-3.5); MEAN CORPUSCULAR HEMOGLOBIN 30.2 pg (27.0-31.0); MEAN CORPUSCULAR VOLUME 88.9 fL (81.0-99.0); MEAN PLATELET VOLUME 9.1 fL (7.9-10.8); MONOCYTES # (AUTO) 0.7 10^3/uL (0.0-1.0); MONOCYTES % (AUTO) 7.9 %; NEUTROPHILS # (AUTO) 5.1 10^3/uL (1.5-6.6); NEUTROPHILS % (AUTO) 57.8 %; PLT - PLATELET COUNT 239 10^3/uL (130-450); RED CELL DISTRIBUTION WIDTH 13.2 % (12.0-15.0); WHITE BLOOD COUNT 8.8 x10^3/uL (4.8-10.8)
[2019-01-11 21:13] LABS: CALCIUM 8.7 mg/dL (8.5-10.3); CREATININE 0.5 mg/dL (0.4-1.0)
[2019-01-11 21:33] LABS: BILIRUBIN,URINE NEGATIVE (NEGATIVE); GLUCOSE, URINE (UA) 100 mg/dL (NEGATIVE); KETONES,URINE (UA) NEGATIVE (NEGATIVE); LEUKOCYTE ESTERASE, URINE TRACE (NEGATIVE); NITRITE,URINE POSITIVE (NEGATIVE); OCCULT BLOOD,URINE LARGE (NEGATIVE); PH,URINE 5.5 PH (5.0-7.5); PROTEIN,URINE NEGATIVE (NEGATIVE); UROBILINOGEN,URINE 0.2 (NORMAL) E.U./dL (NORMAL)
[2019-01-11 21:35] LABS: CLARITY,URINE HAZY (CLEAR)
[2019-01-11 21:40] LABS: BACTERIA,URINE Many /HPF (None Seen); RBC,URINE 0-5 /HPF (0-5); SQUAMOUS EPITHELIAL CELL,UR FEW Squamous (<= Few)
[2019-01-11] MEDS ORDERED: POTASSIUM CHLOR 10 MEQ/100 ML 10 MEQ/100 ML BAG IV ONE (21:40)
[2019-01-11] MEDS ORDERED: POTASSIUM CHLORIDE 20 MEQ TABLET PO STA (21:40)
[2019-01-11] MEDS ORDERED: cefTRIAXone 1 GM VIAL IM STA (22:20)
[2019-01-11] MEDS ORDERED: cefTRIAXone 1 GM in SODIUM CHLORIDE 0.9% MINIBAG 100 ML IV STA (22:20)
[2019-01-11] MEDS ORDERED: LIDOCAINE 1% 2 ML VIAL MC ONE (22:20)
[2019-01-11] MEDS ORDERED: KETOROLAC 30 MG/ML VIAL IVP STA (22:31)
[2019-01-11] MEDS ORDERED: diphenhydrAMINE INJ 50 MG/ML VIAL IVP STA (22:47)
[2019-01-11] MEDS ORDERED: IOVERSOL 320 100 ML VIAL IVP ONE ×2 (22:52→23:54)
--- NOTE | 2019-01-11 23:12 | ED Physician Documentation ---
PD HPI SEIZURE - Stated complaint Stated Complaint: SZ - Chief complaint Chief Complaint: Neuro - History obtained from History obtained from: Patient, Family - History of Present Illness Timing - onset: How many hours ago (a few hours ago) Witnessed: Witnessed Number of seizures: Multiple, Lasted - seconds, Recovered between seizure Description of seizure activity: Other (per , petit mal seizure) Injury during seizure: None Associated symptoms: Chest pain (after seizure) History of seizures: Known seizure disorder Contributing factors: Other (no known contributing factors) Treatment END MATCHER: Other (none) Similar symptoms before: Diagnosis (seizures) Recently seen: Emergency Dept - Treatment prior to arrival Treatment prior to arrival: none - Additional information Additional information: Pt's reports she had 3 separate seizures 30 minutes prior to arrival. She has a hx of seizure and is on antiepileptics. She did have an LOC each time but no injury and no postictal period. In the ED she also reported chest pain and Left lower quadrant pain. Review of Systems Ten Systems: 10 systems reviewed and negative Constitutional: denies: Fever Ears: reports: Ear pain Nose: reports: Reviewed and negative Throat: reports: Reviewed and negative Cardiac: reports: Chest pain / pressure GI: reports: Abdominal Pain : reports: Frequency Skin: reports: Reviewed and negative Musculoskeletal: reports: Reviewed and negative Neurologic: reports: Seizure, LOC Immunocompromised: reports: Reviewed and negative PD PAST MEDICAL HISTORY - Past Medical History Cardiovascular: Hypertension Respiratory: Asthma, COPD Neuro: Seizure disorder Endocrine/Autoimmune: Type 2 diabetes GI: GERD 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: Ovarian cysts : Incontinence HEENT: None Psych: Bipolar disorder Musculoskeletal: Osteoarthritis, Osteoporosis Derm: Other drug resistant infections - Past Surgical History Past Surgical History: Yes General: Cholecystectomy /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: Tubal ligation, Other HEENT: Tonsil/Adenoidectomy, Other - Present Medications Home Medications: Ambulatory Orders Medication Instructions Recorded Confirmed Zonisamide [Zonegran] 200 mg PO BID 12/02/16 10/12/18 Metformin HCl 1,000 mg PO BIDWM 02/15/17 10/12/18 acetaZOLAMIDE [Acetazolamide ER] 1,000 mg PO BID 02/15/17 10/12/18 Atorvastatin Calcium 40 mg PO QPM 05/26/17 10/12/18 Albuterol Sulfate [Proventil Hfa 1 - 2 puffs IH Q4H PRN #1 11/26/17 10/12/18 Inhaler] hfa.aer.ad Meloxicam [Mobic] 15 mg PO DAILY PRN #20 tablet 08/19/18 10/12/18 Ciprofloxacin [Cipro] 250 mg PO Q12H #10 tablet 10/12/18 Methocarbamol 1 tab ORAL TID 10/12/18 10/12/18 Pantoprazole [Protonix] 1 tab ORAL DAILY 10/12/18 10/12/18 Promethazine [Phenergan] 25 mg PO Q6H PRN #10 tab 10/12/18 Oxycodone HCl/Acetaminophen 1 - 2 each PO Q6H PRN #14 tablet 11/13/18 [Percocet 5-325 mg Tablet] Doxycycline Hyclate 100 mg PO BID #14 capsule 12/23/18 Loratadine [Allergy Relief] 10 mg PO DAILY #10 tablet 12/25/18 Cephalexin [Keflex] 500 mg PO Q6H #28 capsule 01/12/19 - Allergies Allergies/Adverse Reactions: Allergies Allergy/AdvReac Type Severity Reaction Status Date / Time Latex, Natural Rubber Allergy Mild Rash Verified 01/03/19 12:13 acetaminophen [From Vicodin] Allergy Hives Verified 01/03/19 12:13 hydrocodone bitartrate * Allergy Hives Verified 01/03/19 12:13 [From Vicodin] Penicillins Allergy Rash Verified 01/03/19 12:13 tramadol Allergy Rash Verified 01/03/19 12:13 adhesive AdvReac Intermediate chemical Verified 01/03/19 12:13 logan haloperidol [From Haldol] AdvReac Unknown Hallucinati Verified 01/03/19 12:13 ons iodine AdvReac Unknown Rash Verified 01/03/19 12:13 latex AdvReac Unknown Respiratory Verified 01/03/19 12:13 lamotrigine [From Lamictal] AdvReac Rash Verified 01/03/19 12:13 varenicline tartrate * AdvReac Hallucinati Verified 01/03/19 12:13 [From Chantix] ons steriods AdvReac Intermediate Unknown Uncoded 01/03/19 12:13 - Social History Does the pt smoke?: Yes Smoking Status: Current every day smoker Does the pt drink ETOH?: Yes Does the pt have substance abuse?: Yes - Immunizations Immunizations are current?: No - POLST Patient has POLST: No POLST Status: Full Code PD ED PE NORMAL - Vitals Vital signs reviewed: Yes - General General: No acute distress - HEENT HEENT: Atraumatic, Pharynx benign - Neck Neck: Supple, no meningeal sign - Cardiac Cardiac: RRR, No murmur, No gallop, No rub - Respiratory Respiratory: No respiratory distress, Clear bilaterally - Abdomen Abdomen: Soft, Non tender, Non distended - Female Female : Deferred - Rectal Rectal: Deferred - Derm Derm: Normal color, Warm and dry, No rash - Extremities Extremities: No deformity - Neuro Neuro: No motor deficit, No sensory deficit Eye Opening: Spontaneous Motor: Obeys Commands Verbal: Oriented GCS Score: 15 Results - Vitals Vitals: Vital Signs - 24 hr 01/11/19 01/11/19 01/12/19 20:23 22:36 00:05 Temperature 36.5 C 36.7 C 36.3 C L Heart Rate 80 77 72 Respiratory 18 16 12 Rate Blood Pressure 129/81 H 116/89 H 123/77 O2 Saturation 99 98 97 Oxygen O2 Source Room air - EKG (time done) 20:25 Rate: Rate (enter#) Rhythm: NSR [place]: Normal Intervals: Normal NV, QRS normal QRS: Normal Ischemia: Normal ST segments, Other (no STEMI) Computer interpretation: Agree with computer - Labs Labs: Laboratory Tests 01/11/19 01/11/19 01/11/19 20:57 20:57 20:57 WBC 8.8 RBC 5.40 Hgb 16.3 H Hct 48.0 H MCV 88.9 MCH 30.2 MCHC 34.0 RDW 13.2 Plt Count 239 MPV 9.1 Neut # (Auto) 5.1 Lymph # (Auto) 2.7 [place] # (Auto) 0.7 Eos # (Auto) 0.2 Baso # (Auto) 0.1 Absolute Nucleated RBC 0.00 Nucleated RBC % 0.0 Sodium 135 Potassium 3.2 L Chloride 109 Carbon Dioxide 17 L Anion Gap 9.0 BUN 12 Creatinine 0.5 Estimated GFR (MDRD) 140 Glucose 174 H Calcium 8.7 HCG, Quant < 0.60 Urine Color Urine Clarity Urine pH Ur Specific [place] Urine Protein Urine Glucose (UA) Urine Ketones Urine Occult Blood Urine Nitrite Urine Bilirubin Urine Urobilinogen Ur Leukocyte Esterase Urine RBC Urine WBC Ur Squamous Epith Cells Urine Bacteria Ur Microscopic Review Urine Culture Comments 01/11/19 21:25 WBC RBC Hgb Hct MCV MCH MCHC RDW Plt Count MPV Neut # (Auto) Lymph # (Auto) [place] # (Auto) Eos # (Auto) Baso # (Auto) Absolute Nucleated RBC Nucleated RBC % Sodium Potassium Chloride Carbon Dioxide Anion Gap BUN Creatinine Estimated GFR (MDRD) Glucose Calcium HCG, Quant Urine Color YELLOW Urine Clarity HAZY Urine pH 5.5 Ur Specific [place] <=1.005 Urine Protein NEGATIVE Urine Glucose (UA) 100 H Urine Ketones NEGATIVE Urine Occult Blood LARGE H Urine Nitrite POSITIVE H Urine Bilirubin NEGATIVE Urine Urobilinogen 0.2 (NORMAL) Ur Leukocyte Esterase TRACE H Urine RBC 0-5 Urine WBC 4-5 Ur Squamous Epith Cells FEW Squamous Urine Bacteria Many H Ur Microscopic Review INDICATED Urine Culture Comments INDICATED UA suggestive of UTI Pt also with hypokalemia which is mild - Rads (name of study) CT max face for mastoiditis Radiology: Final report received, See rad report (negative CT ) PD MEDICAL DECISION MAKING - ED course Complexity details: reviewed results, re-evaluated patient, considered differential, d/w patient, d/w family ED course: ddx - seizure, psychogenic nonepileptic seizure, electrolyte abnormality, uti, substance abuse, mastoiditis, otitis media, otitis externa. 38 y/o F with hx and exam as documented. Pt had 3 reported seizures per prior to arrival and then an episode here that did not appear to be an epileptic seizure, pt had blinking eye movements and no postictal period suspect this was a psychogenic nonepileptic seizure. She also had hypokalemia which was mild and repleted here and a UTI which was treated with ceftriaxone and then outpt keflex. She reported L ear, facial pain on reassessment with pain over the mastoid thus obtained, inflammatory markers, CT which were negative. Pt is asymptomatic on reevaluation and stable for discharge with outpt f/u. Pt and given return precautions in case of worsening or new concerning symptoms. Departure - Departure Disposition: 01 Home, Self Care Clinical Impression: Hypokalemia UTI (urinary tract infection) Qualifiers: Urinary tract infection type: site unspecified Hematuria presence: without hematuria Qualified Code(s): N39.0 - Urinary tract infection, site not specified Convulsion, non-epileptic Qualifiers: Convulsion type: unspecified Qualified Code(s): R56.9 - Unspecified convulsions Condition: Stable Record reviewed to determine appropriate education?: Yes Instructions: Hypokalemia Dc, ED UTI Cystitis Female Follow-Up: Cassia Main PA [Primary Care Provider] - Within 1 week (to recheck your symptoms) Prescriptions: Cephalexin [Keflex] 500 mg PO Q6H #28 capsule Comments: Your evaluation today revealed a low potassium for which you were given oral potassium repletion. You also have a UTI and were given a dose of ceftriaxone as an antibiotic and should continue keflex at home. Your evaluation of your facial and ear pain were negative including CT scan imaging. You should follow up with your PCP regarding your symptoms.
[2019-01-11] MEDS: methylPREDNISolone SUCCINATE 125 MG/2 ML VIAL IVP STA (23:15)
[2019-01-12 00:06] VITALS: BP 123/77
[2019-01-12] MEDS: methylPREDNISolone SUCCINATE 125 MG/2 ML VIAL IVP STA (00:12)
--- NOTE | 2019-01-12 00:12 | CT Report ---
Reason: MASTOIDITIS Procedure Date: 01/11/2019 Accession Number: [id number] / [id number] Procedure: CT - MAXILLOFACIAL W CPT Code: FULL RESULT: EXAM: CT MAXILLOFACIAL WITH CONTRAST EXAM DATE: 01/11/2019 11:53 PM. CLINICAL HISTORY: Mastoiditis. COMPARISONS: FACIAL BONES W/O 11/22/2018 6:43 PM. TECHNIQUE: Thin-section axial images were acquired of the face after administration of intravenous contrast. Post-processing: Coronal and sagittal reformats. Other: None. IV contrast: 80 mL Optiray 320. In accordance with CT protocol optimization, one or more of the following dose reduction techniques were utilized for this exam: automated exposure control, adjustment of mA and/or KV based on patient size, or use of iterative reconstructive technique. FINDINGS: Soft Tissue: No abnormal inflammation or fluid collection. No soft tissue mass. The infratemporal fossa and parapharyngeal spaces are unremarkable. Orbits: Symmetric and stable. Bones: No fracture or bone lesion. Teeth are absent. Temporomandibular Joints: The temporomandibular joints are symmetric and normally located. Sinuses: Scattered trace/minimal mucosal thickening in paranasal sinuses. No significant mucosal thickening, opacification or air-fluid levels. Mastoids: Mastoid air cells and middle ears are clear. No mastoid effusion. Glands: Lacrimal glands appear mildly prominent. Parotid and submandibular glands are unremarkable. Other: None. IMPRESSION: Stable maxillofacial CT compared to 11/22/2018. No evidence of mastoiditis. RADIA
== END 2019-01-12 00:24 | disposition home or self-care (01) ==
LOC: ED 20:15
DX: G40.909 Epilepsy, unspecified, not intractable, without status epilepticus (principal); N39.0 Urinary tract infection, site not specified; E87.6 Hypokalemia; H92.02 Otalgia, left ear; R51 Headache; E11.9 Type 2 diabetes mellitus without complications; Z79.84 Long term (current) use of oral hypoglycemic drugs; I10 Essential (primary) hypertension; F17.200 Nicotine dependence, unspecified, uncomplicated
CPT/HCPCS: 36415; 70487; 80048; 81001; 84702; 85025; 87077; 87086; 87181; 93005; 96372; 96374; 99284; 99285; A9270; J1200; Q9967; 81003

== ENCOUNTER 2019-01-23 19:08 | Emergency (ER) | payer MEDICARE, MEDICAID ==
[2019-01-23] MEDS ORDERED: KETOROLAC 60 MG/2 ML VIAL IM STA (19:55)
[2019-01-23] MEDS ORDERED: CLINDAMYCIN 150 MG CAPSULE PO STA (19:55)
--- NOTE | 2019-01-23 20:12 | ED Physician Documentation ---
History of Present Illness - Stated complaint Stated Complaint: SZ/LT BREAST PX/OOZE/FEVER - Chief complaint Chief Complaint: General - History obtained from History obtained from: Patient, Family - History of Present Illness Timing: Today Pain level max: 8 Pain level now: 8 - Additonal information Additional information: 38-year-old female presents to the emergency department with Left breast pain. She states she had green discharge from the nipple today. Worse with palpation. Nothing makes it better. She also states that she is having several small seizures per day, they last less than 30 seconds most of the time. She states this is no change from her baseline and that her neurologist is aware. No fevers. No trauma. 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 : Incontinence HEENT: None Psych: Bipolar disorder Musculoskeletal: Osteoarthritis, Osteoporosis Derm: Other drug resistant infections - Past Surgical History Past Surgical History: Yes General: Cholecystectomy /CLEARANCE COORDINATOR: Tubal ligation, Other HEENT: Tonsil/Adenoidectomy, Other - Present Medications Home Medications: Ambulatory Orders Medication Instructions Recorded Confirmed Zonisamide [Zonegran] 200 mg PO BID 12/02/16 10/12/18 Metformin HCl 1,000 mg PO BIDWM 02/15/17 10/12/18 acetaZOLAMIDE [Acetazolamide ER] 1,000 mg PO BID 02/15/17 10/12/18 Atorvastatin Calcium 40 mg PO QPM 05/26/17 10/12/18 Albuterol Sulfate [Proventil Hfa 1 - 2 puffs IH Q4H PRN #1 11/26/17 10/12/18 Inhaler] hfa.aer.ad Meloxicam [Mobic] 15 mg PO DAILY PRN #20 tablet 08/19/18 10/12/18 Ciprofloxacin [Cipro] 250 mg PO Q12H #10 tablet 10/12/18 Methocarbamol 1 tab ORAL TID 10/12/18 10/12/18 Pantoprazole [Protonix] 1 tab ORAL DAILY 10/12/18 10/12/18 Promethazine [Phenergan] 25 mg PO Q6H PRN #10 tab 10/12/18 Oxycodone HCl/Acetaminophen 1 - 2 each PO Q6H PRN #14 tablet 11/13/18 [Percocet 5-325 mg Tablet] Doxycycline Hyclate 100 mg PO BID #14 capsule 12/23/18 Loratadine [Allergy Relief] 10 mg PO DAILY #10 tablet 12/25/18 Cephalexin [Keflex] 500 mg PO Q6H #28 capsule 01/12/19 Clindamycin HCl [Clindamycin 300MG 300 mg PO Q6H #28 capsule 01/23/19 CAP] - Allergies Allergies/Adverse Reactions: Allergies Allergy/AdvReac Type Severity Reaction Status Date / Time Latex, Natural Rubber Allergy Mild Rash Verified 01/23/19 19:29 acetaminophen [From Vicodin] Allergy Hives Verified 01/23/19 19:29 hydrocodone bitartrate * Allergy Hives Verified 01/23/19 19:29 [From Vicodin] Penicillins Allergy Rash Verified 01/23/19 19:29 tramadol Allergy Rash Verified 01/23/19 19:29 adhesive AdvReac Intermediate chemical Verified 01/23/19 19:29 logan haloperidol [From Haldol] AdvReac Unknown Hallucinati Verified 01/23/19 19:29 ons iodine AdvReac Unknown Rash Verified 01/23/19 19:29 latex AdvReac Unknown Respiratory Verified 01/23/19 19:29 lamotrigine [From Lamictal] AdvReac Rash Verified 01/23/19 19:29 varenicline tartrate * AdvReac Hallucinati Verified 01/23/19 19:29 [From Chantix] ons steriods AdvReac Intermediate Unknown Uncoded 01/23/19 19:29 - Social History Does the pt smoke?: Yes Smoking Status: Current every day smoker Does the pt drink ETOH?: Yes Does the pt have substance abuse?: Yes - Immunizations Immunizations are current?: No - POLST Patient has POLST: No POLST Status: Full Code PD ED PE NORMAL - Vitals Vital signs reviewed: Yes - General General: Alert and oriented X 3, No acute distress, Well developed/nourished - HEENT HEENT: Moist mucous membranes - Neck Neck: Supple, no meningeal sign - Cardiac Cardiac: RRR, Strong equal pulses - Respiratory Respiratory: No respiratory distress, Clear bilaterally - Abdomen Abdomen: Soft, Non tender, Non distended - Derm Derm: Warm and dry - Neuro Neuro: Alert and oriented X 3 - Psych Psych: Normal mood, Normal affect - Free text exam Free text exam: Tender to palpation over the left breast, diffusely. No nodules or swelling felt. No drainage from the nipple. No skin changes. Results - Vitals Vitals: Vital Signs - 24 hr 01/23/19 01/23/19 19:25 20:24 Temperature 37.3 C 36.7 C Heart Rate 70 68 Respiratory 18 17 Rate Blood Pressure 113/65 123/69 O2 Saturation 99 98 Oxygen O2 Source Room air - Labs Labs: Laboratory Tests 01/23/19 20:01 POC Whole Bld Glucose 152 H PD MEDICAL DECISION MAKING - ED course Complexity details: considered differential, d/w patient ED course: 38-year-old female with left breast pain. Will place on antibiotics. Has had abscesses in the past but there is no palpable abscess tonight. We will follow- up closely with her doctor. Patient is well-appearing, nontoxic. Afebrile. Pain well controlled with Toradol. Patient counseled regarding signs and symptoms for which I believe and urgent re-evaluation would be necessary. Patient with good understanding of and agreement to plan and is comfortable going home at this time This document was made in part using voice recognition software. While efforts are made to proofread this document, sound alike and grammatical errors may occur. Her seizure activity has not changed and she is following up with her neurologist for this Departure - Departure Disposition: 01 Home, Self Care Clinical Impression: Mastitis Condition: Good Instructions: ED Breast Infec Follow-Up: Cassia Main PA [Primary Care Provider] - Within 1 week Prescriptions: Clindamycin HCl [Clindamycin 300MG CAP] 300 mg PO Q6H #28 capsule Comments: Take all antibiotics until gone. Return if you worsen. Follow-up with your doctor for further care. You may have an early breast abscess, so if you are not improving as expected, you should return for further evaluation. You should discuss your seizure medication with your neurologist. Discharge Date/Time: 01/23/19 20:25
[2019-01-23 20:25] VITALS: BP 123/69
== END 2019-01-23 20:25 | disposition home or self-care (01) ==
LOC: ED 19:08
DX: N61.0 Mastitis without abscess (principal); I10 Essential (primary) hypertension; E11.9 Type 2 diabetes mellitus without complications; F17.200 Nicotine dependence, unspecified, uncomplicated
CPT/HCPCS: 96372; 99284; A9270

== ENCOUNTER 2019-01-25 16:28 | Outpatient (CLI) | payer MEDICARE, MEDICAID | END 2019-01-25 23:59 | disposition home or self-care (01) | LOC: LAB.R 16:28 | PROVIDERS: ATTEND Physician Assistant | DX: N39.0 Urinary tract infection, site not specified (principal) | CPT/HCPCS: 87086 ==

== ENCOUNTER 2019-01-27 16:36 | Outpatient (CLI) | payer MEDICARE, MEDICAID ==
[2019-01-27 17:10] LABS: BASOPHILS # (AUTO) 0.1 10^3/uL (0.0-0.1); EOSINOPHILS # (AUTO) 0.2 10^3/uL (0.0-0.7); EOSINOPHILS % (AUTO) 2.2 %; HGB - HEMOGLOBIN 14.2 g/dL (12.0-16.0); LYMPHOCYTES # (AUTO) 2.7 10^3/uL (1.5-3.5); LYMPHOCYTES % (AUTO) 35.2 %; MEAN CORPUSCULAR HEMOGLOBIN 30.6 pg (27.0-31.0); MEAN CORPUSCULAR HGB CONC 34.2 g/dL (32.0-36.0); MEAN CORPUSCULAR VOLUME 89.4 fL (81.0-99.0); MEAN PLATELET VOLUME 9.3 fL (7.9-10.8); MONOCYTES # (AUTO) 0.6 10^3/uL (0.0-1.0); NEUTROPHILS # (AUTO) 4.1 10^3/uL (1.5-6.6); NEUTROPHILS % (AUTO) 53.3 %; PLT - PLATELET COUNT 245 10^3/uL (130-450); RED BLOOD COUNT 4.64 10^6/uL (4.20-5.40); RED CELL DISTRIBUTION WIDTH 13.2 % (12.0-15.0); WHITE BLOOD COUNT 7.8 x10^3/uL (4.8-10.8)
[2019-01-27 17:28] LABS: ALBUMIN 3.8 g/dL (3.2-5.5); ALBUMIN/GLOBULIN RATIO 1.3 (1.0-2.2); ALKALINE PHOSPHATASE 56 IU/L (42-121); ALT ALANINE AMINOTRANSFERASE 21 IU/L (10-60); AST ASPARTATE AMINOTRANSFERASE < 10 IU/L (10-42); BILIRUBIN,TOTAL 0.4 mg/dL (0.2-1.0); BUN - BLOOD UREA NITROGEN 9 mg/dL (6-20); CALCIUM 8.7 mg/dL (8.5-10.3); CARBON DIOXIDE - CO2 21 mmol/L (21-32); CHLORIDE 110 mmol/L (101-111); CREATININE 0.5 mg/dL (0.4-1.0); GFR - MDRD 140 (>89); GLUCOSE 163 mg/dL (70-100); SODIUM 139 mmol/L (135-145); TOTAL PROTEIN 6.8 g/dL (6.7-8.2)
[2019-01-27 19:10] LABS: HB2 TOTAL 13.9 g/dL; HEMOGLOBIN A1C 0.87 g/dL; HEMOGLOBIN A1C % 7.9 % (4.6-6.2)
== END 2019-01-27 16:37 | disposition home or self-care (01) ==
LOC: LAB 16:36
PROVIDERS: ATTEND Physician Assistant
DX: E11.9 Type 2 diabetes mellitus without complications (principal); N39.0 Urinary tract infection, site not specified; R10.9 Unspecified abdominal pain; R11.2 Nausea with vomiting, unspecified; F41.9 Anxiety disorder, unspecified
CPT/HCPCS: 36415; 80053; 83036; 84443; 85025; 87086; 87181

== ENCOUNTER 2019-02-05 14:18 | Outpatient (CLI) | payer MEDICARE, MEDICAID ==
--- NOTE | 2019-02-06 01:44 | XRAY Report ---
Reason: URI Procedure Date: 02/05/2019 Accession Number: [id number] / [id number] Procedure: XR - Chest 2 View X-Ray CPT Code: 53069 FULL RESULT: EXAM: CHEST RADIOGRAPHY EXAM DATE: 02/05/2019 02:27 PM. CLINICAL HISTORY: URI. COMPARISON: CHEST 1 VIEW 12/23/2018 8:48 PM. TECHNIQUE: 2 views. FINDINGS: Lungs/Pleura: No dense consolidation. No large effusion or pneumothorax. No pulmonary edema. Mediastinum: Heart and mediastinal contours are unremarkable. Other: None. IMPRESSION: No acute radiographic pulmonary abnormalities. RADIA
== END 2019-02-05 14:19 | disposition home or self-care (01) ==
LOC: DI 14:18
PROVIDERS: ATTEND Physician Assistant Medical
DX: J06.9 Acute upper respiratory infection, unspecified (principal)
CPT/HCPCS: 71046

== ENCOUNTER 2019-02-09 08:00 | Outpatient (CLI) | payer MEDICARE, MEDICAID ==
[2019-02-09 18:18] LABS: BASOPHILS # (AUTO) 0.1 10^3/uL (0.0-0.1); BASOPHILS % (AUTO) 0.7 %; EOSINOPHILS # (AUTO) 0.2 10^3/uL (0.0-0.7); HGB - HEMOGLOBIN 14.1 g/dL (12.0-16.0); LYMPHOCYTES # (AUTO) 2.6 10^3/uL (1.5-3.5); LYMPHOCYTES % (AUTO) 32.1 %; MEAN CORPUSCULAR HEMOGLOBIN 30.3 pg (27.0-31.0); MEAN CORPUSCULAR HGB CONC 32.9 g/dL (32.0-36.0); MEAN CORPUSCULAR VOLUME 92.1 fL (81.0-99.0); MEAN PLATELET VOLUME 9.8 fL (7.9-10.8); MONOCYTES # (AUTO) 0.5 10^3/uL (0.0-1.0); MONOCYTES % (AUTO) 6.5 %; NEUTROPHILS # (AUTO) 4.8 10^3/uL (1.5-6.6); NEUTROPHILS % (AUTO) 58.3 %; PLT - PLATELET COUNT 259 10^3/uL (130-450); RED BLOOD COUNT 4.66 10^6/uL (4.20-5.40); RED CELL DISTRIBUTION WIDTH 13.6 % (12.0-15.0); WHITE BLOOD COUNT 8.2 x10^3/uL (4.8-10.8)
[2019-02-09 18:38] LABS: ALBUMIN 3.9 g/dL (3.2-5.5); ALBUMIN/GLOBULIN RATIO 1.3 (1.0-2.2); BILIRUBIN,TOTAL 0.5 mg/dL (0.2-1.0); CREATININE 0.5 mg/dL (0.4-1.0); TOTAL PROTEIN 6.8 g/dL (6.7-8.2)
== END 2019-02-09 23:59 | disposition home or self-care (01) ==
LOC: LAB.WCP 08:00
PROVIDERS: ATTEND Physician Assistant
DX: J45.909 Unspecified asthma, uncomplicated (principal); R05 Cough
CPT/HCPCS: 36415; 71046; 80053; 85025

== ENCOUNTER → 2019-02-09 | Outpatient (CLI) | payer MEDICARE, MEDICAID ==
--- NOTE | 2019-02-09 16:03 | XRAY Report ---
Reason: RAD, COUGH Procedure Date: 02/09/2019 Accession Number: [id number] / [id number] Procedure: WCP - Chest 2 View X-Ray CPT Code: 20281 FULL RESULT: EXAM: CHEST RADIOGRAPHY EXAM DATE: 02/09/2019 02:46 PM. CLINICAL HISTORY: COUGH. COMPARISON: CHEST 2 VIEW 02/05/2019 2:22 PM CHEST 1 VIEW 12/23/2018 8:48 PM. TECHNIQUE: 2 views. FINDINGS: Lungs/Pleura: Faint increased density right base, question airspace disease. No other focal opacities evident. No pleural effusion. No pneumothorax. Normal volumes. Mediastinum: Heart and mediastinal contours are unremarkable. Other: Unremarkable bony structures. IMPRESSION: Possible right basilar airspace process. Suggest follow-up chest x-ray 4-6 weeks to assess for clearing/interval change. RADIA
== END ==
LOC: EDSTATUS 13:39 → DI.WCP 14:15
PROVIDERS: ATTEND Physician Assistant Medical
DX: J45.909 Unspecified asthma, uncomplicated (principal); R05 Cough
CPT/HCPCS: 71046

== ENCOUNTER 2019-02-10 14:29 | Emergency (ER) | payer MEDICARE, MEDICAID ==
[2019-02-10] MEDS ORDERED: KETOROLAC 60 MG/2 ML VIAL IM STA (14:48)
--- NOTE | 2019-02-10 14:50 | ED Physician Documentation ---
PD HPI ABD PAIN - Stated complaint Stated Complaint: ABD PX - Chief complaint Chief Complaint: Abd Pain - History obtained from History obtained from: Patient - History of Present Illness Timing - onset: Today (38-year-old woman with history of diabetes, ovarian cyst developed central low pelvic pain starting this morning. Fairly sudden onset and nonradiating. Recent UTI. No nausea or vomiting. Of note, somewhat atypical from my previous encounters with this patient, she specifically does not want any narcotics, it sounds like she is had extensive conversations with her primary care physician about this.) Review of Systems Ten Systems: 10 systems reviewed and negative Constitutional: denies: Fever, Chills Cardiac: denies: Chest pain / pressure, Palpitations Respiratory: denies: Dyspnea, Cough PD PAST MEDICAL HISTORY - Past Medical History Cardiovascular: Hypertension Respiratory: Asthma, COPD Neuro: Seizure disorder Endocrine/Autoimmune: Type 2 diabetes GI: GERD FUNCTIONAL CONSULTANT: Ovarian cysts : Incontinence HEENT: None Psych: Bipolar disorder Musculoskeletal: Osteoarthritis, Osteoporosis Derm: Other drug resistant infections - Past Surgical History Past Surgical History: Yes General: Cholecystectomy /FUNCTIONAL CONSULTANT: Tubal ligation, Other HEENT: Tonsil/Adenoidectomy, Other - Present Medications Home Medications: Ambulatory Orders Medication Instructions Recorded Confirmed Zonisamide [Zonegran] 200 mg PO BID 12/02/16 10/12/18 Metformin HCl 1,000 mg PO BIDWM 02/15/17 10/12/18 acetaZOLAMIDE [Acetazolamide ER] 1,000 mg PO BID 02/15/17 10/12/18 Atorvastatin Calcium 40 mg PO QPM 05/26/17 10/12/18 Albuterol Sulfate [Proventil Hfa 1 - 2 puffs IH Q4H PRN #1 11/26/17 10/12/18 Inhaler] hfa.[email or web address] Meloxicam [Mobic] 15 mg PO DAILY PRN #20 tablet 08/19/18 10/12/18 Ciprofloxacin [Cipro] 250 mg PO Q12H #10 tablet 10/12/18 Methocarbamol 1 tab ORAL TID 10/12/18 10/12/18 Pantoprazole [Protonix] 1 tab ORAL DAILY 10/12/18 10/12/18 Promethazine [Phenergan] 25 mg PO Q6H PRN #10 tab 10/12/18 Oxycodone HCl/Acetaminophen 1 - 2 each PO Q6H PRN #14 tablet 11/13/18 [Percocet 5-325 mg Tablet] Doxycycline Hyclate 100 mg PO BID #14 capsule 12/23/18 Loratadine [Allergy Relief] 10 mg PO DAILY #10 tablet 12/25/18 Cephalexin [Keflex] 500 mg PO Q6H #28 capsule 01/12/19 Clindamycin HCl [Clindamycin 300MG 300 mg PO Q6H #28 capsule 01/23/19 CAP] - Allergies Allergies/Adverse Reactions: Allergies Allergy/AdvReac Type Severity Reaction Status Date / Time Latex, Natural Rubber Allergy Mild Rash Verified 01/23/19 19:29 acetaminophen [From Vicodin] Allergy Hives Verified 01/23/19 19:29 hydrocodone bitartrate * Allergy Hives Verified 01/23/19 19:29 [From Vicodin] Penicillins Allergy Rash Verified 01/23/19 19:29 tramadol Allergy Rash Verified 01/23/19 19:29 adhesive AdvReac Intermediate chemical Verified 01/23/19 19:29 logan haloperidol [From Haldol] AdvReac Unknown Hallucinati Verified 01/23/19 19:29 ons iodine AdvReac Unknown Rash Verified 01/23/19 19:29 latex AdvReac Unknown Respiratory Verified 01/23/19 19:29 lamotrigine [From Lamictal] AdvReac Rash Verified 01/23/19 19:29 varenicline tartrate * AdvReac Hallucinati Verified 01/23/19 19:29 [From Chantix] ons steriods AdvReac Intermediate Unknown Uncoded 01/23/19 19:29 - Social History Does the pt smoke?: Yes Smoking Status: Current every day smoker Does the pt drink ETOH?: Yes Does the pt have substance abuse?: Yes - Immunizations Immunizations are current?: No - POLST Patient has POLST: No POLST Status: Full Code PD ED PE NORMAL - Vitals Vital signs reviewed: Yes - General General: Alert and oriented X 3, Other (Appears uncomfortable) - Cardiac Cardiac: RRR, No murmur - Abdomen Abdomen: Normal bowel sounds, Soft, Non tender - Derm Derm: No rash - Neuro Neuro: Alert and oriented X 3, Normal speech - Psych Psych: Normal mood, Normal affect Results - Vitals Vitals: Vital Signs - 24 hr 02/10/19 14:35 Temperature 36.5 C Heart Rate 88 Respiratory 15 Rate Blood Pressure 119/78 O2 Saturation 96 Oxygen O2 Source Room air - Labs Labs: Laboratory Tests 02/10/19 15:10 Urine Color YELLOW Urine Clarity CLEAR Urine pH 7.0 Ur Specific [place] 1.010 Urine Protein NEGATIVE Urine Glucose (UA) NEGATIVE Urine Ketones NEGATIVE Urine Occult Blood NEGATIVE Urine Nitrite NEGATIVE Urine Bilirubin NEGATIVE Urine Urobilinogen 0.2 (NORMAL) Ur Leukocyte Esterase NEGATIVE Ur Microscopic Review NOT INDICATED Urine Culture Comments NOT INDICATED Urine HCG, Qual NEGATIVE - Rads (name of study) Pelvic sono Radiology: EMP read contemporaneously (Normal endometrium. 2.6 cm left ovarian cyst which was present on prior ultrasounds.) PD MEDICAL DECISION MAKING - ED course ED course: 38-year-old woman presents with acute pelvic pain. No evidence of torsion. Nontender. Labs unremarkable. Note made that she had trouble with this ovarian cyst before, but was vacillating on surgery. She also wondered if constipation may be playing a role and she was given magnesium citrate. Departure - Departure Disposition: 01 Home, Self Care Clinical Impression: Pelvic pain Ovarian cyst Qualifiers: Laterality: left Qualified Code(s): N83.202 - Unspecified ovarian cyst, left side Condition: Good Record reviewed to determine appropriate education?: Yes Instructions: ED Pelvic Pain [facility] Follow-Up: [facility] [Provider Group] - Within 1 week Comments: Call your doctor to arrange a follow-up appointment, make the next available appointment. In the interim, return anytime if worse or if new symptoms develop.
[2019-02-10 15:16] LABS: BILIRUBIN,URINE NEGATIVE (NEGATIVE); GLUCOSE, URINE (UA) NEGATIVE (NEGATIVE); KETONES,URINE (UA) NEGATIVE (NEGATIVE); LEUKOCYTE ESTERASE, URINE NEGATIVE (NEGATIVE); NITRITE,URINE NEGATIVE (NEGATIVE); OCCULT BLOOD,URINE NEGATIVE (NEGATIVE); PROTEIN,URINE NEGATIVE (NEGATIVE); UROBILINOGEN,URINE 0.2 (NORMAL) E.U./dL (NORMAL)
[2019-02-10 15:18] LABS: CLARITY,URINE CLEAR (CLEAR); HCG UR QUAL NEGATIVE
--- NOTE | 2019-02-10 16:11 | Ultrasound Report ---
Reason: pelvic pain Procedure Date: 02/10/2019 Accession Number: [id number] / [id number] Procedure: US - Pelvic w/Transvag+Doppler Comp CPT Code: FULL RESULT: EXAM: PELVIC ULTRASOUND EXAM DATE: 02/10/2019 03:18 PM. CLINICAL HISTORY: Pelvic pain. COMPARISON: PEL NON OB W/TV DOP 08/18/2018 9:55 PM PELVIC W/TRANSVAGINAL 10/22/2018 5:15 PM. TECHNIQUE: Realtime transabdominal pelvic scan performed to identify the uterus and adnexa and as an overview of other pelvic structures, followed by transvaginal scan to provide greater detail of the uterus and adnexa, with static image documentation. FINDINGS: Uterus: 6.7 x 5.2 x 3.4 cm, volume 62.1 cc. Anteverted position. Normal overall size and echotexture. Masses: 2 cystic structures are noted in the fundus of the uterus measuring 1.3 x 1.2 cm on the left and 0.9 x 0.8 cm on the right. Endometrium: 9 mm. Normal. Cervix: Unremarkable. Right Ovary: 4.1 x 2.1 x 1.8 cm, volume 8.1 cc. Normal echotexture and blood flow. Left Ovary: 4.9 x 4.2 x 3.7 cm, volume 39.6 cc. Normal echotexture and blood flow. There is a hypoechoic nonvascular rounded structure in the left ovary measuring 2.6 x 2.2 x 2.1 cm. Free Fluid: None. Other: None. IMPRESSION: 1. The endometrium is normal in thickness measuring 9 mm. 2. There is a nonvascular hypoechoic structure in the left ovary measuring up to 2.6 cm which is nonspecific but may represent a hemorrhagic cyst or endometrioma. RADIA
[2019-02-10] MEDS ORDERED: MAGNESIUM CITRATE 296 ML BOTTLE PO STA (16:27)
[2019-02-10 16:36] VITALS: BP 114/75
== END 2019-02-10 16:38 | disposition home or self-care (01) ==
LOC: ED 14:29
DX: R10.2 Pelvic and perineal pain (principal); N83.202 Unspecified ovarian cyst, left side; I10 Essential (primary) hypertension; E11.9 Type 2 diabetes mellitus without complications; Z79.84 Long term (current) use of oral hypoglycemic drugs; F17.200 Nicotine dependence, unspecified, uncomplicated
CPT/HCPCS: 76830; 76856; 81003; 81025; 93975; 96372; 99282; 99284; A9270; 80053; 81001; 83690; 85025; 87086

== ENCOUNTER 2019-02-16 16:13 | Outpatient (CLI) | payer MEDICARE, MEDICAID | END 2019-02-16 16:14 | disposition critical access hospital (66) | LOC: EMS 16:13 | PROVIDERS: ATTEND Surgery | DX: M54.9 Dorsalgia, unspecified (principal); R51 Headache; R11.2 Nausea with vomiting, unspecified | CPT/HCPCS: A0425; A0429 ==

== ENCOUNTER 2019-03-01 08:00 | Outpatient (CLI) | payer MEDICAID, MEDICARE ==
[2019-03-01 19:16] LABS: BILIRUBIN,URINE NEGATIVE (NEGATIVE); GLUCOSE, URINE (UA) NEGATIVE (NEGATIVE); KETONES,URINE (UA) NEGATIVE (NEGATIVE); LEUKOCYTE ESTERASE, URINE NEGATIVE (NEGATIVE); NITRITE,URINE NEGATIVE (NEGATIVE); OCCULT BLOOD,URINE NEGATIVE (NEGATIVE); PH,URINE 7.5 PH (5.0-7.5); PROTEIN,URINE NEGATIVE (NEGATIVE); UROBILINOGEN,URINE 0.2 (NORMAL) E.U./dL (NORMAL)
[2019-03-01 19:19] LABS: CLARITY,URINE CLEAR (CLEAR)
== END 2019-03-01 23:59 | disposition home or self-care (01) ==
LOC: LAB.R 08:00
PROVIDERS: ATTEND Family Medicine
DX: R30.0 Dysuria (principal)
CPT/HCPCS: 81001; 81003; 87086

== ENCOUNTER 2019-03-01 08:00 | Outpatient (CLI) | payer MEDICARE, MEDICAID ==
--- NOTE | 2019-03-03 04:42 | XRAY Report ---
Reason: LEFT KNEE PAIN Procedure Date: 03/01/2019 Accession Number: [id number] / [id number] Procedure: WCP - Knee 2 View LT CPT Code: FULL RESULT: EXAM: LEFT KNEE RADIOGRAPHY EXAM DATE: 03/01/2019 02:29 PM. CLINICAL HISTORY: Left knee pain. COMPARISON: KNEE 4 VIEW LT 05/28/2017 11:00 AM KNEE 3 VIEW LT 05/23/2017 12:18 PM. TECHNIQUE: 2 views. FINDINGS: Bones: No acute displaced fractures or suspicious bony lesion. Joints: No dislocation. Moderate compartmental degenerative joint disease. Soft Tissues: No significant soft tissue swelling. IMPRESSION: Stable appearance of the knee. No acute osseous abnormality demonstrated. RADIA
== END 2019-03-01 23:59 ==
LOC: DI.WCP 08:00 → EDSTATUS 12:31 → DI.WCP 23:59
PROVIDERS: ATTEND Physician Assistant
DX: M25.562 Pain in left knee (principal); R30.0 Dysuria
CPT/HCPCS: 81003

== ENCOUNTER 2019-03-08 16:25 | Emergency (ER) | payer MEDICARE, MEDICAID ==
[2019-03-08 16:37] VITALS: BP 109/63
[2019-03-08] MEDS ORDERED: oxyCODONE 5 MG TABLET PO STA ×2 (17:52→19:13)
--- NOTE | 2019-03-08 17:54 | ED Physician Documentation ---
History of Present Illness - Stated complaint Stated Complaint: SOA;LT SHOULDER PX - Chief complaint Chief Complaint: Heent - History obtained from History obtained from: Patient - History of Present Illness Timing: Other (She had a seizure or pseudoseizure 3 days ago and has left scapular pain ever since that has not been responsive to Tylenol. 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: Ovarian cysts : Incontinence HEENT: None Psych: Bipolar disorder Musculoskeletal: Osteoarthritis, Osteoporosis Derm: Other drug resistant infections - Past Surgical History Past Surgical History: Yes General: Cholecystectomy /ELECTRICAL TRYOUT PERSON: Tubal ligation, Other HEENT: Tonsil/Adenoidectomy, Other - Present Medications Home Medications: Ambulatory Orders Medication Instructions Recorded Confirmed Zonisamide [Zonegran] 200 mg PO BID 12/02/16 10/12/18 Metformin HCl 1,000 mg PO BIDWM 02/15/17 10/12/18 acetaZOLAMIDE [Acetazolamide ER] 1,000 mg PO BID 02/15/17 10/12/18 Atorvastatin Calcium 40 mg PO QPM 05/26/17 10/12/18 Albuterol Sulfate [Proventil Hfa 1 - 2 puffs IH Q4H PRN #1 11/26/17 10/12/18 Inhaler] hfa.aer.ad Meloxicam [Mobic] 15 mg PO DAILY PRN #20 tablet 08/19/18 10/12/18 Ciprofloxacin [Cipro] 250 mg PO Q12H #10 tablet 10/12/18 Methocarbamol 1 tab ORAL TID 10/12/18 10/12/18 Pantoprazole [Protonix] 1 tab ORAL DAILY 10/12/18 10/12/18 Promethazine [Phenergan] 25 mg PO Q6H PRN #10 tab 10/12/18 Oxycodone HCl/Acetaminophen 1 - 2 each PO Q6H PRN #14 tablet 11/13/18 [Percocet 5-325 mg Tablet] Doxycycline Hyclate 100 mg PO BID #14 capsule 12/23/18 Loratadine [Allergy Relief] 10 mg PO DAILY #10 tablet 12/25/18 Cephalexin [Keflex] 500 mg PO Q6H #28 capsule 01/12/19 Clindamycin HCl [Clindamycin 300MG 300 mg PO Q6H #28 capsule 01/23/19 CAP] Acetaminophen/Cod 300/30 [Tylenol 1 each PO Q4-6H PRN #10 tablet 02/16/19 #3] - Allergies Allergies/Adverse Reactions: Allergies Allergy/AdvReac Type Severity Reaction Status Date / Time Latex, Natural Rubber Allergy Mild Rash Verified 03/08/19 16:33 acetaminophen [From Vicodin] Allergy Hives Verified 03/08/19 16:33 ciprofloxacin [From Cipro] Allergy Unknown Verified 03/08/19 16:33 hydrocodone bitartrate * Allergy Hives Verified 03/08/19 16:33 [From Vicodin] Penicillins Allergy Rash Verified 03/08/19 16:33 tramadol Allergy Rash Verified 03/08/19 16:33 adhesive AdvReac Intermediate chemical Verified 03/08/19 16:33 logan haloperidol [From Haldol] AdvReac Unknown Hallucinati Verified 03/08/19 16:33 ons iodine AdvReac Unknown Rash Verified 03/08/19 16:33 latex AdvReac Unknown Respiratory Verified 03/08/19 16:33 lamotrigine [From Lamictal] AdvReac Rash Verified 03/08/19 16:33 varenicline tartrate * AdvReac Hallucinati Verified 03/08/19 16:33 [From Chantix] ons bee Allergy Unknown Uncoded 03/08/19 16:33 steriods AdvReac Intermediate Unknown Uncoded 03/08/19 16:33 - Social History Does the pt smoke?: Yes Smoking Status: Current every day smoker Does the pt drink ETOH?: Yes Does the pt have substance abuse?: Yes - Immunizations Immunizations are current?: No - POLST Patient has POLST: No POLST Status: Full Code PD ED PE NORMAL - Vitals Vital signs reviewed: Yes - General General: Alert and oriented X 3, Other (When I initially entered the room she is happy and talking to the nurse about cooking recipes. As soon as I start talking to her she is crying with overt pain behavior.) - Neck Neck: Supple, no meningeal sign, No bony TTP - Extremities Extremities: Other (She is kind of diffuse tenderness over the left scapula and ribs posteriorly and laterally. She cannot range the Left shoulder at all, but there is no deformity or tenderness of the shoulder itself.) - Neuro Neuro: Alert and oriented X 3, Normal speech Results - Vitals Vitals: Vital Signs - 24 hr 03/08/19 16:33 Temperature 36.9 C Heart Rate 68 Respiratory 16 Rate Blood Pressure 109/63 O2 Saturation 96 Oxygen O2 Source Room air - Rads (name of study) X-rays of the left ribs and chest and left scapula Radiology: EMP read contemporaneously (Negative) Departure - Departure Disposition: Home, Self Care Clinical Impression: Sprain of left shoulder Qualifiers: Encounter type: initial encounter Shoulder sprain type: unspecified sprain Qualified Code(s): S43.402A - Unspecified sprain of left shoulder joint, initial encounter Contusion of left chest wall Qualifiers: Encounter type: initial encounter Qualified Code(s): S20.212A - Contusion of left front wall of thorax, initial encounter Condition: Good Record reviewed to determine appropriate education?: Yes Instructions: ED Contusion Chest Wall Comments: Call your doctor to arrange a follow-up appointment, make the next available appointment. In the interim, return anytime if worse or if new symptoms develop. The policy of this emergency department is to not give more than 3 prescriptions for narcotics or other controlled substances in any 1 year. You have already surpassed this benchmark and we cannot prescribe narcotics for you. I encourage you to follow up with your primary care physician or to establish care with a primary care physician for ongoing pain management. You are always welcome to seek emergency care here for this or new issues but there will likely be limitations in the prescription of narcotic pain medication.
--- NOTE | 2019-03-08 18:58 | XRAY Report ---
Reason: rib/scapula inj Procedure Date: 03/08/2019 Accession Number: [id number] / [id number] Procedure: XR - Scapula 2 View LT CPT Code: FULL RESULT: EXAM: LEFT SCAPULA RADIOGRAPHY EXAM DATE: 03/08/2019 06:23 PM. CLINICAL HISTORY: Rib/scapula inj. COMPARISON: CHEST 2 VIEW 02/09/2019 2:22 PM RIBS W/PA CHEST LT 03/08/2019 5:57 PM. TECHNIQUE: 2 views. FINDINGS: Bones: No fracture or focal bony lesion. Joints: No evidence of dislocation. Soft Tissues: No unexpected soft tissue findings. IMPRESSION: No evidence of fracture or dislocation. RADIA
--- NOTE | 2019-03-08 19:05 | XRAY Report ---
Reason: rib/scapula inj Procedure Date: 03/08/2019 Accession Number: [id number] / [id number] Procedure: XR - Ribs w/PA Chest LT CPT Code: FULL RESULT: EXAM: LEFT RIB RADIOGRAPHY EXAM DATE: 03/08/2019 06:28 PM. CLINICAL HISTORY: Seizure Thursday. Rib/scapula injury. COMPARISON: CHEST 2 VIEW 02/09/2019 2:22 PM SCAPULA 2 VIEW LT 03/08/2019 5:57 PM. TECHNIQUE: 1 view of the chest and 4 views of the ribs. FINDINGS: Bones: Normal. No fracture or bone lesion. Lungs: No focal opacities. No pneumothorax. No pleural effusions. Mediastinum: Heart and mediastinal contours are unremarkable. Other: None. IMPRESSION: Normal chest and rib radiography. RADIA
== END 2019-03-08 19:25 | disposition home or self-care (01) ==
LOC: ED 16:25
DX: S43.402A Unspecified sprain of left shoulder joint, initial encounter (principal); S20.212A Contusion of left front wall of thorax, initial encounter; X58.XXXA Exposure to other specified factors, initial encounter; G40.909 Epilepsy, unspecified, not intractable, without status epilepticus; I10 Essential (primary) hypertension; E11.9 Type 2 diabetes mellitus without complications; Z79.84 Long term (current) use of oral hypoglycemic drugs; F17.200 Nicotine dependence, unspecified, uncomplicated
CPT/HCPCS: 71101; 73010; 99282; 99284; A9270

== ENCOUNTER 2019-03-17 19:25 | Emergency (ER) | payer MEDICARE, MEDICAID ==
[2019-03-17] MEDS ORDERED: SODIUM CHLORIDE 0.9% 1,000 ML IV ONE (20:20)
[2019-03-17] MEDS ORDERED: cefTRIAXone 1 GM in SODIUM CHLORIDE 0.9% MINIBAG 100 ML IV STA (20:20)
[2019-03-17] MEDS ORDERED: KETOROLAC 30 MG/ML VIAL IVP STA (20:20)
[2019-03-17] MEDS ORDERED: IPRATROPIUM/ALBUTEROL 3 ML NEB INH STA (20:20)
[2019-03-17] MEDS ORDERED: MAGNESIUM SULFATE 2 GRAM 2 GM/50 ML BAG IV ONE (20:20)
--- NOTE | 2019-03-17 20:24 | ED Physician Documentation ---
PD HPI DYSPNEA - Stated complaint Stated Complaint: JACQUE SZ - Chief complaint Chief Complaint: Neuro - History obtained from History obtained from: Patient, Family - History of Present Illness Timing - onset: How many days ago (5) Timing - onset during: Rest Timing - duration: Days (5) Timing - details: Gradual onset, Still present Inciting event(s): URI Improved by: Inhaler/neb Worsened by: Exertion, Coughing Associated symptoms: Cough, Wheezing, Chest pain / discomfort, Anxiety, Other (seizure and shoulder pain) Similar symptoms before: Diagnosis (seizure, pseudoseizure and bronchitis with asthma) Recently seen: Clinic (seen yesterday for bronchitis and is now on doxycycline) - Additional information Additional information: 39-year-old female schizophrenic well-known to the emergency department has developed bronchitis in the past 5 days and she has had seizures today as well as pain in her shoulders. She is coming to the emergency department now crying and having a difficult time breathing. She is unable to take steroids secondary to pseudotumor. Review of Systems Constitutional: reports: Myalgias, Fatigue. denies: Fever Eyes: denies: Decreased vision Ears: reports: Ear pain Nose: reports: Rhinorrhea / runny nose, Congestion Throat: denies: Sore throat Cardiac: reports: Chest pain / pressure. denies: Palpitations, Pedal edema, Calf pain Respiratory: reports: Dyspnea, Cough, Wheezing GI: denies: Abdominal Pain, Nausea, Vomiting : denies: Dysuria, Frequency Musculoskeletal: reports: Back pain. denies: Neck pain Neurologic: denies: Generalized weakness, Focal weakness, Numbness PD PAST MEDICAL HISTORY - Past Medical History Cardiovascular: Hypertension Respiratory: Asthma, COPD Neuro: Seizure disorder Endocrine/Autoimmune: Type 2 diabetes GI: GERD FISHER DIP NET: Ovarian cysts : Incontinence HEENT: None Psych: Bipolar disorder Musculoskeletal: Osteoarthritis, Osteoporosis Derm: Other drug resistant infections - Past Surgical History Past Surgical History: Yes General: Cholecystectomy /FISHER DIP NET: Tubal ligation, Other HEENT: Tonsil/Adenoidectomy, Other - Present Medications Home Medications: Ambulatory Orders Medication Instructions Recorded Confirmed Zonisamide [Zonegran] 200 mg PO BID 12/02/16 10/12/18 Metformin HCl 1,000 mg PO BIDWM 02/15/17 10/12/18 acetaZOLAMIDE [Acetazolamide ER] 1,000 mg PO BID 02/15/17 10/12/18 Atorvastatin Calcium 40 mg PO QPM 05/26/17 10/12/18 Albuterol Sulfate [Proventil Hfa 1 - 2 puffs IH Q4H PRN #1 11/26/17 10/12/18 Inhaler] hfa.aer.ad Meloxicam [Mobic] 15 mg PO DAILY PRN #20 tablet 08/19/18 10/12/18 Ciprofloxacin [Cipro] 250 mg PO Q12H #10 tablet 10/12/18 Methocarbamol 1 tab ORAL TID 10/12/18 10/12/18 Pantoprazole [Protonix] 1 tab ORAL DAILY 10/12/18 10/12/18 Promethazine [Phenergan] 25 mg PO Q6H PRN #10 tab 10/12/18 Oxycodone HCl/Acetaminophen 1 - 2 each PO Q6H PRN #14 tablet 11/13/18 [Percocet 5-325 mg Tablet] Doxycycline Hyclate 100 mg PO BID #14 capsule 12/23/18 Loratadine [Allergy Relief] 10 mg PO DAILY #10 tablet 12/25/18 Cephalexin [Keflex] 500 mg PO Q6H #28 capsule 01/12/19 Clindamycin HCl [Clindamycin 300MG 300 mg PO Q6H #28 capsule 01/23/19 CAP] Acetaminophen/Cod 300/30 [Tylenol 1 each PO Q4-6H PRN #10 tablet 02/16/19 #3] Cefdinir 300 mg PO BID #20 capsule 03/17/19 - Allergies Allergies/Adverse Reactions: Allergies Allergy/AdvReac Type Severity Reaction Status Date / Time doxycycline Allergy Intermediate Rash Verified 03/17/19 22:46 Latex, Natural Rubber Allergy Mild Rash Verified 03/08/19 16:33 acetaminophen [From Vicodin] Allergy Hives Verified 03/08/19 16:33 ciprofloxacin [From Cipro] Allergy Unknown Verified 03/08/19 16:33 hydrocodone bitartrate * Allergy Hives Verified 03/08/19 16:33 [From Vicodin] Penicillins Allergy Rash Verified 03/08/19 16:33 tramadol Allergy Rash Verified 03/08/19 16:33 adhesive AdvReac Intermediate chemical Verified 03/08/19 16:33 logan haloperidol [From Haldol] AdvReac Unknown Hallucinati Verified 03/08/19 16:33 ons iodine AdvReac Unknown Rash Verified 03/08/19 16:33 latex AdvReac Unknown Respiratory Verified 03/08/19 16:33 lamotrigine [From Lamictal] AdvReac Rash Verified 03/08/19 16:33 varenicline tartrate * AdvReac Hallucinati Verified 03/08/19 16:33 [From Chantix] ons bee Allergy Unknown Uncoded 03/08/19 16:33 steriods AdvReac Intermediate Unknown Uncoded 03/08/19 16:33 - Social History Does the pt smoke?: Yes Smoking Status: Current every day smoker Does the pt drink ETOH?: Yes Does the pt have substance abuse?: Yes - Immunizations Immunizations are current?: No - POLST Patient has POLST: No POLST Status: Full Code PD ED PE NORMAL - Vitals Vital signs reviewed: Yes (normal ) - General General: Well developed/nourished, Other (39 y/o female is crying and in pain ) - HEENT HEENT: Atraumatic, PERRL, EOMI, Other (Left TM is inflamed with indistinct landmarks and the right is inflamed. The pharynx is without a uvual ) - Neck Neck: Supple, no meningeal sign, No bony TTP - Cardiac Cardiac: RRR, No murmur - Respiratory Respiratory: No respiratory distress, Other (diminished breath sounds with scattered wheezes) - Abdomen Abdomen: Soft, Non tender - Back Back: No CVA TTP, No spinal TTP, Other (There is tenderness to the rhomboid muscles bilaterally ) - Derm Derm: Normal color, No rash - Extremities Extremities: No deformity, No edema - Neuro Neuro: Alert and oriented X 3, account development specialist 2-12 intact, No motor deficit, No sensory deficit, Normal speech Eye Opening: Spontaneous Motor: Obeys Commands Verbal: Oriented GCS Score: 15 - Psych Psych: Other (mood is defeated and the affect is sad. ) Results - Vitals Vitals: Vital Signs - 24 hr 03/17/19 03/17/19 03/17/19 19:50 20:19 20:21 Temperature 37.0 C Heart Rate 70 84 75 Respiratory 16 16 17 Rate Blood Pressure 126/78 109/83 H 118/78 O2 Saturation 97 99 99 03/17/19 03/17/19 03/17/19 21:00 21:30 22:29 Temperature 37.6 C H Heart Rate 69 69 75 Respiratory 17 20 17 Rate Blood Pressure 119/67 102/58 L 126/88 H O2 Saturation 98 97 98 Oxygen O2 Source Room air - Labs Labs: Laboratory Tests 03/17/19 03/17/19 03/17/19 20:37 20:37 21:19 WBC 8.7 RBC 4.99 Hgb 15.4 Hct 46.3 MCV 92.8 MCH 30.9 MCHC 33.3 RDW 12.9 Plt Count 244 MPV 9.3 Neut # (Auto) 4.9 Lymph # (Auto) 2.8 [place] # (Auto) 0.6 Eos # (Auto) 0.2 Baso # (Auto) 0.1 Absolute Nucleated RBC 0.00 Nucleated RBC % 0.0 Sodium 140 Potassium 3.7 Chloride 105 Carbon Dioxide 25 Anion Gap 10.0 BUN 11 Creatinine 0.6 Estimated GFR (MDRD) 112 Glucose 145 H Calcium 9.5 Total Bilirubin 0.9 AST < 10 L ALT 13 Alkaline Phosphatase 45 Total Protein 7.6 Albumin 4.6 Globulin 3.0 Albumin/Globulin Ratio 1.5 Lipase 36 Urine Color YELLOW Urine Clarity CLEAR Urine pH 7.5 Ur Specific [place] 1.010 Urine Protein NEGATIVE Urine Glucose (UA) NEGATIVE Urine Ketones NEGATIVE Urine Occult Blood NEGATIVE Urine Nitrite NEGATIVE Urine Bilirubin NEGATIVE Urine Urobilinogen 0.2 (NORMAL) Ur Leukocyte Esterase NEGATIVE Ur Microscopic Review NOT INDICATED Urine Culture Comments NOT INDICATED - Rads (name of study) chest Radiology: Prelim report reviewed (Impression: No acute cardiopulmonary process identified radiographically.), EMP read indepedently, See rad report PD MEDICAL DECISION MAKING - ED course Complexity details: reviewed old records, reviewed results, re-evaluated patient, considered differential, d/w patient, d/w family ED course: 39-year-old female with a comp gated medical history including intracranial hypertension and asthma has developed exacerbation of her asthma with otitis on exam. She has been treated with doxycycline beginning today and she required a DuoNeb treatment for improvement as well as some magnesium given intravenously and some intravenous fluid. During her stay here in the emergency department she did have some red plaque-like eruptions on her thighs similar to what she has had back in December of this year. She was treated with hydroxyzine with some improvement in her itching. She has had this previously and she is having allergy testing done this week. I reviewed her medical chart here in the emergency department and I do see that previously (Dec 2018) she had been on doxycycline for 2 days when she came into the emergency department complaining of this specific rash. She states this is a similar rash to what she had back then and she has had this happen to her about 4 times. This was thought at one point to be due to Septra and on reading the chart the patient did indicate to the provider that she was on Septra when indeed she was on doxycycline. The patient now is able to recall that these other episodes also occurred with doxycycline. She is uncertain whether 1 or 2 of the episodes may have occurred with Septra. Her rash appears to be a fixed drug eruption and we have discontinued her doxycycline and will place her on Cefdinir. Departure - Departure Disposition: 01 Home, Self Care Clinical Impression: Fixed drug eruption Otitis media Qualifiers: Otitis media type: suppurative Chronicity: acute Laterality: bilateral Recurrence: recurrent Spontaneous tympanic membrane rupture: without spontaneous rupture Qualified Code(s): H66.006 - Acute suppurative otitis media without spontaneous rupture of ear drum, recurrent, bilateral Asthma exacerbation Qualifiers: Asthma severity: moderate Asthma persistence: persistent Qualified Code(s): J45.41 - Moderate persistent asthma with (acute) exacerbation Condition: Stable Instructions: ED Drug React Allergic, ED Reactive Airway Disease, ED Otitis Media Acute Adult Follow-Up: Cassia Main PA [Primary Care Provider] - Prescriptions: Cefdinir 300 mg PO BID #20 capsule Comments: Today the rash you have appears to be a fixed drug eruption likely related to e doxycycline. We recommend you stop the doxycycline and start the Cefdinir tomorrow. Today you were given a dose of Rocephin intravenously.
--- NOTE | 2019-03-17 20:48 | XRAY Report ---
Reason: soa Procedure Date: 03/17/2019 Accession Number: [id number] / [id number] Procedure: XR - Chest 1 View X-Ray CPT Code: 41850 FULL RESULT: EXAM: CHEST RADIOGRAPHY EXAM DATE: 03/17/2019 08:38 PM. CLINICAL HISTORY: Redness of breath. COMPARISON: SCAPULA 2 VIEW LT 03/08/2019 5:57 PM RIBS W/PA CHEST LT 03/08/2019 5:57 PM CHEST 2 VIEW 02/09/2019 2:22 PM CHEST 1 VIEW 12/23/2018 8:48 PM. TECHNIQUE: 1 view. FINDINGS: Lungs/Pleura: No focal opacities evident. No pleural effusion. No pneumothorax. Mediastinum: Heart size within normal limits given technique. No pulmonary vascular congestion. Other: None. IMPRESSION: No acute cardiopulmonary process identified radiographically. RADIA
[2019-03-17 21:07] LABS: BASOPHILS # (AUTO) 0.1 10^3/uL (0.0-0.1); BASOPHILS % (AUTO) 0.8 %; EOSINOPHILS # (AUTO) 0.2 10^3/uL (0.0-0.7); HGB - HEMOGLOBIN 15.4 g/dL (12.0-16.0); LYMPHOCYTES # (AUTO) 2.8 10^3/uL (1.5-3.5); LYMPHOCYTES % (AUTO) 32.8 %; MEAN CORPUSCULAR HEMOGLOBIN 30.9 pg (27.0-31.0); MEAN CORPUSCULAR HGB CONC 33.3 g/dL (32.0-36.0); MEAN CORPUSCULAR VOLUME 92.8 fL (81.0-99.0); MEAN PLATELET VOLUME 9.3 fL (7.9-10.8); MONOCYTES # (AUTO) 0.6 10^3/uL (0.0-1.0); MONOCYTES % (AUTO) 7.4 %; NEUTROPHILS # (AUTO) 4.9 10^3/uL (1.5-6.6); NEUTROPHILS % (AUTO) 56.7 %; PLT - PLATELET COUNT 244 10^3/uL (130-450); RED BLOOD COUNT 4.99 10^6/uL (4.20-5.40); RED CELL DISTRIBUTION WIDTH 12.9 % (12.0-15.0); WHITE BLOOD COUNT 8.7 x10^3/uL (4.8-10.8)
[2019-03-17] MEDS ORDERED: hydrOXYzine PAMOATE 25 MG CAPSULE PO STA (21:18)
[2019-03-17 21:20] LABS: ALBUMIN 4.6 g/dL (3.2-5.5); ALBUMIN/GLOBULIN RATIO 1.5 (1.0-2.2); ALKALINE PHOSPHATASE 45 IU/L (42-121); ALT ALANINE AMINOTRANSFERASE 13 IU/L (10-60); AST ASPARTATE AMINOTRANSFERASE < 10 IU/L (10-42); BILIRUBIN,TOTAL 0.9 mg/dL (0.2-1.0); BUN - BLOOD UREA NITROGEN 11 mg/dL (6-20); CALCIUM 9.5 mg/dL (8.5-10.3); CARBON DIOXIDE - CO2 25 mmol/L (21-32); CHLORIDE 105 mmol/L (101-111); CREATININE 0.6 mg/dL (0.4-1.0); GFR - MDRD 112 (>89); GLUCOSE 145 mg/dL (70-100); LIPASE 36 U/L (22-51); SODIUM 140 mmol/L (135-145); TOTAL PROTEIN 7.6 g/dL (6.7-8.2)
[2019-03-17 21:26] LABS: BILIRUBIN,URINE NEGATIVE (NEGATIVE); GLUCOSE, URINE (UA) NEGATIVE (NEGATIVE); KETONES,URINE (UA) NEGATIVE (NEGATIVE); LEUKOCYTE ESTERASE, URINE NEGATIVE (NEGATIVE); NITRITE,URINE NEGATIVE (NEGATIVE); OCCULT BLOOD,URINE NEGATIVE (NEGATIVE); PH,URINE 7.5 PH (5.0-7.5); PROTEIN,URINE NEGATIVE (NEGATIVE); UROBILINOGEN,URINE 0.2 (NORMAL) E.U./dL (NORMAL)
[2019-03-17 21:28] LABS: CLARITY,URINE CLEAR (CLEAR)
[2019-03-17 22:30] VITALS: BP 126/88
== END 2019-03-17 22:55 | disposition home or self-care (01) ==
LOC: ED 19:25
DX: H66.006 Acute suppurative otitis media without spontaneous rupture of ear drum, recurrent, bilateral (principal); J45.41 Moderate persistent asthma with (acute) exacerbation; J44.9 Chronic obstructive pulmonary disease, unspecified; L27.1 Localized skin eruption due to drugs and medicaments taken internally; T36.4X5A Adverse effect of tetracyclines, initial encounter; Y92.538 Other ambulatory health services establishments as the place of occurrence of the external cause; I10 Essential (primary) hypertension; E11.9 Type 2 diabetes mellitus without complications; Z79.84 Long term (current) use of oral hypoglycemic drugs; F20.9 Schizophrenia, unspecified; F17.200 Nicotine dependence, unspecified, uncomplicated
CPT/HCPCS: 36415; 71045; 80053; 81003; 83690; 85025; 96365; 96368; 96375; 99284; A9270; 81001; 87086

== ENCOUNTER 2019-03-31 16:22 | Emergency (ER) | payer MEDICARE, MEDICAID ==
--- NOTE | 2019-03-31 17:01 | XRAY Report ---
Reason: cough with SOA Procedure Date: 03/31/2019 Accession Number: [id number] / [id number] Procedure: XR - Chest 2 View X-Ray CPT Code: 49504 Final Report FULL RESULT: EXAM: CHEST RADIOGRAPHY EXAM DATE: 03/31/2019 04:49 PM. CLINICAL HISTORY: Cough with shortness of breath. COMPARISON: CHEST 1 VIEW 03/17/2019 8:15 PM. TECHNIQUE: 2 views. FINDINGS: Lungs/Pleura: No focal opacities evident. No bronchial cuffing or interstitial abnormality. No pleural effusion. No pneumothorax. Normal volumes. Mediastinum: Heart and mediastinal contours are unremarkable. Other: None. IMPRESSION: Normal 2-view chest radiography. RADIA
[2019-03-31] MEDS ORDERED: ALBUTEROL NEB 2.5 MG/3 ML INH STA (17:26)
--- NOTE | 2019-03-31 17:26 | ED Physician Documentation ---
PD HPI URI - Stated complaint Stated Complaint: SOA - Chief complaint Chief Complaint: Resp - History obtained from History obtained from: Patient - History of Present Illness Timing - onset: How many weeks ago (1) Timing duration: Weeks (1) Timing details: Gradual onset Pain level now: 0 Associated symptoms: Fever, Nasal congestion, Sinus pain, Dry cough, Dyspnea. No: Ear pain, Hemoptysis Contributing factors: COPD / asthma. No: Sick contact Improves by: MDI/nebulizer Similar symptoms before: Diagnosis Recently seen: Not recently seen - Additional information Additional information: Is a 39-year-old woman who presents with her significant other complaints that she is having difficulty breathing. She says the symptoms started 5 days ago with sinus pressure and sinus infection productive of mucus. She has a history of asthma and smokes still. She ran out of her inhaler today. It really was not helping much. She was using an albuterol nebulizer. She says she cannot take steroids at all in any form because it causes intracranial hypertension. She is coughing but not bringing up any phlegm. She is been vomiting secondary to the coughing and has felt nauseous. She has had subjective fevers. 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 GAS DISTRIBUTION: Ovarian cysts : Incontinence HEENT: None Psych: Bipolar disorder Musculoskeletal: Osteoarthritis, Osteoporosis Derm: Other drug resistant infections - Past Surgical History Past Surgical History: Yes General: Cholecystectomy /SUPERINTENDENT GAS DISTRIBUTION: Tubal ligation, Other HEENT: Tonsil/Adenoidectomy, Other - Present Medications Home Medications: Ambulatory Orders Medication Instructions Recorded Confirmed Zonisamide [Zonegran] 200 mg PO BID 12/02/16 10/12/18 Metformin HCl 1,000 mg PO BIDWM 02/15/17 10/12/18 acetaZOLAMIDE [Acetazolamide ER] 1,000 mg PO BID 02/15/17 10/12/18 Atorvastatin Calcium 40 mg PO QPM 05/26/17 10/12/18 Albuterol Sulfate [Proventil Hfa 1 - 2 puffs IH Q4H PRN #1 11/26/17 10/12/18 Inhaler] hfa.aer.ad Meloxicam [Mobic] 15 mg PO DAILY PRN #20 tablet 08/19/18 10/12/18 Ciprofloxacin [Cipro] 250 mg PO Q12H #10 tablet 10/12/18 Methocarbamol 1 tab ORAL TID 10/12/18 10/12/18 Pantoprazole [Protonix] 1 tab ORAL DAILY 10/12/18 10/12/18 Promethazine [Phenergan] 25 mg PO Q6H PRN #10 tab 10/12/18 Oxycodone HCl/Acetaminophen 1 - 2 each PO Q6H PRN #14 tablet 11/13/18 [Percocet 5-325 mg Tablet] Doxycycline Hyclate 100 mg PO BID #14 capsule 12/23/18 Loratadine [Allergy Relief] 10 mg PO DAILY #10 tablet 12/25/18 Cephalexin [Keflex] 500 mg PO Q6H #28 capsule 01/12/19 Clindamycin HCl [Clindamycin 300MG 300 mg PO Q6H #28 capsule 01/23/19 CAP] Acetaminophen/Cod 300/30 [Tylenol 1 each PO Q4-6H PRN #10 tablet 02/16/19 #3] Cefdinir 300 mg PO BID #20 capsule 03/17/19 Albuterol Sulf [Ventolin Hfa 1 - 2 puffs INH Q4HR PRN #1 inhaler 03/31/19 Inhaler] Azithromycin [Zithromax] 0 mg PO DAILY #6 tablet 03/31/19 - Allergies Allergies/Adverse Reactions: Allergies Allergy/AdvReac Type Severity Reaction Status Date / Time doxycycline Allergy Intermediate Rash Verified 03/17/19 22:46 Latex, Natural Rubber Allergy Mild Rash Verified 03/08/19 16:33 acetaminophen [From Vicodin] Allergy Hives Verified 03/08/19 16:33 ciprofloxacin [From Cipro] Allergy Unknown Verified 03/08/19 16:33 hydrocodone bitartrate * Allergy Hives Verified 03/08/19 16:33 [From Vicodin] Penicillins Allergy Rash Verified 03/08/19 16:33 tramadol Allergy Rash Verified 03/08/19 16:33 adhesive AdvReac Intermediate chemical Verified 03/08/19 16:33 logan haloperidol [From Haldol] AdvReac Unknown Hallucinati Verified 03/08/19 16:33 ons iodine AdvReac Unknown Rash Verified 03/08/19 16:33 latex AdvReac Unknown Respiratory Verified 03/08/19 16:33 lamotrigine [From Lamictal] AdvReac Rash Verified 03/08/19 16:33 varenicline tartrate * AdvReac Hallucinati Verified 03/08/19 16:33 [From Chantix] ons bee Allergy Unknown Uncoded 03/08/19 16:33 steriods AdvReac Intermediate Unknown Uncoded 03/08/19 16:33 - Social History Does the pt smoke?: Yes Smoking Status: Current every day smoker Does the pt drink ETOH?: Yes Does the pt have substance abuse?: Yes - Immunizations Immunizations are current?: No - POLST Patient has POLST: No POLST Status: Full Code PD ED PE NORMAL - Vitals Vital signs reviewed: Yes - General General: Alert and oriented X 3, No acute distress, Well developed/nourished - HEENT HEENT: Atraumatic, PERRL, Ears normal, Moist mucous membranes, Other (She status post uvulectomy. There is nasal mucosal bogginess with just clear discharge noted. Tender over the frontal sinuses.) - Neck Neck: No adenopathy, Thyroid normal - Cardiac Cardiac: RRR, No murmur, Strong equal pulses - Respiratory Respiratory: No respiratory distress, Clear bilaterally, Other (Speaks in 1-2 word sentences.) - Abdomen Abdomen: Normal bowel sounds, Other (Obese) - Derm Derm: Normal color, Warm and dry, No rash - Extremities Extremities: No edema - Neuro Neuro: Alert and oriented X 3, No motor deficit, No sensory deficit - Psych Psych: Normal mood, Normal affect Results - Vitals Vitals: Vital Signs - 24 hr 03/31/19 03/31/19 03/31/19 16:28 17:45 18:00 Temperature 37.2 C Heart Rate 80 77 90 Respiratory 18 18 20 Rate Blood Pressure 121/74 O2 Saturation 100 96 03/31/19 18:23 Temperature Heart Rate 86 Respiratory 18 Rate Blood Pressure 166/99 H O2 Saturation 97 Oxygen O2 Source Room air - Rads (name of study) cxr Radiology: EMP read contemporaneously, See rad report (Neg acute) PD MEDICAL DECISION MAKING - ED course Complexity details: reviewed results, re-evaluated patient, d/w patient, d/w family ED course: Patient was given a 7.5 mg continuous albuterol. Her chest x-ray is clear, no pneumonia. When I reevaluated her she still had some wheezing but she says that is pretty much her baseline. She was able to talk in complete sentences and said that she was feeling much better. She has a host of medication allergies and intolerances but can tolerate the Zithromax, so she is put on a Z-Pee. She is given a prescription for an inhaler and she has nebulizer solution at home. Follow-up if her symptoms are worsening. Departure - Departure Disposition: Home, Self Care Clinical Impression: Sinusitis Qualifiers: Sinusitis location: unspecified location Chronicity: acute Recurrence: recurrent Qualified Code(s): J01.91 - Acute recurrent sinusitis, unspecified Asthma Qualifiers: Asthma severity: moderate Asthma persistence: unspecified Asthma complication type: with acute exacerbation Qualified Code(s): J45.901 - Unspecified asthma with (acute) exacerbation Condition: Good Instructions: ED Bronchitis Asthmatic, ED Sinusitis Abx Tx Follow-Up: Cassia Main PA [Primary Care Provider] - Prescriptions: Albuterol Sulf [Ventolin Hfa Inhaler] 1 - 2 puffs INH Q4HR PRN #1 inhaler PRN Reason: Shortness Of Air/Wheezing Azithromycin [Zithromax] 0 mg PO DAILY #6 tablet Comments: Continue to use your nebulizer up to every 4 hours. I also refilled the prescription for your inhaler. Start the Z-Pee as soon as possible. Return to the emergency department if you have worsening of your breathing. Discharge Date/Time: 03/31/19 18:33
[2019-03-31 18:24] VITALS: BP 166/99
== END 2019-03-31 18:33 | disposition home or self-care (01) ==
LOC: ED 16:22
DX: J01.91 Acute recurrent sinusitis, unspecified (principal); J45.901 Unspecified asthma with (acute) exacerbation; J44.9 Chronic obstructive pulmonary disease, unspecified; F17.200 Nicotine dependence, unspecified, uncomplicated; I10 Essential (primary) hypertension; E11.9 Type 2 diabetes mellitus without complications; Z79.84 Long term (current) use of oral hypoglycemic drugs; Z88.0 Allergy status to penicillin; Z88.8 Allergy status to other drugs, medicaments and biological substances
CPT/HCPCS: 71046; 94640; 99283; 99284

== ENCOUNTER 2019-04-02 00:27 | Outpatient (CLI) | payer MEDICARE, MEDICAID | END 2019-04-02 00:28 | disposition critical access hospital (66) | LOC: EMS 00:27 | PROVIDERS: ATTEND Surgery | DX: R51 Headache (principal); W01.198A Fall on same level from slipping, tripping and stumbling with subsequent striking against other object, initial encounter; Y93.01 Activity, walking, marching and hiking; Y92.038 Other place in apartment as the place of occurrence of the external cause | CPT/HCPCS: A0425; A0429 ==

== ENCOUNTER 2019-04-02 00:31 | Emergency (ER) | payer MEDICARE, MEDICAID ==
[2019-04-02] MEDS ORDERED: MIDAZOLAM 2 MG/2 ML VIAL IM STA ×2 (00:48→00:49)
--- NOTE | 2019-04-02 00:48 | ED Physician Documentation ---
PD HPI SEIZURE - Stated complaint Stated Complaint: SZ - History obtained from History obtained from: Patient, Family - History of Present Illness Timing - onset: How many hours ago (1) Witnessed: Witnessed Number of seizures: Multiple, Lasted minutes (she has history of seizures and has had "less" lately, about once weekly on average. She struck the right/back of head on window sill getting into bed about an hour ago and had a seizure about 30 seconds later. It lasted 2 minutes then stopped and patient awoke few minutes later, but then had another seizure also about 2 minutes. Spouse called EMS. Concern was with the head injury and then with 2 close seizures, which is less common for her.) Description of seizure activity: Generalized Injury during seizure: Head injury (she struck right back of head just prior to the seizure.) Associated symptoms: Headache. No: Nausea / vomiting History of seizures: Known seizure disorder Contributing factors: Head injury. No: Off meds, Substance abuse, Fever Similar symptoms before: Diagnosis (seizure disorder.) Recently seen: Emergency Dept (seen yesterday for URI symptoms and sinus pressure and Rx Zpack for sinus infection.) Review of Systems Constitutional: denies: Fever, Chills Nose: reports: Congestion, Sinus pressure / pain Throat: denies: Sore throat Cardiac: denies: Chest pain / pressure Respiratory: denies: Cough GI: reports: Nausea. denies: Abdominal Pain, Vomiting Skin: denies: Rash, Lesions Neurologic: reports: Generalized weakness. 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: Ovarian cysts : Incontinence HEENT: None Psych: Bipolar disorder Musculoskeletal: Osteoarthritis, Osteoporosis Derm: Other drug resistant infections - Past Surgical History Past Surgical History: Yes General: Cholecystectomy /SHIFT SUPERVISOR RN: Tubal ligation, Other HEENT: Tonsil/Adenoidectomy, Other - Present Medications Home Medications: Ambulatory Orders Medication Instructions Recorded Confirmed Zonisamide [Zonegran] 200 mg PO BID 12/02/16 10/12/18 Metformin HCl 1,000 mg PO BIDWM 02/15/17 10/12/18 acetaZOLAMIDE [Acetazolamide ER] 1,000 mg PO BID 02/15/17 10/12/18 Atorvastatin Calcium 40 mg PO QPM 05/26/17 10/12/18 Albuterol Sulfate [Proventil Hfa 1 - 2 puffs IH Q4H PRN #1 11/26/17 10/12/18 Inhaler] hfa.aer.ad Meloxicam [Mobic] 15 mg PO DAILY PRN #20 tablet 08/19/18 10/12/18 Ciprofloxacin [Cipro] 250 mg PO Q12H #10 tablet 10/12/18 Methocarbamol 1 tab ORAL TID 10/12/18 10/12/18 Pantoprazole [Protonix] 1 tab ORAL DAILY 10/12/18 10/12/18 Promethazine [Phenergan] 25 mg PO Q6H PRN #10 tab 10/12/18 Oxycodone HCl/Acetaminophen 1 - 2 each PO Q6H PRN #14 tablet 11/13/18 [Percocet 5-325 mg Tablet] Doxycycline Hyclate 100 mg PO BID #14 capsule 12/23/18 Loratadine [Allergy Relief] 10 mg PO DAILY #10 tablet 12/25/18 Cephalexin [Keflex] 500 mg PO Q6H #28 capsule 01/12/19 Clindamycin HCl [Clindamycin 300MG 300 mg PO Q6H #28 capsule 01/23/19 CAP] Acetaminophen/Cod 300/30 [Tylenol 1 each PO Q4-6H PRN #10 tablet 02/16/19 #3] Cefdinir 300 mg PO BID #20 capsule 03/17/19 Albuterol Sulf [Ventolin Hfa 1 - 2 puffs INH Q4HR PRN #1 inhaler 03/31/19 Inhaler] Azithromycin [Zithromax] 0 mg PO DAILY #6 tablet 03/31/19 - Allergies Allergies/Adverse Reactions: Allergies Allergy/AdvReac Type Severity Reaction Status Date / Time doxycycline Allergy Intermediate Rash Verified 04/02/19 00:33 Latex, Natural Rubber Allergy Mild Rash Verified 04/02/19 00:33 acetaminophen [From Vicodin] Allergy Hives Verified 04/02/19 00:33 ciprofloxacin [From Cipro] Allergy Unknown Verified 04/02/19 00:33 hydrocodone bitartrate * Allergy Hives Verified 04/02/19 00:33 [From Vicodin] Penicillins Allergy Rash Verified 04/02/19 00:33 tramadol Allergy Rash Verified 04/02/19 00:33 adhesive AdvReac Intermediate chemical Verified 04/02/19 00:33 logan haloperidol [From Haldol] AdvReac Unknown Hallucinati Verified 04/02/19 00:33 ons iodine AdvReac Unknown Rash Verified 04/02/19 00:33 latex AdvReac Unknown Respiratory Verified 04/02/19 00:34 lamotrigine [From Lamictal] AdvReac Rash Verified 04/02/19 00:34 varenicline tartrate * AdvReac Hallucinati Verified 04/02/19 00:34 [From Chantix] ons bee Allergy Unknown Uncoded 04/02/19 00:34 steriods AdvReac Intermediate Unknown Uncoded 04/02/19 00:34 - Social History Does the pt smoke?: Yes Smoking Status: Current every day smoker Does the pt drink ETOH?: Yes Does the pt have substance abuse?: Yes - Immunizations Immunizations are current?: No - POLST Patient has POLST: No POLST Status: Full Code PD ED PE NORMAL - Vitals Vital signs reviewed: Yes - General General: Alert and oriented X 3, Well developed/nourished - HEENT HEENT: Moist mucous membranes, Pharynx benign, Other (right parieto-occipital area with local tenderness and swelling. ) - Neck Neck: Supple, no meningeal sign, No bony TTP, No JVD - Cardiac Cardiac: RRR, No murmur - Respiratory Respiratory: Clear bilaterally, Other (no chestwall tenderness. ) - Abdomen Abdomen: Soft, Non tender - Back Back: No spinal TTP - Derm Derm: Normal color, Warm and dry - Extremities Extremities: No tenderness to palpate, Normal ROM s pain - Neuro Neuro: Alert and oriented X 3, rigger apprentice 2-12 intact, No motor deficit, No sensory deficit, Normal speech, Other Results - Vitals Vitals: Vital Signs - 24 hr 04/02/19 04/02/19 04/02/19 00:34 00:42 02:09 Temperature 37.0 C Heart Rate 80 75 83 Respiratory 16 16 14 Rate Blood Pressure 124/74 124/74 92/51 L O2 Saturation 95 95 92 04/02/19 03:35 Temperature Heart Rate 77 Respiratory 14 Rate Blood Pressure 115/59 L O2 Saturation 92 Oxygen O2 Source Room air - Rads (name of study) head CT Radiology: Prelim report reviewed (no acute intracranial process), See rad report PD MEDICAL DECISION MAKING - ED course Complexity details: considered differential (she had another self-limited seizure here in ER. Given IM Versed small dose. She rested and did not have another seizure. FSBS had been checked by EMS ENGINEERING MANAGER and was 180s. Known seizure disorder but did strike head (not on blood thinners). Concern for ICH and can get CT scan. No recent illness/fever, so did not feel need for sepsis/meningitis eval. Denies change meds and has been taking hers. Sinus infection could also be lowering seizure threshhold. ), d/w patient, d/w family Departure - Departure Disposition: 01 Home, Self Care Clinical Impression: Grand mal seizure, Seizure disorder Head contusion Qualifiers: Encounter type: initial encounter Contusion of head detail: scalp Qualified Code(s): S00.03XA - Contusion of scalp, initial encounter Condition: Stable Record reviewed to determine appropriate education?: Yes Instructions: ED Head Injury Closed Comments: Continue usual medications. Add Lorazepam later this morning if you continue to have increased seizure frequency today. Bumping her head as he did can trigger a seizure and presumably your seizure frequency will return to normal within a day or 2. [address] scan did not show any signs of bleeding or localized swelling in the brain compartment. He will still be sore from bumping her head and can use Tylenol if needed. Return if you have several more frequent seizures through the day today or tomorrow. Discharge Date/Time: 04/02/19 03:35
[2019-04-02] MEDS ORDERED: KETOROLAC 60 MG/2 ML VIAL IM STA (00:49)
--- NOTE | 2019-04-02 01:41 | CT Report ---
Reason: head contusion and seizure Procedure Date: 04/02/2019 Accession Number: [id number] / [id number] Procedure: CT - HEAD WO CPT Code: Final Report FULL RESULT: EXAM: CT HEAD EXAM DATE: 04/02/2019 01:19 AM. CLINICAL HISTORY: Head contusion and seizure. COMPARISON: HEAD W/O 11/22/2018 6:43 PM. TECHNIQUE: Multiaxial CT images were obtained from the foramen magnum to the vertex. Reformats: Sagittal and coronal. IV contrast: None. In accordance with CT protocol optimization, one or more of the following dose reduction techniques were utilized for this exam: automated exposure control, adjustment of mA and/or KV based on patient size, or use of iterative reconstructive technique. FINDINGS: Parenchyma: No intraparenchymal hemorrhage. No evidence of mass, midline shift, or CT findings of infarction. Mejia-white differentiation is distinct. Extraaxial Spaces: Normal for age. No subdural or epidural collections identified. Ventricles: Normal in size and position. Sinuses and Orbits: Imaged paranasal sinuses, orbits, and mastoids show no significant abnormality. Bones: No evidence of fracture or calvarial defect. Other: None. IMPRESSION: 1. No acute intracranial abnormality. RADIA
[2019-04-02] MEDS ORDERED: LORazepam 1 MG TABLET PO STA (02:43)
[2019-04-02 03:36] VITALS: BP 115/59
== END 2019-04-02 03:35 | disposition home or self-care (01) ==
LOC: EDUNIT# → ED 00:31
DX: G40.909 Epilepsy, unspecified, not intractable, without status epilepticus (principal); S00.03XA Contusion of scalp, initial encounter; W22.09XA Striking against other stationary object, initial encounter; Y93.89 Activity, other specified; Y92.003 Bedroom of unspecified non-institutional (private) residence as the place of occurrence of the external cause; I10 Essential (primary) hypertension; E11.9 Type 2 diabetes mellitus without complications; Z79.84 Long term (current) use of oral hypoglycemic drugs; F17.200 Nicotine dependence, unspecified, uncomplicated
CPT/HCPCS: 70450; 96372; 99283; J8499

== ENCOUNTER 2019-04-22 16:16 | Emergency (ER) | payer MEDICARE, MEDICAID ==
[2019-04-22 16:57] LABS: BILIRUBIN,URINE NEGATIVE (NEGATIVE); GLUCOSE, URINE (UA) 250 mg/dL (NEGATIVE); KETONES,URINE (UA) NEGATIVE (NEGATIVE); LEUKOCYTE ESTERASE, URINE NEGATIVE (NEGATIVE); NITRITE,URINE NEGATIVE (NEGATIVE); OCCULT BLOOD,URINE NEGATIVE (NEGATIVE); PH,URINE 6.5 PH (5.0-7.5); PROTEIN,URINE NEGATIVE (NEGATIVE); UROBILINOGEN,URINE 0.2 (NORMAL) E.U./dL (NORMAL)
[2019-04-22 17:00] LABS: CLARITY,URINE CLEAR (CLEAR); HCG UR QUAL NEGATIVE
[2019-04-22] MEDS ORDERED: KETOROLAC 60 MG/2 ML VIAL IM STA (17:00)
--- NOTE | 2019-04-22 18:02 | ED Physician Documentation ---
PD HPI ABD PAIN - Stated complaint Stated Complaint: LT SIDE PX - Chief complaint Chief Complaint: Abd Pain - History obtained from History obtained from: Patient - History of Present Illness Timing - onset: How many days ago (3) Timing - duration: Days (3) Timing - details: Gradual onset Pain level max: 7 Pain level now: 6 Quality: Aching, Pain Location: Other (L flank) Radiation: No: Chest, , Lower back, Left flank, Left shoulder, Right flank, Right shoulder, Upper back Improved by: Other (nothing) Worsened by: Other (nothing) Associated symptoms: Other (states urine has an odor). No: Fever, Nausea, Vomiting, Hematemesis, Diarrhea, Constipation, Melena, Hematochezia, Dysuria, Hematuria, Chest pain, Dizzy, Near syncope / syncope, Loss of appetite, Weight loss, Vaginal bleeding, Vaginal dc Recently seen: Not recently seen Review of Systems Constitutional: denies: Fever, Chills Respiratory: denies: Dyspnea, Cough GI: denies: Nausea, Vomiting, Diarrhea : denies: Dysuria, Frequency, Hesitancy Skin: denies: Rash Musculoskeletal: denies: Neck pain, Back pain Neurologic: denies: Headache PD PAST MEDICAL HISTORY - Past Medical History Cardiovascular: Hypertension Respiratory: Asthma, COPD Neuro: Seizure disorder Endocrine/Autoimmune: Type 2 diabetes GI: GERD 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: Ovarian cysts : Incontinence HEENT: None Psych: Bipolar disorder Musculoskeletal: Osteoarthritis, Osteoporosis Derm: Other drug resistant infections - Past Surgical History Past Surgical History: Yes General: Cholecystectomy /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: Tubal ligation, Other HEENT: Tonsil/Adenoidectomy, Other - Present Medications Home Medications: Ambulatory Orders Medication Instructions Recorded Confirmed Zonisamide [Zonegran] 200 mg PO BID 12/02/16 10/12/18 Metformin HCl 1,000 mg PO BIDWM 02/15/17 10/12/18 acetaZOLAMIDE [Acetazolamide ER] 1,000 mg PO BID 02/15/17 10/12/18 Atorvastatin Calcium 40 mg PO QPM 05/26/17 10/12/18 Albuterol Sulfate [Proventil Hfa 1 - 2 puffs IH Q4H PRN #1 11/26/17 10/12/18 Inhaler] hfa.aer.ad Meloxicam [Mobic] 15 mg PO DAILY PRN #20 tablet 08/19/18 10/12/18 Ciprofloxacin [Cipro] 250 mg PO Q12H #10 tablet 10/12/18 Methocarbamol 1 tab ORAL TID 10/12/18 10/12/18 Pantoprazole [Protonix] 1 tab ORAL DAILY 10/12/18 10/12/18 Promethazine [Phenergan] 25 mg PO Q6H PRN #10 tab 10/12/18 Oxycodone HCl/Acetaminophen 1 - 2 each PO Q6H PRN #14 tablet 11/13/18 [Percocet 5-325 mg Tablet] Doxycycline Hyclate 100 mg PO BID #14 capsule 12/23/18 Loratadine [Allergy Relief] 10 mg PO DAILY #10 tablet 12/25/18 Cephalexin [Keflex] 500 mg PO Q6H #28 capsule 01/12/19 Clindamycin HCl [Clindamycin 300MG 300 mg PO Q6H #28 capsule 01/23/19 CAP] Acetaminophen/Cod 300/30 [Tylenol 1 each PO Q4-6H PRN #10 tablet 02/16/19 #3] Cefdinir 300 mg PO BID #20 capsule 03/17/19 Albuterol Sulf [Ventolin Hfa 1 - 2 puffs INH Q4HR PRN #1 inhaler 03/31/19 Inhaler] Azithromycin [Zithromax] 0 mg PO DAILY #6 tablet 03/31/19 Meloxicam [Mobic] 15 mg PO DAILY PRN #20 tablet 04/22/19 - Allergies Allergies/Adverse Reactions: Allergies Allergy/AdvReac Type Severity Reaction Status Date / Time doxycycline Allergy Intermediate Rash Verified 04/22/19 16:23 Latex, Natural Rubber Allergy Mild Rash Verified 04/22/19 16:23 acetaminophen [From Vicodin] Allergy Hives Verified 04/22/19 16:23 ciprofloxacin [From Cipro] Allergy Unknown Verified 04/22/19 16:23 hydrocodone bitartrate * Allergy Hives Verified 04/22/19 16:23 [From Vicodin] Penicillins Allergy Rash Verified 04/22/19 16:23 tramadol Allergy Rash Verified 04/22/19 16:23 adhesive AdvReac Intermediate chemical Verified 04/22/19 16:23 logan haloperidol [From Haldol] AdvReac Unknown Hallucinati Verified 04/22/19 16:23 ons iodine AdvReac Unknown Rash Verified 04/22/19 16:23 latex AdvReac Unknown Respiratory Verified 04/22/19 16:23 lamotrigine [From Lamictal] AdvReac Rash Verified 04/22/19 16:23 varenicline tartrate * AdvReac Hallucinati Verified 04/22/19 16:23 [From Chantix] ons bee Allergy Unknown Uncoded 04/22/19 16:23 steriods AdvReac Intermediate Unknown Uncoded 04/22/19 16:23 - Social History Does the pt smoke?: Yes Smoking Status: Current every day smoker Does the pt drink ETOH?: Yes Does the pt have substance abuse?: Yes - Immunizations Immunizations are current?: No - POLST Patient has POLST: No POLST Status: Full Code PD ED PE NORMAL - Vitals Vital signs reviewed: Yes - General General: Alert and oriented X 3, No acute distress, Well developed/nourished - HEENT HEENT: Moist mucous membranes - Neck Neck: Supple, no meningeal sign - Cardiac Cardiac: RRR, Strong equal pulses - Respiratory Respiratory: No respiratory distress, Clear bilaterally - Abdomen Abdomen: Soft, Non tender, Non distended - Back Back: No CVA TTP - Derm Derm: Warm and dry, No rash - Extremities Extremities: No edema - Neuro Neuro: Alert and oriented X 3 - Psych Psych: Normal mood, Normal affect Results - Vitals Vitals: Vital Signs - 24 hr 04/22/19 04/22/19 16:20 18:13 Temperature 36.8 C 37.0 C Heart Rate 93 70 Respiratory 18 18 Rate Blood Pressure 127/81 H 117/75 O2 Saturation 97 98 Oxygen O2 Source Room air - Labs Labs: Laboratory Tests 04/22/19 04/22/19 16:34 16:34 Urine Color YELLOW Urine Clarity CLEAR Urine pH 6.5 Ur Specific Omer 1.020 1.020 Urine Protein NEGATIVE Urine Glucose (UA) 250 H Urine Ketones NEGATIVE Urine Occult Blood NEGATIVE Urine Nitrite NEGATIVE Urine Bilirubin NEGATIVE Urine Urobilinogen 0.2 (NORMAL) Ur Leukocyte Esterase NEGATIVE Ur Microscopic Review NOT INDICATED Urine Culture Comments NOT INDICATED Urine HCG, Qual NEGATIVE PD MEDICAL DECISION MAKING - ED course Complexity details: reviewed old records, reviewed results, re-evaluated patie nt, considered differential, d/w patient, d/w family ED course: Patient with left flank pain of unclear etiology. Feels better after Toradol. Sleeping soundly in the emergency department. No evidence of UTI, ureteral stone or pyelonephritis. No abdominal tenderness on exam. No symptoms of diverticulitis. No peritoneal signs. Patient counseled regarding signs and s ymptoms for which I believe and urgent re-evaluation would be necessary. Patient with good understanding of and agreement to plan and is comfortable going home at this time This document was made in part using voice recognition software. While efforts are made to proofread this document, sound alike and grammatical errors may occur. Departure - Departure Disposition: 01 Home, Self Care Clinical Impression: Flank pain Condition: Good Instructions: ED Flank Pain Uncertain Cause Follow-Up: Cassia Main PA [Primary Care Provider] - Within 1 week Prescriptions: Meloxicam [Mobic] 15 mg PO DAILY PRN #20 tablet PRN Reason: pain Comments: The cause of your symptoms is unclear. There is no infection in your urine today. Follow-up with your doctor for further care. Return if you worsen Discharge Date/Time: 04/22/19 19:08
[2019-04-22 18:14] VITALS: BP 117/75
== END 2019-04-22 19:08 | disposition home or self-care (01) ==
LOC: ED 16:16
DX: R10.9 Unspecified abdominal pain (principal); I10 Essential (primary) hypertension; E11.9 Type 2 diabetes mellitus without complications; F17.200 Nicotine dependence, unspecified, uncomplicated; Z79.84 Long term (current) use of oral hypoglycemic drugs
CPT/HCPCS: 80053; 81001; 81003; 81025; 83690; 85025; 87086; 96372; 99283; 99284

== ENCOUNTER 2019-05-08 20:16 | Emergency (ER) | payer MEDICARE, MEDICAID ==
[2019-05-08] MEDS ORDERED: ONDANSETRON ODT 4 MG TABLET TL STA (20:48)
[2019-05-08] MEDS ORDERED: KETOROLAC 60 MG/2 ML VIAL IM STA (20:49)
--- NOTE | 2019-05-08 20:50 | ED Physician Documentation ---
History of Present Illness - Stated complaint Stated Complaint: SZ - Chief complaint Chief Complaint: Neuro - History obtained from History obtained from: Patient, Friend - History of Present Illness Timing: Today Pain level now: 9 Improved by: nothing Worsened by: n/v worse with PO intake - Additonal information Additional information: this is patient's 24th [facility] ED visit over past 12 months. Multiple c/o. says she had a seizure this evening; s.o. describes 30 seconds of both hands shaking but no LOC. She is drowsy during my HPI; s.o. is at bedside and says "she just had another seizure that ended just as you walked in". the monitor shows regular pulse oximetry pleth s/o regular rhythm 60s bpm which correlates with when I perform cardiac auscultation. s.o. also says she has been having headache and neck pain today and he says this is often associated with her seizures (unclear if he means causative or resulting from). she then adds that she has had n/v since yesterday and "unable to keep my medications down tonight". also c/o diarrhea since yesterday. she says she last saw PMD last week, was given influenza and pneumonia vaccinations Review of Systems Constitutional: reports: Myalgias. denies: Fever, Chills, Sweats Cardiac: reports: Reviewed and negative Respiratory: reports: Reviewed and negative GI: reports: Abdominal Pain, Nausea, Vomiting, Diarrhea Musculoskeletal: reports: Neck pain. 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: Ovarian cysts : Incontinence HEENT: None Psych: Bipolar disorder Musculoskeletal: Osteoarthritis, Osteoporosis Derm: Other drug resistant infections - Past Surgical History Past Surgical History: Yes General: Cholecystectomy /CHAPERON: Tubal ligation, Other HEENT: Tonsil/Adenoidectomy, Other - Present Medications Home Medications: Ambulatory Orders Medication Instructions Recorded Confirmed Zonisamide [Zonegran] 200 mg PO BID 12/02/16 10/12/18 Metformin HCl 1,000 mg PO BIDWM 02/15/17 10/12/18 acetaZOLAMIDE [Acetazolamide ER] 1,000 mg PO BID 02/15/17 10/12/18 Atorvastatin Calcium 40 mg PO QPM 05/26/17 10/12/18 Albuterol Sulfate [Proventil Hfa 1 - 2 puffs IH Q4H PRN #1 11/26/17 10/12/18 Inhaler] hfa.aer.ad Meloxicam [Mobic] 15 mg PO DAILY PRN #20 tablet 08/19/18 10/12/18 Ciprofloxacin [Cipro] 250 mg PO Q12H #10 tablet 10/12/18 Methocarbamol 1 tab ORAL TID 10/12/18 10/12/18 Pantoprazole [Protonix] 1 tab ORAL DAILY 10/12/18 10/12/18 Promethazine [Phenergan] 25 mg PO Q6H PRN #10 tab 10/12/18 Oxycodone HCl/Acetaminophen 1 - 2 each PO Q6H PRN #14 tablet 11/13/18 [Percocet 5-325 mg Tablet] Doxycycline Hyclate 100 mg PO BID #14 capsule 12/23/18 Loratadine [Allergy Relief] 10 mg PO DAILY #10 tablet 12/25/18 Cephalexin [Keflex] 500 mg PO Q6H #28 capsule 01/12/19 Clindamycin HCl [Clindamycin 300MG 300 mg PO Q6H #28 capsule 01/23/19 CAP] Acetaminophen/Cod 300/30 [Tylenol 1 each PO Q4-6H PRN #10 tablet 02/16/19 #3] Cefdinir 300 mg PO BID #20 capsule 03/17/19 Albuterol Sulf [Ventolin Hfa 1 - 2 puffs INH Q4HR PRN #1 inhaler 03/31/19 Inhaler] Azithromycin [Zithromax] 0 mg PO DAILY #6 tablet 03/31/19 Meloxicam [Mobic] 15 mg PO DAILY PRN #20 tablet 04/22/19 Diphenoxylate/Atropine [Lomotil] 1 each PO QID PRN #10 tablet 05/08/19 Ondansetron Odt [Zofran] 4 mg TL Q6H PRN #10 tablet 05/08/19 - Allergies Allergies/Adverse Reactions: Allergies Allergy/AdvReac Type Severity Reaction Status Date / Time doxycycline Allergy Intermediate Rash Verified 04/22/19 16:23 Latex, Natural Rubber Allergy Mild Rash Verified 04/22/19 16:23 acetaminophen [From Vicodin] Allergy Hives Verified 04/22/19 16:23 cefdinir Allergy Unknown Verified 05/02/19 11:05 ciprofloxacin [From Cipro] Allergy Unknown Verified 04/22/19 16:23 hydrocodone bitartrate * Allergy Hives Verified 04/22/19 16:23 [From Vicodin] Penicillins Allergy Rash Verified 04/22/19 16:23 tramadol Allergy Rash Verified 04/22/19 16:23 varenicline [From Chantix] Allergy Unknown Verified 05/02/19 11:05 adhesive AdvReac Intermediate chemical Verified 04/22/19 16:23 logan haloperidol [From Haldol] AdvReac Unknown Hallucinati Verified 04/22/19 16:23 ons iodine AdvReac Unknown Rash Verified 04/22/19 16:23 latex AdvReac Unknown Respiratory Verified 04/22/19 16:23 lamotrigine [From Lamictal] AdvReac Rash Verified 04/22/19 16:23 varenicline tartrate * AdvReac Hallucinati Verified 04/22/19 16:23 [From Chantix] ons bee Allergy Unknown Uncoded 04/22/19 16:23 steriods AdvReac Intermediate Unknown Uncoded 04/22/19 16:23 - Social History Does the pt smoke?: Yes Smoking Status: Current every day smoker Does the pt drink ETOH?: Yes Does the pt have substance abuse?: Yes - Immunizations Immunizations are current?: No - POLST Patient has POLST: No POLST Status: Full Code PD ED PE NORMAL - Vitals Vital signs reviewed: Yes - General General: No acute distress, Other (obese female lying supine on stretcher, drowsy but awakens to verbal, quiet but acurate answers) - HEENT HEENT: Atraumatic, PERRL, EOMI, Pharynx benign (no tongue bite/echymosis), Other (tacky/pasty mucous membranes) - Neck Neck: Supple, no meningeal sign - Cardiac Cardiac: RRR, No murmur - Respiratory Respiratory: No respiratory distress, Clear bilaterally - Abdomen Abdomen: Soft, Non tender, Non distended - Derm Derm: Normal color, Warm and dry - Neuro Neuro: heel cementer 2-12 intact, No motor deficit, No sensory deficit, Normal speech (quiet and brief answers but appropriate, acurate) Eye Opening: To Voice Motor: Obeys Commands Verbal: Oriented GCS Score: 14 Results - Vitals Vitals: Vital Signs - 24 hr 05/08/19 05/08/19 05/08/19 20:21 21:15 21:22 Temperature 37.2 C Heart Rate 88 69 83 Respiratory 18 16 20 Rate Blood Pressure 123/82 H 119/82 H O2 Saturation 98 96 Oxygen O2 Source Room air PD MEDICAL DECISION MAKING - ED course Complexity details: reviewed old records, re-evaluated patient, considered differential, d/w patient ED course: On reevaluation after PO zofran and IM toradol, patient is awake, alert, sitting on edge of bed talking with spouse. She is in NAD although c/o ongoing neck pain, mild headache. she is drinking water without apparent distress or difficulty. Given one dose of 5mg oxycodone, 1mg ativan, and lomotil and discharged. She was smiling, polite, and in NAD on discharge Departure - Departure Disposition: 01 Home, Self Care Clinical Impression: Seizure disorder, Neck pain, Vomiting, Diarrhea Condition: Good Instructions: ED Neck Back Pain General, ED Vomiting Diarrhea Nonspecific Ad Follow-Up: Cassia Main PA [Primary Care Provider] - Prescriptions: Diphenoxylate/Atropine [Lomotil] 1 each PO QID PRN #10 tablet PRN Reason: Diarrhea Ondansetron Odt [Zofran] 4 mg TL Q6H PRN #10 tablet PRN Reason: Nausea / Vomiting Discharge Date/Time: 05/08/19 22:13
[2019-05-08] MEDS ORDERED: IPRATROPIUM/ALBUTEROL 3 ML NEB INH STA (21:09)
[2019-05-08 21:15] VITALS: BP 119/82
[2019-05-08] MEDS ORDERED: oxyCODONE 5 MG TABLET PO STA (21:58)
[2019-05-08] MEDS ORDERED: LORazepam 1 MG TABLET PO STA (21:58)
[2019-05-08] MEDS ORDERED: DIPHENOX/ATROPINE 2.5/0.025 MG TABLET PO STA (22:03)
== END 2019-05-08 22:13 | disposition home or self-care (01) ==
LOC: ED 20:16
DX: G40.909 Epilepsy, unspecified, not intractable, without status epilepticus (principal); R51 Headache; M54.2 Cervicalgia; R11.2 Nausea with vomiting, unspecified; R19.7 Diarrhea, unspecified; I10 Essential (primary) hypertension; E11.9 Type 2 diabetes mellitus without complications; J44.9 Chronic obstructive pulmonary disease, unspecified; F17.200 Nicotine dependence, unspecified, uncomplicated
CPT/HCPCS: 94640; 96372; 99283; 99284; A9270; J8499; Q0162

== ENCOUNTER 2019-05-10 16:20 | Emergency (ER) | payer MEDICARE, MEDICAID ==
[2019-05-10] MEDS ORDERED: KETOROLAC 60 MG/2 ML VIAL IM STA (17:47)
[2019-05-10] MEDS ORDERED: IPRATROPIUM/ALBUTEROL 3 ML NEB INH STA (17:47)
--- NOTE | 2019-05-10 17:54 | ED Physician Documentation ---
History of Present Illness - Stated complaint Stated Complaint: SOA - Chief complaint Chief Complaint: Resp - History obtained from History obtained from: Patient, Family - History of Present Illness Timing: How many days ago (2-3) Pain level max: 6 Pain level now: 5 - Additonal information Additional information: patient states cough, congestion for 3 days. headache today. using her nebulizer q 4hrs No fevers. Worse with walking, better with rest. 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: Ovarian cysts : Incontinence HEENT: None Psych: Bipolar disorder Musculoskeletal: Osteoarthritis, Osteoporosis Derm: Other drug resistant infections - Past Surgical History Past Surgical History: Yes General: Cholecystectomy /WIRE STITCHER OPERATOR: Tubal ligation, Other HEENT: Tonsil/Adenoidectomy, Other - Present Medications Home Medications: Ambulatory Orders Medication Instructions Recorded Confirmed Zonisamide [Zonegran] 200 mg PO BID 12/02/16 10/12/18 Metformin HCl 1,000 mg PO BIDWM 02/15/17 10/12/18 acetaZOLAMIDE [Acetazolamide ER] 1,000 mg PO BID 02/15/17 10/12/18 Atorvastatin Calcium 40 mg PO QPM 05/26/17 10/12/18 Albuterol Sulfate [Proventil Hfa 1 - 2 puffs IH Q4H PRN #1 11/26/17 10/12/18 Inhaler] hfa.aer.ad Meloxicam [Mobic] 15 mg PO DAILY PRN #20 tablet 08/19/18 10/12/18 Ciprofloxacin [Cipro] 250 mg PO Q12H #10 tablet 10/12/18 Methocarbamol 1 tab ORAL TID 10/12/18 10/12/18 Pantoprazole [Protonix] 1 tab ORAL DAILY 10/12/18 10/12/18 Promethazine [Phenergan] 25 mg PO Q6H PRN #10 tab 10/12/18 Oxycodone HCl/Acetaminophen 1 - 2 each PO Q6H PRN #14 tablet 11/13/18 [Percocet 5-325 mg Tablet] Doxycycline Hyclate 100 mg PO BID #14 capsule 12/23/18 Loratadine [Allergy Relief] 10 mg PO DAILY #10 tablet 12/25/18 Cephalexin [Keflex] 500 mg PO Q6H #28 capsule 01/12/19 Clindamycin HCl [Clindamycin 300MG 300 mg PO Q6H #28 capsule 01/23/19 CAP] Acetaminophen/Cod 300/30 [Tylenol 1 each PO Q4-6H PRN #10 tablet 02/16/19 #3] Cefdinir 300 mg PO BID #20 capsule 03/17/19 Albuterol Sulf [Ventolin Hfa 1 - 2 puffs INH Q4HR PRN #1 inhaler 03/31/19 Inhaler] Azithromycin [Zithromax] 0 mg PO DAILY #6 tablet 03/31/19 Meloxicam [Mobic] 15 mg PO DAILY PRN #20 tablet 04/22/19 Diphenoxylate/Atropine [Lomotil] 1 each PO QID PRN #10 tablet 05/08/19 Ondansetron Odt [Zofran] 4 mg TL Q6H PRN #10 tablet 05/08/19 - Allergies Allergies/Adverse Reactions: Allergies Allergy/AdvReac Type Severity Reaction Status Date / Time doxycycline Allergy Intermediate Rash Verified 04/22/19 16:23 Latex, Natural Rubber Allergy Mild Rash Verified 04/22/19 16:23 acetaminophen [From Vicodin] Allergy Hives Verified 04/22/19 16:23 cefdinir Allergy Unknown Verified 05/02/19 11:05 ciprofloxacin [From Cipro] Allergy Unknown Verified 04/22/19 16:23 hydrocodone bitartrate * Allergy Hives Verified 04/22/19 16:23 [From Vicodin] Penicillins Allergy Rash Verified 04/22/19 16:23 tramadol Allergy Rash Verified 04/22/19 16:23 varenicline [From Chantix] Allergy Unknown Verified 05/02/19 11:05 adhesive AdvReac Intermediate chemical Verified 04/22/19 16:23 logan haloperidol [From Haldol] AdvReac Unknown Hallucinati Verified 04/22/19 16:23 ons iodine AdvReac Unknown Rash Verified 04/22/19 16:23 latex AdvReac Unknown Respiratory Verified 04/22/19 16:23 lamotrigine [From Lamictal] AdvReac Rash Verified 04/22/19 16:23 varenicline tartrate * AdvReac Hallucinati Verified 04/22/19 16:23 [From Chantix] ons bee Allergy Unknown Uncoded 04/22/19 16:23 steriods AdvReac Intermediate Unknown Uncoded 04/22/19 16:23 - Social History Does the pt smoke?: Yes Smoking Status: Current every day smoker Does the pt drink ETOH?: Yes Does the pt have substance abuse?: Yes - Immunizations Immunizations are current?: No - POLST Patient has POLST: No POLST Status: Full Code PD ED PE NORMAL - Vitals Vital signs reviewed: Yes - General General: Alert and oriented X 3, No acute distress, Well developed/nourished - HEENT HEENT: PERRL, Ears normal, Moist mucous membranes, Pharynx benign - Neck Neck: Supple, no meningeal sign - Cardiac Cardiac: RRR - Respiratory Respiratory: No respiratory distress, Other (Wheezing bilaterally) - Abdomen Abdomen: Soft, Non tender, Non distended - Derm Derm: Warm and dry, No rash - Neuro Neuro: Alert and oriented X 3, 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, No motor deficit, No sensory deficit, Normal speech Eye Opening: Spontaneous Motor: Obeys Commands Verbal: Oriented GCS Score: 15 - Psych Psych: Normal mood, Normal affect Results - Vitals Vitals: Vital Signs - 24 hr 05/10/19 05/10/19 05/10/19 16:24 18:27 19:06 Temperature 36 C L 36.4 C L Heart Rate 85 65 64 Respiratory 18 14 18 Rate Blood Pressure 129/80 128/80 O2 Saturation 96 97 Oxygen O2 Source Room air - Rads (name of study) cxr Radiology: Prelim report reviewed, EMP read contemporaneously, See rad report (normal) PD MEDICAL DECISION MAKING - ED course Complexity details: reviewed results, re-evaluated patient, considered differential, d/w patient ED course: Patient feels better after nebulizer treatment and Toradol. She is comfortable going home at this time. No evidence of pneumonia. Patient counseled to stop smoking. Patient counseled regarding signs and symptoms for which I believe and urgent re-evaluation would be necessary. Patient with good understanding of and agreement to plan and is comfortable going home at this time This document was made in part using voice recognition software. While efforts are made to proofread this document, sound alike and grammatical errors may occur. Departure - Departure Disposition: Home, Self Care Clinical Impression: Viral URI URI (upper respiratory infection) Qualifiers: URI type: unspecified viral URI Qualified Code(s): J06.9 - Acute upper respiratory infection, unspecified Condition: Good Instructions: ED URI Viral Follow-Up: Cassia Main PA [Primary Care Provider] - Within 1 week Comments: Continue your medications at home. Return if you worsen. Follow-up with your doctor for further care. Discharge Date/Time: 05/10/19 19:07
--- NOTE | 2019-05-10 18:22 | XRAY Report ---
Reason: cough Procedure Date: 05/10/2019 Accession Number: [id number] / [id number] Procedure: XR - Chest 2 View X-Ray CPT Code: 75943 Final Report FULL RESULT: EXAM: CHEST RADIOGRAPHY EXAM DATE: 05/10/2019 06:05 PM. CLINICAL HISTORY: Cough. COMPARISON: CHEST 2 VIEW 03/31/2019 4:38 PM. TECHNIQUE: 2 views. FINDINGS: Lungs/Pleura: No focal opacities evident. No pleural effusion. No pneumothorax. Normal volumes. Mediastinum: Heart and mediastinal contours are unremarkable. Other: No acute findings compared with 03/31/2019 IMPRESSION: Normal 2-view chest radiography. RADIA
[2019-05-10 19:07] VITALS: BP 128/80
== END 2019-05-10 19:07 | disposition home or self-care (01) ==
LOC: ED 16:20
DX: J06.9 Acute upper respiratory infection, unspecified (principal); J44.9 Chronic obstructive pulmonary disease, unspecified; F17.200 Nicotine dependence, unspecified, uncomplicated; I10 Essential (primary) hypertension; E11.9 Type 2 diabetes mellitus without complications; Z79.84 Long term (current) use of oral hypoglycemic drugs
CPT/HCPCS: 71046; 94640; 96372; 99284

== ENCOUNTER 2019-05-15 14:05 | Outpatient (CLI) | payer MEDICARE, MEDICAID ==
[2019-05-15 15:06] LABS: BASOPHILS # (AUTO) 0.1 10^3/uL (0.0-0.1); BASOPHILS % (AUTO) 0.9 %; EOSINOPHILS # (AUTO) 0.2 10^3/uL (0.0-0.7); EOSINOPHILS % (AUTO) 2.3 %; HGB - HEMOGLOBIN 17.2 g/dL (12.0-16.0); LYMPHOCYTES # (AUTO) 2.9 10^3/uL (1.5-3.5); LYMPHOCYTES % (AUTO) 35.9 %; MEAN CORPUSCULAR HEMOGLOBIN 31.2 pg (27.0-31.0); MEAN CORPUSCULAR VOLUME 91.7 fL (81.0-99.0); MEAN PLATELET VOLUME 8.8 fL (7.9-10.8); MONOCYTES # (AUTO) 0.5 10^3/uL (0.0-1.0); MONOCYTES % (AUTO) 6.8 %; NEUTROPHILS # (AUTO) 4.3 10^3/uL (1.5-6.6); NEUTROPHILS % (AUTO) 53.8 %; PLT - PLATELET COUNT 257 10^3/uL (130-450); RED BLOOD COUNT 5.52 10^6/uL (4.20-5.40); RED CELL DISTRIBUTION WIDTH 12.2 % (12.0-15.0)
[2019-05-15 15:10] LABS: BILIRUBIN,URINE NEGATIVE (NEGATIVE); GLUCOSE, URINE (UA) NEGATIVE (NEGATIVE); KETONES,URINE (UA) NEGATIVE (NEGATIVE); LEUKOCYTE ESTERASE, URINE NEGATIVE (NEGATIVE); NITRITE,URINE NEGATIVE (NEGATIVE); OCCULT BLOOD,URINE NEGATIVE (NEGATIVE); PH,URINE 6.5 PH (5.0-7.5); PROTEIN,URINE NEGATIVE (NEGATIVE); UROBILINOGEN,URINE 0.2 (NORMAL) E.U./dL (NORMAL)
[2019-05-15 15:11] LABS: CLARITY,URINE CLEAR (CLEAR)
[2019-05-15 15:22] LABS: HB2 TOTAL 17.4 g/dL; HEMOGLOBIN A1C 1.15 g/dL; HEMOGLOBIN A1C % 8.2 % (4.6-6.2)
[2019-05-15 15:27] LABS: ALBUMIN 4.4 g/dL (3.2-5.5); ALBUMIN/GLOBULIN RATIO 1.4 (1.0-2.2); ALKALINE PHOSPHATASE 53 IU/L (42-121); ALT ALANINE AMINOTRANSFERASE 17 IU/L (10-60); AST ASPARTATE AMINOTRANSFERASE 11 IU/L (10-42); BILIRUBIN,TOTAL 0.7 mg/dL (0.2-1.0); BUN - BLOOD UREA NITROGEN 8 mg/dL (6-20); CALCIUM 9.4 mg/dL (8.5-10.3); CARBON DIOXIDE - CO2 25 mmol/L (21-32); CHLORIDE 102 mmol/L (101-111); CHOL/HDL RATIO 8.1 (<4.4); CHOLESTEROL 284 mg/dL; CREATININE 0.6 mg/dL (0.4-1.0); GFR - MDRD 112 (>89); GLUCOSE 169 mg/dL (70-100); HDL CHOLESTEROL 35 mg/dL; SODIUM 135 mmol/L (135-145); TOTAL PROTEIN 7.6 g/dL (6.7-8.2)
[2019-05-15 15:47] LABS: LDL CHOLESTEROL,DIRECT 175 mg/dL
== END 2019-05-15 14:06 | disposition home or self-care (01) ==
LOC: LAB 14:05
PROVIDERS: ATTEND Physician Assistant
DX: E11.9 Type 2 diabetes mellitus without complications (principal); R30.0 Dysuria; G47.33 Obstructive sleep apnea (adult) (pediatric); E55.9 Vitamin D deficiency, unspecified
CPT/HCPCS: 36415; 80053; 80061; 81001; 81003; 82306; 82607; 83036; 83721; 85025; 87086

== ENCOUNTER 2019-05-25 07:17 | Outpatient (CLI) | payer MEDICARE, MEDICAID | END 2019-05-25 07:18 | disposition critical access hospital (66) | LOC: EMS 07:17 | PROVIDERS: ATTEND Surgery | DX: R56.9 Unspecified convulsions (principal); R11.2 Nausea with vomiting, unspecified; N89.9 Noninflammatory disorder of vagina, unspecified | CPT/HCPCS: A0425; A0427 ==

== ENCOUNTER 2019-05-25 07:23 | Emergency (ER) | payer MEDICARE, MEDICAID ==
[2019-05-25] MEDS ORDERED: KETOROLAC 30 MG/ML VIAL IM STA (07:55)
[2019-05-25] MEDS ORDERED: PROMETHAZINE 25 MG/1 ML VIAL IM STA (07:55)
[2019-05-25] MEDS ORDERED: SULFAMETH/TRIMETH DS 800/160 MG TABLET PO STA (07:55)
[2019-05-25] MEDS ORDERED: MAG HYDROX/AL HYDROX/SIMETH 30 ML UDC PO STA (07:56)
[2019-05-25] MEDS ORDERED: LIDOCAINE VISCOUS 2% 15 ML UDC MM STA (07:56)
[2019-05-25 08:45] LABS: BASOPHILS # (AUTO) 0.1 10^3/uL (0.0-0.1); BASOPHILS % (AUTO) 0.8 %; EOSINOPHILS # (AUTO) 0.2 10^3/uL (0.0-0.7); EOSINOPHILS % (AUTO) 1.8 %; HGB - HEMOGLOBIN 15.6 g/dL (12.0-16.0); LYMPHOCYTES # (AUTO) 2.5 10^3/uL (1.5-3.5); LYMPHOCYTES % (AUTO) 26.7 %; MEAN CORPUSCULAR HEMOGLOBIN 31.3 pg (27.0-31.0); MEAN CORPUSCULAR HGB CONC 34.6 g/dL (32.0-36.0); MEAN CORPUSCULAR VOLUME 90.4 fL (81.0-99.0); MEAN PLATELET VOLUME 8.8 fL (7.9-10.8); MONOCYTES # (AUTO) 0.7 10^3/uL (0.0-1.0); MONOCYTES % (AUTO) 7.6 %; NEUTROPHILS % (AUTO) 62.8 %; PLT - PLATELET COUNT 249 10^3/uL (130-450); RED BLOOD COUNT 4.99 10^6/uL (4.20-5.40); RED CELL DISTRIBUTION WIDTH 12.2 % (12.0-15.0); WHITE BLOOD COUNT 9.5 x10^3/uL (4.8-10.8)
[2019-05-25 08:59] LABS: ALBUMIN 4.2 g/dL (3.2-5.5); ALBUMIN/GLOBULIN RATIO 1.4 (1.0-2.2); BILIRUBIN,TOTAL 0.8 mg/dL (0.2-1.0); CALCIUM 9.1 mg/dL (8.5-10.3); CREATININE 0.6 mg/dL (0.4-1.0); TOTAL PROTEIN 7.1 g/dL (6.7-8.2)
--- NOTE | 2019-05-25 09:35 | ED Physician Documentation ---
PD HPI NVD - Stated complaint Stated Complaint: VOMITING - Chief complaint Chief Complaint: Neuro - History obtained from History obtained from: Patient - History of Present Illness Timing - onset: Today (she is complaining of nausea with vomiting since last night, and had 2 seizures at home this morning. Feeling feverish, and is having right inner thigh abscess that started draining last night as well.) Timing - duration: Hours Timing - details: Gradual onset, Still present Associated symptoms: Fever (subjective). No: Loss of appetite Contributing factors: No: Sick contact, Bad food Improved by: No: Vomiting Worsened by: Eating Similar symptoms before: Diagnosis (history of seizure disorder and has been taking meds regularly. history of prior abscesses.) Review of Systems Constitutional: reports: Fever, Chills Nose: denies: Rhinorrhea / runny nose, Congestion Throat: denies: Sore throat Cardiac: denies: Chest pain / pressure, Palpitations Respiratory: denies: Cough GI: reports: Nausea, Vomiting. denies: Abdominal Pain, Diarrhea Musculoskeletal: denies: Back pain Neurologic: reports: Generalized weakness. 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: Ovarian cysts : Incontinence HEENT: None Psych: Bipolar disorder Musculoskeletal: Osteoarthritis, Osteoporosis Derm: Other drug resistant infections - Past Surgical History Past Surgical History: Yes General: Cholecystectomy /AUDIO VISUAL DIRECTOR: Tubal ligation, Other HEENT: Tonsil/Adenoidectomy, Other - Present Medications Home Medications: Ambulatory Orders Medication Instructions Recorded Confirmed Zonisamide [Zonegran] 200 mg PO BID 12/02/16 10/12/18 Metformin HCl 1,000 mg PO BIDWM 02/15/17 10/12/18 acetaZOLAMIDE [Acetazolamide ER] 1,000 mg PO BID 02/15/17 10/12/18 Atorvastatin Calcium 40 mg PO QPM 05/26/17 10/12/18 Albuterol Sulfate [Proventil Hfa 1 - 2 puffs IH Q4H PRN #1 11/26/17 10/12/18 Inhaler] hfa.aer.ad Meloxicam [Mobic] 15 mg PO DAILY PRN #20 tablet 08/19/18 10/12/18 Ciprofloxacin [Cipro] 250 mg PO Q12H #10 tablet 10/12/18 Methocarbamol 1 tab ORAL TID 10/12/18 10/12/18 Pantoprazole [Protonix] 1 tab ORAL DAILY 10/12/18 10/12/18 Promethazine [Phenergan] 25 mg PO Q6H PRN #10 tab 10/12/18 Oxycodone HCl/Acetaminophen 1 - 2 each PO Q6H PRN #14 tablet 11/13/18 [Percocet 5-325 mg Tablet] Doxycycline Hyclate 100 mg PO BID #14 capsule 12/23/18 Loratadine [Allergy Relief] 10 mg PO DAILY #10 tablet 12/25/18 Cephalexin [Keflex] 500 mg PO Q6H #28 capsule 01/12/19 Clindamycin HCl [Clindamycin 300MG 300 mg PO Q6H #28 capsule 01/23/19 CAP] Acetaminophen/Cod 300/30 [Tylenol 1 each PO Q4-6H PRN #10 tablet 02/16/19 #3] Cefdinir 300 mg PO BID #20 capsule 03/17/19 Albuterol Sulf [Ventolin Hfa 1 - 2 puffs INH Q4HR PRN #1 inhaler 03/31/19 Inhaler] Azithromycin [Zithromax] 0 mg PO DAILY #6 tablet 03/31/19 Meloxicam [Mobic] 15 mg PO DAILY PRN #20 tablet 04/22/19 Diphenoxylate/Atropine [Lomotil] 1 each PO QID PRN #10 tablet 05/08/19 Ondansetron Odt [Zofran] 4 mg TL Q6H PRN #10 tablet 05/08/19 Ondansetron Odt [Zofran] 4 mg TL Q6H PRN #15 tablet 05/25/19 Promethazine [Phenergan] 25 mg PO Q6H PRN #20 tab 05/25/19 Sulfamethox/Trimeth 800/160 1 each PO BID #14 tablet 05/25/19 [Bactrim Ds 800/160] - Allergies Allergies/Adverse Reactions: Allergies Allergy/AdvReac Type Severity Reaction Status Date / Time doxycycline Allergy Intermediate Rash Verified 05/25/19 07:28 Latex, Natural Rubber Allergy Mild Rash Verified 05/25/19 07:28 acetaminophen [From Vicodin] Allergy Hives Verified 05/25/19 07:28 cefdinir Allergy Unknown Verified 05/25/19 07:28 ciprofloxacin [From Cipro] Allergy Unknown Verified 05/25/19 07:28 hydrocodone bitartrate * Allergy Hives Verified 05/25/19 07:28 [From Vicodin] Penicillins Allergy Rash Verified 05/25/19 07:28 tramadol Allergy Rash Verified 05/25/19 07:28 varenicline [From Chantix] Allergy Unknown Verified 05/25/19 07:28 adhesive AdvReac Intermediate chemical Verified 05/25/19 07:28 logan haloperidol [From Haldol] AdvReac Unknown Hallucinati Verified 05/25/19 07:28 ons iodine AdvReac Unknown Rash Verified 05/25/19 07:28 latex AdvReac Unknown Respiratory Verified 05/25/19 07:28 lamotrigine [From Lamictal] AdvReac Rash Verified 05/25/19 07:28 varenicline tartrate * AdvReac Hallucinati Verified 05/25/19 07:28 [From Chantix] ons bee Allergy Unknown Uncoded 05/25/19 07:28 steriods AdvReac Intermediate Unknown Uncoded 05/25/19 07:28 - Social History Does the pt smoke?: Yes Smoking Status: Current every day smoker Does the pt drink ETOH?: Yes Does the pt have substance abuse?: Yes - Immunizations Immunizations are current?: No - POLST Patient has POLST: No POLST Status: Full Code PD ED PE NORMAL - Vitals Vital signs reviewed: Yes - General General: Alert and oriented X 3, No acute distress, Well developed/nourished - Neck Neck: Supple, no meningeal sign, No adenopathy - Cardiac Cardiac: RRR, No murmur - Respiratory Respiratory: Clear bilaterally - Abdomen Abdomen: Soft, Non tender - Derm Derm: Normal color, Warm and dry - Extremities Extremities: Other (right medial upper thigh with rounded area of redness, with small 1/2 cm central hole with some purulence draining. No fluctuance felt in the area. ) Results - Vitals Vitals: Vital Signs - 24 hr 05/25/19 05/25/19 05/25/19 07:24 08:52 09:51 Temperature 37.0 C Heart Rate 76 63 68 Respiratory 20 18 16 Rate Blood Pressure 118/79 118/78 102/67 O2 Saturation 96 95 95 Oxygen O2 Source Room air - Labs Labs: Laboratory Tests 05/25/19 05/25/19 08:38 08:38 WBC 9.5 RBC 4.99 Hgb 15.6 Hct 45.1 MCV 90.4 MCH 31.3 H MCHC 34.6 RDW 12.2 Plt Count 249 MPV 8.8 Neut # (Auto) 6.0 Lymph # (Auto) 2.5 Vernon # (Auto) 0.7 Eos # (Auto) 0.2 Baso # (Auto) 0.1 Absolute Nucleated RBC 0.00 Nucleated RBC % 0.0 Sodium 137 Potassium 3.6 Chloride 100 L Carbon Dioxide 29 Anion Gap 8.0 BUN 8 Creatinine 0.6 Estimated GFR (MDRD) 112 Glucose 202 H Calcium 9.1 Total Bilirubin 0.8 AST 11 ALT 15 Alkaline Phosphatase 53 Total Protein 7.1 Albumin 4.2 Globulin 2.9 Albumin/Globulin Ratio 1.4 Lipase 35 PD MEDICAL DECISION MAKING - ED course Complexity details: re-evaluated patient (feeling better with antiemetic. The abscess was already draining and did not need further incision. ), considered differential, d/w patient Departure - Departure Disposition: 01 Home, Self Care Clinical Impression: Seizure, Seizure disorder Nausea and vomiting Qualifiers: Vomiting type: unspecified Vomiting Intractability: non-intractable Qualified Code(s): R11.2 - Nausea with vomiting, unspecified Skin abscess Qualifiers: Site of cutaneous abscess: extremity Site of cutaneous abscess of extremity: lower extremity Laterality: right Qualified Code(s): L02.415 - Cutaneous abscess of right lower limb Condition: Stable Record reviewed to determine appropriate education?: Yes Instructions: ED Staph Infec Abx Tx Only, ED Nausea Vomiting Follow-Up: Cassia Main PA [Primary Care Provider] - Prescriptions: Ondansetron Odt [Zofran] 4 mg TL Q6H PRN #15 tablet PRN Reason: Nausea / Vomiting Promethazine [Phenergan] 25 mg PO Q6H PRN #20 tab PRN Reason: Nausea / Vomiting Sulfamethox/Trimeth 800/160 [Bactrim Ds 800/160] 1 each PO BID #14 tablet Comments: Stay well-hydrated. Zofran or Phenergan if needed for nausea and vomiting. Bactrim antibiotic twice daily for a week. Warm moist towels to the abscess area to promote continued drainage. Recheck if not improving well over the next few days. Continue usual medicines. Discharge Date/Time: 05/25/19 09:45
[2019-05-25 09:53] VITALS: BP 102/67
== END 2019-05-25 09:45 | disposition home or self-care (01) ==
LOC: EDUNIT# → ED 07:23
DX: G40.909 Epilepsy, unspecified, not intractable, without status epilepticus (principal); R11.2 Nausea with vomiting, unspecified; L02.415 Cutaneous abscess of right lower limb; I10 Essential (primary) hypertension; E11.9 Type 2 diabetes mellitus without complications; Z79.84 Long term (current) use of oral hypoglycemic drugs; F17.200 Nicotine dependence, unspecified, uncomplicated
CPT/HCPCS: 36415; 80053; 83690; 85025; 96372; 99283; 99284; A9270

== ENCOUNTER 2019-06-10 13:59 | Outpatient (CLI) | payer MEDICARE, MEDICAID ==
--- NOTE | 2019-06-12 00:26 | XRAY Report ---
Reason: COUGH Procedure Date: 06/10/2019 Accession Number: [id number] / [id number] Procedure: WCP - Chest 2 View X-Ray CPT Code: 93371 Final Report FULL RESULT: EXAM: CHEST RADIOGRAPHY EXAM DATE: 06/10/2019 01:59 PM. CLINICAL HISTORY: COUGH. COMPARISON: CHEST 2 VIEW 05/10/2019 5:53 PM. TECHNIQUE: 2 views. FINDINGS: Lungs/Pleura: No alveolar consolidation or pleural effusion seen. No pneumothorax. Mediastinum: Heart and mediastinal contours are unremarkable. Other: None. IMPRESSION: 1. No acute abnormality seen in the chest. RAD[facility]
== END 2019-06-10 23:59 | disposition home or self-care (01) ==
LOC: DI.WCP 13:59
PROVIDERS: ATTEND Family Medicine
DX: R05 Cough (principal)
CPT/HCPCS: 71046

== ENCOUNTER 2019-06-24 15:10 | Outpatient (CLI) | payer MEDICARE, MEDICAID ==
--- NOTE | 2019-06-24 15:53 | XRAY Report ---
Reason: LEFT FOOT PAIN Procedure Date: 06/24/2019 Accession Number: [id number] / [id number] Procedure: WCP - Foot 3 View LT CPT Code: Final Report FULL RESULT: EXAM: LEFT FOOT RADIOGRAPHY EXAM DATE: 06/24/2019 03:10 PM. CLINICAL HISTORY: Left foot pain. COMPARISON: FOOT 3 VIEW LT 02/10/2018 11:06 AM. TECHNIQUE: 3 views. FINDINGS: Bones: Normal. No fractures or bone lesions. Joints: Dorsal midfoot degenerative joint disease with small dorsal osteophytes and some subarticular sclerosis. No erosions. Soft Tissues: Mild swelling. IMPRESSION: 1. Mild midfoot degenerative joint disease. No fracture. RAD[facility]
--- NOTE | 2019-06-24 15:53 | XRAY Report ---
Reason: LEFT KNEE PAIN Procedure Date: 06/24/2019 Accession Number: [id number] / [id number] Procedure: WCP - Knee 3 View LT CPT Code: Final Report FULL RESULT: EXAM: LEFT KNEE RADIOGRAPHY EXAM DATE: 06/24/2019 03:10 PM. CLINICAL HISTORY: Left knee pain. COMPARISON: KNEE 2 VIEW LT 03/01/2019 2:09 PM. TECHNIQUE: 3 views. FINDINGS: Bones: Normal. No fractures or bone lesions. Joints: Mild degenerative joint disease with small osteophytes in all 3 compartments. Minimal joint space narrowing. Soft Tissues: Normal. No soft tissue swelling. IMPRESSION: 1. Mild 3 compartment degenerative joint disease of the left knee, Kellgren Stephen grade 1-2. No change since prior. RADIA
== END 2019-06-24 23:59 | disposition home or self-care (01) ==
LOC: DI.WCP 15:10
PROVIDERS: ATTEND Family Medicine
DX: M17.12 Unilateral primary osteoarthritis, left knee (principal); M19.072 Primary osteoarthritis, left ankle and foot

== ENCOUNTER 2019-07-13 12:12 | Outpatient (CLI) | payer MEDICARE, MEDICAID ==
[2019-07-13 12:46] LABS: BASOPHILS # (AUTO) 0.1 10^3/uL (0.0-0.1); EOSINOPHILS # (AUTO) 0.2 10^3/uL (0.0-0.7); EOSINOPHILS % (AUTO) 2.5 %; HGB - HEMOGLOBIN 16.5 g/dL (12.0-16.0); LYMPHOCYTES # (AUTO) 2.9 10^3/uL (1.5-3.5); LYMPHOCYTES % (AUTO) 34.5 %; MEAN CORPUSCULAR HEMOGLOBIN 31.6 pg (27.0-31.0); MEAN CORPUSCULAR HGB CONC 34.9 g/dL (32.0-36.0); MEAN CORPUSCULAR VOLUME 90.6 fL (81.0-99.0); MONOCYTES # (AUTO) 0.5 10^3/uL (0.0-1.0); NEUTROPHILS # (AUTO) 4.7 10^3/uL (1.5-6.6); NEUTROPHILS % (AUTO) 55.8 %; PLT - PLATELET COUNT 239 10^3/uL (130-450); RED BLOOD COUNT 5.22 10^6/uL (4.20-5.40); RED CELL DISTRIBUTION WIDTH 12.4 % (12.0-15.0); WHITE BLOOD COUNT 8.4 x10^3/uL (4.8-10.8)
[2019-07-13 13:05] LABS: HB2 TOTAL 16.9 g/dL; HEMOGLOBIN A1C 1.26 g/dL
[2019-07-13 13:07] LABS: ALBUMIN 4.1 g/dL (3.2-5.5); ALBUMIN/GLOBULIN RATIO 1.3 (1.0-2.2); ALKALINE PHOSPHATASE 57 IU/L (42-121); ALT ALANINE AMINOTRANSFERASE 19 IU/L (10-60); AST ASPARTATE AMINOTRANSFERASE 12 IU/L (10-42); BILIRUBIN,TOTAL 0.7 mg/dL (0.2-1.0); BUN - BLOOD UREA NITROGEN 11 mg/dL (6-20); CALCIUM 9.3 mg/dL (8.5-10.3); CARBON DIOXIDE - CO2 25 mmol/L (21-32); CHLORIDE 100 mmol/L (101-111); CHOL/HDL RATIO 6.6 (<4.4); CHOLESTEROL 226 mg/dL; CREATININE 0.6 mg/dL (0.4-1.0); GFR - MDRD 112 (>89); GLUCOSE 233 mg/dL (70-100); HDL CHOLESTEROL 34 mg/dL; LDL CHOLESTEROL,CALCULATED 123 mg/dL; LDL/HDL RATIO 3.6 (<4.4); SODIUM 135 mmol/L (135-145); TOTAL PROTEIN 7.2 g/dL (6.7-8.2); VLDL CHOLESTEROL 69 mg/dL
== END 2019-07-13 12:13 | disposition home or self-care (01) ==
LOC: LAB 12:12
PROVIDERS: ATTEND Physician Assistant
DX: E11.9 Type 2 diabetes mellitus without complications (principal); E78.5 Hyperlipidemia, unspecified
CPT/HCPCS: 36415; 80053; 80061; 83036; 83721; 85025

== ENCOUNTER 2019-08-03 11:09 | Emergency (ER) | payer MEDICARE, MEDICAID ==
[2019-08-03 11:24] VITALS: BP 133/77
--- NOTE | 2019-08-03 12:02 | XRAY Report ---
Reason: Worsening soa, recenlty diagnosed with pnuemonia. Procedure Date: 08/03/2019 Accession Number: [id number] / [id number] Procedure: XR - Chest 2 View X-Ray CPT Code: 72894 Final Report FULL RESULT: EXAM: CHEST RADIOGRAPHY EXAM DATE: 08/03/2019 11:29 AM. CLINICAL HISTORY: Worsening shortness of breath, recently diagnosed with pneumonia. COMPARISON: CHEST 2 VIEW 07/28/2019 9:52 AM. TECHNIQUE: 2 views. FINDINGS: Lungs/Pleura: Mild bronchial cuffing, stable. No infiltrate or effusion. Mediastinum: Heart and mediastinal contours are unremarkable. Other: None. IMPRESSION: 1. Mild bronchial cuffing, bronchiolitis versus reactive airways disease. No infiltrate. RADIA
[2019-08-03] MEDS ORDERED: IPRATROPIUM/ALBUTEROL 3 ML NEB INH STA (13:10)
[2019-08-03] MEDS ORDERED: ALBUTEROL NEB 2.5 MG/3 ML INH STA (13:10)
--- NOTE | 2019-08-03 13:13 | ED Physician Documentation ---
History of Present Illness - Stated complaint Stated Complaint: SOA - Chief complaint Chief Complaint: Resp - History obtained from History obtained from: Patient - Additonal information Additional information: Patient comes emergency department complaining of ongoing cough and shortness of breath since being diagnosed with pneumonia 5 or 6 days ago. She states that she was seen here in the emergency department and that as far she knows, she was not tested for influenza but that a chest x-ray did show definite pneumonia. She was started on antibiotics, which she has finished, but states that her symptoms do not seem to be any better. She denies measuring her temperature but states she feels as though she has been running fevers. She denies sore throat or runny nose. She has some chest and abdominal pain which are worse with coughing and she believes this is because of the cough. She also states her back is sore from coughing. She is not bringing up any distinct sputum. She has a history of asthma and is a smoker. She is currently living at a group home, she states, and was told to come to the emergency department to be checked for "anything else" that might be causing her cough. Patient has not had any known sick contacts. She states she is otherwise healthy. No other complaints at this time. Review of Systems Ten Systems: 10 systems reviewed and negative Constitutional: reports: Fever Eyes: reports: Reviewed and negative Ears: reports: Reviewed and negative Nose: reports: Reviewed and negative Throat: reports: Reviewed and negative Cardiac: reports: Reviewed and negative Respiratory: reports: Dyspnea, Cough, Wheezing GI: reports: Reviewed and negative : reports: Reviewed and negative Skin: reports: Reviewed and negative Musculoskeletal: reports: Reviewed and negative Neurologic: reports: Reviewed and negative Psychiatric: reports: Reviewed and negative Endocrine: reports: Reviewed and negative Immunocompromised: reports: Reviewed and negative PD PAST MEDICAL HISTORY - Past Medical History Past Medical History: Yes Cardiovascular: Hypertension Respiratory: Asthma, COPD Neuro: Seizure disorder Endocrine/Autoimmune: Type 2 diabetes GI: GERD STEWARD/STEWARDESS BANQUET: Ovarian cysts : Incontinence HEENT: None Psych: Bipolar disorder Musculoskeletal: Osteoarthritis, Osteoporosis Derm: Other drug resistant infections - Past Surgical History Past Surgical History: Yes General: Cholecystectomy /STEWARD/STEWARDESS BANQUET: Tubal ligation, Other HEENT: Tonsil/Adenoidectomy, Other - Present Medications Home Medications: Ambulatory Orders Medication Instructions Recorded Confirmed Zonisamide [Zonegran] 200 mg PO BID 12/02/16 10/12/18 Metformin HCl 1,000 mg PO BIDWM 02/15/17 10/12/18 acetaZOLAMIDE [Acetazolamide ER] 1,000 mg PO BID 02/15/17 10/12/18 Atorvastatin Calcium 40 mg PO QPM 05/26/17 10/12/18 Albuterol Sulfate [Proventil Hfa 1 - 2 puffs IH Q4H PRN #1 11/26/17 10/12/18 Inhaler] hfa.aer.ad Meloxicam [Mobic] 15 mg PO DAILY PRN #20 tablet 08/19/18 10/12/18 Ciprofloxacin [Cipro] 250 mg PO Q12H #10 tablet 10/12/18 Pantoprazole [Protonix] 1 tab ORAL DAILY 10/12/18 10/12/18 Promethazine [Phenergan] 25 mg PO Q6H PRN #10 tab 10/12/18 methocarbamoL [Methocarbamol] 1 tab ORAL TID 10/12/18 10/12/18 Oxycodone HCl/Acetaminophen 1 - 2 each PO Q6H PRN #14 tablet 11/13/18 [Percocet 5-325 mg Tablet] Doxycycline Hyclate 100 mg PO BID #14 capsule 12/23/18 Loratadine [Allergy Relief] 10 mg PO DAILY #10 tablet 12/25/18 Cephalexin [Keflex] 500 mg PO Q6H #28 capsule 01/12/19 Clindamycin HCl [Clindamycin 300MG 300 mg PO Q6H #28 capsule 01/23/19 CAP] Acetaminophen/Cod 300/30 [Tylenol 1 each PO Q4-6H PRN #10 tablet 02/16/19 #3] Cefdinir 300 mg PO BID #20 capsule 03/17/19 Albuterol Sulf [Ventolin Hfa 1 - 2 puffs INH Q4HR PRN #1 inhaler 03/31/19 Inhaler] Azithromycin [Zithromax] 0 mg PO DAILY #6 tablet 03/31/19 Meloxicam [Mobic] 15 mg PO DAILY PRN #20 tablet 04/22/19 Diphenoxylate/Atropine [Lomotil] 1 each PO QID PRN #10 tablet 05/08/19 Ondansetron Odt [Zofran] 4 mg TL Q6H PRN #10 tablet 05/08/19 Ondansetron Odt [Zofran] 4 mg TL Q6H PRN #15 tablet 05/25/19 Promethazine [Phenergan] 25 mg PO Q6H PRN #20 tab 05/25/19 Sulfamethox/Trimeth 800/160 1 each PO BID #14 tablet 05/25/19 [Bactrim Ds 800/160] Albuterol Sulf [Ventolin Hfa 1 - 2 puffs INH Q4HR PRN #1 inhaler 07/28/19 Inhaler] Azithromycin [Zithromax] 250 mg PO DAILY #4 tablet 07/28/19 - Allergies Allergies/Adverse Reactions: Allergies Allergy/AdvReac Type Severity Reaction Status Date / Time doxycycline Allergy Intermediate Rash Verified 08/03/19 11:23 Latex, Natural Rubber Allergy Mild Rash Verified 08/03/19 11:23 acetaminophen [From Vicodin] Allergy Hives Verified 08/03/19 11:23 cefdinir Allergy Unknown Verified 08/03/19 11:23 ciprofloxacin [From Cipro] Allergy Unknown Verified 08/03/19 11:23 hydrocodone bitartrate * Allergy Hives Verified 08/03/19 11:23 [From Vicodin] Penicillins Allergy Rash Verified 08/03/19 11:23 tramadol Allergy Rash Verified 08/03/19 11:23 varenicline [From Chantix] Allergy Unknown Verified 08/03/19 11:23 adhesive AdvReac Intermediate chemical Verified 08/03/19 11:23 logan haloperidol [From Haldol] AdvReac Unknown Hallucinati Verified 08/03/19 11:23 ons iodine AdvReac Unknown Rash Verified 08/03/19 11:23 latex AdvReac Unknown Respiratory Verified 08/03/19 11:23 lamotrigine [From Lamictal] AdvReac Rash Verified 08/03/19 11:23 varenicline tartrate * AdvReac Hallucinati Verified 08/03/19 11:23 [From Chantix] ons bee Allergy Unknown Uncoded 08/03/19 11:23 steriods AdvReac Intermediate Unknown Uncoded 08/03/19 11:23 - Social History Does the pt smoke?: Yes Smoking Status: Current every day smoker Does the pt drink ETOH?: Yes Does the pt have substance abuse?: Yes - Immunizations Immunizations are current?: No - POLST Patient has POLST: No POLST Status: Full Code PD ED PE NORMAL - Vitals Vital signs reviewed: Yes - General General: Alert and oriented X 3, No acute distress - HEENT HEENT: Atraumatic, PERRL, EOMI - Neck Neck: Supple, no meningeal sign - Cardiac Cardiac: RRR, No murmur - Respiratory Respiratory: No respiratory distress, Other (Patient has fits of dry cough. She has moderate expiratory wheezes and rhonchi throughout her entire lung estrada bilaterally. 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, No motor deficit, No sensory deficit - Psych Psych: Normal mood, Normal affect Results - Vitals Vitals: Vital Signs - 24 hr 08/03/19 08/03/19 08/03/19 11:21 13:22 13:52 Temperature 36.9 C Heart Rate 106 H 101 H 110 H Respiratory 18 18 22 Rate Blood Pressure 133/77 H O2 Saturation 94 94 Oxygen O2 Source Room air - Labs Labs: Laboratory Tests 08/03/19 14:34 Influenza A (Rapid) Negative Influenza B (Rapid) Negative - Rads (name of study) Chest x-ray Radiology: Final report received, EMP read indepedently, See rad report PD MEDICAL DECISION MAKING - ED course Complexity details: reviewed results, re-evaluated patient, considered differential, d/w patient ED course: Patient was worked up with chest x-ray and influenza testing. She was treated with a DuoNeb and an albuterol neb, but stated she could not take prednisone or any other steroids. She did report feeling better after the treatments. Patient's influenza test was negative and her x-ray did not show any new findings. I was going to discuss this with the patient, however, it was found the patient had eloped from the emergency department. Departure - Departure Disposition: 07 Against Medical Advice Discharge Date/Time: 08/03/19 16:05
== END 2019-08-03 16:05 | disposition left against medical advice (07) ==
LOC: ED 11:09
DX: J45.901 Unspecified asthma with (acute) exacerbation (principal); J06.9 Acute upper respiratory infection, unspecified; I10 Essential (primary) hypertension; E11.9 Type 2 diabetes mellitus without complications; F17.210 Nicotine dependence, cigarettes, uncomplicated; Z79.84 Long term (current) use of oral hypoglycemic drugs; Z59.0 Homelessness; Z53.20 Procedure and treatment not carried out because of patient's decision for unspecified reasons
CPT/HCPCS: 71046; 87275; 87276; 94640; 99283; 99284

== ENCOUNTER 2019-08-09 13:23 | Outpatient (CLI) | payer MEDICARE, MEDICAID ==
[2019-08-09 13:49] LABS: BASOPHILS # (AUTO) 0.1 10^3/uL (0.0-0.1); BASOPHILS % (AUTO) 0.8 %; EOSINOPHILS # (AUTO) 0.2 10^3/uL (0.0-0.7); EOSINOPHILS % (AUTO) 1.7 %; HGB - HEMOGLOBIN 17.3 g/dL (12.0-16.0); LYMPHOCYTES # (AUTO) 2.7 10^3/uL (1.5-3.5); LYMPHOCYTES % (AUTO) 27.4 %; MEAN CORPUSCULAR HEMOGLOBIN 31.3 pg (27.0-31.0); MEAN CORPUSCULAR HGB CONC 34.6 g/dL (32.0-36.0); MEAN CORPUSCULAR VOLUME 90.4 fL (81.0-99.0); MEAN PLATELET VOLUME 9.1 fL (7.9-10.8); MONOCYTES # (AUTO) 0.6 10^3/uL (0.0-1.0); MONOCYTES % (AUTO) 6.3 %; NEUTROPHILS # (AUTO) 6.1 10^3/uL (1.5-6.6); NEUTROPHILS % (AUTO) 63.4 %; PLT - PLATELET COUNT 272 10^3/uL (130-450); RED BLOOD COUNT 5.53 10^6/uL (4.20-5.40); RED CELL DISTRIBUTION WIDTH 12.9 % (12.0-15.0); WHITE BLOOD COUNT 9.7 x10^3/uL (4.8-10.8)
[2019-08-09 13:58] LABS: ALBUMIN 4.3 g/dL (3.2-5.5); ALBUMIN/GLOBULIN RATIO 1.3 (1.0-2.2); BILIRUBIN,TOTAL 0.3 mg/dL (0.2-1.0); CALCIUM 9.2 mg/dL (8.5-10.3); CREATININE 0.5 mg/dL (0.4-1.0); TOTAL PROTEIN 7.7 g/dL (6.7-8.2)
== END 2019-08-09 13:24 | disposition home or self-care (01) ==
LOC: LAB 13:23
PROVIDERS: ATTEND Physician Assistant
DX: E11.9 Type 2 diabetes mellitus without complications (principal); J45.41 Moderate persistent asthma with (acute) exacerbation
CPT/HCPCS: 36415; 80053; 80198; 81599; 85025

== ENCOUNTER 2019-08-31 15:07 | Outpatient (CLI) | payer MEDICARE, MEDICAID | END 2019-08-31 15:08 | disposition home or self-care (01) | LOC: COV 15:07 | PROVIDERS: ATTEND Family Medicine | DX: R05 Cough (principal); R50.9 Fever, unspecified | CPT/HCPCS: 81599 ==

== ENCOUNTER 2019-10-04 09:31 | Emergency (ER) | payer MEDICARE, MEDICAID ==
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
[2019-10-04] MEDS: KETOROLAC 30 MG/ML VIAL IVP STA (12:12)
[2019-10-04 12:23] LABS: RAPID STREP SCREEN Negative (Negative)
[2019-10-04] MEDS ORDERED: IOVERSOL 320 100 ML VIAL IVP ONE (13:00)
[2019-10-04] MEDS: IOVERSOL 320 100 ML VIAL IVP ONE (13:19)
--- NOTE | 2019-10-04 13:56 | CT Report ---
Reason: pain to anterior neck after seizure Procedure Date: 10/04/2019 Accession Number: [id number] / [id number] Procedure: CT - SOFT TISSUE NECK W CPT Code: Final Report FULL RESULT: EXAM: CT SOFT TISSUE NECK WITH CONTRAST. EXAM DATE: 10/04/2019 01:17 PM. HISTORY: Pain to anterior neck after seizure. COMPARISONS: None. TECHNIQUE: Routine soft tissue neck CT protocol with contrast. Reconstructions: Coronal and sagittal. IV contrast: OPTIRAY 320. In accordance with CT protocol optimization, one or more of the following dose reduction techniques were utilized for this exam: automated exposure control, adjustment of mA and/or KV based on patient size, or use of iterative reconstructive technique. FINDINGS: Visualized Intracranial Contents: Unremarkable. Orbits: Symmetric and unremarkable. Sinuses: Visualized paranasal sinuses and mastoid air cells are clear. Oral cavity: The visualized oral cavity is unremarkable. The floor of the mouth is symmetric. Pharynx: Pharyngeal mucosa is unremarkable. The infratemporal fossa, parapharyngeal spaces, and retropharyngeal space are unremarkable. The base of the tongue is symmetric and unremarkable. The airway is patent. Larynx: Larynx and supraglottic airway are patent without mass lesion. Vocal cords are symmetric. The visualized trachea is unremarkable. Parotid and Submandibular Glands: Symmetric and unremarkable. Lymph Nodes: No enlarged lymph nodes are identified in the cervical, supraclavicular, and visualized superior mediastinal regions. Soft tissues: Soft tissues are unremarkable. No mass lesion or abnormal enhancement. Vascular Structures: Unremarkable. Thyroid Gland: Normal. Lung: The visualized lung apices are clear. Bones: Separation of right greater horn with body of hyoid. No adjacent edema. There are mild degenerative changes of the cervical spine. Other: None. IMPRESSION: 1. 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 2. Mild degenerative changes of cervical spine. 3. Otherwise unremarkable neck CT. RADIA
[2019-10-04 14:07] VITALS: BP 135/90
== END 2019-10-04 14:12 | disposition home or self-care (01) ==
LOC: ED 09:31
DX: S12.8XXA Fracture of other parts of neck, initial encounter (principal); X58.XXXA Exposure to other specified factors, initial encounter; R56.9 Unspecified convulsions; I10 Essential (primary) hypertension; E11.9 Type 2 diabetes mellitus without complications; Z79.84 Long term (current) use of oral hypoglycemic drugs; F17.200 Nicotine dependence, unspecified, uncomplicated
CPT/HCPCS: 70491; 87070; 87430; 96374; 99283; 99284; Q9967; U0004; 81599

== ENCOUNTER 2019-10-06 08:42 | Outpatient (CLI) | payer MEDICARE, MEDICAID ==
[2019-10-06 09:15] LABS: BASOPHILS # (AUTO) 0.1 10^3/uL (0.0-0.1); BASOPHILS % (AUTO) 0.7 %; EOSINOPHILS # (AUTO) 0.2 10^3/uL (0.0-0.7); EOSINOPHILS % (AUTO) 1.7 %; HGB - HEMOGLOBIN 17.7 g/dL (12.0-16.0); LYMPHOCYTES # (AUTO) 2.4 10^3/uL (1.5-3.5); LYMPHOCYTES % (AUTO) 25.4 %; MEAN CORPUSCULAR HEMOGLOBIN 31.7 pg (27.0-31.0); MEAN CORPUSCULAR HGB CONC 34.5 g/dL (32.0-36.0); MEAN CORPUSCULAR VOLUME 91.8 fL (81.0-99.0); MEAN PLATELET VOLUME 9.2 fL (7.9-10.8); MONOCYTES # (AUTO) 0.7 10^3/uL (0.0-1.0); MONOCYTES % (AUTO) 7.7 %; NEUTROPHILS % (AUTO) 64.2 %; PLT - PLATELET COUNT 237 10^3/uL (130-450); RED BLOOD COUNT 5.59 10^6/uL (4.20-5.40); RED CELL DISTRIBUTION WIDTH 12.9 % (12.0-15.0); WHITE BLOOD COUNT 9.4 x10^3/uL (4.8-10.8)
[2019-10-06 09:36] LABS: BILIRUBIN,URINE NEGATIVE (NEGATIVE); GLUCOSE, URINE (UA) 250 mg/dL (NEGATIVE); KETONES,URINE (UA) TRACE mg/dL (NEGATIVE); LEUKOCYTE ESTERASE, URINE SMALL (NEGATIVE); NITRITE,URINE POSITIVE (NEGATIVE); OCCULT BLOOD,URINE NEGATIVE (NEGATIVE); PH,URINE 7.5 PH (5.0-7.5); PROTEIN,URINE 30 mg/dL (NEGATIVE); UROBILINOGEN,URINE 0.2 (NORMAL) E.U./dL (NORMAL)
[2019-10-06 09:52] LABS: CLARITY,URINE HAZY (CLEAR)
[2019-10-06 09:52] LABS: HB2 TOTAL 18.8 g/dL; HEMOGLOBIN A1C 1.62 g/dL
[2019-10-06 09:56] LABS: ALBUMIN 4.3 g/dL (3.2-5.5); ALBUMIN/GLOBULIN RATIO 1.4 (1.0-2.2); ALKALINE PHOSPHATASE 57 IU/L (42-121); ALT ALANINE AMINOTRANSFERASE 16 IU/L (10-60); AST ASPARTATE AMINOTRANSFERASE 12 IU/L (10-42); BILIRUBIN,TOTAL 0.8 mg/dL (0.2-1.0); BUN - BLOOD UREA NITROGEN 11 mg/dL (6-20); CALCIUM 9.2 mg/dL (8.5-10.3); CARBON DIOXIDE - CO2 25 mmol/L (21-32); CHLORIDE 99 mmol/L (101-111); CHOL/HDL RATIO 9.4 (<4.4); CHOLESTEROL 310 mg/dL; CREATININE 0.5 mg/dL (0.4-1.0); GLUCOSE 235 mg/dL (70-100); HDL CHOLESTEROL 33 mg/dL; SODIUM 132 mmol/L (135-145); TOTAL PROTEIN 7.4 g/dL (6.7-8.2)
[2019-10-06 10:15] LABS: BACTERIA,URINE Few /HPF (None Seen); RBC,URINE 0-5 /HPF (0-5); SQUAMOUS EPITHELIAL CELL,UR FEW Squamous (<= Few)
[2019-10-06 10:32] LABS: LDL CHOLESTEROL,DIRECT 197 mg/dL
== END 2019-10-06 08:43 | disposition home or self-care (01) ==
LOC: LAB 08:42
PROVIDERS: ATTEND Physician Assistant
DX: E11.9 Type 2 diabetes mellitus without complications (principal); E78.5 Hyperlipidemia, unspecified; R35.0 Frequency of micturition
CPT/HCPCS: 36415; 80053; 80061; 81001; 82607; 83036; 83721; 85025; 87086; 87181

== ENCOUNTER 2019-10-08 10:28 | Emergency (ER) | payer MEDICARE, MEDICAID ==
--- NOTE | 2019-10-08 11:50 | XRAY Report ---
Reason: Trauma Procedure Date: 10/08/2019 Accession Number: [id number] / [id number] Procedure: XR - Ankle 3 View LT CPT Code: Final Report FULL RESULT: EXAM: LEFT ANKLE RADIOGRAPHY EXAM DATE: 10/08/2019 10:42 AM. CLINICAL HISTORY: Fall, trauma, pain. COMPARISON: Left ankle radiographs from 05/23/2017. TECHNIQUE: 3 views. FINDINGS: Bones: No acute fracture demonstrated. Small posterior and plantar calcaneal spurs present. An os trigonum is noted. Joints: No dislocation or subluxation. Soft Tissues: There is mild soft tissue swelling over the lateral malleolus. IMPRESSION: 1. No acute fracture or malalignment. 2. Mild soft tissue swelling over the lateral malleolus. RADIA
--- NOTE | 2019-10-08 11:52 | XRAY Report ---
Reason: Trauma Procedure Date: 10/08/2019 Accession Number: [id number] / [id number] Procedure: XR - Foot 3 View LT CPT Code: Final Report FULL RESULT: EXAM: LEFT FOOT RADIOGRAPHY EXAM DATE: 10/08/2019 10:42 AM. CLINICAL HISTORY: Fall, trauma, pain. COMPARISON: Left foot radiographs from 06/24/2019. TECHNIQUE: 3 views. FINDINGS: Bones: No acute fracture. Os trigonum noted. Small posterior and plantar calcaneal spurs present. Joints: No dislocation or subluxation. Soft Tissues: Unremarkable. IMPRESSION: No acute osseous or articular abnormality. RADIA
--- NOTE | 2019-10-08 12:06 | XRAY Report ---
Reason: Trauma Procedure Date: 10/08/2019 Accession Number: [id number] / [id number] Procedure: XR - Knee 2 View LT CPT Code: Final Report FULL RESULT: EXAM: LEFT KNEE RADIOGRAPHY EXAM DATE: 10/08/2019 10:42 AM. CLINICAL HISTORY: Trauma. Fall while hiking. Pain. Difficulty with positioning due to pain and worry over increased injury. COMPARISON: KNEE 3 VIEW LT 06/24/2019 2:40 PM. TECHNIQUE: 2 views. FINDINGS: Limited evaluation due to patient positioning, especially on lateral view. Bones: No visible fracture or bone lesion. Joints: Mild degenerative changes with small tricompartmental osteophytes, similar prior exam. No definite effusion. No subluxation. Soft Tissues: No obvious regional soft tissue swelling. IMPRESSION: Study limited by difficulty with patient positioning due to pain. No definite fracture or malalignment. Mild degenerative changes. RADIA
--- NOTE | 2019-10-08 12:41 | ED Physician Documentation ---
History of Present Illness - Stated complaint Stated Complaint: L KNEE,ANKLE,FOOT - Chief complaint Chief Complaint: Ext Problem - History obtained from History obtained from: Patient - History of Present Illness Timing: Today Pain level max: 6 Pain level now: 5 - Additonal information Additional information: 39-year-old female presents to the emergency department stating that she fell down a hill earlier today injuring her left foot, left ankle and left knee. Pain with weightbearing. Has not taken anything for this. Worse with movement and better with rest. She states she also was recently treated for UTI and feels like she has a yeast infection. Requesting a dose of Diflucan. 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: Ovarian cysts : Incontinence HEENT: Chronic hearing loss Psych: Bipolar disorder Musculoskeletal: Osteoarthritis, Osteoporosis Derm: Other drug resistant infections - Past Surgical History Past Surgical History: Yes General: Cholecystectomy /DISPATCHER SERVICE: Tubal ligation, Other HEENT: Tonsil/Adenoidectomy, Other - Present Medications Home Medications: Ambulatory Orders Medication Instructions Recorded Confirmed Zonisamide [Zonegran] 200 mg PO BID 12/02/16 10/12/18 Metformin HCl 1,000 mg PO BIDWM 02/15/17 10/12/18 acetaZOLAMIDE [Acetazolamide ER] 1,000 mg PO BID 02/15/17 10/12/18 Atorvastatin Calcium 40 mg PO QPM 05/26/17 10/12/18 Albuterol Sulfate [Proventil Hfa 1 - 2 puffs IH Q4H PRN #1 11/26/17 10/12/18 Inhaler] hfa.aer.ad Meloxicam [Mobic] 15 mg PO DAILY PRN #20 tablet 08/19/18 10/12/18 Ciprofloxacin [Cipro] 250 mg PO Q12H #10 tablet 10/12/18 Pantoprazole [Protonix] 1 tab ORAL DAILY 10/12/18 10/12/18 Promethazine [Phenergan] 25 mg PO Q6H PRN #10 tab 10/12/18 methocarbamoL [Methocarbamol] 1 tab ORAL TID 10/12/18 10/12/18 Oxycodone HCl/Acetaminophen 1 - 2 each PO Q6H PRN #14 tablet 11/13/18 [Percocet 5-325 mg Tablet] Doxycycline Hyclate 100 mg PO BID #14 capsule 12/23/18 Loratadine [Allergy Relief] 10 mg PO DAILY #10 tablet 12/25/18 Cephalexin [Keflex] 500 mg PO Q6H #28 capsule 01/12/19 Clindamycin HCl [Clindamycin 300MG 300 mg PO Q6H #28 capsule 01/23/19 CAP] Acetaminophen/Cod 300/30 [Tylenol 1 each PO Q4-6H PRN #10 tablet 02/16/19 #3] Cefdinir 300 mg PO BID #20 capsule 03/17/19 Albuterol Sulf [Ventolin Hfa 1 - 2 puffs INH Q4HR PRN #1 inhaler 03/31/19 Inhaler] Azithromycin [Zithromax] 0 mg PO DAILY #6 tablet 03/31/19 Meloxicam [Mobic] 15 mg PO DAILY PRN #20 tablet 04/22/19 Diphenoxylate/Atropine [Lomotil] 1 each PO QID PRN #10 tablet 05/08/19 Ondansetron Odt [Zofran] 4 mg TL Q6H PRN #10 tablet 05/08/19 Ondansetron Odt [Zofran] 4 mg TL Q6H PRN #15 tablet 05/25/19 Promethazine [Phenergan] 25 mg PO Q6H PRN #20 tab 05/25/19 Sulfamethox/Trimeth 800/160 1 each PO BID #14 tablet 05/25/19 [Bactrim Ds 800/160] Albuterol Sulf [Ventolin Hfa 1 - 2 puffs INH Q4HR PRN #1 inhaler 07/28/19 Inhaler] Azithromycin [Zithromax] 250 mg PO DAILY #4 tablet 07/28/19 - Allergies Allergies/Adverse Reactions: Allergies Allergy/AdvReac Type Severity Reaction Status Date / Time doxycycline Allergy Intermediate Rash Verified 10/04/19 09:49 Latex, Natural Rubber Allergy Mild Rash Verified 10/04/19 09:49 acetaminophen [From Vicodin] Allergy Hives Verified 10/04/19 09:49 cefdinir Allergy Unknown Verified 10/04/19 09:49 ciprofloxacin [From Cipro] Allergy Unknown Verified 10/04/19 09:49 hydrocodone bitartrate * Allergy Hives Verified 10/04/19 09:49 [From Vicodin] Penicillins Allergy Rash Verified 10/04/19 09:49 tramadol Allergy Rash Verified 10/04/19 09:49 varenicline [From Chantix] Allergy Unknown Verified 10/04/19 09:49 adhesive AdvReac Intermediate chemical Verified 10/04/19 09:49 logan haloperidol [From Haldol] AdvReac Unknown Hallucinati Verified 10/04/19 09:49 ons iodine AdvReac Unknown Rash Verified 10/04/19 09:49 latex AdvReac Unknown Respiratory Verified 10/04/19 09:49 lamotrigine [From Lamictal] AdvReac Rash Verified 10/04/19 09:49 varenicline tartrate * AdvReac Hallucinati Verified 10/04/19 09:49 [From Chantix] ons bee Allergy Unknown Uncoded 08/03/19 11:23 steriods AdvReac Intermediate Unknown Uncoded 08/03/19 11:23 - Social History Does the pt smoke?: Yes Smoking Status: Current every day smoker Does the pt drink ETOH?: No Does the pt have substance abuse?: Yes - Immunizations Immunizations are current?: No - POLST Patient has POLST: No POLST Status: Full Code PD ED PE NORMAL - Vitals Vital signs reviewed: Yes - General General: Alert and oriented X 3, No acute distress - HEENT HEENT: Moist mucous membranes - Neck Neck: Supple, no meningeal sign - Back Back: No spinal TTP - Derm Derm: Warm and dry, No rash - Extremities Extremities: Other (Mild diffuse tenderness over the left knee, left ankle and left foot. Neurovascular intact. ACL, MCL, PCL, LCL are intact. No joint effusions. No deformity.) - Neuro Neuro: Alert and oriented X 3 - Psych Psych: Normal mood, Normal affect Results - Vitals Vitals: Vital Signs - 24 hr 10/08/19 10:33 Temperature 37 C Heart Rate 97 Respiratory 18 Rate Blood Pressure 121/80 O2 Saturation 98 Oxygen O2 Source Room air - Rads (name of study) Left knee x-ray Radiology: Prelim report reviewed, EMP read contemporaneously, See rad report (No acute bony abnormality) Left foot x-ray Radiology: Prelim report reviewed, EMP read contemporaneously, See rad report (No acute bony abnormality) Left ankle x-ray Radiology: Prelim report reviewed, EMP read contemporaneously, See rad report (No acute bony abnormality) PD MEDICAL DECISION MAKING - ED course Complexity details: reviewed results, re-evaluated patient, considered differential, d/w patient ED course: Patient with what appears to be a muscle strain/ligamentous sprains of the left lower extremity after a fall down the hill. She states she cannot use crutches. Therefore a walker was given to her. She can use Motrin and Tylenol as needed for pain at home. Does not require narcotics at this time. She was also given a dose of Diflucan as she feels she has a yeast infection after antibiotics. Patient counseled regarding signs and symptoms for which I believe and urgent re-evaluation would be necessary. Patient with good understanding of and agreement to plan and is comfortable going home at this time This document was made in part using voice recognition software. While efforts are made to proofread this document, sound alike and grammatical errors may occur. Departure - Departure Disposition: 01 Home, Self Care Clinical Impression: Leg pain, left, Vaginal yeast infection Fall Qualifiers: Encounter type: initial encounter Qualified Code(s): W19.XXXA - Unspecified fall, initial encounter Condition: Good Instructions: ED Strain Muscle Ext Follow-Up: Cassia Main PA [Primary Care Provider] - Within 1 week Comments: The x-rays of your left foot, left ankle and left knee do not show any acute abnormalities today. Please follow-up with your doctor for further care. You can use Motrin as needed for pain at home. You can use the walker to help you ambulate.
[2019-10-08] MEDS ORDERED: FLUCONAZOLE 100 MG TABLET PO STA (12:56)
[2019-10-08 13:20] VITALS: BP 112/75
== END 2019-10-08 13:24 | disposition home or self-care (01) ==
LOC: ED 10:28
DX: M79.672 Pain in left foot (principal); M25.572 Pain in left ankle and joints of left foot; M25.562 Pain in left knee; W10.2XXA Fall (on)(from) incline, initial encounter; Y93.01 Activity, walking, marching and hiking; Y92.828 Other wilderness area as the place of occurrence of the external cause; B37.3 Candidiasis of vulva and vagina; I10 Essential (primary) hypertension; E11.9 Type 2 diabetes mellitus without complications; Z79.84 Long term (current) use of oral hypoglycemic drugs; F17.200 Nicotine dependence, unspecified, uncomplicated
CPT/HCPCS: 73560; 73610; 73630; 99284; A9270

== ENCOUNTER 2019-11-21 12:21 | Emergency (ER) | payer MEDICARE, MEDICAID ==
[2019-11-21 13:22] VITALS: BP 158/92
[2019-11-21] MEDS ORDERED: oxyCODONE 5 MG TABLET PO STA (13:22)
[2019-11-21] MEDS ORDERED: FLUCONAZOLE 100 MG TABLET PO STA (13:23)
--- NOTE | 2019-11-21 13:24 | ED Physician Documentation ---
PD HPI HEENT - Stated complaint Stated Complaint: THROAT/TONGUE/JAW/EAR PX - Chief complaint Chief Complaint: Heent - History obtained from History obtained from: Patient (39-year-old woman presents with 2 days of severe oropharyngeal pain radiating to the left ear consistent with prior episodes of thrush. 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: Ovarian cysts : Incontinence HEENT: Chronic hearing loss Psych: Bipolar disorder Musculoskeletal: Osteoarthritis, Osteoporosis Derm: Other drug resistant infections - Past Surgical History Past Surgical History: Yes General: Cholecystectomy /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: Tubal ligation, Other HEENT: Tonsil/Adenoidectomy, Other - Present Medications Home Medications: Ambulatory Orders Medication Instructions Recorded Confirmed Zonisamide [Zonegran] 200 mg PO BID 12/02/16 10/12/18 Metformin HCl 1,000 mg PO BIDWM 02/15/17 10/12/18 acetaZOLAMIDE [Acetazolamide ER] 1,000 mg PO BID 02/15/17 10/12/18 Atorvastatin Calcium 40 mg PO QPM 05/26/17 10/12/18 Albuterol Sulfate [Proventil Hfa 1 - 2 puffs IH Q4H PRN #1 11/26/17 10/12/18 Inhaler] hfa.aer.ad Meloxicam [Mobic] 15 mg PO DAILY PRN #20 tablet 08/19/18 10/12/18 Ciprofloxacin [Cipro] 250 mg PO Q12H #10 tablet 10/12/18 Pantoprazole [Protonix] 1 tab ORAL DAILY 10/12/18 10/12/18 Promethazine [Phenergan] 25 mg PO Q6H PRN #10 tab 10/12/18 methocarbamoL [Methocarbamol] 1 tab ORAL TID 10/12/18 10/12/18 Oxycodone HCl/Acetaminophen 1 - 2 each PO Q6H PRN #14 tablet 11/13/18 [Percocet 5-325 mg Tablet] Doxycycline Hyclate 100 mg PO BID #14 capsule 12/23/18 Loratadine [Allergy Relief] 10 mg PO DAILY #10 tablet 12/25/18 Cephalexin [Keflex] 500 mg PO Q6H #28 capsule 01/12/19 Clindamycin HCl [Clindamycin 300MG 300 mg PO Q6H #28 capsule 01/23/19 CAP] Acetaminophen/Cod 300/30 [Tylenol 1 each PO Q4-6H PRN #10 tablet 02/16/19 #3] Cefdinir 300 mg PO BID #20 capsule 03/17/19 Albuterol Sulf [Ventolin Hfa 1 - 2 puffs INH Q4HR PRN #1 inhaler 03/31/19 Inhaler] Azithromycin [Zithromax] 0 mg PO DAILY #6 tablet 03/31/19 Meloxicam [Mobic] 15 mg PO DAILY PRN #20 tablet 04/22/19 Diphenoxylate/Atropine [Lomotil] 1 each PO QID PRN #10 tablet 05/08/19 Ondansetron Odt [Zofran] 4 mg TL Q6H PRN #10 tablet 05/08/19 Ondansetron Odt [Zofran] 4 mg TL Q6H PRN #15 tablet 05/25/19 Promethazine [Phenergan] 25 mg PO Q6H PRN #20 tab 05/25/19 Sulfamethox/Trimeth 800/160 1 each PO BID #14 tablet 05/25/19 [Bactrim Ds 800/160] Albuterol Sulf [Ventolin Hfa 1 - 2 puffs INH Q4HR PRN #1 inhaler 07/28/19 Inhaler] Azithromycin [Zithromax] 250 mg PO DAILY #4 tablet 07/28/19 Fluconazole 100 mg PO DAILY #14 tablet 11/21/19 Oxycodone HCl/Acetaminophen 1 - 2 each PO Q6H PRN #10 tablet 11/21/19 [Percocet 5-325 mg Tablet] - Allergies Allergies/Adverse Reactions: Allergies Allergy/AdvReac Type Severity Reaction Status Date / Time doxycycline Allergy Intermediate Rash Verified 11/21/19 12:39 Latex, Natural Rubber Allergy Mild Rash Verified 11/21/19 12:39 acetaminophen [From Vicodin] Allergy Hives Verified 11/21/19 12:39 cefdinir Allergy Unknown Verified 11/21/19 12:39 ciprofloxacin [From Cipro] Allergy Unknown Verified 11/21/19 12:39 hydrocodone bitartrate * Allergy Hives Verified 11/21/19 12:39 [From Vicodin] Penicillins Allergy Rash Verified 11/21/19 12:39 tramadol Allergy Rash Verified 11/21/19 12:39 varenicline [From Chantix] Allergy Unknown Verified 11/21/19 12:39 adhesive AdvReac Intermediate chemical Verified 11/21/19 12:39 logan haloperidol [From Haldol] AdvReac Unknown Hallucinati Verified 11/21/19 12:39 ons iodine AdvReac Unknown Rash Verified 11/21/19 12:39 latex AdvReac Unknown Respiratory Verified 11/21/19 12:39 lamotrigine [From Lamictal] AdvReac Rash Verified 11/21/19 12:39 varenicline tartrate * AdvReac Hallucinati Verified 11/21/19 12:39 [From Chantix] ons bee Allergy Unknown Uncoded 11/21/19 12:39 steriods AdvReac Intermediate Unknown Uncoded 11/21/19 12:39 - Social History Does the pt smoke?: Yes Smoking Status: Current every day smoker Does the pt drink ETOH?: No Does the pt have substance abuse?: Yes Substance Use and Type: Marijuana - Immunizations Immunizations are current?: No Immunizations: TDAP >10years/unknown - POLST Patient has POLST: No POLST Status: Full Code PD ED PE NORMAL - Vitals Vital signs reviewed: Yes - General General: Alert and oriented X 3 (She appears uncomfortable and in pain) - HEENT HEENT: Other (She has actually a pretty bad case of oropharyngeal candidiasis of the tongue, gums, and oropharynx. Moderate cervical reactive adenopathy.) - Neck Neck: Supple, no meningeal sign - Neuro Neuro: Alert and oriented X 3, Normal speech Results - Vitals Vitals: Vital Signs - 24 hr 11/21/19 11/21/19 12:37 13:21 Temperature 37.1 C 36.8 C Heart Rate 92 93 Respiratory 14 20 Rate Blood Pressure 141/79 H 158/92 H O2 Saturation 97 98 Oxygen O2 Source Room air Departure - Departure Disposition: 01 Home, Self Care Clinical Impression: Oropharyngeal candidiasis Condition: Good Record reviewed to determine appropriate education?: Yes Instructions: ED Sabiha Esophagitis Prescriptions: Fluconazole 100 mg PO DAILY #14 tablet Oxycodone HCl/Acetaminophen [Percocet 5-325 mg Tablet] 1 - 2 each PO Q6H PRN #10 tablet PRN Reason: pain Comments: Call your doctor to arrange a follow-up appointment, make the next available appointment. In the interim, return anytime if worse or if new symptoms develop.
== END 2019-11-21 13:47 | disposition home or self-care (01) ==
LOC: ED 12:21
DX: B37.0 Candidal stomatitis (principal); B37.89 Other sites of candidiasis; I10 Essential (primary) hypertension; E11.9 Type 2 diabetes mellitus without complications; Z79.84 Long term (current) use of oral hypoglycemic drugs; F17.200 Nicotine dependence, unspecified, uncomplicated
CPT/HCPCS: 99282; 99283; A9270

== ENCOUNTER 2020-01-02 08:00 | Outpatient (CLI) | payer MEDICARE, MEDICAID ==
--- NOTE | 2020-01-02 14:00 | XRAY Report ---
PROCEDURE: Ankle 3 View BILAT INDICATIONS: BILATERAL ANKLE PAIN AFTER FALL TECHNIQUE: 3 views of the right ankle and left ankle ankle were acquired. COMPARISON: None FINDINGS: Bones: No fractures or dislocations. Asymmetry in the right ankle mortise with lateral right widenin g in the oblique view. No suspicious bony lesions. Large dorsal and plantar bilateral calcaneal bone spurs. Soft tissues: No tibiotalar joint effusion. Achilles tendon appears normal. IMPRESSION: 1. No fracture. No acute osseous lesion. If there is continued clinical concern for pathology, then r epeat plain film radiographs (7-10 days) or advanced imaging (CT, MR, bone scan) should be considered for further evaluation. 2. Large bilateral calcaneal bone spurs. 3. Slight widening of the lateral margin of the right ankle mortise and oblique view. Ligamentous inj ury cannot be excluded. Reviewed by: Tana Stock MD, PhD on 01/02/2020 1:58 PM PDT Approved by: Tana Stock MD, PhD on 01/02/2020 1:58 PM PDT Station ID: [id number]
--- NOTE | 2020-01-02 14:05 | XRAY Report ---
PROCEDURE: Lumbar Spine Complete INDICATIONS: LOW BACK PAIN FOLLOWING FALL TECHNIQUE: 5 views of the lumbar spine were acquired. COMPARISON: None. FINDINGS: Bones: 5 nonrib-bearing vertebrae are present. There is trace L2-L3 and L3-L4 retrolisthesis. Appro ximately 11 degrees of convex left lumbar spine scoliosis. No vertebral body compression fractures. No suspicious bony lesions. Moderate L4-L5 and L5-S1 degenerative disc disease. Mild to moderate L2-L 3 degenerative disc disease. Mild L1-L2 and L3-L4 degenerative disc disease. Mild L4-L5 and L5-S1 fac et arthropathy. Soft tissues: Overlying bowel gas pattern is normal. No suspicious soft tissue calcifications. Tuba l ligation clips noted. Oblique images: No pars defects. IMPRESSION: 1. Multilevel degenerative disc disease. 2. Multilevel facet arthropathy. 3. No fracture. No acute osseous lesion. If there is continued clinical concern for pathology, then M RI should be considered for further evaluation. Reviewed by: Tana Stock MD, PhD on 01/02/2020 2:03 PM PDT Approved by: Tana Stock MD, PhD on 01/02/2020 2:03 PM PDT Station ID: [id number]
== END 2020-01-02 23:59 | disposition home or self-care (01) ==
LOC: DI.S 08:00
PROVIDERS: ATTEND Physician Assistant Medical
DX: M51.37 Other intervertebral disc degeneration, lumbosacral region (principal); M25.571 Pain in right ankle and joints of right foot; M25.572 Pain in left ankle and joints of left foot; M77.32 Calcaneal spur, left foot; M77.31 Calcaneal spur, right foot
CPT/HCPCS: 72110

== ENCOUNTER 2020-01-09 13:11 | Outpatient (CLI) | payer MEDICARE, MEDICAID | END 2020-01-09 13:12 | disposition critical access hospital (66) | LOC: EMS 13:11 | PROVIDERS: ATTEND Surgery | DX: R00.0 Tachycardia, unspecified (principal); R42 Dizziness and giddiness; R51 Headache; R11.2 Nausea with vomiting, unspecified | CPT/HCPCS: A0425; A0427 ==

== ENCOUNTER 2020-01-09 13:45 | Emergency (ER) | payer MEDICARE, MEDICAID ==
--- NOTE | 2020-01-09 13:54 | ED Physician Documentation ---
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: Ovarian cysts : Incontinence HEENT: Chronic hearing loss Psych: Bipolar disorder Musculoskeletal: Osteoarthritis, Osteoporosis Derm: Other drug resistant infections - Past Surgical History Past Surgical History: Yes General: 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, Other HEENT: Tonsil/Adenoidectomy, Other - Present Medications Home Medications: Ambulatory Orders Medication Instructions Recorded Confirmed Zonisamide [Zonegran] 200 mg PO BID 12/02/16 10/12/18 Metformin HCl 1,000 mg PO BIDWM 02/15/17 10/12/18 acetaZOLAMIDE [Acetazolamide ER] 1,000 mg PO BID 02/15/17 10/12/18 Atorvastatin Calcium 40 mg PO QPM 05/26/17 10/12/18 Albuterol Sulfate [Proventil Hfa 1 - 2 puffs IH Q4H PRN #1 11/26/17 10/12/18 Inhaler] hfa.aer.ad Meloxicam [Mobic] 15 mg PO DAILY PRN #20 tablet 08/19/18 10/12/18 Ciprofloxacin [Cipro] 250 mg PO Q12H #10 tablet 10/12/18 Pantoprazole [Protonix] 1 tab ORAL DAILY 10/12/18 10/12/18 Promethazine [Phenergan] 25 mg PO Q6H PRN #10 tab 10/12/18 methocarbamoL [Methocarbamol] 1 tab ORAL TID 10/12/18 10/12/18 Oxycodone HCl/Acetaminophen 1 - 2 each PO Q6H PRN #14 tablet 11/13/18 [Percocet 5-325 mg Tablet] Doxycycline Hyclate 100 mg PO BID #14 capsule 12/23/18 Loratadine [Allergy Relief] 10 mg PO DAILY #10 tablet 12/25/18 Cephalexin [Keflex] 500 mg PO Q6H #28 capsule 01/12/19 Clindamycin HCl [Clindamycin 300MG 300 mg PO Q6H #28 capsule 01/23/19 CAP] Acetaminophen/Cod 300/30 [Tylenol 1 each PO Q4-6H PRN #10 tablet 02/16/19 #3] Cefdinir 300 mg PO BID #20 capsule 03/17/19 Albuterol Sulf [Ventolin Hfa 1 - 2 puffs INH Q4HR PRN #1 inhaler 03/31/19 Inhaler] Azithromycin [Zithromax] 0 mg PO DAILY #6 tablet 03/31/19 Meloxicam [Mobic] 15 mg PO DAILY PRN #20 tablet 04/22/19 Diphenoxylate/Atropine [Lomotil] 1 each PO QID PRN #10 tablet 05/08/19 Ondansetron Odt [Zofran] 4 mg TL Q6H PRN #10 tablet 05/08/19 Ondansetron Odt [Zofran] 4 mg TL Q6H PRN #15 tablet 05/25/19 Promethazine [Phenergan] 25 mg PO Q6H PRN #20 tab 05/25/19 Sulfamethox/Trimeth 800/160 1 each PO BID #14 tablet 05/25/19 [Bactrim Ds 800/160] Albuterol Sulf [Ventolin Hfa 1 - 2 puffs INH Q4HR PRN #1 inhaler 07/28/19 Inhaler] Azithromycin [Zithromax] 250 mg PO DAILY #4 tablet 07/28/19 Fluconazole 100 mg PO DAILY #14 tablet 11/21/19 Oxycodone HCl/Acetaminophen 1 - 2 each PO Q6H PRN #10 tablet 11/21/19 [Percocet 5-325 mg Tablet] Azithromycin [Zithromax] 0 mg PO DAILY #6 tablet 01/09/20 Fluconazole [Diflucan] 150 mg PO Q3D #3 tablet 01/09/20 Nystatin 250,000 unit PO TID #60 ml 01/09/20 - Allergies Allergies/Adverse Reactions: Allergies Allergy/AdvReac Type Severity Reaction Status Date / Time doxycycline Allergy Intermediate Rash Verified 11/21/19 12:39 Latex, Natural Rubber Allergy Mild Rash Verified 11/21/19 12:39 acetaminophen [From Vicodin] Allergy Hives Verified 11/21/19 12:39 cefdinir Allergy Unknown Verified 11/21/19 12:39 ciprofloxacin [From Cipro] Allergy Unknown Verified 11/21/19 12:39 hydrocodone bitartrate * Allergy Hives Verified 11/21/19 12:39 [From Vicodin] Penicillins Allergy Rash Verified 11/21/19 12:39 tramadol Allergy Rash Verified 11/21/19 12:39 varenicline [From Chantix] Allergy Unknown Verified 11/21/19 12:39 adhesive AdvReac Intermediate chemical Verified 11/21/19 12:39 logan haloperidol [From Haldol] AdvReac Unknown Hallucinati Verified 11/21/19 12:39 ons iodine AdvReac Unknown Rash Verified 11/21/19 12:39 latex AdvReac Unknown Respiratory Verified 11/21/19 12:39 lamotrigine [From Lamictal] AdvReac Rash Verified 11/21/19 12:39 varenicline tartrate * AdvReac Hallucinati Verified 11/21/19 12:39 [From Chantix] ons bee Allergy Unknown Uncoded 11/21/19 12:39 steriods AdvReac Intermediate Unknown Uncoded 11/21/19 12:39 - Social History Does the pt smoke?: Yes Smoking Status: Current every day smoker Does the pt drink ETOH?: No Does the pt have substance abuse?: Yes - Immunizations Immunizations are current?: No Immunizations: TDAP >10years/unknown - POLST Patient has POLST: No POLST Status: Full Code Results - Vitals Vitals: Vital Signs - 24 hr 01/09/20 01/09/20 01/09/20 13:56 14:01 14:42 Temperature 36.8 C Heart Rate 88 80 84 Respiratory 20 16 20 Rate Blood Pressure 112/87 H 115/85 H O2 Saturation 97 98 Oxygen O2 Source Room air - Labs Labs: Laboratory Tests 01/09/20 01/09/20 01/09/20 14:29 14:29 14:29 WBC 10.5 RBC 5.01 Hgb 16.2 H Hct 44.9 MCV 89.6 MCH 32.3 H MCHC 36.1 H RDW 12.1 Plt Count 284 MPV 8.9 Neut # (Auto) 6.2 Lymph # (Auto) 3.5 [place] # (Auto) 0.6 Eos # (Auto) 0.1 Baso # (Auto) 0.1 Absolute Nucleated RBC 0.00 Nucleated RBC % 0.0 Sodium 138 Potassium 3.5 Chloride 103 Carbon Dioxide 22 Anion Gap 13.0 BUN 9 Creatinine 0.5 Estimated GFR (MDRD) 139 Glucose 144 H Calcium 9.3 Magnesium 2.0 Total Bilirubin 0.7 AST 12 ALT 20 Alkaline Phosphatase 56 Troponin I High Sens < 2.3 L B-Natriuretic Peptide Total Protein 7.1 Albumin 4.2 Globulin 2.9 Albumin/Globulin Ratio 1.4 Lipase 112 H 01/09/20 14:29 WBC RBC Hgb Hct MCV MCH MCHC RDW Plt Count MPV Neut # (Auto) Lymph # (Auto) [place] # (Auto) Eos # (Auto) Baso # (Auto) Absolute Nucleated RBC Nucleated RBC % Sodium Potassium Chloride Carbon Dioxide Anion Gap BUN Creatinine Estimated GFR (MDRD) Glucose Calcium Magnesium Total Bilirubin AST ALT Alkaline Phosphatase Troponin I High Sens B-Natriuretic Peptide 20 Total Protein Albumin Globulin Albumin/Globulin Ratio Lipase Departure - Departure Disposition: 01 Home, Self Care Clinical Impression: Chest tightness, Thrush Dyspnea Qualifiers: Dyspnea type: shortness of breath Qualified Code(s): R06.02 - Shortness of breath Back pain Qualifiers: Back pain location: thoracic back pain Chronicity: acute Back pain laterality: midline Qualified Code(s): M54.6 - Pain in thoracic spine Condition: Stable Record reviewed to determine appropriate education?: Yes Instructions: ED Dyspnea Shortness of Breath Follow-Up: Cassia Main PA [Primary Care Provider] - Prescriptions: Fluconazole [Diflucan] 150 mg PO Q3D #3 tablet Nystatin 250,000 unit PO TID #60 ml Azithromycin [Zithromax] 0 mg PO DAILY #6 tablet Comments: Your EKG chest x-ray and blood test markers for heart are normal so no signs of pneumonia, fluid around the lungs, heart failure, heart attack. Your EKG is normal showing no abnormal heart rhythm. You were wheezing congested so presuming some exacerbation of asthma with some possible bronchitis. Again no pneumonia seen on x-ray. This can be just environmental versus infectious. We can give antibiotic for it. Otherwise use some anti-inflammatories such as naproxen 2 tablets 2-3 times daily. Use your Combivent inhaler 2 puffs 3-4 times a day for the next several days regularly and then twice a day for the week after. Add albuterol if needed for wheeziness. Diflucan and Nystatin for thrush. Rxw were transmitted to [facility]. Recheck if not improving well over the next few days.
[2020-01-09] MEDS: MORPHINE 2 MG/ML CARPUJECT IVP STA (14:21)
[2020-01-09] MEDS: KETOROLAC 15 MG/ML VIAL IVP STA ×2 (14:22→15:46)
[2020-01-09 14:36] LABS: BASOPHILS # (AUTO) 0.1 10^3/uL (0.0-0.1); BASOPHILS % (AUTO) 0.8 %; EOSINOPHILS # (AUTO) 0.1 10^3/uL (0.0-0.7); HGB - HEMOGLOBIN 16.2 g/dL (12.0-16.0); LYMPHOCYTES # (AUTO) 3.5 10^3/uL (1.5-3.5); LYMPHOCYTES % (AUTO) 33.2 %; MEAN CORPUSCULAR HEMOGLOBIN 32.3 pg (27.0-31.0); MEAN CORPUSCULAR HGB CONC 36.1 g/dL (32.0-36.0); MEAN CORPUSCULAR VOLUME 89.6 fL (81.0-99.0); MEAN PLATELET VOLUME 8.9 fL (7.9-10.8); MONOCYTES # (AUTO) 0.6 10^3/uL (0.0-1.0); NEUTROPHILS # (AUTO) 6.2 10^3/uL (1.5-6.6); NEUTROPHILS % (AUTO) 58.7 %; PLT - PLATELET COUNT 284 10^3/uL (130-450); RED BLOOD COUNT 5.01 10^6/uL (4.20-5.40); RED CELL DISTRIBUTION WIDTH 12.1 % (12.0-15.0); WHITE BLOOD COUNT 10.5 x10^3/uL (4.8-10.8)
[2020-01-09] MEDS: IPRATROPIUM/ALBUTEROL 3 ML NEB INH STA (14:41)
[2020-01-09 14:49] LABS: ALBUMIN 4.2 g/dL (3.2-5.5); ALBUMIN/GLOBULIN RATIO 1.4 (1.0-2.2); BILIRUBIN,TOTAL 0.7 mg/dL (0.2-1.0); CALCIUM 9.3 mg/dL (8.5-10.3); CREATININE 0.5 mg/dL (0.4-1.0); TOTAL PROTEIN 7.1 g/dL (6.7-8.2)
--- NOTE | 2020-01-09 14:55 | XRAY Report ---
PROCEDURE: Chest 1 View X-Ray INDICATIONS: chest pressure and dyspnea; no cough nor fever TECHNIQUE: One view of the chest was acquired. COMPARISON: 08/03/2019 FINDINGS: Lordotic patient position. Surgical changes and devices: None. Lungs and pleura: No pleural effusions or pneumothorax. Lungs are clear. Mediastinum: Mediastinal contours appear normal. Heart size is normal. Bones and chest wall: No suspicious bony lesions. Overlying soft tissues appear unremarkable. IMPRESSION: Stable exam without acute cardiopulmonary disease. Reviewed by: Neisha Ureña MD on 01/09/2020 2:53 PM PDT Approved by: Neisha Ureña MD on 01/09/2020 2:53 PM PDT Station ID: [id number]
[2020-01-09 16:01] VITALS: BP 122/78
== END 2020-01-09 16:03 | disposition home or self-care (01) ==
LOC: EDUNIT# → ED 13:45
DX: R07.89 Other chest pain (principal); B37.0 Candidal stomatitis; J44.9 Chronic obstructive pulmonary disease, unspecified; F17.200 Nicotine dependence, unspecified, uncomplicated; M54.6 Pain in thoracic spine; I10 Essential (primary) hypertension; E11.9 Type 2 diabetes mellitus without complications; Z79.84 Long term (current) use of oral hypoglycemic drugs
CPT/HCPCS: 36415; 71045; 80053; 83690; 83735; 83880; 84484; 85025; 93005; 94640; 96374; 96375; 96376; 99281

== ENCOUNTER 2020-02-09 08:00 | Outpatient (CLI) | payer MEDICAID, MEDICARE | END 2020-02-09 23:59 | disposition home or self-care (01) | LOC: LAB.S 08:00 | PROVIDERS: ATTEND Emergency Medicine | DX: N64.52 Nipple discharge (principal) | CPT/HCPCS: 87070; 87205 ==

== ENCOUNTER 2020-03-05 08:28 | Outpatient (CLI) | payer MEDICARE, MEDICAID ==
--- NOTE | 2020-03-09 16:00 | Mammography Report ---
BILATERAL DIGITAL DIAGNOSTIC MAMMOGRAM 3D/2D: 03/05/2020 CLINICAL: Nipple discharge, right breast. No prior exams were available for comparison. The tissue of both breasts is extremely dense, which l owers the sensitivity of mammography. There is a 3 cm irregular equal density focal asymmetry with an indistinct margin in the left breast at 6 o'clock middle depth. There also is a 7 mm oval mass with a circumscribed margin in the left breast at 5 o'clock middle dep th. No other significant masses, calcifications, or other findings are seen in either breast. IMPRESSION: INCOMPLETE: NEEDS ADDITIONAL IMAGING EVALUATION The 3 cm irregular equal density focal asymmetry in the left breast at 6 o'clock middle depth is inde terminate. An ultrasound is recommended. The 7 mm oval mass in the left breast at 5 o'clock middle depth is indeterminate. An ultrasound is r ecommended. There is no abnormality seen in the right breast to correspond with the bloody discharge from the nip ple, however, ultrasound is recommended. This exam was interpreted at Station ID: [id number]. NOTE: For mammograms, a report in lay terms will be sent to the patient. Approximately 15% of breast malignancies will not be visualized mammographically. In the management of a palpable breast mass, a negative mammogram must not discourage biopsy of a clinically suspicious lesion. SUMMARY: Targeted ultrasound is recommended for further evaluation and will be scheduled immediately following this exam. Electronically Signed By: Donis Gonzalez M.D. ar/:03/07/2020 10:12:24 ACR BI-RADS Category 0: Incomplete 3340F PARENCHYMAL PATTERN: (VD) - The breast(s) demonstrate(s) extremely dense parenchyma, limiting the sen sitivity of mammography. BI-RADS CATEGORY: (0) - 0 Ultrasound [id number] Immediate follow-up LATERALITY: (B)
--- NOTE | 2020-03-09 16:00 | Ultrasound Report ---
LIMITED ULTRASOUND OF RIGHT BREAST: 03/05/2020 CLINICAL: Bloody nipple discharge right breast. Comparison is made to exam dated: 03/06/2020 mammogram - [facility]. Ultrasound of the right breast retroareolar was performed. No significant abnormalities were seen sonographically in the right breast. IMPRESSION: PROBABLY BENIGN There is no abnormality seen in the right breast to correspond with the bloody discharge from the nip ple in the sub-areolar depth. Recommend clinical correlation and possible Surgical consultation if in dicated once pathology from the pending contralateral left breast biopsy has been obtained. This exam was interpreted at Station ID: [id number]. Electronically Signed By: Donis Gonzalez M.D. ar/:03/07/2020 10:45:24 Ultrasound BI-RADS: 3 Probably benign BI-RADS CATEGORY: (3) - 3 Unspecified - other recall n/a LATERALITY: (B)
--- NOTE | 2020-03-09 16:00 | Ultrasound Report ---
LIMITED ULTRASOUND OF LEFT BREAST: 03/05/2020 CLINICAL: Patient returns for additional imaging over a suspected mass in the left breast. Comparison is made to exam dated: 03/06/2020 mammogram - [facility]. Ultrasound of the left breast 5-6 o'clock region was performed. There is a 2.6 cm x 0.6 cm x 1.4 cm irregular mass with a circumscribed margin in the left breast at 5 o'clock posterior depth 3 cm from the nipple. This irregular mass is hypoechoic with posterior aco ustic enhancement. This correlates with mammography findings. Color flow imaging demonstrates that there is no increase in vascularity. There also is a lymph node with uniform cortical thickening with a circumscribed margin in the left a xillary tail. This lymph node is hypoechoic with fatty hilum. Additionally, there is a benign 0.8 cm x 1.1 cm x 0.6 cm oval simple cyst with a smooth internal wall in the left breast at 5 o'clock anterior depth 3 cm from the nipple. This oval simple cyst displays posterior acoustic enhancement. This correlates with mammography findings. IMPRESSION: SUSPICIOUS OF MALIGNANCY The 2.6 cm x 0.6 cm x 1.4 cm irregular mass in the left breast at 5 o'clock posterior depth is at a l ow suspicion for malignancy. An ultrasound guided biopsy is recommended. The findings and recommend ations were discussed with the patient in person at the time of the exam. The lymph node with uniform cortical thickening in the left axillary tail is probably benign. If the left breast biopsy results in benign pathology, then these lymph nodes may be reactive and may be fo llowed up in 6 months. If the biopsy is malignant, then axillary lymph node biopsy should be pursued. The 0.8 cm x 1.1 cm x 0.6 cm oval simple cyst in the left breast at 5 o'clock anterior depth is benig n. This exam was interpreted at Station ID: [id number]. Electronically Signed By: Donis Gonzalez M.D. ar/:03/07/2020 10:26:05 Ultrasound BI-RADS: 4a Low suspicion for malignancy BI-RADS CATEGORY: (4a) - Low Susp None [id number] Immediate follow-up LATERALITY: ()
== END 2020-03-05 08:29 | disposition home or self-care (01) ==
LOC: DI 08:28
PROVIDERS: ATTEND Family Medicine
DX: N63.23 Unspecified lump in the left breast, lower outer quadrant (principal)
CPT/HCPCS: 76642; 77066

== ENCOUNTER 2020-03-08 12:52 | Outpatient (CLI) | payer MEDICARE, MEDICAID ==
[2020-03-08] MEDS ORDERED: BUFFERED LIDOCAINE 10 ML SYRINGE IU ONE (15:04)
--- NOTE | 2020-03-12 11:32 | Mammography Report ---
UNILATERAL LEFT DIGITAL DIAGNOSTIC MAMMOGRAM 3D/2D: 03/08/2020 CLINICAL: Post left breast ultrasound biopsy clip placement imaging. Comparison is made to exams dated: 03/05/2020 ultrasound, 03/05/2020 ultrasound, 03/05/2020 mammogra m, and [facility] The tissue of left breast is extremely de nse, which lowers the sensitivity of mammography. There is a marker clip in the appropriate position in the left breast at 5 o'clock anterior-middle de pth. This marker clip placement is at the biopsy site. This correlates with the biopsy. IMPRESSION: POST PROCEDURE MAMMOGRAM FOR MARKER PLACEMENT There was a successful marker clip placement in the left breast middle depth. This exam was interpreted at Station ID: [id number]. NOTE: For mammograms, a report in lay terms will be sent to the patient. Approximately 15% of breast malignancies will not be visualized mammographically. In the management of a palpable breast mass, a negative mammogram must not discourage biopsy of a clinically suspicious lesion. Electronically Signed By: Kyle Corona M.D. aty/:03/09/2020 08:44:05 ACR BI-RADS Category Post-procedure mammogram for marker placement PARENCHYMAL PATTERN: (VD) - The breast(s) demonstrate(s) extremely dense parenchyma, limiting the sen sitivity of mammography. BI-RADS CATEGORY: () - Unspecified - other recall n/a LATERALITY: (B)
--- NOTE | 2020-03-12 11:32 | Ultrasound Report ---
ULTRASOUND GUIDED BIOPSY LEFT BREAST WITH MARKING DEVICE INSERTED AND POST DIGITAL MAMMOGRAPHIC IMAGI N03/08/2020 CLINICAL: Left breast mass. PATIENT CONSENT: Risks (minor bleeding, infection, vasovagal reaction and repeat procedure), benefits and alternatives were explained to the patient and written informed consent was obtained. Correlation is made to exams dated: 03/08/2020 mammogram, 03/05/2020 ultrasound, 03/05/2020 mammogra m, 10/29/2016 ultrasound, and 08/06/2013 ultrasound - [facility]. An ultrasound guided biopsy using real-time ultrasound was performed for the 2.1 cm x 2 cm x 0.6 cm w ider than tall mass located in the left breast at 5 o'clock anterior depth 3 cm from the nipple. Thi s was described on the previous ultrasound report. The skin was prepped in the usual manner. Local anesthetic was administered to the access site. A skin diamond was made in the breast. The abnormality was approached from the lateral aspect. A 12 gauge biopsy needle was placed adjacent to the abnorma lity through an introducer device under ultrasound guidance. Once the needle was documented to be in the correct location, five specimens were obtained using the Marquee biopsy device. A clip was inse rted into the biopsy cavity. Post procedure digital mammographic imaging demonstrates the location d evice at the targeted area. The specimens were sent to the laboratory for pathological analysis. IMPRESSION: ULTRASOUND GUIDED BIOPSY BENIGN Ultrasound guided biopsy of the 2.1 cm x 2 cm x 0.6 cm wider than tall mass in the left breast at 5 o 'clock anterior depth 3 cm from the nipple was successful. Pathology indicates benign sclerosing chris nosis. Pathology results are concordant with imaging findings. A follow-up mammogram and an ultrasound in 6 months is recommended to demonstrate stability. This exam was interpreted at Station ID: [id number]. SUMMARY: 1. The biopsied mass in the left breast at the 5 o'clock position posterior depth is benign. 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 2. The mildly thickened left axillary lymph node is most likely reactive and considered probably june gn. A follow up left breast diagnostic mammogram and ultrasound is recommended in 6 months to demonst rate stability. 3. The contraleral right breast bloody nipple discharge with no imaging mammographic or sonographic c orrelate is probably benign. If symptoms have not resolved, consider Breast Surgery consultation for further evaluation. Otherwise, 6-month follow up may be performed. Kyle blanc,ar/:03/12/2020 10:50:50 BI-RADS CATEGORY: () - Mammo and [place] [id number] 6 month follow-up LATERALITY: (B)
== END 2020-03-08 12:53 | disposition home or self-care (01) ==
LOC: DI 12:52
PROVIDERS: ATTEND Physician Assistant
DX: N60.22 Fibroadenosis of left breast (principal); R92.0 Mammographic microcalcification found on diagnostic imaging of breast
CPT/HCPCS: 19083